=== PATIENT | female | born 1955 | race Caucasian/White ===

== ENCOUNTER → 2020-02-13 15:00 | Outpatient (REF) | payer MEDICAID, SELFPAY ==
--- NOTE | 2020-02-13 14:59 | CA_ITS ---
Transthoracic Echocardiogram Patient (Last, First, Middle): Amy Walker N Gender: Female Date of : 1955 Age: 64 Procedure Date: 02/13/2020 Procedure Type: Transthoracic Echocardiogram Location: OP Height: 154. cm Weight: 76.2 kg BSA: 1.75 m2 Heart Rate: bpm BP: 112 / 73 mmHg Iron Assorter: DSG Referring MD: Brendan Burks MD Symptoms: I42.9 Study Quality: Good ECG Rhythm: Sinus Conclusions: - The left ventricular systolic function is normal. The visually estimated ejection fraction is between 60-65%. Findings Procedure Information Contrast agent, definity, is being given per protocol without apparent complications. Left Ventricle Normal left ventricular cavity size. There is normal left ventricular wall thickness. The left ventricular systolic function is normal. The visually estimated ejection fraction is between 60-65%. There is no evidence of regional wall motion abnormalities. E/E prime ratio is <8, consistent with normal filling pressures. Evidence suggests grade I (mild) diastolic dysfunction. Right Ventricle Normal right ventricular cavity size and systolic function. Prior Study Comparison No significant change compared to prior study dated: 11/14/2019. Measurements 2D Systolic Function EF 4C: 58.60 >55% EF 2C: 71.80 >55% EF BiP: 63.20 >55% Mitral Valve MV Pk E: 0.46 MV PK A: 0.81 MV Decel Time: 74.00 E/A: 0.60 E'Lateral: 6.29 E'Medial: 4.64 E/E' Med: 9.80 E/E' Lat: 7.20 PHT: 22.00 MVA PHT: 10.00 Decel Green: 6.17 Diastolic Function MV Pk E: 0.46 MV Pk A: 0.81 E/A: 0.60 E'Medial: 4.64 E/E' Med: 9.80 E' Laterial: 6.29 E/E' Lat: 7.20 Updated in Other Vendor System with Status of Final Gus Dobbins MD electronically signed on 02/14/2020 11:59:12 AM with status of Final
== END ==
LOC: HO.CARD 15:00
PROVIDERS: PCP Family Medicine; Visit Provider Internal Medicine Cardiovascular Disease
DX: I42.9 Cardiomyopathy, unspecified (principal)
CPT/HCPCS: 70120; Q9957

== ENCOUNTER 2020-03-20 06:41 | Day surgery (SDC) | payer MEDICAID, SELFPAY ==
[2020-03-14 10:43] VITALS: BMI 33.6
--- NOTE | 2020-03-14 14:53 | HO.ANESPROP2 ---
Documented by User: Shannan Rosales 03/19/20 08:34 HPI - Anesthesia Eval Consult details Narrative: 64yo F for Colonoscopy s/p EGD and Colonoscopy with MAC during pt admit with DKA, GIB (seen by cardiology during admission and stated optimized and low risk) [facility] Past Medical History Medical History Anemia Ascending aorta dilatation Asthma CAD (coronary artery disease) CHF (congestive heart failure) Elevated cholesterol Fatty liver GERD (gastroesophageal reflux disease) History of alcohol dependence HTN (hypertension) Hx of acute pancreatitis Hx of acute renal failure Hx of diabetes with ketoacidosis Hx of non-ST elevation myocardial infarction (NSTEMI) IDDM (insulin dependent diabetes mellitus) Non-ischemic cardiomyopathy Sleep apnea Surgical History Surgical History History of cardiac cath History of esophagogastroduodenoscopy (EGD) History of partial hysterectomy Hx of cholecystectomy Hx of colonoscopy Hx of lithotripsy Social History Social History Alcohol intake: former Year quit: 2018 Smoking Status: Never smoker Advance Directives: No Advance Directives Information Provided: No Advance Directives on File: No Meds Allergies Allergy/AdvReac Type Severity Reaction Status Date / Time simvastatin [SIMVASTATIN] AdvReac Unknown Unknown Verified 03/20/20 07:05 Home Medications Medication Instructions Recorded Confirmed Type albuterol sulfate 2 puff INHALATION Q4-6H PRN 03/14/20 03/14/20 History aspirin [Aspir-81] 81 mg PO DAILY 03/14/20 03/14/20 History atorvastatin 40 mg PO BEDTIME 03/14/20 03/14/20 History calcium carbonate [Calcium 500] 500 mg PO DAILY 03/14/20 03/14/20 History carvedilol 3.125 mg PO BID 03/14/20 03/14/20 History ergocalciferol (vitamin D2) 1,250 mcg PO QWEEK 03/14/20 03/14/20 History [Vitamin D2] folic acid 1 mg PO DAILY 03/14/20 03/14/20 History insulin glargine [Lantus U-100 8 unit SUBCUT QPM 03/14/20 03/14/20 History Insulin] insulin lispro [Humalog U-100 1 sliding scale dose SUBCUT 12/16/20 12/16/20 History Insulin] USEASDIRECTD lisinopril 20 mg PO DAILY 03/14/20 03/14/20 History metformin 500 mg PO BID 03/14/20 03/14/20 History omeprazole 20 mg PO DAILY@1700 03/14/20 03/14/20 History Exam Exam Date and Time: March 14, 2020 1453 Height,Weight and Vital Signs: Height 5 ft 1 in Weight 80.739 kg Pertinent Lab Results Pertinent Lab Results: Laboratory Tests 11/21/19 11/21/19 10:33 10:33 WBC 5.9 Hgb 9.1 L Hct 28.5 L Plt Count 176 Sodium 141 Potassium 3.9 Chloride 108 BUN 8 L Creatinine 0.71 Narrative Narrative: Cath 2018: 40% stenosis LAD; No signif gradient on pullback across the aortic valve. ECHO 10/2019: - The left ventricular systolic function is normal. The visually estimated ejection fraction is between 60-65%. No RWMA EKG 10/2019: ST@114, otherwise nml Assessment and Plan Assessment Anesthesia Assessment: Chart Reviewed Documented by User: Jennifer Willoughby 03/20/20 07:16 [facility] Past Medical History Medical History Anemia Ascending aorta dilatation Asthma CAD (coronary artery disease) CHF (congestive heart failure) Elevated cholesterol Fatty liver GERD (gastroesophageal reflux disease) History of alcohol dependence HTN (hypertension) Hx of acute pancreatitis Hx of acute renal failure Hx of diabetes with ketoacidosis Hx of non-ST elevation myocardial infarction (NSTEMI) IDDM (insulin dependent diabetes mellitus) Non-ischemic cardiomyopathy Sleep apnea Surgical History Surgical History History of cardiac cath History of esophagogastroduodenoscopy (EGD) History of partial hysterectomy Hx of cholecystectomy Hx of colonoscopy Hx of lithotripsy Social History Social History (Reviewed 12/22/20 @ 07:15 by Jennifer Rao Alcohol intake: former Year quit: 2019 Smoking Status: Never smoker Advance Directives: No Advance Directives Information Provided: No Advance Directives on File: No Meds Allergies Allergy/AdvReac Type Severity Reaction Status Date / Time simvastatin [SIMVASTATIN] AdvReac Unknown Unknown Verified 03/20/20 07:05 Home Medications Medication Instructions Recorded Confirmed Type albuterol sulfate 2 puff INHALATION Q4-6H PRN 03/14/20 03/14/20 History aspirin [Aspir-81] 81 mg PO DAILY 03/14/20 03/14/20 History atorvastatin 40 mg PO BEDTIME 03/14/20 03/14/20 History calcium carbonate [Calcium 500] 500 mg PO DAILY 03/14/20 03/14/20 History carvedilol 3.125 mg PO BID 03/14/20 03/14/20 History ergocalciferol (vitamin D2) 1,250 mcg PO QWEEK 03/14/20 03/14/20 History [Vitamin D2] folic acid 1 mg PO DAILY 03/14/20 03/14/20 History insulin glargine [Lantus U-100 8 unit SUBCUT QPM 03/14/20 03/14/20 History Insulin] insulin lispro [Humalog U-100 1 sliding scale dose SUBCUT 03/14/20 03/14/20 History Insulin] USEASDIRECTD lisinopril 20 mg PO DAILY 03/14/20 03/14/20 History metformin 500 mg PO BID 03/14/20 03/14/20 History omeprazole 20 mg PO DAILY@1700 03/14/20 03/14/20 History Exam Airway TM Dist: >3cm Neck ROM: Full
[2020-03-20 06:46] VITALS: BP 113/58; PULSE 91; RESP 16; TEMP 36.1; O2SAT 98
[2020-03-20 07:01] LABS: Glucose, Whole Blood 102 mg/dL (60-115)
[2020-03-20] MEDS: Lactated Ringers 1,000 ML 50 ML IVCONT (07:19)
--- NOTE | 2020-03-20 07:28 | W.PM.OPN ---
Operative Note Operative Note Date of Service: 03/20/20 Narrative: Pre-op diagnosis: screening, hx of colon polyps Post-op diagnosis: other (colon polyps, diverticulosis) Procedure: COLONOSCOPY TILL CECUM WITH BIOPSY, SNARE POLYPECTOMY AND SUBMUCOSAL INJECTION Consent: Indications for the procedure and potential complications of bleeding, perforation, reaction to medications and missed diagnosis were discussed with the patient and informed consent was obtained. Instrument: Olympus PCF H 190 L variable stiffness pediatric colonoscope Monitoring: Vital signs and clinical assessment, intermittent blood pressure monitoring, continuous EKG monitoring, Pulse oximetry and Carbon Dioxide monitoring were done throughout the procedure. Colon withdrawl time was 15 minutes. Procedure: The patient was placed in the left lateral decubitis position and pre-procedure medications were administered. After a digital rectal examination of the ano-rectum, the video colonoscope was inserted into the rectum and advanced through the colon to the cecum. The colonoscope was slowly withdrawn in a retrograde panoramic fashion and the colon mucosa was carefully examined including a retroflexed view of the rectum. Findings and interventions are described below. Procedure Difficulty: Without difficulty Findings: Terminal Ileum: Not evaluated Cecum: Normal Ascending Colon: A 4-5 mm sessile polyp in the proximal AC removed with a cold bx and placed in specimen jar labelled AC #1. A 1 cms polyp at 75 cms in distal AC at site of previous polypectomy raised with 5 cc of normal saline (submucosal injection) and removed with a hot snare Transverse Colon: A 4-5 mm sessile polyp removed with a cold bx. Descending Colon: Moderate diverticulosis Sigmoid Colon: Polypectomy site noted without recurrent polyp. Moderate diverticulosis Rectum: A 10-12 mm sessile polyp removed with a hot snare. Ano-rectum: Moderate internal hemorrhoids Colon preparation: Excellent after some irrigation Impression and Post Procedure Diagnosis: Colonoscopy Findings: Four polyps removed Moderate diverticulosis seen in the left colon Moderate hemorrhoids on retroflexed exam. Plan: Await pathology results Patient has an appointment on 04/12/20 in the GI Clinic with Migue Breen M.D.. Repeat Colonoscopy interval based on path results - in 1-2 years if polyps are adenomatous. Above findings were reviewed with the patient and colon polyps and diverticulosis handouts were given in the discharge area Surgeon: Migue Breen MD Anesthesia: MAC (Rama Kirkland CRNA) Estimated blood loss (mL): 0 Pathology: other (A: ASCENDING COLON POLYP #1 B: ASCENDING COLON POLYP AT 75CM C: TRANSVERSE COLON POLYP D: RECTAL POLYP) Condition: stable Disposition: PACU
--- NOTE | 2020-03-20 07:28 | MHC.SHP ---
Pre-Procedural Eval Section B Chief Complaint: Colon Polyps Details of Present Illness: colon cancer screening Relevant Family History (Specify if Yes): No Relevant Social History: None Present Medications: see Short Stay Collaborative assessment Medical History: Significant History (Hypertension. Lagophthalmos. Obesity. obstructive sleep apnea (JUAN DANIEL). Stress urinary incontinence. Fatty liver. Hyperlipidemia. Hx of alcohol dependence. type II diabetes. Ascending aorta dilatation. Asthma. Non ST segment M) History of Previous Operations: Relevant previous surgery/procedure and date(s) (partial hysterectomy lithotripsy cholecystectomy ) Allergies: Allergies Allergy/AdvReac Type Severity Reaction Status Date / Time simvastatin [SIMVASTATIN] AdvReac Unknown Unknown Verified 03/20/20 07:05 Review of Systems Sugical H&P ROS: Negative: Constitution, Cardiovascular, Respiratory and Gastrointestinal Exam Surgical H&P Exam: Normal: Heart, Normal: Lungs, Normal: Extremities and Normal: Abdomen Plan Diagnosis/Plan: Unchanged I have reviewed the history and physical and performed a pertinent physical examination on my patient. No changes have occurred unless specified.
[2020-03-20 08:27] VITALS: BP 96/55; PULSE 88; RESP 18; TEMP 36.6; O2SAT 100
[2020-03-20 08:32] VITALS: BP 98/57; PULSE 79; RESP 16; O2SAT 99
[2020-03-20 08:37] VITALS: BP 107/59; PULSE 75; RESP 16; O2SAT 97
[2020-03-20 08:42] VITALS: BP 116/58; PULSE 71; RESP 16; TEMP 36.6; O2SAT 98
--- NOTE | 2020-03-20 09:27 | HO.POSTANES ---
Post Anesthesia Evaluation Post Anesthesia Evaluation Vital Signs: Vital Signs Temp Pulse Resp BP Pulse Ox 03/20/20 08:42 97.8 F 71 16 116/58 L 98 03/20/20 08:37 75 16 107/59 L 97 03/20/20 08:32 79 16 98/57 L 99 03/20/20 08:27 97.8 F 88 18 96/55 L 100 03/20/20 06:46 97.0 F 91 16 113/58 L 98 Anesthesia: Monitored Mental Status: Awake Pain Control: Satisfactory Nausea/Vomiting: None Hydration: Adequate Anesthesia-Related Issues: No Anes. Related Issues
== END 2020-03-20 09:45 | disposition home or self-care (01) ==
PROVIDERS: PCP Family Medicine; Visit Provider Internal Medicine Gastroenterology
PROC: 0DJD8ZZ Inspection of Lower Intestinal Tract, Via Natural or Artificial Opening Endoscopic (ICD-10-PCS; CPT 45378; principal; 2020-03-20 07:30)
DX: Z12.11 Encounter for screening for malignant neoplasm of colon (principal); Z86.010 Personal history of colon polyps; D12.2 Benign neoplasm of ascending colon; K63.5 Polyp of colon; K62.1 Rectal polyp; K57.30 Diverticulosis of large intestine without perforation or abscess without bleeding; D64.9 Anemia, unspecified; I42.9 Cardiomyopathy, unspecified; J45.909 Unspecified asthma, uncomplicated; E11.9 Type 2 diabetes mellitus without complications; Z79.82 Long term (current) use of aspirin; Z79.51 Long term (current) use of inhaled steroids; Z79.4 Long term (current) use of insulin; G47.33 Obstructive sleep apnea (adult) (pediatric)
CPT/HCPCS: 45385; 45380; 45381; 82947; 88305

== ENCOUNTER → 2020-04-12 12:49 | Outpatient (BNVA) | payer MEDICAID, SELFPAY | PROVIDERS: PCP Family Medicine; Referring Provider Family Medicine; Visit Provider Internal Medicine Gastroenterology | DX: Z76.89 Persons encountering health services in other specified circumstances (principal) ==

== ENCOUNTER → 2020-07-02 14:04 | Outpatient (BNVA) | payer MEDICAID, SELFPAY | PROVIDERS: PCP Family Medicine; Visit Provider Internal Medicine Gastroenterology | DX: R10.10 Upper abdominal pain, unspecified (principal); D64.9 Anemia, unspecified; K86.1 Other chronic pancreatitis; K57.90 Diverticulosis of intestine, part unspecified, without perforation or abscess without bleeding; R74.8 Abnormal levels of other serum enzymes; Z86.010 Personal history of colon polyps | CPT/HCPCS: 99212 ==

== ENCOUNTER 2020-07-27 12:20 | Outpatient (REF) | payer MEDICAID, SELFPAY ==
[2020-07-27 13:15] LABS: MANUAL DIFF FLAG NO
[2020-07-27 13:19] LABS: Basophils Percent Auto 0.3 % (0-2); Eosinophils Absolute Auto 0.2 X10*3/uL (0.0-0.4); Eosinophils Percent Auto 1.5 % (0-4); Hematocrit 32.1 % (37-47); Hemoglobin 10.2 g/dl (12.0-16.0); Imm Gran Abs Auto 0.02 X10*3/uL (0.00-0.03); Imm Gran Pct Auto 0.2 % (0.0-0.4); Lymphocytes Absolute Auto 4.7 X10*3/uL (1.2-4.9); Lymphocytes Percent Auto 43.1 % (20-40); Mean Corpuscular HGB Conc 31.8 g/dl (31.0-35.0); Mean Corpuscular Hemoglobin 28.7 pg (27.0-33.0); Mean Corpuscular Volume 90.4 fL (80-98); Monocytes Absolute Auto 0.8 X10*3/uL (0.1-1.2); Monocytes Percent Auto 7.1 % (2-11); Neutrophils Absolute Auto 5.2 X10*3/uL (2.0-8.3); Neutrophils Percent Auto 47.8 % (45-73); Platelet Count 258 X10*3/uL (160-400); Red Blood Count 3.55 X10*6/uL (4.20-5.50); Red Cell Distribution Width 12.2 % (11.0-16.0); White Blood Count 10.9 X10*3/uL (4.8-10.8)
[2020-07-27 13:45] LABS: Alanine Aminotransferase 30 U/L (0-31); Alkaline Phosphatase 110 U/L (39-117); Anion Gap 23 (12-20); Aspartate Amino Transferase 32 U/L (5-31); Bilirubin Total 0.7 mg/dL (0.0-1.0); Blood Urea Nitrogen 24 mg/dL (9-16); Calcium 10.3 mg/dL (8.4-10.2); Carbon Dioxide 20 mmol/L (22-29); Chloride 96 mmol/L (96-108); Estimated Glomerular Filt Rate 25; Glucose Random 674 mg/dL (60-115); Potassium 5.3 mmol/L (3.3-5.1); Sodium 134 mmol/L (135-145); Total Protein 6.7 g/dL (6.5-8.0)
[2020-07-27 14:03] LABS: Ferritin 751 ng/mL (10-250); Lipase 249 U/L (8-78)
[2020-07-27 16:53] LABS: Folate > 20.0 ng/mL (> or = 4.0); Vitamin B12 431 pg/mL (200-900)
[2020-07-28 10:47] LABS: Carbohydrate Antigen 19-9 6 U/mL (<34)
== END 2020-07-27 12:21 | disposition home or self-care (01) ==
LOC: HO.CT 12:20
PROVIDERS: PCP Family Medicine; Visit Provider Internal Medicine Gastroenterology
DX: R10.10 Upper abdominal pain, unspecified (principal); K86.1 Other chronic pancreatitis; D64.9 Anemia, unspecified; R74.8 Abnormal levels of other serum enzymes
CPT/HCPCS: 36415; 80053; 82378; 82607; 82728; 82746; 83690; 85025; 85610; 86301

== ENCOUNTER 2020-07-27 14:46 | Inpatient (IN) | payer MEDICAID, SELFPAY ==
--- NOTE | ~2020-07-27 | CT_ITS ---
EXAMINATION: CT ABDOMEN AND PELVIS WITHOUT CONTRAST CLINICAL INFORMATION: Pancreatitis COMPARISON: CT scan abdomen pelvis 11/08/2019. MR abdomen 11/11/2019. Limited ultrasound abdomen 11/09/2019 TECHNIQUE: Multidetector volumetric imaging was performed from the superior aspect of the liver through the pubic symphysis. Sagittal and coronal reformatted images were obtained on the technologist's workstation. No IV contrast. Oral contrast present within the colon. This CT examination was performed using dose optimization techniques as appropriate, variously including the following: *Automated exposure control *Adjustment of mA and/or kV according to patient size (this includes techniques or standardized protocols for targeted exams where dose is matched to indication/reason for exam; i.e. extremities or head) *Use of iterative reconstruction technique DLP: 481 mGy-cm FINDINGS: LUNG BASES: The visualized lung bases are unremarkable. LIVER, GALLBLADDER, AND BILIARY TREE: Status post cholecystectomy. Chronic dilatation of the extrahepatic CBD measuring 1 cm. No calcified stones in the bile duct. No focal liver lesion. Right lobe of liver measures 14 cm superior inferior. PANCREAS: Changes of chronic pancreatitis. There is dilatation of the pancreatic duct. There are coarse calcifications at the head and body of the pancreas. No acute abnormality. No inflammation around the pancreas. No pseudocyst formation. SPLEEN: Unremarkable. ADRENAL GLANDS: Unremarkable. KIDNEYS AND URETERS: Prominent extrarenal pelvis of the right kidney. No hydronephrosis. No renal or ureteral calculi. No renal mass or cyst. BLADDER: Unremarkable. GASTROINTESTINAL TRACT: Contrast within the colon. There are numerous diverticula in the left colon. There is no diverticulitis. There is no bowel wall thickening /edema. There is no bowel obstruction. There is a moderate volume of stool in the colon. The appendix is normal . The small bowel loops are unremarkable. The stomach is normal. There is no hiatal hernia. ABDOMINAL WALL: No significant hernia is appreciated. LYMPH NODES: Normal. VASCULAR: Atherosclerotic vascular calcifications of aorta and iliac arteries. There is no aneurysm. PELVIC VISCERA: Uterus is anteverted. There are calcified fibroids in the uterus. There is no adnexal abnormality. OSSEOUS STRUCTURES: Unremarkable. CT/CT abdomen pelvis wo con IMPRESSION: 1. No acute abnormality. 2. Changes of chronic pancreatitis but no acute inflammatory changes of the pancreas. 3. Status post cholecystectomy. Chronic dilatation of the bile duct. No calcified stone in the bile ducts. 4. Diverticulosis of the colon. No acute abnormality of the bowel.
[2020-07-27 15:33] VITALS: BP 98/52; PULSE 98; RESP 18; TEMP 36.7; O2SAT 98; BMI 25.4
--- NOTE | 2020-07-27 15:42 | ECG_ITS ---
Test Reason : ABNORMAL LABS Blood Pressure : / mmHG Vent. Rate : 093 BPM Atrial Rate : 093 BPM P-R Int : 162 ms QRS Dur : 080 ms QT Int : 370 ms P-R-T Axes : 040 -14 026 degrees QTc Int : 460 ms Normal sinus rhythm Nonspecific ST and T wave abnormality Abnormal ECG When compared with ECG of 13-NOV-2019 18:32, No significant change was found Referred By: Generic ED Physician Electronically Signed By:JOSIANE MCCLURE MD
[2020-07-27 15:55] LABS: Glucose, Whole Blood 592 mg/dL (60-115)
[2020-07-27 15:55] LABS: Glucose, Whole Blood > 600 mg/dL (60-115)
[2020-07-27 15:57] LABS: MANUAL DIFF FLAG NO
[2020-07-27 16:00] LABS: Basophils Percent Auto 0.3 % (0-2); Eosinophils Absolute Auto 0.2 X10*3/uL (0.0-0.4); Eosinophils Percent Auto 1.5 % (0-4); Hematocrit 32.4 % (37-47); Hemoglobin 10.4 g/dl (12.0-16.0); Imm Gran Abs Auto 0.03 X10*3/uL (0.00-0.03); Imm Gran Pct Auto 0.3 % (0.0-0.4); Lymphocytes Absolute Auto 4.5 X10*3/uL (1.2-4.9); Lymphocytes Percent Auto 38.1 % (20-40); Mean Corpuscular HGB Conc 32.1 g/dl (31.0-35.0); Mean Corpuscular Volume 90.3 fL (80-98); Mean Platelet Volume 11.5 fL (9.4-12.3); Monocytes Percent Auto 8.2 % (2-11); Neutrophils Absolute Auto 6.1 X10*3/uL (2.0-8.3); Neutrophils Percent Auto 51.6 % (45-73); Platelet Count 238 X10*3/uL (160-400); Red Blood Count 3.59 X10*6/uL (4.20-5.50); Red Cell Distribution Width 12.3 % (11.0-16.0); White Blood Count 11.8 X10*3/uL (4.8-10.8)
[2020-07-27 16:40] LABS: Troponin-I High Sensitivity 9.5 ng/L (<3.5-17.0)
[2020-07-27 16:57] LABS: Anion Gap 25 (12-20); Blood Urea Nitrogen 24 mg/dL (9-16); Calcium 9.9 mg/dL (8.4-10.2); Carbon Dioxide 18 mmol/L (22-29); Chloride 94 mmol/L (96-108); Creatinine Clr Calc Pharmacy 21.8; Estimated Glomerular Filt Rate 22; Glucose Random 651 mg/dL (60-115); Potassium 5.3 mmol/L (3.3-5.1); Sodium 132 mmol/L (135-145)
[2020-07-27 17:16] LABS: Lipase 216 U/L (8-78)
[2020-07-27 17:17] LABS: Alanine Aminotransferase 32 U/L (0-31); Albumin Level 3.9 g/dL (3.5-5.0); Alkaline Phosphatase 109 U/L (39-117); Aspartate Amino Transferase 41 U/L (5-31); Bilirubin Direct 0.3 mg/dL (0.0-0.5); Bilirubin Total 0.6 mg/dL (0.0-1.0); Total Protein 6.7 g/dL (6.5-8.0)
[2020-07-27 17:54] LABS: Acetone, serum QL Moderate (Negative)
[2020-07-27] MEDS: 0.9 % Sodium Chloride 1,000 ML 999 ML IVCONT (18:38)
[2020-07-27] MEDS: Insulin Lispro 100 UNIT/ML 3 ML VIAL 14 UNIT SUBCUT (18:38)
--- NOTE | 2020-07-27 18:38 | ED.GENADULT ---
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 Patient started on insulin in 10/2019 along with metformin and then insulin was stopped and patient continued on pills. Since then patient has been having her blood sugar is in the range of 300-400 range patient broke her glucometer 2 months ago and could not check her blood sugar for last few days been feeling weak and sleeping all the time thirsty, urinating a lot. Patient denies vomiting feel nauseated with poor appetite Related Data Home Medications Medication Instructions Recorded Confirmed albuterol sulfate 2 puff INHALATION Q4-6H PRN 03/14/20 07/27/20 aspirin 81 mg PO DAILY 03/14/20 07/27/20 calcium carbonate [Calcium 500] 500 mg PO DAILY 03/14/20 07/27/20 carvedilol 3.125 mg PO BID 03/14/20 07/27/20 ergocalciferol (vitamin D2) 1,250 mcg PO QWEEK 03/14/20 07/27/20 [Vitamin D2] folic acid 1 mg PO DAILY 03/14/20 07/27/20 lisinopril 20 mg PO DAILY 03/14/20 07/27/20 metformin 500 mg PO BID 03/14/20 07/27/20 omeprazole 20 mg PO DAILY@1700 03/14/20 07/27/20 atorvastatin 40 mg tablet 80 mg PO BEDTIME tab 04/12/20 07/27/20 insulin glargine [Lantus U-100 8 unit SUBCUT DAILY 07/27/20 07/27/20 Insulin] Previous Rx's Medication Instructions Recorded [id number] 1 cap PO TID 30 Days #90 cap 07/02/20 12,000-38,000-60,000 unit capsule,delayed rel Allergies Allergy/AdvReac Type Severity Reaction Status Date / Time simvastatin [SIMVASTATIN] AdvReac Unknown Unknown Verified 07/27/20 15:30 Review of Systems Review of Systems: Constitutional : No Weight loss, No Fever, No Chills ENT/Mouth : No sore throat, No Rhinorrhea Eyes: No Eye Pain, No Swelling Cardiovascular : No Chest Pain, no palpitations Respiratory : No Cough, No Sputum, no shortness of breath Gastrointestinal : + Nausea, No Vomiting, No Diarrhea, + abdominal Pain, no black stools Genitourinary : No Dysuria, No Urinary Frequency Musculoskeletal : No joint pain, No Myalgias, No Joint Swelling Skin : No Skin Lesions, No rash Neuro : ++Weakness, No Numbness, No Dizziness, No Headache Psych : No Anxiety/Panic, No Depression Heme/Lymph: No Bruising, No Lymphadenopathy Endocrine : No Polyuria, No Polydipsia All other systems reviewed and are negative [facility] Past Medical History Medical History Anemia Ascending aorta dilatation Asthma CAD (coronary artery disease) CHF (congestive heart failure) Elevated cholesterol Fatty liver GERD (gastroesophageal reflux disease) History of alcohol dependence HTN (hypertension) Hx of acute pancreatitis Hx of acute renal failure Hx of diabetes with ketoacidosis Hx of non-ST elevation myocardial infarction (NSTEMI) IDDM (insulin dependent diabetes mellitus) Non-ischemic cardiomyopathy Sleep apnea Surgical History History of cardiac cath History of esophagogastroduodenoscopy (EGD) History of partial hysterectomy Hx of cholecystectomy Hx of colonoscopy Hx of lithotripsy Family History Family History Father History of heart attack Mother No problems noted. Social History Social History Household Members: Family Alcohol intake: never Smoking Status: Never smoker Smoked in Last 30 Days: No Use of substances other than those prescribed or required for medical reasons: No Any prior treatment program specific to substance use: No Advance Directives: No Advance Directives Information Provided: Yes Physical Exam Vital Signs: Vital Signs: Last Vital Signs Temp 98.1 F 07/27/20 21:58 Pulse 74 07/27/20 23:01 Resp 20 07/27/20 23:01 BP 106/62 07/27/20 23:01 Pulse Ox 97 07/27/20 23:01 Body Mass Index 25.4 Appearance: Alert. Oriented X3. No acute distress. Eyes: PERRLA, No Nystagmus ENT: Pharynx normal. Oral Mucosa dry Neck: Normal inspection. Neck supple. CVS: Normal heart rate and rhythm. Pulses normal. Respiratory: No respiratory distress. Equal air entry bilateral, no wheezing/rales/rhonchi Abdomen: Soft and nontender. Bowel sounds are present, no mass palpable, no CVA tenderness Skin: Skin warm and dry. Normal skin color. Normal skin turgor. Extremities: No lower extremity edema. No calf tenderness Neuro: Oriented X 3. No motor deficit. No sensory deficit.No cerebellar signs , cranial nerves II-XII intact Medical Decision Making MDM Narrative Medical decision making narrative: Patient's acute renal failure with blood sugar of 651 metabolic acidosis creatinine 2.2 bicarb of 18 with anion gap of 25 serum ketones positive. Patient received IV fluids and insulin labs improved creatinine decreased to 1.76 and anion gap close to 19 for bicarb is still 17 suggest a metabolic acidosis secondary to renal failure blood sugar is 396 now will admit patient for acute renal failure and hypercalcemia with ketoacidosis. Also patient lipase is elevated to [address] scan abdomen to rule out any fluid collection secondary to pancreatitis Patient's CT scan negative for any acute inflammation or fluid collection Lab Data Lab results reviewed: Yes I reviewed the patient's lab results. Result diagrams: 07/27/20 15:51 07/27/20 21:00 Labs: Lab Results 07/27/20 07/27/20 07/27/20 Range/Units 15:32 15:44 15:51 WBC 11.8 H (4.8-10.8) X10*3/uL RBC 3.59 L (4.20-5.50) X10*6/uL Hgb 10.4 L (12.0-16.0) g/dl Hct 32.4 L (37-47) % MCV 90.3 (80-98) fL MCH 29.0 (27.0-33.0) pg MCHC 32.1 (31.0-35.0) g/dl RDW 12.3 (11.0-16.0) % Plt Count 238 (160-400) X10*3/uL MPV 11.5 (9.4-12.3) fL Immature Gran % (Auto) 0.3 (0.0-0.4) % Neut % (Auto) 51.6 (45-73) % Lymph % (Auto) 38.1 (20-40) % [facility] % (Auto) 8.2 (2-11) % Eos % (Auto) 1.5 (0-4) % Baso % (Auto) 0.3 (0-2) % Lymph # (Auto) 4.5 (1.2-4.9) X10*3/uL [facility] # (Auto) 1.0 (0.1-1.2) X10*3/uL Eos # (Auto) 0.2 (0.0-0.4) X10*3/uL Baso # (Auto) 0.0 (0.0-0.2) X10*3/uL Abs Immat Gran (auto) 0.03 (0.00-0.03) X10*3/uL Absolute Neuts (auto) 6.1 (2.0-8.3) X10*3/uL Absolute Nucleated RBC 0.000 (0.0-0.012) X10*3/uL Nucleated RBC % (auto) 0.0 (0.0-0.2) /100WBC VBG pH (7.32-7.43) VBG pCO2 mmHg VBG pO2 mmHg VBG HCO3 (22-26) mmol/L VBG O2 Saturation % VBG Base Excess mmol/L Sodium (135-145) mmol/L Potassium (3.3-5.1) mmol/L Chloride (96-108) mmol/L Carbon Dioxide (22-29) mmol/L Anion Gap (12-20) BUN (9-16) mg/dL Creatinine (0.5-1.4) mg/dL Estim Creat Clear Calc Estimated GFR POC Glucose > 600 H* 592 H* (60-115) mg/dL Random Glucose (60-115) mg/dL Calcium (8.4-10.2) mg/dL Total Bilirubin (0.0-1.0) mg/dL Direct Bilirubin (0.0-0.5) mg/dL AST (5-31) U/L ALT (0-31) U/L Alkaline Phosphatase (39-117) U/L Troponin I High Sens (<3.5-17.0) ng/L Total Protein (6.5-8.0) g/dL Albumin (3.5-5.0) g/dL Lipase (8-78) U/L Acetone, Qual (Negative) 07/27/20 07/27/20 07/27/20 Range/Units 15:51 15:51 19:39 WBC (4.8-10.8) X10*3/uL RBC (4.20-5.50) X10*6/uL Hgb (12.0-16.0) g/dl Hct (37-47) % MCV (80-98) fL MCH (27.0-33.0) pg MCHC (31.0-35.0) g/dl RDW (11.0-16.0) % Plt Count (160-400) X10*3/uL MPV (9.4-12.3) fL Immature Gran % (Auto) (0.0-0.4) % Neut % (Auto) (45-73) % Lymph % (Auto) (20-40) % [facility] % (Auto) (2-11) % Eos % (Auto) (0-4) % Baso % (Auto) (0-2) % Lymph # (Auto) (1.2-4.9) X10*3/uL [facility] # (Auto) (0.1-1.2) X10*3/uL Eos # (Auto) (0.0-0.4) X10*3/uL Baso # (Auto) (0.0-0.2) X10*3/uL Abs Immat Gran (auto) (0.00-0.03) X10*3/uL Absolute Neuts (auto) (2.0-8.3) X10*3/uL Absolute Nucleated RBC (0.0-0.012) X10*3/uL Nucleated RBC % (auto) (0.0-0.2) /100WBC VBG pH (7.32-7.43) VBG pCO2 mmHg VBG pO2 mmHg VBG HCO3 (22-26) mmol/L VBG O2 Saturation % VBG Base Excess mmol/L Sodium 132 L (135-145) mmol/L Potassium 5.3 H (3.3-5.1) mmol/L Chloride 94 L (96-108) mmol/L Carbon Dioxide 18 L (22-29) mmol/L Anion Gap 25 H (12-20) BUN 24 H (9-16) mg/dL Creatinine 2.22 H (0.5-1.4) mg/dL Estim Creat Clear Calc 21.8 Estimated GFR 22 POC Glucose 511 H* (60-115) mg/dL Random Glucose 651 H* (60-115) mg/dL Calcium 9.9 (8.4-10.2) mg/dL Total Bilirubin 0.6 (0.0-1.0) mg/dL Direct Bilirubin 0.3 (0.0-0.5) mg/dL AST 41 H (5-31) U/L ALT 32 H (0-31) U/L Alkaline Phosphatase 109 (39-117) U/L Troponin I High Sens 9.5 (<3.5-17.0) ng/L Total Protein 6.7 (6.5-8.0) g/dL Albumin 3.9 (3.5-5.0) g/dL Lipase 216 H (8-78) U/L Acetone, Qual Moderate H (Negative) 07/27/20 Range/Units 20:18 WBC (4.8-10.8) X10*3/uL RBC (4.20-5.50) X10*6/uL Hgb (12.0-16.0) g/dl Hct (37-47) % MCV (80-98) fL MCH (27.0-33.0) pg MCHC (31.0-35.0) g/dl RDW (11.0-16.0) % Plt Count (160-400) X10*3/uL MPV (9.4-12.3) fL Immature Gran % (Auto) (0.0-0.4) % Neut % (Auto) (45-73) % Lymph % (Auto) (20-40) % [facility] % (Auto) (2-11) % Eos % (Auto) (0-4) % Baso % (Auto) (0-2) % Lymph # (Auto) (1.2-4.9) X10*3/uL [facility] # (Auto) (0.1-1.2) X10*3/uL Eos # (Auto) (0.0-0.4) X10*3/uL Baso # (Auto) (0.0-0.2) X10*3/uL Abs Immat Gran (auto) (0.00-0.03) X10*3/uL Absolute Neuts (auto) (2.0-8.3) X10*3/uL Absolute Nucleated RBC (0.0-0.012) X10*3/uL Nucleated RBC % (auto) (0.0-0.2) /100WBC VBG pH 7.37 (7.32-7.43) VBG pCO2 34 mmHg VBG pO2 50 mmHg VBG HCO3 20 L (22-26) mmol/L VBG O2 Saturation 80.0 % VBG Base Excess -4.1 mmol/L Sodium (135-145) mmol/L Potassium (3.3-5.1) mmol/L Chloride (96-108) mmol/L Carbon Dioxide (22-29) mmol/L Anion Gap (12-20) BUN (9-16) mg/dL Creatinine (0.5-1.4) mg/dL Estim Creat Clear Calc Estimated GFR POC Glucose (60-115) mg/dL Random Glucose (60-115) mg/dL Calcium (8.4-10.2) mg/dL Total Bilirubin (0.0-1.0) mg/dL Direct Bilirubin (0.0-0.5) mg/dL AST (5-31) U/L ALT (0-31) U/L Alkaline Phosphatase (39-117) U/L Troponin I High Sens (<3.5-17.0) ng/L Total Protein (6.5-8.0) g/dL Albumin (3.5-5.0) g/dL Lipase (8-78) U/L Acetone, Qual (Negative) Critical Care Time Critical Care Time Critical Care Time: Yes Total Critical Care Time: 45 Attestation: I spent 45 minutes of critical care, with interventions, assessments, speaking to patient and family. Discharge Plan Discharge Clinical Impression: Diabetic ketoacidosis associated with type 2 diabetes mellitus Qualifiers: Diabetes mellitus complication detail: without coma Qualified Code(s): E11.10 - Type 2 diabetes mellitus with ketoacidosis without coma Acute renal failure (ARF) Qualifiers: Acute renal failure type: with acute renal cortical necrosis Qualified Code(s): N17.1 - Acute kidney failure with acute cortical necrosis Acute pancreatitis Qualifiers: Pancreatitis type: other Acute pancreatitis complication: unspecified Qualified Code(s): K85.80 - Other acute pancreatitis without necrosis or infection Patient Disposition: Admitted As Inpatient
[2020-07-27 19:17] VITALS: BP 96/57; PULSE 88; RESP 18; TEMP 37.1; O2SAT 98
[2020-07-27 19:44] LABS: Glucose, Whole Blood 511 mg/dL (60-115)
[2020-07-27] MEDS: Insulin Lispro 100 UNIT/ML 3 ML VIAL 10 UNIT SUBCUT ×2 (19:51→22:26)
[2020-07-27] MEDS: Insulin Glargine,Hum.rec.anlog 100 UNIT/ML 10 ML VIAL 20 UNIT SUBCUT (19:51)
--- NOTE | 2020-07-27 19:52 | PC.NURSE ---
ilan [phone] daughter
[2020-07-27 20:24] LABS: Venous Blood Gas Refer to POC result
[2020-07-27 20:25] LABS: VBG Base Excess -4.1 mmol/L; VBG HCO3 20 mmol/L (22-26); VBG pCO2 34 mmHg; VBG pH 7.37 (7.32-7.43); VBG pO2 50 mmHg
[2020-07-27 21:04] LABS: Glucose, Whole Blood 449 mg/dL (60-115)
[2020-07-27 21:39] LABS: COVID-19 Test Negative (Negative)
[2020-07-27 21:58] VITALS: BP 103/66; PULSE 86; RESP 20; TEMP 36.7; O2SAT 98
[2020-07-27] MEDS: 0.9 % Sodium Chloride 1,000 ML 999 ML IV (22:09)
[2020-07-27 22:12] LABS: Anion Gap 19 (12-20); Blood Urea Nitrogen 22 mg/dL (9-16); Calcium 8.7 mg/dL (8.4-10.2); Carbon Dioxide 17 mmol/L (22-29); Chloride 104 mmol/L (96-108); Creatinine Clr Calc Pharmacy 27.5; Estimated Glomerular Filt Rate 29; Glucose Random 396 mg/dL (60-115); Potassium 4.2 mmol/L (3.3-5.1); Sodium 136 mmol/L (135-145)
[2020-07-27] MEDS: Sodium Bicarbonate 8.4% 50 MEQ/50 ML VIAL IVPUSH (22:26)
--- NOTE | 2020-07-27 22:38 | P.HPHOSP_ITS ---
History of Present Illness Date of Service: 07/27/20 Chief Complaint: Abdominal pain 64-year-old female with a past medical history of hypertension, hyperlipidemia, diabetes, coronary artery disease, CHF, GERD, anemia, ascending aortic dilation presented to the hospital with a chief complaint of abdominal pain. Patient reported that she has been having abdominal discomfort for about 2 months, intermittent in nature, worsens after eating, associated with nausea. Denies any blood in the vomitus or blood in the stool. Denies any chest pain or palpitations. Today she went to the gastroenterology clinic for a evaluation/CT scan which she was noted to have fingerstick glucose of 600 subsequently sent to the ER for further evaluation. Patient denies any numbness tingling fevers chills cough. Patient also mentioned that she used to be on insulin but insulin was stopped by her PCP. Patient reports that she has been feeling weak in general and has been sleeping a lot. Denies any urinary symptoms. Patient also reports that because of the abdominal pain she has decreased oral intake. Review of all other systems is negative except mentioned above ER course: Per ER team patient on presentation noted to have elevated blood glucose in 600s, renal insufficiency, elevated anion gap, normal pH. Patient w as given IV fluids and glargine insulin, Humalog insulin. Fingerstick glucose levels gradually improved to the 300s. Admitted for further management. [facility] Medical History Anemia Ascending aorta dilatation Asthma CAD (coronary artery disease) CHF (congestive heart failure) Elevated cholesterol Fatty liver GERD (gastroesophageal reflux disease) History of alcohol dependence HTN (hypertension) Hx of acute pancreatitis Hx of acute renal failure Hx of diabetes with ketoacidosis Hx of non-ST elevation myocardial infarction (NSTEMI) IDDM (insulin dependent diabetes mellitus) Non-ischemic cardiomyopathy Sleep apnea Family History Father History of heart attack Mother No problems noted. Surgical History History of cardiac cath History of esophagogastroduodenoscopy (EGD) History of partial hysterectomy Hx of cholecystectomy Hx of colonoscopy Hx of lithotripsy Social History Household Members: Family Alcohol intake: never Smoking Status: Never smoker service: No Current occupational status: retired Meds Allergies Allergy/AdvReac Type Severity Reaction Status Date / Time simvastatin [SIMVASTATIN] AdvReac Unknown Unknown Verified 07/27/20 15:30 Active Medications: Current Medications Generic Name Dose Route Start Last Admin Trade Name Freq PRN Reason Stop Dose Admin Acetaminophen 650 mg 07/27/20 20:48 Acetaminophen 325 Mg Tablet PO Q6H PRN Pain, Mild (Pain Scale 1-3) Docusate Sodium 100 mg 07/27/20 20:48 Docusate Sodium 100 Mg Capsule PO DAILY PRN Constipation Insulin Glargine 20 unit 07/28/20 21:00 Insulin Glargine,Hum.Rec.Anlog 100 Unit/Ml 10 Ml Vial SUBCUT BEDTIME [facility] Insulin Human Lispro 0 unit 07/28/20 07:30 Insulin Lispro 100 Unit/Ml 3 Ml Vial SUBCUT QIDACHS [facility] Protocol Sodium Chloride 3 ml 07/28/20 00:00 0.9 % Sodium Chloride Flush 3 [facility] Medications Medication Instructions Recorded Confirmed Last Taken Type albuterol sulfate 2 puff INHALATION Q4-6H PRN 03/14/20 07/27/20 Unknown History aspirin 81 mg PO DAILY 03/14/20 07/27/20 Unknown History carvedilol 3.125 mg PO BID 03/14/20 07/27/20 Unknown History ergocalciferol (vitamin D2) 1,250 mcg PO MO@09 03/14/20 07/28/20 Unknown History [Vitamin D2] folic acid 1 mg PO DAILY 03/14/20 07/27/20 Unknown History lisinopril 20 mg PO DAILY 03/14/20 07/27/20 Unknown History metformin 500 mg PO BID 03/14/20 07/27/20 Unknown History omeprazole 20 mg PO DAILY@1700 03/14/20 07/27/20 Unknown History Lantus U-100 Insulin 8 unit SUBCUT DAILY 07/27/20 07/27/20 Unknown History atorvastatin 80 mg PO BEDTIME 07/28/20 07/28/20 Unknown History calcium carbonate [Calcium Antacid] 1 tab PO BID 07/28/20 07/28/20 Unknown History Physical Exam Vital Signs and Narrative: Vital Signs: Last Vital Signs Temp 98.1 F 07/27/20 21:58 Pulse 86 07/27/20 21:58 Resp 20 07/27/20 21:58 BP 103/66 07/27/20 21:58 Pulse Ox 98 07/27/20 21:58 Body Mass Index 25.4 Gen: Appears be in no acute distress HEENT: NCAT, dry mucosa. Pulmonary: Vesicular breath sounds, fair air entry CVS: Normal S1-S2 Abdomen: BS+, Soft, mildly tender diffusely, no guarding no rigidity. Extremities: Warm well perfused Neuro: Alert and awake. Results Labs CBC and Chem 7: 07/28/20 06:53 07/28/20 06:53 Labs: Laboratory Results - last 24 hr 07/27/20 07/27/20 07/27/20 15:32 15:44 15:51 MCV 90.3 MCH 29.0 MCHC 32.1 RDW 12.3 Plt Count 238 MPV 11.5 Immature Gran % (Auto) 0.3 Neut % (Auto) 51.6 Lymph % (Auto) 38.1 [place] % (Auto) 8.2 Eos % (Auto) 1.5 Baso % (Auto) 0.3 Lymph # (Auto) 4.5 [place] # (Auto) 1.0 Eos # (Auto) 0.2 Baso # (Auto) 0.0 Abs Immat Gran (auto) 0.03 Absolute Neuts (auto) 6.1 Absolute Nucleated RBC 0.000 Nucleated RBC % (auto) 0.0 VBG pH VBG pCO2 VBG pO2 VBG HCO3 VBG O2 Saturation VBG Base Excess Anion Gap Estim Creat Clear Calc Estimated GFR POC Glucose > 600 H* 592 H* Random Glucose Calcium Total Bilirubin Direct Bilirubin AST ALT Alkaline Phosphatase Troponin I High Sens Total Protein Albumin Lipase Acetone, Qual COVID-19 ([facility]LE) COVID-19 Clin Com 07/27/20 07/27/20 07/27/20 15:51 15:51 19:39 MCV MCH MCHC RDW Plt Count MPV Immature Gran % (Auto) Neut % (Auto) Lymph % (Auto) [place] % (Auto) Eos % (Auto) Baso % (Auto) Lymph # (Auto) [place] # (Auto) Eos # (Auto) Baso # (Auto) Abs Immat Gran (auto) Absolute Neuts (auto) Absolute Nucleated RBC Nucleated RBC % (auto) VBG pH VBG pCO2 VBG pO2 VBG HCO3 VBG O2 Saturation VBG Base Excess Anion Gap 25 H Estim Creat Clear Calc 21.8 Estimated GFR 22 POC Glucose 511 H* Random Glucose 651 H* Calcium 9.9 Total Bilirubin 0.6 Direct Bilirubin 0.3 AST 41 H ALT 32 H Alkaline Phosphatase 109 Troponin I High Sens 9.5 Total Protein 6.7 Albumin 3.9 Lipase 216 H Acetone, Qual Moderate H COVID-19 (IS[facility]ELLE) COVID-19 Clin Com 07/27/20 07/27/20 07/27/20 20:18 20:58 21:00 MCV MCH MCHC RDW Plt Count MPV Immature Gran % (Auto) Neut % (Auto) Lymph % (Auto) [place] % (Auto) Eos % (Auto) Baso % (Auto) Lymph # (Auto) [place] # (Auto) Eos # (Auto) Baso # (Auto) Abs Immat Gran (auto) Absolute Neuts (auto) Absolute Nucleated RBC Nucleated RBC % (auto) VBG pH 7.37 VBG pCO2 34 VBG pO2 50 VBG HCO3 20 L VBG O2 Saturation 80.0 VBG Base Excess -4.1 Anion Gap Estim Creat Clear Calc Estimated GFR POC Glucose 449 H* Random Glucose Calcium Total Bilirubin Direct Bilirubin AST ALT Alkaline Phosphatase Troponin I High Sens Total Protein Albumin Lipase Acetone, Qual COVID-19 (ISABELLE) Negative COVID-19 [employer] Com See Note 07/27/20 21:00 MCV MCH MCHC RDW Plt Count MPV Immature Gran % (Auto) Neut % (Auto) Lymph % (Auto) [place] % (Auto) Eos % (Auto) Baso % (Auto) Lymph # (Auto) [place] # (Auto) Eos # (Auto) Baso # (Auto) Abs Immat Gran (auto) Absolute Neuts (auto) Absolute Nucleated RBC Nucleated RBC % (auto) VBG pH VBG pCO2 VBG pO2 VBG HCO3 VBG O2 Saturation VBG Base Excess Anion Gap 19 Estim Creat Clear Calc 27.5 Estimated GFR 29 POC Glucose Random Glucose 396 H* Calcium 8.7 D Total Bilirubin Direct Bilirubin AST ALT Alkaline Phosphatase Troponin I High Sens Total Protein Albumin Lipase Acetone, Qual COVID-19 (IS[facility]LE) COVID-19 Clin Com Assessment and Plan (1) Acute renal failure (ARF): Qualifiers: Acute renal failure type: with acute renal cortical necrosis Qualified Code(s): N17.1 - Acute kidney failure with acute cortical necrosis Status: Acute 64-year-old female with a past medical history of hypertension, hyperlipidemia, diabetes, coronary artery disease, CHF, ascending aortic dilation, anemia, sleep apnea, GERD presented to the hospital with a chief complaint abdominal pain/elevated fingerstick glucose. Diabetes with hyperglycemia: Patient has been started on insulins as outpatient. On presentation noted to have blood sugar in 600s. Improving with glargine and Humalog. Received IV fluids. Will continue Lantus 20 units and insulin sliding scale. Abdominal pain: Unclear etiology. Will obtain non con CT scan. Gastr oenterology consult for question EGD. ANGELY: Likely prerenal. Renal function improving with IV fluids. Avoid nephrotoxins. Anion gap acidosis: Likely in the setting of ANGELY/starvation ketosis. Gap improved with IV fluids. For all other chronic conditions, home medications will be continued Diet: Carbohydrate controlled diet DVT prophylaxis: SCD boots Code status: Full code
--- NOTE | 2020-07-27 22:46 | PC.NURSE ---
REPORT FROM ROBERT TREADWELL, CHRIS AT BEDSIDE GIVING PATIENT BICARB. PATIENT IS ALERT NO DISTRESS NOTED. SKIN IS P,D,W. MEDICATION REC COMPLETED WITH RECENTLY FILLED PRESCRIPTIONS ACCORDING TO THE PHARMACY. PATIENT UNSURE ABOUT ALL HOME MEDICATIONS.
[2020-07-27 23:01] VITALS: BP 106/62; PULSE 74; RESP 20; O2SAT 97
[2020-07-27] MEDS: 0.9 % Sodium Chloride Flush 3 ML SYRINGE IVFLUSH (23:45)
[2020-07-28 05:27] LABS: Glucose, Whole Blood 124 mg/dL (60-115)
[2020-07-28 07:08] LABS: MANUAL DIFF FLAG NO
[2020-07-28 07:12] LABS: Basophils Percent Auto 0.3 % (0-2); Eosinophils Absolute Auto 0.2 X10*3/uL (0.0-0.4); Hematocrit 28.1 % (37-47); Hemoglobin 9.2 g/dl (12.0-16.0); Imm Gran Abs Auto 0.02 X10*3/uL (0.00-0.03); Imm Gran Pct Auto 0.2 % (0.0-0.4); Lymphocytes Absolute Auto 3.7 X10*3/uL (1.2-4.9); Lymphocytes Percent Auto 43.4 % (20-40); Mean Corpuscular HGB Conc 32.7 g/dl (31.0-35.0); Mean Corpuscular Volume 88.6 fL (80-98); Mean Platelet Volume 11.3 fL (9.4-12.3); Monocytes Absolute Auto 0.7 X10*3/uL (0.1-1.2); Monocytes Percent Auto 7.8 % (2-11); Neutrophils Percent Auto 46.3 % (45-73); Platelet Count 203 X10*3/uL (160-400); Red Blood Count 3.17 X10*6/uL (4.20-5.50); Red Cell Distribution Width 12.2 % (11.0-16.0); White Blood Count 8.6 X10*3/uL (4.8-10.8)
[2020-07-28 07:26] LABS: Glucose, Whole Blood 148 mg/dL (60-115)
[2020-07-28 07:46] LABS: Anion Gap 16 (12-20); Blood Urea Nitrogen 17 mg/dL (9-16); Calcium 8.9 mg/dL (8.4-10.2); Carbon Dioxide 22 mmol/L (22-29); Chloride 107 mmol/L (96-108); Creatinine Clr Calc Pharmacy 41.7; Estimated Glomerular Filt Rate 47; Glucose Random 162 mg/dL (60-115); Potassium 4.1 mmol/L (3.3-5.1); Sodium 141 mmol/L (135-145)
[2020-07-28] MEDS: 0.9 % Sodium Chloride Flush 3 ML SYRINGE IVFLUSH (08:38)
[2020-07-28] MEDS: Folic Acid 1 MG TABLET PO (08:38)
[2020-07-28] MEDS: Aspirin Enteric Coated 81 MG TABLET.DR PO (08:38)
[2020-07-28 08:39] VITALS: BP 106/59; PULSE 89
[2020-07-28] MEDS: carvediloL 3.125 MG TABLET PO (08:39)
[2020-07-28] MEDS: lisinopriL 20 MG TABLET PO (08:39)
[2020-07-28 10:00] VITALS: BP 106/59; PULSE 89; RESP 16; O2SAT 98
--- NOTE | 2020-07-28 11:05 | P.DS_ITS ---
DS: Providers Provider Date of Service: 07/28/20 Date of admission: 07/27/20 20:48 Primary care physician: Myra Persaud DO Consults: 07/27/20 22:36 Consult to Gastroenterology Routine Consulting Provider: Aysha Clark Reason for consultation: Abd pain DS: Diagnosis Discharge Diagnosis (1) Acute renal failure (ARF): Status: Acute DS: Medications Discharge Medications Home Medications: Home Medications Medication Instructions Recorded Confirmed albuterol sulfate 2 puff INHALATION Q4-6H PRN 03/14/20 07/27/20 aspirin 81 mg PO DAILY 03/14/20 07/27/20 carvedilol 3.125 mg PO BID 03/14/20 07/27/20 ergocalciferol (vitamin D2) 1,250 mcg PO MO@09 03/14/20 07/28/20 [Vitamin D2] folic acid 1 mg PO DAILY 03/14/20 07/27/20 lisinopril 20 mg PO DAILY 03/14/20 07/27/20 metformin 500 mg PO BID 03/14/20 07/27/20 omeprazole 20 mg PO DAILY@1700 03/14/20 07/27/20 insulin glargine [Lantus U-100 8 unit SUBCUT DAILY 07/27/20 07/27/20 Insulin] atorvastatin 80 mg PO BEDTIME 07/28/20 07/28/20 calcium carbonate [Calcium Antacid] 1 tab PO BID 07/28/20 07/28/20 Previous Rx's Medication Instructions Recorded [id number] 1 cap PO TID 30 Days #90 cap 07/02/20 12,000-38,000-60,000 unit capsule,delayed rel DS: Summary Hospital Course Hospital Course: HPI: See H&P for details. 64-year-old female with diabetes hypertension who presented to the emergency room with abdominal pain as detailed in history of present illness a she was noted to have elevated blood sugar greater than 600, she has acute renal failure with creatinine of 2.04, elevated bicarb level of 17 and anion gap of 25 an elevated lipase level of 249 although record reviewed that she has chronically elevated a lipase level patient was a treated for acute DKA complicated by acute renal failure and mild pancreatitis. Hospital course: 1. DKA a treated with IV fluid insulin and DKA has resolved up presently bicarb level is 22 anion gap of 16 are within normal. She does not have any clinical symptoms of DKA. She will resume her usual home medication including insulin. And check with sugar level as recommended and follow diabetic diet. 2. Acute renal failure due to prerenal azotemia from or glucosuria, renal function has returned to normal at 1.16 at the present time. To drink plenty of fluid. 3. Mild elevation in the lipase record review that she has chronically elevated lipase presently she is not having any abdominal pain she has tolerated regular diet pancreatitis if mi has resolved and is encouraged to avoid fatty diet. A CT scan done on July 27 showed no acute finding in the abdomen including around the pancreas. Dispo: home Time Spent with Patient Time attestation: Total time spent providing and/or coordinating discharge serv ices: Discharge coordination time: Greater than 30 minutes Physical Exam Vital Signs: Vital Signs: Last Vital Signs Temp 98.1 F 07/27/20 21:58 Pulse 89 07/28/20 10:00 Resp 16 07/28/20 10:00 BP 106/59 L 07/28/20 10:00 Pulse Ox 98 07/28/20 10:00 Body Mass Index 25.4 Constitutional Awake and Alert, No apparent distress Neck Supple, No lymphadenopathy Cardiovascular RRR, No M/R/G, S1 S2, No S3 S4, No pedal edema Respiratory Lungs clear, No respiratory distress Gastrointestinal Non tender, Non-distended Skin No rash Neurological Alert & oriented x3 Psychological Appropriate affect DS: Data Data Completed and Pending Labs on day of discharge: Laboratory Results - last 24 hr 07/27/20 07/27/20 07/27/20 15:32 15:44 15:51 WBC 11.8 H RBC 3.59 L Hgb 10.4 L Hct 32.4 L MCV 90.3 MCH 29.0 MCHC 32.1 RDW 12.3 Plt Count 238 MPV 11.5 Immature Gran % (Auto) 0.3 Neut % (Auto) 51.6 Lymph % (Auto) 38.1 [place] % (Auto) 8.2 Eos % (Auto) 1.5 Baso % (Auto) 0.3 Lymph # (Auto) 4.5 [place] # (Auto) 1.0 Eos # (Auto) 0.2 Baso # (Auto) 0.0 Abs Immat Gran (auto) 0.03 Absolute Neuts (auto) 6.1 Absolute Nucleated RBC 0.000 Nucleated RBC % (auto) 0.0 VBG pH VBG pCO2 VBG pO2 VBG HCO3 VBG O2 Saturation VBG Base Excess Sodium Potassium Chloride Carbon Dioxide Anion Gap BUN Creatinine Estim Creat Clear Calc Estimated GFR POC Glucose > 600 H* 592 H* Random Glucose Calcium Total Bilirubin Direct Bilirubin AST ALT Alkaline Phosphatase Troponin I High Sens Total Protein Albumin Lipase Acetone, Qual COVID-19 (ISABELLE) COVID-19 [employer] 07/27/20 07/27/20 07/27/20 15:51 15:51 19:39 WBC RBC Hgb Hct MCV MCH MCHC RDW Plt Count MPV Immature Gran % (Auto) Neut % (Auto) Lymph % (Auto) [place] % (Auto) Eos % (Auto) Baso % (Auto) Lymph # (Auto) [place] # (Auto) Eos # (Auto) Baso # (Auto) Abs Immat Gran (auto) Absolute Neuts (auto) Absolute Nucleated RBC Nucleated RBC % (auto) VBG pH VBG pCO2 VBG pO2 VBG HCO3 VBG O2 Saturation VBG Base Excess Sodium 132 L Potassium 5.3 H Chloride 94 L Carbon Dioxide 18 L Anion Gap 25 H BUN 24 H Creatinine 2.22 H Estim Creat Clear Calc 21.8 Estimated GFR 22 POC Glucose 511 H* Random Glucose 651 H* Calcium 9.9 Total Bilirubin 0.6 Direct Bilirubin 0.3 AST 41 H ALT 32 H Alkaline Phosphatase 109 Troponin I High Sens 9.5 Total Protein 6.7 Albumin 3.9 Lipase 216 H Acetone, Qual Moderate H COVID-19 (ISABELLE) COVID-19 [employer] 07/27/20 07/27/20 07/27/20 20:18 20:58 21:00 WBC RBC Hgb Hct MCV MCH MCHC RDW Plt Count MPV Immature Gran % (Auto) Neut % (Auto) Lymph % (Auto) [place] % (Auto) Eos % (Auto) Baso % (Auto) Lymph # (Auto) [place] # (Auto) Eos # (Auto) Baso # (Auto) Abs Immat Gran (auto) Absolute Neuts (auto) Absolute Nucleated RBC Nucleated RBC % (auto) VBG pH 7.37 VBG pCO2 34 VBG pO2 50 VBG HCO3 20 L VBG O2 Saturation 80.0 VBG Base Excess -4.1 Sodium Potassium Chloride Carbon Dioxide Anion Gap BUN Creatinine Estim Creat Clear Calc Estimated GFR POC Glucose 449 H* Random Glucose Calcium Total Bilirubin Direct Bilirubin AST ALT Alkaline Phosphatase Troponin I High Sens Total Protein Albumin Lipase Acetone, Qual COVID-19 (ISABELLE) Negative COVID-19 [employer] Com See Note 07/27/20 07/28/20 07/28/20 21:00 05:06 06:53 WBC 8.6 RBC 3.17 L Hgb 9.2 L Hct 28.1 L MCV 88.6 MCH 29.0 MCHC 32.7 RDW 12.2 Plt Count 203 MPV 11.3 Immature Gran % (Auto) 0.2 Neut % (Auto) 46.3 Lymph % (Auto) 43.4 H [place] % (Auto) 7.8 Eos % (Auto) 2.0 Baso % (Auto) 0.3 Lymph # (Auto) 3.7 [place] # (Auto) 0.7 Eos # (Auto) 0.2 Baso # (Auto) 0.0 Abs Immat Gran (auto) 0.02 Absolute Neuts (auto) 4.0 Absolute Nucleated RBC 0.000 Nucleated RBC % (auto) 0.0 VBG pH VBG pCO2 VBG pO2 VBG HCO3 VBG O2 Saturation VBG Base Excess Sodium 136 Potassium 4.2 D Chloride 104 Carbon Dioxide 17 L Anion Gap 19 BUN 22 H Creatinine 1.76 H Estim Creat Clear Calc 27.5 Estimated GFR 29 POC Glucose 124 H Random Glucose 396 H* Calcium 8.7 D Total Bilirubin Direct Bilirubin AST ALT Alkaline Phosphatase Troponin I High Sens Total Protein Albumin Lipase Acetone, Qual COVID-19 (ISABELLE) COVID-[employer] Com 07/28/20 07/28/20 06:53 07:15 WBC RBC Hgb Hct MCV MCH MCHC RDW Plt Count MPV Immature Gran % (Auto) Neut % (Auto) Lymph % (Auto) [place] % (Auto) Eos % (Auto) Baso % (Auto) Lymph # (Auto) [place] # (Auto) Eos # (Auto) Baso # (Auto) Abs Immat Gran (auto) Absolute Neuts (auto) Absolute Nucleated RBC Nucleated RBC % (auto) VBG pH VBG pCO2 VBG pO2 VBG HCO3 VBG O2 Saturation VBG Base Excess Sodium 141 Potassium 4.1 Chloride 107 Carbon Dioxide 22 Anion Gap 16 BUN 17 H Creatinine 1.16 Estim Creat Clear Calc 41.7 Estimated GFR 47 POC Glucose 148 H Random Glucose 162 H D Calcium 8.9 Total Bilirubin Direct Bilirubin AST ALT Alkaline Phosphatase Troponin I High Sens Total Protein Albumin Lipase Acetone, Qual COVID-19 (IS[facility]LE) COVID-19 Clin Com Discharge Plan Discharge Anticipated Discharge Date/Time: 07/28/20 10:58 Patient Disposition: Home, Self-Care Discharge Diagnosis: DKA resolved, renal failure Referrals: Myra Persaud DO [Primary Care Provider] - 1 Week Discharge Medications: Continued aspirin 81 mg Tablet,Delayed Release (Dr/Ec) 81 mg PO DAILY RF: 0 omeprazole 20 mg Capsule,Delayed Release(Dr/Ec) 20 mg PO DAILY@1700 RF: 0 albuterol sulfate 90 mcg/actuation Hfa Aerosol Inhaler 2 puff INHALATION Q4-6H PRN (Reason: Shortness Of Breath Or Wheezing) RF: 0 metformin 500 mg Tablet 500 mg PO BID RF: 0 lisinopril 20 mg Tablet 20 mg PO DAILY RF: 0 carvedilol 3.125 mg Tablet 3.125 mg PO BID RF: 0 folic acid 1 mg Tablet 1 mg PO DAILY RF: 0 ergocalciferol (vitamin D2) [Vitamin D2] 1,250 mcg (50,000 unit) Capsule 1,250 mcg PO MO@09 RF: 0 Lantus U-100 Insulin 100 unit/mL solution 8 unit subcut DAILY RF: 0 atorvastatin 80 mg tablet 80 mg PO BEDTIME RF: 0 calcium carbonate [Calcium Antacid] 200 mg calcium (500 mg) tablet,chewable 1 tab PO BID RF: 0 Creon 12,000-38,000 -60,000 unit capsule,delayed release(DR/EC) 1 cap PO TID 30 Days Qty: 90 RF: 3 Discharge Orders: Discharge Order (Routine); Ordered 07/28/20 Ordered By: Cecil Gamez Diet: advance to usual diet Activity on Discharge: As tolerated Stand Alone Forms: Patient Portal Discharge page Care Plan Goals: Full recovery from DKA, pancreatitis. Health Concerns: Diabetes with DKA, recurring pancreatitis basin to have resolved. Plan of Treatment: Take medication as directed, avoid fatty food. Assessment: DKA that has resolved pancreatitis also clinically resolved.
--- NOTE | 2020-07-28 11:23 | PC.NURSE ---
pt daughter called. 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
--- NOTE | 2020-07-28 11:36 | MHC.CM.PN ---
pt speaks sing[place] hence this interview was conducted through patients daughter who lives c her. pt ambulates s an AD. she has requested to have [facility] provide nsg visits and a ref. for this has been made. 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 pt's daughter, gilda, will provide transportation at dc. dc plan is home c [facility] for nsg. cm to cont. to follow.
== END 2020-07-28 11:26 | disposition home health service (06) | DRG 420 ==
LOC: HO.ED 17:38 → HO.EDOVER 21:00 → HO.S3 07-28 10:25
PROVIDERS: Admitting Provider Hospitalist; Emergency Provider Internal Medicine; PCP Family Medicine; Visit Provider Internal Medicine
DX: E11.10 Type 2 diabetes mellitus with ketoacidosis without coma (principal); K85.80 Other acute pancreatitis without necrosis or infection; N17.9 Acute kidney failure, unspecified; E87.2 Acidosis; I10 Essential (primary) hypertension; E78.5 Hyperlipidemia, unspecified; Z20.822 Contact with and (suspected) exposure to COVID-19; Z79.4 Long term (current) use of insulin; Z79.82 Long term (current) use of aspirin; Z79.899 Other long term (current) drug therapy
CPT/HCPCS: 36415; 74176; 80048; 80076; 82009; 82947; 83690; 84484; 85025; 87635; 93005; 96372; 99285; 99291

== ENCOUNTER 2020-09-01 08:55 | Outpatient (REF) | payer MEDICAID, SELFPAY ==
--- NOTE | ~2020-09-01 | MM_ITS ---
EXAMINATION: MM SCREENING DIGITAL BREAST TOMOSYNTHESIS, BILATERAL CLINICAL INFORMATION: Screening. Asymptomatic. The lifetime risk of breast cancer based on the Tyrer-Cuzick Model is 4%. COMPARISON: Mammography: 04/02/2018, 02/25/2017, 02/18/2016 TECHNIQUE: Digital breast tomosynthesis is performed in both the craniocaudal and mediolateral oblique views along with computer-aided detection (CAD). Synthesized 2D images are generated from the tomosynthesis. FINDINGS: There are scattered areas of fibroglandular density (ACR BI-RADS breast composition Category b). There are no significant masses, abnormal calcifications, or other abnormalities. Parenchymal pattern is similar to prior studies. There is small oval nodule again noted anterior 9:00 left breast similar to 2017. No significant changes. MM/MM tomosynthesis screening BI IMPRESSION: No mammographic evidence of malignancy. ASSESSMENT: BI-RADS 2: Benign RECOMMENDATION: Routine annual mammography screening. This patient's information was entered into a reminder system with a target due date for their next mammogram.
== END 2020-09-01 08:56 | disposition home or self-care (01) ==
LOC: HO.MAMMO 08:55
PROVIDERS: Visit Provider Family Medicine
DX: Z12.31 Encounter for screening mammogram for malignant neoplasm of breast (principal)
CPT/HCPCS: 77063; 77067

== ENCOUNTER → 2020-11-08 10:18 | Outpatient (BNVA) | payer MEDICAID, SELFPAY | PROVIDERS: PCP Family Medicine; Visit Provider Internal Medicine Gastroenterology ==

== ENCOUNTER 2021-04-22 08:04 | Outpatient (REF) | payer MEDICAID, SELFPAY ==
--- NOTE | ~2021-04-22 | US_ITS ---
EXAMINATION: US ABDOMEN COMPLETE CLINICAL INFORMATION: Fatty liver. COMPARISON: CT abdomen and pelvis 07/27/2020. MRI abdomen 11/11/2019. Limited abdominal ultrasound 11/09/2019. Ultrasound abdomen 03/24/2017. TECHNIQUE: Real-time imaging of the abdominal viscera. FINDINGS: PANCREAS: The main pancreatic duct is dilated. There are multiple pancreatic calcifications including probable calcifications or stones within the main pancreatic duct. ABDOMINAL AORTA: The proximal, mid, and distal segments are normal in caliber. INFERIOR VENA CAVA: Visualized portions are normal. LIVER: The liver is normal in size. The liver contour is normal. Liver echotexture is slightly increased. No focal hepatic lesion. There may be mild intrahepatic biliary duct dilatation. GALLBLADDER: Surgically absent. COMMON BILE DUCT: Normal in caliber measuring 0.8 cm in diameter. This is decreased in size from 1.3 cm on October 1999 ultrasound exam. RIGHT KIDNEY: Normal. No hydronephrosis. No renal calculi or focal parenchymal lesions. The kidney measures 12.0 cm in maximum dimension. LEFT KIDNEY: Normal. No hydronephrosis. No renal calculi or focal parenchymal lesions. The kidney measures 11.7 cm in maximum dimension. SPLEEN: Normal. The spleen measures 7.8 cm in maximum dimension. FREE FLUID: None. US/US abdomen complete IMPRESSION: Slightly echogenic liver. Differential would include fatty infiltration and hepatocellular disease. There may be mild intrahepatic biliary duct dilatation. The common bile duct does not appear dilated and is decreased in size from prior exams. The main pancreatic duct is dilated and there are multiple calcifications in the pancreas, some of which may be within the main pancreatic duct. This is probably similar to most recent CT of the abdomen and pelvis June 2020.
== END 2021-04-22 08:05 | disposition home or self-care (01) ==
LOC: HO.US 08:04
PROVIDERS: PCP Family Medicine; Visit Provider Family Medicine
DX: K75.0 Abscess of liver (principal)
CPT/HCPCS: 76700

== ENCOUNTER 2021-06-18 09:36 | Outpatient (REF) | payer MEDICAID, SELFPAY ==
--- NOTE | ~2021-06-18 | XR_ITS ---
EXAMINATION: XR CHEST XR LUMBAR SPINE CLINICAL INFORMATION: SOB and right-sided lower back pain. COMPARISON: Chest 11/08/2019. TECHNIQUE: Chest 2 views. Lumbar spine 3 views. FINDINGS: CHEST: Both lungs are fairly well expanded and clear of acute process. The heart size and pulmonary vascularity is normal. No gross bony abnormality seen. LUMBAR SPINE: There is normal lumbar lordosis. The vertebral heights and alignment are normal. There is mild loss of L2-L3, L3-L4 disc heights. Rest of the disc heights are normal. No lytic or sclerotic process seen. The paravertebral soft tissues are normal. XR/XR lumbar spine 2-3V IMPRESSION: Unremarkable chest exam. Mild degenerative disc changes L2-L3 and L3-L4 disc levels.
--- NOTE | ~2021-06-18 | XR_ITS ---
EXAMINATION: XR CHEST XR LUMBAR SPINE CLINICAL INFORMATION: SOB and right-sided lower back pain. COMPARISON: Chest 11/08/2019. TECHNIQUE: Chest 2 views. Lumbar spine 3 views. FINDINGS: CHEST: Both lungs are fairly well expanded and clear of acute process. The heart size and pulmonary vascularity is normal. No gross bony abnormality seen. LUMBAR SPINE: There is normal lumbar lordosis. The vertebral heights and alignment are normal. There is mild loss of L2-L3, L3-L4 disc heights. Rest of the disc heights are normal. No lytic or sclerotic process seen. The paravertebral soft tissues are normal. XR/XR chest 2V IMPRESSION: Unremarkable chest exam. Mild degenerative disc changes L2-L3 and L3-L4 disc levels.
== END 2021-06-18 09:37 | disposition home or self-care (01) ==
LOC: HO.XRAY 09:36
PROVIDERS: PCP Family Medicine; Visit Provider Family Medicine
DX: M54.50 Low back pain, unspecified (principal); R63.4 Abnormal weight loss
CPT/HCPCS: 71046; 72100

== ENCOUNTER 2021-07-01 13:51 | Inpatient (IN) | payer MEDICAID, SELFPAY ==
--- NOTE | ~2021-07-01 | US_ITS ---
EXAMINATION: US ABDOMEN LIMITED CLINICAL INFORMATION: Elevated liver function tests. COMPARISON: None TECHNIQUE: Real-time imaging of the right upper quadrant abdominal viscera. FINDINGS: PANCREAS: Not well visualized due to bowel gas. The main pancreatic duct is dilated. There are multiple calcifications in the pancreas. This is similar to previous exams. LIVER: The liver is normal in size. The liver contour is normal. Parenchymal echogenicity is normal. No focal hepatic lesion. There is question of mild intrahepatic biliary duct dilatation seen. GALLBLADDER: Surgically removed COMMON BILE DUCT: 1 cm in diameter. This is similar to previous exams and may be normal postcholecystectomy. RIGHT KIDNEY: There is a 3 mm echogenic density with twinkle artifact in the upper pole questionable for a small stone.. No hydronephrosis. No parenchymal lesions. The kidney measures 11.5 cm in maximum dimension. FREE FLUID: None. US/US abdomen limited IMPRESSION: Question mild intrahepatic biliary duct dilatation. The common bile duct measures 1 cm which may be normal postcholecystectomy and is similar to previous exams. Limited visualization of the pancreas. Dilated main pancreatic duct in pancreatic calcifications similar to previous exams. Question small right renal stone.
[2021-07-01 14:10] VITALS: BP 117/56; PULSE 86; RESP 16; TEMP 36.8; O2SAT 100; BMI 27.1
--- NOTE | 2021-07-01 14:14 | ECG_ITS ---
Test Reason : ab normal labs Blood Pressure : / mmHG Vent. Rate : 082 BPM Atrial Rate : 082 BPM P-R Int : 144 ms QRS Dur : 074 ms QT Int : 350 ms P-R-T Axes : 036 -13 036 degrees QTc Int : 408 ms Normal sinus rhythm Normal ECG When compared with ECG of 27-JUL-2020 16:01, No significant change was found Referred By: Generic ED Physician Electronically Signed By:JOSIANE MCCLURE MD
--- NOTE | 2021-07-01 15:54 | ED.RECABL ---
HPI - Recheck/Abnormal Lab/Rx General Chief Complaint: Recheck/Abnormal Lab/Rx <VICTORIA Blank - Last Filed: 07/01/21 17:54> Stated Complaint: Abnormal labs <VICTORIA Blank Last Filed: 07/01/21 17:54> Time Seen by Provider: 07/01/21 15:52 <VICTORIA Blank - Last Filed: 07/01/21 17:54> Source: patient <VICTORIA Blank Last Filed: 07/01/21 17:54> Mode of arrival: ambulatory <VICTORIA Blank Last Filed: 07/01/21 17:54> Limitations: no limitations <VICTORIA Blank Last Filed: 07/01/21 17:54> History of Present Illness HPI narrative: 65 yo female presents to the ER for abnormal lab work up. She has a history of DM, HLD, CAD, pancreatitis, anemia, CHF, fatty liver, JUAN DANIEL. She states on Thursday she had lab workup by her PCP and was called today with abnormal results, told to come to the ER because it was an emergency. She thinks they told her she had a high potassium, her kidneys were not working correctly, blood counts were low and she had a urine infection. She has no physical complaints including no chest pain, N/V/D, abdominal pain, SOB, dysuria, frequency or urgency, fever, chills, myalgias or cramping. She denies melena or BRBPR. She has been compliant with all of her medications. She denies being on anticoagulation. <VICTORIA Blank - Last Filed: 07/01/21 17:54> MD complaint: abnormal lab <VICTORIA Blank Last Filed: 07/01/21 17:54> Initial visit (ago): day(s) (3) <VICTORIA Blank Last Filed: 07/01/21 17:54> Symptoms since prior visit: no new symptoms <VICTORIA Blank Last Filed: 07/01/21 17:54> Associated symptoms: none <VICTORIA Blank Last Filed: 07/01/21 17:54> Related Data Home Medications: Home Medications Medication Instructions Recorded Confirmed albuterol sulfate 90 mcg/actuation 2 puff INHALATION Q4-6H PRN 03/14/20 07/01/21 aerosol inhaler aspirin 81 mg tablet,delayed 81 mg PO DAILY 03/14/20 07/01/21 release carvedilol 3.125 mg tablet 3.125 mg PO BID 03/14/20 07/01/21 ergocalciferol (vitamin D2) 1,250 1,250 mcg PO MO 03/14/20 07/01/21 mcg (50,000 unit) capsule (Vitamin D2) folic acid 1 mg tablet 1 mg PO DAILY 03/14/20 07/01/21 lisinopril 20 mg tablet 20 mg PO DAILY 03/14/20 07/01/21 metformin 500 mg tablet 1,000 mg PO BID 03/14/20 07/01/21 insulin glargine 100 unit/mL 20 unit SUBCUT BEDTIME 07/27/20 07/01/21 subcutaneous solution (Lantus U-100 Insulin) atorvastatin 80 mg tablet 80 mg PO BEDTIME 07/28/20 07/01/21 calcium carbonate 200 mg calcium 1 tab PO BID 07/28/20 07/01/21 (500 mg) chewable tablet (Calcium Antacid) acetaminophen 650 mg 1 tab PO Q8H PRN 07/01/21 07/01/21 tablet,extended release baclofen 10 mg tablet 1 tab PO TID PRN 07/01/21 07/01/21 fluticasone propionate 110 2 puff INHALATION BID 07/01/21 07/01/21 mcg/actuation HFA aerosol inhaler (Flovent HFA) fluticasone propionate 50 2 spray INTRANASAL DAILY 07/01/21 07/01/21 mcg/actuation nasal spray,suspension gabapentin 100 mg capsule 1 cap PO BEDTIME 07/01/21 07/01/21 insulin lispro 100 unit/mL 6 unit SUBCUT DAILY@0730 07/01/21 07/01/21 subcutaneous pen (Humalog KwikPen (U-100) Insulin) insulin lispro 100 unit/mL 12 unit SUBCUT DAILY@1630 07/01/21 07/01/21 subcutaneous pen (Humalog KwikPen (U-100) Insulin) ketotifen fumarate 0.025 % (0.035 1 drp OPHTHALMIC (EYE) BID 07/01/21 07/01/21 %) eye drops loratadine 10 mg tablet 10 mg PO DAILY 07/01/21 07/01/21 pantoprazole 40 mg tablet,delayed 1 tab PO BID 07/01/21 07/01/21 release repaglinide 1 mg tablet 1 tab PO TID 07/01/21 07/01/21 Previous Rx's Medication Instructions Recorded [id number]-[id number]-[id number] 1 cap PO TID 30 Days #90 cap 05/03/21 24,000-76,000-120,000 unit capsule,delayed rel (Creon) <VICTORIA Blank - Last Filed: 07/01/21 17:54> Allergies/Adverse Reactions: Allergies Allergy/AdvReac Type Severity Reaction Status Date / Time simvastatin [SIMVASTATIN] AdvReac Unknown Unknown Verified 11/08/20 10:18 <VICTORIA Blank - Last Filed: 07/01/21 17:54> Review of Systems Review of Systems: Constitutional: No Fever, No Chills ENT/Mouth: No sore throat, No Rhinorrhea, No Swallowing Difficulty Eyes: No Eye Pain, No Swelling, No Redness Cardiovascular: No Chest Pain, No SOB, No Orthopnea, No Edema Respiratory: No Cough, No Sputum, No Wheezing, No dyspnea Gastrointestinal: No Nausea, No Vomiting, No Diarrhea, No abdominal Pain, No Hematochezia, No Melena Genitourinary: No Dysuria, No Urinary Frequency, No Hematuria Musculoskeletal: No joint pain, No Myalgias Skin: No Skin Lesions, No rash Neuro: No Weakness, No Numbness, No Dizziness, No Headache Psych: No Anxiety/Panic, No Depression Heme/Lymph: No Bruising, No Lymphadenopathy Endocrine: No Polyuria, No Polydipsia <VICTORIA Blank - Last Filed: 07/01/21 17:54> [facility] Past Medical History Medical History: Medical History Anemia Ascending aorta dilatation Asthma CAD (coronary artery disease) CHF (congestive heart failure) Elevated cholesterol Fatty liver GERD (gastroesophageal reflux disease) History of alcohol dependence HTN (hypertension) Hx of acute pancreatitis Hx of acute renal failure Hx of diabetes with ketoacidosis Hx of non-ST elevation myocardial infarction (NSTEMI) IDDM (insulin dependent diabetes mellitus) Non-ischemic cardiomyopathy Sleep apnea <VICTORIA Blank - Last Filed: 07/01/21 17:54> Surgical History: Surgical History History of cardiac cath History of esophagogastroduodenoscopy (EGD) History of partial hysterectomy Hx of cholecystectomy Hx of colonoscopy Hx of lithotripsy <VICTORIA Blank - Last Filed: 07/01/21 17:54> Family History Family History: Family History Father History of heart attack Mother No problems noted. <VICTORIA Blank - Last Filed: 07/01/21 17:54> Social History Social History: Social History Household Members: Family Alcohol intake: never Advance Directives: No Advance Directives Information Provided: No service: No Current occupational status: retired <VICTORIA Blank - Last Filed: 07/01/21 17:54> Physical Exam Vital Signs: Vital Signs: Last Vital Signs Temp 98.3 F 07/01/21 17:02 Pulse 76 07/01/21 20:24 Resp 25 H 07/01/21 20:24 BP 117/64 07/01/21 17:02 Pulse Ox 100 07/01/21 19:50 BMI result Body Mass Index 27.1 <VICTORIA Blank - Last Filed: 07/01/21 17:54> Vital Signs: Last Vital Signs Temp 98.3 F 07/01/21 17:02 Pulse 76 07/01/21 20:24 Resp 25 H 07/01/21 20:24 BP 117/64 07/01/21 17:02 Pulse Ox 100 07/01/21 19:50 BMI result Body Mass Index 27.1 <VICTORIA Kwan - Last Filed: 07/01/21 20:38> Appearance: Alert. Oriented X3. No acute distress. Eyes: Pupils equal, round and reactive to light. ENT: Pharynx normal. Neck: Normal inspection. Neck supple. CVS: Normal heart rate and rhythm. Pulses normal. Respiratory: No respiratory distress. Breath sounds with trace end expiratory wheeze in right base. Speaks in complete sentences. Abdomen: Soft and nontender. +BS x4 Skin: Skin warm and dry. Normal skin color. Normal skin turgor. No rashes. Extremities: No lower extremity edema. Neuro: Oriented X 3. No motor deficit. No sensory deficit. <VICTORIA Blank - Last Filed: 07/01/21 17:54> Course Course Course Narrative: 65-year-old [place]ic-speaking female with a history of diabetes, HTN, HLD, pancreatitis, CHF, fatty liver, JUAN DANIEL with history of DKA and history of acute renal failure who presents to the ER with abnormal lab workup-possible hyperkalemia, ANGELY and UTI. She has no physical complaints and appears well on examination. Denies signs or symptoms of bleeding. Will get repeat labs and urinalysis now. Signed out to night provider who will follow up results and determine dispo. <VICTORIA Blank - Last Filed: 07/01/21 17:54> Reevaluation(s) Reevaluation #1: - labs reviewed patient's H&H at 7.4/24.3 she has a history of baseline anemia per Andreina bucio although I am unsure if this is a new drop. Although patient denies any rectal bleeding/black stools or any vomiting any blood. - potassium 5.8. Therefore will give 30 g of Kayexalate 1 hour long breathing treatment. - BUN creatinine and 41/1.97 the last labs we have on 07/28/2020 her BUN and creatinine were 17/1.16 therefore I am unsure what her baseline is although going off of the patient's last labs she has ANGELY. - it appears that the patient also has UTI. Therefore will obtain blood cultures and lactic - provide a L of IV fluids and IV antibiotics for UTI and admit. Discussing this case with <VICTORIA Kwan - Last Filed: 07/01/21 20:38> Time: 19:37 <VICTORIA Kwan - Last Filed: 07/01/21 20:38> MDM - Recheck/Abnormal Lab/Rx Medical Records Attestation: I reviewed the patient's medical records. <VICTORIA Blank - Last Filed: 07/01/21 17:54> Lab Data Attestation: I reviewed the patient's lab results. <VICTORIA Blank - Last Filed: 07/01/21 17:54> I reviewed the patient's lab results. <VICTORIA Kwan - Last Filed: 07/01/21 20:38> Result diagrams: : 07/01/21 18:17 07/01/21 18:17 <VICTORIA Blank - Last Filed: 07/01/21 17:54> Labs: Lab Results 07/01/21 07/01/21 07/01/21 Range/Units 17:01 18:17 18:17 WBC 8.6 (4.8-10.8) X10*3/uL RBC 2.49 L (4.20-5.50) X10*6/uL Hgb 7.4 L (12.0-16.0) g/dl Hct 24.3 L (37.0-47.0) % MCV 97.6 (80.0-98.0) fL MCH 29.7 (27.0-33.0) pg MCHC 30.5 L (31.0-35.0) g/dl RDW 13.2 (11.0-16.0) % Plt Count 171 (160-400) X10*3/uL MPV 10.7 (9.4-12.3) fL Immature Gran % (Auto) 0.7 H (0.0-0.4) % Neut % (Auto) 47.5 (45-73) % Lymph % (Auto) 41.7 H (20-40) % [place] % (Auto) 7.0 (2-11) % Eos % (Auto) 2.9 (0-4) % Baso % (Auto) 0.2 (0-2) % Lymph # (Auto) 3.6 (1.2-4.9) X10*3/uL [place] # (Auto) 0.6 (0.1-1.2) X10*3/uL Eos # (Auto) 0.3 (0.0-0.4) X10*3/uL Baso # (Auto) 0.0 (0.0-0.2) X10*3/uL Abs Immat Gran (auto) 0.06 H (0.00-0.03) X10*3/uL Absolute Neuts (auto) 4.1 (2.0-8.3) x10*3/uL Absolute Nucleated RBC 0.000 (0.0-0.012) X10*3/uL Nucleated RBC % (auto) 0.0 (0.0-0.2) /100WBC Sodium 140 (135-145) mmol/L Potassium 5.8 H D (3.3-5.1) mmol/L Chloride 118 H (96-108) mmol/L Carbon Dioxide 15 L (22-29) mmol/L Anion Gap 13 (12-20) BUN 41 H (9-16) mg/dL Creatinine 1.97 H (0.5-1.4) mg/dL Estim Creat Clear Calc 24.9 Estimated GFR 26 Random Glucose 130 H (60-115) mg/dL Calcium 9.3 (8.4-10.2) mg/dL Total Bilirubin 0.3 (0.0-1.0) mg/dL AST 98 H (5-31) U/L ALT 114 H (0-31) U/L Alkaline Phosphatase 119 H (39-117) U/L Total Protein 6.3 L (6.5-8.0) g/dL Albumin 3.7 (3.5-5.0) g/dL Urine Color YELLOW Urine Appearance HAZY Urine pH 5.5 (5.0-8.0) Ur Specific [place] 1.020 (1.005-1.025) Urine Protein NEG (NEG-TRACE) MG/DL Urine Glucose (UA) NEG (NEG) MG/DL Urine Ketones NEG (NEG) MG/DL Urine Blood 1+ H (NEG) Urine Nitrite NEG (NEG) Ur Leukocyte Esterase 1+ H (NEG) Urine RBC 1-4 (0) /HPF Urine WBC 15-29 H (0-4) /HPF Ur Squamous Epith Cells 2+ /LPF Urine Bacteria 3+ /LPF <VICTORIA Blank - Last Filed: 07/01/21 17:54> Lab Results 07/01/21 07/01/21 07/01/21 Range/Units 17:01 18:17 18:17 WBC 8.6 (4.8-10.8) X10*3/uL RBC 2.49 L (4.20-5.50) X10*6/uL Hgb 7.4 L (12.0-16.0) g/dl Hct 24.3 L (37.0-47.0) % MCV 97.6 (80.0-98.0) fL MCH 29.7 (27.0-33.0) pg MCHC 30.5 L (31.0-35.0) g/dl RDW 13.2 (11.0-16.0) % Plt Count 171 (160-400) X10*3/uL MPV 10.7 (9.4-12.3) fL Immature Gran % (Auto) 0.7 H (0.0-0.4) % Neut % (Auto) 47.5 (45-73) % Lymph % (Auto) 41.7 H (20-40) % [place] % (Auto) 7.0 (2-11) % Eos % (Auto) 2.9 (0-4) % Baso % (Auto) 0.2 (0-2) % Lymph # (Auto) 3.6 (1.2-4.9) X10*3/uL [place] # (Auto) 0.6 (0.1-1.2) X10*3/uL Eos # (Auto) 0.3 (0.0-0.4) X10*3/uL Baso # (Auto) 0.0 (0.0-0.2) X10*3/uL Abs Immat Gran (auto) 0.06 H (0.00-0.03) X10*3/uL Absolute Neuts (auto) 4.1 (2.0-8.3) x10*3/uL Absolute Nucleated RBC 0.000 (0.0-0.012) X10*3/uL Nucleated RBC % (auto) 0.0 (0.0-0.2) /100WBC Sodium 140 (135-145) mmol/L Potassium 5.8 H D (3.3-5.1) mmol/L Chloride 118 H (96-108) mmol/L Carbon Dioxide 15 L (22-29) mmol/L Anion Gap 13 (12-20) BUN 41 H (9-16) mg/dL Creatinine 1.97 H (0.5-1.4) mg/dL Estim Creat Clear Calc 24.9 Estimated GFR 26 Random Glucose 130 H (60-115) mg/dL Calcium 9.3 (8.4-10.2) mg/dL Total Bilirubin 0.3 (0.0-1.0) mg/dL AST 98 H (5-31) U/L ALT 114 H (0-31) U/L Alkaline Phosphatase 119 H (39-117) U/L Total Protein 6.3 L (6.5-8.0) g/dL Albumin 3.7 (3.5-5.0) g/dL Urine Color YELLOW Urine Appearance HAZY Urine pH 5.5 (5.0-8.0) Ur Specific [place] 1.020 (1.005-1.025) Urine Protein NEG (NEG-TRACE) MG/DL Urine Glucose (UA) NEG (NEG) MG/DL Urine Ketones NEG (NEG) MG/DL Urine Blood 1+ H (NEG) Urine Nitrite NEG (NEG) Ur Leukocyte Esterase 1+ H (NEG) Urine RBC 1-4 (0) /HPF Urine WBC 15-29 H (0-4) /HPF Ur Squamous Epith Cells 2+ /LPF Urine Bacteria 3+ /LPF <VICTORIA Kwan - Last Filed: 07/01/21 20:38> ECG Data Attestation: I personally reviewed and interpreted this ECG as follows: <VICTORIA Blank - Last Filed: 07/01/21 17:54> ECG interpretation date: 07/01/21 <VICTORIA Blank - Last Filed: 07/01/21 17:54> ECG interpretation time: 17:42 <VICTORIA Blank - Last Filed: 07/01/21 17:54> Prior ECG tracings: available for review <VICTORIA Blank - Last Filed: 07/01/21 17:54> Interpretation: normal sinus rhythm, HR 82 bpm, no ST segment elevations or depressions, No peaked T waves, no changes from prior <VICTORIA Blank - Last Filed: 07/01/21 17:54> Critical Care Time Critical Care Time Critical Care Time: Yes <VICTORIA Kwan Last Filed: 07/01/21 20:38> Total Critical Care Time: 60 <VICTORIA Kwan Last Filed: 07/01/21 20:38> Attestation: I personally attest to this time spent taking care of the patient <VICTORIA Kwan - Last Filed: 07/01/21 20:38> Discharge Plan Discharge Clinical Impression: Abnormal laboratory test, Anemia, ANGELY (acute kidney injury), Acute hyperkalemia, UTI (urinary tract infection) <VICTORIA Blank - Last Filed: 07/01/21 17:54> Patient Disposition: Admitted As Inpatient <VICTORIA Blank - Last Filed: 07/01/21 17:54>
[2021-07-01 17:02] VITALS: BP 117/64; PULSE 73; RESP 16; TEMP 36.8; O2SAT 100
[2021-07-01 17:21] LABS: Appearance Urine HAZY; Color Urine YELLOW; Glucose Urine UA NEG (NEG); Leukocyte Esterase Urine 1+ (NEG); Nitrite Urine NEG (NEG); PH 5.5 (5.0-8.0); UACC Culture Trigger YES; Urine Blood 1+ (NEG); Urine Ketones NEG (NEG); Urine Protein NEG (NEG-TRACE)
[2021-07-01 18:01] LABS: Bacteria Urine 3+ /LPF; Squamous Epithelial Cell Urine 2+ /LPF
--- NOTE | 2021-07-01 18:10 | PHA.MEDREC ---
Pharmacy Consult ? Medication Reconciliation Pharmacy has completed the medication reconciliation.
[2021-07-01] MEDS: 0.9 % Sodium Chloride 1,000 ML 999 ML IVCONT ×2 (18:18→20:39)
[2021-07-01 18:22] LABS: MANUAL DIFF FLAG NO
[2021-07-01 18:42] LABS: Basophils Percent Auto 0.2 % (0-2); Eosinophils Absolute Auto 0.3 X10*3/uL (0.0-0.4); Eosinophils Percent Auto 2.9 % (0-4); Hematocrit 24.3 % (37.0-47.0); Hemoglobin 7.4 g/dl (12.0-16.0); Imm Gran Abs Auto 0.06 X10*3/uL (0.00-0.03); Imm Gran Pct Auto 0.7 % (0.0-0.4); Lymphocytes Absolute Auto 3.6 X10*3/uL (1.2-4.9); Lymphocytes Percent Auto 41.7 % (20-40); Mean Corpuscular HGB Conc 30.5 g/dl (31.0-35.0); Mean Corpuscular Hemoglobin 29.7 pg (27.0-33.0); Mean Corpuscular Volume 97.6 fL (80.0-98.0); Mean Platelet Volume 10.7 fL (9.4-12.3); Monocytes Absolute Auto 0.6 X10*3/uL (0.1-1.2); Neutrophils Absolute Auto 4.1 x10*3/uL (2.0-8.3); Neutrophils Percent Auto 47.5 % (45-73); Platelet Count 171 X10*3/uL (160-400); Red Blood Count 2.49 X10*6/uL (4.20-5.50); Red Cell Distribution Width 13.2 % (11.0-16.0); White Blood Count 8.6 X10*3/uL (4.8-10.8)
[2021-07-01 18:50] LABS: Alanine Aminotransferase 114 U/L (0-31); Albumin Level 3.7 g/dL (3.5-5.0); Alkaline Phosphatase 119 U/L (39-117); Anion Gap 13 (12-20); Aspartate Amino Transferase 98 U/L (5-31); Bilirubin Total 0.3 mg/dL (0.0-1.0); Blood Urea Nitrogen 41 mg/dL (9-16); Calcium 9.3 mg/dL (8.4-10.2); Carbon Dioxide 15 mmol/L (22-29); Chloride 118 mmol/L (96-108); Creatinine Clr Calc Pharmacy 24.9; Estimated Glomerular Filt Rate 26; Glucose Random 130 mg/dL (60-115); Potassium 5.8 mmol/L (3.3-5.1); Sodium 140 mmol/L (135-145); Total Protein 6.3 g/dL (6.5-8.0)
[2021-07-01 19:50] VITALS: PULSE 78; O2SAT 100
[2021-07-01] MEDS: cefTRIAXone sodium 2 GM in 0.9 % Sodium Chloride 50 ML IV (19:51)
[2021-07-01] MEDS: Sodium Polystyrene Sulfon/Sorb 15 GM/60 ML ORAL.SUSP 30 GM PO (19:51)
[2021-07-01 20:24] VITALS: PULSE 76; RESP 25; O2SAT 100
[2021-07-01] MEDS: Albuterol Sulfate (0.083%) 2.5 MG/3 ML VIAL.NEB 10 MG INHALE (20:24)
[2021-07-01 20:39] VITALS: PULSE 64; RESP 20; O2SAT 100
[2021-07-01 22:30] VITALS: BP 129/63; PULSE 79; RESP 21; O2SAT 100
--- NOTE | 2021-07-01 22:44 | PM.IMHP ---
History of Present Illness Date of Service: 07/01/21 Chief Complaint: abnormal labs Slovak-speaking only, history is obtained with the help of staff interpreter this is a 65-year-old female with past medical history of chronic anemia, history of asthma, CAD, CHF, hyperlipidemia, GERD, hypertension, CKD, diabetes, who presents to the hospital with findings of abnormal labs. Patient reports that she did routine labs for her PCP due to weight loss for the past 1 year and was found to be anemic and have high potassium as well as abnormal kidney function. Patient reports that she has been very depressed due to the of her and living situation. She lives with her daughter and has been treated poorly by her son-in-law and therefore has not been eating or drinking well due to this depression and treatment. She reports chronic right leg pain that is been going on for 5 months otherwise denies any chest pain, no shortness of breath, no abdominal pain nausea or vomiting, no diarrhea constipation, She reports urinary frequency, no dysuria or urgency, and no lower extremity edema. No headache or change in vision. No dizziness. Patient does denies any melena, and no hematemesis hematochezia or hemoptysis. on arrival to the ED vitals was found to be significant for a slight tachypnea with the respiratory rate of 25 otherwise no significant abnormal findings Labs are significant for hemoglobin of 7.4, hematocrit 24.3, baseline around 9-10, sodium of 140, potassium of 5.8, creatinine of 1.97 with a baseline in July of 1.16, AST of 98, ALT of 114, alk-phos of 119, UA positive for leukocyte Estrace and WBC. EKG shows normal sinus rhythm with no peaked T-waves, given FORREST on CKD, hyperkalemia, as well as anemia I anticipate a medically necessary 2 night stay for this patient for further management and monitoring. Review of Systems Review of Systems: Yes all other systems are reviewed and are negative [facility] Medical History Anemia Ascending aorta dilatation Asthma CAD (coronary artery disease) CHF (congestive heart failure) Elevated cholesterol Fatty liver GERD (gastroesophageal reflux disease) History of alcohol dependence HTN (hypertension) Hx of acute pancreatitis Hx of acute renal failure Hx of diabetes with ketoacidosis Hx of non-ST elevation myocardial infarction (NSTEMI) IDDM (insulin dependent diabetes mellitus) Non-ischemic cardiomyopathy Sleep apnea Family History Father History of heart attack Mother No problems noted. Surgical History History of cardiac cath History of esophagogastroduodenoscopy (EGD) History of partial hysterectomy Hx of cholecystectomy Hx of colonoscopy Hx of lithotripsy Social History Household Members: Family Alcohol intake: never Advance Directives: No Advance Directives Information Provided: No service: No Current occupational status: retired Meds Allergies Allergy/AdvReac Type Severity Reaction Status Date / Time simvastatin [SIMVASTATIN] AdvReac Unknown Unknown Verified 11/08/20 10:18 Active Medications: Current Medications Acetaminophen (Acetaminophen 325 Mg Tablet) 650 mg PO Q6H PRN PRN Reason: Pain, Mild (Pain Scale 1-3) Docusate Sodium (Docusate Sodium 100 Mg Capsule) 100 mg PO DAILY PRN PRN Reason: Constipation Heparin Sodium (Porcine) (Heparin Sodium,Porcine 5,000 Unit/Ml Vial) 5,000 unit SUBCUT Q12H DERIC Lactated Ringer's (Lr) 1,000 mls @ 100 mls/hr IVCONT .Q10H DERIC Ondansetron HCl (Ondansetron Hcl 4 Mg/2 Ml Vial) 4 mg IVPUSH Q8H PRN PRN Reason: Nausea and Vomiting Sodium Chloride (0.9 % Sodium Chloride Flush 3 Ml Syringe) 3 ml IVFLUSH QSHIFT [facility] Home Medications Medication Instructions Recorded Confirmed Last Taken Type albuterol sulfate 90 mcg/actuation 2 puff INHALATION Q4-6H PRN 03/14/20 07/01/21 Unknown History aerosol inhaler aspirin 81 mg tablet,delayed 81 mg PO DAILY 03/14/20 07/01/21 07/01/21 History release carvedilol 3.125 mg tablet 3.125 mg PO BID 03/14/20 07/01/21 07/01/21 History ergocalciferol (vitamin D2) 1,250 1,250 mcg PO MO 03/14/20 07/01/21 Unknown History mcg (50,000 unit) capsule (Vitamin D2) folic acid 1 mg tablet 1 mg PO DAILY 03/14/20 07/01/21 07/01/21 History lisinopril 20 mg tablet 20 mg PO DAILY 03/14/20 07/01/21 07/01/21 History metformin 500 mg tablet 1,000 mg PO BID 03/14/20 07/01/21 07/01/21 History insulin glargine 100 unit/mL 20 unit SUBCUT BEDTIME 07/27/20 07/01/21 06/30/21 History subcutaneous solution (Lantus U-100 Insulin) atorvastatin 80 mg tablet 80 mg PO BEDTIME 07/28/20 07/01/21 06/30/21 History calcium carbonate 200 mg calcium 1 tab PO BID 07/28/20 07/01/21 07/01/21 History (500 mg) chewable tablet (Calcium Antacid) acetaminophen 650 mg 1 tab PO Q8H PRN 07/01/21 07/01/21 Unknown History tablet,extended release baclofen 10 mg tablet 1 tab PO TID PRN 07/01/21 07/01/21 Unknown History fluticasone propionate 110 2 puff INHALATION BID 07/01/21 07/01/21 Unknown History mcg/actuation HFA aerosol inhaler (Flovent HFA) fluticasone propionate 50 2 spray INTRANASAL DAILY 07/01/21 07/01/21 Unknown History mcg/actuation nasal spray,suspension gabapentin 100 mg capsule 1 cap PO BEDTIME 07/01/21 07/01/21 06/30/21 History insulin lispro 100 unit/mL 6 unit SUBCUT DAILY@0730 07/01/21 07/01/21 06/30/21 History subcutaneous pen (Humalog KwikPen (U-100) Insulin) insulin lispro 100 unit/mL 12 unit SUBCUT DAILY@1630 07/01/21 07/01/21 06/30/21 History subcutaneous pen (Humalog KwikPen (U-100) Insulin) ketotifen fumarate 0.025 % (0.035 1 drp OPHTHALMIC (EYE) BID 07/01/21 07/01/21 06/30/21 History %) eye drops loratadine 10 mg tablet 10 mg PO DAILY 07/01/21 07/01/21 07/01/21 History pantoprazole 40 mg tablet,delayed 1 tab PO BID 07/01/21 07/01/2122 History release repaglinide 1 mg tablet 1 tab PO TID 07/01/21 07/01/21 07/01/21 History Physical Exam Vital Signs and Narrative: Vital Signs: Last Vital Signs Temp 98.3 F 07/01/21 17:02 Pulse 79 07/01/21 22:30 Resp 21 H 07/01/21 22:30 BP 129/63 07/01/21 22:30 Pulse Ox 100 07/01/21 22:30 BMI result Body Mass Index 27.1 Const: General: cooperative and no acute distress Orientation/consciousness: patient oriented x3 Eyes: General: appearance normal, both eyes and all related structures Pupils: Equal, round and reactive pupils present Resp: Effort & Inspection: normal respiratory effort Auscultation: clear to auscultation bilaterally Cardio: Rate: regular rate Rhythm: regular rhythm GI: Palpation (GI): Soft to palpation Auscultation: normal bowel sounds Skin: General skin exam: no rashes or lesions noted Neuro: General: patient oriented x3 Cranial nerves: Yes Equal, round and reactive pupils present Cognition (Neuro): normal cognition Extrem: General: Yes normal to inspection and Yes no pedal edema Results Labs CBC and Chem 7: 07/01/21 18:17 07/01/21 23:17 Labs: Laboratory Results - last 24 hr 07/01/21 07/01/21 07/01/21 17:01 18:17 18:17 MCV 97.6 MCH 29.7 MCHC 30.5 L RDW 13.2 Plt Count 171 MPV 10.7 Immature Gran % (Auto) 0.7 H Neut % (Auto) 47.5 Lymph % (Auto) 41.7 H [place] % (Auto) 7.0 Eos % (Auto) 2.9 Baso % (Auto) 0.2 Lymph # (Auto) 3.6 [place] # (Auto) 0.6 Eos # (Auto) 0.3 Baso # (Auto) 0.0 Abs Immat Gran (auto) 0.06 H Absolute Neuts (auto) 4.1 Absolute Nucleated RBC 0.000 Nucleated RBC % (auto) 0.0 Anion Gap 13 Estim Creat Clear Calc 24.9 Estimated GFR 26 Random Glucose 130 H Calcium 9.3 Total Bilirubin 0.3 AST 98 H ALT 114 H Alkaline Phosphatase 119 H Total Protein 6.3 L Albumin 3.7 Urine Color YELLOW Urine Appearance HAZY Urine pH 5.5 Ur Specific [place] 1.020 Urine Protein NEG Urine Glucose (UA) NEG Urine Ketones NEG Urine Blood 1+ H Urine Nitrite NEG Ur Leukocyte Esterase 1+ H Urine RBC 1-4 Urine WBC 15-29 H Ur Squamous Epith Cells 2+ Urine Bacteria 3+ Assessment and Plan (1) Abnormal laboratory test: Status: Acute (2) Normocytic anemia: Status: Acute (3) Acute kidney injury superimposed on CKD: Status: Acute (4) Acute hyperkalemia: Status: Acute (5) UTI (urinary tract infection): Status: Acute (6) Depression: Status: Acute Plan 65-year-old female with past medical history of CKD, diabetes, hypertension, chronic anemia, among others who presents to the hospital with complaints of abnormal labs found to have FORREST, hyperkalemia, as well as acute on chronic anemia # normocytic anemia - acute on chronic - evidence of GI bleed - history of anemia the past - denies any melena, no hematochezia - will obtain ferritin, B12, folic acid - stool occult - follow CBC # Forrest and CKD - likely secondary to dehydration as well as in the setting of UTI - will treat with IV fluids - follow BMP # hyperkalemia - likely in the setting of FORREST - no EKG changes - received Kayexalate - follow BMP - admit to telemetry # UTI - has frequency - UA positive - no treat with IV antibiotics - follow cultures # depression - patient admits to depression - no homicidal or suicidal ideation - will need follow-up outpatient with Psychiatry # diabetes - continue home insulin - hold oral antihyperglycemics - will add diabetic diet as well as low-dose sliding scale insulin # hypertension - stable - continue antihypertensives # hyperlipidemia - continue statin DVT prophylaxis: Heparin subQ as mentioned above given the FORREST, hyperkalemia, as well as acute on chronic anemia patient will need a medically necessary admission for further treatment, evaluation, and monitoring Quality Stroke Does the patient have a stroke diagnosis?: No VTE Prior VTE?: No VTE Risk Level:: Medical - moderate - high VTE Device Contraindication: Treatment Not Indicated VTE Drug Contraindication: N/A - Med Ordered
[2021-07-01 22:50] LABS: Lactic Acid 1.8 mmol/L (0.5-2.0)
[2021-07-01 23:59] LABS: Anion Gap 11 (12-20); Blood Urea Nitrogen 37 mg/dL (9-16); Calcium 9.2 mg/dL (8.4-10.2); Carbon Dioxide 16 mmol/L (22-29); Chloride 123 mmol/L (96-108); Creatinine Clr Calc Pharmacy 26.1; Estimated Glomerular Filt Rate 27; Glucose Random 126 mg/dL (60-115); Potassium 5.3 mmol/L (3.3-5.1); Sodium 145 mmol/L (135-145)
[2021-07-02 00:11] LABS: Ferritin 802 ng/mL (10-250)
[2021-07-02 00:14] LABS: OBS Int Ctl Valid YES; OBS1 NEGATIVE (NEGATIVE)
[2021-07-02] MEDS: Lactated Ringers 1,000 ML 100 ML IVCONT ×4 (00:20→21:35)
[2021-07-02] MEDS: Heparin Sodium,Porcine 5,000 UNIT/ML VIAL 5000 UNIT SUBCUT ×3 (00:23→20:20)
[2021-07-02 00:28] VITALS: BP 105/55; PULSE 76; RESP 14; O2SAT 100
[2021-07-02 05:47] VITALS: BP 113/46; PULSE 78; RESP 20; TEMP 36.7; O2SAT 100
[2021-07-02 06:06] LABS: MANUAL DIFF FLAG NO
[2021-07-02 06:13] LABS: Basophils Percent Auto 0.2 % (0-2); Eosinophils Absolute Auto 0.3 X10*3/uL (0.0-0.4); Eosinophils Percent Auto 3.2 % (0-4); Hematocrit 24.2 % (37.0-47.0); Hemoglobin 7.1 g/dl (12.0-16.0); Imm Gran Abs Auto 0.02 X10*3/uL (0.00-0.03); Imm Gran Pct Auto 0.2 % (0.0-0.4); Lymphocytes Absolute Auto 3.4 X10*3/uL (1.2-4.9); Lymphocytes Percent Auto 41.6 % (20-40); Mean Corpuscular HGB Conc 29.3 g/dl (31.0-35.0); Mean Corpuscular Hemoglobin 29.2 pg (27.0-33.0); Mean Corpuscular Volume 99.6 fL (80.0-98.0); Mean Platelet Volume 10.6 fL (9.4-12.3); Monocytes Absolute Auto 0.7 X10*3/uL (0.1-1.2); Monocytes Percent Auto 8.3 % (2-11); Neutrophils Absolute Auto 3.8 x10*3/uL (2.0-8.3); Neutrophils Percent Auto 46.5 % (45-73); Platelet Count 151 X10*3/uL (160-400); Red Blood Count 2.43 X10*6/uL (4.20-5.50); Red Cell Distribution Width 13.2 % (11.0-16.0); White Blood Count 8.2 X10*3/uL (4.8-10.8)
[2021-07-02 07:15] LABS: COVID-19 Test Negative (Negative)
[2021-07-02 07:23] LABS: Glucose, Whole Blood 125 mg/dL (60-115)
[2021-07-02] MEDS: Omeprazole 20 MG CAPSULE.DR PO (07:36)
[2021-07-02] MEDS: 0.9 % Sodium Chloride Flush 3 ML SYRINGE IVFLUSH ×2 (07:36→11:43)
[2021-07-02] MEDS: Folic Acid 1 MG TABLET PO (07:36)
[2021-07-02] MEDS: Aspirin Enteric Coated 81 MG TABLET.DR PO (07:36)
[2021-07-02] MEDS: lisinopriL 20 MG TABLET PO (07:37)
[2021-07-02] MEDS: Loratadine 10 MG TABLET PO (07:37)
[2021-07-02] MEDS: carvediloL 3.125 MG TABLET PO ×2 (07:37→20:20)
[2021-07-02 07:38] VITALS: BP 124/63; PULSE 77; RESP 19; O2SAT 98
[2021-07-02 08:34] LABS: Immature Retic Fraction 11.5 % (3.0-15.9); Retic HGB Equivalent 32.6 pg (30.0-35.0); Reticulocyte Percent 1.4 % (0.5-1.8); Reticulocytes Absolute 0.034 X10*6/uL (0.026-0.095)
[2021-07-02 08:42] LABS: Folate > 20.0 ng/mL (> or = 4.0); Vitamin B12 250 pg/mL (200-900)
[2021-07-02] MEDS: Ketotifen Fumarate 0.025% Oph 5 ML DRPBTL 1 DROP EYE-BOTH (08:58)
[2021-07-02] MEDS: Fluticasone Propionate Nasal 16 GM SPRAY 2 SPRAY NOSTRIL-B (08:58)
[2021-07-02] MEDS: Lipase/Prot/Amylase 24/76/120K 1 CAP CAPSULE.DR PO ×3 (08:59→20:20)
[2021-07-02] MEDS: Sodium Zirconium Cyclosilicate 10 GM POWD.PACK PO (09:03)
[2021-07-02 09:13] LABS: Estimated Average Glucose 151 mg/dL; Hemoglobin A1c % 6.9 %
[2021-07-02 09:29] LABS: Iron 56 mcg/dL (30-160); Lactate Dehydrogenase 181 U/L (122-220); Percent Iron Saturation 28 % (15-50); Total Iron Binding Capacity 199 mcg/dL (228-428); Unsaturated Iron Binding 143 ug/dL
--- NOTE | 2021-07-02 09:58 | HO.PM.IMPN ---
Subjective Subjective Date of Service: 07/02/21 Interval History: This history was taken in Greenlandic from the patient. Denies lighthededness or dyspnea Endorses fatigue FOBT negative Review of Systems Review of Systems: Yes all other systems are reviewed and are negative Physical Exam Vital Signs: Vital Signs: Last Vital Signs Temp 98.1 F 07/02/21 05:47 Pulse 77 07/02/21 07:38 Resp 19 07/02/21 07:38 BP 124/63 07/02/21 07:38 Pulse Ox 98 07/02/21 07:38 BMI result Body Mass Index 27.1 Gen: in no acute distress HEENT: sclera anicteric, pale mucus membranes Neck: supple Lungs: clear to auscultation bilaterally Heart: regular rate and rhythm, no murmurs Abd: soft, non-tender, non-distended Ext: no edema Skin: warm/well-perfused Neuro: alert and oriented x3, no focal findings Psych: appropriate affect Objective Data Active Medications Acetaminophen (Acetaminophen 325 Mg Tablet) 650 mg PO Q6H PRN PRN Reason: Pain, Mild (Pain Scale 1-3) Albuterol Sulfate (Albuterol Sulfate 90 Mcg 8 Gm Inhaler) 2 puff INHALE Q4H PRN PRN Reason: Shortness Of Breath Or Wheezing Lipase/Protease/Amylase (Lipase/Prot/Amylase 24/76/120k 1 Cap Capsule.) 1 cap PO TID [facility] Last Admin: 07/02/21 08:59 Dose: 1 cap Documented by: PATEL Aspirin (Aspirin Enteric Coated 81 Mg Tablet.) 81 mg PO DAILY [facility] Last Admin: 07/02/21 07:36 Dose: 81 mg Documented by: PATEL Atorvastatin Calcium (Atorvastatin Calcium 80 Mg Tablet) 80 mg PO BEDTIME [facility] Baclofen (Baclofen 10 Mg Tablet) 10 mg PO TID PRN PRN Reason: muscle spasm Calcium Carbonate (Calcium Carbonate 500 Mg Tablet) 500 mg PO BID [facility] Last Admin: 07/02/21 08:59 Dose: 500 mg Documented by: PATEL Carvedilol (Carvedilol 3.125 Mg Tablet) 3.125 mg PO BID [facility]; Protocol Last Admin: 07/02/21 07:37 Dose: 3.125 mg Documented by: PATEL Dextrose (Dextrose 50 % 25 Gm/50 Ml Syringe) 25 gm IVPUSH Q15M PRN; Protocol PRN Reason: per Hypoglycemia Standing Ord. Docusate Sodium (Docusate Sodium 100 Mg Capsule) 100 mg PO DAILY PRN PRN Reason: Constipation Ergocalciferol (Ergocalciferol (Vitamin D2) 1,250 Mcg Capsule) 1,250 mcg PO MO DERIC Fluticasone Propionate (Fluticasone Propionate 100 Mcg Blst.W.Dev) 2 puff INHALE RBID [facility] Last Admin: 07/02/21 08:07 Dose: Not Given Documented by: SHANNON Non-Admin Reason: Med Not Available Fluticasone Propionate (Fluticasone Propionate Nasal 16 Gm [place]) 2 spray NOSTRIL-B DAILY [facility] Last Admin: 07/02/21 08:58 Dose: 2 spray Documented by: PATEL Folic Acid (Folic Acid 1 Mg Tablet) 1 mg PO DAILY [facility] Last Admin: 07/02/21 07:36 Dose: 1 mg Documented by: PATEL Gabapentin (Gabapentin 100 Mg Capsule) 100 mg PO BEDTIME [facility] Glucose (Glucose Gel 15 Gm Gel..Gram.) 15 gm PO Q15M PRN; Protocol PRN Reason: per Hypoglycemia Standing Ord. Heparin Sodium (Porcine) (Heparin Sodium,Porcine 5,000 Unit/Ml Vial) 5,000 unit SUBCUT Q12H [facility] Last Admin: 07/02/21 00:23 Dose: 5,000 unit Documented by: MONIKA Lactated Ringer's (Lr) 1,000 mls @ 100 mls/hr IVCONT .Q10H [facility] Last Admin: 07/02/21 07:36 Dose: 100 mls/hr Documented by: PATEL Ceftriaxone Sodium 1 gm/ (Sodium Chloride) 50 mls @ 100 mls/hr IV Q24H [facility] Insulin Glargine (Insulin Glargine,Hum.Rec.Anlog 100 Unit/Ml 10 Ml Vial) 20 unit SUBCUT BEDTIME [facility] Insulin Human Lispro (Insulin Lispro 100 Unit/Ml 3 Ml Vial) 0 unit SUBCUT QIDACHS [facility]; Protocol Last Admin: 07/02/21 07:39 Dose: Not Given Documented by: PATEL Non-Admin Reason: See Note Insulin Human Lispro (Insulin Lispro 100 Unit/Ml 3 Ml Vial) 6 unit SUBCUT DAILY@0730 [facility] Last Admin: 07/02/21 07:40 Dose: Not Given Documented by: PATEL Non-Admin Reason: See Note Insulin Human Lispro (Insulin Lispro 100 Unit/Ml 3 Ml Vial) 12 unit SUBCUT DAILY@1630 [facility] Ketotifen Fumarate (Ketotifen Fumarate 0.025% Oph 5 Ml Drpbtl) 1 drop EYE-BOTH BID [facility] Last Admin: 07/02/21 08:58 Dose: 1 drop Documented by: PATEL Loratadine (Loratadine 10 Mg Tablet) 10 mg PO DAILY [facility] Last Admin: 07/02/21 07:37 Dose: 10 mg Documented by: PATEL Omeprazole (Omeprazole 20 Mg Capsule.Dr) 20 mg PO DAILY@0630 [facility] Last Admin: 07/02/21 07:36 Dose: 20 mg Documented by: PATEL Ondansetron HCl (Ondansetron Hcl 4 Mg/2 Ml Vial) 4 mg IVPUSH Q8H PRN PRN Reason: Nausea and Vomiting Sodium Chloride (0.9 % Sodium Chloride Flush 3 Ml Syringe) 3 ml IVFLUSH QSHIFT [facility] Last Admin: 07/02/21 07:36 Dose: 3 ml Documented by: PATEL Labs CBC & Chem 7: 07/02/21 05:56 07/01/21 23:17 Labs: Laboratory Results - last 24 hr 07/01/21 07/01/21 07/01/21 17:01 18:17 18:17 MCV 97.6 MCH 29.7 MCHC 30.5 L RDW 13.2 Plt Count 171 MPV 10.7 Immature Gran % (Auto) 0.7 H Neut % (Auto) 47.5 Lymph % (Auto) 41.7 H [place] % (Auto) 7.0 Eos % (Auto) 2.9 Baso % (Auto) 0.2 Lymph # (Auto) 3.6 [place] # (Auto) 0.6 Eos # (Auto) 0.3 Baso # (Auto) 0.0 Abs Immat Gran (auto) 0.06 H Absolute Neuts (auto) 4.1 Absolute Nucleated RBC 0.000 Nucleated RBC % (auto) 0.0 Absolute Retic Percent Retic Immature Retic Fraction Retic Hgb Equivalent Anion Gap 13 Estim Creat Clear Calc 24.9 Estimated GFR 26 POC Glucose Random Glucose 130 H Estimat Average Glucose Hemoglobin A1c % Lactic Acid Calcium 9.3 Iron TIBC % Saturation Unsat Iron Binding Ferritin Total Bilirubin 0.3 AST 98 H ALT 114 H Alkaline Phosphatase 119 H Lactate Dehydrogenase Total Protein 6.3 L Albumin 3.7 Vitamin B12 Folate Urine Color YELLOW Urine Appearance HAZY Urine pH 5.5 Ur Specific [place] 1.020 Urine Protein NEG Urine Glucose (UA) NEG Urine Ketones NEG Urine Blood 1+ H Urine Nitrite NEG Ur Leukocyte Esterase 1+ H Urine RBC 1-4 Urine WBC 15-29 H Ur Squamous Epith Cells 2+ Urine Bacteria 3+ Stool Occult Blood COVID-19 ([facility]) COVID-19 Clin Com 07/01/21 07/01/21 07/01/21 22:28 23:17 23:17 MCV MCH MCHC RDW Plt Count MPV Immature Gran % (Auto) Neut % (Auto) Lymph % (Auto) [place] % (Auto) Eos % (Auto) Baso % (Auto) Lymph # (Auto) [place] # (Auto) Eos # (Auto) Baso # (Auto) Abs Immat Gran (auto) Absolute Neuts (auto) Absolute Nucleated RBC Nucleated RBC % (auto) Absolute Retic Percent Retic Immature Retic Fraction Retic Hgb Equivalent Anion Gap 11 L Estim Creat Clear Calc 26.1 Estimated GFR 27 POC Glucose Random Glucose 126 H Estimat Average Glucose Hemoglobin A1c % Lactic Acid 1.8 Calcium 9.2 Iron TIBC % Saturation Unsat Iron Binding Ferritin Total Bilirubin AST ALT Alkaline Phosphatase Lactate Dehydrogenase Total Protein Albumin Vitamin B12 250 Folate > 20.0 Urine Color Urine Appearance Urine pH Ur Specific [place] Urine Protein Urine Glucose (UA) Urine Ketones Urine Blood Urine Nitrite Ur Leukocyte Esterase Urine RBC Urine WBC Ur Squamous Epith Cells Urine Bacteria Stool Occult Blood COVID-19 ([facility]) COVID-19 Clin Com 07/01/21 07/02/21 07/02/21 23:17 00:09 05:56 MCV 99.6 H MCH 29.2 MCHC 29.3 L RDW 13.2 Plt Count 151 L MPV 10.6 Immature Gran % (Auto) 0.2 Neut % (Auto) 46.5 Lymph % (Auto) 41.6 H [place] % (Auto) 8.3 Eos % (Auto) 3.2 Baso % (Auto) 0.2 Lymph # (Auto) 3.4 [place] # (Auto) 0.7 Eos # (Auto) 0.3 Baso # (Auto) 0.0 Abs Immat Gran (auto) 0.02 Absolute Neuts (auto) 3.8 Absolute Nucleated RBC 0.000 Nucleated RBC % (auto) 0.0 Absolute Retic 0.034 Percent Retic 1.4 Immature Retic Fraction 11.5 Retic Hgb Equivalent 32.6 Anion Gap Estim Creat Clear Calc Estimated GFR POC Glucose Random Glucose Estimat Average Glucose Hemoglobin A1c % Lactic Acid Calcium Iron TIBC % Saturation Unsat Iron Binding Ferritin 802 H Total Bilirubin AST ALT Alkaline Phosphatase Lactate Dehydrogenase Total Protein Albumin Vitamin B12 Folate Urine Color Urine Appearance Urine pH Ur Specific [place] Urine Protein Urine Glucose (UA) Urine Ketones Urine Blood Urine Nitrite Ur Leukocyte Esterase Urine RBC Urine WBC Ur Squamous Epith Cells Urine Bacteria Stool Occult Blood NEGATIVE COVID-19 ([facility]) COVID-19 Clin Com 07/02/21 07/02/21 07/02/21 05:56 06:44 07:08 MCV MCH MCHC RDW Plt Count MPV Immature Gran % (Auto) Neut % (Auto) Lymph % (Auto) [place] % (Auto) Eos % (Auto) Baso % (Auto) Lymph # (Auto) [place] # (Auto) Eos # (Auto) Baso # (Auto) Abs Immat Gran (auto) Absolute Neuts (auto) Absolute Nucleated RBC Nucleated RBC % (auto) Absolute Retic Percent Retic Immature Retic Fraction Retic Hgb Equivalent Anion Gap Estim Creat Clear Calc Estimated GFR POC Glucose 125 H Random Glucose Estimat Average Glucose Cancelled Hemoglobin A1c % Cancelled Lactic Acid Calcium Iron TIBC % Saturation Unsat Iron Binding Ferritin Total Bilirubin AST ALT Alkaline Phosphatase Lactate Dehydrogenase Total Protein Albumin Vitamin B12 Folate Urine Color Urine Appearance Urine pH Ur Specific [place] Urine Protein Urine Glucose (UA) Urine Ketones Urine Blood Urine Nitrite Ur Leukocyte Esterase Urine RBC Urine WBC Ur Squamous Epith Cells Urine Bacteria Stool Occult Blood COVID-19 ([facility]LE) Negative COVID-19 Clin Com See Note 07/02/21 07/02/21 08:45 08:45 MCV MCH MCHC RDW Plt Count MPV Immature Gran % (Auto) Neut % (Auto) Lymph % (Auto) [place] % (Auto) Eos % (Auto) Baso % (Auto) Lymph # (Auto) [place] # (Auto) Eos # (Auto) Baso # (Auto) Abs Immat Gran (auto) Absolute Neuts (auto) Absolute Nucleated RBC Nucleated RBC % (auto) Absolute Retic Percent Retic Immature Retic Fraction Retic Hgb Equivalent Anion Gap Estim Creat Clear Calc Estimated GFR POC Glucose Random Glucose Estimat Average Glucose 151 Hemoglobin A1c % 6.9 Lactic Acid Calcium Iron 56 TIBC 199 L % Saturation 28 Unsat Iron Binding 143 Ferritin Total Bilirubin AST ALT Alkaline Phosphatase Lactate Dehydrogenase 181 Total Protein Albumin Vitamin B12 Folate Urine Color Urine Appearance Urine pH Ur Specific [place] Urine Protein Urine Glucose (UA) Urine Ketones Urine Blood Urine Nitrite Ur Leukocyte Esterase Urine RBC Urine WBC Ur Squamous Epith Cells Urine Bacteria Stool Occult Blood COVID-19 ([facility]LE) COVID-19 Clin Com Assessment and Plan (1) Acute kidney injury superimposed on CKD: Status: Acute (2) Normocytic anemia: Status: Acute Plan hospital d#2 65yo F with CKD3, DM2, HTN, chronic anemia, chronic pancreatitis sent in the hospital due to ANGELY + hyperK + worsening anemia on outpt labs # hypoproliferative macrocytic anemia - B12/FA normal, FOBT negative - likely anemia of chronic inflammation - will order peripheral blood smear, SPEP + LIVAN, sFLCR; Hematology consult - T+S and transfuse if Hb <7 in am; pt still considering whether she would consent to transfusion # ANGELY/CKD3 - IV fluid hydration, monitor BMP, avoid nephrotoxins, d/c lisinopril # hyperK - d/c lisinopril, give Loklema, recheck BMP BMP in am # UTI - ceftriaxone d#2, follow UCx # transaminasemia - check HBV/HCV serology + abd us; likely fatty liver dz # chronic pancreatitis - continue enzyme replacement # depression - CARE Team consult # HTN - continue carvedilol # HLD - continue stain # DM2, A1c 6.9 - continue basal/bolus insulin, hold MTF + repaglinide # asthma - continue ICS, prn ANUJ inhalers # neuropathy - continue gabapentin # VTE ppx - UFH Quality Stroke Does the patient have a stroke diagnosis?: No VTE Prior VTE?: No VTE Risk Level:: Medical - moderate - high VTE Device Contraindication: Treatment Not Indicated VTE Drug Contraindication: N/A - Med Ordered
[2021-07-02 11:51] LABS: Glucose, Whole Blood 117 mg/dL (60-115)
[2021-07-02 12:00] VITALS: BP 127/65; PULSE 68; RESP 20; TEMP 36.8; O2SAT 100
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
[2021-07-02 14:12] LABS: Folate > 20.0 ng/mL (> or = 4.0); Vitamin B12 218 pg/mL (200-900)
[2021-07-02 16:12] VITALS: BP 122/54; PULSE 75; RESP 12; TEMP 36.8; O2SAT 100
[2021-07-02 17:22] LABS: Glucose, Whole Blood 329 mg/dL (60-115)
[2021-07-02] MEDS: Insulin Lispro 100 UNIT/ML 3 ML VIAL SUBCUT ×2 (17:59→21:33)
[2021-07-02 18:16] LABS: Glucose, Whole Blood 312 mg/dL (60-115)
--- NOTE | 2021-07-02 18:18 | PC.NURSE ---
DINNER POC 329. CLARIFIED INSULIN ORDER FOR COVERAGE WITH MD. SLIDING SCALE ADMINISTERED PER MD. HELD SCHEDULED DOSE. WILL CONTINUE TO MONITOR.
[2021-07-02] MEDS: cefTRIAXone sodium 1 GM in 0.9 % Sodium Chloride 50 ML IV (20:17)
[2021-07-02] MEDS: Gabapentin 100 MG CAPSULE PO (20:20)
[2021-07-02] MEDS: Atorvastatin Calcium 80 MG TABLET PO (20:20)
[2021-07-02 20:24] VITALS: BP 121/59; PULSE 78; RESP 24; O2SAT 100
[2021-07-02 21:08] LABS: Glucose, Whole Blood 198 mg/dL (60-115)
[2021-07-02] MEDS: Insulin Glargine,Hum.rec.anlog 100 UNIT/ML 10 ML VIAL 20 UNIT SUBCUT (21:34)
[2021-07-03] VITALS (11 sets, daily range): BP systolic 110–140; BP diastolic 57–75; PULSE 71–89; RESP 13–19; TEMP 36.6–37.4; O2SAT 96–100
--- NOTE | 2021-07-03 01:24 | PC.NURSE ---
Pt seen on bed at shift change alert and oriented, pale, denies any pain, no SOB, LSC, IVF tolerated, meds given, no edema noted, assited to the BR when tolieting, POC, 198, meds given, snacks requested and tolerated.
[2021-07-03] MEDS: Omeprazole 20 MG CAPSULE.DR PO (05:35)
[2021-07-03] MEDS: Lactated Ringers 1,000 ML 100 ML IVCONT ×2 (06:09→20:00)
[2021-07-03 06:43] LABS: Hematocrit 23.9 % (37.0-47.0); Hemoglobin 7.3 g/dl (12.0-16.0); Mean Corpuscular HGB Conc 30.5 g/dl (31.0-35.0); Mean Corpuscular Hemoglobin 29.1 pg (27.0-33.0); Mean Corpuscular Volume 95.2 fL (80.0-98.0); Mean Platelet Volume 10.6 fL (9.4-12.3); Platelet Count 173 X10*3/uL (160-400); Red Blood Count 2.51 X10*6/uL (4.20-5.50); Red Cell Distribution Width 13.2 % (11.0-16.0); White Blood Count 6.7 X10*3/uL (4.8-10.8)
[2021-07-03 07:35] LABS: Anion Gap 12 (12-20); Blood Urea Nitrogen 25 mg/dL (9-16); Calcium 9.1 mg/dL (8.4-10.2); Carbon Dioxide 19 mmol/L (22-29); Chloride 118 mmol/L (96-108); Creatinine Clr Calc Pharmacy 28.9; Estimated Glomerular Filt Rate 30; Glucose Random 111 mg/dL (60-115); Potassium 4.5 mmol/L (3.3-5.1); Sodium 144 mmol/L (135-145)
[2021-07-03 08:21] LABS: Glucose, Whole Blood 97 mg/dL (60-115)
[2021-07-03 08:24] LABS: HBS Num1 1.27 mIU/mL (0-7.99); ~HepC Num1 0.13 S/CO (0.00-0.79); ~Hepatitis B Surface Antibody NONREACTIVE (Nonreactive); ~Hepatitis C Antibody Nonreactive (Nonreactive)
[2021-07-03 08:47] LABS: HBc Num1 1.41 S/CO (0.00-0.79); HBsAGNum1 0.35 S/CO (0.00-0.99); Hepatitis B Surface Antigen Negative (Negative)
[2021-07-03] MEDS: Fluticasone Propionate 100 MCG BLST.W.DEV 2 PUFF INHALE ×2 (09:07→19:56)
[2021-07-03] MEDS: Lipase/Prot/Amylase 24/76/120K 1 CAP CAPSULE.DR PO ×3 (09:24→22:28)
[2021-07-03] MEDS: Loratadine 10 MG TABLET PO (09:24)
[2021-07-03] MEDS: carvediloL 3.125 MG TABLET PO ×2 (09:25→22:28)
[2021-07-03] MEDS: Fluticasone Propionate Nasal 16 GM SPRAY 2 SPRAY NOSTRIL-B (09:25)
[2021-07-03] MEDS: Folic Acid 1 MG TABLET PO (09:25)
[2021-07-03] MEDS: Aspirin Enteric Coated 81 MG TABLET.DR PO (09:25)
[2021-07-03] MEDS: 0.9 % Sodium Chloride Flush 3 ML SYRINGE IVFLUSH (09:26)
[2021-07-03] MEDS: Heparin Sodium,Porcine 5,000 UNIT/ML VIAL 5000 UNIT SUBCUT ×2 (10:27→22:30)
[2021-07-03 13:28] LABS: Glucose, Whole Blood 191 mg/dL (60-115)
[2021-07-03] MEDS: Insulin Lispro 100 UNIT/ML 3 ML VIAL SUBCUT ×3 (13:42→22:29)
[2021-07-03 14:25] LABS: HBc Num2 1.29 S/CO; Hepatitis B Core Antibody Reactive (Nonreactive)
[2021-07-03 16:52] LABS: Glucose, Whole Blood 213 mg/dL (60-115)
--- NOTE | 2021-07-03 16:59 | PC.NURSE ---
Pt was prescribed blood in ED overflow. This nurse along with another nurse were unable to get a 20G IV in pt.Dr. Banuelos gave this nurse go ahead to to give blood through 22G IV.
--- NOTE | 2021-07-03 17:02 | P.PNIM_ITS ---
Subjective Subjective Date of Service: 07/03/21 Interval History: No acute issues overnight. Feels well this a.m. Review of Systems (all information gleaned through associate director qa) Denies chest pain Denies shortness of breath Denies nausea vomiting diarrhea Physical Exam Vital Signs: Vital Signs: Last Vital Signs Temp 98.1 F 07/03/21 16:47 Pulse 83 07/03/21 16:47 Resp 16 07/03/21 16:47 BP 132/62 07/03/21 16:47 Pulse Ox 100 07/03/21 15:25 BMI result Body Mass Index 27.1 Const: Other: No acute distress Resp: Other: Clear to auscultation bilaterally no rales rhonchi wheezes Cardio: Other: No S4; positive S1-S2; no S3 murmurs rubs or gallops GI: Other: Soft nontender nondistended with normoactive bowel sounds Extrem: Other: No edema bilaterally Objective Data Active Medications Acetaminophen (Acetaminophen 325 Mg Tablet) 650 mg PO Q6H PRN PRN Reason: Pain, Mild (Pain Scale 1-3) Albuterol Sulfate (Albuterol Sulfate 90 Mcg 8 Gm Inhaler) 2 puff INHALE Q4H PRN PRN Reason: Shortness Of Breath Or Wheezing Lipase/Protease/Amylase (Lipase/Prot/Amylase 24/76/120k 1 Cap Capsule.) 1 cap PO TID [facility] Last Admin: 07/03/21 14:01 Dose: 1 cap Documented by: KATIE Aspirin (Aspirin Enteric Coated 81 Mg Tablet.) 81 mg PO DAILY [facility] Last Admin: 07/03/21 09:25 Dose: 81 mg Documented by: KATIE Atorvastatin Calcium (Atorvastatin Calcium 80 Mg Tablet) 80 mg PO BEDTIME [facility] Last Admin: 07/02/21 20:20 Dose: 80 mg Documented by: CASTILM Baclofen (Baclofen 10 Mg Tablet) 10 mg PO TID PRN PRN Reason: muscle spasm Calcium Carbonate (Calcium Carbonate 500 Mg Tablet) 500 mg PO BID [facility] Last Admin: 07/03/21 09:25 Dose: 500 mg Documented by: KATIE Carvedilol (Carvedilol 3.125 Mg Tablet) 3.125 mg PO BID [facility]; Protocol Last Admin: 07/03/21 09:25 Dose: 3.125 mg Documented by: KATIE Cyanocobalamin (Cyanocobalamin (Vitamin B-12) 1,000 Mcg/Ml Vial) 1,000 mcg IM DAILY [facility] Stop: 07/09/21 09:01 Dextrose (Dextrose 50 % 25 Gm/50 Ml Syringe) 25 gm IVPUSH Q15M PRN; Protocol PRN Reason: per Hypoglycemia Standing Ord. Docusate Sodium (Docusate Sodium 100 Mg Capsule) 100 mg PO DAILY PRN PRN Reason: Constipation Ergocalciferol (Ergocalciferol (Vitamin D2) 1,250 Mcg Capsule) 1,250 mcg PO MO DERIC Fluticasone Propionate (Fluticasone Propionate 100 Mcg Blst.W.Dev) 2 puff INHALE RBID [facility] Last Admin: 07/03/21 09:07 Dose: 2 puff Documented by: SOPHIE Fluticasone Propionate (Fluticasone Propionate Nasal 16 Gm Stone) 2 spray NOSTRIL-B DAILY [facility] Last Admin: 07/03/21 09:25 Dose: 2 spray Documented by: KATIE Folic Acid (Folic Acid 1 Mg Tablet) 1 mg PO DAILY [facility] Last Admin: 07/03/21 09:25 Dose: 1 mg Documented by: KATIE Gabapentin (Gabapentin 100 Mg Capsule) 100 mg PO BEDTIME [facility] Last Admin: 07/02/21 20:20 Dose: 100 mg Documented by: SANDRO Glucose (Glucose Gel 15 Gm Gel..Gram.) 15 gm PO Q15M PRN; Protocol PRN Reason: per Hypoglycemia Standing Ord. Heparin Sodium (Porcine) (Heparin Sodium,Porcine 5,000 Unit/Ml Vial) 5,000 unit SUBCUT Q12H [facility] Last Admin: 07/03/21 10:27 Dose: 5,000 unit Documented by: KATIE Lactated Ringer's (Lr) 1,000 mls @ 100 mls/hr IVCONT .Q10H [facility] Last Admin: 07/03/21 06:09 Dose: 100 mls/hr Documented by: SANDRO Ceftriaxone Sodium 1 gm/ (Sodium Chloride) 50 mls @ 100 mls/hr IV Q24H [facility] Last Infusion: 07/02/21 21:08 Dose: 0 mls/hr Documented by: SANDRO Insulin Glargine (Insulin Glargine,Hum.Rec.Anlog 100 Unit/Ml 10 Ml Vial) 20 unit SUBCUT BEDTIME [facility] Last Admin: 07/02/21 21:34 Dose: 20 unit Documented by: SANDRO Insulin Human Lispro (Insulin Lispro 100 Unit/Ml 3 Ml Vial) 0 unit SUBCUT Q IDACHS [facility]; Protocol Last Admin: 07/03/21 13:42 Dose: 2 unit Documented by: KATIE Insulin Human Lispro (Insulin Lispro 100 Unit/Ml 3 Ml Vial) 6 unit SUBCUT DAILY@0730 [facility] Last Admin: 07/03/21 09:26 Dose: Not Given Documented by: KATIE Non-Admin Reason: bs 97 Insulin Human Lispro (Insulin Lispro 100 Unit/Ml 3 Ml Vial) 12 unit SUBCUT DAILY@1630 [facility] Last Admin: 07/02/21 17:53 Dose: Not Given Documented by: ALEXEY Non-Admin Reason: Physician Held Med Ketotifen Fumarate (Ketotifen Fumarate 0.025% Oph 5 Ml Drpbtl) 1 drop EYE-BOTH BID [facility] Last Admin: 07/03/21 09:27 Dose: Not Given Documented by: KATIE Non-Admin Reason: n/a Loratadine (Loratadine 10 Mg Tablet) 10 mg PO DAILY [facility] Last Admin: 07/03/21 09:24 Dose: 10 mg Documented by: KATIE Omeprazole (Omeprazole 20 Mg Capsule.Dr) 20 mg PO DAILY@0630 [facility] Last Admin: 07/03/21 05:35 Dose: 20 mg Documented by: SANDRO Ondansetron HCl (Ondansetron Hcl 4 Mg/2 Ml Vial) 4 mg IVPUSH Q8H PRN PRN Reason: Nausea and Vomiting Sodium Chloride (0.9 % Sodium Chloride Flush 3 Ml Syringe) 3 ml IVFLUSH QSHIFT [facility] Last Admin: 07/03/21 09:26 Dose: 3 ml Documented by: KATIE Labs CBC & Chem 7: 07/03/21 06:28 07/03/21 06:28 Labs: Laboratory Results - last 24 hr 07/02/21 07/02/21 07/02/21 11:09 17:17 18:12 MCV MCH MCHC RDW Plt Count MPV Absolute Nucleated RBC Nucleated RBC % (auto) Anion Gap Estim Creat Clear Calc Estimated GFR POC Glucose 329 H 312 H Random Glucose Calcium Carcinoembryonic Ag Hep Bs Antigen Hep Bs Antibody Hep B Core Total Ab Hepatitis C Ab (EIA) Blood Type O Negative Antibody Screen NEGATIVE Crossmatch See Detail 07/02/21 07/03/21 07/03/21 21:03 06:28 06:28 MCV 95.2 MCH 29.1 MCHC 30.5 L RDW 13.2 Plt Count 173 MPV 10.6 Absolute Nucleated RBC 0.000 Nucleated RBC % (auto) 0.0 Anion Gap Estim Creat Clear Calc Estimated GFR POC Glucose 198 H Random Glucose Calcium Carcinoembryonic Ag Hep Bs Antigen Negative Hep Bs Antibody NONREACTIVE Hep B Core Total Ab Reactive Hepatitis C Ab (EIA) Nonreactive Blood Type Antibody Screen Crossmatch 07/03/21 07/03/21 07/03/21 06:28 07:37 13:24 MCV MCH MCHC RDW Plt Count MPV Absolute Nucleated RBC Nucleated RBC % (auto) Anion Gap 12 Estim Creat Clear Calc 28.9 Estimated GFR 30 POC Glucose 97 191 H Random Glucose 111 Calcium 9.1 Carcinoembryonic Ag 7.80 Hep Bs Antigen Hep Bs Antibody Hep B Core Total Ab Hepatitis C Ab (EIA) Blood Type Antibody Screen Crossmatch 07/03/21 16:48 MCV MCH MCHC RDW Plt Count MPV Absolute Nucleated RBC Nucleated RBC % (auto) Anion Gap Estim Creat Clear Calc Estimated GFR POC Glucose 213 H Random Glucose Calcium Carcinoembryonic Ag Hep Bs Antigen Hep Bs Antibody Hep B Core Total Ab Hepatitis C Ab (EIA) Blood Type Antibody Screen Crossmatch Microbiology Microbiology Results: Microbiology 07/01/21 Unknown Urine Culture - Final Urine clean catch - Urine hansen top Klebsiella pneumoniae 07/01/21 22:28 Blood Culture - Preliminary Blood - Venous No growth after 24 hours. 07/01/21 22:28 Blood Culture - Preliminary Blood - Venous No growth after 24 hours. Assessment and Plan (1) Normocytic anemia: Status: Acute (2) Acute kidney injury superimposed on CKD: Status: Acute (3) DMII (diabetes mellitus, type 2): Status: Acute Plan 65yo F with CKD3, DM2, HTN, chronic anemia, chronic pancreatitis sent in the hospital due to ANGELY + hyperK + worsening anemia on outpt labs 1.Anemia(Query R/T CKD) - B12/FA normal, FOBT negative - will transfuse 1 unit of packed red cells as per Hematology -initial workup labs still pending 2. ANGELY/CKD3 - change IV fluid to half normal saline given hyperchloremic metabolic acidosis -renals responded to volume -follow renals/divalents in am -renal consult if no improvement l 3. Hyperkalemia -good response to Lokelma -follow renals/divalents -continue to hold ACEI....BP acceptable 4, UTI (Klebsiella) -sensitive to CTX(3) -continue same...Ceftin upon D/C 5.Transaminasemia - Hepatitis panel pending -trend LFT's -abd US essentially unremarkable 6. DMII -acceptable control -continue basal/bolus insulin -continue to hold MTF + repaglinide -add back when appropriate VTE ppx - UFH Full COde Will likely require 1-2 additional midnights going forward to complete transfusion and followed labs Quality Stroke Does the patient have a stroke diagnosis?: No VTE Prior VTE?: No VTE Risk Level:: Medical - moderate - high VTE Device Contraindication: Treatment Not Indicated VTE Drug Contraindication: N/A - Med Ordered
[2021-07-03] MEDS: Cyanocobalamin (Vitamin B-12) 1,000 MCG/ML VIAL 1000 MCG IM (18:17)
[2021-07-03] MEDS: Insulin Lispro 100 UNIT/ML 3 ML VIAL 12 UNIT SUBCUT (18:28)
[2021-07-03 19:57] LABS: Glucose, Whole Blood 248 mg/dL (60-115)
[2021-07-03] MEDS: cefTRIAXone sodium 1 GM in 0.9 % Sodium Chloride 50 ML IV (21:27)
[2021-07-03] MEDS: Atorvastatin Calcium 80 MG TABLET PO (22:28)
[2021-07-03] MEDS: Gabapentin 100 MG CAPSULE PO (22:29)
[2021-07-03] MEDS: Insulin Glargine,Hum.rec.anlog 100 UNIT/ML 10 ML VIAL 20 UNIT SUBCUT (22:29)
[2021-07-04 03:17] VITALS: BP 122/60; PULSE 86; RESP 18; TEMP 36.9; O2SAT 97
[2021-07-04] MEDS: Omeprazole 20 MG CAPSULE.DR PO (05:42)
[2021-07-04] MEDS: Lactated Ringers 1,000 ML 100 ML IVCONT (05:44)
[2021-07-04 06:20] LABS: MANUAL DIFF FLAG NO
[2021-07-04 06:32] LABS: Basophils Percent Auto 0.1 % (0-2); Eosinophils Absolute Auto 0.4 X10*3/uL (0.0-0.4); Eosinophils Percent Auto 4.7 % (0-4); Hematocrit 24.8 % (37.0-47.0); Hemoglobin 7.7 g/dl (12.0-16.0); Imm Gran Abs Auto 0.02 X10*3/uL (0.00-0.03); Imm Gran Pct Auto 0.3 % (0.0-0.4); Lymphocytes Percent Auto 40.2 % (20-40); Mean Corpuscular Hemoglobin 29.2 pg (27.0-33.0); Mean Corpuscular Volume 93.9 fL (80.0-98.0); Mean Platelet Volume 10.8 fL (9.4-12.3); Monocytes Absolute Auto 0.7 X10*3/uL (0.1-1.2); Monocytes Percent Auto 9.2 % (2-11); Neutrophils Absolute Auto 3.4 x10*3/uL (2.0-8.3); Neutrophils Percent Auto 45.5 % (45-73); Platelet Count 155 X10*3/uL (160-400); Red Blood Count 2.64 X10*6/uL (4.20-5.50); Red Cell Distribution Width 13.8 % (11.0-16.0); White Blood Count 7.5 X10*3/uL (4.8-10.8)
[2021-07-04 07:12] LABS: Alanine Aminotransferase 70 U/L (0-31); Albumin Level 3.1 g/dL (3.5-5.0); Alkaline Phosphatase 106 U/L (39-117); Anion Gap 13 (12-20); Aspartate Amino Transferase 47 U/L (5-31); Bilirubin Total 0.8 mg/dL (0.0-1.0); Blood Urea Nitrogen 29 mg/dL (9-16); Calcium 8.7 mg/dL (8.4-10.2); Carbon Dioxide 19 mmol/L (22-29); Chloride 118 mmol/L (96-108); Creatinine Clr Calc Pharmacy 26.9; Estimated Glomerular Filt Rate 28; Glucose Fasting 114 mg/dL (60-99); Potassium 4.5 mmol/L (3.3-5.1); Sodium 145 mmol/L (135-145); Total Protein 5.4 g/dL (6.5-8.0)
[2021-07-04 07:43] LABS: Glucose, Whole Blood 80 mg/dL (60-115)
[2021-07-04 07:45] VITALS: BP 144/68; PULSE 86; RESP 17; TEMP 37.1; O2SAT 99
[2021-07-04] MEDS: Fluticasone Propionate 100 MCG BLST.W.DEV 2 PUFF INHALE (07:48)
[2021-07-04 07:49] VITALS: PULSE 86; RESP 18; O2SAT 99
[2021-07-04] MEDS: Insulin Lispro 100 UNIT/ML 3 ML VIAL 6 UNIT SUBCUT (08:10)
[2021-07-04] MEDS: 0.9 % Sodium Chloride Flush 3 ML SYRINGE IVFLUSH (08:10)
[2021-07-04] MEDS: Lipase/Prot/Amylase 24/76/120K 1 CAP CAPSULE.DR PO (08:11)
[2021-07-04] MEDS: Cyanocobalamin (Vitamin B-12) 1,000 MCG/ML VIAL 1000 MCG IM (08:11)
[2021-07-04] MEDS: carvediloL 3.125 MG TABLET PO (08:11)
[2021-07-04] MEDS: Loratadine 10 MG TABLET PO (08:11)
[2021-07-04] MEDS: Folic Acid 1 MG TABLET PO (08:11)
[2021-07-04] MEDS: Aspirin Enteric Coated 81 MG TABLET.DR PO (08:11)
[2021-07-04] MEDS: Ketotifen Fumarate 0.025% Oph 5 ML DRPBTL 1 DROP EYE-BOTH (08:12)
[2021-07-04] MEDS: Fluticasone Propionate Nasal 16 GM SPRAY 2 SPRAY NOSTRIL-B (08:12)
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
[2021-07-04 11:39] LABS: Glucose, Whole Blood 125 mg/dL (60-115)
[2021-07-04] MEDS: Heparin Sodium,Porcine 5,000 UNIT/ML VIAL 5000 UNIT SUBCUT (11:51)
[2021-07-04 12:00] VITALS: BP 123/58; PULSE 74; RESP 18; TEMP 36.7; O2SAT 100
[2021-07-04 12:02] VITALS: BMI 27.1
--- NOTE | 2021-07-04 12:08 | MHC.CLN ---
PT IS MODERATELY MALNOURISHED PT WITH 19% NON-SIGNIFICANT WT LOSS X 16 MONTHS PT REPORTS DEPRESSION R/T RECENT LOSS OF AND NEW LIVING SITUATION WITH CHRONIC POOR PO INTAKE. PREVIOUS WT HX REVEALS 80.7KG (02/2020) DIET RX: 1800DM-RECOMMEND ADDING 2GM NA R/T HX CAD/CHF/CKD WILL START GLUCERNA BID TO INCREASE KCALS R/T RECENT POOR PO INTAKE AND WT LOSS SUPP TO PROVIDE 474KCALS, 20G PROTEIN MONITOR PO INTAKE CLOSELY SEE FULL CLINICAL NUTRITION ASSESSMENT
--- NOTE | 2021-07-04 12:51 | MHC.CM.PN ---
nurse correctional casework specialist note met with patient with [facility] charlie interperter. patient ia alert and orientated , she lives along , she has a health care proxy at home , gilda delroy requested copy be brought to the hospital to have on file . she reported to me she is active and independent in all adls and mobility with out any sevrices or medical devices , she reported she did receive the moderna vacine x3 , had previous hx of high etoh intake but quite over 4 years ago denies any drug history , her daughter drives her to her medical appointments . and transportation home, she was admitted for weighhjt loss for which her pcp says abut 20-25 lbs. she denies any change in eating and denies any financial burdens regarding any groceries. per discharge planning rounds , patient may possibly be d/c home later today no services discharge plan home with no services pcp thomas bolaños transportation family
--- NOTE | 2021-07-04 13:46 | P.DS_ITS ---
DS: Providers Provider Date of Service: 07/04/21 Date of admission: 07/01/21 22:34 Date of discharge: 07/04/21 Primary care physician: Myra Persaud DO Consults: 07/02/21 10:01 Consult to Hematology / Oncology Routine Consulting Provider: [facility] Oncology/Hematology Reason for consultation: Hypoproliferative normocytic anemia 07/02/21 10:08 Consult to Care Team Routine Comment: Reason for consultation: depression, no SI DS: Diagnosis Discharge Diagnosis (1) Normocytic anemia: Status: Acute (2) Acute kidney injury superimposed on CKD: Status: Acute (3) DMII (diabetes mellitus, type 2): Status: Acute DS: Summary Hospital Course Hospital Course: 65-year-old female with past medical history of chronic anemia, history of asthma, CAD, CHF, hyperlipidemia, GERD, hypertension, CKD, diabetes, who presents to the hospital with findings of abnormal labs.? Patient reports that she did routine labs for her PCP due to weight loss for the past 1 year and was found to be anemic and have high potassium as well as abnormal kidney function.? Patient reports that she has been very depressed due to the of her and living situation.? She lives with her daughter and has been treated poorly by her son-in-law and therefore has not been eating or drinking well due to this depression and treatment.? She reports chronic right leg pain that is been going on for 5 months otherwise denies any chest pain, no shortness of breath, no abdominal pain nausea or vomiting, no diarrhea constipation, ? She reports urinary frequency, no dysuria or urgency, and no lower extremity edema.? No headache or change in vision.? No dizziness.? Patient does denies any melena, and no hematemesis hematochezia or hemoptysis. Hospital course Patient admitted to the hospital on IV fluids and a consult was placed to Hematology. Please see Dr. Buck notes for details. Anemia workup was ini tiated by Dr. Buck and at her recommendation the patient received 1 unit packed red cells. Her baseline creatinine was up however did respond to fluids. At this point in time the patient is anxious for discharge and can be followed up by Renal as an outpatient. He was also noted that she had a UTI which grow out Klebsiella pneumonia; she was treated with ceftriaxone in-house and now be transitioned over to Ceftin to complete her therapy. At this point time she is medically acceptable for discharge Time Spent with Patient Time attestation: Total time spent providing and/or coordinating discharge services: Discharge coordination time: Greater than 30 minutes Quality: Safe Use of Opioids Does Pt have an Active Cancer Diagnosis on the Problem List?: No Quality: Stroke Does the patient have a stroke diagnosis?: No Physical Exam Vital Signs: Vital Signs: Last Vital Signs Temp 98.1 F 07/04/21 12:00 Pulse 74 07/04/21 12:00 Resp 18 07/04/21 12:00 BP 123/58 L 07/04/21 12:00 Pulse Ox 100 07/04/21 12:00 BMI result Body Mass Index 27.1 Const: Other: No acute distress Resp: Other: Clear to auscultation bilaterally no rales rhonchi wheezes Cardio: Other: No S4; positive S1-S2; no S3 murmurs rubs or gallops GI: Other: Soft nontender nondistended with normoactive bowel sounds Extrem: Other: No edema bilaterally DS: Data Data Completed and Pending Labs on day of discharge: Laboratory Results - last 24 hr 07/02/21 07/03/21 07/03/21 11:09 06:28 06:28 WBC RBC Hgb Hct MCV MCH MCHC RDW Plt Count MPV Immature Gran % (Auto) Neut % (Auto) Lymph % (Auto) [place] % (Auto) Eos % (Auto) Baso % (Auto) Lymph # (Auto) [place] # (Auto) Eos # (Auto) Baso # (Auto) Abs Immat Gran (auto) Absolute Neuts (auto) Absolute Nucleated RBC Nucleated RBC % (auto) Sodium Potassium Chloride Carbon Dioxide Anion Gap BUN Creatinine Estim Creat Clear Calc Estimated GFR POC Glucose Fasting Glucose Calcium Total Bilirubin AST ALT Alkaline Phosphatase Total Protein Albumin Carcinoembryonic Ag 7.80 Hep B Core Total Ab Reactive Blood Type O Negative Antibody Screen NEGATIVE Crossmatch See Detail 07/03/21 07/03/21 07/04/21 16:48 19:44 05:54 WBC 7.5 RBC 2.64 L Hgb 7.7 L Hct 24.8 L MCV 93.9 MCH 29.2 MCHC 31.0 RDW 13.8 Plt Count 155 L MPV 10.8 Immature Gran % (Auto) 0.3 Neut % (Auto) 45.5 Lymph % (Auto) 40.2 H [place] % (Auto) 9.2 Eos % (Auto) 4.7 H Baso % (Auto) 0.1 Lymph # (Auto) 3.0 [place] # (Auto) 0.7 Eos # (Auto) 0.4 Baso # (Auto) 0.0 Abs Immat Gran (auto) 0.02 Absolute Neuts (auto) 3.4 Absolute Nucleated RBC 0.000 Nucleated RBC % (auto) 0.0 Sodium Potassium Chloride Carbon Dioxide Anion Gap BUN Creatinine Estim Creat Clear Calc Estimated GFR POC Glucose 213 H 248 H Fasting Glucose Calcium Total Bilirubin AST ALT Alkaline Phosphatase Total Protein Albumin Carcinoembryonic Ag Hep B Core Total Ab Blood Type Antibody Screen Crossmatch 07/04/21 07/04/21 07/04/21 05:55 07:14 11:28 WBC RBC Hgb Hct MCV MCH MCHC RDW Plt Count MPV Immature Gran % (Auto) Neut % (Auto) Lymph % (Auto) [place] % (Auto) Eos % (Auto) Baso % (Auto) Lymph # (Auto) [place] # (Auto) Eos # (Auto) Baso # (Auto) Abs Immat Gran (auto) Absolute Neuts (auto) Absolute Nucleated RBC Nucleated RBC % (auto) Sodium 145 Potassium 4.5 Chloride 118 H Carbon Dioxide 19 L Anion Gap 13 BUN 29 H Creatinine 1.83 H Estim Creat Clear Calc 26.9 Estimated GFR 28 POC Glucose 80 125 H Fasting Glucose 114 H Calcium 8.7 Total Bilirubin 0.8 AST 47 H D ALT 70 H Alkaline Phosphatase 106 Total Protein 5.4 L Albumin 3.1 L Carcinoembryonic Ag Hep B Core Total Ab Blood Type Antibody Screen Crossmatch Preliminary micro results at discharge 07/01/21 22:28 Blood Culture - Preliminary Blood - Venous No growth after 48 hours. 07/01/21 22:28 Blood Culture - Preliminary Blood - Venous No growth after 48 hours. Discharge Plan Discharge Patient Disposition: Home Health Service Discharge Diagnosis: Anemia of chronic disease Referrals: Myra Persaud DO [Primary Care Provider] - 1 Week Discharge Medications: New cefuroxime axetil 500 mg tablet 500 mg PO BID 7 Days Qty: 14 0RF Continued Creon 24,000-76,000 -120,000 unit capsule,delayed release(DR/EC) 1 cap PO TID 30 Days Qty: 90 4RF Rx Instructions: administer with meals and/or snacks aspirin 81 mg Tablet,Delayed Release (Dr/Ec) 81 mg PO DAILY 0RF albuterol sulfate 90 mcg/actuation Hfa Aerosol Inhaler 2 puff INHALATION Q4-6H PRN (Reason: Shortness Of Breath Or Wheezing) 0RF metformin 500 mg Tablet 1,000 mg PO BID 0RF lisinopril 20 mg Tablet 20 mg PO DAILY 0RF carvedilol 3.125 mg Tablet 3.125 mg PO BID 0RF folic acid 1 mg Tablet 1 mg PO DAILY 0RF ergocalciferol (vitamin D2) [Vitamin D2] 1,250 mcg (50,000 unit) Capsule 1,250 mcg PO MO 0RF Lantus U-100 Insulin 100 unit/mL solution 20 unit subcut BEDTIME 0RF atorvastatin 80 mg tablet 80 mg PO BEDTIME 0RF calcium carbonate [Calcium Antacid] 200 mg calcium (500 mg) tablet,chewable 1 tab PO BID 0RF ketotifen fumarate 0.025 % (0.035 %) drops 1 drp ophthalmic (eye) BID 0RF acetaminophen 650 mg tablet extended release 1 tab PO Q8H PRN (Reason: fever) 0RF baclofen 10 mg tablet 1 tab PO TID PRN (Reason: muscle spasm) 0RF pantoprazole 40 mg tablet,delayed release (DR/EC) 1 tab PO BID 0RF gabapentin 100 mg capsule 1 cap PO BEDTIME 0RF fluticasone propionate 50 mcg/actuation [place],Suspension 2 spray INTRANASAL DAILY 0RF Rx Instructions: administer into each nostril loratadine 10 mg Tablet 10 mg PO DAILY 0RF Flovent HFA 110 mcg/actuation HFA aerosol inhaler 2 puff inhalation BID 0RF insulin lispro [Humalog KwikPen Insulin] 100 unit/mL insulin pen 6 unit subcut DAILY@0730 0RF insulin lispro [Humalog KwikPen Insulin] 100 unit/mL insulin pen 12 unit subcut DAILY@1630 0RF repaglinide 1 mg tablet 1 tab PO TID 0RF Discharge Orders: Discharge Order (Routine); Ordered 07/04/21 Ordered By: Carlos Banuelos Diet: advance to usual diet Activity on Discharge: As tolerated Stand Alone Forms: Patient Portal Discharge page Care Plan Goals: Complete course of Ceftin to treat urinary tract infection Health Concerns: Follow-up with Dr. Buck for further workup and treatment of your anemia Plan of Treatment: Resume all medicines as before you into the hospital Assessment: Follow-up with PCP in 2 weeks.
[2021-07-05 14:21] LABS: IgA 138 mg/dL (70-320); IgG 865 mg/dL (600-1540); IgM 98 mg/dL (50-300)
[2021-07-05 22:06] LABS: Prot Elec - Albumin 3.3 g/dL (3.8-4.8); Prot Elec - Alpha1 0.3 g/dL (0.2-0.3); Prot Elec - Alpha2 0.7 g/dL (0.5-0.9); Prot Elec - Beta 1 0.3 g/dL (0.4-0.6); Prot Elec - Beta 2 0.3 g/dL (0.2-0.5); Prot Elec - Gamma 0.9 g/dL (0.8-1.7); Prot Elec - Total Protein 5.7 g/dL (6.1-8.1)
[2021-07-07 05:37] LABS: Hepatitis B Core Antibody IgM NON-REACTIVE (NON-REACTIVE)
[2021-07-08 14:05] LABS: IgA 150 mg/dL (70-320); IgG 883 mg/dL (600-1540); IgM 102 mg/dL (50-300)
[2021-07-08 14:51] LABS: Kappa, Serum 206 mg/dL (176-443); Kappa/Lambda Ratio, Serum 1.62 (1.29-2.55); Lambda, Serum 127 mg/dL (91-240)
== END 2021-07-04 15:24 | disposition home or self-care (01) | DRG 469 ==
LOC: HO.ED 19:41 → HO.EDOVER 22:56 → HO.S3 07-03 14:25
PROVIDERS: Hospitalist; Internal Medicine Medical Oncology; Physician Assistant Medical; Admitting Provider Internal Medicine; Emergency Provider Emergency Medicine; PCP Family Medicine; Visit Provider Family Medicine
DX: N17.9 Acute kidney failure, unspecified (principal); D61.89 Other specified aplastic anemias and other bone marrow failure syndromes; E11.22 Type 2 diabetes mellitus with diabetic chronic kidney disease; I13.0 Hypertensive heart and chronic kidney disease with heart failure and stage 1 through stage 4 chronic kidney disease, or unspecified chronic kidney disease; I50.9 Heart failure, unspecified; D63.1 Anemia in chronic kidney disease; E87.5 Hyperkalemia; E11.40 Type 2 diabetes mellitus with diabetic neuropathy, unspecified; B96.1 Klebsiella pneumoniae [K. pneumoniae] as the cause of diseases classified elsewhere; F32.A Depression, unspecified; N18.30 Chronic kidney disease, stage 3 unspecified; G47.33 Obstructive sleep apnea (adult) (pediatric); I25.10 Atherosclerotic heart disease of native coronary artery without angina pectoris; N39.0 Urinary tract infection, site not specified; G89.29 Other chronic pain; R74.01 Elevation of levels of liver transaminase levels; Z20.822 Contact with and (suspected) exposure to COVID-19; Z79.4 Long term (current) use of insulin; Z79.82 Long term (current) use of aspirin; Z79.84 Long term (current) use of oral hypoglycemic drugs; Z79.899 Other long term (current) drug therapy
CPT/HCPCS: 36415; 76705; 80048; 80053; 81001; 82272; 82378; 82607; 82728; 82746; 82784; 82947; 83036; 83540; 83605; 83615; 83883; 84165; 85025; 85027; 85045; 86334; 86704; 86705; 86706; 86803; 86850; 86900; 86901; 86923; 87040; 87086; 87088; 87186; 87340; 87635; 93005; 94640; 94644; 96361; 96374; 99218; 99285; 99291; J0696; P9016

== ENCOUNTER 2021-07-28 06:35 | Inpatient (IN) | payer MEDICAID, SELFPAY ==
[2021-07-28] VITALS (14 sets, daily range): BP systolic 103–130; BP diastolic 44–65; PULSE 91–99; RESP 13–24; TEMP 36.7–36.9; O2SAT 98–100; BMI 25.0
--- NOTE | ~2021-07-28 | XR_ITS ---
EXAMINATION: XR CHEST CLINICAL INFORMATION: Chest pain COMPARISON: None TECHNIQUE: Frontal view of the chest was obtained. FINDINGS: The lungs are well-expanded and clear acute pneumonic process. There are new surgical aristeo are artifact overlying the left medial lung apex. Heart size is enlarged. The pulmonary vascularity is normal. No gross bony abnormality seen.. XR/XR chest 1V IMPRESSION: Mild cardiomegaly. No acute pulmonary process
--- NOTE | ~2021-07-28 | CT_ITS ---
EXAMINATION: CT ABDOMEN AND PELVIS WITHOUT CONTRAST CLINICAL INFORMATION: Abdominal pain COMPARISON: CT abdomen pelvis 07/27/2020 TECHNIQUE: Multidetector volumetric imaging was performed from the superior aspect of the liver through the pubic symphysis. Sagittal and coronal reformatted images were obtained on the technologist's workstation. This CT examination was performed using dose optimization techniques as appropriate, variously including the following: *Automated exposure control *Adjustment of mA and/or kV according to patient size (this includes techniques or standardized protocols for targeted exams where dose is matched to indication/reason for exam; i.e. extremities or head) *Use of iterative reconstruction technique DLP: 496 mGy-cm FINDINGS: LUNG BASES: Unremarkable. ABDOMINAL AND PELVIC WALL: Unremarkable. LIVER AND BILIARY TREE: Unremarkable. GALLBLADDER: Status post cholecystectomy. PANCREAS: Innumerable coarse calcifications involving the atrophic pancreas compatible with sequelae of chronic pancreatitis. Pancreatic duct is difficult to definitively discern in the absence of contrast, however is favored to be dilated similar to prior. SPLEEN: Unremarkable. ADRENAL GLANDS: Unremarkable. KIDNEYS AND URETERS: Unremarkable. GASTROINTESTINAL TRACT: Colonic diverticulosis without evidence of diverticulitis. Multiple loops of small bowel are mildly thick-walled. Normal appendix. VASCULAR: Unremarkable. LYMPH NODES/PERITONEUM: No lymphadenopathy. FREE FLUID: None. BLADDER: Steel catheter decompresses the bladder. Foci of gas within the bladder likely related to Steel catheter placement. PELVIC VISCERA: Myomatous uterus. OSSEOUS STRUCTURES: Serpiginous sclerosis involving the bilateral femoral heads which may reflect sequelae of avascular necrosis. CT/CT abdomen pelvis wo con IMPRESSION: Multiple loops of small bowel appear mildly thick-walled which can be seen in the setting of enteritis. Innumerable coarse calcifications involving the atrophic pancreas compatible with sequelae of chronic pancreatitis. Pancreatic duct is difficult to definitively discern in the absence of contrast, however is favored to be dilated similar to prior. Serpiginous sclerosis involving the bilateral femoral heads which may reflect sequelae of avascular necrosis.
--- NOTE | ~2021-07-28 | US_ITS ---
EXAMINATION: US RETROPERITONEAL LIMITED (RENAL ONLY) CLINICAL INFORMATION: acute renal failure. COMPARISON: 07/02/2021 TECHNIQUE: Real-time imaging of the kidneys. FINDINGS: RIGHT KIDNEY: 10.8 x 5.6 x 5.8 cm (SAG x AP x TRV). The kidney is normal in size, contour, and echogenicity. Renal cortical thickness is normal. No calculi or focal parenchymal lesions. Fullness of the right renal pelvis is due to an extrarenal pelvis and is consistent with prior imaging. No hydronephrosis. LEFT KIDNEY: 12.8 x 5.2 x 4.7 cm (SAG x AP x TRV). The kidney is normal in size, contour, and echogenicity. Renal cortical thickness is normal. No calculi or focal parenchymal lesions. No hydronephrosis. US/US renal BI IMPRESSION: No acute sonographic findings at the kidneys. No evidence of obstructive uropathy..
--- NOTE | 2021-07-28 06:50 | ED.CHESTPAIN ---
HPI - Chest Pain General Chief Complaint: Chest Pain Stated Complaint: Chest pain Time Seen by Provider: 07/28/21 06:50 Source: patient and historic interpreter Mode of arrival: EMS Limitations: no limitations History of Present Illness MD complaint: chest pain (nausea, malaise, doesn't feel well, no energy, headaches) Onset (ago): day(s) (2) Timing of current episode: constant Prior episodes: Yes Onset: during rest Pain location: substernal Pain radiation: none Severity: mild Quality: aching Relieving factors: nothing Exacerbating factors: movement Context: recent illness (overall doesn't feel well) Associated symptoms: nausea and other (headaches, body aches, malaise, poor PO intake for 2 days) Treatment prior to arrival: none Related Data Home Medications Medication Instructions Recorded Confirmed albuterol sulfate 90 mcg/actuation 2 puff INHALATION Q4-6H PRN 03/14/20 07/28/21 aerosol inhaler aspirin 81 mg tablet,delayed 81 mg PO DAILY 03/14/20 07/28/21 release carvedilol 3.125 mg tablet 3.125 mg PO BID 03/14/20 07/28/21 ergocalciferol (vitamin D2) 1,250 1,250 mcg PO MO 03/14/20 07/28/21 mcg (50,000 unit) capsule (Vitamin D2) folic acid 1 mg tablet 1 mg PO DAILY 03/14/20 07/28/21 lisinopril 20 mg tablet 20 mg PO BEDTIME 03/14/20 07/28/21 metformin 500 mg tablet 1,000 mg PO BID 03/14/20 07/28/21 insulin glargine 100 unit/mL 15 unit SUBCUT DAILY 07/27/20 07/28/21 subcutaneous solution (Lantus U-100 Insulin) atorvastatin 80 mg tablet 80 mg PO BEDTIME 07/28/20 07/28/21 calcium carbonate 200 mg calcium 1 tab PO BID PRN 07/28/20 07/28/21 (500 mg) chewable tablet (Calcium Antacid) acetaminophen 650 mg 1 tab PO Q8H PRN 07/01/21 07/28/21 tablet,extended release baclofen 10 mg tablet 1 tab PO TID PRN 07/01/21 07/28/21 fluticasone propionate 110 2 puff INHALATION BID 07/01/21 07/28/21 mcg/actuation HFA aerosol inhaler (Flovent HFA) gabapentin 100 mg capsule 1 cap PO BEDTIME 07/01/21 07/28/21 insulin lispro 100 unit/mL 0 unit SUBCUT BID@0730,1130 07/01/21 07/28/21 subcutaneous pen (Humalog KwikPen (U-100) Insulin) ketotifen fumarate 0.025 % (0.035 1 drp OPHTHALMIC (EYE) BID 07/01/21 07/28/21 %) eye drops loratadine 10 mg tablet 10 mg PO DAILY 07/01/21 07/28/21 pantoprazole 40 mg tablet,delayed 1 tab PO BID 07/01/21 07/28/21 release lidocaine 5 % topical patch 1 patch TOPICAL DAILY 07/28/21 07/28/21 sduivo-[id number]-qrwaqwu 1 cap PO TIDWM 07/28/21 07/28/21 24,000-76,000-120,000 unit capsule,delayed rel (Creon) Allergies Allergy/AdvReac Type Severity Reaction Status Date / Time simvastatin [SIMVASTATIN] AdvReac Unknown Unknown Verified 11/08/20 10:18 Review of Systems Review of Systems: Constitutional : No Weight loss, No Fever, No Chills, pos fatigue, pos malaise ENT/Mouth : No sore throat, No Rhinorrhea Eyes: No Eye Pain, No Swelling Cardiovascular : pos Chest Pain, no SOB, no Dyspnea on Exertion, No Orthopnea, No Edema, No Palpitations Respiratory : No Cough, No Sputum Gastrointestinal : pos Nausea, No Vomiting, No Diarrhea, No abdominal Pain, No Hematochezia, No Melena Genitourinary : No Dysuria, No Urinary Frequency Musculoskeletal : No joint pain, pos Myalgias, No Joint Swelling Skin : No Skin Lesions, No rash Neuro : pos Weakness, No Numbness, No Dizziness, pos Headache Psych : No Anxiety/Panic, No Depression Heme/Lymph: No Bruising, No Lymphadenopathy Endocrine : No Polyuria, No Polydipsia All other systems reviewed and are negative [facility] Past Medical History Attestation statement: The following information was validated with the patient. Medical History Anemia Ascending aorta dilatation Asthma CAD (coronary artery disease) CHF (congestive heart failure) Elevated cholesterol Fatty liver GERD (gastroesophageal reflux disease) History of alcohol dependence HTN (hypertension) Hx of acute pancreatitis Hx of acute renal failure Hx of diabetes with ketoacidosis Hx of non-ST elevation myocardial infarction (NSTEMI) IDDM (insulin dependent diabetes mellitus) Non-ischemic cardiomyopathy Sleep apnea Surgical History History of cardiac cath History of esophagogastroduodenoscopy (EGD) History of partial hysterectomy Hx of cholecystectomy Hx of colonoscopy Hx of lithotripsy Family History Family History Father History of heart attack Mother No problems noted. Social History Social History Household Members: None Housing: Apartment Do you presently have visiting nurse or other home services: No Alcohol intake: never Patient Tobacco Use Status: Never used Tobacco Advance Directives: Yes Advance Directives on File: Yes Advance Directives Date on File: 07/02/21 service: No Current occupational status: retired Physical Exam Vital Signs: Vital Signs: Last Vital Signs Temp 98.5 F 07/28/21 07:50 Pulse 99 07/28/21 10:38 Resp 24 H 07/28/21 10:38 BP 118/52 L 07/28/21 10:38 Pulse Ox 99 07/28/21 07:50 BMI result Body Mass Index 25.0 Appearance: Alert. Oriented X3. No acute distress. Eyes: Pupils equal, round and reactive to light. ENT: Pharynx normal. Neck: Normal inspection. Neck supple. CVS: Normal heart rate and rhythm. Pulses normal. Respiratory: No respiratory distress. Breath sounds normal. Abdomen: Soft and non-tender. Skin: Skin warm and dry. pale skin color. Normal skin turgor. Extremities: No lower extremity edema. No calf ttp Neuro: Oriented X 3. No motor deficit. No sensory deficit. Course Course Course Narrative: lokelma, HCO3, calcium, insulin, dextrose, IVF, VBG, myrick ordered STAT Dr. Santiago aware will recheck K - hydrate patient repeat K IVF x 2L, dextrose with 150meq HCO3 ordered per renal making good UOP repeat K 1030am repeat lokelma per Dr. Santiago 10 - K down to 6.4 patient still acidotic mentation and VS stable clinically looks well updated repeat labs with renal, IVF infusing, patient has made 400 UOP will admit to ICU at this time MDM - Chest Pain MDM Narrative Medical decision making narrative: 65 yo female with hx of DM, HTN, ANGELY, anemia, UTIs, depression, here with c/o 2 days of overall not feeling well has no energy c/o headaches, nausea, body aches, chest pain denies fevers, cough - at this time will need labs, EKG, troponin, gentle fluids, very atypical for ACS, denies v/d but has had nausea - lytes ordered, has no abdominal pain - dispo per results and findings. Lab Data Result diagrams: 07/28/21 07:34 07/28/21 11:54 Labs: Lab Results 07/28/21 07/28/21 07/28/21 Range/Units 07:34 07:34 07:34 WBC 10.8 (4.8-10.8) X10*3/uL RBC 3.10 L (4.20-5.50) X10*6/uL Hgb 9.0 L (12.0-16.0) g/dl Hct 29.9 L D (37.0-47.0) % MCV 96.5 (80.0-98.0) fL MCH 29.0 (27.0-33.0) pg MCHC 30.1 L (31.0-35.0) g/dl RDW 13.8 (11.0-16.0) % Plt Count 188 (160-400) X10*3/uL MPV 10.1 (9.4-12.3) fL Immature Gran % (Auto) 0.3 (0.0-0.4) % Neut % (Auto) 56.1 (45-73) % Lymph % (Auto) 34.2 (20-40) % Letcher % (Auto) 5.9 (2-11) % Eos % (Auto) 3.2 (0-4) % Baso % (Auto) 0.3 (0-2) % Lymph # (Auto) 3.7 (1.2-4.9) X10*3/uL Letcher # (Auto) 0.6 (0.1-1.2) X10*3/uL Eos # (Auto) 0.4 (0.0-0.4) X10*3/uL Baso # (Auto) 0.0 (0.0-0.2) X10*3/uL Abs Immat Gran (auto) 0.03 (0.00-0.03) X10*3/uL Absolute Neuts (auto) 6.1 (2.0-8.3) x10*3/uL Absolute Nucleated RBC 0.000 (0.0-0.012) X10*3/uL Nucleated RBC % (auto) 0.0 (0.0-0.2) /100WBC PT 11.9 (9.9-13.0) SEC INR 1.0 (0.9-1.1) VBG pH (7.32-7.43) VBG pCO2 mmHg VBG pO2 mmHg VBG HCO3 (22-26) mmol/L VBG O2 Saturation % VBG Base Excess mmol/L Sodium 142 (135-145) mmol/L Potassium 7.1 H* D (3.3-5.1) mmol/L Chloride 126 H (96-108) mmol/L Carbon Dioxide 6 L* D (22-29) mmol/L Anion Gap 17 (12-20) BUN 82 H D (9-16) mg/dL Creatinine 3.57 H (0.5-1.4) mg/dL Estim Creat Clear Calc 14.3 Estimated GFR 13 POC Glucose (60-115) mg/dL Random Glucose 90 (60-115) mg/dL Lactic Acid (0.5-2.0) mmol/L Calcium 8.9 (8.4-10.2) mg/dL Magnesium 2.2 (1.6-2.6) mg/dL Total Bilirubin 0.3 (0.0-1.0) mg/dL Direct Bilirubin < 0.2 (0.0-0.5) mg/dL AST 70 H (5-31) U/L ALT 99 H (0-31) U/L Alkaline Phosphatase 159 H D (39-117) U/L Total Creatine Kinase 2015 H (26-140) U/L Troponin I High Sens (<3.5-17.0) ng/L B-Natriuretic Peptide (<100) pg/mL Total Protein 6.5 D (6.5-8.0) g/dL Albumin 3.7 (3.5-5.0) g/dL Lipase 67 (8-78) U/L Urine Color Urine Appearance Urine pH (5.0-8.0) Ur Specific Robinson (1.005-1.025) Urine Protein (NEG-TRACE) MG/DL Urine Glucose (UA) (NEG) MG/DL Urine Ketones (NEG) MG/DL Urine Blood (NEG) Urine Nitrite (NEG) Ur Leukocyte Esterase (NEG) Urine RBC (0) /HPF Urine WBC (0-4) /HPF Ur Squamous Epith Cells /LPF Amorphous Sediment /LPF Urine Bacteria /LPF COVID-19 (ISABELLE) (Negative) COVID-19 Clin Com Influenza Type A (SHAE) (Negative) Influenza Type B (SHAE) (Negative) Influenza A & B Note 07/28/21 07/28/21 07/28/21 Range/Units 07:34 07:34 07:34 WBC (4.8-10.8) X10*3/uL RBC (4.20-5.50) X10*6/uL Hgb (12.0-16.0) g/dl Hct (37.0-47.0) % MCV (80.0-98.0) fL MCH (27.0-33.0) pg MCHC (31.0-35.0) g/dl RDW (11.0-16.0) % Plt Count (160-400) X10*3/uL MPV (9.4-12.3) fL Immature Gran % (Auto) (0.0-0.4) % Neut % (Auto) (45-73) % Lymph % (Auto) (20-40) % Letcher % (Auto) (2-11) % Eos % (Auto) (0-4) % Baso % (Auto) (0-2) % Lymph # (Auto) (1.2-4.9) X10*3/uL Letcher # (Auto) (0.1-1.2) X10*3/uL Eos # (Auto) (0.0-0.4) X10*3/uL Baso # (Auto) (0.0-0.2) X10*3/uL Abs Immat Gran (auto) (0.00-0.03) X10*3/uL Absolute Neuts (auto) (2.0-8.3) x10*3/uL Absolute Nucleated RBC (0.0-0.012) X10*3/uL Nucleated RBC % (auto) (0.0-0.2) /100WBC PT (9.9-13.0) SEC INR (0.9-1.1) VBG pH (7.32-7.43) VBG pCO2 mmHg VBG pO2 mmHg VBG HCO3 (22-26) mmol/L VBG O2 Saturation % VBG Base Excess mmol/L Sodium (135-145) mmol/L Potassium (3.3-5.1) mmol/L Chloride (96-108) mmol/L Carbon Dioxide (22-29) mmol/L Anion Gap (12-20) BUN (9-16) mg/dL Creatinine (0.5-1.4) mg/dL Estim Creat Clear Calc Estimated GFR POC Glucose (60-115) mg/dL Random Glucose (60-115) mg/dL Lactic Acid (0.5-2.0) mmol/L Calcium (8.4-10.2) mg/dL Magnesium (1.6-2.6) mg/dL Total Bilirubin (0.0-1.0) mg/dL Direct Bilirubin (0.0-0.5) mg/dL AST (5-31) U/L ALT (0-31) U/L Alkaline Phosphatase (39-117) U/L Total Creatine Kinase (26-140) U/L Troponin I High Sens 5.3 (<3.5-17.0) ng/L B-Natriuretic Peptide 56 (<100) pg/mL Total Protein (6.5-8.0) g/dL Albumin (3.5-5.0) g/dL Lipase (8-78) U/L Urine Color Urine Appearance Urine pH (5.0-8.0) Ur Specific Robinson (1.005-1.025) Urine Protein (NEG-TRACE) MG/DL Urine Glucose (UA) (NEG) MG/DL Urine Ketones (NEG) MG/DL Urine Blood (NEG) Urine Nitrite (NEG) Ur Leukocyte Esterase (NEG) Urine RBC (0) /HPF Urine WBC (0-4) /HPF Ur Squamous Epith Cells /LPF Amorphous Sediment /LPF Urine Bacteria /LPF COVID-19 (ISABELLE) Negative (Negative) COVID-19 Clin Com See Note Influenza Type A (SHAE) (Negative) Influenza Type B (SHAE) (Negative) Influenza A & B Note 07/28/21 07/28/21 07/28/21 Range/Units 07:35 09:47 09:47 WBC (4.8-10.8) X10*3/uL RBC (4.20-5.50) X10*6/uL Hgb (12.0-16.0) g/dl Hct (37.0-47.0) % MCV (80.0-98.0) fL MCH (27.0-33.0) pg MCHC (31.0-35.0) g/dl RDW (11.0-16.0) % Plt Count (160-400) X10*3/uL MPV (9.4-12.3) fL Immature Gran % (Auto) (0.0-0.4) % Neut % (Auto) (45-73) % Lymph % (Auto) (20-40) % Letcher % (Auto) (2-11) % Eos % (Auto) (0-4) % Baso % (Auto) (0-2) % Lymph # (Auto) (1.2-4.9) X10*3/uL [place]cher # (Auto) (0.1-1.2) X10*3/uL Eos # (Auto) (0.0-0.4) X10*3/uL Baso # (Auto) (0.0-0.2) X10*3/uL Abs Immat Gran (auto) (0.00-0.03) X10*3/uL Absolute Neuts (auto) (2.0-8.3) x10*3/uL Absolute Nucleated RBC (0.0-0.012) X10*3/uL Nucleated RBC % (auto) (0.0-0.2) /100WBC PT (9.9-13.0) SEC INR (0.9-1.1) VBG pH (7.32-7.43) VBG pCO2 mmHg VBG pO2 mmHg VBG HCO3 (22-26) mmol/L VBG O2 Saturation % VBG Base Excess mmol/L Sodium (135-145) mmol/L Potassium (3.3-5.1) mmol/L Chloride (96-108) mmol/L Carbon Dioxide (22-29) mmol/L Anion Gap (12-20) BUN (9-16) mg/dL Creatinine (0.5-1.4) mg/dL Estim Creat Clear Calc Estimated GFR POC Glucose (60-115) mg/dL Random Glucose (60-115) mg/dL Lactic Acid 2.7 H* (0.5-2.0) mmol/L Calcium (8.4-10.2) mg/dL Magnesium (1.6-2.6) mg/dL Total Bilirubin (0.0-1.0) mg/dL Direct Bilirubin (0.0-0.5) mg/dL AST (5-31) U/L ALT (0-31) U/L Alkaline Phosphatase (39-117) U/L Total Creatine Kinase (26-140) U/L Troponin I High Sens (<3.5-17.0) ng/L B-Natriuretic Peptide (<100) pg/mL Total Protein (6.5-8.0) g/dL Albumin (3.5-5.0) g/dL Lipase (8-78) U/L Urine Color YELLOW Urine Appearance HAZY Urine pH 5.5 (5.0-8.0) Ur Specific Robinson 1.025 (1.005-1.025) Urine Protein 1+ H (NEG-TRACE) MG/DL Urine Glucose (UA) NEG (NEG) MG/DL Urine Ketones NEG (NEG) MG/DL Urine Blood 3+ H (NEG) Urine Nitrite NEG (NEG) Ur Leukocyte Esterase NEG (NEG) Urine RBC 1-4 (0) /HPF Urine WBC 1-4 (0-4) /HPF Ur Squamous Epith Cells 1+ /LPF Amorphous Sediment 2+ /LPF Urine Bacteria 1+ /LPF COVID-19 (ISABELLE) (Negative) COVID-19 Clin Com Influenza Type A (SHAE) Negative (Negative) Influenza Type B (SHAE) Negative (Negative) Influenza A & B Note See Note 07/28/21 07/28/21 07/28/21 Range/Units 09:47 09:53 11:54 WBC (4.8-10.8) X10*3/uL RBC (4.20-5.50) X10*6/uL Hgb (12.0-16.0) g/dl Hct (37.0-47.0) % MCV (80.0-98.0) fL MCH (27.0-33.0) pg MCHC (31.0-35.0) g/dl RDW (11.0-16.0) % Plt Count (160-400) X10*3/uL MPV (9.4-12.3) fL Immature Gran % (Auto) (0.0-0.4) % Neut % (Auto) (45-73) % Lymph % (Auto) (20-40) % Letcher % (Auto) (2-11) % Eos % (Auto) (0-4) % Baso % (Auto) (0-2) % Lymph # (Auto) (1.2-4.9) X10*3/uL Letcher # (Auto) (0.1-1.2) X10*3/uL Eos # (Auto) (0.0-0.4) X10*3/uL Baso # (Auto) (0.0-0.2) X10*3/uL Abs Immat Gran (auto) (0.00-0.03) X10*3/uL Absolute Neuts (auto) (2.0-8.3) x10*3/uL Absolute Nucleated RBC (0.0-0.012) X10*3/uL Nucleated RBC % (auto) (0.0-0.2) /100WBC PT (9.9-13.0) SEC INR (0.9-1.1) VBG pH 7.03 L* (7.32-7.43) VBG pCO2 31 mmHg VBG pO2 82 mmHg VBG HCO3 8 L (22-26) mmol/L VBG O2 Saturation 94.0 % VBG Base Excess -20.5 mmol/L Sodium 142 (135-145) mmol/L Potassium 6.4 H* 6.0 H* (3.3-5.1) mmol/L Chloride 127 H (96-108) mmol/L Carbon Dioxide 6 L* (22-29) mmol/L Anion Gap 15 (12-20) BUN 76 H (9-16) mg/dL Creatinine 3.19 H (0.5-1.4) mg/dL Estim Creat Clear Calc 16.0 Estimated GFR 15 POC Glucose (60-115) mg/dL Random Glucose 115 (60-115) mg/dL Lactic Acid (0.5-2.0) mmol/L Calcium 8.5 (8.4-10.2) mg/dL Magnesium (1.6-2.6) mg/dL Total Bilirubin (0.0-1.0) mg/dL Direct Bilirubin (0.0-0.5) mg/dL AST (5-31) U/L ALT (0-31) U/L Alkaline Phosphatase (39-117) U/L Total Creatine Kinase (26-140) U/L Troponin I High Sens (<3.5-17.0) ng/L B-Natriuretic Peptide (<100) pg/mL Total Protein (6.5-8.0) g/dL Albumin (3.5-5.0) g/dL Lipase (8-78) U/L Urine Color Urine Appearance Urine pH (5.0-8.0) Ur Specific Robinson (1.005-1.025) Urine Protein (NEG-TRACE) MG/DL Urine Glucose (UA) (NEG) MG/DL Urine Ketones (NEG) MG/DL Urine Blood (NEG) Urine Nitrite (NEG) Ur Leukocyte Esterase (NEG) Urine RBC (0) /HPF Urine WBC (0-4) /HPF Ur Squamous Epith Cells /LPF Amorphous Sediment /LPF Urine Bacteria /LPF COVID-19 (ISABELLE) (Negative) COVID-19 Clin Com Influenza Type A (SHAE) (Negative) Influenza Type B (SHAE) (Negative) Influenza A & B Note 07/28/21 Range/Units 11:57 WBC (4.8-10.8) X10*3/uL RBC (4.20-5.50) X10*6/uL Hgb (12.0-16.0) g/dl Hct (37.0-47.0) % MCV (80.0-98.0) fL MCH (27.0-33.0) pg MCHC (31.0-35.0) g/dl RDW (11.0-16.0) % Plt Count (160-400) X10*3/uL MPV (9.4-12.3) fL Immature Gran % (Auto) (0.0-0.4) % Neut % (Auto) (45-73) % Lymph % (Auto) (20-40) % Letcher % (Auto) (2-11) % Eos % (Auto) (0-4) % Baso % (Auto) (0-2) % Lymph # (Auto) (1.2-4.9) X10*3/uL Letcher # (Auto) (0.1-1.2) X10*3/uL Eos # (Auto) (0.0-0.4) X10*3/uL Baso # (Auto) (0.0-0.2) X10*3/uL Abs Immat Gran (auto) (0.00-0.03) X10*3/uL Absolute Neuts (auto) (2.0-8.3) x10*3/uL Absolute Nucleated RBC (0.0-0.012) X10*3/uL Nucleated RBC % (auto) (0.0-0.2) /100WBC PT (9.9-13.0) SEC INR (0.9-1.1) VBG pH (7.32-7.43) VBG pCO2 mmHg VBG pO2 mmHg VBG HCO3 (22-26) mmol/L VBG O2 Saturation % VBG Base Excess mmol/L Sodium (135-145) mmol/L Potassium (3.3-5.1) mmol/L Chloride (96-108) mmol/L Carbon Dioxide (22-29) mmol/L Anion Gap (12-20) BUN (9-16) mg/dL Creatinine (0.5-1.4) mg/dL Estim Creat Clear Calc Estimated GFR POC Glucose 104 (60-115) mg/dL Random Glucose (60-115) mg/dL Lactic Acid (0.5-2.0) mmol/L Calcium (8.4-10.2) mg/dL Magnesium (1.6-2.6) mg/dL Total Bilirubin (0.0-1.0) mg/dL Direct Bilirubin (0.0-0.5) mg/dL AST (5-31) U/L ALT (0-31) U/L Alkaline Phosphatase (39-117) U/L Total Creatine Kinase (26-140) U/L Troponin I High Sens (<3.5-17.0) ng/L B-Natriuretic Peptide (<100) pg/mL Total Protein (6.5-8.0) g/dL Albumin (3.5-5.0) g/dL Lipase (8-78) U/L Urine Color Urine Appearance Urine pH (5.0-8.0) Ur Specific Robinson (1.005-1.025) Urine Protein (NEG-TRACE) MG/DL Urine Glucose (UA) (NEG) MG/DL Urine Ketones (NEG) MG/DL Urine Blood (NEG) Urine Nitrite (NEG) Ur Leukocyte Esterase (NEG) Urine RBC (0) /HPF Urine WBC (0-4) /HPF Ur Squamous Epith Cells /LPF Amorphous Sediment /LPF Urine Bacteria /LPF COVID-19 (ISABELLE) (Negative) COVID-19 Clin Com Influenza Type A (SHAE) (Negative) Influenza Type B (SHAE) (Negative) Influenza A & B Note ECG Data ECG #1: Attestation: I personally reviewed and interpreted this ECG as follows: ECG interpretation date: 07/28/21 ECG interpretation time: 07:50 Interpretation: Rate: 89 Rhythm: NSR [place]: left Normal P waves. Normal NHUNG. Normal QRS complex. ST T wave : normal no JUS qtC: normal prior studies: no acute ischemia The study has been interpreted contemporaneously by me. Critical Care Time Critical Care Time Critical Care Time: Yes Total Critical Care Time: 60 Attestation: review of records, medical consult, correction of K, IVF x 2L I attest to this time spent taking care of the patient Discharge Plan Discharge Clinical Impression: Malaise, ANGELY (acute kidney injury), Acute hyperkalemia, Metabolic acidosis Rhabdomyolysis Qualifiers: Rhabdomyolysis type: non-traumatic Qualified Code(s): M62.82 - Rhabdomyolysis Patient Disposition: Admitted As Inpatient
--- NOTE | 2021-07-28 06:54 | ECG_ITS ---
Test Reason : CHEST PAIN Blood Pressure : / mmHG Vent. Rate : 089 BPM Atrial Rate : 089 BPM P-R Int : 186 ms QRS Dur : 084 ms QT Int : 366 ms P-R-T Axes : 046 -12 049 degrees QTc Int : 445 ms Normal sinus rhythm Normal ECG When compared with ECG of 01-JUL-2021 14:13, No significant change was found Referred By: Eliana Rivera Electronically Signed By:SHANNAN CRUZ
[2021-07-28 07:41] LABS: MANUAL DIFF FLAG NO
[2021-07-28 07:43] LABS: Basophils Percent Auto 0.3 % (0-2); Eosinophils Absolute Auto 0.4 X10*3/uL (0.0-0.4); Eosinophils Percent Auto 3.2 % (0-4); Hematocrit 29.9 % (37.0-47.0); Imm Gran Abs Auto 0.03 X10*3/uL (0.00-0.03); Imm Gran Pct Auto 0.3 % (0.0-0.4); Lymphocytes Absolute Auto 3.7 X10*3/uL (1.2-4.9); Lymphocytes Percent Auto 34.2 % (20-40); Mean Corpuscular HGB Conc 30.1 g/dl (31.0-35.0); Mean Corpuscular Volume 96.5 fL (80.0-98.0); Mean Platelet Volume 10.1 fL (9.4-12.3); Monocytes Absolute Auto 0.6 X10*3/uL (0.1-1.2); Monocytes Percent Auto 5.9 % (2-11); Neutrophils Absolute Auto 6.1 x10*3/uL (2.0-8.3); Neutrophils Percent Auto 56.1 % (45-73); Platelet Count 188 X10*3/uL (160-400); Red Cell Distribution Width 13.8 % (11.0-16.0); White Blood Count 10.8 X10*3/uL (4.8-10.8)
[2021-07-28] MEDS: Acetaminophen 325 MG TABLET 650 MG PO (07:48)
[2021-07-28 07:49] LABS: Prothrombin Time 11.9 SEC (9.9-13.0)
[2021-07-28] MEDS: 0.9 % Sodium Chloride 500 ML IV ×2 (07:51→10:47)
[2021-07-28 07:57] LABS: COVID-19 Test Negative (Negative)
[2021-07-28 07:57] LABS: IDNOW Serial# 16C4AD1C; Influenza A Negative (Negative); Influenza B2 Negative (Negative)
[2021-07-28 08:30] LABS: B Type Natriuretic Peptide 56 pg/mL (<100); Troponin-I High Sensitivity 5.3 ng/L (<3.5-17.0)
[2021-07-28 08:31] LABS: Alanine Aminotransferase 99 U/L (0-31); Albumin Level 3.7 g/dL (3.5-5.0); Alkaline Phosphatase 159 U/L (39-117); Aspartate Amino Transferase 70 U/L (5-31); Bilirubin Direct < 0.2 mg/dL (0.0-0.5); Bilirubin Total 0.3 mg/dL (0.0-1.0); Blood Urea Nitrogen 82 mg/dL (9-16); Calcium 8.9 mg/dL (8.4-10.2); Creatinine Clr Calc Pharmacy 14.3; Estimated Glomerular Filt Rate 13; Glucose Random 90 mg/dL (60-115); Lipase 67 U/L (8-78); Magnesium 2.2 mg/dL (1.6-2.6); Total Protein 6.5 g/dL (6.5-8.0)
[2021-07-28 08:43] LABS: Anion Gap 17 (12-20); Carbon Dioxide 6 mmol/L (22-29); Chloride 126 mmol/L (96-108); Potassium 7.1 mmol/L (3.3-5.1); Sodium 142 mmol/L (135-145)
[2021-07-28] MEDS: Sodium Bicarbonate 8.4% 50 MEQ/50 ML SYRINGE IVPUSH (08:57)
[2021-07-28] MEDS: Dextrose 50 % 25 GM/50 ML SYRINGE IVPUSH (08:57)
[2021-07-28] MEDS: Albuterol Sulfate (0.083%) 2.5 MG/3 ML VIAL.NEB 5 MG INHALE (08:58)
[2021-07-28] MEDS: Insulin Regular, Human 100 UNIT/ML 3 ML VIAL IVPUSH (08:58)
[2021-07-28] MEDS: Calcium Gluconate/NaCl,Iso-Osm 2 GM/100 ML PLAST..BAG IV (09:04)
[2021-07-28] MEDS: 0.9 % Sodium Chloride 1,000 ML 999 ML IV (09:07)
[2021-07-28] MEDS: Sodium Zirconium Cyclosilicate 5 GM POWD.PACK PO (09:08)
[2021-07-28 10:05] LABS: Venous Blood Gas Refer to POC result
[2021-07-28 10:06] LABS: Appearance Urine HAZY; Color Urine YELLOW; Glucose Urine UA NEG (NEG); Leukocyte Esterase Urine NEG (NEG); Nitrite Urine NEG (NEG); PH 5.5 (5.0-8.0); Specific Gravity - Urine 1.025 (1.005-1.025); UACC Culture Trigger NO; Urine Blood 3+ (NEG); Urine Ketones NEG (NEG); Urine Protein 1+ MG/DL (NEG-TRACE)
[2021-07-28 10:07] LABS: VBG Base Excess -20.5 mmol/L; VBG HCO3 8 mmol/L (22-26); VBG pCO2 31 mmHg; VBG pH 7.03 (7.32-7.43); VBG pO2 82 mmHg
[2021-07-28 10:09] LABS: Potassium 6.4 mmol/L (3.3-5.1)
[2021-07-28 10:27] LABS: Lactic Acid 2.7 mmol/L (0.5-2.0)
[2021-07-28 10:38] LABS: Amorphous Sediment Urine 2+ /LPF; Bacteria Urine 1+ /LPF; Squamous Epithelial Cell Urine 1+ /LPF
[2021-07-28] MEDS: Sodium Bicarbonate 8.4% 150 MEQ in Dextrose 5 % 850 ML 100 MEQ IV (10:40)
[2021-07-28] MEDS: Sodium Zirconium Cyclosilicate 10 GM POWD.PACK PO (11:16)
[2021-07-28 11:53] LABS: Reflex Lactate? Lactic Acid Added
[2021-07-28 12:01] LABS: Glucose, Whole Blood 104 mg/dL (60-115)
--- NOTE | 2021-07-28 12:22 | PHA.MEDREC ---
MED REC COMPLETE, NO ISSUES Pharmacy Consult ? Medication Reconciliation Pharmacy has completed the medication reconciliation.
[2021-07-28 12:23] LABS: Anion Gap 15 (12-20); Blood Urea Nitrogen 76 mg/dL (9-16); Calcium 8.5 mg/dL (8.4-10.2); Carbon Dioxide 6 mmol/L (22-29); Chloride 127 mmol/L (96-108); Estimated Glomerular Filt Rate 15; Glucose Random 115 mg/dL (60-115); Sodium 142 mmol/L (135-145)
--- NOTE | 2021-07-28 12:23 | PM.CNNEP ---
History of Present Illness Reason for Consult Consult date: 07/28/21 Chief Complaint Chief complaint: Chest pain PMFSH Past Medical History Medical History Anemia Ascending aorta dilatation Asthma CAD (coronary artery disease) CHF (congestive heart failure) Elevated cholesterol Fatty liver GERD (gastroesophageal reflux disease) History of alcohol dependence HTN (hypertension) Hx of acute pancreatitis Hx of acute renal failure Hx of diabetes with ketoacidosis Hx of non-ST elevation myocardial infarction (NSTEMI) IDDM (insulin dependent diabetes mellitus) Non-ischemic cardiomyopathy Sleep apnea Family History Family History Father History of heart attack Mother No problems noted. Surgical History Surgical History History of cardiac cath History of esophagogastroduodenoscopy (EGD) History of partial hysterectomy Hx of cholecystectomy Hx of colonoscopy Hx of lithotripsy Social History Social History Household Members: None Housing: Apartment Do you presently have visiting nurse or other home services: No Alcohol intake: never Patient Tobacco Use Status: Never used Tobacco Advance Directives: Yes Advance Directives on File: Yes Advance Directives Date on File: 07/02/21 service: No Current occupational status: retired Meds Allergies Allergy/AdvReac Type Severity Reaction Status Date / Time simvastatin [SIMVASTATIN] AdvReac Unknown Unknown Verified 11/08/20 10:18 Active Medications: Current Medications Sodium Bicarbonate 150 meq/ (Dextrose) 1,000 mls @ 100 mls/hr IV .Q10H DERIC Last Admin: 07/28/21 10:40 Dose: 100 mls/hr Documented by: Pharmacy Consult (Consult Rx Perform Med Rec) 1 each MISCELLANE ONCE PRN PRN Reason: Consult order Home Medications Medication Instructions Recorded Confirmed Last Taken Type albuterol sulfate 90 mcg/actuation 2 puff INHALATION Q4-6H PRN 03/14/20 07/28/21 Unknown History aerosol inhaler aspirin 81 mg tablet,delayed 81 mg PO DAILY 03/14/20 07/28/21 07/27/21 History release carvedilol 3.125 mg tablet 3.125 mg PO BID 03/14/20 07/28/2122 History ergocalciferol (vitamin D2) 1,250 1,250 mcg PO MO 03/14/20 07/28/21 07/22/21 History mcg (50,000 unit) capsule (Vitamin D2) folic acid 1 mg tablet 1 mg PO DAILY 03/14/20 07/28/21 07/27/21 History lisinopril 20 mg tablet 20 mg PO BEDTIME 03/14/20 07/28/21 07/27/21 History metformin 500 mg tablet 1,000 mg PO BID 03/14/20 07/28/21 07/27/21 History insulin glargine 100 unit/mL 15 unit SUBCUT DAILY 07/27/20 07/28/21 07/27/21 History subcutaneous solution (Lantus U-100 Insulin) atorvastatin 80 mg tablet 80 mg PO BEDTIME 07/28/20 07/28/21 07/27/21 History calcium carbonate 200 mg calcium 1 tab PO BID PRN 07/28/20 07/28/21 07/01/21 History (500 mg) chewable tablet (Calcium Antacid) acetaminophen 650 mg 1 tab PO Q8H PRN 07/01/21 07/28/21 Unknown History tablet,extended release baclofen 10 mg tablet 1 tab PO TID PRN 07/01/21 07/28/21 Unknown History fluticasone propionate 110 2 puff INHALATION BID 07/01/21 07/28/21 07/27/21 History mcg/actuation HFA aerosol inhaler (Flovent HFA) gabapentin 100 mg capsule 1 cap PO BEDTIME 07/01/21 07/28/21 07/27/21 History insulin lispro 100 unit/mL 0 unit SUBCUT BID@0730,1130 07/01/21 07/28/21 06/30/21 History subcutaneous pen (Humalog KwikPen (U-100) Insulin) ketotifen fumarate 0.025 % (0.035 1 drp OPHTHALMIC (EYE) BID 07/01/21 07/28/21 07/27/21 History %) eye drops loratadine 10 mg tablet 10 mg PO DAILY 07/01/21 07/28/21 07/27/21 History pantoprazole 40 mg tablet,delayed 1 tab PO BID 07/01/21 07/28/21 07/27/21 History release lidocaine 5 % topical patch 1 patch TOPICAL DAILY 07/28/21 07/28/21 07/27/21 History ragboe-xubmhnaf-pyuigdm 1 cap PO TIDWM 07/28/21 07/28/21 07/27/21 History 24,000-76,000-120,000 unit capsule,delayed rel (Creon) Physical Exam Vital Signs: Last Vital Signs Temp 98.5 F 07/28/21 07:50 Pulse 99 07/28/21 10:38 Resp 24 H 07/28/21 10:38 BP 118/52 L 07/28/21 10:38 Pulse Ox 99 07/28/21 07:50 BMI result Body Mass Index 25.0 Results Lab Results Result Diagrams: 07/28/21 07:34 07/28/21 09:47 Lab results: Chemistry 07/28/21 07/28/21 07:34 09:47 Sodium 142 Potassium 7.1 H* D 6.4 H* Carbon Dioxide 6 L* D BUN 82 H D Creatinine 3.57 H Calcium 8.9 Hematology 07/28/21 07:34 WBC 10.8 Hgb 9.0 L Plt Count 188 Urinalysis 07/28/21 09:47 Urine Color YELLOW Urine Appearance HAZY Urine pH 5.5 Ur Specific [place] 1.025 Urine Protein 1+ H Urine Glucose (UA) NEG Urine Ketones NEG Urine Blood 3+ H Urine Nitrite NEG Ur Leukocyte Esterase NEG Urine RBC 1-4 Urine WBC 1-4 Ur Squamous Epith Cells 1+ Assessment and Plan (1) ANGELY (acute kidney injury): Status: Acute Plan ANGELY Sever hyperkalemia Acidosis Consult dictated [id number] Procedures Date of Service Date of Service: 07/28/21
[2021-07-28 12:50] LABS: ~Lactic Acid-LAB USE ONLY 1.2 mmol/L (0.5-2.0)
--- NOTE | 2021-07-28 12:53 | PM.CCHP ---
History of Present Illness Date of Service: 07/29/21 Chief Complaint: Midsternal pain 65-year-old lady with underlying history of diabetes mellitus, CAD, CHF, obesity, sleep apnea, asthma, alcohol dependence, chronic pancreatitis, recent admission for electrolyte abnormalities admitted on 07/29/2021 with complaints of midsternal pain. On ER evaluation patient has had cardiac etiologies and pancreatitis ruled out. She was noted to have significant metabolic acidosis with acute renal failure and hyperkalemia. Nephrology was consulted. Patient was started on bicarbonate drip and admitted to intensive care unit. Her to CT abdomen demonstrated some thickening of bowel wall, but no other acute findings. Review of Systems Constitutional: Constitutional: Denies daytime sleepiness, Denies excessive sweating, Denies fatigue, Denies fever(s), Reports lethargy, Denies malaise, Denies night sweats, Denies snoring and Denies weight loss Eyes: Eyes: Denies blurry vision and Denies itchy eyes ENT: Denies nasal congestion, Denies post nasal drip, Denies sinus pain, Denies sinus pressure and Denies other ( Thrush) Cardiovascular: Cardiovascular: Reports chest pain (Midsternal), Denies pedal edema, Denies dyspnea, Denies orthopnea and Denies paroxysmal nocturnal dyspnea Respiratory: Respiratory: Denies cough, Denies hemoptysis, Denies excessive phlegm production, Denies dyspnea, Denies snoring and Denies wheezing Gastrointestinal: Gastrointestinal: Denies abdominal pain and Reports heartburn Musculoskeletal: Musculoskeletal: Denies myalgias, Denies arthralgias and Denies joint swelling Integumentary/Breasts: Skin/Breast: Denies rash Neurologic: Denies memory loss and Denies seizure-like activity Psychiatric: Psychiatric: Denies abnormal sleep pattern, Denies anxiety and Denies memory loss Endocrine: Endocrine: Denies excessive sweating, Denies fatigue and Denies heat intolerance Hematologic/Lymphatic: Hematologic/Lymphatic: Denies easy bruising Allergic/Immunologic: Allergic/Immunologic: Denies itchy eyes, Denies seasonal rhinorrhea and Denies wheezing PMFSH Past Medical History Medical History (Updated 07/29/21 @ 08:56 by Stevan Landaverde MD) Anemia Ascending aorta dilatation Asthma CAD (coronary artery disease) CHF (congestive heart failure) Elevated cholesterol Fatty liver GERD (gastroesophageal reflux disease) History of alcohol dependence HTN (hypertension) Hx of acute pancreatitis Hx of acute renal failure Hx of diabetes with ketoacidosis Hx of non-ST elevation myocardial infarction (NSTEMI) IDDM (insulin dependent diabetes mellitus) Non-ischemic cardiomyopathy Sleep apnea Family History Family History Father History of heart attack Mother No problems noted. Surgical History Surgical History History of cardiac cath History of esophagogastroduodenoscopy (EGD) History of partial hysterectomy Hx of cholecystectomy Hx of colonoscopy Hx of lithotripsy Social History Social History Household Members: None Housing: Apartment Do you presently have visiting nurse or other home services: No Alcohol intake: never Patient Tobacco Use Status: Never used Tobacco Use of substances other than those prescribed or required for medical reasons: No Have you been hit, kicked, punched, or otherwise hurt by someone within the past year? If so, by whom?: No Do you feel safe in your current relationship?: No Is there a partner from a previous relationship who is making you feel unsafe now?: No Are you made to feel afraid or neglected: No Spiritual Healthcare Practices: none per patient Synagogue Healthcare Practices: Anabaptist Cultural Healthcare Practices: none per patient Advance Directives: Yes Advance Directives on File: Yes Advance Directives Date on File: 07/02/21 Do you have thoughts of harming others: None Do you have a plan to hurt others: No Plan Recently lost weight without trying: Yes How much weight loss: 34pounds or more Eating poorly because of decreased appetite: Yes Nutrition screen score: 7 Nutrition Risks: No Nutritional Risk Patient : No : No Poor oral hygiene: No service: No Current occupational status: retired Meds Allergies Allergy/AdvReac Type Severity Reaction Status Date / Time simvastatin [SIMVASTATIN] AdvReac Unknown Unknown Verified 11/08/20 10:18 Active Medications: Current Medications Heparin Sodium (Porcine) (Heparin Sodium,Porcine 5,000 Unit/Ml Vial) 5,000 unit SUBCUT Q8H DERIC Sodium Bicarbonate 150 meq/ (Dextrose) 1,000 mls @ 100 mls/hr IV .Q10H DERIC Last Admin: 07/28/21 10:40 Dose: 100 mls/hr Documented by: Insulin Human Lispro (Insulin Lispro 100 Unit/Ml 3 Ml Vial) 0 unit SUBCUT [facility]; Protocol Pharmacy Consult (Consult Rx Perform Med Rec) 1 each MISCELLANE ONCE PRN PRN Reason: Consult order Home Medications Medication Instructions Recorded Confirmed Last Taken Type albuterol sulfate 90 mcg/actuation 2 puff INHALATION Q4-6H PRN 03/14/20 07/28/21 Unknown History aerosol inhaler aspirin 81 mg tablet,delayed 81 mg PO DAILY 03/14/20 07/28/21 07/27/21 History release carvedilol 3.125 mg tablet 3.125 mg PO BID 03/14/20 07/28/21 07/27/21 History ergocalciferol (vitamin D2) 1,250 1,250 mcg PO MO 03/14/20 07/28/21 07/22/21 History mcg (50,000 unit) capsule (Vitamin D2) folic acid 1 mg tablet 1 mg PO DAILY 03/14/20 07/28/21 07/27/21 History lisinopril 20 mg tablet 20 mg PO BEDTIME 03/14/20 07/28/21 07/27/21 History metformin 500 mg tablet 1,000 mg PO BID 03/14/20 07/28/21 07/27/21 History insulin glargine 100 unit/mL 15 unit SUBCUT DAILY 07/27/20 07/28/21 07/27/21 History subcutaneous solution (Lantus U-100 Insulin) atorvastatin 80 mg tablet 80 mg PO BEDTIME 07/28/20 07/28/21 07/27/21 History calcium carbonate 200 mg calcium 1 tab PO BID PRN 07/28/20 07/28/21 07/01/21 History (500 mg) chewable tablet (Calcium Antacid) acetaminophen 650 mg 1 tab PO Q8H PRN 07/01/21 07/28/21 Unknown History tablet,extended release baclofen 10 mg tablet 1 tab PO TID PRN 07/01/21 07/28/21 Unknown History fluticasone propionate 110 2 puff INHALATION BID 07/01/21 07/28/21 07/27/21 History mcg/actuation HFA aerosol inhaler (Flovent HFA) gabapentin 100 mg capsule 1 cap PO BEDTIME 0407/28/21 07/27/21 History insulin lispro 100 unit/mL 0 unit SUBCUT BID@0730,1130 07/01/21 07/28/21 06/30/21 History subcutaneous pen (Humalog KwikPen (U-100) Insulin) ketotifen fumarate 0.025 % (0.035 1 drp OPHTHALMIC (EYE) BID 07/01/21 07/28/21 07/27/21 History %) eye drops loratadine 10 mg tablet 10 mg PO DAILY 07/01/21 07/28/21 07/27/21 History pantoprazole 40 mg tablet,delayed 1 tab PO BID 07/01/21 07/28/21 07/27/21 History release lidocaine 5 % topical patch 1 patch TOPICAL DAILY 07/28/21 07/28/21 07/27/21 History vyalmv-cedstxuh-pwthwfr 1 cap PO TIDWM 07/28/21 07/28/21 07/27/21 History 24,000-76,000-120,000 unit capsule,delayed rel (Creon) Physical Exam Vital Signs: Vital Signs: Last Vital Signs Temp 98.5 F 07/28/21 07:50 Pulse 99 07/28/21 10:38 Resp 24 H 07/28/21 10:38 BP 118/52 L 07/28/21 10:38 Pulse Ox 99 07/28/21 07:50 BMI result Body Mass Index 25.0 Const: General: no acute distress and alert Nutritional Appearance: not obese Orientation/consciousness: Other orientation findings ( oriented) HEENT: Head: Yes atraumatic Mouth: no other ( thrush) Throat: No postnasal drainage Eyes: General: appearance normal, both eyes and all related structures Sclerae: sclerae normal EOM: EOMs intact bilaterally Neck: Neck: Yes supple Lymphatic: no lymphadenopathy noted Resp: Effort & Inspection: normal respiratory effort and no use of accessory muscles Auscultation: clear to auscultation bilaterally Cardio: Rate: regular rate Rhythm: regular rhythm Heart sounds: no gallops, no murmurs and no rubs GI: Palpation (GI): Soft to palpation and Other GI palpation findings present ( nontender) Skin: General skin exam: other ( warm) Rashes: no rashes Extrem: General: No clubbing, No cyanosis and No edema Results Labs CBC and Chem 7: 07/29/21 05:39 07/29/21 05:39 Labs: Laboratory Results - last 24 hr 07/28/21 07/28/21 07/28/21 07:34 07:34 07:34 MCV 96.5 MCH 29.0 MCHC 30.1 L RDW 13.8 Plt Count 188 MPV 10.1 Immature Gran % (Auto) 0.3 Neut % (Auto) 56.1 Lymph % (Auto) 34.2 [place] % (Auto) 5.9 Eos % (Auto) 3.2 Baso % (Auto) 0.3 Lymph # (Auto) 3.7 [place] # (Auto) 0.6 Eos # (Auto) 0.4 Baso # (Auto) 0.0 Abs Immat Gran (auto) 0.03 Absolute Neuts (auto) 6.1 Absolute Nucleated RBC 0.000 Nucleated RBC % (auto) 0.0 PT 11.9 INR 1.0 VBG pH VBG pCO2 VBG pO2 VBG HCO3 VBG O2 Saturation VBG Base Excess Anion Gap 17 Estim Creat Clear Calc 14.3 Estimated GFR 13 POC Glucose Random Glucose 90 Lactic Acid Lactic Acid F/U @ 2Hr Calcium 8.9 Magnesium 2.2 Total Bilirubin 0.3 Direct Bilirubin < 0.2 AST 70 H ALT 99 H Alkaline Phosphatase 159 H D Total Creatine Kinase 2015 H Troponin I High Sens B-Natriuretic Peptide Total Protein 6.5 D Albumin 3.7 Lipase 67 Urine Color Urine Appearance Urine pH Ur Specific [place] Urine Protein Urine Glucose (UA) Urine Ketones Urine Blood Urine Nitrite Ur Leukocyte Esterase Urine RBC Urine WBC Ur Squamous Epith Cells Amorphous Sediment Urine Bacteria COVID-19 (ISABELLE) COVID-19 Clin Com Influenza Type A (SHAE) Influenza Type B (SHAE) Influenza A & B Note 07/28/21 07/28/21 07/28/21 07:34 07:34 07:34 MCV MCH MCHC RDW Plt Count MPV Immature Gran % (Auto) Neut % (Auto) Lymph % (Auto) [place] % (Auto) Eos % (Auto) Baso % (Auto) Lymph # (Auto) [place] # (Auto) Eos # (Auto) Baso # (Auto) Abs Immat Gran (auto) Absolute Neuts (auto) Absolute Nucleated RBC Nucleated RBC % (auto) PT INR VBG pH VBG pCO2 VBG pO2 VBG HCO3 VBG O2 Saturation VBG Base Excess Anion Gap Estim Creat Clear Calc Estimated GFR POC Glucose Random Glucose Lactic Acid Lactic Acid F/U @ 2Hr Calcium Magnesium Total Bilirubin Direct Bilirubin AST ALT Alkaline Phosphatase Total Creatine Kinase Troponin I High Sens 5.3 B-Natriuretic Peptide 56 Total Protein Albumin Lipase Urine Color Urine Appearance Urine pH Ur Specific [place] Urine Protein Urine Glucose (UA) Urine Ketones Urine Blood Urine Nitrite Ur Leukocyte Esterase Urine RBC Urine WBC Ur Squamous Epith Cells Amorphous Sediment Urine Bacteria COVID-19 (ISABELLE) Negative COVID-19 Clin Com See Note Influenza Type A (SHAE) Influenza Type B (SHAE) Influenza A & B Note 07/28/21 07/28/21 07/28/21 07:35 09:47 09:47 MCV MCH MCHC RDW Plt Count MPV Immature Gran % (Auto) Neut % (Auto) Lymph % (Auto) [place] % (Auto) Eos % (Auto) Baso % (Auto) Lymph # (Auto) [place] # (Auto) Eos # (Auto) Baso # (Auto) Abs Immat Gran (auto) Absolute Neuts (auto) Absolute Nucleated RBC Nucleated RBC % (auto) PT INR VBG pH VBG pCO2 VBG pO2 VBG HCO3 VBG O2 Saturation VBG Base Excess Anion Gap Estim Creat Clear Calc Estimated GFR POC Glucose Random Glucose Lactic Acid 2.7 H* Lactic Acid F/U @ 2Hr Calcium Magnesium Total Bilirubin Direct Bilirubin AST ALT Alkaline Phosphatase Total Creatine Kinase Troponin I High Sens B-Natriuretic Peptide Total Protein Albumin Lipase Urine Color YELLOW Urine Appearance HAZY Urine pH 5.5 Ur Specific [place] 1.025 Urine Protein 1+ H Urine Glucose (UA) NEG Urine Ketones NEG Urine Blood 3+ H Urine Nitrite NEG Ur Leukocyte Esterase NEG Urine RBC 1-4 Urine WBC 1-4 Ur Squamous Epith Cells 1+ Amorphous Sediment 2+ Urine Bacteria 1+ COVID-19 ([facility]ABELLE) COVID-19 Clin Com Influenza Type A (SHAE) Negative Influenza Type B (SHAE) Negative Influenza A & B Note See Note 07/28/21 07/28/21 07/28/21 09:53 11:54 11:57 MCV MCH MCHC RDW Plt Count MPV Immature Gran % (Auto) Neut % (Auto) Lymph % (Auto) [place] % (Auto) Eos % (Auto) Baso % (Auto) Lymph # (Auto) [place] # (Auto) Eos # (Auto) Baso # (Auto) Abs Immat Gran (auto) Absolute Neuts (auto) Absolute Nucleated RBC Nucleated RBC % (auto) PT INR VBG pH 7.03 L* VBG pCO2 31 VBG pO2 82 VBG HCO3 8 L VBG O2 Saturation 94.0 VBG Base Excess -20.5 Anion Gap 15 Estim Creat Clear Calc 16.0 Estimated GFR 15 POC Glucose 104 Random Glucose 115 Lactic Acid Lactic Acid F/U @ 2Hr Calcium 8.5 Magnesium Total Bilirubin Direct Bilirubin AST ALT Alkaline Phosphatase Total Creatine Kinase Troponin I High Sens B-Natriuretic Peptide Total Protein Albumin Lipase Urine Color Urine Appearance Urine pH Ur Specific [place] Urine Protein Urine Glucose (UA) Urine Ketones Urine Blood Urine Nitrite Ur Leukocyte Esterase Urine RBC Urine WBC Ur Squamous Epith Cells Amorphous Sediment Urine Bacteria COVID-19 ([facility]ELLE) COVID-19 Clin Com Influenza Type A (SHAE) Influenza Type B (SHAE) Influenza A & B Note 07/28/21 12:29 MCV MCH MCHC RDW Plt Count MPV Immature Gran % (Auto) Neut % (Auto) Lymph % (Auto) [place] % (Auto) Eos % (Auto) Baso % (Auto) Lymph # (Auto) [place] # (Auto) Eos # (Auto) Baso # (Auto) Abs Immat Gran (auto) Absolute Neuts (auto) Absolute Nucleated RBC Nucleated RBC % (auto) PT INR VBG pH VBG pCO2 VBG pO2 VBG HCO3 VBG O2 Saturation VBG Base Excess Anion Gap Estim Creat Clear Calc Estimated GFR POC Glucose Random Glucose Lactic Acid Lactic Acid F/U @ 2Hr 1.2 Calcium Magnesium Total Bilirubin Direct Bilirubin AST ALT Alkaline Phosphatase Total Creatine Kinase Troponin I High Sens B-Natriuretic Peptide Total Protein Albumin Lipase Urine Color Urine Appearance Urine pH Ur Specific [place] Urine Protein Urine Glucose (UA) Urine Ketones Urine Blood Urine Nitrite Ur Leukocyte Esterase Urine RBC Urine WBC Ur Squamous Epith Cells Amorphous Sediment Urine Bacteria COVID-19 (ISABELLE) COVID-19 Clin Com Influenza Type A (SHAE) Influenza Type B (SHAE) Influenza A & B Note Imaging Radiologist's Impressions: Impressions Chest X-Ray 07/28/21 07:55 IMPRESSION: Mild cardiomegaly. No acute pulmonary process Renal Ultrasound 07/28/21 11:10 IMPRESSION: No acute sonographic findings at the kidneys. No evidence of obstructive uropathy.. Assessment and Plan (1) Enteritis: Status: Acute (2) Malaise: Status: Acute (3) ANGELY (acute kidney injury): Status: Acute (4) Acute hyperkalemia: Status: Acute (5) Metabolic acidosis: Status: Acute (6) Rhabdomyolysis: Qualifiers: Rhabdomyolysis type: non-traumatic Qualified Code(s): M62.82 - Rhabdomyolysis Status: Acute (7) DMII (diabetes mellitus, type 2): Status: Acute (8) CHF (congestive heart failure): Status: Acute Plan Assessment: 65-year-old lady with multiple medical problems admitted with acute metabolic acidosis likely secondary to acute renal failure of unclear etiology, likely with component of intravascular volume depletion. Plan: Neuro: No acute issues. Cardiac: No acute issues. Underlying chronic diastolic congestive heart failure. Pulmonary: No acute issues. Underlying asthma. Renal: Acute renal failure, non oliguric. Acute metabolic acidosis. Acute hyperkalemia, likely secondary to metabolic acidosis, improving. Nephrology evaluation is pending. Continue with bicarbonate drip. Endo: No acute issues. GI: CT abdomen and pelvis with mild thickening of bowel wall, but no other acute findings. Possible ischemic versus infectious enteritis. Empirically started on Levaquin and Flagyl. ID: No acute issues Heme/Onc: No acute issues. Psych: No acute issues. Miscellaneous: No acute issues. Prophylaxis: Heparin Diet: Regular Critical care time spent: 60
--- NOTE | 2021-07-28 13:17 | CONS_ITS ---
DATE OF SERVICE: 07/28/2021 REASON FOR CONSULTATION: I was called to see this patient to assist in management of acute kidney injury and hyperkalemia. HISTORY OF PRESENT ILLNESS: To summarize, Amy is a 65-year-old woman with multiple medical problems. She was recently hospitalized and was discharged. She has had episodes of acute kidney injury in the past. Baseline creatinine is around 1.2 mg/dL. She comes to the hospital because of chest pain and upon workup, she was found to have acute kidney injury with a creatinine of more than 3 and potassium was 1.1. There was no EKG changes. I spoke to Dr. Rivera and she was treated medically with Lokelma, insulin, dextrose, and calcium gluconate. Repeat potassium was 6.4. Steel has been inserted and she is currently nonoliguric. PAST MEDICAL HISTORY: Her ongoing medical problems include history of chronic kidney disease, history of episodes of acute kidney injury, coronary artery disease, CHF, hyperlipidemia, obesity, GERD, history of acute pancreatitis, nonischemic cardiomyopathy, sleep apnea. PAST SURGICAL HISTORY: Includes a history of EGD, cardiac catheterization, partial hysterectomy, cholecystectomy, history of lithotripsy. FAMILY HISTORY: Noncontributory to this admission, although there is a history of coronary artery disease. SOCIAL HISTORY: She lives in an apartment. She has never used tobacco. She is not working at present. ALLERGIES: SIMVASTATIN. HOME MEDICATIONS: Include albuterol, aspirin, carvedilol, ergocalciferol, lisinopril 20 mg, metformin, insulin, atorvastatin, calcium carbonate, Tylenol, baclofen, fluticasone, gabapentin, insulin, ketotifen, repaglinide, pantoprazole. REVIEW OF SYSTEMS: Chest pain. No nausea, vomiting. No abdominal pain, diarrhea, constipation. No polyuria, polydipsia. No edema. No rash. No fever. All other systems were reviewed. PHYSICAL EXAMINATION: GENERAL: Amy is a pleasant 65-year-old woman. She is comfortable, lying in bed, not in any distress. NECK: Supple. No JVD. HEENT: Mucosa is dry. LUNGS: Air entry equal. Few scattered rhonchi. HEART: S1, S2 heard. No gallop or rub. ABDOMEN: Obese, soft, nontender. Bowel sounds heard. NEUROLOGIC: Alert and awake. No asterixis. No focal motor deficits. EXTREMITIES: No dependent edema. No rash. No clubbing. VITAL SIGNS: Blood pressure today was 118/52, pulse 99, she is afebrile. DIAGNOSTIC STUDIES: EKG was reviewed. Labs; hemoglobin 9.0, platelets 188, WBC 10.8. Recent potassium 6.4, lactic acid 2.7. On admission, sodium 142, potassium 7.1, bicarb of 6, BUN 82, creatinine 3.57. AST, ALT were elevated. Alkaline phosphatase 159, total CPK 2015, albumin 3.7. Urinalysis showed 1+ protein by dipstick with 3+ RBCs. Renal ultrasound done today showed right kidney measuring 10.8 cm, left kidney measuring 12.8 cm. No hydronephrosis. No evidence of obstructive uropathy. PROBLEMS: 1. Acute kidney injury superimposed on chronic kidney disease. 2. Hyperkalemia. 3. Severe metabolic acidosis. 4. Anemia. 5. The differential diagnosis was acute kidney injury, which certainly include hypoperfusion and possible acute tubular necrosis from ischemia. However, the urine does show some protein and blood, therefore glomerulonephritis cannot be ruled out yet. There is no evidence of obstruction based on ultrasonogram. 6. Severe hyperkalemia in the setting of acute kidney injury with metabolic acidosis. RECOMMENDATION: Obtain a spot urine for protein, creatinine, and sodium. Check urine and protein electrophoresis. Check serum complement C3, C4, SINA, c-ANCA, p-ANCA. For now, keep the Steel catheter in. Start IV hydration with D5W with 3 amps of sodium bicarbonate to correct acidosis. Correct hyperkalemia medically with admission on a dose of Kayexalate 10 g and reactive to potassium. If the potassium does not decrease or if she has any EKG changes, then she may require urgent dialysis. We will follow the potassium levels closely. Further workup will be based on the outcome of the baseline investigations. We will follow closely along with the team. Ronald Santiago MD BPA/MODL / [id number]
[2021-07-28] MEDS: Heparin Sodium,Porcine 5,000 UNIT/ML VIAL 5000 UNIT SUBCUT ×2 (14:20→20:04)
[2021-07-28] MEDS: Sodium Bicarbonate 8.4% 150 MEQ in Dextrose 5 % 850 ML 250 MEQ IV ×4 (14:21→22:30)
[2021-07-28 15:11] LABS: Glucose, Whole Blood 99 mg/dL (60-115)
[2021-07-28 16:17] LABS: Glucose, Whole Blood 120 mg/dL (60-115)
[2021-07-28 17:24] LABS: VBG Base Excess -16.9 mmol/L; VBG HCO3 9 mmol/L (22-26); VBG pCO2 25 mmHg; VBG pH 7.18 (7.32-7.43); VBG pO2 44 mmHg
[2021-07-28 17:26] LABS: Venous Blood Gas Refer to POC result
[2021-07-28 17:46] LABS: Anion Gap 18 (12-20); Blood Urea Nitrogen 72 mg/dL (9-16); Calcium 8.4 mg/dL (8.4-10.2); Carbon Dioxide 6 mmol/L (22-29); Chloride 123 mmol/L (96-108); Estimated Glomerular Filt Rate 15; Glucose Random 172 mg/dL (60-115); Potassium 4.9 mmol/L (3.3-5.1); Sodium 142 mmol/L (135-145)
[2021-07-28] MEDS: levoFLOXacin/D5W 750 MG/150 ML PIGGYBACK 100 MG IV (18:18)
[2021-07-28] MEDS: metroNIDAZOLE/NS 500 MG/100 ML PIGGYBACK 100 MG IV (18:18)
[2021-07-28 18:44] LABS: Acetone, serum QL Negative (Negative)
[2021-07-28 18:46] LABS: Phosphorus 5.4 mg/dL (2.7-4.5)
[2021-07-28 21:10] LABS: Glucose, Whole Blood 310 mg/dL (60-115)
[2021-07-28] MEDS: Insulin Lispro 100 UNIT/ML 3 ML VIAL SUBCUT (21:23)
[2021-07-28 23:20] LABS: VBG Base Excess -6.8 mmol/L; VBG HCO3 17 mmol/L (22-26); VBG pCO2 28 mmHg; VBG pH 7.38 (7.32-7.43); VBG pO2 41 mmHg
[2021-07-28 23:36] LABS: Venous Blood Gas Refer to POC result
[2021-07-28 23:45] LABS: Anion Gap 14 (12-20); Blood Urea Nitrogen 67 mg/dL (9-16); Calcium 7.8 mg/dL (8.4-10.2); Carbon Dioxide 15 mmol/L (22-29); Chloride 116 mmol/L (96-108); Creatinine Clr Calc Pharmacy 15.6; Estimated Glomerular Filt Rate 14; Glucose Random 357 mg/dL (60-115); Potassium 4.1 mmol/L (3.3-5.1); Sodium 141 mmol/L (135-145)
[2021-07-29] VITALS (20 sets, daily range): BP systolic 95–136; BP diastolic 44–80; PULSE 82–104; RESP 16–24; TEMP 36.7–38.3; O2SAT 93–100; BMI 26.2; BMI 29.7
--- NOTE | 2021-07-29 | ECG_ITS ---
Test Reason : FEELING PRESSURE Blood Pressure : / mmHG Vent. Rate : 098 BPM Atrial Rate : 098 BPM P-R Int : 182 ms QRS Dur : 080 ms QT Int : 334 ms P-R-T Axes : 050 -14 076 degrees QTc Int : 426 ms Normal sinus rhythm Nonspecific ST and T wave abnormality Abnormal ECG When compared to the previous EKG of ST more depressed Lateral leads Referred By: Karina Huynh Electronically Signed By:JOSIANE MCCLURE MD
[2021-07-29] MEDS: Calcium Gluconate/NaCl,Iso-Osm 1 GM/50 ML PLAST..BAG IV (00:34)
[2021-07-29] MEDS: Insulin Lispro 100 UNIT/ML 3 ML VIAL SUBCUT ×2 (00:34→22:02)
[2021-07-29] MEDS: Sodium Bicarbonate 8.4% 150 MEQ in Dextrose 5 % 850 ML 250 MEQ IV ×2 (02:21→05:25)
[2021-07-29] MEDS: metroNIDAZOLE/NS 500 MG/100 ML PIGGYBACK 100 MG IV ×3 (02:22→16:20)
[2021-07-29 02:27] LABS: Glucose, Whole Blood 250 mg/dL (60-115)
--- NOTE | 2021-07-29 04:50 | PC.NURSE ---
Addendum entered by Arnulfo Saravia RN 07/29/21 06:35: C/O MILD EPIGASTRIC/CHEST PRESSURE....12-LEAD EKG DONE/REVIEWED BY FUNCTIONAL MENTAL DISABILITY TEACHER...TROPONIN DRAWN...O2 3 L/M CANNULA APPLIED...PROTONIX 40MG IV GIVEN....AM LABS REVIEWED BY FUNCTIONAL MENTAL DISABILITY TEACHER..BICARB DRIP D/C'D....FOR KCL/MGSO4..TP T&S AND PRBC X1...NPO AND FOR STOOL GUIAC PER FUNCTIONAL MENTAL DISABILITY TEACHER...CURRENTLY DOZING Original Note: CARE ASSUMED 23:15...NAPPING..EASILY AWAKENED..ALERT..ORIENTED X3..RESPIRATIONS EASY ON ROOM AIR....D5W/NaHCO3 DRIP 250 CC/HR...CHOI CLEAR YELLOW URINE..NSR..NO ECTOPY..HS POC PREVIOUSLY 310/INSULIN 8 UNITS COVERAGE APPROX 9:30PM...HS LAB-WORK DRAWN AND REVIEWED WITH ICU FUNCTIONAL MENTAL DISABILITY TEACHER...CALCIUM GLUCONATE 1 GRAM IV X1...[id number]...INSULIN 5 UNITS SC X1 PER FUNCTIONAL MENTAL DISABILITY TEACHER...REPEAT POC GLUCOSE 250 @ 02:30...FOR SCHEDULED LABS 5AM PER FUNCTIONAL MENTAL DISABILITY TEACHER..
[2021-07-29] MEDS: Heparin Sodium,Porcine 5,000 UNIT/ML VIAL 5000 UNIT SUBCUT (05:25)
[2021-07-29 05:43] LABS: VBG Base Excess 5.3 mmol/L; VBG HCO3 28 mmol/L (22-26); VBG pCO2 35 mmHg; VBG pH 7.51 (7.32-7.43); VBG pO2 54 mmHg
[2021-07-29 05:45] LABS: MANUAL DIFF FLAG NO
[2021-07-29 05:49] LABS: Basophils Percent Auto 0.1 % (0-2); Eosinophils Absolute Auto 0.2 X10*3/uL (0.0-0.4); Eosinophils Percent Auto 2.4 % (0-4); Imm Gran Abs Auto 0.03 X10*3/uL (0.00-0.03); Imm Gran Pct Auto 0.4 % (0.0-0.4); Lymphocytes Absolute Auto 2.1 X10*3/uL (1.2-4.9); Lymphocytes Percent Auto 31.2 % (20-40); Mean Corpuscular HGB Conc 34.2 g/dl (31.0-35.0); Mean Corpuscular Volume 87.7 fL (80.0-98.0); Monocytes Absolute Auto 0.6 X10*3/uL (0.1-1.2); Monocytes Percent Auto 8.4 % (2-11); Neutrophils Absolute Auto 3.9 x10*3/uL (2.0-8.3); Neutrophils Percent Auto 57.5 % (45-73); Platelet Count 145 X10*3/uL (160-400); Red Blood Count 2.27 X10*6/uL (4.20-5.50); Red Cell Distribution Width 13.3 % (11.0-16.0); White Blood Count 6.8 X10*3/uL (4.8-10.8)
[2021-07-29 05:59] LABS: Lactic Acid 1.3 mmol/L (0.5-2.0)
[2021-07-29 06:02] LABS: Hemoglobin 6.8 g/dl (12.0-16.0)
[2021-07-29 06:03] LABS: Hematocrit 19.9 % (37.0-47.0)
[2021-07-29 06:09] LABS: Alanine Aminotransferase 63 U/L (0-31); Albumin Level 2.6 g/dL (3.5-5.0); Alkaline Phosphatase 110 U/L (39-117); Anion Gap 12 (12-20); Aspartate Amino Transferase 45 U/L (5-31); Bilirubin Total 0.5 mg/dL (0.0-1.0); Blood Urea Nitrogen 61 mg/dL (9-16); Calcium 7.8 mg/dL (8.4-10.2); Carbon Dioxide 25 mmol/L (22-29); Chloride 110 mmol/L (96-108); Creatinine Clr Calc Pharmacy 18.3; Estimated Glomerular Filt Rate 15; Glucose Random 248 mg/dL (60-115); Magnesium 1.6 mg/dL (1.6-2.6); Phosphorus 3.8 mg/dL (2.7-4.5); Potassium 3.1 mmol/L (3.3-5.1); Sodium 144 mmol/L (135-145); Total Protein 4.5 g/dL (6.5-8.0)
[2021-07-29 06:10] LABS: Troponin-I High Sensitivity 8.4 ng/L (<3.5-17.0)
[2021-07-29] MEDS: Pantoprazole Sodium 40 MG/10 ML VIAL IVPUSH (06:29)
[2021-07-29 08:09] LABS: Glucose, Whole Blood 147 mg/dL (60-115)
[2021-07-29 08:09] LABS: Venous Blood Gas Refer to POC result
[2021-07-29] MEDS: Calcium Carbonate 750 MG TAB.CHEW PO (08:53)
[2021-07-29] MEDS: Potassium Chloride/H20 10 MEQ/100 ML PIGGYBACK 100 MEQ IV ×4 (08:53→13:17)
[2021-07-29] MEDS: Magnesium Sulfate/H2O 2 GM/50 ML PIGGYBACK IV (08:53)
[2021-07-29] MEDS: Albumin Human 25 % 100 ML IV (08:54)
--- NOTE | 2021-07-29 09:00 | PM.CCPN ---
Subjective Subjective Date of Service: 07/29/21 Interval History: 65-year-old lady with underlying history of diabetes mellitus, CAD, CHF, obesity, sleep apnea, asthma, alcohol dependence, chronic pancreatitis, recent admission for electrolyte abnormalities admitted on 07/29/2021 with complaints of midsternal pain. On ER evaluation patient has had cardiac etiologies and pancreatitis ruled out. She was noted to have significant metabolic acidosis with acute renal failure and hyperkalemia. Nephrology was consulted. Patient was started on bicarbonate drip and admitted to intensive care unit. CT abdomen demonstrated some thickening of bowel wall, but no other acute findings. No events overnight. Metabolic acidosis and hyperkalemia resolved. Critical Care Time (minutes): 0 Physical Exam Vital Signs: Vital Signs: Last Vital Signs Temp 99.3 F 07/29/21 08:00 Pulse 95 07/29/21 08:00 Resp 17 07/29/21 08:00 BP 120/51 L 07/29/21 08:00 Pulse Ox 99 07/29/21 08:00 BMI result Body Mass Index 26.2 Const: General: no acute distress, alert and awake Eyes: Sclerae: sclerae normal EOM: EOMs intact bilaterally Neck: Neck: Yes no lymphadenopathy, Yes trachea midline and Yes supple Resp: Effort & Inspection: normal respiratory effort and no respiratory distress Auscultation: clear to auscultation bilaterally Cardio: Rate: regular rate Rhythm: regular rhythm Heart sounds: no gallops, no murmurs and no rubs GI: Palpation (GI): Soft to palpation and Other GI palpation findings present ( Nontender) Auscultation: normal bowel sounds Extrem: General: Yes no pedal edema, No clubbing and No cyanosis Objective Data Labs CBC & Chem 7: 07/29/21 05:39 07/29/21 05:39 Labs: Laboratory Results - last 24 hr 07/28/21 07/28/21 07/28/21 07:34 09:47 09:47 WBC RBC Hgb Hct MCV MCH MCHC RDW Plt Count MPV Immature Gran % (Auto) Neut % (Auto) Lymph % (Auto) Mcpherson % (Auto) Eos % (Auto) Baso % (Auto) Lymph # (Auto) Mcpherson # (Auto) Eos # (Auto) Baso # (Auto) Abs Immat Gran (auto) Absolute Neuts (auto) Absolute Nucleated RBC Nucleated RBC % (auto) Smear Path Review VBG pH VBG pCO2 VBG pO2 VBG HCO3 VBG O2 Saturation VBG Base Excess Sodium Potassium Chloride Carbon Dioxide Anion Gap BUN Creatinine Estim Creat Clear Calc Estimated GFR POC Glucose Random Glucose Lactic Acid 2.7 H* Lactic Acid F/U @ 2Hr Calcium Phosphorus Magnesium Total Bilirubin AST ALT Alkaline Phosphatase Total Creatine Kinase 2015 H Troponin I High Sens Total Protein Albumin Urine Color YELLOW Urine Appearance HAZY Urine pH 5.5 Ur Specific Shepherd 1.025 Urine Protein 1+ H Urine Glucose (UA) NEG Urine Ketones NEG Urine Blood 3+ H Urine Nitrite NEG Ur Leukocyte Esterase NEG Urine RBC 1-4 Urine WBC 1-4 Ur Squamous Epith Cells 1+ Amorphous Sediment 2+ Urine Bacteria 1+ Acetone, Qual Blood Type Antibody Screen Crossmatch 07/28/21 07/28/21 07/28/21 09:47 09:53 11:54 WBC RBC Hgb Hct MCV MCH MCHC RDW Plt Count MPV Immature Gran % (Auto) Neut % (Auto) Lymph % (Auto) Mcpherson % (Auto) Eos % (Auto) Baso % (Auto) Lymph # (Auto) Mcpherson # (Auto) Eos # (Auto) Baso # (Auto) Abs Immat Gran (auto) Absolute Neuts (auto) Absolute Nucleated RBC Nucleated RBC % (auto) Smear Path Review VBG pH 7.03 L* VBG pCO2 31 VBG pO2 82 VBG HCO3 8 L VBG O2 Saturation 94.0 VBG Base Excess -20.5 Sodium 142 Potassium 6.4 H* 6.0 H* Chloride 127 H Carbon Dioxide 6 L* Anion Gap 15 BUN 76 H Creatinine 3.19 H Estim Creat Clear Calc 16.0 Estimated GFR 15 POC Glucose Random Glucose 115 Lactic Acid Lactic Acid F/U @ 2Hr Calcium 8.5 Phosphorus Magnesium Total Bilirubin AST ALT Alkaline Phosphatase Total Creatine Kinase Troponin I High Sens Total Protein Albumin Urine Color Urine Appearance Urine pH Ur Specific Shepherd Urine Protein Urine Glucose (UA) Urine Ketones Urine Blood Urine Nitrite Ur Leukocyte Esterase Urine RBC Urine WBC Ur Squamous Epith Cells Amorphous Sediment Urine Bacteria Acetone, Qual Blood Type Antibody Screen Crossmatch 07/28/21 07/28/21 07/28/21 11:57 12:29 13:07 WBC RBC Hgb Hct MCV MCH MCHC RDW Plt Count MPV Immature Gran % (Auto) Neut % (Auto) Lymph % (Auto) Mcpherson % (Auto) Eos % (Auto) Baso % (Auto) Lymph # (Auto) Mcpherson # (Auto) Eos # (Auto) Baso # (Auto) Abs Immat Gran (auto) Absolute Neuts (auto) Absolute Nucleated RBC Nucleated RBC % (auto) Smear Path Review VBG pH VBG pCO2 VBG pO2 VBG HCO3 VBG O2 Saturation VBG Base Excess Sodium Potassium Chloride Carbon Dioxide Anion Gap BUN Creatinine Estim Creat Clear Calc Estimated GFR POC Glucose 104 99 Random Glucose Lactic Acid Lactic Acid F/U @ 2Hr 1.2 Calcium Phosphorus Magnesium Total Bilirubin AST ALT Alkaline Phosphatase Total Creatine Kinase Troponin I High Sens Total Protein Albumin Urine Color Urine Appearance Urine pH Ur Specific Shepherd Urine Protein Urine Glucose (UA) Urine Ketones Urine Blood Urine Nitrite Ur Leukocyte Esterase Urine RBC Urine WBC Ur Squamous Epith Cells Amorphous Sediment Urine Bacteria Acetone, Qual Blood Type Antibody Screen Crossmatch 07/28/21 07/28/21 07/28/21 16:12 17:13 17:16 WBC RBC Hgb Hct MCV MCH MCHC RDW Plt Count MPV Immature Gran % (Auto) Neut % (Auto) Lymph % (Auto) Mcpherson % (Auto) Eos % (Auto) Baso % (Auto) Lymph # (Auto) Mcpherson # (Auto) Eos # (Auto) Baso # (Auto) Abs Immat Gran (auto) Absolute Neuts (auto) Absolute Nucleated RBC Nucleated RBC % (auto) Smear Path Review VBG pH 7.18 L* VBG pCO2 25 VBG pO2 44 VBG HCO3 9 L VBG O2 Saturation 72.0 VBG Base Excess -16.9 Sodium 142 Potassium 4.9 Chloride 123 H Carbon Dioxide 6 L* Anion Gap 18 BUN 72 H Creatinine 3.19 H Estim Creat Clear Calc 16.0 Estimated GFR 15 POC Glucose 120 H Random Glucose 172 H Lactic Acid Lactic Acid F/U @ 2Hr Calcium 8.4 Phosphorus Magnesium Total Bilirubin AST ALT Alkaline Phosphatase Total Creatine Kinase 1948 H Troponin I High Sens Total Protein Albumin Urine Color Urine Appearance Urine pH Ur Specific Shepherd Urine Protein Urine Glucose (UA) Urine Ketones Urine Blood Urine Nitrite Ur Leukocyte Esterase Urine RBC Urine WBC Ur Squamous Epith Cells Amorphous Sediment Urine Bacteria Acetone, Qual Blood Type Antibody Screen Crossmatch 07/28/21 07/28/21 07/28/21 18:27 21:06 23:12 WBC RBC Hgb Hct MCV MCH MCHC RDW Plt Count MPV Immature Gran % (Auto) Neut % (Auto) Lymph % (Auto) Mcpherson % (Auto) Eos % (Auto) Baso % (Auto) Lymph # (Auto) Mcpherson # (Auto) Eos # (Auto) Baso # (Auto) Abs Immat Gran (auto) Absolute Neuts (auto) Absolute Nucleated RBC Nucleated RBC % (auto) Smear Path Review VBG pH 7.38 VBG pCO2 28 VBG pO2 41 VBG HCO3 17 L VBG O2 Saturation 71.0 VBG Base Excess -6.8 Sodium Potassium Chloride Carbon Dioxide Anion Gap BUN Creatinine Estim Creat Clear Calc Estimated GFR POC Glucose 310 H Random Glucose Lactic Acid Lactic Acid F/U @ 2Hr Calcium Phosphorus 5.4 H Magnesium Total Bilirubin AST ALT Alkaline Phosphatase Total Creatine Kinase Troponin I High Sens Total Protein Albumin Urine Color Urine Appearance Urine pH Ur Specific Shepherd Urine Protein Urine Glucose (UA) Urine Ketones Urine Blood Urine Nitrite Ur Leukocyte Esterase Urine RBC Urine WBC Ur Squamous Epith Cells Amorphous Sediment Urine Bacteria Acetone, Qual Negative Blood Type Antibody Screen Crossmatch 07/28/21 07/29/21 07/29/21 23:14 02:20 05:35 WBC RBC Hgb Hct MCV MCH MCHC RDW Plt Count MPV Immature Gran % (Auto) Neut % (Auto) Lymph % (Auto) Mcpherson % (Auto) Eos % (Auto) Baso % (Auto) Lymph # (Auto) Mcpherson # (Auto) Eos # (Auto) Baso # (Auto) Abs Immat Gran (auto) Absolute Neuts (auto) Absolute Nucleated RBC Nucleated RBC % (auto) Smear Path Review VBG pH 7.51 H VBG pCO2 35 VBG pO2 54 VBG HCO3 28 H VBG O2 Saturation 88.0 VBG Base Excess 5.3 Sodium 141 Potassium 4.1 Chloride 116 H Carbon Dioxide 15 L Anion Gap 14 BUN 67 H Creatinine 3.26 H Estim Creat Clear Calc 15.6 Estimated GFR 14 POC Glucose 250 H Random Glucose 357 H* Lactic Acid Lactic Acid F/U @ 2Hr Calcium 7.8 L D Phosphorus Magnesium Total Bilirubin AST ALT Alkaline Phosphatase Total Creatine Kinase Troponin I High Sens Total Protein Albumin Urine Color Urine Appearance Urine pH Ur Specific Shepherd Urine Protein Urine Glucose (UA) Urine Ketones Urine Blood Urine Nitrite Ur Leukocyte Esterase Urine RBC Urine WBC Ur Squamous Epith Cells Amorphous Sediment Urine Bacteria Acetone, Qual Blood Type Antibody Screen Crossmatch 07/29/21 07/29/21 07/29/21 05:39 05:39 05:39 WBC 6.8 RBC 2.27 L D Hgb 6.8 L* D Hct 19.9 L* D MCV 87.7 D MCH 30.0 MCHC 34.2 RDW 13.3 Plt Count 145 L MPV 10.0 Immature Gran % (Auto) 0.4 Neut % (Auto) 57.5 Lymph % (Auto) 31.2 Mcpherson % (Auto) 8.4 Eos % (Auto) 2.4 Baso % (Auto) 0.1 Lymph # (Auto) 2.1 Mcpherson # (Auto) 0.6 Eos # (Auto) 0.2 Baso # (Auto) 0.0 Abs Immat Gran (auto) 0.03 Absolute Neuts (auto) 3.9 Absolute Nucleated RBC 0.000 Nucleated RBC % (auto) 0.0 Smear Path Review Cancelled VBG pH VBG pCO2 VBG pO2 VBG HCO3 VBG O2 Saturation VBG Base Excess Sodium 144 Potassium 3.1 L D Chloride 110 H Carbon Dioxide 25 Anion Gap 12 BUN 61 H Creatinine 3.08 H Estim Creat Clear Calc 18.3 Estimated GFR 15 POC Glucose Random Glucose 248 H Lactic Acid Lactic Acid F/U @ 2Hr Calcium 7.8 L Phosphorus 3.8 Magnesium 1.6 Total Bilirubin 0.5 AST 45 H ALT 63 H Alkaline Phosphatase 110 D Total Creatine Kinase 1509 H Troponin I High Sens 8.4 D Total Protein 4.5 L D Albumin 2.6 L D Urine Color Urine Appearance Urine pH Ur Specific Shepherd Urine Protein Urine Glucose (UA) Urine Ketones Urine Blood Urine Nitrite Ur Leukocyte Esterase Urine RBC Urine WBC Ur Squamous Epith Cells Amorphous Sediment Urine Bacteria Acetone, Qual Blood Type Antibody Screen Crossmatch 07/29/21 07/29/21 07/29/21 05:39 07:16 08:06 WBC RBC Hgb Hct MCV MCH MCHC RDW Plt Count MPV Immature Gran % (Auto) Neut % (Auto) Lymph % (Auto) Mcpherson % (Auto) Eos % (Auto) Baso % (Auto) Lymph # (Auto) Mcpherson # (Auto) Eos # (Auto) Baso # (Auto) Abs Immat Gran (auto) Absolute Neuts (auto) Absolute Nucleated RBC Nucleated RBC % (auto) Smear Path Review VBG pH VBG pCO2 VBG pO2 VBG HCO3 VBG O2 Saturation VBG Base Excess Sodium Potassium Chloride Carbon Dioxide Anion Gap BUN Creatinine Estim Creat Clear Calc Estimated GFR POC Glucose 147 H Random Glucose Lactic Acid 1.3 Lactic Acid F/U @ 2Hr Calcium Phosphorus Magnesium Total Bilirubin AST ALT Alkaline Phosphatase Total Creatine Kinase Troponin I High Sens Total Protein Albumin Urine Color Urine Appearance Urine pH Ur Specific Shepherd Urine Protein Urine Glucose (UA) Urine Ketones Urine Blood Urine Nitrite Ur Leukocyte Esterase Urine RBC Urine WBC Ur Squamous Epith Cells Amorphous Sediment Urine Bacteria Acetone, Qual Blood Type O Negative Antibody Screen NEGATIVE Crossmatch See Detail Progress Note: A&P Assessment and plan (1) Enteritis: Status: Acute (2) ANGELY (acute kidney injury): Status: Acute (3) Rhabdomyolysis: Status: Acute (4) HTN (hypertension): Status: Acute (5) DMII (diabetes mellitus, type 2): Status: Acute Plan Assessment: 65-year-old lady with multiple medical problems admitted with acute metabolic acidosis likely secondary to acute renal failure of unclear etiology, likely with component of intravascular volume depletion. Plan: Neuro: No acute issues. Cardiac: No acute issues. Underlying chronic diastolic congestive heart failure. Pulmonary: No acute issues. Underlying asthma. Renal: Acute renal failure, non oliguric. Acute metabolic acidosis and hyperkalemia, resolved. Nephrology evaluation is pending. Now off bicarbonate drip. Rhabdomyolysis improved. Endo: No acute issues. GI: CT abdomen and pelvis with mild thickening of bowel wall, but no other acute findings. Possible ischemic versus infectious enteritis. Continues on Levaquin and Flagyl. Gastroenterology consulted. ID: No acute issues Heme/Onc: Subacute anemia, likely dilutional, though unable to exclude slow GI bleed component. Heparin held. Psych: No acute issues. Miscellaneous: No acute issues. Prophylaxis: Compression devices Diet: Regular Quality Stroke Does the patient have a stroke diagnosis?: No VTE Prior VTE?: No VTE Risk Level:: Medical - moderate - high VTE Device Contraindication: N/A - Device Ordered VTE Drug Contraindication: N/A - Med Ordered
--- NOTE | 2021-07-29 10:04 | PM.GICN ---
History of Present Illness Data of Consult Service Date: 07/29/21 Requesting physician: Stevan Landaverde Primary Care Provider: Myra Persaud, DO HPI Reason for consult: ? Enteritis, ?PUD 65 year old Lao speaking female with diabetes mellitus, CAD, CHF, obesity, sleep apnea, asthma, alcohol dependence, chronic pancreatitis,(known to me from past clinic visits) [place] [facility] [place] 07[place]28[place]21 with 2 day hx of chest pain/upper abdominal pain: MD complaint: chest pain (nausea, malaise, doesn't feel well, no energy, headaches) Severity: mild Quality: aching Relieving factors: nothing Exacerbating factors: movement Context: recent illness (overall doesn't feel well) Associated symptoms: nausea and other (headaches, body aches, malaise, poor PO intake for 2 days) Labs showed metabolic acidosis with elevated BUN and Cr and CPK of 2015 suggestive of Rhabdomyolysis. Stool occult blood was negative. Lactic acid was 2.7 and repeat level was normal Pt was admitted to ICU on 07/28/21 with severe metabolic acidosis, ANGELY, and hyperkalemia and started on IV PPI, antibiotics and bicarbonate infusion. Lab today showed improvement in acidosis and H & H of 6.8 & 19.9 (decreased from9 & 29.9 on admission) Pt was transfused 1 unit of packed RBC and repeat labs showed H & H of 8.1 & 24.2 Pt complains of 10/10 upper abdominal pain yesterday which has improved to 5/10 today. She denies recent change in bowel habits, black stools or rectal bleeding Pt started on a diabetic diet. IMAGING STUDIES: 07/28/[address] SCAN SHOWED (reviewed with Radiology): Multiple loops of small bowel appear mildly thick-walled which can be seen in the setting of enteritis. ? Innumerable coarse calcifications involving the atrophic pancreas compatible with sequelae of chronic pancreatitis.? Pancreatic duct is difficult to definitively discern in the absence of contrast, however is favored to be dilated similar to prior.? ? Serpiginous sclerosis involving the bilateral femoral heads which may reflect sequelae of avascular necrosis. ENDOSCOPIC STUDIES: 10/2019 EGD AND COLONOSCOPY SHOWED: Endoscopy Findings: STOMACH: Gastritis DUODENUM: Normal - biopsied to check for celiac sprue Colonoscopy Findings: Four polyps removed (two were 2.5 to 3 cms) Moderate diverticulosis seen in the left colon Moderate hemorrhoids on retroflexed exam. Rectal bleeding is likely from large SC polyp Plan: Repeat Colonoscopy interval based on path results - in 6 to 12 months to check polypectomy sites in the AC and SC if polyps are adenomatous. Above findings were reviewed with the patient and Gastritis and colon polyps handouts were provided. BIOPSIES SHOWED: A. Small bowel, biopsy: Duodenal mucosa within normal limits. B. Stomach, antrum, biopsy: Antral-type and oxyntic mucosa with moderate chronic inactive inflammation; no Helicobacter organisms seen. C. Cecum, polypectomies: - Tubular adenoma; no high grade dysplasia or carcinoma seen. - Colonic mucosa with prominent lymphoid aggregate; no dysplasia seen. - Fragments of colonic mucosa within normal limits. D. Colon, ascending at 110 cm, polypectomies: - Tubulovillous adenoma (large polyp); no high grade dysplasia or carcinoma seen. - Fragments of tubulovillous adenoma(s); no high grade dysplasia or carcinoma seen. E. Colon, sigmoid at 45 cm, polypectomy: Inflammatory polyp with prolapse and hyperplastic changes. Review of Systems Constitutional: Constitutional: Denies daytime sleepiness, Denies excessive sweating, Denies fatigue, Denies fever(s), Reports lethargy, Denies malaise, Denies night sweats, Denies snoring and Denies weight loss Eyes: Eyes: Denies blurry vision and Denies itchy eyes ENT: Denies nasal congestion, Denies post nasal drip, Denies sinus pain, Denies sinus pressure and Denies other ( Thrush) Cardiovascular: Cardiovascular: Reports chest pain (Midsternal), Denies pedal edema, Denies dyspnea, Denies orthopnea and Denies paroxysmal nocturnal dyspnea Respiratory: Respiratory: Denies cough, Denies hemoptysis, Denies excessive phlegm production, Denies dyspnea, Denies snoring and Denies wheezing Gastrointestinal: Gastrointestinal: Reports abdominal pain and Reports heartburn Musculoskeletal: Musculoskeletal: Denies myalgias, Denies arthralgias and Denies joint swelling Integumentary/Breasts: Skin/Breast: Denies rash Neurologic: Denies memory loss and Denies seizure-like activity Psychiatric: Psychiatric: Denies abnormal sleep pattern, Denies anxiety and Denies memory loss Endocrine: Endocrine: Denies excessive sweating, Denies fatigue and Denies heat intolerance Hematologic/Lymphatic: Hematologic/Lymphatic: Denies easy bruising Allergic/Immunologic: Allergic/Immunologic: Denies itchy eyes, Denies seasonal rhinorrhea and Denies wheezing [facility] Past Medical History Medical History (Updated 08/01/21 @ 15:35 by Libertad Buck MD) Anemia Ascending aorta dilatation Asthma CAD (coronary artery disease) CHF (congestive heart failure) Elevated cholesterol Fatty liver GERD (gastroesophageal reflux disease) History of alcohol dependence HTN (hypertension) Hx of acute pancreatitis Hx of acute renal failure Hx of diabetes with ketoacidosis Hx of non-ST elevation myocardial infarction (NSTEMI) IDDM (insulin dependent diabetes mellitus) Non-ischemic cardiomyopathy Sleep apnea Family History Family History Father History of heart attack Mother No problems noted. Surgical History Surgical History History of cardiac cath History of esophagogastroduodenoscopy (EGD) History of partial hysterectomy Hx of cholecystectomy Hx of colonoscopy Hx of lithotripsy Social History Social History (Updated 08/01/21 @ 14:49 by Anyi Amaya CMA) Household Members: None Housing: Apartment Are you a primary childcare center administrator to a significant other at home: No Do you presently have visiting nurse or other home services: No Alcohol intake: never Patient Tobacco Use Status: Never used Tobacco Advance Directives Date on File: 07/02/21 service: No Current occupational status: disabled Meds Allergies Allergy/AdvReac Type Severity Reaction Status Date / Time simvastatin [SIMVASTATIN] AdvReac Unknown Unknown Verified 08/01/21 14:50 Active Medications: Current Medications Calcium Carbonate (Calcium Carbonate 750 Mg Tab.Chew) 750 mg PO Q4H PRN PRN Reason: Heartburn Last Admin: 07/29/21 08:53 Dose: 750 mg Documented by: Fentanyl (Fentanyl Citrate/Pf 100 Mcg/2 Ml Vial) 25 mcg IVPUSH Q2H PRN; Protocol PRN Reason: Pain, Moderate (Pain Scale 4-6 Metronidazole (Flagyl) 500 mg in 100 mls @ 100 mls/hr IV Q8H DERIC Last Infusion: 07/29/21 03:32 Dose: Infused Documented by: Levofloxacin (Levaquin) 500 mg in 100 mls @ 100 mls/hr IV Q48H DERIC Potassium Chloride () 10 meq in 100 mls @ 100 mls/hr IV Q1H [facility] Stop: 07/29/21 10:59 Last Admin: 07/29/21 08:53 Dose: 100 mls/hr Documented by: Insulin Human Lispro (Insulin Lispro 100 Unit/Ml 3 Ml Vial) 0 unit SUBCUT QIDACHS [facility]; Protocol Last Admin: 07/29/21 08:53 Dose: Not Given Documented by: Pantoprazole Sodium (Pantoprazole Sodium 40 Mg/10 Ml Vial) 40 mg IVPUSH DAILY@0630 [facility] Last Admin: 07/29/21 06:29 Dose: 40 mg Documented by: Pharmacy Consult (Consult Rx Perform Med Rec) 1 each MISCELLANE ONCE PRN PRN Reason: Consult order Home Medications Medication Instructions Recorded Confirmed Last Taken Type albuterol sulfate 90 mcg/actuation 2 puff INHALATION Q4-6H PRN 03/14/20 08/01/21 Unknown History aerosol inhaler carvedilol 3.125 mg tablet 3.125 mg PO BID 03/14/20 08/01/21 07/27/21 History ergocalciferol (vitamin D2) 1,250 1,250 mcg PO MO 03/14/20 08/01/21 07/22/21 History mcg (50,000 unit) capsule (Vitamin D2) folic acid 1 mg tablet 1 mg PO DAILY 03/14/20 08/01/21 07/27/21 History calcium carbonate 200 mg calcium 1 tab PO BID PRN 07/28/20 08/01/21 07/01/21 History (500 mg) chewable tablet (Calcium Antacid) acetaminophen 650 mg 1 tab PO Q8H PRN 07/01/21 08/01/21 Unknown History tablet,extended release baclofen 10 mg tablet 1 tab PO TID PRN 07/01/21 08/01/21 Unknown History fluticasone propionate 110 2 puff INHALATION BID 07/01/21 08/01/21 07/27/21 History mcg/actuation HFA aerosol inhaler (Flovent HFA) gabapentin 100 mg capsule 1 cap PO BEDTIME 07/01/21 08/01/21 07/27/21 History insulin lispro 100 unit/mL 0 unit SUBCUT BID@0730,1130 07/01/21 08/01/21 06/30/21 History subcutaneous pen (Humalog KwikPen (U-100) Insulin) ketotifen fumarate 0.025 % (0.035 1 drp OPHTHALMIC (EYE) BID 07/01/21 08/01/21 07/27/21 History %) eye drops loratadine 10 mg tablet 10 mg PO DAILY 07/01/21 08/01/21 07/27/21 History pantoprazole 40 mg tablet,delayed 1 tab PO BID 07/01/21 08/01/21 07/27/21 History release lidocaine 5 % topical patch 1 patch TOPICAL DAILY 07/28/21 08/01/21 07/27/21 History fwbdos-ayqntdjg-hfnhggy 1 cap PO TIDWM 07/28/21 08/01/21 07/27/21 History 24,000-76,000-120,000 unit capsule,delayed rel (Creon) atorvastatin 80 mg tablet (Lipitor) 80 mg PO DAILY 08/01/21 08/01/21 Unknown History dextrose 1 gram chewable tablet 4 g PO Q15M PRN 08/01/21 08/01/21 Unknown History diclofenac sodium 1 % topical gel 2 g TOPICAL BID PRN 08/01/21 08/01/21 Unknown History metformin 500 mg tablet 2 tab PO DAILY 08/01/21 08/01/21 Unknown History pantoprazole 40 mg tablet,delayed 40 mg PO BID 08/01/21 08/01/21 Unknown History release (Protonix) Physical Exam Vital Signs: Vital Signs: Last Vital Signs Temp 99.3 F 07/29/21 08:00 Pulse 104 H 07/29/21 10:00 Resp 24 H 07/29/21 10:00 BP 114/57 L 07/29/21 10:00 Pulse Ox 98 07/29/21 10:00 BMI result Body Mass Index 26.2 Const: General: no acute distress and ill appearing Nutritional Appearance: overweight Orientation/consciousness: patient oriented x3 Limitations: no limitations HEENT: Head: Yes normal to inspection Ears: hearing grossly normal bilaterally Mouth: Normal oral and palatal mucosa present Eyes: Sclerae: sclerae normal Pupils: Equal, round and reactive pupils present Neck: Neck: Yes normal visual inspection Chest: Chest palpation & inspection: normal inspection of the chest Resp: Effort & Inspection: normal respiratory effort Auscultation: clear to auscultation bilaterally Cardio: Palpation: normal PMI Rate: regular rate Rhythm: regular rhythm Heart sounds: S1 normal heart sound present, S2 normal heart sound present and no murmurs GI: Palpation (GI): Soft to palpation, Tenderness to palpation present (GI) (mild upper abdominal tenderness without rebound) and No hepatosplenomegaly present Auscultation: normal bowel sounds Rectal Exam - Female: deferred Skin: General skin exam: no rashes or lesions noted Neuro: General: patient oriented x3, gait normal and moves all extremities Cranial nerves: Yes Equal, round and reactive pupils present Psych: Appearance: grossly normal Mental Status: mental status grossly normal Results Labs CBC & Chem 7: 07/31/21 06:48 07/31/21 06:48 Labs: Short CBC 07/29/21 Range/Units 05:39 WBC 6.8 (4.8-10.8) X10*3/uL Hgb 6.8 L* D (12.0-16.0) g/dl Hct 19.9 L* D (37.0-47.0) % Plt Count 145 L (160-400) X10*3/uL BMP 07/28/21 07/28/21 07/28/21 09:47 11:54 17:13 Sodium 142 142 Potassium 6.4 H* 6.0 H* 4.9 Chloride 127 H 123 H Carbon Dioxide 6 L* 6 L* BUN 76 H 72 H Creatinine 3.19 H 3.19 H Calcium 8.5 8.4 07/28/21 07/29/21 23:14 05:39 Sodium 141 144 Potassium 4.1 3.1 L D Chloride 116 H 110 H Carbon Dioxide 15 L 25 BUN 67 H 61 H Creatinine 3.26 H 3.08 H Calcium 7.8 L D 7.8 L Cardiac Enzymes 07/28/21 07/29/21 Range/Units 17:13 05:39 Total Creatine Kinase 1948 H 1509 H (26-140) U/L Liver Function 07/29/21 Range/Units 05:39 Total Bilirubin 0.5 (0.0-1.0) mg/dL AST 45 H (5-31) U/L ALT 63 H (0-31) U/L Alkaline Phosphatase 110 D (39-117) U/L Albumin 2.6 L D (3.5-5.0) g/dL Urine 07/28/21 Range/Units 09:47 Urine Color YELLOW Urine Appearance HAZY Urine pH 5.5 (5.0-8.0) Ur Specific [place] 1.025 (1.005-1.025) Urine Protein 1+ H (NEG-TRACE) MG/DL Urine Glucose (UA) NEG (NEG) MG/DL Assessment and Plan (1) History of colon polyps: Status: Acute (2) Chronic pancreatitis: Status: Acute pancreatic calcifications likely due to chronic pancreatitis from long standing ETOH abuse. Pt complains of abdominal pain - worse with eating, nausea and wt loss. (3) Upper abdominal pain: Status: Acute (4) Anemia: Status: Acute (5) Abnormal CT scan, gastrointestinal tract: Status: Acute (6) Elevated LFTs: Status: Acute Plan 65 year old Lao speaking female (understands and is able to speak some Burundian) with diabetes mellitus, CAD, CHF, obesity, sleep apnea, asthma, alcohol dependence, chronic pancreatitis,(known to me from past clinic visits) seen [place] [facility] [place] 07[place]28[place] with 2 day hx of chest pain/upper abdominal pain and poor PO intake. Pt has chronic abdominal pain related to chronic pancreatitis Labs showed metabolic acidosis with elevated BUN and Cr and CPK of 2015 suggestive of Rhabdomyolysis. Stool occult blood was negative. Lactic acid was 2.7 and repeat level was normal Pt was admitted to ICU on 07/28/21 with severe metabolic acidosis, ANGELY, and hyperkalemia and treated with bicarbonate infusion. Lab today showed improvement in acidosis and H & H of 6.8 & 19.9 (decreased from9 & 29.9 on admission) Pt was transfused 1 unit of packed RBC and repeat labs showed H & H of 8.1 & 24.[address] scan showed multiple loops of small bowel appear mildly thick-walled which can be seen in the setting of enteritis. Innumerable coarse calcifications involving the atrophic pancreas compatible with sequelae of chronic pancreatitis.? Small bowel changes are subtle and may be an artifact - pt denies recent change in bowel habits or diarrhea. RECOMMENDATIONS: 1. Agree with IV antibiotics and PPI. 2. Monitor H & H - if remains stable, she can continue PO PPI. If recurrent decrease in H & H, please contact GI to evaluate for EGD. 3. Pt was started on Creon a year ago for chronic pancreatitis - order placed to take with meals. Dr Ortega covering [place] [facility] [place] 07/31/21 Procedures Date of Service Date of Service: 07/29/21
[2021-07-29] MEDS: fentaNYL citrate/PF 100 MCG/2 ML VIAL 25 MCG IVPUSH ×2 (10:51→14:14)
--- NOTE | 2021-07-29 11:32 | PM.PNNEP ---
Subjective Subjective Date of Service: 07/29/21 Interval history: seen and examined discussed with ICU complains of abdominal pain Physical Exam Vital Signs: Vital Signs: Last Vital Signs Temp 99.9 F 07/29/21 11:16 Pulse 94 07/29/21 11:16 Resp 21 H 07/29/21 11:16 BP 109/55 L 07/29/21 11:16 Pulse Ox 97 07/29/21 11:00 BMI result Body Mass Index 29.7 Const: General: alert and awake HEENT: Head: Yes normocephalic and Yes atraumatic Neck: Neck: Yes supple Resp: Auscultation: diminished lung sounds Cardio: Heart sounds: S1 normal heart sound present and S2 normal heart sound present GI: Palpation (GI): Soft to palpation and Tenderness to palpation present (GI) Extrem: General: Yes normal to inspection Objective Data Labs CBC & Chem 7: 07/29/21 05:39 07/29/21 05:39 Labs: Laboratory Results - last 24 hr 07/28/21 07/28/21 07/28/21 11:54 11:57 12:29 WBC RBC Hgb Hct MCV MCH MCHC RDW Plt Count MPV Immature Gran % (Auto) Neut % (Auto) Lymph % (Auto) Josephine % (Auto) Eos % (Auto) Baso % (Auto) Lymph # (Auto) Josephine # (Auto) Eos # (Auto) Baso # (Auto) Abs Immat Gran (auto) Absolute Neuts (auto) Absolute Nucleated RBC Nucleated RBC % (auto) Smear Path Review VBG pH VBG pCO2 VBG pO2 VBG HCO3 VBG O2 Saturation VBG Base Excess Sodium 142 Potassium 6.0 H* Chloride 127 H Carbon Dioxide 6 L* Anion Gap 15 BUN 76 H Creatinine 3.19 H Estim Creat Clear Calc 16.0 Estimated GFR 15 POC Glucose 104 Random Glucose 115 Lactic Acid Lactic Acid F/U @ 2Hr 1.2 Calcium 8.5 Phosphorus Magnesium Total Bilirubin AST ALT Alkaline Phosphatase Total Creatine Kinase Troponin I High Sens Total Protein Albumin Acetone, Qual Blood Type Antibody Screen Crossmatch 07/28/21 07/28/21 07/28/21 13:07 16:12 17:13 WBC RBC Hgb Hct MCV MCH MCHC RDW Plt Count MPV Immature Gran % (Auto) Neut % (Auto) Lymph % (Auto) Josephine % (Auto) Eos % (Auto) Baso % (Auto) Lymph # (Auto) Josephine # (Auto) Eos # (Auto) Baso # (Auto) Abs Immat Gran (auto) Absolute Neuts (auto) Absolute Nucleated RBC Nucleated RBC % (auto) Smear Path Review VBG pH VBG pCO2 VBG pO2 VBG HCO3 VBG O2 Saturation VBG Base Excess Sodium 142 Potassium 4.9 Chloride 123 H Carbon Dioxide 6 L* Anion Gap 18 BUN 72 H Creatinine 3.19 H Estim Creat Clear Calc 16.0 Estimated GFR 15 POC Glucose 99 120 H Random Glucose 172 H Lactic Acid Lactic Acid F/U @ 2Hr Calcium 8.4 Phosphorus Magnesium Total Bilirubin AST ALT Alkaline Phosphatase Total Creatine Kinase 1948 H Troponin I High Sens Total Protein Albumin Acetone, Qual Blood Type Antibody Screen Crossmatch 07/28/21 07/28/21 07/28/21 17:16 18:27 21:06 WBC RBC Hgb Hct MCV MCH MCHC RDW Plt Count MPV Immature Gran % (Auto) Neut % (Auto) Lymph % (Auto) Josephine % (Auto) Eos % (Auto) Baso % (Auto) Lymph # (Auto) Josephine # (Auto) Eos # (Auto) Baso # (Auto) Abs Immat Gran (auto) Absolute Neuts (auto) Absolute Nucleated RBC Nucleated RBC % (auto) Smear Path Review VBG pH 7.18 L* VBG pCO2 25 VBG pO2 44 VBG HCO3 9 L VBG O2 Saturation 72.0 VBG Base Excess -16.9 Sodium Potassium Chloride Carbon Dioxide Anion Gap BUN Creatinine Estim Creat Clear Calc Estimated GFR POC Glucose 310 H Random Glucose Lactic Acid Lactic Acid F/U @ 2Hr Calcium Phosphorus 5.4 H Magnesium Total Bilirubin AST ALT Alkaline Phosphatase Total Creatine Kinase Troponin I High Sens Total Protein Albumin Acetone, Qual Negative Blood Type Antibody Screen Crossmatch 07/28/21 07/28/21 07/29/21 23:12 23:14 02:20 WBC RBC Hgb Hct MCV MCH MCHC RDW Plt Count MPV Immature Gran % (Auto) Neut % (Auto) Lymph % (Auto) Josephine % (Auto) Eos % (Auto) Baso % (Auto) Lymph # (Auto) Josephine # (Auto) Eos # (Auto) Baso # (Auto) Abs Immat Gran (auto) Absolute Neuts (auto) Absolute Nucleated RBC Nucleated RBC % (auto) Smear Path Review VBG pH 7.38 VBG pCO2 28 VBG pO2 41 VBG HCO3 17 L VBG O2 Saturation 71.0 VBG Base Excess -6.8 Sodium 141 Potassium 4.1 Chloride 116 H Carbon Dioxide 15 L Anion Gap 14 BUN 67 H Creatinine 3.26 H Estim Creat Clear Calc 15.6 Estimated GFR 14 POC Glucose 250 H Random Glucose 357 H* Lactic Acid Lactic Acid F/U @ 2Hr Calcium 7.8 L D Phosphorus Magnesium Total Bilirubin AST ALT Alkaline Phosphatase Total Creatine Kinase Troponin I High Sens Total Protein Albumin Acetone, Qual Blood Type Antibody Screen Crossmatch 07/29/21 07/29/21 07/29/21 05:35 05:39 05:39 WBC 6.8 RBC 2.27 L D Hgb 6.8 L* D Hct 19.9 L* D MCV 87.7 D MCH 30.0 MCHC 34.2 RDW 13.3 Plt Count 145 L MPV 10.0 Immature Gran % (Auto) 0.4 Neut % (Auto) 57.5 Lymph % (Auto) 31.2 Josephine % (Auto) 8.4 Eos % (Auto) 2.4 Baso % (Auto) 0.1 Lymph # (Auto) 2.1 Josephine # (Auto) 0.6 Eos # (Auto) 0.2 Baso # (Auto) 0.0 Abs Immat Gran (auto) 0.03 Absolute Neuts (auto) 3.9 Absolute Nucleated RBC 0.000 Nucleated RBC % (auto) 0.0 Smear Path Review Cancelled VBG pH 7.51 H VBG pCO2 35 VBG pO2 54 VBG HCO3 28 H VBG O2 Saturation 88.0 VBG Base Excess 5.3 Sodium 144 Potassium 3.1 L D Chloride 110 H Carbon Dioxide 25 Anion Gap 12 BUN 61 H Creatinine 3.08 H Estim Creat Clear Calc 18.3 Estimated GFR 15 POC Glucose Random Glucose 248 H Lactic Acid Lactic Acid F/U @ 2Hr Calcium 7.8 L Phosphorus 3.8 Magnesium 1.6 Total Bilirubin 0.5 AST 45 H ALT 63 H Alkaline Phosphatase 110 D Total Creatine Kinase 1509 H Troponin I High Sens Total Protein 4.5 L D Albumin 2.6 L D Acetone, Qual Blood Type Antibody Screen Crossmatch 07/29/21 07/29/21 07/29/21 05:39 05:39 07:16 WBC RBC Hgb Hct MCV MCH MCHC RDW Plt Count MPV Immature Gran % (Auto) Neut % (Auto) Lymph % (Auto) Josephine % (Auto) Eos % (Auto) Baso % (Auto) Lymph # (Auto) Josephine # (Auto) Eos # (Auto) Baso # (Auto) Abs Immat Gran (auto) Absolute Neuts (auto) Absolute Nucleated RBC Nucleated RBC % (auto) Smear Path Review VBG pH VBG pCO2 VBG pO2 VBG HCO3 VBG O2 Saturation VBG Base Excess Sodium Potassium Chloride Carbon Dioxide Anion Gap BUN Creatinine Estim Creat Clear Calc Estimated GFR POC Glucose Random Glucose Lactic Acid 1.3 Lactic Acid F/U @ 2Hr Calcium Phosphorus Magnesium Total Bilirubin AST ALT Alkaline Phosphatase Total Creatine Kinase Troponin I High Sens 8.4 D Total Protein Albumin Acetone, Qual Blood Type O Negative Antibody Screen NEGATIVE Crossmatch See Detail 07/29/21 08:06 WBC RBC Hgb Hct MCV MCH MCHC RDW Plt Count MPV Immature Gran % (Auto) Neut % (Auto) Lymph % (Auto) Josephine % (Auto) Eos % (Auto) Baso % (Auto) Lymph # (Auto) Josephine # (Auto) Eos # (Auto) Baso # (Auto) Abs Immat Gran (auto) Absolute Neuts (auto) Absolute Nucleated RBC Nucleated RBC % (auto) Smear Path Review VBG pH VBG pCO2 VBG pO2 VBG HCO3 VBG O2 Saturation VBG Base Excess Sodium Potassium Chloride Carbon Dioxide Anion Gap BUN Creatinine Estim Creat Clear Calc Estimated GFR POC Glucose 147 H Random Glucose Lactic Acid Lactic Acid F/U @ 2Hr Calcium Phosphorus Magnesium Total Bilirubin AST ALT Alkaline Phosphatase Total Creatine Kinase Troponin I High Sens Total Protein Albumin Acetone, Qual Blood Type Antibody Screen Crossmatch Procedures Date of Service Date of Service: 07/29/21 Assessment & Plan Assessment and plan (1) ANGELY (acute kidney injury): Status: Acute (2) Hypokalemia: Status: Acute Plan ANGELY due to compromised kidney perfusion nd tubular stress ? acute tubular injury CT scan negative for obstruction Scr 1.1 mg/dl last year REC replace potassium blood transfusion for Hb < 7 no indication for ENDOSCOPY NURSE follow kidney function and electrolytes Time Spent With Patient Time: Total time spent is greater than 50% in coordination of care (as documented) at patient's floor/unit and/or counseling patient: Progress Note: Quality Stroke Does the patient have a stroke diagnosis?: No
[2021-07-29 11:56] LABS: Glucose, Whole Blood 114 mg/dL (60-115)
--- NOTE | 2021-07-29 13:34 | HO.PM.IMPN ---
Subjective Subjective Date of Service: 07/29/21 Interval History: This history was taken in Kyrgyz from the patient. C/o epigastric pain, no N/V No chest pain No dyspnea Review of Systems Review of Systems: Yes all other systems are reviewed and are negative Physical Exam Vital Signs: Vital Signs: Last Vital Signs Temp 100.9 F H 07/29/21 13:30 Pulse 86 07/29/21 13:30 Resp 20 07/29/21 13:30 BP 128/80 07/29/21 13:30 Pulse Ox 98 07/29/21 12:00 BMI result Body Mass Index 29.7 Gen: in no acute distress HEENT: sclera anicteric, moist mucus membranes Neck: supple Lungs: clear to auscultation bilaterally Heart: regular rate and rhythm, no murmurs Abd: soft, epigastric tendreness without rebound/guarding Ext: no edema Skin: warm/well-perfused Neuro: alert and oriented x3, no focal findings Psych: appropriate affect Objective Data Active Medications Calcium Carbonate (Calcium Carbonate 750 Mg Tab.Chew) 750 mg PO Q4H PRN PRN Reason: Heartburn Last Admin: 07/29/21 08:53 Dose: 750 mg Documented by: CORETTA Fentanyl (Fentanyl Citrate/Pf 100 Mcg/2 Ml Vial) 25 mcg IVPUSH Q2H PRN; Protocol PRN Reason: Pain, Moderate (Pain Scale 4-6 Last Admin: 07/29/21 10:51 Dose: 25 mcg Documented by: CORETTA Metronidazole (Flagyl) 500 mg in 100 mls @ 100 mls/hr IV Q8H [facility] Last Infusion: 07/29/21 11:59 Dose: 0 mls/hr Documented by: CORETTA Levofloxacin (Levaquin) 500 mg in 100 mls @ 100 mls/hr IV Q48H [facility] Insulin Human Lispro (Insulin Lispro 100 Unit/Ml 3 Ml Vial) 0 unit SUBCUT QIDACHS [facility]; Protocol Last Admin: 07/29/21 11:58 Dose: Not Given Documented by: CORETTA Non-Admin Reason: No Insulin Coverage Pantoprazole Sodium (Pantoprazole Sodium 40 Mg/10 Ml Vial) 40 mg IVPUSH DAILY@0630 [facility] Last Admin: 07/29/21 06:29 Dose: 40 mg Documented by: LOI Pharmacy Consult (Consult Rx Perform Med Rec) 1 each MISCELLANE ONCE PRN PRN Reason: Consult order Labs CBC & Chem 7: 07/29/21 05:39 07/29/21 05:39 Labs: Laboratory Results - last 24 hr 07/28/21 07/28/21 07/28/21 13:07 16:12 17:13 MCV MCH MCHC RDW Plt Count MPV Immature Gran % (Auto) Neut % (Auto) Lymph % (Auto) Summers % (Auto) Eos % (Auto) Baso % (Auto) Lymph # (Auto) Summers # (Auto) Eos # (Auto) Baso # (Auto) Abs Immat Gran (auto) Absolute Neuts (auto) Absolute Nucleated RBC Nucleated RBC % (auto) Smear Path Review VBG pH VBG pCO2 VBG pO2 VBG HCO3 VBG O2 Saturation VBG Base Excess Anion Gap 18 Estim Creat Clear Calc 16.0 Estimated GFR 15 POC Glucose 99 120 H Random Glucose 172 H Lactic Acid Calcium 8.4 Phosphorus Magnesium Total Bilirubin AST ALT Alkaline Phosphatase Total Creatine Kinase 1948 H Troponin I High Sens Total Protein Albumin Acetone, Qual Blood Type Antibody Screen Crossmatch 07/28/21 07/28/21 07/28/21 17:16 18:27 21:06 MCV MCH MCHC RDW Plt Count MPV Immature Gran % (Auto) Neut % (Auto) Lymph % (Auto) Summers % (Auto) Eos % (Auto) Baso % (Auto) Lymph # (Auto) Summers # (Auto) Eos # (Auto) Baso # (Auto) Abs Immat Gran (auto) Absolute Neuts (auto) Absolute Nucleated RBC Nucleated RBC % (auto) Smear Path Review VBG pH 7.18 L* VBG pCO2 25 VBG pO2 44 VBG HCO3 9 L VBG O2 Saturation 72.0 VBG Base Excess -16.9 Anion Gap Estim Creat Clear Calc Estimated GFR POC Glucose 310 H Random Glucose Lactic Acid Calcium Phosphorus 5.4 H Magnesium Total Bilirubin AST ALT Alkaline Phosphatase Total Creatine Kinase Troponin I High Sens Total Protein Albumin Acetone, Qual Negative Blood Type Antibody Screen Crossmatch 07/28/21 07/28/21 07/29/21 23:12 23:14 02:20 MCV MCH MCHC RDW Plt Count MPV Immature Gran % (Auto) Neut % (Auto) Lymph % (Auto) Summers % (Auto) Eos % (Auto) Baso % (Auto) Lymph # (Auto) Summers # (Auto) Eos # (Auto) Baso # (Auto) Abs Immat Gran (auto) Absolute Neuts (auto) Absolute Nucleated RBC Nucleated RBC % (auto) Smear Path Review VBG pH 7.38 VBG pCO2 28 VBG pO2 41 VBG HCO3 17 L VBG O2 Saturation 71.0 VBG Base Excess -6.8 Anion Gap 14 Estim Creat Clear Calc 15.6 Estimated GFR 14 POC Glucose 250 H Random Glucose 357 H* Lactic Acid Calcium 7.8 L D Phosphorus Magnesium Total Bilirubin AST ALT Alkaline Phosphatase Total Creatine Kinase Troponin I High Sens Total Protein Albumin Acetone, Qual Blood Type Antibody Screen Crossmatch 07/29/21 07/29/21 07/29/21 05:35 05:39 05:39 MCV 87.7 D MCH 30.0 MCHC 34.2 RDW 13.3 Plt Count 145 L MPV 10.0 Immature Gran % (Auto) 0.4 Neut % (Auto) 57.5 Lymph % (Auto) 31.2 Summers % (Auto) 8.4 Eos % (Auto) 2.4 Baso % (Auto) 0.1 Lymph # (Auto) 2.1 Summers # (Auto) 0.6 Eos # (Auto) 0.2 Baso # (Auto) 0.0 Abs Immat Gran (auto) 0.03 Absolute Neuts (auto) 3.9 Absolute Nucleated RBC 0.000 Nucleated RBC % (auto) 0.0 Smear Path Review Cancelled VBG pH 7.51 H VBG pCO2 35 VBG pO2 54 VBG HCO3 28 H VBG O2 Saturation 88.0 VBG Base Excess 5.3 Anion Gap 12 Estim Creat Clear Calc 18.3 Estimated GFR 15 POC Glucose Random Glucose 248 H Lactic Acid Calcium 7.8 L Phosphorus 3.8 Magnesium 1.6 Total Bilirubin 0.5 AST 45 H ALT 63 H Alkaline Phosphatase 110 D Total Creatine Kinase 1509 H Troponin I High Sens Total Protein 4.5 L D Albumin 2.6 L D Acetone, Qual Blood Type Antibody Screen Crossmatch 07/29/21 07/29/21 07/29/21 05:39 05:39 07:16 MCV MCH MCHC RDW Plt Count MPV Immature Gran % (Auto) Neut % (Auto) Lymph % (Auto) Summers % (Auto) Eos % (Auto) Baso % (Auto) Lymph # (Auto) Summers # (Auto) Eos # (Auto) Baso # (Auto) Abs Immat Gran (auto) Absolute Neuts (auto) Absolute Nucleated RBC Nucleated RBC % (auto) Smear Path Review VBG pH VBG pCO2 VBG pO2 VBG HCO3 VBG O2 Saturation VBG Base Excess Anion Gap Estim Creat Clear Calc Estimated GFR POC Glucose Random Glucose Lactic Acid 1.3 Calcium Phosphorus Magnesium Total Bilirubin AST ALT Alkaline Phosphatase Total Creatine Kinase Troponin I High Sens 8.4 D Total Protein Albumin Acetone, Qual Blood Type O Negative Antibody Screen NEGATIVE Crossmatch See Detail 07/29/21 07/29/21 08:06 11:52 MCV MCH MCHC RDW Plt Count MPV Immature Gran % (Auto) Neut % (Auto) Lymph % (Auto) Summers % (Auto) Eos % (Auto) Baso % (Auto) Lymph # (Auto) Summers # (Auto) Eos # (Auto) Baso # (Auto) Abs Immat Gran (auto) Absolute Neuts (auto) Absolute Nucleated RBC Nucleated RBC % (auto) Smear Path Review VBG pH VBG pCO2 VBG pO2 VBG HCO3 VBG O2 Saturation VBG Base Excess Anion Gap Estim Creat Clear Calc Estimated GFR POC Glucose 147 H 114 Random Glucose Lactic Acid Calcium Phosphorus Magnesium Total Bilirubin AST ALT Alkaline Phosphatase Total Creatine Kinase Troponin I High Sens Total Protein Albumin Acetone, Qual Blood Type Antibody Screen Crossmatch Microbiology Microbiology Results: Microbiology 07/28/21 09:47 Blood Culture - Preliminary Blood - Venous No growth after 24 hours. 07/28/21 09:47 Blood Culture - Preliminary Blood - Venous No growth after 24 hours. Assessment and Plan (1) Acute hyperkalemia: Status: Acute (2) Metabolic acidosis: Status: Acute (3) Rhabdomyolysis: Status: Acute Plan 65yo F with CKD3, DM2, HTN, anemia of chronic disease, chronic pancreatitis presented with midsternal chest pain admitted to ICU 07/28/21 with severe metabolic acidosis, ANGELY, and hyperkalemia # ANGELY/CKD3 # hyperK - resolving s/p bicarbonate gtt, continue IV fluid hydration - hold MTF + lisinopril - Nephrology following # anemia - transfusing pRBCs now, recheck CBC in am, guaiac all stools # enteritis - on levofloxacin d#3, metronidazole d#1, GI consult pending # rhabdomyolysis - continue IV fluid hydration, monitor CPK # chronic HFpEF - hypovolemic, receiving fluids + blood # DM2 - correction-dose lispro # VTE ppx - SCDs Quality Stroke Does the patient have a stroke diagnosis?: No VTE Prior VTE?: No VTE Risk Level:: Medical - moderate - high VTE Device Contraindication: N/A - Device Ordered VTE Drug Contraindication: N/A - Med Ordered
--- NOTE | 2021-07-29 14:00 | CA_ITS ---
Transthoracic Echocardiogram Patient (Last, First, Middle): Amy Walker N Gender: Female Date of : 1955 Age: 65 Procedure Date: 07/29/2021 Procedure Type: Transthoracic Echocardiogram Location: ICU Height: 165.1 cm Weight: 71.22 kg BSA: 1.78 m2 Heart Rate: bpm BP: 114 / 51 mmHg Casting Inspector: TO/YR Referring MD: Stevan Landaverde MD Symptoms: chest pain Study Quality: Fair Conclusions: - Normal left ventricular size, thickness, systolic function, and wall motion. The visually estimated ejection fraction is between 55-60%. - E/E prime ratio is between 8 and 15 consistent with indeterminate filling pressures. - Normal right ventricular cavity size and systolic function. - There is mild dilatation of the ascending aorta and mild dilatation of the aortic arch. Findings Left Ventricle Normal left ventricular size, thickness, systolic function, and wall motion. The visually estimated ejection fraction is between 55-60%. Abnormal diastolic function is noted. Spectral Doppler is indicative of a pseudonormal filling pattern. E/E prime ratio is between 8 and 15 consistent with indeterminate filling pressures. Right Ventricle Normal right ventricular cavity size and systolic function. Atria The left atrium is mildly dilated. Aortic Valve There is a normal trileaflet aortic valve. There is no aortic valve stenosis. There is no aortic valve regurgitation. Mitral Valve The mitral valve appears normal. There is trace mitral valve regurgitation. There is no mitral valve stenosis. Pulmonic Valve The pulmonic valve is likely normal. Tricuspid Valve Normal tricuspid valve structure and function. There is trace tricuspid valve regurgitation. Moderately elevated right atrial pressure. There is no evidence of pulmonary hypertension. Great Vessels There is mild dilatation of the ascending aorta and mild dilatation of the aortic arch. The visualized portions of the pulmonary artery and branches are normal. Venous The inferior vena cava is dilated and collapses greater than 50% with inspiration. Pericardium/Pleural There is no evidence of pericardial effusion. Measurements 2D Linear Measurements IVSd: 0.96 0.6-0.9/0.6-1.0 cm LVIDd: 4.80 3.9-5.3/4.2-5.9 cm LVIDd Index: 2.70 2.4-3.2/2.2-3.1 cm/m2 LVIDs: 2.81 2.0-3.6 cm LVPWd: 0.83 0.7-1.1 cm LA Diam: 3.80 2.7-3.8/3.0-4.0 cm LAIDs Index: 2.13 1.5-2.3 cm/m2 LV Mass: 181.54 67-162/88-224 g LV Mass Index: 101.99 43-95/49-115 g/m2 LVOT Diam: 1.90 3.0+(-)1.3 cm 2D Systolic Function EF 4C: 60.20 >55% EF 2C: 52.50 >55% EF BiP: 56.30 >55% Mitral Valve MV Pk E: 0.88 MV PK A: 0.87 MV Decel Time: 146.00 E/A: 1.00 E'Lateral: 7.94 E'Medial: 8.05 E/E' Med: 10.90 E/E' Lat: 11.10 PHT: 43.00 MVA PHT: 5.12 Decel Latimer: 6.00 Aortic Valve AoV Pk Vaibhav: 1.69 AoV Mn Vaibhav: 1.10 AoV VTI: 0.33 AoV Pk Grad: 11.00 Aov Mn Grad: 5.00 WILDA Cont.VTI: 2.00 LVOT LVOT Pk Vaibhav: 1.06 LVOT Mn Vaibhav: 0.72 LVOT VTI: 0.23 LVOT Pk Grad: 4.00 LVOT Mn Grad: 2.00 LVOT Diam: 1.90 LVOT Area: 2.84 Diastolic Function MV Pk E: 0.88 MV Pk A: 0.87 E/A: 1.00 E'Medial: 8.05 E/E' Med: 10.90 E' Laterial: 7.94 E/E' Lat: 11.10 Right Ventricle TAPSE (mm): 21.60 TVS' Vaibhav: 13.80 Tricuspid Valve TR Pk Vaibhav: 2.08 TR Pk Grad: 17.00 RA Press: 8.00 RVSP: 25.00 Great Vessels Aorta Sinus of Valsalva: 3.41 2.0-3.5 cm Ao Asc: 3.90 2.1-3.4 cm Ao Arch: 3.30 Updated in Other Vendor System with Status of Final Chris Myers MD electronically signed on 07/29/2021 9:57:15 PM with status of Final
[2021-07-29] MEDS: 0.9 % Sodium Chloride 1,000 ML 100 ML IVCONT ×2 (14:14→22:58)
[2021-07-29 15:06] LABS: MANUAL DIFF FLAG NO
[2021-07-29 15:10] LABS: Basophils Percent Auto 0.1 % (0-2); Eosinophils Absolute Auto 0.1 X10*3/uL (0.0-0.4); Eosinophils Percent Auto 1.7 % (0-4); Hematocrit 24.2 % (37.0-47.0); Hemoglobin 8.1 g/dl (12.0-16.0); Imm Gran Abs Auto 0.03 X10*3/uL (0.00-0.03); Imm Gran Pct Auto 0.4 % (0.0-0.4); Lymphocytes Absolute Auto 2.7 X10*3/uL (1.2-4.9); Lymphocytes Percent Auto 36.5 % (20-40); Mean Corpuscular HGB Conc 33.5 g/dl (31.0-35.0); Mean Corpuscular Hemoglobin 30.3 pg (27.0-33.0); Mean Corpuscular Volume 90.6 fL (80.0-98.0); Monocytes Absolute Auto 0.8 X10*3/uL (0.1-1.2); Neutrophils Absolute Auto 3.8 x10*3/uL (2.0-8.3); Neutrophils Percent Auto 51.3 % (45-73); Platelet Count 135 X10*3/uL (160-400); Red Blood Count 2.67 X10*6/uL (4.20-5.50); Red Cell Distribution Width 14.1 % (11.0-16.0); White Blood Count 7.5 X10*3/uL (4.8-10.8)
[2021-07-29 15:19] LABS: Glucose, Whole Blood 80 mg/dL (60-115)
[2021-07-29 15:29] LABS: Anion Gap 13 (12-20); Blood Urea Nitrogen 53 mg/dL (9-16); Calcium 8.1 mg/dL (8.4-10.2); Carbon Dioxide 23 mmol/L (22-29); Chloride 112 mmol/L (96-108); Creatinine Clr Calc Pharmacy 17.4; Estimated Glomerular Filt Rate 16; Glucose Random 106 mg/dL (60-115); Magnesium 1.7 mg/dL (1.6-2.6); Potassium 4.2 mmol/L (3.3-5.1); Sodium 144 mmol/L (135-145)
[2021-07-29] MEDS: Lipase/Prot/Amylase 24/76/120K 1 CAP CAPSULE.DR PO (16:17)
--- NOTE | 2021-07-29 16:19 | MHC.CM.PN ---
Met with pt and dtr / HCP Sara to discuss d/c planning; Pt resides alone and has daily family support. No services or adaptive equipment used: pt has working dm supplies/testing device: Pt states she is receptive to [facility] referral for skilled RN visits r/t ANGELY teaching: broad referrals made - no acceptance at this time. Sara to transport home: Vax x 3 Pfizer, HCP on file and verified. CM to follow.
[2021-07-29 17:21] LABS: Glucose, Whole Blood 167 mg/dL (60-115)
[2021-07-29 17:51] LABS: OBS Int Ctl Valid YES; OBS1 POSITIVE (NEGATIVE)
[2021-07-29 19:52] LABS: Glucose, Whole Blood 169 mg/dL (60-115)
[2021-07-29] MEDS: oxyCODONE HCl Immed Release 5 MG TABLET PO (22:58)
[2021-07-30] MEDS: metroNIDAZOLE/NS 500 MG/100 ML PIGGYBACK 100 MG IV ×3 (02:16→18:12)
[2021-07-30 03:52] VITALS: BP 115/65; PULSE 78; RESP 17; TEMP 37.7; O2SAT 96
[2021-07-30] MEDS: Pantoprazole Sodium 40 MG/10 ML VIAL IVPUSH (06:20)
[2021-07-30 07:17] LABS: Glucose, Whole Blood 108 mg/dL (60-115)
[2021-07-30 07:30] VITALS: BP 139/74; PULSE 76; RESP 20; TEMP 36.3; O2SAT 96
--- NOTE | 2021-07-30 09:03 | MHC.CM.PN ---
CM met with Patient at bedside and then phoned her @ [phone] with the assist of a [place] Telephonic Hand Buffer. 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 Home/no services is the goal for dc and CM has initiated and will follow for dc planning. PCP is Dr. Myra Persaud and Patient has received Moderna vax X3.
[2021-07-30] MEDS: Lipase/Prot/Amylase 24/76/120K 1 CAP CAPSULE.DR PO ×3 (09:16→16:57)
[2021-07-30] MEDS: 0.9 % Sodium Chloride 1,000 ML 100 ML IVCONT ×2 (10:23→18:12)
[2021-07-30 11:02] LABS: Glucose, Whole Blood 176 mg/dL (60-115)
[2021-07-30 11:03] VITALS: BP 137/62; PULSE 74; RESP 20; TEMP 37.1; O2SAT 99
[2021-07-30] MEDS: Insulin Lispro 100 UNIT/ML 3 ML VIAL SUBCUT ×3 (12:04→22:15)
--- NOTE | 2021-07-30 15:22 | HO.PM.IMPN ---
Subjective Subjective Date of Service: 07/30/21 Interval History: history obtained via spool sorter, being followed for acute kidney injury, denies nausea, vomiting , no abdominal pain, dizziness improved, no other acute issues overnight, denies fever chills. Review of Systems Review of Systems: Yes all other systems are reviewed and are negative Physical Exam Vital Signs: Vital Signs: Last Vital Signs Temp 98.8 F 07/30/21 11:03 Pulse 74 07/30/21 11:03 Resp 20 07/30/21 11:03 BP 137/62 07/30/21 11:03 Pulse Ox 99 07/30/21 11:03 BMI result Body Mass Index 29.7 Const: Other: Gen: awake alert, in no acute distress Neck: supple, no JVD Lungs: clear to auscultation bilaterally, no wheeze, no rhonchi Heart: regular rate and rhythm, no murmurs Abd: soft, nontender, bowel sounds audible Ext: no edema Skin: warm/well-perfused Neuro: alert and oriented x3, no focal findings Psych: appropriate affect Objective Data Active Medications Lipase/Protease/Amylase (Lipase/Prot/Amylase 24/76/120k 1 Cap Capsule.Dr) 1 cap PO TIDWM [facility] Last Admin: 07/30/21 12:04 Dose: 1 cap Documented by: JACQUELINE Calcium Carbonate (Calcium Carbonate 750 Mg Tab.Chew) 750 mg PO Q4H PRN PRN Reason: Heartburn Last Admin: 07/29/21 08:53 Dose: 750 mg Documented by: CORETTA Fentanyl (Fentanyl Citrate/Pf 100 Mcg/2 Ml Vial) 25 mcg IVPUSH Q2H PRN; Protocol PRN Reason: Pain, Moderate (Pain Scale 4-6 Last Admin: 07/29/21 14:14 Dose: 25 mcg Documented by: CORETTA Metronidazole (Flagyl) 500 mg in 100 mls @ 100 mls/hr IV Q8H [facility] Last Infusion: 07/30/21 12:05 Dose: 0 mls/hr Documented by: JACQUELINE Levofloxacin (Levaquin) 500 mg in 100 mls @ 100 mls/hr IV Q48H [facility] Sodium Chloride (Ns) 1,000 mls @ 100 mls/hr IVCONT .Q10H [facility] Last Admin: 07/30/21 10:23 Dose: 100 mls/hr Documented by: JACQUELINE Insulin Human Lispro (Insulin Lispro 100 Unit/Ml 3 Ml Vial) 0 unit SUBCUT QIDACHS [facility]; Protocol Last Admin: 07/30/21 12:04 Dose: 2 unit Documented by: JACQUELINE Pantoprazole Sodium (Pantoprazole Sodium 40 Mg/10 Ml Vial) 40 mg IVPUSH DAILY@0630 [facility] Last Admin: 07/30/21 06:20 Dose: 40 mg Documented by: TAMIKO Pharmacy Consult (Consult Rx Perform Med Rec) 1 each MISCELLANE ONCE PRN PRN Reason: Consult order Labs CBC & Chem 7: 07/29/21 15:00 07/29/21 15:01 Labs: Laboratory Results - last 24 hr 07/29/21 07/29/21 07/29/21 15:00 15:01 17:17 Anion Gap 13 Estim Creat Clear Calc 17.4 Estimated GFR 16 POC Glucose 167 H Random Glucose 106 Lactic Acid 1.0 Calcium 8.1 L Magnesium 1.7 Stool Occult Blood 07/29/21 07/29/21 07/30/21 19:16 Unknown 07:07 Anion Gap Estim Creat Clear Calc Estimated GFR POC Glucose 169 H 108 Random Glucose Lactic Acid Calcium Magnesium Stool Occult Blood POSITIVE 07/30/21 10:51 Anion Gap Estim Creat Clear Calc Estimated GFR POC Glucose 176 H Random Glucose Lactic Acid Calcium Magnesium Stool Occult Blood Microbiology Microbiology Results: Microbiology 07/28/21 09:47 Blood Culture - Preliminary Blood - Venous No growth after 48 hours. 07/28/21 09:47 Blood Culture - Preliminary Blood - Venous No growth after 48 hours. Assessment and Plan (1) Acute hyperkalemia: Status: Acute (2) Metabolic acidosis: Status: Acute (3) Rhabdomyolysis: Status: Acute Plan 65yo F with CKD3, DM2, HTN, anemia of chronic disease, chronic pancreatitis presented with midsternal chest pain, admitted to ICU 07/28/21 with severe metabolic acidosis, ANGELY, and hyperkalemia # ANGELY/CKD3 with hyperkalemia and acidosis - hyperkalemia and acidosis resolved, s/p bicarbonate gtt, continue IV fluid hydration, creatinine 2.94 not close to baseline of 2, - hold MTF + lisinopril - follow BMP # acute on chronic anemia no acute GI blood loss - status post blood transfusion repeat hematocrit 24.2 close to baseline, stool guaiac positive, recent workup for a study B12 and folate unremarkable, being followed by Dr. Buck as outpatient # enteritis - on levofloxacin d#4, metronidazole d#2, seen by Dr. Breen she agree with current IV antibiotics and PPI recommend to follow H&H if hematocrit drop will re-consult GI for upper endoscopy # chronic pancreatitis continue Creon # rhabdomyolysis - CPK trended down, now 1509, continue IV fluid # chronic HFpEF - hypovolemic, receiving fluids safe, will follow closely for fluid overload # DM2 - stable blood sugar, continue correction-dose lispro # VTE ppx - SCDs Quality Stroke Does the patient have a stroke diagnosis?: No VTE Prior VTE?: No VTE Risk Level:: Medical - moderate - high VTE Device Contraindication: N/A - Device Ordered VTE Drug Contraindication: N/A - Med Ordered
[2021-07-30 15:32] VITALS: BP 158/73; PULSE 67; RESP 16; TEMP 36.9; O2SAT 99
--- NOTE | 2021-07-30 16:03 | PM.PNNEP ---
Subjective Subjective Date of Service: 07/30/21 Interval history: seen and examined no complaints Physical Exam Vital Signs: Vital Signs: Last Vital Signs Temp 98.5 F 07/30/21 15:32 Pulse 67 07/30/21 15:32 Resp 16 07/30/21 15:32 BP 158/73 H 07/30/21 15:32 Pulse Ox 99 07/30/21 15:32 BMI result Body Mass Index 29.7 Const: General: alert and awake HEENT: Head: Yes normocephalic and Yes atraumatic Neck: Neck: Yes supple Resp: Auscultation: diminished lung sounds Cardio: Heart sounds: S1 normal heart sound present and S2 normal heart sound present GI: Palpation (GI): Soft to palpation and Tenderness to palpation present (GI) Extrem: General: Yes normal to inspection Objective Data Labs CBC & Chem 7: 07/29/21 15:00 07/29/21 15:01 Labs: Laboratory Results - last 24 hr 07/29/21 07/29/21 07/29/21 17:17 19:16 Unknown POC Glucose 167 H 169 H Stool Occult Blood POSITIVE 07/30/21 07/30/21 07:07 10:51 POC Glucose 108 176 H Stool Occult Blood Microbiology Microbiology Results: Microbiology 07/28/21 09:47 Blood - Venous Blood Culture - Preliminary No growth after 48 hours. 07/28/21 09:47 Blood - Venous Blood Culture - Preliminary No growth after 48 hours. Procedures Date of Service Date of Service: 07/30/21 Assessment & Plan Assessment and plan (1) ANGELY (acute kidney injury): Status: Acute (2) Hypokalemia: Status: Acute Plan ANGELY due to compromised kidney perfusion and tubular stress ? acute tubular injury CT scan negative for obstruction Scr 1.1 mg/dl last year REC blood transfusion for Hb < 7 no indication for EDGE BANDER HAND follow kidney function and electrolytes Time Spent With Patient Time: Total time spent is greater than 50% in coordination of care (as documented) at patient's floor/unit and/or counseling patient: Progress Note: Quality Stroke Does the patient have a stroke diagnosis?: No
[2021-07-30 16:12] LABS: Glucose, Whole Blood 161 mg/dL (60-115)
[2021-07-30 19:13] VITALS: BP 156/74; PULSE 77; RESP 14; TEMP 37.2; O2SAT 100
[2021-07-30] MEDS: levoFLOXacin/D5W 500 MG/100 ML PIGGYBACK 100 MG IV (20:31)
[2021-07-30 20:44] LABS: Glucose, Whole Blood 153 mg/dL (60-115)
[2021-07-30] MEDS: oxyCODONE HCl Immed Release 5 MG TABLET PO (23:44)
[2021-07-31] VITALS: BP 144/68; PULSE 79; RESP 17; TEMP 36.6; O2SAT 96
[2021-07-31] MEDS: metroNIDAZOLE/NS 500 MG/100 ML PIGGYBACK 100 MG IV ×2 (01:57→10:01)
[2021-07-31 03:44] VITALS: BP 142/66; PULSE 68; RESP 18; TEMP 36.8; O2SAT 95
[2021-07-31] MEDS: Pantoprazole Sodium 40 MG/10 ML VIAL IVPUSH (06:18)
[2021-07-31] MEDS: 0.9 % Sodium Chloride 1,000 ML 100 ML IVCONT (06:18)
[2021-07-31 07:50] LABS: Glucose, Whole Blood 127 mg/dL (60-115)
[2021-07-31 07:51] LABS: Hematocrit 27.1 % (37.0-47.0); Hemoglobin 8.6 g/dl (12.0-16.0); Mean Corpuscular HGB Conc 31.7 g/dl (31.0-35.0); Mean Corpuscular Hemoglobin 29.9 pg (27.0-33.0); Mean Corpuscular Volume 94.1 fL (80.0-98.0); Mean Platelet Volume 10.5 fL (9.4-12.3); Platelet Count 149 X10*3/uL (160-400); Red Blood Count 2.88 X10*6/uL (4.20-5.50); Red Cell Distribution Width 13.6 % (11.0-16.0); White Blood Count 8.5 X10*3/uL (4.8-10.8)
[2021-07-31 08:00] VITALS: BP 135/65; PULSE 68; RESP 16; TEMP 36.6; O2SAT 97
[2021-07-31] MEDS: Lipase/Prot/Amylase 24/76/120K 1 CAP CAPSULE.DR PO ×2 (08:06→12:19)
[2021-07-31 08:08] LABS: Anion Gap 13 (12-20); Blood Urea Nitrogen 40 mg/dL (9-16); Calcium 8.7 mg/dL (8.4-10.2); Carbon Dioxide 22 mmol/L (22-29); Chloride 114 mmol/L (96-108); Creatinine Clr Calc Pharmacy 16.2; Estimated Glomerular Filt Rate 15; Glucose Random 147 mg/dL (60-115); Potassium 4.3 mmol/L (3.3-5.1); Sodium 145 mmol/L (135-145)
--- NOTE | 2021-07-31 11:01 | PM.PNNEP ---
Subjective Subjective Date of Service: 07/31/21 Interval history: seen and examined no complaints Physical Exam Vital Signs: Vital Signs: Last Vital Signs Temp 97.8 F 07/31/21 08:00 Pulse 68 07/31/21 08:00 Resp 16 07/31/21 08:00 BP 135/65 07/31/21 08:00 Pulse Ox 97 07/31/21 08:00 BMI result Body Mass Index 29.7 Const: General: alert and awake HEENT: Head: Yes normocephalic and Yes atraumatic Neck: Neck: Yes supple Resp: Auscultation: diminished lung sounds Cardio: Heart sounds: S1 normal heart sound present and S2 normal heart sound present GI: Palpation (GI): Soft to palpation and Tenderness to palpation present (GI) Extrem: General: Yes normal to inspection Objective Data Labs CBC & Chem 7: 07/31/21 06:48 07/31/21 06:48 Labs: Laboratory Results - last 24 hr 07/30/21 07/30/21 07/30/21 10:51 16:01 20:38 WBC RBC Hgb Hct MCV MCH MCHC RDW Plt Count MPV Absolute Nucleated RBC Nucleated RBC % (auto) Sodium Potassium Chloride Carbon Dioxide Anion Gap BUN Creatinine Estim Creat Clear Calc Estimated GFR POC Glucose 176 H 161 H 153 H Random Glucose Calcium 07/31/21 07/31/21 07/31/21 06:48 06:48 07:20 WBC 8.5 RBC 2.88 L Hgb 8.6 L Hct 27.1 L MCV 94.1 MCH 29.9 MCHC 31.7 RDW 13.6 Plt Count 149 L MPV 10.5 Absolute Nucleated RBC 0.000 Nucleated RBC % (auto) 0.0 Sodium 145 Potassium 4.3 Chloride 114 H Carbon Dioxide 22 Anion Gap 13 BUN 40 H Creatinine 3.16 H Estim Creat Clear Calc 16.2 Estimated GFR 15 POC Glucose 127 H Random Glucose 147 H Calcium 8.7 D Microbiology Microbiology Results: Microbiology 07/28/21 09:47 Blood - Venous Blood Culture - Preliminary No growth after 48 hours. 07/28/21 09:47 Blood - Venous Blood Culture - Preliminary No growth after 48 hours. Procedures Date of Service Date of Service: 07/31/21 Assessment & Plan Assessment and plan (1) ANGELY (acute kidney injury): Status: Acute Plan stable kidney function ANGELY due to acute tubular injury CT scan negative for obstruction Scr 1.1 mg/dl last year REC blood transfusion for Hb < 7 follow kidney function and electrolytes will arrange for outpatient renal follow up after dc Time Spent With Patient Time: Total time spent is greater than 50% in coordination of care (as documented) at patient's floor/unit and/or counseling patient: Progress Note: Quality Stroke Does the patient have a stroke diagnosis?: No
[2021-07-31 11:08] VITALS: BP 143/65; PULSE 71; RESP 16; TEMP 37.2; O2SAT 96
[2021-07-31 11:39] LABS: Glucose, Whole Blood 185 mg/dL (60-115)
[2021-07-31] MEDS: Insulin Lispro 100 UNIT/ML 3 ML VIAL SUBCUT (12:19)
--- NOTE | 2021-07-31 13:18 | MHC.CM.PN ---
Patient has been medically cleared for dc to home today, self care.
--- NOTE | 2021-07-31 16:10 | P.DS_ITS ---
DS: Providers Provider Date of Service: 07/31/21 Date of admission: 07/28/21 12:47 Primary care physician: Myra Persaud DO Consults: 07/28/21 09:33 Consult to Nephrology Routine Consulting Provider: Ronald Santiago Reason for consultation: hyperkalemia Has provider been notified: Yes 07/29/21 09:03 Consult to Gastroenterology [place]ine [place]ing [place] [facility] [place] [facility] Reason for consultation: ? Enteritis, ?PUD Has provider been notified: No DS: Diagnosis Discharge Diagnosis (1) ANGELY (acute kidney injury): Status: Acute DS: Summary Hospital Course Hospital Course: History of presenting illness Chief Complaint: Midsternal pain 65-year-old lady with underlying history of diabetes mellitus, CAD, CHF, obesity, sleep apnea, asthma, alcohol dependence, chronic pancreatitis, recent admission for electrolyte abnormalities admitted on 07/29/2021 with complaints of midsternal pain.? On ER evaluation patient has had cardiac etiologies and pancreatitis ruled out.? She was noted to have significant metabolic acidosis with acute renal failure and hyperkalemia.? Nephrology was consulted.? Patient was started on bicarbonate drip and admitted to intensive care unit.? Her to CT abdomen demonstrated some thickening of bowel wall, but no other acute findings. hospital course: 65yo F with CKD3, DM2, HTN, anemia of chronic disease, chronic pancreatitis presented with midsternal chest pain, admitted to ICU 07/28/21 with severe metabolic acidosis, ANGELY, and hyperkalemia likely due to acute enteritis, decreased by mouth intake, patient treated in the ICU with bicarbonate drip, IV fluids, hyperkalemia and acidosis resolved patient was subsequently transferred down to intermediate care unit with persistent ANGELY patient treated with IV fluids, creatinine remains elevated but stable metformin and lisinopril was discontinued patient was followed closely by Nephrology , likely ANGELY due to acute tubular injury, since no further improvement with IV fluids nephrology recommend to discharge patient home with close outpatient monitoring, will check labs early next week, will recommend to avoid NSAIDs , metformin and lisinopril. in regard to enteritis patient treated with Levaquin and Flagyl, denies nausea vomiting abdominal pain or diarrhea will finish total 5 day course of antibiotics. In regard to acute on chronic anemia no acute GI blood loss noted, patient received blood transfusion hematocrit improved and remained stable at baseline, stool guaiac is positive, recent anemia workup showed normal B12 folate and iron studies recommend continued outpatient follow-up with Dr. Buck, patient seen by Dr. Breen ,recommend outpatient GI follow-up Enteritis all symptoms resolved patient treated with Levaquin and metronidazole will be discharge home on oral antibiotics to finish a total 5 day course of antibiotics Chronic pancreatitis continue Creon Traumatic rhabdomyolysis CPK improved with IV fluids Chronic HFpEF no acute exacerbation noted DM2? stable blood sugar, continue insulin sliding scale low-dose Lantus, metformin discontinued due to ANGELY Time Spent with Patient Time attestation: Total time spent providing and/or coordinating discharge services: Discharge coordination time: Greater than 30 minutes Quality: Safe Use of Opioids Does Pt have an Active Cancer Diagnosis on the Problem List?: No Quality: Stroke Does the patient have a stroke diagnosis?: No Physical Exam Vital Signs: Vital Signs: Last Vital Signs Temp 98.9 F 07/31/21 11:08 Pulse 71 07/31/21 11:08 Resp 16 07/31/21 11:08 BP 143/65 H 07/31/21 11:08 Pulse Ox 96 07/31/21 11:08 BMI result Body Mass Index 29.7 Const: Other: Gen: awake alert, in no acute distre ss Neck: supple, n o JVD Lungs: clear to auscultation b ilaterally, no whe radha, no rhonchi He art: regular rate and rhythm, no mur murs Abd: soft,? n ontender, bowel so unds audible Ext: no edema Skin: war m/well-perfused Ne uro: alert and yaima ented x3, no focal findings Psych: a ppropriate affect DS: Data Data Completed and Pending Completed studies during hospitalization [Text1]: Procedures Transfusion of Nonautologous Red Blood Cells into Peripheral Vein, Percutaneous Approach (07/01/21) Labs on day of discharge: Laboratory Results - last 24 hr 07/30/21 07/30/21 07/31/21 16:01 20:38 06:48 WBC 8.5 RBC 2.88 L Hgb 8.6 L Hct 27.1 L MCV 94.1 MCH 29.9 MCHC 31.7 RDW 13.6 Plt Count 149 L MPV 10.5 Absolute Nucleated RBC 0.000 Nucleated RBC % (auto) 0.0 Sodium Potassium Chloride Carbon Dioxide Anion Gap BUN Creatinine Estim Creat Clear Calc Estimated GFR POC Glucose 161 H 153 H Random Glucose Calcium 07/31/21 07/31/21 07/31/21 06:48 07:20 11:10 WBC RBC Hgb Hct MCV MCH MCHC RDW Plt Count MPV Absolute Nucleated RBC Nucleated RBC % (auto) Sodium 145 Potassium 4.3 Chloride 114 H Carbon Dioxide 22 Anion Gap 13 BUN 40 H Creatinine 3.16 H Estim Creat Clear Calc 16.2 Estimated GFR 15 POC Glucose 127 H 185 H Random Glucose 147 H Calcium 8.7 D Preliminary micro results at discharge 07/28/21 09:47 Blood Culture - Preliminary Blood - Venous No growth after 48 hours. 07/28/21 09:47 Blood Culture - Preliminary Blood - Venous No growth after 48 hours. Discharge Plan Discharge Patient Disposition: Home, Self-Care Discharge Diagnosis: acute on chronic kidney disease stage 3 hyperkalemia acidosis acute on chronic anemia enteritis rhabdomyolysis Referrals: Myra Persaud DO [Primary Care Provider] - 1 Week Discharge Medications: New levofloxacin 500 mg tablet 500 mg PO DAILY Qty: 1 0RF Rx Instructions: take levaquin 500 mg on 08/01/21 Continued albuterol sulfate 90 mcg/actuation Hfa Aerosol Inhaler 2 puff INHALATION Q4-6H PRN (Reason: Shortness Of Breath Or Wheezing) 0RF carvedilol 3.125 mg Tablet 3.125 mg PO BID 0RF folic acid 1 mg Tablet 1 mg PO DAILY 0RF ergocalciferol (vitamin D2) [Vitamin D2] 1,250 mcg (50,000 unit) Capsule 1,250 mcg PO MO 0RF calcium carbonate [Calcium Antacid] 200 mg calcium (500 mg) tablet,chewable 1 tab PO BID PRN (Reason: Heartburn) 0RF lidocaine 5 % Adhesive Patch,Medicated 1 patch TOPICAL DAILY 0RF Rx Instructions: leave on most painful area for up to 12 hrs Creon 24,000-76,000 -120,000 unit capsule,delayed release(DR/EC) 1 cap PO TIDWM 0RF Rx Instructions: administer with meals and/or snacks ketotifen fumarate 0.025 % (0.035 %) drops 1 drp ophthalmic (eye) BID 0RF acetaminophen 650 mg tablet extended release 1 tab PO Q8H PRN (Reason: fever) 0RF baclofen 10 mg tablet 1 tab PO TID PRN (Reason: muscle spasm) 0RF pantoprazole 40 mg tablet,delayed release (DR/EC) 1 tab PO BID 0RF gabapentin 100 mg capsule 1 cap PO BEDTIME 0RF loratadine 10 mg Tablet 10 mg PO DAILY 0RF Flovent HFA 110 mcg/actuation HFA aerosol inhaler 2 puff inhalation BID 0RF insulin lispro [Humalog KwikPen Insulin] 100 unit/mL insulin pen 0 unit subcut BID@0730,1130 0RF Rx Instructions: SLIDING SCALE Changed Lantus U-100 Insulin 100 unit/mL solution 10 unit subcut DAILY Qty: 0 0RF Discontinued metformin 500 mg Tablet 1,000 mg PO BID 0RF lisinopril 20 mg Tablet 20 mg PO BEDTIME 0RF No Action metformin 500 mg tablet 2 tab PO DAILY 0RF atorvastatin [Lipitor] 80 mg Tablet 80 mg PO DAILY 0RF pantoprazole [Protonix] 40 mg Tablet,Delayed Release (Dr/Ec) 40 mg PO BID 0RF diclofenac sodium 1 % gel 2 g topical BID PRN (Reason: Pain) 0RF dextrose 1 gram Tablet,Chewable 4 g PO Q15M PRN (Reason: Hypoglycemia) 0RF Rx Instructions: until symptoms of low blood sugar are controlled Discharge Orders: Discharge Order (Routine); Ordered 07/31/21 Ordered By: Omid Haines Diet: diabetic diet Activity on Discharge: As tolerated Stand Alone Forms: Patient Portal Discharge page Other Ambulatory Orders: Basic Metabolic Panel (Routine) Timeframe: [id number] Facility: [facility] - Location: Laboratory Ordered By: Omid Haines Complete Blood Count no Diff (Routine) Timeframe: [id number] Facility: [facility] - Location: Laboratory Ordered By: Omid Haines Care Plan Goals: acute on chronic anemia, hematocrit improved with blood transfusion follow with Dr. Breen, return to check with blood in stools, blood in vomitus, black colored stools lightheadedness or dizziness. stop metformin due to acute Health Concerns: diabetes mellitus/anemia/hypertension/ hyperlipidemia follow-up with primary care physician, check lipid profile to assess need for continued Lipitor, monitor blood pressure and adjust medication follow up with Gastroenterology for close monitoring of anemia. Plan of Treatment: outpatient follow-up with Nephrology, they will call for an appointment, if do not receive a phone call please call them early next week, outpatient follow-up with PCP in 7-10 days Assessment: as per discharge summary Discharge Date/Time: 07/31/21 17:21
== END 2021-07-31 17:21 | disposition home or self-care (01) | DRG 351 ==
LOC: HO.ED 10:06 → HO.EDOVER 13:01 → HO.ICU 13:17 → HO.IMC 07-29 16:34
PROVIDERS: Family Medicine; Internal Medicine Gastroenterology; Registered Nurse Community Health; Admitting Provider Internal Medicine Pulmonary Disease; Emergency Provider Emergency Medicine; PCP Family Medicine; Visit Provider Hospitalist
DX: M62.82 Rhabdomyolysis (principal); N17.0 Acute kidney failure with tubular necrosis; I13.0 Hypertensive heart and chronic kidney disease with heart failure and stage 1 through stage 4 chronic kidney disease, or unspecified chronic kidney disease; E87.2 Acidosis; D63.1 Anemia in chronic kidney disease; I42.8 Other cardiomyopathies; I50.32 Chronic diastolic (congestive) heart failure; K52.9 Noninfective gastroenteritis and colitis, unspecified; K86.0 Alcohol-induced chronic pancreatitis; E11.22 Type 2 diabetes mellitus with diabetic chronic kidney disease; I25.10 Atherosclerotic heart disease of native coronary artery without angina pectoris; K21.9 Gastro-esophageal reflux disease without esophagitis; N18.30 Chronic kidney disease, stage 3 unspecified; E66.9 Obesity, unspecified; F10.20 Alcohol dependence, uncomplicated; R19.5 Other fecal abnormalities; Z68.29 Body mass index [BMI] 29.0-29.9, adult; E87.5 Hyperkalemia; Z20.822 Contact with and (suspected) exposure to COVID-19; Z87.442 Personal history of urinary calculi; Z88.8 Allergy status to other drugs, medicaments and biological substances; Z79.4 Long term (current) use of insulin; Z79.84 Long term (current) use of oral hypoglycemic drugs; Z79.899 Other long term (current) drug therapy
CPT/HCPCS: 36415; 71045; 74176; 76775; 80048; 80053; 80076; 81001; 81003; 82009; 82272; 82550; 82803; 82947; 83605; 83690; 83735; 83880; 84100; 84132; 84484; 85025; 85027; 85610; 86850; 86900; 86901; 86923; 87040; 87502; 87635; 93005; 93306; 94640; 96361; 96374; 96375; 99285; 99291; J0610; J1956; J3010; J3475; P9016; P9047

== ENCOUNTER → 2021-08-01 14:32 | Outpatient (BNV) | payer MEDICARE, MEDICAID, SELFPAY | PROVIDERS: PCP Family Medicine; Visit Provider Internal Medicine Medical Oncology | DX: N18.4 Chronic kidney disease, stage 4 (severe) (principal); D63.1 Anemia in chronic kidney disease | CPT/HCPCS: 99203; 99213; 99214 ==

== ENCOUNTER 2021-08-06 14:00 | Outpatient (REF) | payer MEDICAID, SELFPAY | END 2021-08-06 14:01 | disposition home or self-care (01) | LOC: HO.MDS 14:00 | PROVIDERS: PCP Family Medicine; Visit Provider Internal Medicine Medical Oncology | DX: D50.9 Iron deficiency anemia, unspecified (principal) | CPT/HCPCS: 96365; J2916 ==

== ENCOUNTER 2021-08-07 07:34 | Outpatient (REF) | payer MEDICAID, SELFPAY | END 2021-08-07 07:35 | disposition home or self-care (01) | LOC: HO.MDS 07:34 | PROVIDERS: Visit Provider Internal Medicine Medical Oncology | DX: D50.9 Iron deficiency anemia, unspecified (principal) | CPT/HCPCS: 96365; 96366; J1200; J1750; Q0163 ==

== ENCOUNTER → 2021-08-15 08:31 | Outpatient (BNVA) | payer MEDICAID, SELFPAY | PROVIDERS: PCP Family Medicine; Referring Provider Family Medicine; Visit Provider Internal Medicine Gastroenterology | DX: K52.9 Noninfective gastroenteritis and colitis, unspecified (principal); K57.90 Diverticulosis of intestine, part unspecified, without perforation or abscess without bleeding; R93.3 Abnormal findings on diagnostic imaging of other parts of digestive tract; R74.8 Abnormal levels of other serum enzymes; R97.0 Elevated carcinoembryonic antigen [CEA]; D64.9 Anemia, unspecified | CPT/HCPCS: 99212 ==

== ENCOUNTER 2021-09-07 09:36 | Outpatient (REF) | payer MEDICAID, SELFPAY ==
--- NOTE | ~2021-09-07 | MM_ITS ---
EXAMINATION: MM SCREENING DIGITAL BREAST TOMOSYNTHESIS, BILATERAL CLINICAL INFORMATION: Screening. Asymptomatic. The lifetime risk of breast cancer based on the Tyrer-Cuzick Model is 5%. COMPARISON: Mammography: 09/01/2020, 04/02/2018, 02/21/2017 TECHNIQUE: Digital breast tomosynthesis is performed in both the craniocaudal and mediolateral oblique views along with computer-aided detection (CAD). Synthesized 2D images are generated from the tomosynthesis. FINDINGS: There are scattered areas of fibroglandular density (ACR BI-RADS breast composition Category b). There are no significant masses, abnormal calcifications, or other abnormalities. Parenchymal pattern is similar to prior studies. No developing density or architectural abnormality. There are incidental bilateral vascular calcifications. Low axillary tail nodes are stable. MM/MM tomosynthesis screening BI IMPRESSION: No mammographic evidence of malignancy. ASSESSMENT: BI-RADS 2: Benign RECOMMENDATION: Routine annual mammography screening. This patient's information was entered into a reminder system with a target due date for their next mammogram.
== END 2021-09-07 09:37 | disposition home or self-care (01) ==
LOC: HO.MAMMO 09:36
PROVIDERS: PCP Family Medicine; Visit Provider Family Medicine
DX: Z12.31 Encounter for screening mammogram for malignant neoplasm of breast (principal)
CPT/HCPCS: 77063; 77067

== ENCOUNTER 2021-09-09 15:52 | Outpatient (REF) | payer MEDICAID, SELFPAY ==
[2021-09-09 16:27] LABS: MANUAL DIFF FLAG NO
[2021-09-09 17:45] LABS: Appearance Urine CLEAR; Color Urine STRAW; Glucose Urine UA 250 MG/DL (NEG); Leukocyte Esterase Urine NEG (NEG); Nitrite Urine NEG (NEG); PH 5.5 (5.0-8.0); Specific Gravity - Urine 1.015 (1.005-1.025); Urine Blood 3+ (NEG); Urine Ketones NEG (NEG); Urine Protein NEG (NEG-TRACE)
[2021-09-09 17:46] LABS: Basophils Percent Auto 0.5 % (0-2); Eosinophils Absolute Auto 0.3 X10*3/uL (0.0-0.4); Eosinophils Percent Auto 3.3 % (0-4); Hematocrit 29.1 % (37.0-47.0); Imm Gran Abs Auto 0.03 X10*3/uL (0.00-0.03); Imm Gran Pct Auto 0.4 % (0.0-0.4); Lymphocytes Absolute Auto 3.2 X10*3/uL (1.2-4.9); Lymphocytes Percent Auto 37.3 % (20-40); Mean Corpuscular HGB Conc 30.9 g/dl (31.0-35.0); Mean Corpuscular Hemoglobin 30.2 pg (27.0-33.0); Mean Corpuscular Volume 97.7 fL (80.0-98.0); Mean Platelet Volume 10.6 fL (9.4-12.3); Monocytes Absolute Auto 0.7 X10*3/uL (0.1-1.2); Monocytes Percent Auto 8.5 % (2-11); Neutrophils Absolute Auto 4.2 x10*3/uL (2.0-8.3); Platelet Count 171 X10*3/uL (160-400); Red Blood Count 2.98 X10*6/uL (4.20-5.50); Red Cell Distribution Width 13.6 % (11.0-16.0); White Blood Count 8.4 X10*3/uL (4.8-10.8)
[2021-09-09 17:52] LABS: Granular Casts Urine 0-2 /LPF; Squamous Epithelial Cell Urine 1+ /LPF
[2021-09-09 17:54] LABS: RBC Urine 0-2 /HPF (0); WBC Urine 0-2 /HPF (0-4)
[2021-09-09 18:12] LABS: Albumin Level 4.1 g/dL (3.5-5.0); Anion Gap 13 (12-20); Blood Urea Nitrogen 55 mg/dL (9-16); Calcium 9.4 mg/dL (8.4-10.2); Carbon Dioxide 17 mmol/L (22-29); Chloride 113 mmol/L (96-108); Estimated Glomerular Filt Rate 24; Iron 81 mcg/dL (30-160); Magnesium 2.3 mg/dL (1.6-2.6); Percent Iron Saturation 39 % (15-50); Phosphorus 5.1 mg/dL (2.7-4.5); Potassium 4.7 mmol/L (3.3-5.1); Sodium 138 mmol/L (135-145); Total Iron Binding Capacity 208 mcg/dL (228-428); Unsaturated Iron Binding 127 ug/dL
[2021-09-09 18:13] LABS: Creatinine Urine 29.66 mg/dL; Microalbum/Creatinine Ratio Ur 33.7 ug/mg cr; Protein/Creatinine Ratio, Ur 0.27 (<0.2); Total Protein Urine Random 8 mg/dL (<12)
[2021-09-09 18:14] LABS: Alanine Aminotransferase 77 U/L (0-31); Alkaline Phosphatase 139 U/L (39-117); Anion Gap 14 (12-20); Aspartate Amino Transferase 96 U/L (5-31); Bilirubin Total 0.5 mg/dL (0.0-1.0); Blood Urea Nitrogen 56 mg/dL (9-16); Calcium 9.1 mg/dL (8.4-10.2); Carbon Dioxide 15 mmol/L (22-29); Chloride 113 mmol/L (96-108); Estimated Glomerular Filt Rate 24; Glucose Random 229 mg/dL (60-115); Potassium 4.7 mmol/L (3.3-5.1); Sodium 137 mmol/L (135-145); Total Protein 6.9 g/dL (6.5-8.0)
[2021-09-09 19:39] LABS: Ferritin 2362 ng/mL (10-250)
[2021-09-10 08:44] LABS: HBS Num1 3.65 mIU/mL (0-7.99); HBc Num1 1.68 S/CO (0.00-0.79); HBsAGNum1 0.21 S/CO (0.00-0.99); Hepatitis B Surface Antigen Negative (Negative); ~HepC Num1 0.13 S/CO (0.00-0.79); ~Hepatitis B Surface Antibody NONREACTIVE (Nonreactive); ~Hepatitis C Antibody Nonreactive (Nonreactive)
[2021-09-10 09:52] LABS: HBc Num2 1.67 S/CO; HBc Num3 1.77 S/CO; Hepatitis B Core Antibody Reactive (Nonreactive)
[2021-09-10 14:16] LABS: Calcium (PTHI) 9.5 mg/dL (8.6-10.4); PTHI 88 pg/mL (16-77)
[2021-09-11 06:02] LABS: Complement C3 125 mg/dL (83-193)
[2021-09-11 22:03] LABS: Anti Nuclear Antibody Screen POSITIVE (NEGATIVE)
[2021-09-12 02:56] LABS: Hepatitis B Core Antibody IgM REACTIVE (NON-REACTIVE)
[2021-09-13 15:33] LABS: Prot Elec - Albumin 3.9 g/dL (3.8-4.8); Prot Elec - Alpha1 0.4 g/dL (0.2-0.3); Prot Elec - Alpha2 0.8 g/dL (0.5-0.9); Prot Elec - Beta 1 0.4 g/dL (0.4-0.6); Prot Elec - Beta 2 0.4 g/dL (0.2-0.5); Prot Elec - Gamma 1.1 g/dL (0.8-1.7)
[2021-09-13 16:06] LABS: Kappa, Serum 274 mg/dL (176-443); Kappa/Lambda Ratio, Serum 1.71 (1.29-2.55); Lambda, Serum 160 mg/dL (91-240)
== END 2021-09-09 15:53 | disposition home or self-care (01) ==
LOC: HO.LAB 15:52
PROVIDERS: Absent Provider Internal Medicine Medical Oncology; PCP Family Medicine; Visit Provider Internal Medicine Nephrology
DX: D64.9 Anemia, unspecified (principal); N18.4 Chronic kidney disease, stage 4 (severe); D63.1 Anemia in chronic kidney disease; E11.22 Type 2 diabetes mellitus with diabetic chronic kidney disease; N25.0 Renal osteodystrophy
CPT/HCPCS: 36415; 80051; 80053; 81001; 82040; 82043; 82310; 82565; 82728; 83540; 83735; 83883; 83970; 84100; 84156; 84165; 84520; 85025; 86038; 86039; 86160; 86704; 86705; 86706; 86803; 87086; 87340

== ENCOUNTER 2021-09-30 11:25 | Emergency (ER) | payer MEDICARE, MEDICAID, SELFPAY ==
[2021-09-30 13:01] VITALS: BP 160/77; PULSE 73; RESP 16; TEMP 36.7; O2SAT 99; BMI 28.8
--- NOTE | 2021-09-30 13:09 | ECG_ITS ---
Test Reason : CHEST PAIN Blood Pressure : / mmHG Vent. Rate : 071 BPM Atrial Rate : 071 BPM P-R Int : 170 ms QRS Dur : 080 ms QT Int : 392 ms P-R-T Axes : 047 -19 034 degrees QTc Int : 425 ms Normal sinus rhythm Normal ECG When compared with ECG of 29-JUL-2021 05:12, Nonspecific T wave abnormality no longer evident in Anterolateral leads Referred By: Generic ED Physician Electronically Signed By:Chris Myers
[2021-09-30 13:28] LABS: Hematocrit 30.8 % (37.0-47.0); Hemoglobin 9.1 g/dl (12.0-16.0); Mean Corpuscular HGB Conc 29.5 g/dl (31.0-35.0); Mean Corpuscular Hemoglobin 29.5 pg (27.0-33.0); Mean Platelet Volume 9.8 fL (9.4-12.3); NRBC Pct Auto 0.4 /100WBC (0.0-0.2); Platelet Count 219 X10*3/uL (160-400); Red Blood Count 3.08 X10*6/uL (4.20-5.50); Red Cell Distribution Width 14.4 % (11.0-16.0); White Blood Count 9.3 X10*3/uL (4.8-10.8)
[2021-09-30 14:04] LABS: B Type Natriuretic Peptide 105 pg/mL (<100); Troponin-I High Sensitivity < 3.5 ng/L (<3.5-17.0)
[2021-09-30 14:10] LABS: Blood Urea Nitrogen 35 mg/dL (9-16); Calcium 9.1 mg/dL (8.4-10.2); Creatinine Clr Calc Pharmacy 22.4; Estimated Glomerular Filt Rate 22; Glucose Random 133 mg/dL (60-115)
[2021-09-30 14:22] LABS: Anion Gap 15 (12-20); Carbon Dioxide 21 mmol/L (22-29); Chloride 115 mmol/L (96-108); Potassium 5.8 mmol/L (3.3-5.1); Sodium 145 mmol/L (135-145)
--- NOTE | 2021-09-30 15:15 | ED_ITS ---
HPI - Chest Pain General Chief Complaint: Chest Pain Stated Complaint: possible high potassium levels Time Seen by Provider: 09/30/21 15:15 Source: patient Mode of arrival: ambulatory Limitations: no limitations History of Present Illness HPI narrative: 65-year-old female who presents emergency department for evaluation of headache, chest pain, weakness and fatigue. Patient states that her symptoms started yesterday. She states that she developed a headache that came on gradually. She points to the frontal area of her head and describes the pain as a pressure sensation that makes her eyes water. She states that initially the pain was moderate to severe but today the pain is only 3/10 and is significantly better. She states that she was having palpitations yesterday. She describes these as a throbbing sensation in her left chest which is intermittent, these sensations come on at rest and with exertion. She states that she was feeling very tired and fatigued. She denied fever or chills. She states she did developed rhinorrhea and a nonproductive cough. She denied shortness of breath or dyspnea on exertion. She states she has had similar symptoms in the past whenever her potassium is high. She states that when her potassium was high her doctor prescribes a medication that she takes for several days to help lower her potassium but she does not know the name this medication. MD complaint: chest pain Onset (ago): day(s) (2) Timing of current episode: episodic Prior episodes: Yes Onset: during rest and during exertion Pain location: left chest Pain radiation: none Severity: mild Pain scale (0-10): 2 Quality: other (Throbbing) Relieving factors: nothing Exacerbating factors: nothing Context: recent illness (Rhinorrhea nonproductive cough) Treatment prior to arrival: none Related Data Home Medications Medication Instructions Recorded Confirmed albuterol sulfate 90 mcg/actuation 2 puff inhalation Q4-6H PRN 03/14/20 09/13/21 aerosol inhaler Shortness Of Breath Or Wheezing carvedilol 3.125 mg tablet 3.125 mg PO BID 03/14/20 09/13/21 ergocalciferol (vitamin D2) 1,250 1,250 mcg PO MO 03/14/20 09/13/21 mcg (50,000 unit) capsule (Vitamin D2) folic acid 1 mg tablet 1 mg PO DAILY 03/14/20 09/13/21 calcium carbonate 200 mg calcium 1 tab PO BID PRN Heartburn 07/28/20 09/13/21 (500 mg) chewable tablet (Calcium Antacid) acetaminophen 650 mg 1 tab PO Q8H PRN fever 07/01/21 09/13/21 tablet,extended release baclofen 10 mg tablet 1 tab PO TID PRN muscle spasm 07/01/21 09/13/21 fluticasone propionate 110 2 puff inhalation BID 07/01/21 09/13/21 mcg/actuation HFA aerosol inhaler (Flovent HFA) gabapentin 100 mg capsule 1 cap PO BEDTIME 07/01/21 09/13/21 insulin lispro 100 unit/mL 0 unit subcut BID@0730,1130 07/01/21 09/13/21 subcutaneous pen (Humalog KwikPen (U-100) Insulin) ketotifen fumarate 0.025 % (0.035 1 drp ophthalmic (eye) BID 07/01/21 09/13/21 %) eye drops loratadine 10 mg tablet 10 mg PO DAILY 07/01/21 09/13/21 lidocaine 5 % topical patch 1 patch topical DAILY 07/28/21 09/13/21 [id number] 1 cap PO TIDWM 07/28/21 09/13/21 24,000-76,000-120,000 unit capsule,delayed rel (Creon) atorvastatin 80 mg tablet (Lipitor) 80 mg PO DAILY 08/01/21 09/13/21 dextrose 1 gram chewable tablet 4 g PO Q15M PRN Hypoglycemia 08/01/21 09/13/21 diclofenac sodium 1 % topical gel 2 g topical BID PRN Pain 08/01/21 09/13/21 pantoprazole 40 mg tablet,delayed 40 mg PO BID 08/01/21 09/13/21 release (Protonix) aspirin 81 mg chewable tablet 81 mg PO DAILY 08/15/21 09/13/21 potassium chloride 8 mEq 8.3 meq PO 3XW 09/13/21 09/13/21 tablet,extended release Previous Rx's Medication Instructions Recorded insulin glargine 100 unit/mL 10 unit (0.1 mL) subcut DAILY #0 mL 07/31/21 subcutaneous solution (Lantus U-100 Insulin) sodium polystyrene sulfonate 30 g PO DAILY 3 days #120 grams 09/30/21 Allergies Allergy/AdvReac Type Severity Reaction Status Date / Time simvastatin [SIMVASTATIN] AdvReac Unknown Unknown Verified 09/13/21 14:51 Review of Systems Review of Systems: Yes all other systems are reviewed and are negative [facility] Past Medical History [facility] Narrative: Social history: She denies tobacco, alcohol and drug use. Medical History Anemia Anemia Ascending aorta dilatation Asthma CAD (coronary artery disease) CHF (congestive heart failure) Chronic pancreatitis DMII (diabetes mellitus, type 2) Elevated cholesterol Elevated LFTs Fatty liver GERD (gastroesophageal reflux disease) History of alcohol dependence History of colon polyps HTN (hypertension) Hx of acute pancreatitis Hx of acute renal failure Hx of diabetes with ketoacidosis Hx of non-ST elevation myocardial infarction (NSTEMI) IDDM (insulin dependent diabetes mellitus) Non-ischemic cardiomyopathy Sleep apnea Surgical History History of cardiac cath History of esophagogastroduodenoscopy (EGD) History of partial hysterectomy Hx of cholecystectomy Hx of colonoscopy Hx of lithotripsy Family History Family History Father History of heart attack Mother No problems noted. Social History Social History Household Members: None Housing: Apartment Are you a primary career technical education teacher to a significant other at home: No Do you presently have visiting nurse or other home services: No Alcohol intake: never Patient Tobacco Use Status: Never used Tobacco Advance Directives: Yes Advance Directives on File: Yes Advance Directives Date on File: 07/02/21 service: No Current occupational status: disabled Physical Exam Vital Signs: Vital Signs: Last Vital Signs Temp 98.2 F 09/30/21 15:19 Pulse 69 09/30/21 15:19 Resp 17 09/30/21 15:19 BP 136/61 09/30/21 15:19 Pulse Ox 95 09/30/21 15:19 O2 Del Method 09/30/21 15:19 BMI result Body Mass Index 28.8 Const: General: cooperative and no acute distress Orientation/consciousne ss: oriented to person and oriented to place Limitations: no limitations HEENT: Head: Yes normal to inspection, Yes normocephalic and Yes atraumatic Ears: external ears normal General nose exam: Normal external nose present Face and sinus: Yes normal facial exam Mouth: Normal oral and palatal mucos a present Throat: Yes posterior oropharynx normal Eyes: General: appearance normal, both eyes and all related structures Pupils: Equal, round and reactive pupils present Neck: Neck: Yes normal visual inspection, Yes no lymphadenopathy, Yes trachea midline and Yes supple Chest: Chest palpation & inspection: normal inspection of the chest and normal palpation of entire chest wall Resp: Effort & Inspection: normal respiratory effort and able to speak in complete sentences Auscultation: clear to auscultation bilaterally Cardio: Rate: regular rate Rhythm: regular rhythm Heart sounds: S1 normal heart sound present, S2 normal heart sound present and no murmurs GI: Inspection: Yes normal to inspection Palpation (GI): Soft to palpation, nontender and no guarding Auscultation: normal bowel sounds : General: Yes no CVA tenderness Back/Spine/Pelvis: Back: no CVA tenderness Skin: General skin exam: no rashes or lesions noted Neuro: General: oriented to person and oriented to place Cranial nerves: Yes CN's II-XII intact bilaterally and Yes Equal, round and reactive pupils present Cognition (Neuro): normal cognition Motor exam (neuro): 5/5 motor strength present throughout Extrem: General: Yes normal to inspection Psych: Appearance: grossly normal Speech and movement: Normal speech and movement present Affect: normal affect Attitude: cooperative Thought process: Normal thought process present Thought content: Normal thought content present Course Course Course Narrative: 65-year-old female with history of chronic renal disease who presents emergency department for evaluation of headache, palpitations, weakness and fatigue x2 days. Patient states she has had similar symptoms in the past whenever she has a high potassium. Vital signs revealed an elevated blood pressure of 160/77 otherwise were unremarkable. Patient's physical examination was unremarkable. Patient's 12 EKG revealed a sinus rhythm with no significant T-wave abnormaliti es. Laboratory evaluation revealed anemia with an H&H of 9.1 and 30.8. Patient's potassium was elevated at 5.8. BUN creatinine were elevated at 35 and 2.26 but this is consistent with her baseline chronic kidney disease. Patient's high sensitivity troponin I was below detectable limits. The patient was ordered to get Tylenol 975 mg orally for her headache. Patient's high potassium was treated with Kayexalate 30 g orally. The patient will be discharged home with a prescription for Kayexalate 30 g once a day for the next 3 days. She was instructed follow-up with PCP for repeat basic metabolic panel as an outpatient. MDM - Chest Pain Medical Records Data Attestation: I reviewed the patient's medical records. Lab Data Attestation: I reviewed the patient's lab results. Result diagrams: 09/30/21 13:21 09/30/21 13:21 Labs: Lab Results 09/30/21 09/30/21 09/30/21 Range/Units 13:21 13:21 13:21 WBC 9.3 (4.8-10.8) X10*3/uL RBC 3.08 L (4.20-5.50) X10*6/uL Hgb 9.1 L (12.0-16.0) g/dl Hct 30.8 L (37.0-47.0) % MCV 100.0 H (80.0-98.0) fL MCH 29.5 (27.0-33.0) pg MCHC 29.5 L (31.0-35.0) g/dl RDW 14.4 (11.0-16.0) % Plt Count 219 (160-400) X10*3/uL MPV 9.8 (9.4-12.3) fL Absolute Nucleated RBC 0.040 H (0.0-0.012) X10*3/uL Nucleated RBC % (auto) 0.4 H (0.0-0.2) /100WBC Sodium 145 (135-145) mmol/L Potassium 5.8 H (3.3-5.1) mmol/L Chloride 115 H (96-108) mmol/L Carbon Dioxide 21 L (22-29) mmol/L Anion Gap 15 (12-20) BUN 35 H (9-16) mg/dL Creatinine 2.26 H (0.5-1.4) mg/dL Estim Creat Clear Calc 22.4 Estimated GFR 22 Random Glucose 133 H (60-115) mg/dL Calcium 9.1 (8.4-10.2) mg/dL Troponin I High Sens < 3.5 D (<3.5-17.0) ng/L B-Natriuretic Peptide 105 H (<100) pg/mL ECG Data ECG #1: Attestation: I personally reviewed and interpreted this ECG as follows: Interpretation: 1303: Normal sinus rhythm rate of 71, normal MT interval, QRS duration QTC interval, no ST segment elevation, no ST segment depression, no peaked T-waves. This is a normal EKG. Discharge Plan Discharge Clinical Impression: Headache, Chest pain, Acute hyperkalemia Patient Disposition: Home, Self-Care Instructions: Hyperkalemia (ED) Additional Instructions: Your blood work did reveal an elevated potassium of 5.8. The normal range for potassium is 3.3-5.1. When your potassium is high you feel weak and have no energy. Your treated in the emergency department with a medication called Kayexalate, slower sure potassium. I want you to take Kayexalate 30 g once a day for the next 3 days. Take your next dose tomorrow afternoon. Patient lower your potassium. Take Tylenol (acetaminophen) 500 mg pills, 2 pills every 4 to 6 hours as needed for your chest pain or headache pain. Follow-up with your doctor in 2 days. Please return to the emergency department if your symptoms get worse or if you develop any symptoms that are concerning to you. Prescriptions: New sodium polystyrene sulfonate Powder 30 g PO DAILY 3 Days Qty: 120 0RF No Action albuterol sulfate 90 mcg/actuation Hfa Aerosol Inhaler 2 puff INHALATION Q4-6H PRN (Reason: Shortness Of Breath Or Wheezing) carvedilol 3.125 mg Tablet 3.125 mg PO BID folic acid 1 mg Tablet 1 mg PO DAILY ergocalciferol (vitamin D2) [Vitamin D2] 1,250 mcg (50,000 unit) Capsule 1,250 mcg PO MO calcium carbonate [Calcium Antacid] 200 mg calcium (500 mg) tablet,chewable 1 tab PO BID PRN (Reason: Heartburn) lidocaine 5 % Adhesive Patch,Medicated 1 patch TOPICAL DAILY Rx Instructions: leave on most painful area for up to 12 hrs Creon 24,000-76,000 -120,000 unit capsule,delayed release(DR/EC) 1 cap PO TIDWM Rx Instructions: administer with meals and/or snacks insulin glargine [Lantus U-100 Insulin] 100 unit/mL solution 10 unit subcut DAILY Qty: 0 0RF ketotifen fumarate 0.025 % (0.035 %) drops 1 drp ophthalmic (eye) BID acetaminophen 650 mg tablet extended release 1 tab PO Q8H PRN (Reason: fever) baclofen 10 mg tablet 1 tab PO TID PRN (Reason: muscle spasm) gabapentin 100 mg capsule 1 cap PO BEDTIME loratadine 10 mg Tablet 10 mg PO DAILY fluticasone propionate [Flovent HFA] 110 mcg/actuation HFA aerosol inhaler 2 puff inhalation BID insulin lispro [Humalog KwikPen Insulin] 100 unit/mL insulin pen 0 unit subcut BID@0730,1130 Rx Instructions: SLIDING SCALE atorvastatin [Lipitor] 80 mg Tablet 80 mg PO DAILY pantoprazole [Protonix] 40 mg Tablet,Delayed Release (Dr/Ec) 40 mg PO BID diclofenac sodium 1 % gel 2 g topical BID PRN (Reason: Pain) dextrose 1 gram Tablet,Chewable 4 g PO Q15M PRN (Reason: Hypoglycemia) Rx Instructions: until symptoms of low blood sugar are controlled potassium chloride 8 mEq Tablet Extended Release 8.3 meq PO 3XW aspirin 81 mg tablet,chewable 81 mg PO DAILY
[2021-09-30 15:19] VITALS: BP 136/61; PULSE 69; RESP 17; TEMP 36.8; O2SAT 95
[2021-09-30] MEDS: Sodium Polystyrene Sulfon/Sorb 15 GM/60 ML ORAL.SUSP 30 GM PO (16:18)
[2021-09-30] MEDS: Acetaminophen 325 MG TABLET 975 MG PO (16:18)
== END 2021-09-30 16:56 | disposition home or self-care (01) ==
PROVIDERS: Emergency Provider Emergency Medicine Emergency Medical Services; PCP Family Medicine
DX: R51.9 Headache, unspecified (principal); R07.9 Chest pain, unspecified; E87.5 Hyperkalemia; I11.0 Hypertensive heart disease with heart failure; I50.9 Heart failure, unspecified; E11.9 Type 2 diabetes mellitus without complications; E78.5 Hyperlipidemia, unspecified; Z79.4 Long term (current) use of insulin; Z79.02 Long term (current) use of antithrombotics/antiplatelets
CPT/HCPCS: 36415; 80048; 83880; 84484; 85027; 93005; 99283

== ENCOUNTER 2021-10-24 15:00 | Outpatient (REF) | payer MEDICARE, MEDICAID, SELFPAY ==
[2021-10-24 16:15] LABS: Appearance Urine CLEAR; Color Urine YELLOW; Glucose Urine UA NEG (NEG); Leukocyte Esterase Urine NEG (NEG); Nitrite Urine NEG (NEG); PH 6.5 (5.0-8.0); Urine Blood NEG (NEG); Urine Ketones NEG (NEG); Urine Protein NEG (NEG-TRACE)
[2021-10-24 16:17] LABS: Hematocrit 35.3 % (37.0-47.0); Hemoglobin 10.4 g/dl (12.0-16.0); Mean Corpuscular HGB Conc 29.5 g/dl (31.0-35.0); Mean Corpuscular Volume 98.3 fL (80.0-98.0); Mean Platelet Volume 10.2 fL (9.4-12.3); Platelet Count 188 X10*3/uL (160-400); Red Blood Count 3.59 X10*6/uL (4.20-5.50); Red Cell Distribution Width 14.8 % (11.0-16.0); White Blood Count 7.3 X10*3/uL (4.8-10.8)
[2021-10-24 16:33] LABS: Creatinine Urine 55.81 mg/dL; Microalbum/Creatinine Ratio Ur 17.9 ug/mg cr; Total Protein Urine Random < 7 mg/dL (<12)
[2021-10-24 16:38] LABS: Anion Gap 13 (12-20); Blood Urea Nitrogen 36 mg/dL (9-16); Calcium 8.9 mg/dL (8.4-10.2); Carbon Dioxide 22 mmol/L (22-29); Chloride 111 mmol/L (96-108); Estimated Glomerular Filt Rate 20; Phosphorus 4.4 mg/dL (2.7-4.5); Potassium 5.4 mmol/L (3.3-5.1); Sodium 141 mmol/L (135-145)
[2021-10-24 16:58] LABS: Vitamin D 25-OH Total 19.5 ng/mL (>30)
[2021-10-27 12:12] LABS: Calcium (PTHI) 9.2 mg/dL (8.6-10.4); PTHI 183 pg/mL (16-77)
[2021-10-30 15:27] LABS: Kappa, Serum 298 mg/dL (176-443); Kappa/Lambda Ratio, Serum 1.81 (1.29-2.55); Lambda, Serum 165 mg/dL (91-240)
== END 2021-10-24 15:01 | disposition home or self-care (01) ==
LOC: HO.LAB 15:00
PROVIDERS: PCP Family Medicine; Visit Provider Internal Medicine Nephrology
DX: N18.32 Chronic kidney disease, stage 3b (principal); N25.0 Renal osteodystrophy; E11.29 Type 2 diabetes mellitus with other diabetic kidney complication; E11.22 Type 2 diabetes mellitus with diabetic chronic kidney disease; D63.1 Anemia in chronic kidney disease
CPT/HCPCS: 36415; 80051; 81003; 82040; 82043; 82306; 82310; 82565; 83735; 83883; 83970; 84100; 84156; 84520; 85027; 87086

== ENCOUNTER → 2021-11-25 13:44 | Outpatient (REF) | payer MEDICARE, MEDICAID, SELFPAY ==
--- NOTE | 2021-11-25 13:47 | CA_ITS ---
Transthoracic Echocardiogram Patient (Last, First, Middle): Amy Walker N Gender: Female Date of : 1955 Age: 66 Procedure Date: 11/25/2021 Procedure Type: Transthoracic Echocardiogram Location: OP Height: 154.94 cm Weight: 71.22 kg BSA: 1.70 m2 Heart Rate: 79 bpm BP: 168 / 73 mmHg Costumed Character: SB Referring MD: Myra Persaud DO [employer] Operator: Davion Hammond MD Symptoms: R60.0 LOCALIZED EDEMA Study Quality: Adequate ECG Rhythm: Sinus Conclusions: - 1. Normal LV systolic function with mild LVH with impaired relaxation filling pattern 2. Normal cardiac valvular Doppler 3. Normal right atrial pressures 4. No pericardial effusion Findings Left Ventricle Normal left ventricular size and systolic function. There is mildly increased left ventricular wall thickness. The visually estimated ejection fraction is between 55-60%. Spectral Doppler is indicative of an impaired relaxation filling pattern. E/E prime ratio is between 8 and 15 consistent with indeterminate filling pressures. Right Ventricle Normal right ventricular cavity size and systolic function. Atria The left atrium is mildly dilated. 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 Interatrial shunt cannot be excluded. The right atrium is normal in size. Aortic Valve Normal aortic valve structure and function. There is no aortic valve stenosis. There is no aortic valve regurgitation. Mitral Valve Normal mitral valve structure and function. There is trace mitral valve regurgitation. There is no mitral valve stenosis. Pulmonic Valve The pulmonic valve is likely normal. Tricuspid Valve Likely normal tricuspid valve structure and function. Tricuspid regurgitation envelope is inadequate for calculation of right ventricular systolic pressure. Normal right atrial pressure. Great Vessels All visible segments of the aorta are normal in size. The pulmonary artery was not well visualized. Venous The inferior vena cava is normal in size and collapses greater than 50% with inspiration. Pericardium/Pleural There is no evidence of pericardial effusion. Measurements 2D Linear Measurements IVSd: 1.25 0.6-0.9/0.6-1.0 cm LVIDd: 4.56 3.9-5.3/4.2-5.9 cm LVIDd Index: 2.68 2.4-3.2/2.2-3.1 cm/m2 LVIDs: 3.02 2.0-3.6 cm LVPWd: 1.19 0.7-1.1 cm LV Mass: 258.87 67-162/88-224 g LV Mass Index: 152.28 43-95/49-115 g/m2 2D Systolic Function EF 4C: 55.20 >55% EF 2C: 62.50 >55% EF BiP: 56.80 >55% Mitral Valve MV Pk E: 0.55 MV PK A: 0.78 MV Decel Time: 185.00 E/A: 0.70 E'Lateral: 5.22 E'Medial: 3.70 E/E' Med: 14.70 E/E' Lat: 10.40 PHT: 54.00 MVA PHT: 4.07 [address] [place]: 2.95 Diastolic Function MV Pk E: 0.55 MV Pk A: 0.78 E/A: 0.70 E'Medial: 3.70 E/E' Med: 14.70 E' Laterial: 5.22 E/E' Lat: 10.40 Right Ventricle TAPSE (mm): 17.00 TVS' Vaibhav: 7.00 Tricuspid Valve RA Press: 3.00 Updated in Other Vendor System with Status of Final Davion Hammond MD electronically signed on 11/25/2021 3:47:24 PM with status of Final
== END ==
LOC: HO.CARD 13:44
PROVIDERS: PCP Family Medicine; Visit Provider Family Medicine
DX: R60.0 Localized edema (principal)
CPT/HCPCS: 93308

== ENCOUNTER → 2022-01-07 12:50 | Outpatient (BNVA) | payer MEDICARE, MEDICAID, SELFPAY | PROVIDERS: PCP Family Medicine; Visit Provider Internal Medicine Gastroenterology | DX: K57.90 Diverticulosis of intestine, part unspecified, without perforation or abscess without bleeding (principal); K52.9 Noninfective gastroenteritis and colitis, unspecified; R93.3 Abnormal findings on diagnostic imaging of other parts of digestive tract; R74.8 Abnormal levels of other serum enzymes; K59.09 Other constipation; D64.9 Anemia, unspecified; K86.1 Other chronic pancreatitis | CPT/HCPCS: 99212 ==

== ENCOUNTER 2022-01-23 11:54 | Outpatient (REF) | payer MEDICARE, MEDICAID, SELFPAY ==
--- NOTE | 2022-01-23 10:00 | EMG_ITS ---
Bilateral median and ulnar motor and sensory studies were performed. Bilateral radial and sensory studies were performed, and paraspinal muscles were tested with a needle. IMPRESSION: 1. [id number] bilateral median neuropathy across carpal tunnel. 2. Mild bilateral ulnar neuropathy across cubital tunnel. MD MANI Salazar/MAVIS / [id number]
== END 2022-01-23 11:55 | disposition home or self-care (01) ==
LOC: HO.NEURO 11:54
PROVIDERS: PCP Family Medicine; Visit Provider Family Medicine
DX: R20.2 Paresthesia of skin (principal)
CPT/HCPCS: 95886; 95911

== ENCOUNTER 2022-01-27 15:50 | Outpatient (REF) | payer MEDICARE, MEDICAID, SELFPAY ==
[2022-01-27 16:13] LABS: MANUAL DIFF FLAG NO
[2022-01-27 16:40] LABS: Basophils Percent Auto 0.4 % (0-2); Eosinophils Absolute Auto 0.3 X10*3/uL (0.0-0.4); Eosinophils Percent Auto 3.6 % (0-4); Hematocrit 32.7 % (37.0-47.0); Hemoglobin 10.1 g/dl (12.0-16.0); Imm Gran Abs Auto 0.02 X10*3/uL (0.00-0.03); Imm Gran Pct Auto 0.2 % (0.0-0.4); Lymphocytes Absolute Auto 3.6 X10*3/uL (1.2-4.9); Lymphocytes Percent Auto 42.1 % (20-40); Mean Corpuscular HGB Conc 30.9 g/dl (31.0-35.0); Mean Corpuscular Hemoglobin 27.9 pg (27.0-33.0); Mean Corpuscular Volume 90.3 fL (80.0-98.0); Mean Platelet Volume 10.1 fL (9.4-12.3); Monocytes Absolute Auto 0.7 X10*3/uL (0.1-1.2); Monocytes Percent Auto 8.4 % (2-11); Neutrophils Absolute Auto 3.8 x10*3/uL (2.0-8.3); Neutrophils Percent Auto 45.3 % (45-73); Platelet Count 180 X10*3/uL (160-400); Red Blood Count 3.62 X10*6/uL (4.20-5.50); Red Cell Distribution Width 14.4 % (11.0-16.0); White Blood Count 8.5 X10*3/uL (4.8-10.8)
[2022-01-27 16:45] LABS: Appearance Urine Turbid; Color Urine Yellow; Glucose Urine UA Negative (Negative); Leukocyte Esterase Urine Negative (Negative); Nitrite Urine Negative (Negative); Urine Blood Negative (Negative); Urine Ketones Negative (Negative); Urine Protein Negative (Neg-Trace)
[2022-01-27 17:08] LABS: Albumin Level 4.3 g/dL (3.5-5.0); Anion Gap 14 (12-20); Blood Urea Nitrogen 46 mg/dL (9-16); Calcium 9.7 mg/dL (8.4-10.2); Carbon Dioxide 25 mmol/L (22-29); Chloride 108 mmol/L (96-108); Estimated Glomerular Filt Rate 22; Magnesium 2.1 mg/dL (1.6-2.6); Phosphorus 4.1 mg/dL (2.7-4.5); Potassium 5.7 mmol/L (3.3-5.1); Sodium 141 mmol/L (135-145)
[2022-01-27 17:10] LABS: Creatinine Urine 41.29 mg/dL; Microalbum/Creatinine Ratio Ur 19.3 ug/mg cr; Total Protein Urine Random < 7 mg/dL (<12)
[2022-01-27 17:28] LABS: Vitamin D 25-OH Total 20.9 ng/mL (>30)
[2022-01-28 11:42] LABS: Calcium (PTHI) 9.7 mg/dL (8.6-10.4); PTHI 199 pg/mL (16-77)
== END 2022-01-27 15:51 | disposition home or self-care (01) ==
LOC: HO.LAB 15:50
PROVIDERS: PCP Family Medicine; Visit Provider Internal Medicine Nephrology
DX: E11.29 Type 2 diabetes mellitus with other diabetic kidney complication (principal); E11.22 Type 2 diabetes mellitus with diabetic chronic kidney disease; R80.9 Proteinuria, unspecified; N18.4 Chronic kidney disease, stage 4 (severe); D63.1 Anemia in chronic kidney disease; N25.0 Renal osteodystrophy
CPT/HCPCS: 36415; 80051; 81003; 82040; 82043; 82306; 82310; 82565; 83735; 83970; 84100; 84156; 84520; 85025; 87086

== ENCOUNTER 2022-04-25 14:12 | Observation (INO) | payer MEDICARE, MEDICAID, SELFPAY ==
--- NOTE | ~2022-04-25 | XR_ITS ---
EXAMINATION: XR CHEST CLINICAL INFORMATION: Dizziness COMPARISON: 07/28/2021 TECHNIQUE: 2 views of the chest were obtained. FINDINGS: The lungs are well expanded. Streaky opacities at the left base. No pleural effusion or pneumothorax. No edema. The cardiomediastinal silhouette is unchanged, with a calcified aorta. XR/XR chest 2V IMPRESSION: Streaky left basilar opacities favor atelectasis. No consolidation.
--- NOTE | ~2022-04-25 | CT_ITS ---
EXAMINATION: NONCONTRAST HEAD CT NONCONTRAST CERVICAL SPINE CT INDICATION INFORMATION: Fall. Dizziness. COMPARISON: None TECHNIQUE: Separate noncontrast CT examinations of the head and cervical spine were performed. Coronal and sagittal images were created for each examination at the technologist workstation. This CT examination was performed using dose optimization techniques as appropriate, variously including the following: *Automated exposure control *Adjustment of mA and/or kV according to patient size (this includes techniques or standardized protocols for targeted exams where dose is matched to indication/reason for exam; i.e. extremities or head) *Use of iterative reconstruction technique DLP: 950 mGy-cm FINDINGS: Head: There is no evidence of acute intracranial hemorrhage or territorial infarction. No abnormal mass effect or midline shift is seen. Manriquez to white matter differentiation is well preserved. No extra-axial fluid collections are identified. No hydrocephalus. No significant volume loss. Patchy periventricular and deep white matter hypoattenuation is consistent with mild small vessel ischemic changes. No acute osseous or soft tissue abnormality. Chronic appearing depression of the right lamina papyracea. Mild mucoperiosteal thickening of the maxillary sinuses. The mastoid air cells and visualized portions of the paranasal sinuses are otherwise well aerated. Cervical spine: There is anatomic alignment of the vertebral bodies and posterior elements. The atlantoaxial and atlantooccipital articulations are intact. Vertebral body heights and intervertebral disc spaces are maintained. Small endplate osteophytes with facet arthropathy throughout. No evidence of acute fracture. No prevertebral soft tissue swelling. Visualized portions of the lung apices are unremarkable. The thyroid gland is unremarkable. CT/CT cervical spine wo IV con IMPRESSION: 1. No acute intracranial finding. 2. No acute fracture or malalignment of the cervical spine. Mild degenerative changes.
[2022-04-25 14:33] VITALS: BP 173/80; PULSE 80; RESP 18; TEMP 36.8; O2SAT 97; BMI 34.2
--- NOTE | 2022-04-25 14:35 | ED.GENADULT ---
HPI - General Adult General Chief complaint: Dizziness <VICTORIA Parmar - Last Filed: 04/25/22 14:37> Stated complaint: Dizziness, Fall from bed, Fatigue <VICTORIA Parmar - Last Filed: 04/25/22 14:37> Time Seen by Provider: 04/25/22 17:08 <VICTORIA Parmar - Last Filed: 04/25/22 14:37> Source: patient <Hermelindo Pérez MD - Last Filed: 04/25/22 21:41> Mode of arrival: ambulatory <Hermelindo Pérez MD - Last Filed: 04/25/22 21:41> Limitations: no limitations <Hermelindo Pérez MD - Last Filed: 04/25/22 21:41> History of Present Illness HPI narrative: This is 66 years old female with history of type 2 diabetes presented to the emergency department with chief complaint of dizziness dizziness is been going on since last night this morning states that she fell. She also complaining of chest pain she described the chest pain as a burning feeling in the chest. She was able to ambulate to the emergency room. Denies any other complaints such as vomiting nausea fever <Hermelindo Pérez MD - Last Filed: 04/25/22 21:41> Onset (ago): day(s) (1) <Hermelindo Pérez MD - Last Filed: 04/25/22 21:41> Location: head and chest <Hermelindo Pérez MD - Last Filed: 04/25/22 21:41> Radiation: non-radiation <Hermelindo Pérez MD - Last Filed: 04/25/22 21:41> Severity: moderate <Hermelindo Pérez MD - Last Filed: 04/25/22 21:41> Quality: burning <Hermelindo Pérez MD - Last Filed: 04/25/22 21:41> Relieving factors: none <Hermelindo Pérez MD - Last Filed: 04/25/22 21:41> Treatments prior to arrival: none <Hermelindo Pérez MD - Last Filed: 04/25/22 21:41> Related Data Home medications: Home Medications Medication Instructions Recorded Confirmed albuterol sulfate 90 mcg/actuation 2 puff inhalation Q4-6H PRN 03/14/20 04/18/22 aerosol inhaler Shortness Of Breath Or Wheezing carvedilol 3.125 mg tablet 3.125 mg PO BID 03/14/20 04/18/22 ergocalciferol (vitamin D2) 1,250 1,250 mcg PO MO 03/14/20 04/18/22 mcg (50,000 unit) capsule (Vitamin D2) folic acid 1 mg tablet 1 mg PO DAILY 03/14/20 04/18/22 calcium carbonate 200 mg calcium 1 tab PO BID PRN Heartburn 07/28/20 04/18/22 (500 mg) chewable tablet (Calcium Antacid) acetaminophen 650 mg 1 tab PO Q8H PRN fever 07/01/21 04/18/22 tablet,extended release baclofen 10 mg tablet 1 tab PO TID PRN muscle spasm 07/01/21 04/18/22 fluticasone propionate 110 2 puff inhalation BID 07/01/21 04/18/22 mcg/actuation HFA aerosol inhaler (Flovent HFA) gabapentin 100 mg capsule 1 cap PO BEDTIME 07/01/21 04/18/22 insulin lispro 100 unit/mL 100 unit subcut BID@0730,1130 07/01/21 04/18/22 subcutaneous pen (Humalog KwikPen (U-100) Insulin) ketotifen fumarate 0.025 % (0.035 1 drp ophthalmic (eye) BID 07/01/21 04/18/22 %) eye drops loratadine 10 mg tablet 10 mg PO DAILY 07/01/21 04/18/22 lidocaine 5 % topical patch 1 patch topical DAILY 07/28/21 04/18/22 atorvastatin 80 mg tablet (Lipitor) 80 mg PO DAILY 08/01/21 04/18/22 dextrose 1 gram chewable tablet 4 g PO Q15M PRN Hypoglycemia 08/01/21 04/18/22 diclofenac sodium 1 % topical gel 2 g topical BID PRN Pain 08/01/21 04/18/22 pantoprazole 40 mg tablet,delayed 40 mg PO BID 08/01/21 04/18/22 release (Protonix) aspirin 81 mg chewable tablet 81 mg PO DAILY 08/15/21 04/18/22 potassium chloride 8 mEq 8.3 meq PO 3XW 09/13/21 04/18/22 tablet,extended release Previous Rx's Medication Instructions Recorded insulin glargine 100 unit/mL 10 unit (0.1 mL) subcut DAILY #0 mL 07/31/21 subcutaneous solution (Lantus U-100 Insulin) sodium polystyrene sulfonate 30 g PO DAILY 3 days #120 grams 09/30/21 bisacodyl 5 mg tablet,delayed 10 mg PO ONCE colon prep 3 days #6 01/07/22 release (Dulcolax (bisacodyl)) tabs polyethylene glycol 3350 17 17 g PO DAILY 60 days #1,020 grams 01/07/22 gram/dose oral powder (Miralax) polyethylene glycol 3350 17 17 g PO DAILY colon prep 1 day 01/07/22 gram/dose oral powder (Miralax) #238 grams wjiuyk-bijpnatr-sthnaou 1 cap PO TIDWM 30 days #90 caps 02/27/22 24,000-76,000-120,000 unit capsule,delayed rel (Creon) <VICTORIA Parmar - Last Filed: 04/25/22 14:37> Allergies/adverse reactions: Allergies Allergy/AdvReac Type Severity Reaction Status Date / Time simvastatin [SIMVASTATIN] AdvReac Unknown Unknown Verified 04/18/22 15:41 <VICTORIA Parmar - Last Filed: 04/25/22 14:37> Review of Systems Constitutional: Constitutional: Reports no additional constitutional complaints <Hermelindo Pérez MD - Last Filed: 04/25/22 21:41> ENT: Reports system reviewed and no additional complaints, except as documented <Hermelindo Pérez MD - Last Filed: 04/25/22 21:41> Cardiovascular: Cardiovascular: Reports chest pain <Hermelindo Pérez MD - Last Filed: 04/25/22 21:41> Respiratory: Respiratory: Reports no additional respiratory complaints <Hermelindo Pérez MD - Last Filed: 04/25/22 21:41> Gastrointestinal: Gastrointestinal: Reports no additional gastrointestinal complaints <Hermelindo Pérez MD - Last Filed: 04/25/22 21:41> Neurologic: Reports other (dizzness) <Hermelindo Pérez MD - Last Filed: 04/25/22 21:41> PMFSH Past Medical History Medical History: Medical History Anemia Anemia Ascending aorta dilatation Asthma CAD (coronary artery disease) CHF (congestive heart failure) Chronic pancreatitis DMII (diabetes mellitus, type 2) Elevated cholesterol Elevated LFTs Fatty liver GERD (gastroesophageal reflux disease) History of alcohol dependence History of colon polyps HTN (hypertension) Hx of acute pancreatitis Hx of acute renal failure Hx of diabetes with ketoacidosis Hx of non-ST elevation myocardial infarction (NSTEMI) IDDM (insulin dependent diabetes mellitus) Non-ischemic cardiomyopathy Sleep apnea <VICTORIA Parmar - Last Filed: 04/25/22 14:37> Surgical History: Surgical History History of cardiac cath History of esophagogastroduodenoscopy (EGD) History of partial hysterectomy Hx of cholecystectomy Hx of colonoscopy Hx of lithotripsy <VICTORIA Parmar - Last Filed: 04/25/22 14:37> Family History Family History: Family History Father History of heart attack Mother No problems noted. Other No family history of cancer <VICTORIA Parmar - Last Filed: 04/25/22 14:37> Social History Social History: Social History Household Members: None Housing: Apartment Are you a primary career manager to a significant other at home: No Do you presently have visiting nurse or other home services: No Alcohol intake: never Patient Tobacco Use Status: Never used Tobacco Advance Directives: Yes Advance Directives on File: Yes Advance Directives Date on File: 07/02/21 service: No Current occupational status: disabled <VICTORIA Parmar - Last Filed: 04/25/22 14:37> Physical Exam ED Vital Signs: Vital Signs - 24 hr 04/25/22 14:33 04/25/22 17:30 04/25/22 18:53 Temperature 98.3 F 98.2 F Pulse Rate 80 62 74 Respiratory Rate 18 16 14 Blood Pressure 173/80 H 147/52 H Pulse Oximetry 97 100 100 Oxygen Delivery Method Room Air Room Air Room Air 04/25/22 20:00 Temperature 97.9 F Pulse Rate 87 Respiratory Rate 16 Blood Pressure 149/81 H Pulse Oximetry 96 Oxygen Delivery Method Room Air BMI result Body Mass Index 34.2 <VICTORIA Parmar - Last Filed: 04/25/22 14:37> Vital Signs - 24 hr 04/25/22 14:33 04/25/22 17:30 04/25/22 18:53 Temperature 98.3 F 98.2 F Pulse Rate 80 62 74 Respiratory Rate 18 16 14 Blood Pressure 173/80 H 147/52 H Pulse Oximetry 97 100 100 Oxygen Delivery Method Room Air Room Air Room Air 04/25/22 20:00 Temperature 97.9 F Pulse Rate 87 Respiratory Rate 16 Blood Pressure 149/81 H Pulse Oximetry 96 Oxygen Delivery Method Room Air BMI result Body Mass Index 34.2 <Hermelindo Pérez MD - Last Filed: 04/25/22 21:41> Const General: cooperative <Hermelindo Pérez MD - Last Filed: 04/25/22 21:41> Nutritional Appearance: well nourished <Hermelindo Pérez MD - Last Filed: 04/25/22 21:41> Limitations: no limitations <Hermelindo Pérez MD - Last Filed: 04/25/22 21:41> HENMT Head: Yes normal to inspection <Hermelindo Pérez MD - Last Filed: 04/25/22 21:41> General nose exam: Normal external nose present <Hermelindo Pérez MD - Last Filed: 04/25/22 21:41> Face and sinus: Yes normal facial exam <Hermelindo Pérez MD - Last Filed: 04/25/22 21:41> Mouth: Normal oral and palatal mucosa present <Hermelindo Pérez MD - Last Filed: 04/25/22 21:41> Teeth and gingiva: dentition normal <Hermelindo Pérez MD - Last Filed: 04/25/22 21:41> Throat: Yes posterior oropharynx normal <Hermelindo Pérez MD - Last Filed: 04/25/22 21:41> Neck Neck: Yes full ROM and Yes no lymphadenopathy <Hermelindo Pérez MD - Last Filed: 04/25/22 21:41> Thyroid: Thyroid normal <Hermelindo Pérez MD - Last Filed: 04/25/22 21:41> Resp Effort & Inspection: normal respiratory effort and able to speak in complete sentences <Hermelindo Pérez MD - Last Filed: 04/25/22 21:41> Cardio Jugular venous distension: no JVD <Hermelindo Pérez MD - Last Filed: 04/25/22 21:41> Rate: regular rate <Hermelindo Pérez MD - Last Filed: 04/25/22 21:41> Rhythm: regular rhythm <Hermelindo Pérez MD - Last Filed: 04/25/22 21:41> GI Inspection: Yes normal to inspection <Hermelindo Pérez MD - Last Filed: 04/25/22 21:41> Auscultation: normal bowel sounds <Hermelindo Pérez MD - Last Filed: 04/25/22 21:41> Skin General skin exam: no rashes or lesions noted, elasticity normal and turgor normal <Hermelindo Pérez MD - Last Filed: 04/25/22 21:41> Lesions: no lesions <Hermelindo Pérez MD - Last Filed: 04/25/22 21:41> Rashes: no rashes <Hermelindo Pérez MD - Last Filed: 04/25/22 21:41> Trauma: no lacerations or abrasions <Hermelindo Pérez MD - Last Filed: 04/25/22 21:41> Nails: normal <Hermelindo Pérez MD - Last Filed: 04/25/22 21:41> Course Course Course Narrative: RME performed by Nely Boston PA-C. Patient is a 66 year old female presenting to the emergency department with dizziness and the sensation of chest burning. Patient states that she also fell out of bed last night but did not strike her head when she fell. Lab work and head + C-Spine CTs ordered. Patient placed back in waiting room pending room availability. <VICTORIA Parmar Last Filed: 04/25/22 14:37> Reevaluation(s) Reevaluation #1: Patient was given IV fluids come pain medication she states complaining nausea vomiting I think at this time is very reasonable to admit the patient for observation she is diabetic also, she has a little bit of metabolic acidosis with low bicarb 18 <MD Vanda Byrd Last Filed: 04/25/22 21:41> Time: 21:41 <Hermelindo Pérez MD - Last Filed: 04/25/22 21:41> Medications Administered Discontinued Medications Generic Name Dose Route Start Last Admin Trade Name Freq PRN Reason Stop Dose Admin Acetaminophen 975 mg 04/25/22 17:15 04/25/22 19:04 Acetaminophen 325 Mg Tablet PO 04/25/22 17:16 Not Given ONCE ONE Sodium Chloride 1,000 mls @ 999 mls/hr 04/25/22 17:15 04/25/22 20:06 Ns IVCONT 04/25/22 18:15 Infused .Q1H1M DERIC Infusion Lorazepam 0.5 mg 04/25/22 18:35 04/25/22 18:59 Lorazepam 2 Mg/Ml Vial IVPUSH 04/25/22 18:36 0.5 mg ONCE ONE Administration Metoclopramide HCl 10 mg 04/25/22 18:40 04/25/22 18:59 Metoclopramide Hcl 10 Mg/2 Ml Vial IVPUSH 04/25/22 18:41 10 mg ONCE ONE Administration Morphine Sulfate 5 mg 04/25/22 18:35 04/25/22 18:56 Morphine Sulfate 10 Mg/Ml Cartridge IVPUSH 04/25/22 18:36 5 mg ONCE ONE Administration Protocol <VICTORIA Parmar - Last Filed: 04/25/22 14:37> Medications Administered Discontinued Medications Generic Name Dose Route Start Last Admin Trade Name Lakhwinder PRN Reason Stop Dose Admin Acetaminophen 975 mg 04/25/22 17:15 04/25/22 19:04 Acetaminophen 325 Mg Tablet PO 04/25/22 17:16 Not Given ONCE ONE Sodium Chloride 1,000 mls @ 999 mls/hr 04/25/22 17:15 04/25/22 20:06 Ns IVCONT 04/25/22 18:15 Infused .Q1H1M DERIC Infusion Lorazepam 0.5 mg 04/25/22 18:35 04/25/22 18:59 Lorazepam 2 Mg/Ml Vial IVPUSH 04/25/22 18:36 0.5 mg ONCE ONE Administration Metoclopramide HCl 10 mg 04/25/22 18:40 04/25/22 18:59 Metoclopramide Hcl 10 Mg/2 Ml Vial IVPUSH 04/25/22 18:41 10 mg ONCE ONE Administration Morphine Sulfate 5 mg 04/25/22 18:35 04/25/22 18:56 Morphine Sulfate 10 Mg/Ml Cartridge IVPUSH 04/25/22 18:36 5 mg ONCE ONE Administration Protocol <Hermelindo Pérez MD - Last Filed: 04/25/22 21:41> Medical Decision Making Medical Decision Making [facility] Narrative: Patient presented with dizziness and chest pain and neuro examination is normal she has no nystagmus on physical examination she is able to ambulate skew test is negative, I do not think the patient need further imaging head ct negative , she does have hyperglycemia little bit of metabolic acidosis it is in reasonable to give 1 L of fluid reassess <Hermelindo Pérez MD - Last Filed: 04/25/22 21:41> Differential Diagnosis Differential Diagnoses: The differential diagnosis associated with the presentation includes <Hermelindo Pérez MD - Last Filed: 04/25/22 21:41> head bleed/vertigo <Hermelindo Pérez MD - Last Filed: 04/25/22 21:41> Admission/Observation Consideration of admission/observation: Escalation of care including admission/observation considered <Hermelindo Pérez MD - Last Filed: 04/25/22 21:41> Consult Healthcare Provider Management of the patient was discussed with: Hospitalist <Hermelindo Pérez MD - Last Filed: 04/25/22 21:41> Lab Data Result Diagrams: 04/25/22 14:55 04/25/22 14:55 <VICTORIA Parmar - Last Filed: 04/25/22 14:37> Labs: Lab Results 04/25/22 04/25/22 04/25/22 Range/Units 14:55 14:55 14:55 WBC 8.0 (4.8-10.8) X10*3/uL RBC 3.85 L (4.20-5.50) X10*6/uL Hgb 10.9 L (12.0-16.0) g/dl Hct 34.2 L (37.0-47.0) % MCV 88.8 (80.0-98.0) fL MCH 28.3 (27.0-33.0) pg MCHC 31.9 (31.0-35.0) g/dl RDW 13.5 (11.0-16.0) % Plt Count 157 L (160-400) X10*3/uL MPV 10.3 (9.4-12.3) fL Immature Gran % (Auto) 0.3 (0.0-0.4) % Neut % (Auto) 55.5 (45-73) % Lymph % (Auto) 34.6 (20-40) % [place] % (Auto) 6.0 (2-11) % Eos % (Auto) 3.3 (0-4) % Baso % (Auto) 0.3 (0-2) % Lymph # (Auto) 2.8 (1.2-4.9) X10*3/uL [place] # (Auto) 0.5 (0.1-1.2) X10*3/uL Eos # (Auto) 0.3 (0.0-0.4) X10*3/uL Baso # (Auto) 0.0 (0.0-0.2) X10*3/uL Abs Immat Gran (auto) 0.02 (0.00-0.03) X10*3/uL Absolute Neuts (auto) 4.5 (2.0-8.3) x10*3/uL Absolute Nucleated RBC 0.000 (0.0-0.012) X10*3/uL Nucleated RBC % (auto) 0.0 (0.0-0.2) /100WBC Sodium 137 (135-145) mmol/L Potassium 4.9 (3.3-5.1) mmol/L Chloride 110 H (96-108) mmol/L Carbon Dioxide 18 L (22-29) mmol/L Anion Gap 14 (12-20) BUN 36 H (9-16) mg/dL Creatinine 2.10 H (0.5-1.4) mg/dL Estim Creat Clear Calc 25.9 Estimated GFR 24 POC Glucose (60-115) mg/dL Random Glucose 434 H* (60-115) mg/dL Calcium 8.9 (8.4-10.2) mg/dL Magnesium 2.0 (1.6-2.6) mg/dL Total Bilirubin 0.4 (0.0-1.0) mg/dL AST 38 H (5-31) U/L ALT 39 H (0-31) U/L Alkaline Phosphatase 204 H (39-117) U/L Troponin I High Sens < 3.5 (<3.5-17.0) ng/L Total Protein 6.6 (6.5-8.0) g/dL Albumin 3.9 (3.5-5.0) g/dL Urine Color Urine Appearance Urine pH (5.0-9.0) Ur Specific [place] (1.005-1.025) Urine Protein (Neg-Trace) mg/dL Urine Glucose (UA) (Negative) mg/dL Urine Ketones (Negative) mg/dL Urine Blood (Negative) Urine Nitrite (Negative) Ur Leukocyte Esterase (Negative) Urine RBC (0-2) /HPF Urine WBC (0-5) /HPF Ur Squamous Epith Cells (0-2) /HPF Urine Bacteria (None Seen) Hyaline Casts (0-2) /LPF Influenza Type A (PCR) (Negative) Influenza Type B (PCR) (Negative) RSV RNA Qual (PCR) (Negative) SARS-CoV-2 RNA (RT-PCR) (Negative) 04/25/22 04/25/22 04/25/22 Range/Units 14:55 17:29 17:57 WBC (4.8-10.8) X10*3/uL RBC (4.20-5.50) X10*6/uL Hgb (12.0-16.0) g/dl Hct (37.0-47.0) % MCV (80.0-98.0) fL MCH (27.0-33.0) pg MCHC (31.0-35.0) g/dl RDW (11.0-16.0) % Plt Count (160-400) X10*3/uL MPV (9.4-12.3) fL Immature Gran % (Auto) (0.0-0.4) % Neut % (Auto) (45-73) % Lymph % (Auto) (20-40) % [place] % (Auto) (2-11) % Eos % (Auto) (0-4) % Baso % (Auto) (0-2) % Lymph # (Auto) (1.2-4.9) X10*3/uL [place] # (Auto) (0.1-1.2) X10*3/uL Eos # (Auto) (0.0-0.4) X10*3/uL Baso # (Auto) (0.0-0.2) X10*3/uL Abs Immat Gran (auto) (0.00-0.03) X10*3/uL Absolute Neuts (auto) (2.0-8.3) x10*3/uL Absolute Nucleated RBC (0.0-0.012) X10*3/uL Nucleated RBC % (auto) (0.0-0.2) /100WBC Sodium (135-145) mmol/L Potassium (3.3-5.1) mmol/L Chloride (96-108) mmol/L Carbon Dioxide (22-29) mmol/L Anion Gap (12-20) BUN (9-16) mg/dL Creatinine (0.5-1.4) mg/dL Estim Creat Clear Calc Estimated GFR POC Glucose 349 H (60-115) mg/dL Random Glucose (60-115) mg/dL Calcium (8.4-10.2) mg/dL Magnesium (1.6-2.6) mg/dL Total Bilirubin (0.0-1.0) mg/dL AST (5-31) U/L ALT (0-31) U/L Alkaline Phosphatase (39-117) U/L Troponin I High Sens 3.7 (<3.5-17.0) ng/L Total Protein (6.5-8.0) g/dL Albumin (3.5-5.0) g/dL Urine Color Urine Appearance Urine pH (5.0-9.0) Ur Specific [place] (1.005-1.025) Urine Protein (Neg-Trace) mg/dL Urine Glucose (UA) (Negative) mg/dL Urine Ketones (Negative) mg/dL Urine Blood (Negative) Urine Nitrite (Negative) Ur Leukocyte Esterase (Negative) Urine RBC (0-2) /HPF Urine WBC (0-5) /HPF Ur Squamous Epith Cells (0-2) /HPF Urine Bacteria (None Seen) Hyaline Casts (0-2) /LPF Influenza Type A (PCR) NEGATIVE (Negative) Influenza Type B (PCR) NEGATIVE (Negative) RSV RNA Qual (PCR) NEGATIVE (Negative) SARS-CoV-2 RNA (RT-PCR) NEGATIVE (Negative) 04/25/22 Range/Units 18:05 WBC (4.8-10.8) X10*3/uL RBC (4.20-5.50) X10*6/uL Hgb (12.0-16.0) g/dl Hct (37.0-47.0) % MCV (80.0-98.0) fL MCH (27.0-33.0) pg MCHC (31.0-35.0) g/dl RDW (11.0-16.0) % Plt Count (160-400) X10*3/uL MPV (9.4-12.3) fL Immature Gran % (Auto) (0.0-0.4) % Neut % (Auto) (45-73) % Lymph % (Auto) (20-40) % [place] % (Auto) (2-11) % Eos % (Auto) (0-4) % Baso % (Auto) (0-2) % Lymph # (Auto) (1.2-4.9) X10*3/uL [place] # (Auto) (0.1-1.2) X10*3/uL Eos # (Auto) (0.0-0.4) X10*3/uL Baso # (Auto) (0.0-0.2) X10*3/uL Abs Immat Gran (auto) (0.00-0.03) X10*3/uL Absolute Neuts (auto) (2.0-8.3) x10*3/uL Absolute Nucleated RBC (0.0-0.012) X10*3/uL Nucleated RBC % (auto) (0.0-0.2) /100WBC Sodium (135-145) mmol/L Potassium (3.3-5.1) mmol/L Chloride (96-108) mmol/L Carbon Dioxide (22-29) mmol/L Anion Gap (12-20) BUN (9-16) mg/dL Creatinine (0.5-1.4) mg/dL Estim Creat Clear Calc Estimated GFR POC Glucose (60-115) mg/dL Random Glucose (60-115) mg/dL Calcium (8.4-10.2) mg/dL Magnesium (1.6-2.6) mg/dL Total Bilirubin (0.0-1.0) mg/dL AST (5-31) U/L ALT (0-31) U/L Alkaline Phosphatase (39-117) U/L Troponin I High Sens (<3.5-17.0) ng/L Total Protein (6.5-8.0) g/dL Albumin (3.5-5.0) g/dL Urine Color Yellow Urine Appearance Clear Urine pH 5.5 (5.0-9.0) Ur Specific [place] 1.015 (1.005-1.025) Urine Protein Negative (Neg-Trace) mg/dL Urine Glucose (UA) >=1000 H (Negative) mg/dL Urine Ketones Negative (Negative) mg/dL Urine Blood Negative (Negative) Urine Nitrite Negative (Negative) Ur Leukocyte Esterase Negative (Negative) Urine RBC 0-2 (0-2) /HPF Urine WBC 0-5 (0-5) /HPF Ur Squamous Epith Cells 0-2 (0-2) /HPF Urine Bacteria None Seen (None Seen) Hyaline Casts 3-5 (0-2) /LPF Influenza Type A (PCR) (Negative) Influenza Type B (PCR) (Negative) RSV RNA Qual (PCR) (Negative) SARS-CoV-2 RNA (RT-PCR) (Negative) <VICTORIA Parmar - Last Filed: 04/25/22 14:37> Lab Results 04/25/22 04/25/22 04/25/22 Range/Units 14:55 14:55 14:55 WBC 8.0 (4.8-10.8) X10*3/uL RBC 3.85 L (4.20-5.50) X10*6/uL Hgb 10.9 L (12.0-16.0) g/dl Hct 34.2 L (37.0-47.0) % MCV 88.8 (80.0-98.0) fL MCH 28.3 (27.0-33.0) pg MCHC 31.9 (31.0-35.0) g/dl RDW 13.5 (11.0-16.0) % Plt Count 157 L (160-400) X10*3/uL MPV 10.3 (9.4-12.3) fL Immature Gran % (Auto) 0.3 (0.0-0.4) % Neut % (Auto) 55.5 (45-73) % Lymph % (Auto) 34.6 (20-40) % [place] % (Auto) 6.0 (2-11) % Eos % (Auto) 3.3 (0-4) % Baso % (Auto) 0.3 (0-2) % Lymph # (Auto) 2.8 (1.2-4.9) X10*3/uL [place] # (Auto) 0.5 (0.1-1.2) X10*3/uL Eos # (Auto) 0.3 (0.0-0.4) X10*3/uL Baso # (Auto) 0.0 (0.0-0.2) X10*3/uL Abs Immat Gran (auto) 0.02 (0.00-0.03) X10*3/uL Absolute Neuts (auto) 4.5 (2.0-8.3) x10*3/uL Absolute Nucleated RBC 0.000 (0.0-0.012) X10*3/uL Nucleated RBC % (auto) 0.0 (0.0-0.2) /100WBC Sodium 137 (135-145) mmol/L Potassium 4.9 (3.3-5.1) mmol/L Chloride 110 H (96-108) mmol/L Carbon Dioxide 18 L (22-29) mmol/L Anion Gap 14 (12-20) BUN 36 H (9-16) mg/dL Creatinine 2.10 H (0.5-1.4) mg/dL Estim Creat Clear Calc 25.9 Estimated GFR 24 POC Glucose (60-115) mg/dL Random Glucose 434 H* (60-115) mg/dL Calcium 8.9 (8.4-10.2) mg/dL Magnesium 2.0 (1.6-2.6) mg/dL Total Bilirubin 0.4 (0.0-1.0) mg/dL AST 38 H (5-31) U/L ALT 39 H (0-31) U/L Alkaline Phosphatase 204 H (39-117) U/L Troponin I High Sens < 3.5 (<3.5-17.0) ng/L Total Protein 6.6 (6.5-8.0) g/dL Albumin 3.9 (3.5-5.0) g/dL Urine Color Urine Appearance Urine pH (5.0-9.0) Ur Specific [place] (1.005-1.025) Urine Protein (Neg-Trace) mg/dL Urine Glucose (UA) (Negative) mg/dL Urine Ketones (Negative) mg/dL Urine Blood (Negative) Urine Nitrite (Negative) Ur Leukocyte Esterase (Negative) Urine RBC (0-2) /HPF Urine WBC (0-5) /HPF Ur Squamous Epith Cells (0-2) /HPF Urine Bacteria (None Seen) Hyaline Casts (0-2) /LPF Influenza Type A (PCR) (Negative) Influenza Type B (PCR) (Negative) RSV RNA Qual (PCR) (Negative) SARS-CoV-2 RNA (RT-PCR) (Negative) 04/25/22 04/25/22 04/25/22 Range/Units 14:55 17:29 17:57 WBC (4.8-10.8) X10*3/uL RBC (4.20-5.50) X10*6/uL Hgb (12.0-16.0) g/dl Hct (37.0-47.0) % MCV (80.0-98.0) fL MCH (27.0-33.0) pg MCHC (31.0-35.0) g/dl RDW (11.0-16.0) % Plt Count (160-400) X10*3/uL MPV (9.4-12.3) fL Immature Gran % (Auto) (0.0-0.4) % Neut % (Auto) (45-73) % Lymph % (Auto) (20-40) % [place] % (Auto) (2-11) % Eos % (Auto) (0-4) % Baso % (Auto) (0-2) % Lymph # (Auto) (1.2-4.9) X10*3/uL [place] # (Auto) (0.1-1.2) X10*3/uL Eos # (Auto) (0.0-0.4) X10*3/uL Baso # (Auto) (0.0-0.2) X10*3/uL Abs Immat Gran (auto) (0.00-0.03) X10*3/uL Absolute Neuts (auto) (2.0-8.3) x10*3/uL Absolute Nucleated RBC (0.0-0.012) X10*3/uL Nucleated RBC % (auto) (0.0-0.2) /100WBC Sodium (135-145) mmol/L Potassium (3.3-5.1) mmol/L Chloride (96-108) mmol/L Carbon Dioxide (22-29) mmol/L Anion Gap (12-20) BUN (9-16) mg/dL Creatinine (0.5-1.4) mg/dL Estim Creat Clear Calc Estimated GFR POC Glucose 349 H (60-115) mg/dL Random Glucose (60-115) mg/dL Calcium (8.4-10.2) mg/dL Magnesium (1.6-2.6) mg/dL Total Bilirubin (0.0-1.0) mg/dL AST (5-31) U/L ALT (0-31) U/L Alkaline Phosphatase (39-117) U/L Troponin I High Sens 3.7 (<3.5-17.0) ng/L Total Protein (6.5-8.0) g/dL Albumin (3.5-5.0) g/dL Urine Color Urine Appearance Urine pH (5.0-9.0) Ur Specific [place] (1.005-1.025) Urine Protein (Neg-Trace) mg/dL Urine Glucose (UA) (Negative) mg/dL Urine Ketones (Negative) mg/dL Urine Blood (Negative) Urine Nitrite (Negative) Ur Leukocyte Esterase (Negative) Urine RBC (0-2) /HPF Urine WBC (0-5) /HPF Ur Squamous Epith Cells (0-2) /HPF Urine Bacteria (None Seen) Hyaline Casts (0-2) /LPF Influenza Type A (PCR) NEGATIVE (Negative) Influenza Type B (PCR) NEGATIVE (Negative) RSV RNA Qual (PCR) NEGATIVE (Negative) SARS-CoV-2 RNA (RT-PCR) NEGATIVE (Negative) 04/25/22 Range/Units 18:05 WBC (4.8-10.8) X10*3/uL RBC (4.20-5.50) X10*6/uL Hgb (12.0-16.0) g/dl Hct (37.0-47.0) % MCV (80.0-98.0) fL MCH (27.0-33.0) pg MCHC (31.0-35.0) g/dl RDW (11.0-16.0) % Plt Count (160-400) X10*3/uL MPV (9.4-12.3) fL Immature Gran % (Auto) (0.0-0.4) % Neut % (Auto) (45-73) % Lymph % (Auto) (20-40) % [place] % (Auto) (2-11) % Eos % (Auto) (0-4) % Baso % (Auto) (0-2) % Lymph # (Auto) (1.2-4.9) X10*3/uL [place] # (Auto) (0.1-1.2) X10*3/uL Eos # (Auto) (0.0-0.4) X10*3/uL Baso # (Auto) (0.0-0.2) X10*3/uL Abs Immat Gran (auto) (0.00-0.03) X10*3/uL Absolute Neuts (auto) (2.0-8.3) x10*3/uL Absolute Nucleated RBC (0.0-0.012) X10*3/uL Nucleated RBC % (auto) (0.0-0.2) /100WBC Sodium (135-145) mmol/L Potassium (3.3-5.1) mmol/L Chloride (96-108) mmol/L Carbon Dioxide (22-29) mmol/L Anion Gap (12-20) BUN (9-16) mg/dL Creatinine (0.5-1.4) mg/dL Estim Creat Clear Calc Estimated GFR POC Glucose (60-115) mg/dL Random Glucose (60-115) mg/dL Calcium (8.4-10.2) mg/dL Magnesium (1.6-2.6) mg/dL Total Bilirubin (0.0-1.0) mg/dL AST (5-31) U/L ALT (0-31) U/L Alkaline Phosphatase (39-117) U/L Troponin I High Sens (<3.5-17.0) ng/L Total Protein (6.5-8.0) g/dL Albumin (3.5-5.0) g/dL Urine Color Yellow Urine Appearance Clear Urine pH 5.5 (5.0-9.0) Ur Specific [place] 1.015 (1.005-1.025) Urine Protein Negative (Neg-Trace) mg/dL Urine Glucose (UA) >=1000 H (Negative) mg/dL Urine Ketones Negative (Negative) mg/dL Urine Blood Negative (Negative) Urine Nitrite Negative (Negative) Ur Leukocyte Esterase Negative (Negative) Urine RBC 0-2 (0-2) /HPF Urine WBC 0-5 (0-5) /HPF Ur Squamous Epith Cells 0-2 (0-2) /HPF Urine Bacteria None Seen (None Seen) Hyaline Casts 3-5 (0-2) /LPF Influenza Type A (PCR) (Negative) Influenza Type B (PCR) (Negative) RSV RNA Qual (PCR) (Negative) SARS-CoV-2 RNA (RT-PCR) (Negative) <Hermelindo Pérez MD - Last Filed: 04/25/22 21:41> Discharge Plan Discharge Clinical Impression: Headache, Dizziness, Vomiting <VICTORIA Parmar - Last Filed: 04/25/22 14:37> Patient Disposition: Admitted As Inpatient <VICTORIA Parmar - Last Filed: 04/25/22 14:37>
--- NOTE | 2022-04-25 14:36 | ECG_ITS ---
Test Reason : DIZZINESS Blood Pressure : / mmHG Vent. Rate : 072 BPM Atrial Rate : 072 BPM P-R Int : 186 ms QRS Dur : 076 ms QT Int : 392 ms P-R-T Axes : 038 -14 025 degrees QTc Int : 429 ms Normal sinus rhythm Minimal voltage criteria for LVH, may be normal variant ( R in aVL ) Borderline ECG When compared with ECG of 30-SEP-2021 13:03, No significant change was found Referred By: Nely Boston Electronically Signed By:SHANNAN CRUZ
[2022-04-25 15:06] LABS: MANUAL DIFF FLAG NO
[2022-04-25 15:10] LABS: Basophils Percent Auto 0.3 % (0-2); Eosinophils Absolute Auto 0.3 X10*3/uL (0.0-0.4); Eosinophils Percent Auto 3.3 % (0-4); Hematocrit 34.2 % (37.0-47.0); Hemoglobin 10.9 g/dl (12.0-16.0); Imm Gran Abs Auto 0.02 X10*3/uL (0.00-0.03); Imm Gran Pct Auto 0.3 % (0.0-0.4); Lymphocytes Absolute Auto 2.8 X10*3/uL (1.2-4.9); Lymphocytes Percent Auto 34.6 % (20-40); Mean Corpuscular HGB Conc 31.9 g/dl (31.0-35.0); Mean Corpuscular Hemoglobin 28.3 pg (27.0-33.0); Mean Corpuscular Volume 88.8 fL (80.0-98.0); Mean Platelet Volume 10.3 fL (9.4-12.3); Monocytes Absolute Auto 0.5 X10*3/uL (0.1-1.2); Neutrophils Absolute Auto 4.5 x10*3/uL (2.0-8.3); Neutrophils Percent Auto 55.5 % (45-73); Platelet Count 157 X10*3/uL (160-400); Red Blood Count 3.85 X10*6/uL (4.20-5.50); Red Cell Distribution Width 13.5 % (11.0-16.0)
[2022-04-25 15:34] LABS: Alanine Aminotransferase 39 U/L (0-31); Albumin Level 3.9 g/dL (3.5-5.0); Alkaline Phosphatase 204 U/L (39-117); Anion Gap 14 (12-20); Aspartate Amino Transferase 38 U/L (5-31); Bilirubin Total 0.4 mg/dL (0.0-1.0); Blood Urea Nitrogen 36 mg/dL (9-16); Calcium 8.9 mg/dL (8.4-10.2); Carbon Dioxide 18 mmol/L (22-29); Chloride 110 mmol/L (96-108); Creatinine Clr Calc Pharmacy 25.9; Estimated Glomerular Filt Rate 24; Glucose Random 434 mg/dL (60-115); Potassium 4.9 mmol/L (3.3-5.1); Sodium 137 mmol/L (135-145); Total Protein 6.6 g/dL (6.5-8.0)
[2022-04-25 15:35] LABS: Troponin-I High Sensitivity < 3.5 ng/L (<3.5-17.0)
[2022-04-25 15:53] LABS: Influenza A PCR NEGATIVE (Negative); Influenza B PCR NEGATIVE (Negative); Resp Syncy Virus RNA Qual PCR NEGATIVE (Negative); SARS COV2 PCR INHOUSE NEGATIVE (Negative)
[2022-04-25 17:30] VITALS: BP 147/52; PULSE 62; RESP 16; TEMP 36.8; O2SAT 100
[2022-04-25 17:35] LABS: Glucose, Whole Blood 349 mg/dL (60-115)
[2022-04-25 18:28] LABS: Appearance Urine Clear; Color Urine Yellow; Glucose Urine UA >=1000 mg/dL (Negative); Leukocyte Esterase Urine Negative (Negative); Nitrite Urine Negative (Negative); PH 5.5 (5.0-9.0); Specific Gravity - Urine 1.015 (1.005-1.025); UMIC TRIGGER UACC YES; Urine Blood Negative (Negative); Urine Ketones Negative (Negative); Urine Protein Negative (Neg-Trace)
[2022-04-25 18:36] LABS: Troponin-I High Sensitivity 3.7 ng/L (<3.5-17.0)
[2022-04-25 18:47] LABS: Bacteria Urine None Seen (None Seen); RBC Urine 0-2 /HPF (0-2); Squamous Epithelial Cell Urine 0-2 /HPF (0-2); WBC Urine 0-5 /HPF (0-5)
[2022-04-25 18:53] VITALS: PULSE 74; RESP 14; O2SAT 100
[2022-04-25] MEDS: 0.9 % Sodium Chloride 1,000 ML 999 ML IVCONT (18:54)
[2022-04-25] MEDS: Morphine Sulfate 10 MG/ML CARTRIDGE 5 MG IVPUSH (18:56)
[2022-04-25] MEDS: Metoclopramide HCl 10 MG/2 ML VIAL IVPUSH (18:59)
[2022-04-25] MEDS: LORazepam 2 MG/ML VIAL 0.5 MG IVPUSH (18:59)
--- NOTE | 2022-04-25 19:02 | PC.NURSE ---
ilan [phone]
[2022-04-25 20:00] VITALS: BP 149/81; PULSE 87; RESP 16; TEMP 36.6; O2SAT 96
--- NOTE | 2022-04-25 20:05 | MHC.EDTECH ---
THIS PCT ASSUMED CARE OF PATIENT AT 1900 ,PATIENT VITALS SIGN TAKEN ,PATIENT SLEEPING ,CALL LUIS WITHIN REACH .
--- NOTE | 2022-04-25 20:11 | PC.NURSE ---
this rn assumed care of pt @ 1900. previous shift RN medicated pt according to may. morphine given iv for pain, pt able to sleep after receiving morphine. pt resting comfortably at this time
--- NOTE | 2022-04-25 21:32 | PC.NURSE ---
this rn assisted pt to bedside commode. pt changed over to hospital gown at this time. pt repositioned to bed, belongings placed within reach
[2022-04-25 21:44] VITALS: BP 144/73; PULSE 87; RESP 16; TEMP 36.6; O2SAT 97
[2022-04-25 21:50] LABS: Glucose, Whole Blood 266 mg/dL (60-115)
--- NOTE | 2022-04-25 21:58 | PC.NURSE ---
this rn performed bedside swallow eval. medical billing and coding instructor Vince at bedside to provide pt with instructions. pt PASSED.
[2022-04-25 23:30] LABS: Thyroid Stimulating Hormone 0.55 uIU/mL (0.32-4.0)
--- NOTE | 2022-04-26 | ECG_ITS ---
Test Reason : REPEAT Blood Pressure : / mmHG Vent. Rate : 092 BPM Atrial Rate : 092 BPM P-R Int : 216 ms QRS Dur : 074 ms QT Int : 330 ms P-R-T Axes : 053 -13 030 degrees QTc Int : 408 ms Artifact in tracing Sinus rhythm with 1st degree A-V block Otherwise normal ECG When compared with ECG of 25-APR-2022 14:49, MT interval has increased Referred By: Donald Hutchinson Electronically Signed By:SHANNAN CRUZ
--- NOTE | 2022-04-26 01:23 | PC.NURSE ---
this rn spoke to pt to inform of plan to bring up to [place] [id number]. pt states to nurse she is having chest burning sensation same as when she came in. dr aparicio informed of this. awaiting orders at this time
[2022-04-26 01:25] VITALS: BP 168/80; PULSE 92; RESP 19; O2SAT 96
[2022-04-26 02:23] LABS: Troponin-I High Sensitivity 9.1 ng/L (<3.5-17.0)
--- NOTE | 2022-04-26 02:30 | PC.NURSE ---
late entry- troponin and ekg obtained. copy of ekg sent to dr aparicio. per pt okay to send up to room while awaiting result from troponin
[2022-04-26 02:51] VITALS: BP 149/68; PULSE 92; RESP 20; TEMP 37.1; O2SAT 97
[2022-04-26] MEDS: Acetaminophen 325 MG TABLET 650 MG PO (03:06)
[2022-04-26] MEDS: ondansetron HCL 4 MG/2 ML VIAL IVPUSH (03:07)
[2022-04-26] MEDS: 0.9 % Sodium Chloride Flush 3 ML SYRINGE IVFLUSH ×2 (05:33→08:46)
[2022-04-26 06:15] LABS: MANUAL DIFF FLAG NO
[2022-04-26 06:24] LABS: Basophils Percent Auto 0.3 % (0-2); Eosinophils Absolute Auto 0.1 X10*3/uL (0.0-0.4); Eosinophils Percent Auto 1.9 % (0-4); Hematocrit 32.2 % (37.0-47.0); Hemoglobin 10.2 g/dl (12.0-16.0); Imm Gran Abs Auto 0.03 X10*3/uL (0.00-0.03); Imm Gran Pct Auto 0.4 % (0.0-0.4); Lymphocytes Absolute Auto 2.2 X10*3/uL (1.2-4.9); Lymphocytes Percent Auto 29.7 % (20-40); Mean Corpuscular HGB Conc 31.7 g/dl (31.0-35.0); Mean Corpuscular Hemoglobin 28.1 pg (27.0-33.0); Mean Corpuscular Volume 88.7 fL (80.0-98.0); Mean Platelet Volume 11.1 fL (9.4-12.3); Monocytes Absolute Auto 0.5 X10*3/uL (0.1-1.2); Monocytes Percent Auto 6.3 % (2-11); Neutrophils Absolute Auto 4.6 x10*3/uL (2.0-8.3); Neutrophils Percent Auto 61.4 % (45-73); Platelet Count 148 X10*3/uL (160-400); Red Blood Count 3.63 X10*6/uL (4.20-5.50); Red Cell Distribution Width 13.3 % (11.0-16.0); White Blood Count 7.5 X10*3/uL (4.8-10.8)
--- NOTE | 2022-04-26 06:44 | PM.IMHP ---
History of Present Illness Date of Service: 04/25/22 Chief Complaint: Headache 66-year-old female Occitan-speaking only, with past medical history of chronic anemia, asthma, CAD, CHF, chronic pancreatitis, diabetes, GERD, HTN, presents to the hospital with complaints of severe headache, as well as nausea vomiting. Patient reports that her symptoms started on day of presentation, reports the headache to be 10/10, frontal, nonradiating, not associated with any change in vision. She also has multiple episodes of nausea, and vomiting, with no blood. Denies any abdominal pain, no diarrhea constipation. Reports no chest pain, no change in vision, no shortness of breath, no weakness numbness or tingling, no urinary symptoms and no lower extremity edema. On arrival to the ED patient hemodynamically stable with no significant abnormal vitals labs are significant for WBC count of 8.0, hemoglobin of 10.9 which is around her baseline, creatinine of 2.1 which is also around her baseline, glucose left 400s, AST of 38, ALT of 39, alk-phos of 204, urine negative for any acute infection, viral serology negative Head CT shows no acute intracranial findings, no acute fracture or malalignment of the cervical spine Patient received multiple anti emetics as well as pain medications but continues to have symptoms therefore showed be admitted for intractable nausea vomiting, as well as headache Review of Systems Review of Systems: Yes all other systems are reviewed and are negative [facility] Medical History Anemia Anemia Ascending aorta dilatation Asthma CAD (coronary artery disease) CHF (congestive heart failure) Chronic pancreatitis DMII (diabetes mellitus, type 2) Elevated cholesterol Elevated LFTs Fatty liver GERD (gastroesophageal reflux disease) History of alcohol dependence History of colon polyps HTN (hypertension) Hx of acute pancreatitis Hx of acute renal failure Hx of diabetes with ketoacidosis Hx of non-ST elevation myocardial infarction (NSTEMI) IDDM (insulin dependent diabetes mellitus) Non-ischemic cardiomyopathy Sleep apnea Family History Father History of heart attack Mother No problems noted. Other No family history of cancer Surgical History History of cardiac cath History of esophagogastroduodenoscopy (EGD) History of partial hysterectomy Hx of cholecystectomy Hx of colonoscopy Hx of lithotripsy Social History Household Members: Children Housing: Apartment Are you a primary care administrative tech to a significant other at home: No Do you presently have visiting nurse or other home services: No Alcohol intake: never Patient Tobacco Use Status: Never used Tobacco Smoked in Last 30 Days: No Use of substances other than those prescribed or required for medical reasons: No Any prior treatment program specific to substance use: No Have you been hit, kicked, punched, or otherwise hurt by someone within the past year? If so, by whom?: No Do you feel safe in your current relationship?: No Current Relationship Is there a partner from a previous relationship who is making you feel unsafe now?: No Are you made to feel afraid or neglected: No Advance Directives: Yes Advance Directives on File: Yes Advance Directives Date on File: 07/02/21 Do you have thoughts of harming others: None Do you have a plan to hurt others: No Plan Recently lost weight without trying: Unsure Patient : No service: No Current occupational status: disabled Meds Allergies Allergy/AdvReac Type Severity Reaction Status Date / Time simvastatin [SIMVASTATIN] AdvReac Unknown Unknown Verified 04/18/22 15:41 Active Medications: Current Medications Acetaminophen (Acetaminophen 325 Mg Tablet) 650 mg PO Q6H PRN PRN Reason: Pain, Mild (Pain Scale 1-3) Last Admin: 04/26/22 03:06 Dose: 650 mg Dextrose (Dextrose 50 % 25 Gm/50 Ml Syringe) 25 gm IVPUSH Q15M PRN; Protocol PRN Reason: per Hypoglycemia Standing Ord. Docusate Sodium (Docusate Sodium 100 Mg Capsule) 100 mg PO DAILY PRN PRN Reason: Constipation Glucose (Glucose Gel 15 Gm Gel..Gram.) 15 gm PO Q15M PRN; Protocol PRN Reason: per Hypoglycemia Standing Ord. Insulin Human Lispro (Insulin Lispro 100 Unit/Ml 3 Ml Vial) 0 unit SUBCUT QIDACHS [facility]; Protocol Ondansetron HCl (Ondansetron Hcl 4 Mg/2 Ml Vial) 4 mg IVPUSH Q8H PRN PRN Reason: Nausea and Vomiting Last Admin: 04/26/22 03:07 Dose: 4 mg Pharmacy Consult (Consult Rx Perform Med Rec) 1 each MISCELLANE ONCE PRN PRN Reason: Consult order Sodium Chloride (0.9 % Sodium Chloride Flush 3 Ml Syringe) 3 ml IVFLUSH [facility] Last Admin: 04/26/22 05:33 Dose: 3 ml Home Medications Medication Instructions Recorded Confirmed Last Taken Type albuterol sulfate 90 mcg/actuation 2 puff inhalation Q4-6H PRN 03/14/20 04/18/22 Unknown History aerosol inhaler Shortness Of Breath Or Wheezing carvedilol 3.125 mg tablet 3.125 mg PO BID 03/14/20 04/18/22 07/27/21 History ergocalciferol (vitamin D2) 1,250 1,250 mcg PO MO 03/14/20 04/18/22 07/22/21 History mcg (50,000 unit) capsule (Vitamin D2) folic acid 1 mg tablet 1 mg PO DAILY 03/14/20 04/18/22 07/27/21 History calcium carbonate 200 mg calcium 1 tab PO BID PRN Heartburn 07/28/20 04/18/22 07/01/21 History (500 mg) chewable tablet (Calcium Antacid) acetaminophen 650 mg 1 tab PO Q8H PRN fever 07/01/21 04/18/22 Unknown History tablet,extended release baclofen 10 mg tablet 1 tab PO TID PRN muscle spasm 07/01/21 04/18/22 Unknown History fluticasone propionate 110 2 puff inhalation BID 07/01/21 04/18/22 07/27/21 History mcg/actuation HFA aerosol inhaler (Flovent HFA) gabapentin 100 mg capsule 1 cap PO BEDTIME 07/01/21 04/18/22 07/27/21 History insulin lispro 100 unit/mL 100 unit subcut BID@0730,1130 07/01/21 04/18/22 06/30/21 History subcutaneous pen (Humalog KwikPen (U-100) Insulin) ketotifen fumarate 0.025 % (0.035 1 drp ophthalmic (eye) BID 07/01/21 04/18/22 07/27/21 History %) eye drops loratadine 10 mg tablet 10 mg PO DAILY 07/01/21 04/18/22 07/27/21 History lidocaine 5 % topical patch 1 patch topical DAILY 07/28/21 04/18/22 07/27/21 History atorvastatin 80 mg tablet (Lipitor) 80 mg PO DAILY 08/01/21 04/18/22 Unknown History dextrose 1 gram chewable tablet 4 g PO Q15M PRN Hypoglycemia 08/01/21 04/18/22 Unknown History diclofenac sodium 1 % topical gel 2 g topical BID PRN Pain 08/01/21 04/18/22 Unknown History pantoprazole 40 mg tablet,delayed 40 mg PO BID 08/01/21 04/18/22 Unknown History release (Protonix) aspirin 81 mg chewable tablet 81 mg PO DAILY 08/15/21 04/18/22 Unknown History potassium chloride 8 mEq 8.3 meq PO 3XW 09/13/21 04/18/22 Unknown History tablet,extended release Physical Exam Vital Signs and Narrative: Vital Signs: Last Vital Signs Temp 98.7 F 04/26/22 02:51 Pulse 92 04/26/22 02:51 Resp 20 04/26/22 02:51 BP 149/68 H 04/26/22 02:51 Pulse Ox 97 04/26/22 02:51 O2 Del Method 04/26/22 02:51 BMI result Body Mass Index 34.2 Const: Other: Patient appears ill, General: cooperative Orientation/consciousness: patient oriented x3 Eyes: General: appearance normal, both eyes and all related structures Resp: Effort & Inspection: normal respiratory effort Auscultation: clear to auscultation bilaterally Cardio: Rate: regular rate Rhythm: regular rhythm GI: Other: Abdomen is soft, nontender, no rebound or guarding Palpation (GI): Soft to palpation Auscultation: normal bowel sounds Skin: General skin exam: no rashes or lesions noted Neuro: General: patient oriented x3 Cognition (Neuro): normal cognition Extrem: General: Yes normal to inspection and Yes no pedal edema Results Labs 04/26/22 05:34 04/25/22 14:55 Labs: Laboratory Results - last 24 hr 04/25/22 04/25/22 04/25/22 14:55 14:55 14:55 MCV 88.8 MCH 28.3 MCHC 31.9 RDW 13.5 Plt Count 157 L MPV 10.3 Immature Gran % (Auto) 0.3 Neut % (Auto) 55.5 Lymph % (Auto) 34.6 Mccone % (Auto) 6.0 Eos % (Auto) 3.3 Baso % (Auto) 0.3 Lymph # (Auto) 2.8 Mccone # (Auto) 0.5 Eos # (Auto) 0.3 Baso # (Auto) 0.0 Abs Immat Gran (auto) 0.02 Absolute Neuts (auto) 4.5 Absolute Nucleated RBC 0.000 Nucleated RBC % (auto) 0.0 Anion Gap 14 Estim Creat Clear Calc 25.9 Estimated GFR 24 POC Glucose Random Glucose 434 H* Calcium 8.9 Magnesium 2.0 Total Bilirubin 0.4 AST 38 H ALT 39 H Alkaline Phosphatase 204 H Troponin I High Sens < 3.5 Total Protein 6.6 Albumin 3.9 TSH Urine Color Urine Appearance Urine pH Ur Specific [place] Urine Protein Urine Glucose (UA) Urine Ketones Urine Blood Urine Nitrite Ur Leukocyte Esterase Urine RBC Urine WBC Ur Squamous Epith Cells Urine Bacteria Hyaline Casts Influenza Type A (PCR) Influenza Type B (PCR) RSV RNA Qual (PCR) SARS-CoV-2 RNA (RT-PCR) 04/25/22 04/25/22 04/25/22 14:55 14:55 17:29 MCV MCH MCHC RDW Plt Count MPV Immature Gran % (Auto) Neut % (Auto) Lymph % (Auto) Mccone % (Auto) Eos % (Auto) Baso % (Auto) Lymph # (Auto) Mccone # (Auto) Eos # (Auto) Baso # (Auto) Abs Immat Gran (auto) Absolute Neuts (auto) Absolute Nucleated RBC Nucleated RBC % (auto) Anion Gap Estim Creat Clear Calc Estimated GFR POC Glucose 349 H Random Glucose Calcium Magnesium Total Bilirubin AST ALT Alkaline Phosphatase Troponin I High Sens Total Protein Albumin TSH 0.55 Urine Color Urine Appearance Urine pH Ur Specific [place] Urine Protein Urine Glucose (UA) Urine Ketones Urine Blood Urine Nitrite Ur Leukocyte Esterase Urine RBC Urine WBC Ur Squamous Epith Cells Urine Bacteria Hyaline Casts Influenza Type A (PCR) NEGATIVE Influenza Type B (PCR) NEGATIVE RSV RNA Qual (PCR) NEGATIVE SARS-CoV-2 RNA (RT-PCR) NEGATIVE 04/25/22 04/25/22 04/25/22 17:57 18:05 21:42 MCV MCH MCHC RDW Plt Count MPV Immature Gran % (Auto) Neut % (Auto) Lymph % (Auto) Mccone % (Auto) Eos % (Auto) Baso % (Auto) Lymph # (Auto) Mccone # (Auto) Eos # (Auto) Baso # (Auto) Abs Immat Gran (auto) Absolute Neuts (auto) Absolute Nucleated RBC Nucleated RBC % (auto) Anion Gap Estim Creat Clear Calc Estimated GFR POC Glucose 266 H Random Glucose Calcium Magnesium Total Bilirubin AST ALT Alkaline Phosphatase Troponin I High Sens 3.7 Total Protein Albumin TSH Urine Color Yellow Urine Appearance Clear Urine pH 5.5 Ur Specific [place] 1.015 Urine Protein Negative Urine Glucose (UA) >=1000 H Urine Ketones Negative Urine Blood Negative Urine Nitrite Negative Ur Leukocyte Esterase Negative Urine RBC 0-2 Urine WBC 0-5 Ur Squamous Epith Cells 0-2 Urine Bacteria None Seen Hyaline Casts 3-5 Influenza Type A (PCR) Influenza Type B (PCR) RSV RNA Qual (PCR) SARS-CoV-2 RNA (RT-PCR) 04/26/22 04/26/22 01:50 05:34 MCV 88.7 MCH 28.1 MCHC 31.7 RDW 13.3 Plt Count 148 L MPV 11.1 Immature Gran % (Auto) 0.4 Neut % (Auto) 61.4 Lymph % (Auto) 29.7 Mccone % (Auto) 6.3 Eos % (Auto) 1.9 Baso % (Auto) 0.3 Lymph # (Auto) 2.2 Mccone # (Auto) 0.5 Eos # (Auto) 0.1 Baso # (Auto) 0.0 Abs Immat Gran (auto) 0.03 Absolute Neuts (auto) 4.6 Absolute Nucleated RBC 0.000 Nucleated RBC % (auto) 0.0 Anion Gap Estim Creat Clear Calc Estimated GFR POC Glucose Random Glucose Calcium Magnesium Total Bilirubin AST ALT Alkaline Phosphatase Troponin I High Sens 9.1 D Total Protein Albumin TSH Urine Color Urine Appearance Urine pH Ur Specific [place] Urine Protein Urine Glucose (UA) Urine Ketones Urine Blood Urine Nitrite Ur Leukocyte Esterase Urine RBC Urine WBC Ur Squamous Epith Cells Urine Bacteria Hyaline Casts Influenza Type A (PCR) Influenza Type B (PCR) RSV RNA Qual (PCR) SARS-CoV-2 RNA (RT-PCR) Imaging Radiologist's Impressions: Impressions Chest X-Ray 04/25/22 15:22 IMPRESSION: Streaky left basilar opacities favor atelectasis. No consolidation. Cervical Spine CT 04/25/22 15:32 IMPRESSION: 1. No acute intracranial finding. 2. No acute fracture or malalignment of the cervical spine. Mild degenerative changes. Head CT 04/25/22 15:32 IMPRESSION: 1. No acute intracranial finding. 2. No acute fracture or malalignment of the cervical spine. Mild degenerative changes. Assessment and Plan (1) Intractable headache: Status: Acute (2) Nausea & vomiting: Status: Acute Plan 66-year-old female with past medical history as mentioned above presents to the hospital with headache nausea vomiting. # intractable headache - possibly secondary to migraine - CT head negative - no neurological deficit - monitor - p.r.n. pain control # nausea vomiting - likely secondary to above - versus viral gastroenteritis - no diarrhea, abdomen is soft nontender - antiemetic - monitor # diabetes - was hyperglycemic on arrival, now better controlled glucose - will start her on low-dose sliding scale insulin, diabetic diet, and continue home meds # GERD - continue pantoprazole # CKD - stage 4 - baseline creatinine BUN - follow BMP # CAD - no chest pain = continue carvedilol as well as asked DVT prophylaxis: Early ambulation Time Spent With Patient Time: Total time managing care of this patient today ____ minutes. Quality Stroke Does the patient have a stroke diagnosis?: No VTE Prior VTE?: No VTE Risk Level:: Medical - moderate - high VTE Device Contraindication: Treatment Not Indicated VTE Drug Contraindication: Treatment Not Indicated
[2022-04-26 06:55] LABS: Anion Gap 15 (12-20); Blood Urea Nitrogen 27 mg/dL (9-16); Calcium 8.8 mg/dL (8.4-10.2); Carbon Dioxide 17 mmol/L (22-29); Chloride 117 mmol/L (96-108); Creatinine Clr Calc Pharmacy 35.1; Estimated Glomerular Filt Rate 34; Glucose Random 272 mg/dL (60-115); Potassium 4.7 mmol/L (3.3-5.1); Sodium 144 mmol/L (135-145)
[2022-04-26 07:42] LABS: Glucose, Whole Blood 236 mg/dL (60-115)
[2022-04-26 08:00] VITALS: BP 140/63; PULSE 73; RESP 20; TEMP 36.8; O2SAT 97
[2022-04-26] MEDS: Insulin Lispro 100 UNIT/ML 3 ML VIAL SUBCUT ×2 (08:45→11:53)
--- NOTE | 2022-04-26 09:07 | PHA.MEDREC ---
Pharmacy Consult ? Medication Reconciliation Pharmacy has completed the medication reconciliation. 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 Patient poor historian of medications. Spoke to daughter Trinity ([phone]) to confirm meds.
[2022-04-26 11:37] LABS: Glucose, Whole Blood 379 mg/dL (60-115)
[2022-04-26] MEDS: carvediloL 3.125 MG TABLET PO (11:53)
[2022-04-26] MEDS: Insulin Glargine,Hum.rec.anlog 100 UNIT/ML 10 ML VIAL 15 UNIT SUBCUT (11:54)
--- NOTE | 2022-04-26 12:09 | P.DS_ITS ---
DS: Providers Provider Date of Service: 04/26/22 Date of admission: 04/25/22 22:20 Primary care physician: Myra Persaud DO DS: Diagnosis Discharge Diagnosis (1) Intractable headache: Status: Acute (2) Nausea & vomiting: Status: Acute DS: Summary Hospital Course Hospital Course: Admission note HPI 66-year-old female Occitan-speaking only, with past medical history of chronic anemia, asthma, CAD, CHF, chronic pancreatitis, diabetes, GERD, HTN, presents to the hospital with complaints of severe headache, as well as nausea vomiting.? Patient reports that her symptoms started on day of presentation, reports the headache to be 10/10, frontal, nonradiating, not associated with any change in vision.? She also has multiple episodes of nausea, and vomiting, with no blood.? Denies any abdominal pain, no diarrhea constipation.? Reports no chest pain, no change in vision, no shortness of breath, no weakness numbness or tingling, no urinary symptoms and no lower extremity edema.? On arrival to the ED patient hemodynamically stable with no significant abnormal vitals.?labs are significant for WBC count of 8.0, hemoglobin of 10.9 which is around her baseline, creatinine of 2.1 which is also around her baseline, gluc ose left 400s, AST of 38, ALT of 39, alk-phos of 204, urine negative for any acute infection, viral serology negative Head CT shows no acute intracranial findings, no acute fracture or malalignment of the cervical spine Patient received multiple anti emetics as well as pain medications but continues to have symptoms therefore showed be admitted for intractable nausea vomiting, as well as headache Hospital course The patient was admitted to the hospital for observation of intractable nausea and vomiting with associated headache. CT head was negative for any acute findings. CXR showed left lower lobe small atelectasis with no signs of infection as WBCs, temperature within normal with no reported respiratory complaints. Respiratory viral panel came back negative. Mildly elevated liver enzymes likely from dehydration on presentation. Treated with symptomatic measures of pain medication, Zofran and fluids with good response over the course overnight as the headache and nausea resolved and she was able to tolerate diet. Use Tylenol as needed for headache Zofran as needed for nausea Please come back to the hospital for any worsening abdominal pain, fever or intractable pain Time Spent with Patient Time attestation: Total time managing care of this patient today ____ minutes. Discharge coordination time: Less than 30 minutes Quality: Safe Use of Opioids Does Pt have an Active Cancer Diagnosis on the Problem List?: No Quality: Stroke Does the patient have a stroke diagnosis?: No Physical Exam Vital Signs: Vital Signs: Last Vital Signs Temp 98.3 F 04/26/22 08:00 Pulse 73 04/26/22 08:00 Resp 20 04/26/22 08:00 BP 140/63 H 04/26/22 08:00 Pulse Ox 97 04/26/22 08:00 O2 Del Method 04/26/22 08:00 BMI result Body Mass Index 34.2 Const: Other: Constitutional : Awake, interactive, not in distress Neck : Normal inspection, Supple Cardiovascular : RRR, no JVP, no lower extremity edema Respiratory : good bilateral air entry, no crackles, wheezes or rhonchi Gastrointestinal: soft, lax, Normal bowel sounds, Non tender Skin : Warm, Dry Neurological : Alert & oriented x3, No focal deficit DS: Data Data Completed and Pending Completed studies during hospitalization [Text1]: Procedures Transfusion of Nonautologous Red Blood Cells into Peripheral Vein, Percutaneous Approach (07/28/21) Labs on day of discharge: Laboratory Results - last 24 hr 04/25/22 04/25/22 04/25/22 14:55 14:55 14:55 WBC 8.0 RBC 3.85 L Hgb 10.9 L Hct 34.2 L MCV 88.8 MCH 28.3 MCHC 31.9 RDW 13.5 Plt Count 157 L MPV 10.3 Immature Gran % (Auto) 0.3 Neut % (Auto) 55.5 Lymph % (Auto) 34.6 [place] % (Auto) 6.0 Eos % (Auto) 3.3 Baso % (Auto) 0.3 Lymph # (Auto) 2.8 [place] # (Auto) 0.5 Eos # (Auto) 0.3 Baso # (Auto) 0.0 Abs Immat Gran (auto) 0.02 Absolute Neuts (auto) 4.5 Absolute Nucleated RBC 0.000 Nucleated RBC % (auto) 0.0 Sodium 137 Potassium 4.9 Chloride 110 H Carbon Dioxide 18 L Anion Gap 14 BUN 36 H Creatinine 2.10 H Estim Creat Clear Calc 25.9 Estimated GFR 24 POC Glucose Random Glucose 434 H* Calcium 8.9 Magnesium 2.0 Total Bilirubin 0.4 AST 38 H ALT 39 H Alkaline Phosphatase 204 H Troponin I High Sens < 3.5 Total Protein 6.6 Albumin 3.9 TSH Urine Color Urine Appearance Urine pH Ur Specific [place] Urine Protein Urine Glucose (UA) Urine Ketones Urine Blood Urine Nitrite Ur Leukocyte Esterase Urine RBC Urine WBC Ur Squamous Epith Cells Urine Bacteria Hyaline Casts Influenza Type A (PCR) Influenza Type B (PCR) RSV RNA Qual (PCR) SARS-CoV-2 RNA (RT-PCR) 04/25/22 04/25/22 04/25/22 14:55 14:55 17:29 WBC RBC Hgb Hct MCV MCH MCHC RDW Plt Count MPV Immature Gran % (Auto) Neut % (Auto) Lymph % (Auto) [place] % (Auto) Eos % (Auto) Baso % (Auto) Lymph # (Auto) [place] # (Auto) Eos # (Auto) Baso # (Auto) Abs Immat Gran (auto) Absolute Neuts (auto) Absolute Nucleated RBC Nucleated RBC % (auto) Sodium Potassium Chloride Carbon Dioxide Anion Gap BUN Creatinine Estim Creat Clear Calc Estimated GFR POC Glucose 349 H Random Glucose Calcium Magnesium Total Bilirubin AST ALT Alkaline Phosphatase Troponin I High Sens Total Protein Albumin TSH 0.55 Urine Color Urine Appearance Urine pH Ur Specific [place] Urine Protein Urine Glucose (UA) Urine Ketones Urine Blood Urine Nitrite Ur Leukocyte Esterase Urine RBC Urine WBC Ur Squamous Epith Cells Urine Bacteria Hyaline Casts Influenza Type A (PCR) NEGATIVE Influenza Type B (PCR) NEGATIVE RSV RNA Qual (PCR) NEGATIVE SARS-CoV-2 RNA (RT-PCR) NEGATIVE 04/25/22 04/25/22 04/25/22 17:57 18:05 21:42 WBC RBC Hgb Hct MCV MCH MCHC RDW Plt Count MPV Immature Gran % (Auto) Neut % (Auto) Lymph % (Auto) [place] % (Auto) Eos % (Auto) Baso % (Auto) Lymph # (Auto) [place] # (Auto) Eos # (Auto) Baso # (Auto) Abs Immat Gran (auto) Absolute Neuts (auto) Absolute Nucleated RBC Nucleated RBC % (auto) Sodium Potassium Chloride Carbon Dioxide Anion Gap BUN Creatinine Estim Creat Clear Calc Estimated GFR POC Glucose 266 H Random Glucose Calcium Magnesium Total Bilirubin AST ALT Alkaline Phosphatase Troponin I High Sens 3.7 Total Protein Albumin TSH Urine Color Yellow Urine Appearance Clear Urine pH 5.5 Ur Specific [place] 1.015 Urine Protein Negative Urine Glucose (UA) >=1000 H Urine Ketones Negative Urine Blood Negative Urine Nitrite Negative Ur Leukocyte Esterase Negative Urine RBC 0-2 Urine WBC 0-5 Ur Squamous Epith Cells 0-2 Urine Bacteria None Seen Hyaline Casts 3-5 Influenza Type A (PCR) Influenza Type B (PCR) RSV RNA Qual (PCR) SARS-CoV-2 RNA (RT-PCR) 04/26/22 04/26/22 04/26/22 01:50 05:34 05:34 WBC 7.5 RBC 3.63 L Hgb 10.2 L Hct 32.2 L MCV 88.7 MCH 28.1 MCHC 31.7 RDW 13.3 Plt Count 148 L MPV 11.1 Immature Gran % (Auto) 0.4 Neut % (Auto) 61.4 Lymph % (Auto) 29.7 [place] % (Auto) 6.3 Eos % (Auto) 1.9 Baso % (Auto) 0.3 Lymph # (Auto) 2.2 [place] # (Auto) 0.5 Eos # (Auto) 0.1 Baso # (Auto) 0.0 Abs Immat Gran (auto) 0.03 Absolute Neuts (auto) 4.6 Absolute Nucleated RBC 0.000 Nucleated RBC % (auto) 0.0 Sodium 144 Potassium 4.7 Chloride 117 H Carbon Dioxide 17 L Anion Gap 15 BUN 27 H Creatinine 1.55 H Estim Creat Clear Calc 35.1 Estimated GFR 34 POC Glucose Random Glucose 272 H Calcium 8.8 Magnesium Total Bilirubin AST ALT Alkaline Phosphatase Troponin I High Sens 9.1 D Total Protein Albumin TSH Urine Color Urine Appearance Urine pH Ur Specific [place] Urine Protein Urine Glucose (UA) Urine Ketones Urine Blood Urine Nitrite Ur Leukocyte Esterase Urine RBC Urine WBC Ur Squamous Epith Cells Urine Bacteria Hyaline Casts Influenza Type A (PCR) Influenza Type B (PCR) RSV RNA Qual (PCR) SARS-CoV-2 RNA (RT-PCR) 04/26/22 04/26/22 07:38 11:23 WBC RBC Hgb Hct MCV MCH MCHC RDW Plt Count MPV Immature Gran % (Auto) Neut % (Auto) Lymph % (Auto) [place] % (Auto) Eos % (Auto) Baso % (Auto) Lymph # (Auto) [place] # (Auto) Eos # (Auto) Baso # (Auto) Abs Immat Gran (auto) Absolute Neuts (auto) Absolute Nucleated RBC Nucleated RBC % (auto) Sodium Potassium Chloride Carbon Dioxide Anion Gap BUN Creatinine Estim Creat Clear Calc Estimated GFR POC Glucose 236 H 379 H* Random Glucose Calcium Magnesium Total Bilirubin AST ALT Alkaline Phosphatase Troponin I High Sens Total Protein Albumin TSH Urine Color Urine Appearance Urine pH Ur Specific [place] Urine Protein Urine Glucose (UA) Urine Ketones Urine Blood Urine Nitrite Ur Leukocyte Esterase Urine RBC Urine WBC Ur Squamous Epith Cells Urine Bacteria Hyaline Casts Influenza Type A (PCR) Influenza Type B (PCR) RSV RNA Qual (PCR) SARS-CoV-2 RNA (RT-PCR) Imaging CT scan - head: Radiologist's impression: ITS Impressions Chest X-Ray 04/25/22 15:22 IMPRESSION: Streaky left basilar opacities favor atelectasis. No consolidation. Cervical Spine CT 04/25/22 15:32 IMPRESSION: 1. No acute intracranial finding. 2. No acute fracture or malalignment of the cervical spine. Mild degenerative changes. Head CT 04/25/22 15:32 IMPRESSION: 1. No acute intracranial finding. 2. No acute fracture or malalignment of the cervical spine. Mild degenerative changes. Discharge Plan Discharge Anticipated Discharge Date/Time: 04/26/22 11:52 Patient Disposition: Home, Self-Care Discharge Diagnosis: Nausea and vomiting Headache Referrals: Myra Persaud DO [Primary Care Provider] - 1 Week Discharge Medications: New ondansetron 4 mg tablet,disintegrating 4 mg PO Q8H PRN (Reason: nausea and vomiting) Qty: 14 0RF Continued Creon 24,000-76,000 -120,000 unit capsule,delayed release(DR/EC) 1 cap PO TIDWM 30 Days Qty: 90 3RF Rx Instructions: administer with meals and/or snacks albuterol sulfate 90 mcg/actuation Hfa Aerosol Inhaler 2 puff INHALATION Q4-6H PRN (Reason: Shortness Of Breath Or Wheezing) carvedilol 3.125 mg Tablet 3.125 mg PO BID folic acid 1 mg Tablet 1 mg PO DAILY calcium carbonate [Calcium Antacid] 200 mg calcium (500 mg) tablet,chewable 1 tab PO BID PRN (Reason: Heartburn) lidocaine 5 % Adhesive Patch,Medicated 1 patch TOPICAL DAILY Rx Instructions: leave on most painful area for up to 12 hrs docusate sodium 100 mg capsule 1 cap PO BID insulin lispro [Humalog KwikPen Insulin] 100 unit/mL insulin pen 12 unit subcut DAILY@1430 Rx Instructions: administer before supper insulin glargine [Lantus U-100 Insulin] 100 unit/mL solution 15 unit subcut DAILY ketotifen fumarate 0.025 % (0.035 %) drops 1 drp ophthalmic (eye) BID acetaminophen 650 mg tablet extended release 1 tab PO Q8H PRN (Reason: fever) baclofen 10 mg tablet 1 tab PO TID PRN (Reason: muscle spasm) gabapentin 100 mg capsule 1 cap PO BEDTIME loratadine 10 mg Tablet 10 mg PO DAILY fluticasone propionate [Flovent HFA] 110 mcg/actuation HFA aerosol inhaler 2 puff inhalation BID Rx Instructions: rinse mouth after use insulin lispro [Humalog KwikPen Insulin] 100 unit/mL insulin pen 10 unit subcut DAILY@0730 Rx Instructions: SLIDING SCALE; admin before breakfast atorvastatin [Lipitor] 80 mg Tablet 80 mg PO BEDTIME pantoprazole [Protonix] 40 mg Tablet,Delayed Release (Dr/Ec) 40 mg PO BID Rx Instructions: admin before meals dextrose 1 gram Tablet,Chewable 4 g PO Q15M PRN (Reason: Hypoglycemia) Rx Instructions: until symptoms of low blood sugar are controlled aspirin 81 mg tablet,chewable 81 mg PO DAILY polyethylene glycol 3350 [Miralax] 17 gram/dose powder 17 g PO DAILY 60 Days Qty: 1020 3RF Discharge Orders: Discharge Order (Routine); Ordered 04/26/22 Ordered By: Wilberto Silva Diet: Advance to usual diet Activity on Discharge: As tolerated Stand Alone Forms: Patient Portal Discharge page Care Plan Goals: Read below Health Concerns: Read below Plan of Treatment: Read below Assessment: You were admitted to the hospital for evaluation of headache along with nausea and vomiting. Images of your brain and chest were negative for any acute findings. You were treated with symptomatic measures of pain and nausea medication with good response. You were able to tolerate diet well. Use Tylenol as needed for headache Zofran as needed for nausea Please come back to the hospital for any worsening abdominal pain, fever or intractable pain
--- NOTE | 2022-04-26 12:16 | MHC.CM.PN ---
MD order for home, self care, CM acknowledge. MD order prior to CM interview opportunity.
== END 2022-04-26 13:54 | disposition home or self-care (01) ==
LOC: HO.ED 21:38 → HO.EDOVER 22:31 → HO.S3 04-26 00:12
PROVIDERS: Physician Assistant Medical; Admitting Provider Internal Medicine; Emergency Provider Emergency Medicine; PCP Family Medicine; Visit Provider Student in an Organized Health Care Education/Training Program
DX: R51.9 Headache, unspecified (principal); R11.2 Nausea with vomiting, unspecified; I25.10 Atherosclerotic heart disease of native coronary artery without angina pectoris; I50.9 Heart failure, unspecified; E11.9 Type 2 diabetes mellitus without complications; Z79.4 Long term (current) use of insulin; Z20.822 Contact with and (suspected) exposure to COVID-19
CPT/HCPCS: 0241U; 36415; 70450; 71046; 72125; 80048; 80053; 81001; 82947; 83735; 84443; 84484; 85025; 93005; 96372; 96374; 99221; 99285; J2060; J2270; J2405; J2765

== ENCOUNTER → 2022-06-19 09:37 | Outpatient (BNVA) | payer MEDICARE, MEDICAID, SELFPAY | PROVIDERS: PCP Family Medicine; Visit Provider Internal Medicine Gastroenterology | DX: R93.3 Abnormal findings on diagnostic imaging of other parts of digestive tract (principal); K86.1 Other chronic pancreatitis | CPT/HCPCS: 99212 ==

== ENCOUNTER 2022-07-25 06:37 | Day surgery (SDC) | payer MEDICARE, MEDICAID, SELFPAY ==
[2022-07-22 11:44] VITALS: BMI 34.2
--- NOTE | 2022-07-24 09:29 | P.CONAN_ITS ---
Documented by User: Shannan Rosales NP 07/24/22 13:04 HPI - Anesthesia Eval Consult details Narrative: 66yo F for Colonoscopy Cardiac cleared Renal eval 05/2022 - CKD St 4 with baseline creat ~ 1.9 PMFSH Active Problems Active Problems: All Active Problems (Updated 07/22/22 @ 11:34 by Drea Plata, RN) Diverticulosis (Acute) Anemia (Acute) Elevated lipase (Acute) ANGELY (acute kidney injury) (Acute) UTI (urinary tract infection) (Acute) Normocytic anemia (Acute) Depression (Acute) Elevated CEA (Acute) ANGELY (acute kidney injury) (Acute) Rhabdomyolysis (Acute) Enteritis (Acute) Abnormal CT scan, gastrointestinal tract (Acute) Chronic calcific pancreatitis (Acute) Past Medical History Medical History (Updated 07/22/22 @ 11:34 by Drea Plata, RN) Abnormal nuclear stress test Alcohol abuse Anemia Anemia Ascending aorta dilatation Asthma CAD (coronary artery disease) CHF (congestive heart failure) Chronic pancreatitis Chronic respiratory failure DMII (diabetes mellitus, type 2) Elevated cholesterol Elevated LFTs Fatty liver GERD (gastroesophageal reflux disease) History of alcohol dependence History of colon polyps History of palpitations HTN (hypertension) Hx of acute pancreatitis Hx of acute renal failure Hx of diabetes with ketoacidosis Hx of non-ST elevation myocardial infarction (NSTEMI) Hyperglycemia IDDM (insulin dependent diabetes mellitus) Metabolic acidosis Non-ischemic cardiomyopathy Obesity hypoventilation syndrome Sleep apnea Family History Family History Father History of heart attack Mother No problems noted. Other No family history of cancer Surgical History Surgical History History of cardiac cath History of esophagogastroduodenoscopy (EGD) History of partial hysterectomy Hx of cholecystectomy Hx of colonoscopy Hx of lithotripsy Social History Social History Household Members: Children Housing: Apartment Are you a primary day care director to a significant other at home: No Do you presently have visiting nurse or other home services: No Alcohol intake: never Patient Tobacco Use Status: Never used Tobacco Use of substances other than those prescribed or required for medical reasons: No Advance Directives: Yes Advance Directives Information Provided: No Advance Directives on File: Yes Advance Directives Date on File: 07/02/21 service: No Current occupational status: disabled Meds Allergies Allergy/AdvReac Type Severity Reaction Status Date / Time simvastatin [SIMVASTATIN] AdvReac Unknown Unknown Verified 07/11/22 15:24 Home Medications Medication Instructions Recorded Confirmed Last Taken Type albuterol sulfate 90 mcg/actuation 2 puff inhalation Q4-6H PRN 03/14/20 07/22/22 Unknown History aerosol inhaler Shortness Of Breath Or Wheezing carvedilol 3.125 mg tablet 3.125 mg PO BID 03/14/20 07/25/22 07/25/22 History folic acid 1 mg tablet 1 mg PO DAILY 03/14/20 07/22/22 04/25/22 09:00 History calcium carbonate 200 mg calcium 1 tab PO BID PRN Heartburn 07/28/20 07/22/22 07/01/21 History (500 mg) chewable tablet (Calcium Antacid) acetaminophen 650 mg 1 tab PO Q8H PRN fever 07/01/21 07/11/22 Unknown History tablet,extended release baclofen 10 mg tablet 1 tab PO TID PRN muscle spasm 07/01/21 07/22/22 Unknown History fluticasone propionate 110 2 puff inhalation BID 07/01/21 07/22/22 04/25/22 09:00 History mcg/actuation HFA aerosol inhaler (Flovent HFA) gabapentin 100 mg capsule 1 cap PO BEDTIME 07/01/21 07/22/22 04/24/22 History insulin lispro 100 unit/mL 10 unit subcut DAILY@0730 07/01/21 07/22/22 04/25/22 09:00 History subcutaneous pen (Humalog KwikPen (U-100) Insulin) ketotifen fumarate 0.025 % (0.035 1 drp ophthalmic (eye) BID 07/01/21 07/22/22 04/25/22 09:00 History %) eye drops loratadine 10 mg tablet 10 mg PO DAILY 07/01/21 07/22/22 04/25/22 09:00 History lidocaine 5 % topical patch 1 patch topical DAILY 07/28/21 07/22/22 04/25/22 09:00 History atorvastatin 80 mg tablet (Lipitor) 80 mg PO BEDTIME 08/01/21 07/22/22 04/24/22 History dextrose 1 gram chewable tablet 4 g PO Q15M PRN Hypoglycemia 08/01/21 07/11/22 Unknown History pantoprazole 40 mg tablet,delayed 40 mg PO BID 08/01/21 07/22/22 04/25/22 09:00 History release (Protonix) aspirin 81 mg chewable tablet 81 mg PO DAILY 08/15/21 07/22/22 04/25/22 09:00 History docusate sodium 100 mg capsule 1 cap PO BID 04/26/22 07/22/22 04/25/22 09:00 History insulin glargine 100 unit/mL 24 unit subcut BEDTIME 04/26/22 07/22/22 04/25/22 09:00 History subcutaneous solution (Lantus U-100 Insulin) insulin lispro 100 unit/mL 12 unit subcut DAILY@1430 04/26/22 07/22/22 04/24/22 History subcutaneous pen (Humalog KwikPen (U-100) Insulin) acetaminophen 650 mg 650 mg PO Q12H 06/19/22 07/22/22 Unknown History tablet,extended release (Arthritis Pain Reliever) amlodipine 2.5 mg-celecoxib 200 mg 1 tab PO DAILY 06/19/22 07/22/22 Unknown History tablet Exam Exam Date and Time: July 24, 2022 0929 Height,Weight and Vital Signs: Height 5 ft 1 in Weight 82.1 kg Pertinent Lab Results Pertinent Lab Results: Laboratory Tests 07/11/22 07/11/22 15:19 15:19 WBC 9.5 Hgb 10.2 L Hct 32.7 L Plt Count 183 Sodium 140 Potassium 4.9 Chloride 112 H Carbon Dioxide 22 BUN 31 H Creatinine 2.01 H Narrative Narrative: EKG 03/2022 Vent. Rate : 092 BPM ? ? Atrial Rate : 092 BPM ?? P-R Int : 216 ms? QRS Dur : 074 ms ? ? QT Int : 330 ms ? ? ? P-R-T Axes : 053 -13 030 degrees ?? QTc Int : 408 ms ? Artifact in tracing Sinus rhythm with 1st degree A-V block Otherwise normal ECG When compared with ECG of 25-APR-2022 14:49, ID interval has increased ECHO 2021 Conclusions: - Normal left ventricular size, thickness, systolic function, and wall motion. The visually estimated ejection fraction is between 55-60%.? - E/E prime ratio is between 8 and 15 consistent with? indeterminate filling pressures. ? - Normal right ventricular cavity size and systolic function.? ? - There is mild dilatation of the ascending aorta and mild ? ? ? dilatation of the aortic arch. ? ? ? Assessment and Plan Assessment Anesthesia Assessment: Chart Reviewed Documented by User: Fidelina Marrufo MD 07/25/22 08:28 [facility] Past Medical History Medical History (Updated 07/22/22 @ 11:34 by Drea Plata RN) Abnormal nuclear stress test Alcohol abuse Anemia Anemia Ascending aorta dilatation Asthma CAD (coronary artery disease) CHF (congestive heart failure) Chronic pancreatitis Chronic respiratory failure DMII (diabetes mellitus, type 2) Elevated cholesterol Elevated LFTs Fatty liver GERD (gastroesophageal reflux disease) History of alcohol dependence History of colon polyps History of palpitations HTN (hypertension) Hx of acute pancreatitis Hx of acute renal failure Hx of diabetes with ketoacidosis Hx of non-ST elevation myocardial infarction (NSTEMI) Hyperglycemia IDDM (insulin dependent diabetes mellitus) Metabolic acidosis Non-ischemic cardiomyopathy Obesity hypoventilation syndrome Sleep apnea Family History Family History Father History of heart attack Mother No problems noted. Other No family history of cancer Family history of problems with anesthesia: No Surgical History Surgical History History of cardiac cath History of esophagogastroduodenoscopy (EGD) History of partial hysterectomy Hx of cholecystectomy Hx of colonoscopy Hx of lithotripsy History of Problems with Anesthesia: No Social History Social History Household Members: Children Housing: Apartment Are you a primary day care director to a significant other at home: No Do you presently have visiting nurse or other home services: No Alcohol intake: never Patient Tobacco Use Status: Never used Tobacco Use of substances other than those prescribed or required for medical reasons: No Advance Directives: Yes Advance Directives Information Provided: No Advance Directives on File: Yes Advance Directives Date on File: 07/02/21 service: No Current occupational status: disabled Meds Allergies Allergy/AdvReac Type Severity Reaction Status Date / Time simvastatin [SIMVASTATIN] AdvReac Unknown Unknown Verified 07/11/22 15:24 Home Medications Medication Instructions Recorded Confirmed Last Taken Type albuterol sulfate 90 mcg/actuation 2 puff inhalation Q4-6H PRN 03/14/20 07/22/22 Unknown History aerosol inhaler Shortness Of Breath Or Wheezing carvedilol 3.125 mg tablet 3.125 mg PO BID 03/14/20 07/25/22 07/25/22 History folic acid 1 mg tablet 1 mg PO DAILY 03/14/20 07/22/22 04/25/22 09:00 History calcium carbonate 200 mg calcium 1 tab PO BID PRN Heartburn 07/28/20 07/22/22 07/01/21 History (500 mg) chewable tablet (Calcium Antacid) acetaminophen 650 mg 1 tab PO Q8H PRN fever 07/01/21 07/11/22 Unknown History tablet,extended release baclofen 10 mg tablet 1 tab PO TID PRN muscle spasm 07/01/21 07/22/22 Unknown History fluticasone propionate 110 2 puff inhalation BID 07/01/21 07/22/22 04/25/22 09: 00 History mcg/actuation HFA aerosol inhaler (Flovent HFA) gabapentin 100 mg capsule 1 cap PO BEDTIME 07/01/21 07/22/22 04/24/22 History insulin lispro 100 unit/mL 10 unit subcut DAILY@0730 07/01/21 07/22/22 04/25/22 09:00 History subcutaneous pen (Humalog KwikPen (U-100) Insulin) ketotifen fumarate 0.025 % (0.035 1 drp ophthalmic (eye) BID 07/01/21 07/22/22 04/25/22 09:00 History %) eye drops loratadine 10 mg tablet 10 mg PO DAILY 07/01/21 07/22/22 04/25/22 09:00 History lidocaine 5 % topical patch 1 patch topical DAILY 07/28/21 07/22/22 04/25/22 09:00 History atorvastatin 80 mg tablet (Lipitor) 80 mg PO BEDTIME 08/01/21 07/22/22 04/24/22 History dextrose 1 gram chewable tablet 4 g PO Q15M PRN Hypoglycemia 08/01/21 07/11/22 Unknown History pantoprazole 40 mg tablet,delayed 40 mg PO BID 08/01/21 07/22/22 04/25/22 09:00 History release (Protonix) aspirin 81 mg chewable tablet 81 mg PO DAILY 08/15/21 07/22/22 04/25/22 09:00 History docusate sodium 100 mg capsule 1 cap PO BID 04/26/22 07/22/22 04/25/22 09:00 History insulin glargine 100 unit/mL 24 unit subcut BEDTIME 04/26/22 07/22/22 04/25/22 09:00 History subcutaneous solution (Lantus U-100 Insulin) insulin lispro 100 unit/mL 12 unit subcut DAILY@1430 04/26/22 07/22/22 04/24/22 History subcutaneous pen (Humalog KwikPen (U-100) Insulin) acetaminophen 650 mg 650 mg PO Q12H 06/19/22 07/22/22 Unknown History tablet,extended release (Arthritis Pain Reliever) amlodipine 2.5 mg-celecoxib 200 mg 1 tab PO DAILY 06/19/22 07/22/22 Unknown History tablet Exam Airway Mallampati Class: II (missing back molar) TM Dist: >3cm Neck ROM: Full Heart: rrr Lungs: cta Assessment and Plan Assessment Anesthesia Assessment: Anesthesia Plan Discussed Final Anesthetic Review Family History of Problems with Anesthesia: No History of Problems with Anesthesia: No NPO: Yes ASA Class: III Final Preanesthetic Review: No Changes in Pt Med Stat, Meds/Allgs Chart Reviewed and Consent Obtained/Reviewed Patient Risk: Intermediate Procedure Risk: Intermediate Anesthetic Plan Anesthetic Plan: MAC: Disposition: Standard PACU
[2022-07-25 07:05] VITALS: BMI 34.2
[2022-07-25 07:14] VITALS: BP 128/74; PULSE 88; RESP 18; TEMP 36.6; O2SAT 96
[2022-07-25 07:19] LABS: Glucose, Whole Blood 204 mg/dL (60-115)
[2022-07-25] MEDS: Lactated Ringers 1,000 ML 50 ML IVCONT (07:28)
--- NOTE | 2022-07-25 07:52 | P.HPSUR_ITS ---
Pre-Procedural Eval Section A Date of Service: 07/25/22 The patient is an INPATIENT: No The History & Physical has been completed within 30 days and I have reviewed it.: No Section B Chief Complaint: Screening, FU of polyps, abdominal pain, GERD Relevant Family History (Specify if Yes): No Relevant Social History: None Present Medications: see Short Stay Collaborative assessment Medical History: Significant History (Ascending aorta dilatation Asthma CAD (coronary artery disease) CHF (congestive heart failure) Chronic pancreatitis DMII (diabetes mellitus, type 2) Elevated cholesterol Elevated LFTs Fatty liver GERD (gastroesophageal reflux disease) History of alcohol dependence History of colon polyps HTN (hypert) History of Previous Operations: Relevant previous surgery/procedure and date(s) (History of cardiac cath History of esophagogastroduodenoscopy (EGD) History of partial hysterectomy Hx of cholecystectomy Hx of colonoscopy Hx of lithotripsy) Allergies: Allergies Allergy/AdvReac Type Severity Reaction Status Date / Time simvastatin [SIMVASTATIN] AdvReac Unknown Unknown Verified 07/11/22 15:24 Review of Systems Sugical H&P ROS: Negative: Constitution, Cardiovascular, Respiratory and Gastroi ntestinal Exam Surgical H&P Exam: Normal: Heart, Normal: Lungs, Normal: Extremities and Normal: Abdomen Plan Diagnosis/Plan: Unchanged I have reviewed the history and physical and performed a pertinent physical examination on my patient. No changes have occurred unless specified. Time Spent With Patient Time: Total time managing care of this patient today ____ minutes.
[2022-07-25 08:15] LABS: Anion Gap 17 (12-20); Blood Urea Nitrogen 24 mg/dL (9-16); Calcium 9.4 mg/dL (8.4-10.2); Carbon Dioxide 19 mmol/L (22-29); Chloride 109 mmol/L (96-108); Creatinine Clr Calc Pharmacy 35.5; Estimated Glomerular Filt Rate 34; Glucose Fasting 243 mg/dL (60-99); Potassium 4.3 mmol/L (3.3-5.1); Sodium 141 mmol/L (135-145)
--- NOTE | 2022-07-25 08:33 | W.PM.OPN ---
Operative Note Operative Note Date of Service: 07/25/22 Narrative: COLONOSCOPY TILL CECUM Pre-op diagnosis: Colon cancer screening, follow-up of colon polyps Post-op diagnosis:? Diverticulosis, hemorrhoids Endoscopist:? Migue Breen MD Anesthesia:?MAC Consent: Indications for the procedure and potential complications of bleeding, perforation, reaction to medications and missed diagnosis were discussed with the patient and informed consent was obtained. Instrument: Olympus PCF H 190 L variable stiffness pediatric colonoscope Monitoring: Vital signs and clinical assessment, intermittent blood pressure monitoring, continuous EKG monitoring, Pulse oximetry and Carbon Dioxide monitoring were done throughout the procedure. Please see anesthesia flowsheet. Colon withdrawl time was 14 minutes. Procedure: The patient was placed in the left lateral decubitis position and pre-procedure medications were administered. After a digital rectal examination of the ano-rectum, the video colonoscope was inserted into the rectum and advanced through the colon to the cecum. The colonoscope was slowly withdrawn in a retrograde panoramic fashion and the colon mucosa was carefully examined including a retroflexed view of the rectum. Findings and interventions are described below. Procedure Difficulty: Without difficulty Findings: Terminal Ileum: Not evaluated Cecum: Normal Ascending Colon: Normal Transverse Colon: Normal Descending Colon: Moderate diverticulosis Sigmoid Colon: Moderate diverticulosis Rectum: Normal Ano-rectum: Moderate internal hemorrhoids Colon preparation: Excellent Impression and Post Procedure Diagnosis: Colonoscopy Findings: No polyps were detected Moderate diverticulosis seen in the left colon Moderate hemorrhoids on retroflexed exam. Plan: Patient has an appointment on 08/14/22 in the GI Clinic with Migue Breen M.D. Repeat Colonoscopy in 5 years due to a history of adenomatous colon polyps. Above findings were reviewed with the patient and diverticulosis handouts was given in the discharge area
[2022-07-25 09:03] VITALS: BP 99/36; PULSE 90; RESP 16; TEMP 36.1; O2SAT 98
[2022-07-25 09:18] VITALS: BP 110/52; PULSE 87; RESP 16; TEMP 36.8; O2SAT 100
== END 2022-07-25 09:45 | disposition home or self-care (01) ==
PROVIDERS: Nurse Practitioner; PCP Family Medicine; Visit Provider Internal Medicine Gastroenterology
PROC: 0DJD8ZZ Inspection of Lower Intestinal Tract, Via Natural or Artificial Opening Endoscopic (ICD-10-PCS; CPT 45378; principal; 2022-07-25 08:30)
DX: Z12.11 Encounter for screening for malignant neoplasm of colon (principal); Z86.010 Personal history of colon polyps; K57.30 Diverticulosis of large intestine without perforation or abscess without bleeding; K64.8 Other hemorrhoids; R10.9 Unspecified abdominal pain; K86.1 Other chronic pancreatitis; K76.0 Fatty (change of) liver, not elsewhere classified; K21.9 Gastro-esophageal reflux disease without esophagitis; I11.0 Hypertensive heart disease with heart failure; I50.9 Heart failure, unspecified; I25.10 Atherosclerotic heart disease of native coronary artery without angina pectoris; E78.00 Pure hypercholesterolemia, unspecified; J45.909 Unspecified asthma, uncomplicated; E11.9 Type 2 diabetes mellitus without complications; Z79.4 Long term (current) use of insulin; Z79.82 Long term (current) use of aspirin; Z79.51 Long term (current) use of inhaled steroids; Z79.899 Other long term (current) drug therapy; Z88.8 Allergy status to other drugs, medicaments and biological substances; F10.11 Alcohol abuse, in remission
CPT/HCPCS: G0105; 36415; 80048; 82947

== ENCOUNTER 2022-09-29 16:03 | Outpatient (REF) | payer MEDICARE, MEDICAID, SELFPAY ==
[2022-09-29 16:31] LABS: MANUAL DIFF FLAG NO
[2022-09-29 17:45] LABS: Basophils Percent Auto 0.5 % (0-2); Eosinophils Absolute Auto 0.2 X10*3/uL (0.0-0.4); Eosinophils Percent Auto 2.6 % (0-4); Hematocrit 33.1 % (37.0-47.0); Imm Gran Abs Auto 0.02 X10*3/uL (0.00-0.03); Imm Gran Pct Auto 0.2 % (0.0-0.4); Lymphocytes Absolute Auto 3.3 X10*3/uL (1.2-4.9); Lymphocytes Percent Auto 37.6 % (20-40); Mean Corpuscular HGB Conc 30.2 g/dl (31.0-35.0); Mean Corpuscular Hemoglobin 27.9 pg (27.0-33.0); Mean Corpuscular Volume 92.5 fL (80.0-98.0); Monocytes Absolute Auto 0.6 X10*3/uL (0.1-1.2); Monocytes Percent Auto 6.7 % (2-11); Neutrophils Absolute Auto 4.6 x10*3/uL (2.0-8.3); Neutrophils Percent Auto 52.4 % (45-73); Platelet Count 238 X10*3/uL (160-400); Red Blood Count 3.58 X10*6/uL (4.20-5.50); Red Cell Distribution Width 14.4 % (11.0-16.0); White Blood Count 8.7 X10*3/uL (4.8-10.8)
[2022-09-29 18:09] LABS: Albumin Level 3.6 g/dL (3.5-5.0); Anion Gap 15 (12-20); Blood Urea Nitrogen 21 mg/dL (9-16); Calcium 9.3 mg/dL (8.4-10.2); Carbon Dioxide 21 mmol/L (22-29); Chloride 111 mmol/L (96-108); Estimated Glomerular Filt Rate 28; Magnesium 1.9 mg/dL (1.6-2.6); Phosphorus 3.8 mg/dL (2.7-4.5); Potassium 4.6 mmol/L (3.3-5.1); Sodium 142 mmol/L (135-145)
[2022-09-29 18:13] LABS: Appearance Urine Clear; Color Urine Yellow; Glucose Urine UA Negative (Negative); Leukocyte Esterase Urine Moderate (2+) (Negative); Nitrite Urine Negative (Negative); PH 5.5 (5.0-9.0); UMIC TRIGGER UA YES; Urine Blood Negative (Negative); Urine Ketones Negative (Negative); Urine Protein Negative (Neg-Trace)
[2022-09-29 18:27] LABS: Bacteria Urine None Seen (None Seen); Hyaline Casts Urine 0-2 /LPF (0-2); RBC Urine 0-2 /HPF (0-2)
[2022-09-29 18:32] LABS: Creatinine Urine 52.36 mg/dL; Microalbum/Creatinine Ratio Ur 9.5 ug/mg cr; Total Protein Urine Random < 7 mg/dL (<12)
[2022-10-02 17:24] LABS: Calcium (PTHI) 8.8 mg/dL (8.6-10.4); PTHI 215 pg/mL (16-77)
== END 2022-09-29 16:04 | disposition home or self-care (01) ==
LOC: HO.LAB 16:03
PROVIDERS: Absent Provider Internal Medicine Medical Oncology; PCP Physician Assistant; Visit Provider Internal Medicine Nephrology
DX: E11.22 Type 2 diabetes mellitus with diabetic chronic kidney disease (principal); N18.4 Chronic kidney disease, stage 4 (severe); N25.0 Renal osteodystrophy; R82.90 Unspecified abnormal findings in urine
CPT/HCPCS: 36415; 80051; 81001; 82040; 82043; 82310; 82565; 83735; 83970; 84100; 84156; 84520; 85025; 87086

== ENCOUNTER 2022-10-03 14:12 | Outpatient (REF) | payer MEDICARE, MEDICAID, SELFPAY ==
--- NOTE | ~2022-10-03 | MM_ITS ---
EXAMINATION: MM SCREENING DIGITAL BREAST TOMOSYNTHESIS, BILATERAL CLINICAL INFORMATION: Screening. Asymptomatic. The lifetime risk of breast cancer based on the Tyrer-Cuzick Model is 3%. COMPARISON: Mammography: This study is compared with prior exams dating back to 2017. TECHNIQUE: Digital breast tomosynthesis is performed in both the craniocaudal and mediolateral oblique views along with computer-aided detection (CAD). Synthesized 2D images are generated from the tomosynthesis. FINDINGS: There are scattered areas of fibroglandular density (ACR BI-RADS breast composition Category b). There are no significant masses, abnormal calcifications, or other abnormalities. MM/MM tomosynthesis screening BI IMPRESSION: No mammographic evidence of malignancy. ASSESSMENT: BI-RADS BI-RADS 1 - Negative RECOMMENDATION: Routine annual mammography screening. 1 year F/U This patient's information was entered into a reminder system with a target due date for their next mammogram.
== END 2022-10-03 14:13 | disposition home or self-care (01) ==
LOC: HO.MAMMO 14:12
PROVIDERS: PCP Family Medicine; Visit Provider Family Medicine
DX: Z12.31 Encounter for screening mammogram for malignant neoplasm of breast (principal)
CPT/HCPCS: 77063; 77067

== ENCOUNTER → 2022-10-03 15:00 | Outpatient (BNV) | payer MEDICARE, MEDICAID, SELFPAY | PROVIDERS: PCP Family Medicine; Visit Provider Radiology Diagnostic Radiology | DX: Z12.31 Encounter for screening mammogram for malignant neoplasm of breast (principal) | CPT/HCPCS: 77063; 77067 ==

== ENCOUNTER 2023-07-02 07:09 | Outpatient (AMB) | payer MEDICARE, MEDICAID, SELFPAY ==
--- NOTE | 2023-07-02 07:26 | A.OFFVIS_ITS ---
Intake Vital Signs 07/02/23 07:31 Height 5 ft 1 in Weight 180 lb BMI 34.0 BP 128/64 Blood Pressure Location Lt brachial Position Sitting Pulse 75 Intake Visit Reasons: Abdominal pain Intake Note: Patient follow up for abdominal burning. Patient cc: abdominal discomfort with burning sensation and some nauseas, denies any other GI issues. Senior Relationship Manager Required: Yes Senior Relationship Manager Name: Moses [id number] Accompanied by: Self / Same As Patient Allergies simvastatin [SIMVASTATIN] Adverse Reaction (Unknown, Verified 07/02/23 07:23) Unknown Medication List - Last Reconciled 07/02/23 by Migue Breen MD acetaminophen ER (Arthritis Pain Reliever) 650 mg PO Q12H albuterol sulfate 90 mcg/actuation 2 puffs inhalation Q4-6H PRN amlodipine-celecoxib 2.5-200 mg 1 tab PO DAILY aspirin 81 mg PO DAILY atorvastatin (Lipitor) 80 mg PO BEDTIME baclofen 1 tab PO TID PRN calcium carbonate (Calcium Antacid) 1 tab PO BID PRN carvedilol 3.125 mg PO BID empagliflozin (Jardiance) 10 mg PO DAILY fluticasone propionate 110 mcg/actuation (Flovent HFA) 2 puffs inhalation BID folic acid 1 mg PO DAILY gabapentin 1 cap PO BEDTIME glucagon 3 mg/actuation (Baqsimi) 3 mg intranasal DAILY PRN [insulin zari 30 units miscellaneous DAILY] ketotifen fumarate 0.025%(0.035%) 1 drp ophthalmic (eye) BID loratadine 10 mg PO DAILY ondansetron 4 mg PO Q8H PRN pantoprazole (Protonix) 40 mg PO BID HPI Abdominal pain HPI Details GI CLINIC VISIT FOR THIS 67-YEAR-OLD MACEDONIAN-SPEAKING FEMALE TO DISCUSS ABD CT RESULTS. Pt was hospitalized at [facility] 07/28 to 07/31/21 with rhabdomyolysis and abdominal CT scan showed enteritis. IMAGING STUDIES:? 07/27/[address] SCAN SHOWED: PANCREAS: Changes of chronic pancreatitis. There is dilatation of the pancreatic duct. There are coarse calcifications at the head and body of the pancreas. No acute abnormality. No inflammation around the pancreas. No pseudocyst formation.? 1. No acute abnormality. 2. Changes of chronic pancreatitis but n o acute inflammatory changes of the pancreas. 3. Status post cholecystectomy. Chronic dilatation of the bile duct. No calcified stone in the bile ducts. 4. Diverticulosis of the colon. No acute abnormality of the bowel.? 10/2019 MRI showed: Diffuse dilation of the extrahepatic biliary tree.? No evidence of choledocholithiasis or interval increase. This could be from previous obstruction or after cholecystectomy. Diffuse irregular dilation of the pancreatic duct.? No definate pancreatic mass. This is also unchanged in could reflect chronic pancreatitis. ENDOSCOPIC STUDIES: 07/25/22 COLON SHOWED: Colon preparation: Excellent Colonoscopy Findings: No polyps were detected Moderate diverticulosis seen in the left colon Moderate hemorrhoids on retroflexed exam. Plan: Repeat Colonoscopy in 5 years due to a history of adenomatous colon polyps. 03/18 Colonoscopy showed: Four polyps removed Moderate diverticulosis seen in the left colon Moderate hemorrhoids on retroflexed exam. Plan: Repeat Colonoscopy interval based on path results - in 1-2 years if polyps are adenomatous. Above findings were reviewed with the patient and colon polyps and diverticulosis handouts were given in the discharge area BIOPSIES SHOWED: A.? Colon, ascending #1, polypectomy:? Tubular adenoma; no high grade dysplasia or carcinoma seen. B.? Colon, ascending at 75 cm, polypectomy:? Colonic mucosa with hyperplastic changes.? See comment. C.? Colon, transverse, polypectomy:? Colonic mucosa with prominent lymphoid aggregate; no dysplasia seen. D.? Rectum, polypectomy:? Hyperplastic mucosal polyp with prolapse changes. COMMENT:? The polyp in part B may be an incipient sessile serrated polyp. 10/2019 EGD AND COLONOSCOPY SHOWED: Findings: Cecum ? Two 3-5 mm sessile polyps removed with a cold biopsy Ascending Colon ? A 2.5 x 2 cms polyp in the distal AC at 110 cms raised with 6 cc of normal saline (submucosal injection) and removed piece meal with a hot snare and polyepctomy site marked by timothy ink. Descending Colon ? Moderate diverticulosis Sigmoid Colon ? A 3 - 2.5 x 3 cms hemorrhagic and ulcerated appearing pedunculated polyp at 45 cms removed with a hot snare. Some bleeding noted from the pedicle treated with placement of a hemoclip. Polypectomy site marked with timothy ink. Moderate diverticulosis. Anorectum - Moderate internal hemorrhoids Colon preparation: Good after some irrigation Impression and Post Procedure Diagnosis: Endoscopy Findings: STOMACH: Gastritis DUODENUM: Normal - biopsied to check for celiac sprue Colonoscopy Findings: Four polyps removed (two were 2.5 to 3 cms) Moderate diverticulosis seen in the left colon Moderate hemorrhoids on retroflexed exam. Rectal bleeding is likely from large SC polyp Plan: Repeat Colonoscopy interval based on path results - in 6 to 12 months to check polypectomy sites in the AC and SC if polyps are adenomatous. BIOPSIES SHOWED: A. Small bowel, biopsy: Duodenal mucosa within normal limits. B. Stomach, antrum, biopsy: Antral-type and oxyntic mucosa with moderate chronic inactive inflammation; no Helicobacter organisms seen. C. Cecum, polypectomies: - Tubular adenoma; no high grade dysplas ia or carcinoma seen. - Colonic mucosa with prominent lymphoid aggregate; no dysplasia seen. - Fragments of colonic mucosa within nor mal limits. D. Colon, ascending at 110 cm, polypectomies: - Tubulovillous adenoma (large polyp); n o high grade dysplasia or carcinoma seen. - Fragments of tubulovillous adenoma(s); no high grade dysplasia or carcinoma seen. E. Colon, sigmoid at 45 cm, polypectomy: Inflammatory polyp with prolapse and hyperplastic changes. TODAY'S VISIT: Telephone Division CommanderMoses # [id number] Patient cc: abdominal discomfort with burning sensation and some nauseas, denies any other GI issues. Complains of a sensation of heat and nausea in the stomach - almost every morning. Denies taking Ondansetron - refill sent Appetite is fine and denies constipation. Elevated Cr is sees a Oil Rigger - has FU appt in Jul, 2023. PAST VISIT: Pt is accompanied by her daughter and grand daughter. Appetite is good and denies any abdominal pain or diarrhea She has the sensation that she has diarrhea and does not have diarrhea. Has a BM twice a day with passage of hard stools. Denies having to strain or push. Has been gaining. Feels like she has to have a BM and does unable to have one. Stays in the toilet when she feels she needs to have a BM. Unable to sleep last night due to leg and back pain. Scheduled to see Nephrology on 09/09/21 Appetite is good and has gained some weight over the past month abd pain is getting better with the medication Everything I eat gives me diarrhea Diarrhea when she wakes up in the morning. Denies ETOH abuse. Has'nt weighed herself recently Pt is accompanied by her daughter who interpreted abdominal pain with every solid food, Nauseas, GERD, and diarrhea. Denies any constipation or vomit . Pt complains of 10/10 upper abdominal pain for the past month. Abd pain can radiate into the chest and denies radiation to the back. Pain is intermittent and feels like a tightness Patient denies symptoms of abdominal pain, heartburn. Denies recent change in bowel habits, constipation, black stools or rectal bleeding. Intermittent food related diarrhea Pt complains of diarrhea and denies nausea, vomiting or fever. Every time she tries to eat, she has to stop due to abdominal pain. Has 4 loose BMs a day. Taking yogurt, soft foods and water. Unable to eat bread. Weight loss from 151 to 146 lbs. (wt decreased from 178 lbs 2 yrs ago) ETOH abuse since age 6 yrs and quitted a year. She was drinking 3-6 bottles of Vodka in a?day [facility] Medical History Obesity hypoventilation syndrome Alcohol abuse Chronic respiratory failure Abnormal nuclear stress test History of palpitations Hyperglycemia Metabolic acidosis Elevated LFTs DMII (diabetes mellitus, type 2) Anemia Chronic pancreatitis History of colon polyps GERD (gastroesophageal reflux disease) Non-ischemic cardiomyopathy Ascending aorta dilatation Hx of non-ST elevation myocardial infarction (NSTEMI) History of alcohol dependence Fatty liver Sleep apnea Hx of diabetes with ketoacidosis Elevated cholesterol HTN (hypertension) Asthma CHF (congestive heart failure) CAD (coronary artery disease) Hx of acute renal failure Hx of acute pancreatitis Anemia IDDM (insulin dependent diabetes mellitus) Surgical History History of cardiac cath Hx of cholecystectomy Hx of lithotripsy History of partial hysterectomy Hx of colonoscopy History of esophagogastroduodenoscopy (EGD) Family History Father History of heart attack Mother No problems noted. Other No family history of cancer Social History Household Members: Children Housing: Apartment Are you a primary health care coordinator to a significant other at home: No Do you presently have visiting nurse or other home services: No Alcohol intake: never Patient Tobacco Use Status: Never used Tobacco Advance Directives Date on File: 07/02/21 service: No Current occupational status: disabled Review of Systems Const All systems reviewed & are unremarkable except as noted in HPI and below Physical Exam Const General: no acute distress Nutritional Appearance: obese Orientation/consciousness: patient oriented x3 Limitations: language barrier HEENT Head: Yes normal to inspection Ears: hearing grossly normal bilaterally Eyes Sclerae: sclerae normal Pupils: Equal, round and reactive pupils present Neck Neck: Yes normal visual inspection Chest Chest palpation & inspection: normal inspection of the chest Resp Effort & Inspection: normal respiratory effort Auscultation: clear to auscultation bilaterally Cardio Palpation: normal PMI Rate: regular rate Rhythm: regular rhythm Heart sounds: S1 normal heart sound present, S2 normal heart sound present and no murmurs GI Palpation (GI): Soft to palpation, nontender and No hepatosplenomegaly present Auscultation: normal bowel sounds Rectal Exam - Female: deferred Skin General skin exam: no rashes or lesions noted Neuro General: patient oriented x3, gait normal and moves all extremities Cranial nerves: Yes Equal, round and reactive pupils present Psych Appearance: grossly normal Mental Status: mental status grossly normal Assessment & Plan Assessment & Plan (1) Diverticulosis: Code(s): K57.90 - Diverticulosis of intestine, part unspecified, without perforation or abscess without bleeding (2) Elevated lipase: Code(s): R74.8 - Abnormal levels of other serum enzymes (3) Enteritis: Code(s): K52.9 - Noninfective gastroenteritis and colitis, unspecified (4) Abnormal CT scan, gastrointestinal tract: Code(s): R93.3 - Abnormal findings on diagnostic imaging of other parts of digestive tract (5) Chronic calcific pancreatitis: Code(s): K86.1 - Other chronic pancreatitis Plan 67-year-old [place]bourger-speaking female with hypertension, Lagophthalmos, Obesity, Type 2 DM, obstructive sleep apnea (JUAN DANIEL), stress urinary incontinence, fatty liver followed in GI for anemia (iron studies suggestive of anemia of chronic disease) and history of colon polyps. Pt has a chronically elevated lipase and abd CT scan showed pancreatic calcifications likely due to chronic pancreatitis from long standing ETOH abuse. Pt complains of abdominal pain - worse with eating, nausea, post prandial diarrhea and wt loss - now resolved and pt has been gaining weight. Pts with chronic pancreatitis are at increase risk for pancreatic ca. 06/[address] scan showed chronic calcific pancreatitis (stable). Patient was advised to increase dose of Creon to 2 capsules with each meal (new prescription sent with a higher dose of pancreatic enzymes). 07/25/22 COLON SHOWED: Colon preparation: Excellent Colonoscopy Findings: No polyps were detected Moderate diverticulosis seen in the left colon Moderate hemorrhoids on retroflexed exam. Plan: Repeat Colonoscopy in 5 years due to a history of adenomatous colon polyps. 07/02/23 Complains of a sensation of heat and nausea in the stomach - almost every morning. Denies taking Ondansetron - refill sent. Appetite is fine and denies constipation. Advised to resume pancreatic enzymes for chronic pancreatitis FU in 3 months Orders: Orders Vitamin B12 and Folate Today K86.1 - Other chronic pancreatitis Vitamin D 25-OH Total Today K86.1 - Other chronic pancreatitis Prothrombin Time INR Today K86.1 - Other chronic pancreatitis Prealbumin Today K86.1 - Other chronic pancreatitis Medications: New rhthli-tmzkuroh-wzbabdn 3,000-10,000 -14,000-unit (Zenpep) Take 2 capsules with each meal 2 caps PO TID 30 days 180 caps 3RF K86.1 - Other chronic pancreatitis Changed From ondansetron 4 mg PO Q8H PRN 14 tabs 0RF nausea and vomiting To ondansetron 4 mg PO Q8H 60 days PRN 30 tabs 2RF nausea and vomiting Coding Level of Care Code Est Pt Level 4 (80511) Diagnoses Diverticulosis K57.90 Elevated lipase R74.[address] scan, gastrointestinal tract R93.3 Chronic calcific pancreatitis K86.1 Time Spent (min) 20
[2023-07-02 07:31] VITALS: BP 128/64; PULSE 75; BMI 34.0
== END 2023-07-02 07:58 | disposition home or self-care (01) ==
PROVIDERS: PCP Family Medicine; Visit Provider Internal Medicine Gastroenterology
DX: K57.90 Diverticulosis of intestine, part unspecified, without perforation or abscess without bleeding (principal); R74.8 Abnormal levels of other serum enzymes; K52.9 Noninfective gastroenteritis and colitis, unspecified; R93.3 Abnormal findings on diagnostic imaging of other parts of digestive tract; K86.1 Other chronic pancreatitis
CPT/HCPCS: 99214

== ENCOUNTER → 2023-07-02 07:09 | Outpatient (BNVA) | payer MEDICARE, MEDICAID, SELFPAY | PROVIDERS: PCP Family Medicine; Visit Provider Internal Medicine Gastroenterology | DX: K86.1 Other chronic pancreatitis (principal); K57.90 Diverticulosis of intestine, part unspecified, without perforation or abscess without bleeding; K52.9 Noninfective gastroenteritis and colitis, unspecified; R74.8 Abnormal levels of other serum enzymes; R93.3 Abnormal findings on diagnostic imaging of other parts of digestive tract | CPT/HCPCS: 99212 ==

== ENCOUNTER 2023-07-10 09:55 | Outpatient (REF) | payer MEDICARE, MEDICAID, SELFPAY ==
[2023-07-10 11:55] LABS: Basophils Percent Auto 0.4 % (0-2); Eosinophils Absolute Auto 0.4 X10*3/uL (0.0-0.4); Eosinophils Percent Auto 4.9 % (0-4); Hematocrit 38.6 % (37.0-47.0); Hemoglobin 11.7 g/dl (12.0-16.0); Imm Gran Abs Auto 0.02 X10*3/uL (0.00-0.03); Imm Gran Pct Auto 0.2 % (0.0-0.4); Lymphocytes Absolute Auto 2.8 X10*3/uL (1.2-4.9); Lymphocytes Percent Auto 31.3 % (20-40); MANUAL DIFF FLAG SCAN; Mean Corpuscular HGB Conc 30.3 g/dl (31.0-35.0); Mean Corpuscular Hemoglobin 27.9 pg (27.0-33.0); Mean Corpuscular Volume 92.1 fL (80.0-98.0); Monocytes Absolute Auto 0.5 X10*3/uL (0.1-1.2); Monocytes Percent Auto 5.9 % (2-11); Neutrophils Absolute Auto 5.1 x10*3/uL (2.0-8.3); Neutrophils Percent Auto 57.3 % (45-73); PLT CLUMP 1; Red Blood Count 4.19 X10*6/uL (4.20-5.50); Red Cell Distribution Width 14.6 % (11.0-16.0); SCAN SMEAR FLAG 1
[2023-07-10 12:45] LABS: Ferritin 955 ng/mL (10-250); Free T4 (Free Thyroxine) 0.97 ng/dL (0.71-1.85); Thyroid Stimulating Hormone 0.21 uIU/mL (0.32-4.0); Vitamin D 25-OH Total < 3.5 ng/mL (>30)
[2023-07-10 12:49] LABS: Folate 14.5 ng/mL (> or = 4.0); Vitamin B12 624 pg/mL (200-900)
[2023-07-10 12:56] LABS: Creatinine Urine 113.19 mg/dL; Microalbum/Creatinine Ratio Ur 15.9 ug/mg cr (<30)
[2023-07-10 13:08] LABS: Platelet Count 177 X10*3/uL (160-400)
[2023-07-10 13:09] LABS: Mean Platelet Volume 10.7 fL (9.4-12.3)
[2023-07-10 13:10] LABS: SLIDE REVIEW VERIFIED
[2023-07-10 13:26] LABS: Alanine Aminotransferase 25 U/L (0-31); Alkaline Phosphatase 165 U/L (39-117); Anion Gap 15 (12-20); Aspartate Amino Transferase 26 U/L (5-31); Bilirubin Direct 0.3 mg/dL (0.0-0.5); Bilirubin Total 0.4 mg/dL (0.0-1.0); Blood Urea Nitrogen 28 mg/dL (9-16); Calcium 9.8 mg/dL (8.4-10.2); Carbon Dioxide 19 mmol/L (22-29); Chloride 114 mmol/L (96-108); Cholesterol 117 mg/dL (<200); Estimated Glomerular Filt Rate 31; Glucose Random 88 mg/dL (60-115); HDL Cholesterol 55 mg/dL (>40); Iron 57 mcg/dL (30-160); LDL Cholesterol Calculated 45 mg/dL (<100); Percent Iron Saturation 33 % (15-50); Potassium 5.7 mmol/L (3.3-5.1); Sodium 142 mmol/L (135-145); Total Iron Binding Capacity 172 mcg/dL (228-428); Total Protein 7.7 g/dL (6.5-8.0); Triglycerides 86 mg/dL (<150); Unsaturated Iron Binding 115 ug/dL
== END 2023-07-10 09:56 | disposition home or self-care (01) ==
LOC: HO.HHCL 09:55
PROVIDERS: Visit Provider Family Medicine
DX: E11.22 Type 2 diabetes mellitus with diabetic chronic kidney disease (principal); N18.4 Chronic kidney disease, stage 4 (severe); Z79.4 Long term (current) use of insulin
CPT/HCPCS: 36415; 80048; 80061; 80076; 82043; 82306; 82570; 82607; 82728; 82746; 83540; 84439; 84443; 85025

== ENCOUNTER 2023-07-14 08:39 | Outpatient (REF) | payer MEDICARE, MEDICAID, SELFPAY ==
[2023-07-14 11:34] LABS: MANUAL DIFF FLAG NO
[2023-07-14 11:56] LABS: Basophils Percent Auto 0.3 % (0-2); Eosinophils Absolute Auto 0.4 X10*3/uL (0.0-0.4); Eosinophils Percent Auto 4.6 % (0-4); Hematocrit 36.7 % (37.0-47.0); Hemoglobin 11.2 g/dl (12.0-16.0); Imm Gran Abs Auto 0.04 X10*3/uL (0.00-0.03); Imm Gran Pct Auto 0.4 % (0.0-0.4); Lymphocytes Percent Auto 32.1 % (20-40); Mean Corpuscular HGB Conc 30.5 g/dl (31.0-35.0); Mean Corpuscular Hemoglobin 28.1 pg (27.0-33.0); Mean Platelet Volume 10.5 fL (9.4-12.3); Monocytes Absolute Auto 0.7 X10*3/uL (0.1-1.2); Neutrophils Absolute Auto 5.2 x10*3/uL (2.0-8.3); Neutrophils Percent Auto 55.6 % (45-73); Platelet Count 198 X10*3/uL (160-400); Red Blood Count 3.99 X10*6/uL (4.20-5.50); Red Cell Distribution Width 14.4 % (11.0-16.0); White Blood Count 9.4 X10*3/uL (4.8-10.8)
[2023-07-14 16:45] LABS: Ferritin 1307 ng/mL (10-250)
[2023-07-14 16:47] LABS: Alanine Aminotransferase 29 U/L (0-31); Albumin Level 3.8 g/dL (3.5-5.0); Alkaline Phosphatase 155 U/L (39-117); Anion Gap 13 (12-20); Aspartate Amino Transferase 28 U/L (5-31); Bilirubin Total 0.4 mg/dL (0.0-1.0); Blood Urea Nitrogen 23 mg/dL (9-16); Calcium 9.3 mg/dL (8.4-10.2); Carbon Dioxide 19 mmol/L (22-29); Chloride 115 mmol/L (96-108); Estimated Glomerular Filt Rate 35; Glucose Random 83 mg/dL (60-115); Iron 50 mcg/dL (30-160); Percent Iron Saturation 33 % (15-50); Potassium 4.1 mmol/L (3.3-5.1); Sodium 143 mmol/L (135-145); Total Iron Binding Capacity 153 mcg/dL (228-428); Total Protein 7.2 g/dL (6.5-8.0); Unsaturated Iron Binding 103 ug/dL
== END 2023-07-14 08:40 | disposition home or self-care (01) ==
LOC: HO.HHCL 08:39
PROVIDERS: Visit Provider Internal Medicine Medical Oncology
DX: D64.9 Anemia, unspecified (principal)
CPT/HCPCS: 36415; 80053; 82728; 83540; 85025

== ENCOUNTER 2023-07-31 09:04 | Outpatient (REF) | payer MEDICARE, MEDICAID, SELFPAY ==
[2023-07-31 09:51] LABS: MANUAL DIFF FLAG NO
[2023-07-31 10:45] LABS: Appearance Urine Clear; Color Urine Yellow; Glucose Urine UA 500 mg/dL (Negative); Leukocyte Esterase Urine Small (1+) (Negative); Nitrite Urine Negative (Negative); PH 5.5 (5.0-9.0); UMIC TRIGGER UA YES; Urine Blood Negative (Negative); Urine Ketones Negative (Negative); Urine Protein Negative (Neg-Trace)
[2023-07-31 10:45] LABS: Basophils Absolute Auto 0.1 X10*3/uL (0.0-0.2); Basophils Percent Auto 0.5 % (0-2); Eosinophils Absolute Auto 0.5 X10*3/uL (0.0-0.4); Hematocrit 36.3 % (37.0-47.0); Hemoglobin 11.3 g/dl (12.0-16.0); Imm Gran Abs Auto 0.05 X10*3/uL (0.00-0.03); Imm Gran Pct Auto 0.5 % (0.0-0.4); Lymphocytes Percent Auto 30.8 % (20-40); Mean Corpuscular HGB Conc 31.1 g/dl (31.0-35.0); Mean Corpuscular Hemoglobin 28.4 pg (27.0-33.0); Mean Corpuscular Volume 91.2 fL (80.0-98.0); Mean Platelet Volume 10.6 fL (9.4-12.3); Monocytes Absolute Auto 0.5 X10*3/uL (0.1-1.2); Monocytes Percent Auto 5.4 % (2-11); Neutrophils Absolute Auto 5.6 x10*3/uL (2.0-8.3); Neutrophils Percent Auto 57.8 % (45-73); Platelet Count 207 X10*3/uL (160-400); Red Blood Count 3.98 X10*6/uL (4.20-5.50); Red Cell Distribution Width 14.6 % (11.0-16.0); White Blood Count 9.8 X10*3/uL (4.8-10.8)
[2023-07-31 11:12] LABS: Bacteria Urine None Seen (None Seen); RBC Urine 0-2 /HPF (0-2); Squamous Epithelial Cell Urine 0-2 /HPF (0-2); WBC Urine 0-5 /HPF (0-5)
[2023-07-31 11:26] LABS: Parathyroid Hormone Intact 238.5 pg/mL (8.7-77.1)
[2023-07-31 11:28] LABS: Total Protein Urine Random < 7 mg/dL (<12)
[2023-07-31 11:33] LABS: Anion Gap 13 (12-20); Blood Urea Nitrogen 24 mg/dL (9-16); Calcium 9.5 mg/dL (8.4-10.2); Carbon Dioxide 19 mmol/L (22-29); Chloride 113 mmol/L (96-108); Estimated Glomerular Filt Rate 34; Magnesium 2.3 mg/dL (1.6-2.6); Phosphorus 3.4 mg/dL (2.7-4.5); Potassium 4.1 mmol/L (3.3-5.1); Sodium 141 mmol/L (135-145)
[2023-08-05 14:19] LABS: VITAMIN D (1,25 OH) D3 18 pg/mL; Vit D (1,25-Dihydroxy) Total 45 pg/mL (18-72); Vitamin D (1,25 OH) D2 27 pg/mL
== END 2023-07-31 09:05 | disposition home or self-care (01) ==
LOC: HO.LAB 09:04
PROVIDERS: PCP Family Medicine; Visit Provider Internal Medicine Nephrology
DX: N18.32 Chronic kidney disease, stage 3b (principal); E11.22 Type 2 diabetes mellitus with diabetic chronic kidney disease; N25.0 Renal osteodystrophy
CPT/HCPCS: 36415; 80051; 81001; 82040; 82310; 82565; 82652; 83735; 83970; 84100; 84156; 84520; 85025; 87086

== ENCOUNTER 2023-08-06 09:20 | Outpatient (REF) | payer MEDICARE, MEDICAID, SELFPAY ==
--- NOTE | ~2023-08-06 | XR_ITS ---
EXAMINATION: XR WRIST, RIGHT XR HAND, RIGHT XR LUMBAR SPINE CLINICAL INFORMATION: Chronic pain of right hand and wrist. No improvement with PT. Patient denies injury. Lumbar spine acute bilateral low back pain with sciatica, worsening low back pain. COMPARISON: Lumbar spine 06/19/2019. TECHNIQUE: 3 views right wrist, 4 views right hand, 5 views lumbar spine. FINDINGS: Right Wrist: Ulnar-negative variance. Tdljzzqy-fz-omrffz degenerative changes in the first carpometacarpal joint with joint space narrowing and hypertrophic change. Cystic lucency at the base of the first metacarpal. Vascular calcifications. Right Hand: Digits overlap on the lateral view, limiting evaluation. Mild degenerative changes in first metacarpophalangeal joint. Alignment preserved. Lumbar Spine: Levoscoliosis of the lumbar spine. Atherosclerotic aortoiliac calcifications. Bones are diffusely demineralized. Facet arthritis in the lower lumbar spine. Moderate multilevel lumbar spondylosis with moderate loss of disc space height at L3-L4 and L4-L5. Degenerative changes on very limited images of the hips. XR/XR lumbar spine 2-3V IMPRESSION: 1. Cimyxjtd-cc-vwuphu degenerative changes first carpometacarpal joint. 2. Mild degenerative changes first metacarpophalangeal joint. 3. Moderate multilevel lumbar spondylosis with moderate loss of disc space height at L3-L4 and L4-L5. 4. Facet arthritis in the lower lumbar spine. 5. The bones are diffusely demineralized.
--- NOTE | ~2023-08-06 | XR_ITS ---
EXAMINATION: XR WRIST, RIGHT XR HAND, RIGHT XR LUMBAR SPINE CLINICAL INFORMATION: Chronic pain of right hand and wrist. No improvement with PT. Patient denies injury. Lumbar spine acute bilateral low back pain with sciatica, worsening low back pain. COMPARISON: Lumbar spine 06/19/2019. TECHNIQUE: 3 views right wrist, 4 views right hand, 5 views lumbar spine. FINDINGS: Right Wrist: Ulnar-negative variance. Feinnypr-zb-dtgtye degenerative changes in the first carpometacarpal joint with joint space narrowing and hypertrophic change. Cystic lucency at the base of the first metacarpal. Vascular calcifications. Right Hand: Digits overlap on the lateral view, limiting evaluation. Mild degenerative changes in first metacarpophalangeal joint. Alignment preserved. Lumbar Spine: Levoscoliosis of the lumbar spine. Atherosclerotic aortoiliac calcifications. Bones are diffusely demineralized. Facet arthritis in the lower lumbar spine. Moderate multilevel lumbar spondylosis with moderate loss of disc space height at L3-L4 and L4-L5. Degenerative changes on very limited images of the hips. XR/XR wrist RT 2V IMPRESSION: 1. Ncnaumjv-wf-keijqc degenerative changes first carpometacarpal joint. 2. Mild degenerative changes first metacarpophalangeal joint. 3. Moderate multilevel lumbar spondylosis with moderate loss of disc space height at L3-L4 and L4-L5. 4. Facet arthritis in the lower lumbar spine. 5. The bones are diffusely demineralized.
--- NOTE | ~2023-08-06 | XR_ITS ---
EXAMINATION: XR WRIST, RIGHT XR HAND, RIGHT XR LUMBAR SPINE CLINICAL INFORMATION: Chronic pain of right hand and wrist. No improvement with PT. Patient denies injury. Lumbar spine acute bilateral low back pain with sciatica, worsening low back pain. COMPARISON: Lumbar spine 06/19/2019. TECHNIQUE: 3 views right wrist, 4 views right hand, 5 views lumbar spine. FINDINGS: Right Wrist: Ulnar-negative variance. Apjrdzmh-mq-qmmzna degenerative changes in the first carpometacarpal joint with joint space narrowing and hypertrophic change. Cystic lucency at the base of the first metacarpal. Vascular calcifications. Right Hand: Digits overlap on the lateral view, limiting evaluation. Mild degenerative changes in first metacarpophalangeal joint. Alignment preserved. Lumbar Spine: Levoscoliosis of the lumbar spine. Atherosclerotic aortoiliac calcifications. Bones are diffusely demineralized. Facet arthritis in the lower lumbar spine. Moderate multilevel lumbar spondylosis with moderate loss of disc space height at L3-L4 and L4-L5. Degenerative changes on very limited images of the hips. XR/XR hand RT min 3V IMPRESSION: 1. Ozupewem-gh-gidajv degenerative changes first carpometacarpal joint. 2. Mild degenerative changes first metacarpophalangeal joint. 3. Moderate multilevel lumbar spondylosis with moderate loss of disc space height at L3-L4 and L4-L5. 4. Facet arthritis in the lower lumbar spine. 5. The bones are diffusely demineralized.
== END 2023-08-06 09:21 | disposition home or self-care (01) ==
LOC: HO.HHCX 09:20
PROVIDERS: Visit Provider Family Medicine
DX: M25.531 Pain in right wrist (principal); M54.50 Low back pain, unspecified; G89.29 Other chronic pain
CPT/HCPCS: 72100; 73100; 73130

== ENCOUNTER → 2023-08-25 14:21 | Outpatient (RCR) | payer MEDICARE, MEDICAID, SELFPAY | LOC: HO.OT 03-11 15:03 | PROVIDERS: PCP Family Medicine; Visit Provider Family Medicine | DX: G56.03 Carpal tunnel syndrome, bilateral upper limbs (principal) | CPT/HCPCS: 29130; 97110; 97166; 97760 ==

== ENCOUNTER 2023-10-16 12:57 | Outpatient (REF) | payer MEDICARE, MEDICAID, SELFPAY | END 2023-10-16 12:58 | disposition home or self-care (01) | LOC: HO.MAMMO 12:57 | PROVIDERS: PCP Family Medicine; Visit Provider Physician Assistant | DX: Z12.31 Encounter for screening mammogram for malignant neoplasm of breast (principal) | CPT/HCPCS: 77063; 77067 ==

== ENCOUNTER → 2023-10-16 14:00 | Outpatient (BNV) | payer MEDICARE, MEDICAID, SELFPAY | PROVIDERS: PCP Family Medicine; Visit Provider Radiology Diagnostic Radiology | DX: Z12.31 Encounter for screening mammogram for malignant neoplasm of breast (principal) | CPT/HCPCS: 77063; 77067 ==

== ENCOUNTER 2023-10-22 09:13 | Outpatient (AMB) | payer MEDICARE, MEDICAID, SELFPAY ==
--- NOTE | 2023-10-22 09:21 | MHC.OFFVIS ---
Vital Signs 10/22/23 09:23 Height 5 ft 1 in Weight 185 lb BMI 35.0 BP 103/57 L Blood Pressure Location Lt brachial Position Sitting Pulse 86 Intake Visit Reasons: 3 month follow up Intake Note: Patient follow up Patient cc: acid reflex on and off and some constipation. Denies any other GI issues. Reservoir Engineer Required: Yes Reservoir Engineer Name: [facility] interpeter Accompanied by: Self / Same As Patient Allergies simvastatin [SIMVASTATIN] Adverse Reaction (Unknown, Verified 06/07/24 13:02) Unknown Medication List - Last Reconciled 10/22/23 by Migue Breen MD acetaminophen ER (Arthritis Pain Reliever) 650 mg PO Q12H albuterol sulfate 90 mcg/actuation 2 puffs inhalation Q4-6H PRN amlodipine-celecoxib 2.5-200 mg 1 tab PO DAILY aspirin 81 mg PO DAILY atorvastatin (Lipitor) 80 mg PO BEDTIME baclofen 1 tab PO TID PRN calcium carbonate (Calcium Antacid) 1 tab PO BID PRN carvedilol 3.125 mg PO BID empagliflozin (Jardiance) 10 mg PO DAILY fluticasone propionate 110 mcg/actuation (Flovent HFA) 2 puffs inhalation BID folic acid 1 mg PO DAILY gabapentin 1 cap PO BEDTIME glipizide 10 mg PO QPM [insulin zari 30 units miscellaneous DAILY] ketotifen fumarate 0.025%(0.035%) 1 drp ophthalmic (eye) BID lrpdgw-kapxkiwf-ixktxdb 3,000-10,000 -14,000-unit (Zenpep) 2 caps PO TID 30 days loratadine 10 mg PO DAILY ondansetron 4 mg PO Q8H PRN 60 days pantoprazole (Protonix) 40 mg PO BID HPI HPI 3 month follow up: Details: GI CLINIC VISIT FOR THIS 68-YEAR-OLD COMORAN-SPEAKING FEMALE TO DISCUSS ABD CT RESULTS. Pt was hospitalized at [facility] 07/28 to 07/31/21 with rhabdomyolysis and abdominal CT scan showed enteritis. TODAY'S VISIT: [facility] Brush Head MakerGt Patient cc: acid reflex on and off and some constipation. Denies any other GI issues. Denies abdominal pain. Nausea improved with medications Complains of constipation and has a BM once a day with hard stools PAST VISIT: Patient cc: abdominal discomfort with burning sensation and some nauseas, denies any other GI issues. Pt is accompanied by her daughter and infant grand daughter. Complains of a sensation of heat and nausea in the stomach - almost every morning. Denies taking Ondansetron - refill sent Appetite is fine and denies constipation. Elevated Cr is sees a Program Evaluator - has FU appt in Jul, 2023. Appetite is good and denies any abdominal pain or diarrhea She has the sensation that she has diarrhea and does not have diarrhea. Has a BM twice a day with passage of hard stools. Denies having to strain or push. Has been gaining. Feels like she has to have a BM and does unable to have one. Stays in the toilet when she feels she needs to have a BM. Unable to sleep last night due to leg and back pain. Scheduled to see Nephrology on 09/09/21 Appetite is good and has gained some weight over the past month abd pain is getting better with the medication Everything I eat gives me diarrhea Diarrhea when she wakes up in the morning. Denies ETOH abuse. Has'nt weighed herself recently Pt is accompanied by her daughter who interpreted abdominal pain with every solid food, Nauseas, GERD, and diarrhea. Denies any constipation or vomit . Pt complains of 10/10 upper abdominal pain for the past month. Abd pain can radiate into the chest and denies radiation to the back. Pain is intermittent and feels like a tightness Patient denies symptoms of abdominal pain, heartburn. Denies recent change in bowel habits, constipation, black stools or rectal bleeding. Intermittent food related diarrhea Pt complains of diarrhea and denies nausea, vomiting or fever. Every time she tries to eat, she has to stop due to abdominal pain. Has 4 loose BMs a day. Taking yogurt, soft foods and water. Unable to eat bread. Weight loss from 151 to 146 lbs. (wt decreased from 178 lbs 2 yrs ago) ETOH abuse since age 6 yrs and quitted a year. She was drinking 3-6 bottles of Vodka in a day IMAGING STUDIES:? 07/27/[address] SCAN SHOWED: PANCREAS: Changes of chronic pancreatitis. There is dilatation of the pancreatic duct. There are coarse calcifications at the head and body of the pancreas. No acute abnormality. No inflammation around the pancreas. No pseudocyst formation.? 1. No acute abnormality. 2. Changes of chronic pancreatitis but no acute inflammatory changes of the pancreas. 3. Status post cholecystectomy. Chronic dilatation of the bile duct. No calcified stone in the bile ducts. 4. Diverticulosis of the colon. No acute abnormality of the bowel.? 10/2019 MRI showed:Diffuse dilation of the extrahepatic biliary tree.? No evidence of choledocholithiasis or interval increase. This could be from previous obstruction or after cholecystectomy. Diffuse irregular dilation of the pancreatic duct.? No definate pancreatic mass. This is also unchanged in could reflect chronic pancreatitis. ENDOSCOPIC STUDIES: 07/25/22 COLON SHOWED: Colon preparation: Excellent Colonoscopy Findings: No polyps were detected Moderate diverticulosis seen in the left colon Moderate hemorrhoids on retroflexed exam. Plan: Repeat Colonoscopy in 5 years due to a history of adenomatous colon polyps. 03/18 Colonoscopy showed:Four polyps removed Moderate diverticulosis seen in the left colon Moderate hemorrhoids on retroflexed exam. Plan: Repeat Colonoscopy interval based on path results - in 1-2 years if polyps are adenomatous. Above findings were reviewed with the patient and colon polyps and diverticulosis handouts were given in the discharge area BIOPSIES SHOWED: A.? Colon, ascending #1, polypectomy:? Tubular adenoma; no high grade dysplasia or carcinoma seen. B.? Colon, ascending at 75 cm, polypectomy:? Colonic mucosa with hyperplastic changes.? See comment. C.? Colon, transverse, polypectomy:? Colonic mucosa with prominent lymphoid aggregate; no dysplasia seen. D.? Rectum, polypectomy:? Hyperplastic mucosal polyp with prolapse changes. COMMENT:? The polyp in part B may be an incipient sessile serrated polyp. 10/2019 EGD AND COLONOSCOPY SHOWED:Findings: Cecum ? Two 3-5 mm sessile polyps removed with a cold biopsy Ascending Colon ? A 2.5 x 2 cms polyp in the distal AC at 110 cms raised with 6 cc of normal saline (submucosal injection) and removed piece meal with a hot snare and polyepctomy site marked by timothy ink. Descending Colon ? Moderate diverticulosis Sigmoid Colon ? A 3 - 2.5 x 3 cms hemorrhagic and ulcerated appearing pedunculated polyp at 45 cms removed with a hot snare. Some bleeding noted from the pedicle treated with placement of a hemoclip. Polypectomy site marked with timothy ink. Moderate diverticulosis. Anorectum - Moderate internal hemorrhoids Colon preparation: Good after some irrigation Impression and Post Procedure Diagnosis: Endoscopy Findings: STOMACH: Gastritis DUODENUM: Normal - biopsied to check for celiac sprue Colonoscopy Findings: Four polyps removed (two were 2.5 to 3 cms) Moderate diverticulosis seen in the left colon Moderate hemorrhoids on retroflexed exam. Rectal bleeding is likely from large SC polyp Plan: Repeat Colonoscopy interval based on path results - in 6 to 12 months to check polypectomy sites in the AC and SC if polyps are adenomatous. BIOPSIES SHOWED: A. Small bowel, biopsy: Duodenal mucosa within normal limits. B. Stomach, antrum, biopsy: Antral-type and oxyntic mucosa with moderate chronic inactive inflammation; no Helicobacter organisms seen. C. Cecum, polypectomies: - Tubular adenoma; no high grade dysplasia or carcinoma seen. - Colonic mucosa with prominent lymphoid aggregate; no dysplasia seen. - Fragments of colonic mucosa within normal limits.D. Colon, ascending at 110 cm, polypectomies: - Tubulovillous adenoma (large polyp); no high grade dysplasia or carcinoma seen. - Fragments of tubulovillous adenoma(s); no high grade dysplasia or carcinoma seen.E. Colon, sigmoid at 45 cm, polypectomy: Inflammatory polyp with prolapse and hyperplastic changes. [facility] Medical History Obesity hypoventilation syndrome Alcohol abuse Chronic respiratory failure Abnormal nuclear stress test History of palpitations Hyperglycemia Metabolic acidosis Elevated LFTs DMII (diabetes mellitus, type 2) Anemia Chronic pancreatitis History of colon polyps GERD (gastroesophageal reflux disease) Non-ischemic cardiomyopathy Ascending aorta dilatation Hx of non-ST elevation myocardial infarction (NSTEMI) History of alcohol dependence Fatty liver Sleep apnea Hx of diabetes with ketoacidosis Elevated cholesterol HTN (hypertension) Asthma CHF (congestive heart failure) CAD (coronary artery disease) Hx of acute renal failure Hx of acute pancreatitis Anemia IDDM (insulin dependent diabetes mellitus) Surgical History History of cardiac cath Hx of cholecystectomy Hx of lithotripsy History of partial hysterectomy Hx of colonoscopy History of esophagogastroduodenoscopy (EGD) Family History Father History of heart attack Mother No problems noted. Other No family history of cancer Social History Household Members: Children Housing: Apartment Are you a primary home care manager to a significant other at home: No Do you presently have visiting nurse or other home services: No Alcohol intake: never Patient Tobacco Use Status: Never used Tobacco Use of substances other than those prescribed or required for medical reasons: No Have you been hit, kicked, punched, or otherwise hurt by someone within the past year? If so, by whom?: No Advance Directives Date on File: 07/02/21 Do you have thoughts of harming others: None Do you have a plan to hurt others: No Plan Do you have the means to hurt others: No Recently lost weight without trying: No Eating poorly because of decreased appetite: No Patient : No service: No Current occupational status: disabled Review of Systems Const All systems reviewed & are unremarkable except as noted in HPI and below Physical Exam Vital Signs: Last Vital Signs Pulse 86 10/22/23 09:23 BP 103/57 L 10/22/23 09:23 BMI result Body Mass Index 35.0 Const General: no acute distress Nutritional Appearance: obese Orientation/consciousness: patient oriented x3 Limitations: language barrier HEENT Head: Yes normal to inspection Ears: hearing grossly normal bilaterally Eyes Sclerae: sclerae normal Pupils: Equal, round and reactive pupils present Neck Neck: Yes normal visual inspection Chest Chest palpation & inspection: normal inspection of the chest Resp Effort & Inspection: normal respiratory effort Auscultation: clear to auscultation bilaterally Cardio Palpation: normal PMI Rate: regular rate Rhythm: regular rhythm Heart sounds: S1 normal heart sound present, S2 normal heart sound present and no murmurs GI Palpation (GI): Soft to palpation, nontender and No hepatosplenomegaly present Auscultation: normal bowel sounds Rectal Exam - Female: deferred Skin General skin exam: no rashes or lesions noted Neuro General: patient oriented x3, gait normal and moves all extremities Cranial nerves: Yes Equal, round and reactive pupils present Psych Appearance: grossly normal Mental Status: mental status grossly normal Assessment & Plan Assessment & Plan (1) Diverticulosis: Code(s): K57.90 - Diverticulosis of intestine, part unspecified, without perforation or abscess without bleeding Category: Medical (2) Elevated lipase: Code(s): R74.8 - Abnormal levels of other serum enzymes Category: Medical (3) Normocytic anemia: Code(s): D64.9 - Anemia, unspecified Category: Medical (4) Enteritis: Code(s): K52.9 - Noninfective gastroenteritis and colitis, unspecified Category: Medical (5) Chronic calcific pancreatitis: Code(s): K86.1 - Other chronic pancreatitis Category: Medical (6) Chronic constipation: Code(s): K59.09 - Other constipation Category: Medical Plan 68 year-old Vietnamese-speaking female with hypertension, Lagophthalmos, Obesity, Type 2 DM, obstructive sleep apnea (JUAN DANIEL), stress urinary incontinence, fatty liver followed in GI for anemia (iron studies suggestive of anemia of chronic disease) and history of colon polyps. Pt has a chronically elevated lipase and abd CT scan showed pancreatic calcifications likely due to chronic pancreatitis from long standing ETOH abuse. Pt complains of abdominal pain - worse with eating, nausea, post prandial diarrhea and wt loss - now resolved and pt has been gaining weight. Pts with chronic pancreatitis are at increase risk for pancreatic ca. 06/[address] scan showed chronic calcific pancreatitis (stable). Patient was advised to increase dose of Creon to 2 capsules with each meal (new prescription sent with a higher dose of pancreatic enzymes). 07/25/22 COLON SHOWED: Colon preparation: Excellent Colonoscopy Findings: No polyps were detected Moderate diverticulosis seen in the left colon Moderate hemorrhoids on retroflexed exam. Plan: Repeat Colonoscopy in 5 years due to a history of adenomatous colon polyps. 07/02/23 Complains of a sensation of heat and nausea in the stomach - almost every morning. Denies taking Ondansetron - refill sent. Appetite is fine and denies constipation. Advised to resume pancreatic enzymes for chronic pancreatitis 10/22/23 Nausea improved with medications Complains of constipation and has a BM once a day with hard stools Pt advised to take senna Plus 2 caps at bedtime for constipation. FU in 4 months - scheduled 03/18/24 Medications: New sennosides-docusate sodium 8.6-50 mg (Senna Plus) 2 tab-caps (2 x 8.6-50 mg) PO BEDTIME 120 caps 1RF 60 days K59.09 - Other constipation Coding Level of Care Code Est Pt Level 4 (72582) Diagnoses Diverticulosis K57.90 Elevated lipase R74.8 Normocytic anemia D64.9 Enteritis K52.9 Chronic calcific pancreatitis K86.1 Chronic constipation K59.09 Time Spent (min) 22
[2023-10-22 09:23] VITALS: BP 103/57; PULSE 86; BMI 35.0
== END 2023-10-22 09:48 | disposition home or self-care (01) ==
PROVIDERS: PCP Family Medicine; Visit Provider Internal Medicine Gastroenterology
DX: K57.90 Diverticulosis of intestine, part unspecified, without perforation or abscess without bleeding (principal); R74.8 Abnormal levels of other serum enzymes; D64.9 Anemia, unspecified; K52.9 Noninfective gastroenteritis and colitis, unspecified; K86.1 Other chronic pancreatitis; K59.09 Other constipation
CPT/HCPCS: 99214

== ENCOUNTER → 2023-10-22 09:13 | Outpatient (BNVA) | payer MEDICARE, MEDICAID, SELFPAY | PROVIDERS: PCP Family Medicine; Visit Provider Internal Medicine Gastroenterology | DX: K59.09 Other constipation (principal); K57.90 Diverticulosis of intestine, part unspecified, without perforation or abscess without bleeding; K52.9 Noninfective gastroenteritis and colitis, unspecified; K86.1 Other chronic pancreatitis; R74.8 Abnormal levels of other serum enzymes; D64.9 Anemia, unspecified | CPT/HCPCS: 99212 ==

== ENCOUNTER 2023-11-10 12:35 | Outpatient (REF) | payer MEDICARE, MEDICAID, SELFPAY ==
--- NOTE | ~2023-11-10 | XR_ITS ---
EXAMINATION: XR RIBS, BILATERAL CLINICAL INFORMATION: Bilateral posterior lower rib pain for one week COMPARISON: 04/25/2022 TECHNIQUE: PA chest, 3 views of the bilateral ribs were obtained. FINDINGS: Heart and mediastinum within normal limits. Aortic calcifications. Base atelectasis. No vascular congestion, consolidations or effusions. No displaced rib fractures. XR/XR ribs BI min 4V w CXR1V IMPRESSION: Left base atelectasis. No acute bony pathology.
== END 2023-11-10 12:36 | disposition home or self-care (01) ==
LOC: HO.HHCX 12:35
PROVIDERS: Visit Provider Family Medicine
DX: R07.81 Pleurodynia (principal)
CPT/HCPCS: 71111

== ENCOUNTER 2023-11-10 13:25 | Outpatient (REF) | payer MEDICARE, MEDICAID, SELFPAY ==
--- NOTE | ~2023-11-10 | US_ITS ---
EXAMINATION: US VENOUS WITH DOPPLER UPPER EXTREMITY, LEFT CLINICAL INFORMATION: Left arm swelling and pain COMPARISON: None available. TECHNIQUE: Ultrasound of the upper extremity is performed using compression sonography and color and pulse Doppler flow with assessment of augmentation of flow. There is also imaging and Doppler assessment of the jugular and subclavian veins. Spectral analysis with color-flow imaging is performed. FINDINGS: Respiratory variation, normal compression, and augmented flow are noted throughout the upper extremity including the cephalic, basilic, brachial, cubital and radial and ulnar veins. There is normal flow in the internal jugular, subclavian and axillary veins. There is no visible deep or superficial thrombophlebitis. US/US venous duplex UE LT IMPRESSION: No DVT demonstrated in the left arm.
== END 2023-11-10 13:26 | disposition home or self-care (01) ==
LOC: HO.US 13:25
PROVIDERS: PCP Family Medicine; Visit Provider Family Medicine
DX: R60.0 Localized edema (principal); M79.605 Pain in left leg
CPT/HCPCS: 71111; 93971

== ENCOUNTER 2023-11-19 18:20 | Emergency (ER) | payer MEDICARE, MEDICAID, SELFPAY ==
--- NOTE | ~2023-11-19 | CT_ITS ---
EXAMINATION: CT ABDOMEN AND PELVIS WITHOUT CONTRAST CLINICAL INFORMATION: Abdominal pain COMPARISON: 07/28/2021 TECHNIQUE: Multidetector volumetric imaging was performed from the superior aspect of the liver through the pubic symphysis. Sagittal and coronal reformatted images were obtained on the technologist's workstation. This CT examination was performed using dose optimization techniques as appropriate, variously including the following: *Automated exposure control *Adjustment of mA and/or kV according to patient size (this includes techniques or standardized protocols for targeted exams where dose is matched to indication/reason for exam; i.e. extremities or head) *Use of iterative reconstruction technique DLP: 690 mGy-cm FINDINGS: LUNG BASES: The visualized lung bases are unremarkable. LIVER, GALLBLADDER, AND BILIARY TREE: The liver is normal in size, shape, and attenuation. No focal hepatic lesion or biliary ductal dilatation is present. Clips consistent with cholecystectomy. PANCREAS: Unchanged consistent with sequelae of chronic pancreatitis. SPLEEN: Unremarkable. ADRENAL GLANDS: Unremarkable. KIDNEYS AND URETERS: The kidneys are normal in size, shape, and attenuation. No hydronephrosis, hydroureter, or calculi seen. No perinephric stranding. BLADDER: Unremarkable. GASTROINTESTINAL TRACT: Scattered moderately severe diverticula throughout the colon without acute inflammatory changes. Appendix appears normal. No small bowel pathology. No obstruction. ABDOMINAL WALL: No significant hernia is appreciated. LYMPH NODES: Normal. VASCULAR: Unremarkable. PELVIC VISCERA: Fibroid uterus OSSEOUS STRUCTURES: Avascular necrosis both weightbearing segments of the femoral heads without subchondral collapse CT/CT abdomen pelvis wo IV con IMPRESSION: No acute findings. Chronic findings as above. Fleischner guidelines were followed. Electronically signed by: Moses Shelton MD 11/19/2023 09:29 PM EDT
[2023-11-19 18:26] VITALS: BP 152/65; PULSE 73; RESP 18; TEMP 36.4; O2SAT 98; BMI 35.3
--- NOTE | 2023-11-19 18:26 | ED.ABDPAIN ---
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 Desouza HPI narrative: 68-year-old female Hong [place]er-speaking came in with bilateral flank pain that radiates to the epigastric area for 1 week. In is associated with nausea but no vomiting, had a normal brown stool, yesterday after she wiped had small low blood on the wipe, asking flatus, no history of intra-abdominal surgery, no dysuria, no frequency urination Patient had a normal movement today with no blood. No anticoagulation therapy. Follow-up with Dr. Breen for GI. Related Data Home Medications ?Medication ?Instructions ?Recorded ?Confirmed albuterol sulfate 90 mcg/actuation 2 puff inhalation Q4-6H PRN 03/14/20 10/22/23 aerosol inhaler Shortness Of Breath Or Wheezing carvedilol 3.125 mg tablet 3.125 mg PO BID 03/14/20 10/22/23 folic acid 1 mg tablet 1 mg PO DAILY 03/14/20 10/22/23 calcium carbonate (Calcium Antacid) 1 tab PO BID PRN Heartburn 07/28/20 10/22/23 baclofen 10 mg tablet 1 tab PO TID PRN muscle spasm 07/01/21 10/22/23 fluticasone propionate 110 2 puff inhalation BID 07/01/21 10/22/23 mcg/actuation HFA aerosol inhaler (Flovent HFA) gabapentin 100 mg capsule 1 cap PO BEDTIME 07/01/21 10/22/23 ketotifen fumarate 0.025 % (0.035 1 drp ophthalmic (eye) BID 07/01/21 10/22/23 %) eye drops loratadine 10 mg tablet 10 mg PO DAILY 07/01/21 10/22/23 atorvastatin 80 mg tablet (Lipitor) 80 mg PO BEDTIME 08/01/21 10/22/23 pantoprazole 40 mg tablet,delayed 40 mg PO BID 08/01/21 10/22/23 release (Protonix) aspirin 81 mg chewable tablet 81 mg PO DAILY 08/15/21 10/22/23 acetaminophen 650 mg 650 mg PO Q12H 06/19/22 10/22/23 tablet,extended release (Arthritis Pain Reliever) amlodipine 2.5 mg-celecoxib 200 mg 1 tab PO DAILY 06/19/22 10/22/23 tablet empagliflozin 10 mg tablet 10 mg PO DAILY 01/15/23 10/22/23 (Jardiance) insulin zari 30 unit miscellaneous DAILY 07/02/23 10/22/23 glipizide 5 mg tablet 10 mg PO QPM 07/20/23 10/22/23 Previous Rx's ?Medication ?Instructions ?Recorded ondansetron 4 mg disintegrating 4 mg PO Q8H PRN nausea and 07/02/23 tablet vomiting 60 days #30 tabs sennosides 8.6 mg-docusate sodium 2 tab-cap (2 x 8.6-50 mg) PO 10/22/23 50 mg capsule (Senna Plus) BEDTIME 60 days #120 caps [id number] 2 cap PO TID 30 days #180 caps 10/29/23 3,000-10,000-14,000 unit capsule,delayed rel (Zenpep) omeprazole 20 mg capsule,delayed 20 mg PO DAILY #14 caps 11/20/23 release Allergies Allergy/AdvReac Type Severity Reaction Status Date / Time simvastatin [SIMVASTATIN] AdvReac Unknown Unknown Verified 11/19/23 18:27 Review of Systems Review of Systems All other systems are reviewed and are negative Constitutional: Reports as per HPI and Reports no additional constitutional complaints Eyes: Reports as per HPI and Reports no additional eye complaints Reports system reviewed and no additional complaints, except as documented Cardiovascular: Reports as per HPI and Reports no additional cardiovascular complaints Respiratory: Reports as per HPI and Reports no additional respiratory complaints Gastrointestinal: Reports as per HPI and Reports no additional gastrointestinal complaints Genitourinary: Reports no additional female genitourinary complaints Musculoskeletal: Reports no additional musculoskeletal complaints Skin/Breast: Reports system reviewed and no additional complaints, except as docu Psychiatric: Reports no additional psychiatric complaints Endocrine: Reports no additional endocrine complaints Hematologic/Lymphatic: Reports no additional hematologic/lymphatic complaints Allergic/Immunologic: Reports no additional allergic/immunologic complaints Reports system reviewed and no additional complaints, except as documented and Reports Abnormal speech present PMFSH Past Medical History Medical History Obesity hypoventilation syndrome Alcohol abuse Chronic respiratory failure Abnormal nuclear stress test History of palpitations Hyperglycemia Metabolic acidosis Elevated LFTs DMII (diabetes mellitus, type 2) Anemia Chronic pancreatitis History of colon polyps GERD (gastroesophageal reflux disease) Non-ischemic cardiomyopathy Ascending aorta dilatation Hx of non-ST elevation myocardial infarction (NSTEMI) History of alcohol dependence Fatty liver Sleep apnea Hx of diabetes with ketoacidosis Elevated cholesterol HTN (hypertension) Asthma CHF (congestive heart failure) CAD (coronary artery disease) Hx of acute renal failure Hx of acute pancreatitis Anemia IDDM (insulin dependent diabetes mellitus) Surgical History History of cardiac cath Hx of cholecystectomy Hx of lithotripsy History of partial hysterectomy Hx of colonoscopy History of esophagogastroduodenoscopy (EGD) Family History Family History Father History of heart attack Mother No problems noted. Other No family history of cancer Social History Social History Household Members: Children Housing: Apartment Are you a primary child care group leader to a significant other at home: No Do you presently have visiting nurse or other home services: No Alcohol intake: never Patient Tobacco Use Status: Never used Tobacco Advance Directives: Yes Advance Directives on File: Yes Advance Directives Date on File: 07/02/21 Do you have a plan to hurt others: No Plan service: No Current occupational status: disabled Physical Exam ED Vital Signs: Vital Signs - 24 hr 11/19/23 18:26 11/19/23 21:59 11/19/23 23:35 Temperature 97.5 F 98.2 F 98.6 F Pulse Rate 73 75 71 Respiratory Rate 18 16 18 Blood Pressure 152/65 H 132/88 145/74 H Pulse Oximetry 98 97 99 Oxygen Delivery Method Room Air Room Air Room Air 11/20/23 01:55 Temperature 98.0 F Pulse Rate 82 Respiratory Rate 18 Blood Pressure 149/68 H Pulse Oximetry 98 Oxygen Delivery Method Room Air BMI result Body Mass Index 35.3 Vital signs have been reviewed and appear to be correct. Blood pressure elevated. Heart rate normal. Respiratory rate normal. Temperature normal. Oxygen saturation normal. Appearance: Alert. Oriented X3. No acute distress. Head: Normal external exam. Normocephalic. Atraumatic. No Do signs noted. No raccoon eyes noted Eyes: PERRLA. EOMI. Conjunctiva and sclera normal. Eyelids normal. ENT: TM's Normal. Pharynx normal. Uvula midline. Moist mucous membranes. No trismus noted. No drooling noted. No muffled voice noted. Neck: Normal inspection. Neck supple. FROM. No adenopathy. Thyroid Normal. No meningeal signs. No neck mass noted. CVS: Normal heart rate and rhythm. Heart sound normal. No murmurs noted. Pulses normal throughout. Respiratory: No respiratory distress. Painless inspiration. Breath sounds normal. No wheezes/rales/rhonchi noted. Chest nontender. No accessory muscle usage noted or decreased air movement noted. Abdomen: Soft and nontender. Bowel sounds normal in all 4 quadrants. No distention noted. No organomegaly noted. No visible injury noted. Rectal exam: No visible external hemorrhoids, no palpable internal hemorrhoids, brown stool guaiac negative. Back: No CVA tenderness. Full range of motion noted. Skin: Skin warm and dry. Normal skin color. Normal skin turgor. No rashes/lesions/lacerations noted. Extremities: No lower extremity edema. Extremities exhibit normal range of motion. Extremities nontender. Neuro: Oriented X 3. Cranial nerve exam: II-XII are grossly intact No motor deficit. No sensory deficit. Reflexes normal. Course Course Course Narrative: This is a Rapid Medical Examination (RME) performed by Mickey Joaquin PA-C in triage. Full HPI, ROS, assessment and treatment plan per primary provider in the Main ED. 68 yo female hx of T2DM, chronic pancreatitis, diverticulosis, anemia here for eval of epigastric abdominal pain x1 week. states her abd feels swollen. admits to assoc nausea w/o vomiting. . endorses normal bm however noticed blood on the toilet paper when wiping after BM yesterday and today. no blood in her stool. + obese abd, nd, ttp of epigastric region w/o rebound or guarding. normoactive bs. Plan: labs, CT abd Reevaluation(s) Reevaluation #1: 1. Epigastric pain exam is consistent with gastritis will start the patient on Prilosec and follow-up with GI as instructed. 2. Chronic kidney injury was instructed to follow-up with her renal doctor Dr. Le. 3. CT abdomen and pelvis show no acute intra-abdominal pathology. Time: 01:42 Medical Decision Making Differential Diagnosis Differential Diagnoses: The differential diagnosis associated with the presentation includes (Pancreatitis, gastritis, colitis, diverticulitis, appendicitis, kidney stone, UTI, see ANGELY, electrolyte derangement, severe anemia.) Admission/Observation Consideration of admission/observation: Escalation of care including admission/observation considered Lab Data MDM Lab Attestation statement: I reviewed the patient's lab results. 11/19/23 18:50 11/19/23 18:50 Labs: Lab Results 11/19/23 Range/Units 18:50 WBC 7.9 (4.8-10.8) X10*3/uL RBC 4.16 L (4.20-5.50) X10*6/uL Hgb 11.6 L (12.0-16.0) g/dl Hct 39.2 (37.0-47.0) % MCV 94.2 (80.0-98.0) fL MCH 27.9 (27.0-33.0) pg MCHC 29.6 L (31.0-35.0) g/dl RDW 15.0 (11.0-16.0) % Plt Count 158 L D (160-400) X10*3/uL MPV 10.3 (9.4-12.3) fL Immature Gran % (Auto) 0.3 (0.0-0.4) % Neut % (Auto) 50.1 (45-73) % Lymph % (Auto) 38.2 (20-40) % Kaufman % (Auto) 6.8 (2-11) % Eos % (Auto) 4.2 H (0-4) % Baso % (Auto) 0.4 (0-2) % Lymph # (Auto) 3.0 (1.2-4.9) X10*3/uL Kaufman # (Auto) 0.5 (0.1-1.2) X10*3/uL Eos # (Auto) 0.3 (0.0-0.4) X10*3/uL Baso # (Auto) 0.0 (0.0-0.2) X10*3/uL Abs Immat Gran (auto) 0.02 (0.00-0.03) X10*3/uL Absolute Neuts (auto) 4.0 (2.0-8.3) x10*3/uL Absolute Nucleated RBC 0.000 (0.0-0.012) X10*3/uL Nucleated RBC % (auto) 0.0 (0.0-0.2) /100WBC Sodium 144 (135-145) mmol/L Potassium 4.5 (3.3-5.1) mmol/L Chloride 120 H (96-108) mmol/L Carbon Dioxide 15 L (22-29) mmol/L Anion Gap 14 (12-20) BUN 19 H (9-16) mg/dL Creatinine 2.43 H (0.5-1.4) mg/dL Estim Creat Clear Calc 22.2 Estimated GFR 20 Random Glucose 208 H (60-115) mg/dL Calcium 9.2 (8.4-10.2) mg/dL Magnesium 2.6 (1.6-2.6) mg/dL Total Bilirubin 0.3 (0.0-1.0) mg/dL AST 28 (5-31) U/L ALT 26 (0-31) U/L Alkaline Phosphatase 141 H (39-117) U/L Total Protein 6.9 (6.5-8.0) g/dL Albumin 3.8 (3.5-5.0) g/dL Lipase 4 L (8-78) U/L Independent Interpretation I performed an independent interpretation of an: CT Scan (Abdomen and pelvis:[place] [id number] CT Scan Report Signed Patient: Amy Walker MR#: [id number] : 1955 Acct:[id number] Age/Sex: 68 / F ADM Date: 11/19/23 Loc: HO.ED Attending Dr: Ordering Physician: Criselda Joaquin Date of Service: 11/19/23 ) Radiology Impression Discussion of test interpretation with radiology: I have reviewed the radiologist's reading. Chronic Conditions Patient?s care impacted by: Diabetes and Other (CKD, chronic pancreatitis.) Discharge Plan Discharge Clinical Impression: Gastritis, CKD (chronic kidney disease) Patient Disposition: Home, Self-Care Instructions: Gastritis (ED) Prescriptions: New omeprazole 20 mg capsule,delayed release(DR/EC) 20 mg PO DAILY Qty: 14 0RF No Action Zenpep 3,000-10,000 -14,000-unit capsule,delayed release(DR/EC) 2 cap PO TID 30 Days Qty: 180 3RF Rx Instructions: Take 2 capsules with each meal albuterol sulfate 90 mcg/actuation Hfa Aerosol Inhaler 2 puff INHALATION Q4-6H PRN (Reason: Shortness Of Breath Or Wheezing) carvedilol 3.125 mg Tablet 3.125 mg PO BID folic acid 1 mg Tablet 1 mg PO DAILY calcium carbonate [Calcium Antacid] 200 mg calcium (500 mg) tablet,chewable 1 tab PO BID PRN (Reason: Heartburn) ketotifen fumarate 0.025 % (0.035 %) drops 1 drp ophthalmic (eye) BID baclofen 10 mg tablet 1 tab PO TID PRN (Reason: muscle spasm) gabapentin 100 mg capsule 1 cap PO BEDTIME loratadine 10 mg Tablet 10 mg PO DAILY fluticasone propionate [Flovent HFA] 110 mcg/actuation HFA aerosol inhaler 2 puff inhalation BID Rx Instructions: rinse mouth after use atorvastatin [Lipitor] 80 mg Tablet 80 mg PO BEDTIME pantoprazole [Protonix] 40 mg Tablet,Delayed Release (Dr/Ec) 40 mg PO BID Rx Instructions: admin before meals Jardiance 10 mg Tablet 10 mg PO DAILY glipizide 5 mg tablet 10 mg PO QPM amlodipine-celecoxib 2.5-200 mg tablet 1 tab PO DAILY acetaminophen [Arthritis Pain Reliever] 650 mg tablet extended release 650 mg PO Q12H aspirin 81 mg tablet,chewable 81 mg PO DAILY insulin zari 30 unit miscellaneous DAILY ondansetron 4 mg tablet,disintegrating 4 mg PO Q8H PRN (Reason: nausea and vomiting) 60 Days Qty: 30 2RF Senna Plus 8.6-50 mg capsule 2 tab-cap PO BEDTIME 60 Days Qty: 120 1RF Referrals: Shaun Segura MD [Physician] - Myra Persaud DO [Primary Care Provider] - Yosef Breen MD [Physician] - Interventions: ED Discharge Assessment Last Done: 11/20/23 01:55 Discharge Date/Time: 11/20/23 01:56 Print Language: [place]er
[2023-11-19 18:55] LABS: MANUAL DIFF FLAG NO
[2023-11-19 19:10] LABS: Alanine Aminotransferase 26 U/L (0-31); Albumin Level 3.8 g/dL (3.5-5.0); Alkaline Phosphatase 141 U/L (39-117); Anion Gap 14 (12-20); Aspartate Amino Transferase 28 U/L (5-31); Basophils Percent Auto 0.4 % (0-2); Bilirubin Total 0.3 mg/dL (0.0-1.0); Blood Urea Nitrogen 19 mg/dL (9-16); Calcium 9.2 mg/dL (8.4-10.2); Carbon Dioxide 15 mmol/L (22-29); Chloride 120 mmol/L (96-108); Creatinine Clr Calc Pharmacy 22.2; Eosinophils Absolute Auto 0.3 X10*3/uL (0.0-0.4); Eosinophils Percent Auto 4.2 % (0-4); Estimated Glomerular Filt Rate 20; Glucose Random 208 mg/dL (60-115); Hematocrit 39.2 % (37.0-47.0); Hemoglobin 11.6 g/dl (12.0-16.0); Imm Gran Abs Auto 0.02 X10*3/uL (0.00-0.03); Imm Gran Pct Auto 0.3 % (0.0-0.4); Lipase 4 U/L (8-78); Lymphocytes Percent Auto 38.2 % (20-40); Magnesium 2.6 mg/dL (1.6-2.6); Mean Corpuscular HGB Conc 29.6 g/dl (31.0-35.0); Mean Corpuscular Hemoglobin 27.9 pg (27.0-33.0); Mean Corpuscular Volume 94.2 fL (80.0-98.0); Mean Platelet Volume 10.3 fL (9.4-12.3); Monocytes Absolute Auto 0.5 X10*3/uL (0.1-1.2); Monocytes Percent Auto 6.8 % (2-11); Neutrophils Percent Auto 50.1 % (45-73); Platelet Count 158 X10*3/uL (160-400); Potassium 4.5 mmol/L (3.3-5.1); Red Blood Count 4.16 X10*6/uL (4.20-5.50); Sodium 144 mmol/L (135-145); Total Protein 6.9 g/dL (6.5-8.0); White Blood Count 7.9 X10*3/uL (4.8-10.8)
[2023-11-19 21:59] VITALS: BP 132/88; PULSE 75; RESP 16; TEMP 36.8; O2SAT 97
[2023-11-19 23:35] VITALS: BP 145/74; PULSE 71; RESP 18; TEMP 37; O2SAT 99
[2023-11-20 01:55] VITALS: BP 149/68; PULSE 82; RESP 18; TEMP 36.7; O2SAT 98
== END 2023-11-20 01:56 | disposition home or self-care (01) ==
PROVIDERS: Physician Assistant Medical; Emergency Provider Emergency Medicine; PCP Family Medicine
DX: K29.70 Gastritis, unspecified, without bleeding (principal); E11.22 Type 2 diabetes mellitus with diabetic chronic kidney disease; I12.9 Hypertensive chronic kidney disease with stage 1 through stage 4 chronic kidney disease, or unspecified chronic kidney disease; N18.9 Chronic kidney disease, unspecified; E78.00 Pure hypercholesterolemia, unspecified; J45.909 Unspecified asthma, uncomplicated; Z79.4 Long term (current) use of insulin; Z79.899 Other long term (current) drug therapy; Z79.02 Long term (current) use of antithrombotics/antiplatelets; Z79.82 Long term (current) use of aspirin
CPT/HCPCS: 36415; 74176; 80053; 83690; 83735; 85025; 99283; 99284

== ENCOUNTER 2023-11-23 13:00 | Outpatient (RCR) | payer MEDICARE, MEDICAID, SELFPAY | END 2023-12-29 11:13 | disposition home or self-care (01) | LOC: HO.PT 13:00 | PROVIDERS: PCP Family Medicine; Visit Provider Family Medicine | DX: M54.50 Low back pain, unspecified (principal) | CPT/HCPCS: 97110; 97140; 97161; 97162; 97530 ==

== ENCOUNTER 2023-11-26 16:18 | Outpatient (REF) | payer MEDICARE, MEDICAID, SELFPAY ==
[2023-11-26 18:37] LABS: Anion Gap 13 (12-20); Blood Urea Nitrogen 21 mg/dL (9-16); Calcium 9.1 mg/dL (8.4-10.2); Carbon Dioxide 19 mmol/L (22-29); Chloride 114 mmol/L (96-108); Estimated Glomerular Filt Rate 27; Glucose Random 233 mg/dL (60-115); Potassium 3.6 mmol/L (3.3-5.1); Sodium 142 mmol/L (135-145)
== END 2023-11-26 16:19 | disposition home or self-care (01) ==
LOC: HO.HHCL 16:18
PROVIDERS: Visit Provider Family Medicine
DX: E11.22 Type 2 diabetes mellitus with diabetic chronic kidney disease (principal); N18.4 Chronic kidney disease, stage 4 (severe); Z79.4 Long term (current) use of insulin
CPT/HCPCS: 36415; 80048

== ENCOUNTER 2023-12-07 08:35 | Outpatient (AMB) | payer MEDICARE, MEDICAID, SELFPAY ==
--- NOTE | 2023-12-07 09:09 | MHC.OFFVIS ---
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 Patient reports she feels strong sharp pain at the base of her right thumb. She expresses difficulty with gripping, grasping such as grabbing and opening a bottle of water, opening the doors, doing her hair, or wringing water out of mop after cleaning. She expresses her right hand occasionally feels as if it cramps and locks. She has tried OT for her hands where they provided her with a brace and neither provided relief. She takes Tylenol which does not offer her any relief. 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 The patient reports that she does have a constant, aching pain at the base of the right thumb, but also states that she has occasional episodes of sharp pain in this area as well, that radiates circumferentially about the right wrist. The patient reports that she has tried bracing, occupational therapy, topical pain medication, as well as Tylenol and ibuprofen, to minimal effect. Patient reports no numbness and tingling in the right hand, no other acute complaints or concerns at this time.. [facility] Medical History Obesity hypoventilation syndrome Alcohol abuse Chronic respiratory failure Abnormal nuclear stress test History of palpitations Hyperglycemia Metabolic acidosis Elevated LFTs DMII (diabetes mellitus, type 2) Anemia Chronic pancreatitis History of colon polyps GERD (gastroesophageal reflux disease) Non-ischemic cardiomyopathy Ascending aorta dilatation Hx of non-ST elevation myocardial infarction (NSTEMI) History of alcohol dependence Fatty liver Sleep apnea Hx of diabetes with ketoacidosis Elevated cholesterol HTN (hypertension) Asthma CHF (congestive heart failure) CAD (coronary artery disease) Hx of acute renal failure Hx of acute pancreatitis Anemia IDDM (insulin dependent diabetes mellitus) Surgical History History of cardiac cath Hx of cholecystectomy Hx of lithotripsy History of partial hysterectomy Hx of colonoscopy History of esophagogastroduodenoscopy (EGD) Family History Father History of heart attack Mother No problems noted. Other No family history of cancer Social History Household Members: Children Housing: Apartment Are you a primary post acute care registered nurse to a significant other at home: No Do you presently have visiting nurse or other home services: No Alcohol intake: never Patient Tobacco Use Status: Never used Tobacco Advance Directives Date on File: 07/02/21 service: No Current occupational status: disabled Review of Systems Const All systems reviewed & are unremarkable except as noted in HPI and below Physical Exam Extrem Other: Patient is alert, oriented, and in no acute distress. Neuro: Patient reports normal sensation of the tips of all digits of the right hand at this time Vascular: Cap refill brisk Pain: Patient reports significant tenderness to palpation about the basal joint of the right thumb No tenderness to palpation of the 1st dorsal compartment of the radial styloid No tenderness to palpation about the MCP joint of the right thumb Patient reports discomfort in the basal joint with range of motion of the right thumb ROM: Patient is able to make a closed fist and extend all digits fully Patient is able to flex and extend the right thumb fully, but does express that this is painful. Skin: No lacerations or abrasions. General: No ecchymosis, erythema, or evidence of infection. Positive CMC grind on the right Negative Hero test No ligamentous laxity about the MCP joint of the right thumb Psych: Appears grossly normal Affect normal Attitude cooperative Office Procedures Joint Injection/Aspiration Joint Injection/Aspiration Primary Site: right thumb Injected: 40 mg of, DepoMedrol, with 0.5 mL of and 1% plain lidocaine Procedure: The patient tolerated the procedure well, but had some pain with the injection and there was some relief with the local anesthesia Coding - Small Joint Procedure code (CPT) selection complete Results Reviewed Results Reviewed: X-rays obtained on 08/06/2023 and independently reviewed by , Arnulfo Gutierrez PA-C, demonstrate significant degenerative changes of the 1st CMC joint of the right hand. No acute fracture or bony abnormality noted. Assessment & Plan Assessment & Plan (1) Osteoarthritis of first carpometacarpal joint of right hand: Code(s): M18.11 - Unilateral primary osteoarthritis of first carpometacarpal joint, right hand Category: Medical Plan 1. Arthritis of 1st CMC joint of right hand Pain ongoing for approximately 1.5 years A educated the patient about this condition I educated the patient about potential treatment options, including conservative, nonoperative, and operative treatments. The patient would like to proceed with a steroid injection at this time. The risks and benefits of a steroid injection including but not limited to risk of damage to blood vessels, nerve, tendon, infection, skin bleaching, persistent or worsening pain, and failure to improve symptoms were discussed with the patient and they wish to proceed with the steroid injection. Once consent was obtained the skin over the dorsum of the right basal joint was aseptically prepped. The joint was then injected with a combination of 1 mL of 40 mg/ml Depo-Medrol and 1% plain Lidocaine. The patient appears to have tolerated the procedure well and with no complications. She had good early relief before leaving clinic today. She knows that they may not have another steroid injection into this joint for least 4 months. Patient will follow-up as needed with any acute concerns Coding Level of Care Code New Pt Level 3 (21201) Diagnoses Osteoarthritis of first carpometacarpal joint of right hand M18.11 CPT Codes Coding - 01274 - Small joint: 00162 - Small Joint ([id number])
== END 2023-12-07 10:18 | disposition home or self-care (01) ==
PROVIDERS: PCP Family Medicine
DX: M18.11 Unilateral primary osteoarthritis of first carpometacarpal joint, right hand (principal)
CPT/HCPCS: 20600; 99203

== ENCOUNTER → 2023-12-07 08:35 | Outpatient (BNVA) | payer MEDICARE, MEDICAID, SELFPAY | PROVIDERS: PCP Family Medicine | DX: M18.11 Unilateral primary osteoarthritis of first carpometacarpal joint, right hand (principal) | CPT/HCPCS: 20600; 99202; J1010 ==

== ENCOUNTER 2024-01-14 08:43 | Outpatient (REF) | payer MEDICARE, MEDICAID, SELFPAY ==
--- NOTE | ~2024-01-14 | US_ITS ---
EXAMINATION: US ABDOMEN COMPLETE CLINICAL INFORMATION: Follow-up fatty liver. COMPARISON: CT abdomen and pelvis 11/19/2023. Renal ultrasound 07/28/2021. Ultrasound abdomen limited 07/02/2021. MRI abdomen 11/11/2019. TECHNIQUE: Real-time imaging of the abdominal viscera. Technically limited study secondary to body habitus. FINDINGS: PANCREAS: Pancreas obscured by bowel gas not visualized. ABDOMINAL AORTA: The proximal, mid, and distal segments are normal in caliber. INFERIOR VENA CAVA: Visualized portions are normal. LIVER: Enlarged right lobe 17.1 cm The liver contour is normal. Increased echogenicity of the liver parenchyma, this can be seen in the setting of hepatic steatosis or liver parenchymal disease. No focal hepatic lesion. There is no intrahepatic biliary duct dilatation seen. GALLBLADDER: Surgically absent. COMMON BILE DUCT: Normal in caliber measuring 1.1 cm in diameter. RIGHT KIDNEY: Right renal cyst 2 cm. Echogenic renal cortex suggest chronic medical renal disease. No hydronephrosis or renal calculi. The kidney measures 10.8 cm in maximum dimension. LEFT KIDNEY: Echogenic renal cortex suggest chronic medical renal disease. No hydronephrosis. No renal calculi or focal parenchymal lesions. The kidney measures 11.6 cm in maximum dimension. SPLEEN: Normal. The spleen measures 8.5 cm in maximum dimension. FREE FLUID: None. US/US abdomen complete IMPRESSION: 1. Increased echogenicity of the liver parenchyma, this can be seen in the setting of hepatic steatosis or liver parenchymal disease. 2. Simple right renal cyst 2 cm. These are commonly benign, no follow-up imaging is indicated. 3. Echogenic renal cortices suggest chronic medical renal disease. Electronically signed by: Hill Manzo MD 02/14/2024 06:52 PM [facility]
== END 2024-01-14 08:44 | disposition home or self-care (01) ==
LOC: HO.US 08:43
PROVIDERS: PCP Family Medicine; Visit Provider Family Medicine
DX: K76.0 Fatty (change of) liver, not elsewhere classified (principal)
CPT/HCPCS: 76700

== ENCOUNTER 2024-03-15 11:58 | Outpatient (REF) | payer MEDICARE, MEDICAID, SELFPAY ==
[2024-03-15 12:32] LABS: MANUAL DIFF FLAG NO
[2024-03-15 12:39] LABS: Basophils Percent Auto 0.3 % (0-2); Eosinophils Absolute Auto 0.3 X10*3/uL (0.0-0.4); Eosinophils Percent Auto 2.9 % (0-4); Hematocrit 37.4 % (37.0-47.0); Hemoglobin 11.3 g/dl (12.0-16.0); Imm Gran Abs Auto 0.04 X10*3/uL (0.00-0.03); Imm Gran Pct Auto 0.4 % (0.0-0.4); Lymphocytes Absolute Auto 4.2 X10*3/uL (1.2-4.9); Lymphocytes Percent Auto 38.4 % (20-40); Mean Corpuscular HGB Conc 30.2 g/dl (31.0-35.0); Mean Corpuscular Hemoglobin 27.8 pg (27.0-33.0); Mean Corpuscular Volume 91.9 fL (80.0-98.0); Mean Platelet Volume 9.9 fL (9.4-12.3); Monocytes Absolute Auto 0.7 X10*3/uL (0.1-1.2); Monocytes Percent Auto 6.3 % (2-11); Neutrophils Absolute Auto 5.7 x10*3/uL (2.0-8.3); Neutrophils Percent Auto 51.7 % (45-73); Platelet Count 195 X10*3/uL (160-400); Red Blood Count 4.07 X10*6/uL (4.20-5.50); Red Cell Distribution Width 14.7 % (11.0-16.0)
[2024-03-15 12:56] LABS: Appearance Urine Clear; Color Urine Yellow; Glucose Urine UA 500 mg/dL (Negative); Leukocyte Esterase Urine Trace (Negative); Nitrite Urine Negative (Negative); PH 5.5 (5.0-9.0); UMIC TRIGGER UA YES; Urine Blood Negative (Negative); Urine Ketones Negative (Negative); Urine Protein Negative (Neg-Trace)
[2024-03-15 12:59] LABS: Bacteria Urine None Seen (None Seen); Hyaline Casts Urine 0-2 /LPF (0-2); RBC Urine 0-2 /HPF (0-2); Squamous Epithelial Cell Urine 0-2 /HPF (0-2); WBC Urine 0-5 /HPF (0-5)
[2024-03-15 13:09] LABS: Parathyroid Hormone Intact 369.7 pg/mL (8.7-77.1)
[2024-03-15 13:15] LABS: Albumin Level 3.8 g/dL (3.5-5.0); Anion Gap 12 (12-20); Blood Urea Nitrogen 23 mg/dL (9-16); Calcium 8.9 mg/dL (8.4-10.2); Carbon Dioxide 20 mmol/L (22-29); Chloride 112 mmol/L (96-108); Estimated Glomerular Filt Rate 27; Magnesium 2.1 mg/dL (1.6-2.6); Potassium 3.7 mmol/L (3.3-5.1); Sodium 140 mmol/L (135-145)
[2024-03-15 13:30] LABS: Vitamin D 25-OH Total 15.3 ng/mL (>30)
[2024-03-15 13:32] LABS: Ferritin 566 ng/mL (10-250)
[2024-03-15 13:37] LABS: Creatinine Urine 50.03 mg/dL; Microalbumin Urine < 5.0 mg/L; Total Protein Urine Random < 7 mg/dL (<12)
== END 2024-03-15 11:59 | disposition home or self-care (01) ==
LOC: HO.LAB 11:58
PROVIDERS: PCP Family Medicine; Referring Provider Internal Medicine Medical Oncology; Visit Provider Internal Medicine Nephrology
DX: N18.32 Chronic kidney disease, stage 3b (principal); D64.9 Anemia, unspecified
CPT/HCPCS: 36415; 80051; 81001; 82040; 82043; 82306; 82310; 82565; 82570; 82728; 83735; 83970; 84100; 84156; 84520; 85025; 87086

== ENCOUNTER 2024-03-18 07:44 | Outpatient (AMB) | payer MEDICARE, MEDICAID, SELFPAY ==
--- NOTE | 2024-03-18 07:58 | MHC.OFFVIS ---
Vital Signs 03/18/24 08:01 Height 5 ft 1 in Weight 187 lb BMI 35.3 BP 129/61 Blood Pressure Location Lt brachial Position Sitting Pulse 80 Intake Visit Reasons: Chronic calcific pancreatitis Intake Note: Patient 4 month follow up for Chronic calcific pancreatitis Patient cc: constipation, patient never received the last med prescribed for constipation, denies any other GI issues. Mechanical Artist Required: No Mechanical Artist Name: Juventino [id number] Accompanied by: Self / Same As Patient Allergies simvastatin [SIMVASTATIN] Adverse Reaction (Unknown, Verified 03/18/24 07:58) Unknown Medication List - Last Reconciled 03/18/24 by Migue Breen MD acetaminophen ER (Arthritis Pain Reliever) 650 mg PO Q12H albuterol sulfate 90 mcg/actuation 2 puffs inhalation Q4-6H PRN amlodipine-celecoxib 2.5-200 mg 1 tab PO DAILY aspirin 81 mg PO DAILY atorvastatin (Lipitor) 80 mg PO BEDTIME baclofen 1 tab PO TID PRN budesonide-formoterol 160-4.5 mcg/actuation 2 puffs inhalation DAILY calcitriol 0.25 mcg PO DAILY calcium carbonate (Calcium Antacid) 1 tab PO BID PRN carvedilol 3.125 mg PO BID empagliflozin (Jardiance) 10 mg PO DAILY fluticasone propionate 110 mcg/actuation (Flovent HFA) 2 puffs inhalation BID folic acid 1 mg PO DAILY gabapentin 1 cap PO BEDTIME glipizide 10 mg PO QPM [insulin zari 30 units miscellaneous DAILY] ketotifen fumarate 0.025%(0.035%) 1 drp ophthalmic (eye) BID anoyim-lldablwo-fyolkkl 3,000-10,000 -14,000-unit (Zenpep) 2 caps PO TID 60 days loratadine 10 mg PO DAILY omeprazole 20 mg PO DAILY ondansetron 4 mg PO Q8H PRN 60 days pantoprazole (Protonix) 40 mg PO BID sennosides-docusate sodium 8.6-50 mg (Senna Plus) 2 tab-caps (2 x 8.6-50 mg) PO BEDTIME 60 days HPI HPI Chronic calcific pancreatitis: Details: GI CLINIC VISIT FOR THIS 68-YEAR-OLD TANZANIAN-SPEAKING FEMALE TO DISCUSS ABD CT RESULTS. Pt was hospitalized at [facility] 07/28 to 07/31/21 with rhabdomyolysis and abdominal CT scan showed enteritis. TODAY'S VISIT: Telephone Lead Pourer, Juventino Patient cc: constipation, patient never received the last med prescribed for constipation. Lab results reviewed Continues to have constipation - has a BM daily with passage of hard stools Denies abdominal pain. Nausea improved with medications Sees Dr Bhakta for renal disease Reports she was diagnosed with DM 6 years ago PAST VISIT: Patient cc: acid reflex on and off and some constipation. Denies any other GI issues. Patient cc: abdominal discomfort with burning sensation and some nauseas, denies any other GI issues. Pt is accompanied by her daughter and infant grand daughter. Complains of a sensation of heat and nausea in the stomach - almost every morning. Denies taking Ondansetron - refill sent Appetite is fine and denies constipation. Elevated Cr is sees a Circuit Manager - has FU appt in Jul, 2023. Appetite is good and denies any abdominal pain or diarrhea She has the sensation that she has diarrhea and does not have diarrhea. Has a BM twice a day with passage of hard stools. Denies having to strain or push. Has been gaining. Feels like she has to have a BM and does unable to have one. Stays in the toilet when she feels she needs to have a BM. Unable to sleep last night due to leg and back pain. Scheduled to see Nephrology on 09/09/21 Appetite is good and has gained some weight over the past month abd pain is getting better with the medication Everything I eat gives me diarrhea Diarrhea when she wakes up in the morning. Denies ETOH abuse. Has'nt weighed herself recently Pt is accompanied by her daughter who interpreted abdominal pain with every solid food, Nauseas, GERD, and diarrhea. Denies any constipation or vomit . Pt complains of 10/10 upper abdominal pain for the past month. Abd pain can radiate into the chest and denies radiation to the back. Pain is intermittent and feels like a tightness Patient denies symptoms of abdominal pain, heartburn. Denies recent change in bowel habits, constipation, black stools or rectal bleeding. Intermittent food related diarrhea Pt complains of diarrhea and denies nausea, vomiting or fever. Every time she tries to eat, she has to stop due to abdominal pain. Has 4 loose BMs a day. Taking yogurt, soft foods and water. Unable to eat bread. Weight loss from 151 to 146 lbs. (wt decreased from 178 lbs 2 yrs ago) ETOH abuse since age 6 yrs and quitted a year. She was drinking 3-6 bottles of Vodka in a day IMAGING STUDIES:? 07/27/[address] SCAN SHOWED: PANCREAS: Changes of chronic pancreatitis. There is dilatation of the pancreatic duct. There are coarse calcifications at the head and body of the pancreas. No acute abnormality. No inflammation around the pancreas. No pseudocyst formation.? 1. No acute abnormality. 2. Changes of chronic pancreatitis but no acute inflammatory changes of the pancreas. 3. Status post cholecystectomy. Chronic dilatation of the bile duct. No calcified stone in the bile ducts. 4. Diverticulosis of the colon. No acute abnormality of the bowel.? 10/2019 MRI showed:Diffuse dilation of the extrahepatic biliary tree.? No evidence of choledocholithiasis or interval increase. This could be from previous obstruction or after cholecystectomy. Diffuse irregular dilation of the pancreatic duct.? No definate pancreatic mass. This is also unchanged in could reflect chronic pancreatitis. ENDOSCOPIC STUDIES: 07/25/22 COLON SHOWED: Colon preparation: Excellent Colonoscopy Findings: No polyps were detected Moderate diverticulosis seen in the left colon Moderate hemorrhoids on retroflexed exam. Plan: Repeat Colonoscopy in 5 years due to a history of adenomatous colon polyps. 03/18 Colonoscopy showed:Four polyps removed Moderate diverticulosis seen in the left colon Moderate hemorrhoids on retroflexed exam. Plan: Repeat Colonoscopy interval based on path results - in 1-2 years if polyps are adenomatous. Above findings were reviewed with the patient and colon polyps and diverticulosis handouts were given in the discharge area BIOPSIES SHOWED: A.? Colon, ascending #1, polypectomy:? Tubular adenoma; no high grade dysplasia or carcinoma seen. B.? Colon, ascending at 75 cm, polypectomy:? Colonic mucosa with hyperplastic changes.? See comment. C.? Colon, transverse, polypectomy:? Colonic mucosa with prominent lymphoid aggregate; no dysplasia seen. D.? Rectum, polypectomy:? Hyperplastic mucosal polyp with prolapse changes. COMMENT:? The polyp in part B may be an incipient sessile serrated polyp. 10/2019 EGD AND COLONOSCOPY SHOWED:Findings: Cecum ? Two 3-5 mm sessile polyps removed with a cold biopsy Ascending Colon ? A 2.5 x 2 cms polyp in the distal AC at 110 cms raised with 6 cc of normal saline (submucosal injection) and removed piece meal with a hot snare and polyepctomy site marked by timothy ink. Descending Colon ? Moderate diverticulosis Sigmoid Colon ? A 3 - 2.5 x 3 cms hemorrhagic and ulcerated appearing pedunculated polyp at 45 cms removed with a hot snare. Some bleeding noted from the pedicle treated with placement of a hemoclip. Polypectomy site marked with timothy ink. Moderate diverticulosis. Anorectum - Moderate internal hemorrhoids Colon preparation: Good after some irrigation Impression and Post Procedure Diagnosis: Endoscopy Findings: STOMACH: Gastritis DUODENUM: Normal - biopsied to check for celiac sprue Colonoscopy Findings: Four polyps removed (two were 2.5 to 3 cms) Moderate diverticulosis seen in the left colon Moderate hemorrhoids on retroflexed exam. Rectal bleeding is likely from large SC polyp Plan: Repeat Colonoscopy interval based on path results - in 6 to 12 months to check polypectomy sites in the AC and SC if polyps are adenomatous. BIOPSIES SHOWED: A. Small bowel, biopsy: Duodenal mucosa within normal limits. B. Stomach, antrum, biopsy: Antral-type and oxyntic mucosa with moderate chronic inactive inflammation; no Helicobacter organisms seen. C. Cecum, polypectomies: - Tubular adenoma; no high grade dysplasia or carcinoma seen. - Colonic mucosa with prominent lymphoid aggregate; no dysplasia seen. - Fragments of colonic mucosa within normal limits.D. Colon, ascending at 110 cm, polypectomies: - Tubulovillous adenoma (large polyp); no high grade dysplasia or carcinoma seen. - Fragments of tubulovillous adenoma(s); no high grade dysplasia or carcinoma seen.E. Colon, sigmoid at 45 cm, polypectomy: Inflammatory polyp with prolapse and hyperplastic changes. COUNTS INCLUDE 234 BEDS AT THE [facility] Medical History Obesity hypoventilation syndrome Alcohol abuse Chronic respiratory failure Abnormal nuclear stress test History of palpitations Hyperglycemia Metabolic acidosis Elevated LFTs DMII (diabetes mellitus, type 2) Anemia Chronic pancreatitis History of colon polyps GERD (gastroesophageal reflux disease) Non-ischemic cardiomyopathy Ascending aorta dilatation Hx of non-ST elevation myocardial infarction (NSTEMI) History of alcohol dependence Fatty liver Sleep apnea Hx of diabetes with ketoacidosis Elevated cholesterol HTN (hypertension) Asthma CHF (congestive heart failure) CAD (coronary artery disease) Hx of acute renal failure Hx of acute pancreatitis Anemia IDDM (insulin dependent diabetes mellitus) Surgical History History of cardiac cath Hx of cholecystectomy Hx of lithotripsy History of partial hysterectomy Hx of colonoscopy History of esophagogastroduodenoscopy (EGD) Family History Father History of heart attack Mother No problems noted. Other No family history of cancer Social History Household Members: Children Housing: Apartment Are you a primary director of career resources to a significant other at home: No Do you presently have visiting nurse or other home services: No Alcohol intake: never Patient Tobacco Use Status: Never used Tobacco Advance Directives Date on File: 07/02/21 service: No Current occupational status: disabled Review of Systems Const All systems reviewed & are unremarkable except as noted in HPI and below Physical Exam Vital Signs: Last Vital Signs Pulse 80 03/18/24 08:01 BP 129/61 03/18/24 08:01 BMI result Body Mass Index 35.3 Const General: healthy appearing and no acute distress Nutritional Appearance: obese Orientation/consciousness: patient oriented x3 Limitations: language barrier HEENT Head: Yes normal to inspection Ears: hearing grossly normal bilaterally Eyes Sclerae: sclerae normal Pupils: Equal, round and reactive pupils present Neck Neck: Yes normal visual inspection Chest Chest palpation & inspection: normal inspection of the chest Resp Effort & Inspection: normal respiratory effort Auscultation: clear to auscultation bilaterally Cardio Palpation: normal PMI Rate: regular rate Rhythm: regular rhythm Heart sounds: S1 normal heart sound present, S2 normal heart sound present and no murmurs GI Inspection: Yes obesity Palpation (GI): Soft to palpation, nontender and No hepatosplenomegaly present Auscultation: normal bowel sounds Rectal Exam - Female: deferred Skin General skin exam: no rashes or lesions noted Neuro General: patient oriented x3, gait normal and moves all extremities Cranial nerves: Yes Equal, round and reactive pupils present Psych Appearance: grossly normal Mental Status: mental status grossly normal Assessment & Plan Assessment & Plan (1) Diverticulosis: Code(s): K57.90 - Diverticulosis of intestine, part unspecified, without perforation or abscess without bleeding Category: Medical (2) Normocytic anemia: Code(s): D64.9 - Anemia, unspecified Category: Medical (3) Enteritis: Code(s): K52.9 - Noninfective gastroenteritis and colitis, unspecified Category: Medical (4) Abnormal CT scan, gastrointestinal tract: Code(s): R93.3 - Abnormal findings on diagnostic imaging of other parts of digestive tract Category: Medical (5) Chronic calcific pancreatitis: Code(s): K86.1 - Other chronic pancreatitis Category: Medical (6) Chronic constipation: Code(s): K59.09 - Other constipation Category: Medical Plan 68 year-old Malay-speaking female with hypertension, Lagophthalmos, Obesity, Type 2 DM, obstructive sleep apnea (JUAN DANIEL), stress urinary incontinence, fatty liver followed in GI for anemia (iron studies suggestive of anemia of chronic disease) and history of colon polyps. Pt has a chronically elevated lipase and abd CT scan showed pancreatic calcifications likely due to chronic pancreatitis from long standing ETOH abuse. Pt complains of abdominal pain - worse with eating, nausea, post prandial diarrhea and wt loss - now resolved and pt has been gaining weight. Pts with chronic pancreatitis are at increase risk for pancreatic ca. 06/[address] scan showed chronic calcific pancreatitis (stable). Patient was advised to increase dose of Creon to 2 capsules with each meal (new prescription sent with a higher dose of pancreatic enzymes). 07/25/22 COLON SHOWED: Colon preparation: Excellent Colonoscopy Findings: No polyps were detected Moderate diverticulosis seen in the left colon Moderate hemorrhoids on retroflexed exam. Plan: Repeat Colonoscopy in 5 years due to a history of adenomatous colon polyps. 07/02/23 Complains of a sensation of heat and nausea in the stomach - almost every morning. Denies taking Ondansetron - refill sent. Appetite is fine and denies constipation. Advised to resume pancreatic enzymes for chronic pancreatitis 03/18/24 Patient cc: constipation, patient never received the last med prescribed for constipation. Lab results reviewed Continues to have constipation - has a BM daily with passage of hard stools Advised to start Linzess 145 mcg daily for constipation Stop Omeprazole and continue taking Pantoprazole 40 mg twice daily for GERD FU in 4 months Medications: New linaclotide (Linzess) 145 mcg PO DAILY 30 days 30 caps 3RF K59.09 - Other constipation Discontinued omeprazole Discontinued Reason: Patient Completed Course 20 mg PO DAILY 14 caps 0RF Coding Level of Care Code Est Pt Level 3 (58575) Diagnoses Diverticulosis K57.90 Normocytic anemia D64.[address] scan, gastrointestinal tract R93.3 Chronic calcific pancreatitis K86.1 Chronic constipation K59.09 Time Spent (min) 20
[2024-03-18 08:01] VITALS: BP 129/61; PULSE 80; BMI 35.3
== END 2024-03-18 08:47 | disposition home or self-care (01) ==
PROVIDERS: PCP Family Medicine; Visit Provider Internal Medicine Gastroenterology
DX: K57.90 Diverticulosis of intestine, part unspecified, without perforation or abscess without bleeding (principal); D64.9 Anemia, unspecified; K52.9 Noninfective gastroenteritis and colitis, unspecified; R93.3 Abnormal findings on diagnostic imaging of other parts of digestive tract; K86.1 Other chronic pancreatitis; K59.09 Other constipation
CPT/HCPCS: 99213

== ENCOUNTER → 2024-03-18 07:44 | Outpatient (BNVA) | payer MEDICARE, MEDICAID, SELFPAY | PROVIDERS: PCP Family Medicine; Visit Provider Internal Medicine Gastroenterology | DX: K86.1 Other chronic pancreatitis (principal); K57.90 Diverticulosis of intestine, part unspecified, without perforation or abscess without bleeding; D64.9 Anemia, unspecified; K52.9 Noninfective gastroenteritis and colitis, unspecified; R93.3 Abnormal findings on diagnostic imaging of other parts of digestive tract; K59.09 Other constipation | CPT/HCPCS: 99212 ==

== ENCOUNTER 2024-06-06 08:33 | Outpatient (AMB) | payer MEDICARE, MEDICAID, SELFPAY ==
[2024-06-06 08:35] VITALS: BMI 35.5
--- NOTE | 2024-06-06 08:35 | MHC.OFFVIS ---
Vital Signs 06/06/24 08:35 Height 5 ft 1 in Weight 188 lb BMI 35.5 Intake Visit Reasons: OV - Right Thumb CMC OA - Last Inj 12/07/23 Intake Note: Amy is a 68 year old right hand dominant female who presents today for a follow up of her Right Thumb CMC joint OA. At her last visit on 12/07/23 the right thumb was injected. Patient reports that this injection was helpful and she would like to repeat injection today. Linux System Admin Required: Yes Linux System Admin Language: Labeler Services: Linux System Admin Present Linux System Admin Name: Reese GARLAND LM Allergies simvastatin [SIMVASTATIN] Adverse Reaction (Unknown, Verified 03/18/24 07:58) Unknown HPI HPI OV - Right Thumb CMC OA - Last Inj 12/07/23: Details: Amy is a 68 year old right hand dominant female who presents today for a follow up of her Right Thumb CMC joint OA. At her last visit on 12/07/23 the right thumb was injected. Patient reports that this injection was helpful and she would like to repeat injection today. [facility] Medical History Obesity hypoventilation syndrome Alcohol abuse Chronic respiratory failure Abnormal nuclear stress test History of palpitations Hyperglycemia Metabolic acidosis Elevated LFTs DMII (diabetes mellitus, type 2) Anemia Chronic pancreatitis History of colon polyps GERD (gastroesophageal reflux disease) Non-ischemic cardiomyopathy Ascending aorta dilatation Hx of non-ST elevation myocardial infarction (NSTEMI) History of alcohol dependence Fatty liver Sleep apnea Hx of diabetes with ketoacidosis Elevated cholesterol HTN (hypertension) Asthma CHF (congestive heart failure) CAD (coronary artery disease) Hx of acute renal failure Hx of acute pancreatitis Anemia IDDM (insulin dependent diabetes mellitus) Surgical History History of cardiac cath Hx of cholecystectomy Hx of lithotripsy History of partial hysterectomy Hx of colonoscopy History of esophagogastroduodenoscopy (EGD) Family History Father History of heart attack Mother No problems noted. Other No family history of cancer Social History Household Members: Children Housing: Apartment Are you a primary care assistant to a significant other at home: No Do you presently have visiting nurse or other home services: No Alcohol intake: never Patient Tobacco Use Status: Never used Tobacco Advance Directives Date on File: 07/02/21 service: No Current occupational status: disabled Review of Systems Const All systems reviewed & are unremarkable except as noted in HPI and below Physical Exam Vital Signs: BMI result Body Mass Index 35.5 Extrem Other: Patient is alert, oriented, and in no acute distress. Neuro: Patient reports normal sensation of the tips of all digits of the right hand at this time Vascular: Cap refill brisk Pain: Patient reports significant tenderness to palpation about the basal joint of the right thumb No tenderness to palpation of the 1st dorsal compartment of the radial styloid No tenderness to palpation about the MCP joint of the right thumb Patient reports discomfort in the basal joint with range of motion of the right thumb ROM: Patient is able to make a closed fist and extend all digits fully Patient is able to flex and extend the right thumb fully, but does express that this is painful. Skin: No lacerations or abrasions. General: No ecchymosis, erythema, or evidence of infection. Positive CMC grind on the right Negative Hero test No ligamentous laxity about the MCP joint of the right thumb Psych: Appears grossly normal Affect normal Attitude cooperative Assessment & Plan Assessment & Plan (1) Osteoarthritis of first carpometacarpal joint of right hand: Code(s): M18.11 - Unilateral primary osteoarthritis of first carpometacarpal joint, right hand Category: Medical Plan 1. Arthritis of 1st CMC joint of right hand Pain ongoing for approximately 1.5 years A educated the patient about this condition I educated the patient about potential treatment options, including conservative, nonoperative, and operative treatments. The patient would like to proceed with a steroid injection at this time. The risks and benefits of a steroid injection including but not limited to risk of damage to blood vessels, nerve, tendon, infection, skin bleaching, persistent or worsening pain, and failure to improve symptoms were discussed with the patient and they wish to proceed with the steroid injection. Once consent was obtained the skin over the dorsum of the right basal joint was aseptically prepped. The joint was then injected with a combination of 1 mL of 40 mg/ml Depo-Medrol and 1% plain Lidocaine. The patient appears to have tolerated the procedure well and with no complications. She had good early relief before leaving clinic today. She knows that they may not have another steroid injection into this joint for least 4 months. Patient will follow-up as needed with any acute concerns Coding Level of Care Code Est Pt Level 3 (77347) Diagnoses Osteoarthritis of first carpometacarpal joint of right hand M18.11
--- OUTSIDE RECORDS SUMMARY | 2024-06-06 08:50 | XMS_ITS | Encounter Summary ---
Author Organization [employer] Address [address] [place] [address] Care Team Providers Care Art History Professor Name Role Phone Myra Persaud DO Primary Care Provider [phone] Elsi Nolasco PharmD Unavailable [phone] Reason for Visit * Reason Onset Date Comments Recall Appt. 05/12/2024 Encounter Details Date Type Department Care Team ([facility] st Contact Info) Description 05/12/2024 Telephone [facility] [address] [place] [address] Myra Persaud DO [address] [place] [address] Recall Appt. Social History Tobacco Use Types Packs/Day Years Used Date Smoking Tobacco: Never Passive Smoke Exposure: Never Smokeless Tobacco: Never Alcohol Use Standard Drinks/Week Comments Not Currently 0 (1 standard drink = 0.6 oz pur e alcohol) Depression Answer Date Recorded Patient Health Questionnaire-9 Score 1 08/03/2023 Patient Health Questionnaire-9 Score 1 08/03/2023 Last PHQ-9: Questionnaire Data Not on file 0 08/03/2023 Housing Stability Answer Date Recorded What is your housing situation today? I have rosi guan 07/17/[address] you li ve. Do you have problems with any of the following? None of the above 07/17/2023 Food Insecurity Answer Date Recorded Within the past 12 months, y ou worried that your food would run out before you got money to buy more: Never True 07/17/2023 Within the past 12 months,th e food you bought just didn't last and you didn't have enough money to get more: Never True Transportation Answer Date Recorded In the past 12 months, has l ack of transportation kept you from medical appts, meetings, work or from getting things needed for daily living? No 07/17/2023 Utilities Answer Date Recorded In the past 12 months, has t he electric, gas, oil or water company threatened to shut off services in your home? No 07/17/2023 Depression Answer Date Recorded Patient Health Questionnaire-2 Score 1 08/03/2023 Comments Unknown Sex and Gender Information Value Date Recorded Sex Assigned at Female 01/27/2022 10:20 AM EDT Legal Sex Female 10:20 AM EDT Gender Identity Female 01/27/2022 10:20 AM EDT Sexual Orientation Straight 01/27/2022 10 :20 AM EDT documented as of this encounter Miscellaneous Notes * Telephone Encounter - Hedy Cohen MA - 05/12/2024 10:27 AM EST Spoke with patient schedule Office Visit DM 06/27/24 at 10:30am. Mailed appt. Letter. documented in this encounter Plan of Treatment Upcoming Encounters Date Type Department Care Team (Late st Contact Info) Description 06/22/2024 9:00 AM EDT Medication Management [facility] [address] [place] [id number] Elsi Nolasco, PharmD [address] [place] [address] 06/27/2024 10:30 AM EDT Office Visit [facility] [address] [place] [id number] Myra Persaud DO [address] [place] [address] documented as of this encounter Goals Goal Patient Goal Type Associated Problems Recent Progress Patient-Stated? Author Hemoglobin A1c < 7.5 Result Component 6.8(12/26/202 4 9:27 AM EST) No Shady Slade PharmD Record your blood sugar as directed Result Component No Elsi Nolasco PharmD documented as of this encounter Visit Diagnoses Not on filedocumented in this encounter Additional Health Concerns Assessment Noted Time PHQ-9 Depression Total Score: 1 08/03/19 24 10:16 AM EDT documented as of this encounter Care Teams Art History Professor Relationship Specialty Start Date End Date Myra Persaud DO [address] [place] [address] PCP - General Family Medicine 10/18/13 Elsi Nolasco PharmD [address] [place] [address] Pharmacist Internal Medicine 11/24/22 documented as of this encounter
--- OUTSIDE RECORDS SUMMARY | 2024-06-06 08:50 | XMS_ITS | Encounter Summary ---
Author Organization [employer] [facility] Address [address] 7t [place] [address] Care Team Providers Care Modern Greek Studies Professor Name Role Phone Myra Persaud DO Primary Care Provider [phone] Elsi Nolasco PharmD Unavailable [phone] Reason for Visit * Reason Onset Date Comments PT1 08/10/2023 Encounter Details Date Type Department Care Team ([facility] st Contact Info) Description 08/10/2023 Telephone [facility] MEDICINE [address] [place] [address] Myra Persaud DO [address] [place] [address] PT1 Social History Tobacco Use Types Packs/Day Years [...] encounter Miscellaneous Notes * Telephone Encounter - Melida Velarde - 08/13/2023 11:56 AM EDT Patient will recieve approval / denial letter via mail. PT-1 Request [id number] Authorized [facility] PT-1 Request [id number] Pending - [facility] PT-1 Request [id number] Pending - [facility] [address] PT-1 Request [id number] Authorized [facility] * Telephone Encounter - Laureen Max - 08/10/2023 9:09 AM EDT 1.)Patient calling requesting PT1 Home Address verified: Y/N: Yes Provider name or facility name: [facility] Facility Address: [address] [place] [address] Escort needed: Y/N: No Do you have a wheelchair: Y/N: No If yes- Manual or electric: no Visits: 2-3 visit a month 2.)Patient calling requesting PT1 Home Address verified: Y/N: Yes Provider name or facility name: [facility] Facility Address: [address] [place] [address] Escort needed: Y/N: No Do you have a wheelchair: Y/N: No If yes- Manual or electric: no Visits: 2-3 visit a month 3.)Patient calling requesting PT1 Home Address verified: Y/N: Yes Provider name or facility name: [facility] Facility Address: [address] [place] [address] Dr [address] Floor, [place] [address] Escort needed: Y/N: No Do you have a wheelchair: Y/N: No If yes- Manual or electric: no Visits: 2-3 visit a month 4.)Patient calling requesting PT1 Home Address verified: Y/N: Yes Provider name or facility name: [facility] Facility Address: [address], [address] [place] [address] Escort needed: Y/N: No Do you have a wheelchair: Y/N: No If yes- Manual or electric: no Visits: 2-3 visit a month documented in this encounter Plan of Treatment Upcoming Encounters Date Type Department Care Team (Late st Contact Info) Description 06/22/2024 9:00 AM EDT Medication Management [facility] MEDICINE [address] [place] [address] Elsi Nolasco, PharmD [address] [place] [address] 06/27/2024 10:30 AM EDT Office Visit [facility] MED[facility]INE [address] [place] [address] Myra Persaud DO [address] [place] [address] documented as of this encounter Goals Goal Patient Goal Type Associated Problems Recent Progress Patient-Stated? Author Hemoglobin A1c < 7.5 Result Component 6.8( 9:27 AM EST) No Shady Slade PharmD Record your blood sugar as directed Result Component No Elsi Nolasco PharmD documented as of this encounter Visit Diagnoses Not on filedocumented in this encounter Additional Health Concerns Assessment Noted Time PHQ-9 Depression Total Score: 1 08/03/19 24 10:16 AM EDT documented as of this encounter Care Teams Modern Greek Studies Professor Relationship Specialty Start Date End Date Myra Persaud DO [address] [place], [place] [phone] PCP - General Family Medicine 10/18/13 Elsi Nolasco PharmD [address] [place] [address] Pharmacist Internal Medicine 11/24/22 documented as of this encounter
--- OUTSIDE RECORDS SUMMARY | 2024-06-06 08:50 | XMS_ITS | Encounter Summary ---
Author Organization [facility] Address [address] 7[address] [place] [address] Care Team Providers Care Voice Writing Reporter Name Role Phone Cori Myra Primary Care Provider + [phone] Elsi Nolasco PharmD Unavailable [phone] Encounter Details Date Type Department Care Team (Latest Contact Info) Description 05/12/2024 Travel Social History Tobacco Use Types Packs/Day Years [...] AM EDT documented as of this encounter Plan of Treatment Upcoming Encounters Date Type Department Care Team (Late st Contact Info) Description 06/22/2024 9:00 AM EDT Medication Management [facility] MEDICINE [address] [place] [phone] Elsi Nolasco PharmD [address] [place] [phone] 06/27/2024 10:30 AM EDT Office Visit [facility] [address] [place] [address] Myra Persaud DO [address] [place] [address] documented as of this encounter Goals Goal [...] documented as of this encounter Care Teams Voice Writing Reporter Relationship Specialty Start Date End Date Myra Persaud DO [address] [place] [address] [phone] PCP - General Family Medicine 10/18/13 Elsi Nolasco, PharmD [address] [place] [address] [phone] Pharmacist Internal Medicine 11/24/22 documented as of this encounter
--- OUTSIDE RECORDS SUMMARY | 2024-06-06 08:51 | XMS_ITS | Encounter Summary ---
Author Organization [facility] Address [address] [place] [address] 7t [place] [address] Care Team Providers Care Solution Designer Name Role Phone Myra Persaud DO Primary Care Provider [phone] Shady Slade PharmD Unavailable Unavail able Elsi Nolasco PharmD Unavailable Encounter Details Date Type Department Care Team (Late st Contact Info) Description 04/09/2022 Orders Only [facility] MEDICINE [address] [place] [address] Patricia Hogan LPN Social History Tobacco Use Types Packs/Day Years Used Date Smoking Tobacco: Never Assessed Comments Unknown Sex and Gender Information Value [...] Description 06/22/2024 9:00 AM EDT Medication Management [facility]INE [address] [place] [address] Puia, Elsi, PharmD [address] [place] [address] 06/27/2024 10:30 AM EDT Office Visit [facility] MED[facility]INE [address] [place] [address] Myra Persaud DO [address] [place] [address] documented as of this encounter Visit Diagnoses Not on filedocumented in this encounter Care Teams Solution Designer Relationship Specialty Start Date End Date Myra Persaud DO [address] [place] [address] PCP - General Family Medicine 10/18/13 Shady Slade, RakeshD [address] [place] [phone] Pharmacist Internal Medicine 06/09/22 11/23/22 Elsi Nolasco PharmD [address] [place] [address] Pharmacist Internal Medicine 11/24/22 documented as of this encounter
--- OUTSIDE RECORDS SUMMARY | 2024-06-06 08:51 | XMS_ITS | Encounter Summary ---
Author Organization [employer] Address [address] [place] [address] Care Team Providers Care Electronic Organ Technician Name Role Phone Cori Myra Primary Care Provider [phone] Elsi Nolasco PharmD Unavailable [phone] Encounter Details Date Type Department Care Team ([facility] Contact Info) Description 09/09/2023 Orders Only [facility] [address] [place] [address] JcBonyn, OD [address] [place] [address] Presbyopia (Primary Dx) Social History Tobacco Use Types Packs/Day Years [...] Description 06/22/2024 9:00 AM EDT Medication Management [facility] [address] [place] [phone] Elsi Nolasco, PharmD [address] [place] [phone] 06/27/2024 10:30 AM EDT Office Visit [facility] [address] [place] [address] Myra Persaud DO [address] [place] [address] documented as of this encounter Goals Goal Patient Goal Type Associated Problems Recent Progress Patient-Stated? Author Hemoglobin A1c < 7.5 Result Component 6.8( 9:27 AM EST) No OsiellogShady lópez, PharmD Record your blood sugar as directed Result Component No Elsi Nolasco PharmD documented as of this encounter Visit Diagnoses Diagnosis Presbyopia- Primary documented in this encounter Additional Health Concerns Assessment Noted Time PHQ-9 Depression Total Score: 1 08/03/19 24 10:16 AM EDT documented as of this encounter Care Teams Electronic Organ Technician Relationship Specialty Start Date End Date Myra Persaud DO [address] [place] [address] PCP - General Family Medicine 10/18/13 Elsi Nolasco, Amina [address] [place] [address] [phone] Pharmacist Internal Medicine 11/24/22 documented as of this encounter
--- OUTSIDE RECORDS SUMMARY | 2024-06-06 08:51 | XMS_ITS | Encounter Summary ---
Author Organization [facility] Address [address] [facility] 7t [place] [address] Care Team Providers Care Pediatric Lpn Name Role Phone Myra Persaud DO Primary Care Provider [phone] Elsi Nolasco PharmD Unavailable [phone] Reason for Visit * Reason Comments Med Refill Encounter Details Date Type Department Care Team ([facility] st Contact Info) Description 05/21/2024 Refill [facility] [address] [place] [address] Myra Persaud DO [address] [place] [address] Acute gastritis, presence of bleeding unspecified, unspecified gastritis type Social History Tobacco Use Types Packs/Day Years [...] Description 06/22/2024 9:00 AM EDT Medication Management [facility] [address] [place] [address] Elsi Nolasco, PharmD [address] [place] [phone] 06/27/2024 10:30 AM EDT Office Visit [facility] [address] [place] [phone] Myra Persaud DO [address] [place] [address] documented as of this encounter Goals Goal Patient Goal Type Associated Problems Recent Progress Patient-Stated? Author Hemoglobin A1c < 7.5 Result Component 6.8( 9:27 AM EST) No Shady Slade PharmDanielle Record your blood sugar as directed Result Component No Elsi Nolasco PharmDanielle documented as of this encounter Visit Diagnoses Diagnosis Acute gastritis, presence of bleeding unspecified, unspecified gastritis type documented in this encounter Additional Health Concerns Assessment Noted Time PHQ-9 Depression Total Score: 1 08/03/19 24 10:16 AM EDT documented as of this encounter Care Teams Pediatric Lpn Relationship Specialty Start Date End Date Myra Persaud DO [address] [place] [address] PCP - General Family Medicine 10/18/13 Elsi Nolasco PharmD [address] [place] [address] Pharmacist Internal Medicine 11/24/22 documented as of this encounter
--- OUTSIDE RECORDS SUMMARY | 2024-06-06 08:51 | XMS_ITS | Clinical Summary ---
Author Organization [employer] Address [address] [place] [address] Care Team Providers Care [place] Worker Name Role Phone Cori Myra Primary Care Provider [phone] Elsi Nolasco PharmD Unavailable [phone] Allergies Active Allergy Reactions Criticality Noted Date Comments Simvastatin 07/11/2010 Other reaction(s): elevated LFTs Medications amLODIPine (Norvasc) 2.5 MG tablet Take 2.5 mg by mouth Once daily. 023 Active albuterol 108 (90 Base) MCG/ACT inhaler INHALE 2 PUFFS EVERY 4 TO 6 HOURS NEEDED FOR COUGH, WHEEZING, OR SHORTNESS OF BREATH 18 g 11 023 Active glucagon (Baqsimi Two Pack) 3 MG/DOSE nasal powderIndications: Type 2 diabetes mellitus with stage 4 chronic kidney disease, with long-term current use of insulin ([facility]) Administer 3 mg via 1 device into the nostril for hypoglycemia with loss of consciousness. If no response after 15 minutes administer an additional dose via 2nd device into other nostril. 2 each 1 023 Active ketorolac (Acular) 0.5 % ophthalmic solution 024 Active carvedilol (Coreg) 3.125 MG tablet TAKE 1 TABLET BY MOUTH TWICE DAILY IN THE MORNING AND IN THE EVENING WITH FOOD 180 tablet 3 024 Active docusate sodium (Colace) 100 MG capsuleIndications :Chronic constipation TAKE 1 CAPSULE BY MOUTH TWICE DAILY IN THE MORNING AND IN THE EVENING 180 capsule 3 024 Active Diclofenac Sodium 1 % gelIndications:Bill n Apply 2 g topically if needed in the morning, at noon, in the evening, and at bedtime (pain). 150 g 3 Active insulin pen needle (UltiGuard SafePack Pen Needle) 32G x 4 mm miscIndications:Ty pe 2 diabetes mellitus with stage 4 chronic kidney disease, with long-term current use of insulin ([facility]) Use as instructed three times daily for insulin injections 100 each 11 Active Eye Itch Relief 0.035 % solution INSTILL 1 DROP IN EACH EYE TWICE DAILY Active Zenpep 3000-08250 units capsule delayed-release particles capsule TAKE 2 CAPSULES BY MOUTH THREE TIMES DAILY WITH MEALS Active calcitriol (Rocaltrol) 0.25 MCG capsule TAKE 1 CAPSULE BY MOUTH EVERY OTHER DAY IN THE MORNING Active ergocalciferol (Vitamin D2) 1.25 MG (09942 UT) capsule TAKE 1 CAPSULE BY MOUTH EVERY MONTH Active TRUEplus Lancets 33G miscIndications:Ty pe 2 diabetes mellitus without complications ([facility]) TEST BLOOD SUGAR THREE TIMES DAILY 100 each 11 Active glucose blood (FREESTYLE LITE) test stripIndications:T ype 2 diabetes mellitus without complications ([facility]) TEST BLOOD SUGAR THREE TIMES DAILY 100 strip 11 Active acetaminophen (Tylenol 8 Hour) 650 MG ER tablet TAKE 1 TABLET BY MOUTH EVERY 8 HOURS NEEDED FOR PAIN 40 tablet 2 Active baclofen (Lioresal) 10 MG tabletIndications: Muscle spasm TAKE 1 TABLET BY MOUTH THREE TIMES DAILY NEEDED FOR MUSCLE SPASMS OR FOR PAIN 60 tablet 3 Active ondansetron ODT (Zofran-ODT) 4 MG disintegrating tabletIndications: Acute gastritis, presence of bleeding unspecified, unspecified gastritis type Take 2 tablets (8 mg) by mouth every 12 (twelve) hours if needed for nausea or vomiting. 20 tablet Active simethicone (Mylicon,Gas-X) 180 MG capsuleIndications :Acute gastritis, presence of bleeding unspecified, unspecified gastritis type Take 1 capsule (180 mg) by mouth every 8 (eight) hours if needed for flatulence. 30 capsule Active clindamycin (Cleocin) 300 MG capsule Take 2 tabs (600mg) 1 hour prior to dental procedure 2 capsule 3 024 Active folic acid (Folvite) 1 MG tablet TAKE 1 TABLET BY MOUTH EVERY MORNING 30 tablet 11 024 Active atorvastatin (Lipitor) 80 MG tabletIndications: Other hyperlipidemia TAKE 1 TABLET BY MOUTH AT BEDTIME 30 tablet 7 024 Active pantoprazole (ProtoNix) 40 MG EC tabletIndications: Chronic gastroesophageal reflux disease TAKE 1 TABLET BY MOUTH TWICE DAILY IN THE MORNING AND IN THE EVENING BEFORE MEALS 60 tablet 7 Active nitroglycerin (Nitrostat) 0.[address] 1 tablet (0.4 mg) under the tongue every 5 (five) minutes if needed for chest pain. X 3 doses, advised call 911 if no relief 25 tablet 024 12/30 Active amitriptyline (Elavil) 10 MG tablet TAKE 1 TABLET BY MOUTH AT BEDTIME 30 tablet 5 024 Active Aspirin Low Dose 81 MG EC tabletIndications: Type 2 diabetes mellitus with other specified complication, unspecified whether halfway insulin use ([facility]) TAKE 1 TABLET BY MOUTH EVERY MORNING 90 tablet 3 024 Active calcium carbonate (Calcium Antacid) 500 MG chewable tabletIndications: Osteopenia, unspecified location CHEW 1 TABLET BY MOUTH TWICE DAILY IN THE MORNING AND IN THE EVENING FOR HEARTBURN 180 tablet 1 024 Active loratadine (Claritin) 10 MG tabletIndications: Allergic rhinitis, unspecified seasonality, unspecified trigger TAKE 1 TABLET BY MOUTH EVERY MORNING 90 tablet 1 024 Active glucose 4 g chewable tabletIndications: Type 2 diabetes mellitus with stage 4 chronic kidney disease, with long-term current use of insulin ([facility]) Chew 4 tablets as directed for low blood sugar (< 70 mg/dL). Repeat as needed. 40 tablet 5 024 Active insulin degludec (Tresiba FlexTouch) 100 UNIT/ML injectionIndicatio ns:Type 2 diabetes mellitus with stage 4 chronic kidney disease, with long-term current use of insulin ([facility]) Inject 36 Units under the skin in the evening. 15 mL 5 Active insulin aspart (NovoLOG FLEXPEN) 100 UNIT/ML penIndications:Typ e 2 diabetes mellitus with stage 4 chronic kidney disease, with long-term current use of insulin ([facility]) Inject 6 Units under the skin with breakfast AND 12 Units with evening meal. Use 1/2 dose, as directed, if eating low/no carb.. 15 mL 2 Active empagliflozin (Jardiance) 10 MGIndications:Type 2 diabetes mellitus with stage 4 chronic kidney disease, with long-term current use of insulin ([facility]) Take 1 tablet (10 mg) by mouth in the morning. 30 tablet 5 Active Linzess 145 MCG capsule Take 1 capsule by mouth Once per day. Active Alcohol Swabs (Alcohol Prep) 70 % padsIndications:Ty pe 2 diabetes mellitus with stage 4 chronic kidney disease, with long-term current use of insulin ([facility]) Use prior 6 times daily prior to BG testing & insulin administration 200 each Active Fluticasone Furoate-Vilanterol (Breo Ellipta) 200-25 MCG/ACT aerosol powder INHALE 1 PUFF BY MOUTH EVERY DAY. RINSE MOUTH AFTER USING. 1 each Active gabapentin (Neurontin) 100 MG capsule TAKE 1 CAPSULE BY MOUTH AT BEDTIME 30 capsule 5 Active sucralfate (Carafate) 1 g tabletIndications: Acute gastritis, presence of bleeding unspecified, unspecified gastritis type TAKE 1 TABLET BY MOUTH TWICE DAILY BEFORE MEALS AND BEFORE SUPPER 60 tablet 1 Active Breo Ellipta 200-25 MCG/ACT aerosol powder INHALE 1 PUFF BY MOUTH EVERY DAY RINSE MOUTH AFTER USING. 60 each 024 05/23 Discontinued gabapentin (Neurontin) 100 MG capsule TAKE 1 CAPSULE BY MOUTH AT BEDTIME 30 capsule 5 024 05/23 Discontinued sucralfate (Carafate) 1 g tabletIndications: Acute gastritis, presence of bleeding unspecified, unspecified gastritis type TAKE 1 TABLET BY MOUTH TWICE DAILY BEFORE BREAKFAST AND BEFORE SUPPER 60 tablet 1 024 05/23 Discontinued Active Problems Problem Noted Date Diagnosed Date Chronic pain of right wrist 01/01/2024 Chronic constipation 12/31/2023 Extruded tooth 12/02/2023 Missing teeth, acquired 12/02/2023 Gingival bleeding 12/02/2023 Dental calculus 12/02/2023 Generalized severe acute periodontitis Gastritis 11/20/2023 Assessment & Plan (11/20/2023 3:50 PM EDT): I advise patient to avoid NSAIDs, spicy and acid food, I advise to eat at the same time every day, I advise to elevate the head of the bed and take medications as prescribe Healthcare maintenance 08/03/2023 Chronic gastroesophageal reflux disease 12/25/19 Renal osteodystrophy 06/02/2022 Chronic pancreatitis 05/14/2022 History of non-ST elevation myocardial infarctio n (NSTEMI) 05/14/2022 Anemia 05/14/2022 Chronic kidney disease, stage 4 (severe) 023 Nonischemic cardiomyopathy 09/10/2017 Type 2 diabetes mellitus 05/15/2016 Ascending aorta dilatation 05/30/2015 Female stress incontinence 02/26/2015 History of alcohol dependence 02/26/2015 Hyperlipidemia 02/26/2015 Essential hypertension 02/26/2015 Lagophthalmos 02/26/2015 Mild intermittent asthma 02/26/2015 Assessment & Plan (05/17/2023 9:01 PM EST): -stop flovent and star advair at equivalent dose -f w PCP 4 weeks to monitors asthma BMI 35.0-35.9,adult 02/26/2015 Obstructive sleep apnea 02/26/2015 Fatty liver 02/26/2015 Resolved Problems Problem Noted Date Diagnosed Date Resolved Date Acute gingival inflammation 12/02/2023 01/01/2024 Dental abscess 12/02/2023 01/01/2024 Preop examination 05/17/2023 05/20/2023 Assessment & Plan (05/17/2023 9:02 PM EST): RCRI is 3 going for minimal risk procedure -TTE 10/2021 :Normal LV systolic function with mild LVH with impaired relaxation filling pattern. Normal cardiac valvular Doppler,Normal right atrial pressures.No pericardial effusion Pt denies concerning symptoms at this time From last labs 06/2022 Cr 1.53<---2 ,04/2022 Hb 11, hb1AC 02/2023 7.2, Today capillary CBG 147 There are no major contraindications for eye surgery -nurse staff will fax this preop note to eye surgeon -advised pt to hold on pm dose of her glipizide before surgery and to use half of her baseline insulin the night before of procedure ( so to use 15 u of tresiba night before ), ok to take her BP meds in am of surgery ,and ASA until day before of procedure unless told differently by her eye surgeon. Advised pt to take BP meds w zip of water -advised to avoid any NSAIDS Acute pancreatitis 04/21/2022 Gastrointestinal hemorrhage with melena 04/21/2022 05/14/2022 Acute non-ST segment elevati on myocardial infarction 09/10/2017 05/14/2022 Encounters Date Type Department Care Team Description 05/21/2024 Refill [facility] MED[facility] [address], [place] [phone] Myra Persaud DO Acute gastritis, presence of bleeding unspecified, unspecified gastritis type 05/12/2024 Telephone [facility] MED[facility]INE [address], [place] [phone] Myra Persaud DO Recall Appt. 05/12/2024 Travel 04/21/2024 Telephone [facility] MEDICINE [address], [place] [phone] Mery Benavides, RN Med B form 03/15/2024 Orders Only GENERIC EXTERNAL DATA DEPARTMENT Provider, Generic External Data from Last 3 Months Immunizations Name Administration Dates Next Due Hep B, adult 03/24/2024,10/07/2023,08/27/2023 Influenza High-dose Quadriva lent Preservative Free 12/24/2022 Influenza Injectable Quadriv alant Preservative Free IIV4 MDCK 02/17/2020 Influenza injectable quadriv alent preservative free 05/14/2022,06/07/2021 Influenza, High Dose Seasona l, Preservative Free 12/21/2023 Influenza, IIV3, injectable 06/02/2011 Influenza, Split (incl. bobby fied surface antigen) 12/12/2011 Influenza, Unspecified 06/02/2011 Moderna Covid-19 Vaccine 12+ 06/07/2021,07/05/19 21,06/06/2020 Moderna Covid-19 Vaccine 6+ Bivalent 05/14/2022 Pfizer Covid-19 Vaccine 12+ 01/15/2024 Pneumococcal Conjugate PCV 20 06/17/2022 Pneumococcal Polysaccharide PPSV23 09/03/2017, RSV Bivalent 03/25/2023 TD (adult), 2 Lf tetanus tox oid, preservative free, adsorbed 03/30/2007 Tdap 06/07/2021 Zoster, Recombinant 04/19/2020,02/17/2020 Family History Medical History Relation Name Comments Diabetes Brother Coronary artery disease Father Hypertension Mother Alcohol abuse Sister Relation Name Status Comments Brother Father Mother Sister Social History Tobacco Use Types Packs/Day Years Used Date Smoking Tobacco: Never Passive Smoke Exposure: Never Smokeless Tobacco: Never Tobacco Cessation:Counseling Given: Not Answered Alcohol Use Standard Drinks/Week Comments Not Currently [...] Orientation Straight 01/27/2022 10 :20 AM EDT Last Filed Vital Signs Vital Sign Reading Time Taken Comments Blood Pressure 119/68 12/31/2023 10:05 AM EDT Pulse 77 12/31/2023 10:05 AM EDT Temperature 36.4 ??C (97.6 ??F) 12/31/2023 10:05 AM E DT Respiratory Rate 15 12/31/2023 10:05 AM EDT Oxygen Saturation 96% 12/01/2023 12:13 PM EDT Inhaled Oxygen Concentration - - Weight 85.7 kg (189 lb) 12/31/2023 10:05 AM EDT Height 154.9 cm (5' 1 ) 12/31/2023 10:05 AM EDT Body Mass Index 35.71 12/31/2023 10:05 AM EDT Plan of Treatment Upcoming Encounters Date Type Department Care Team (Late st Contact Info) Description 06/22/2024 9:00 AM EDT Medication Management [facility] [address] [place] [phone] Elsi Nolasco, PharmD [address] [place] [address] 06/27/2024 10:30 AM EDT Office Visit [facility] [address] [place] [phone] Myra Persaud DO [address] [place] [phone] Health Maintenance Due Date Last Done Comments CT Colonography 1956 Dental Oral Exam 1956 Dental Prophylaxis 1956 FIT DNA/Cologuard 1956 FIT 1956 Sigmoidoscopy 1956 Diabetes: Foot Exam 1966 Alcohol/Substance Use Screening 1968 Hepatitis A Vaccines (1 of 2 - Risk 2-dose series) 10/21/1975 FOBT 11/07/2020 11/08/2019 Lipid Panel 07/09/2024 07/10/2023, 04/30, 06/28/2021, Additional history exists SDOH Screening 07/16/2024 07/17/2023 Depression Screening 08/02/2024 08/03/2023, 08/03/19 Diabetes: Hemoglobin A1C 09/22/2024 024, 12/21/2023, 10/07/2023, Additional history exists Mammogram 10/15/2024 10/16/2023, 09/2022, 10/03/2022, Additional history exists Dental X-Ray: Bitewings 12/02/2024 12/02/2023, 11/11 Tobacco Screening 02/07/2025 02/08/2024 Eye Exam 02/02/2026 02/03/2024, 08/2023, 02/03/2024, Additional history exists Dental X-Ray: Full Mouth 12/02/2026 12/02/2023, 10/28 Colonoscopy 07/26/2027 Colorectal Cancer Screening 07/26/2027 DTaP/Tdap/Td Vaccines (2 - Td or Tdap) 06/08/2031 06/07/2021, 03/30/2007 Zoster Vaccines Completed 04/19/2020, 02/17/2020 Cervical Cancer Screening Discontinued HPV/Cotest Discontinued 06/25/2021 Pap Smear Discontinued 06/25/2021 Hepatitis C Screening Completed 09/09/2021 , 09/09/2021, 06/28/2021 Pneumococcal Vaccine: 50+ Years Completed 06/17/2022, 09/03/2017, 03/18/2012 RSV Patients and Patients Aged 60 years or older Completed 03/25/2023 Influenza Vaccine Completed 12/21/2023, , 05/14/2022, Additional history exists COVID-19 Vaccine Completed 01/15/2024, , 06/07/2021, Additional history exists Hepatitis B Vaccines Completed 03/24/2024, 10/07/2023, 08/27/2023 HIB Vaccines Aged Out No longer eligi ble based on patient's age to complete this topic HPV Vaccines Aged Out No longer eligi ble based on patient's age to complete this topic IPV Vaccines Aged Out No longer eligi ble based on patient's age to complete this topic Meningococcal Vaccine Aged Out No leila marimar eligible based on patient's age to complete this topic RSV under 20 months Aged Out No longe r eligible based on patient's age to complete this topic Rotavirus Vaccines Aged Out No longer eligible based on patient's age to complete this topic Goals Goal Patient Goal Type Associated Problems Recent Progress Patient-Stated? Author Hemoglobin A1c < 7.5 Result Component 6.8( 9:27 AM EST) No Shady Slade PharmD Record your blood sugar as directed Result Component No Elsi Nolasco PharmD Procedures Procedure Name Priority Date/Time Associated Diagnosis Comments POCT GLYCATED HEMOGLOBIN, TOTAL Routine 03/24/2024 9:27 AM EST Type 2 diabetes mellitus with stage 4 chronic kidney disease, with long-term current use of insulin ([facility]) FERRITIN Routine 03/15/2024 12:25 PM EST VITAMIN D,25-OH,TOTAL,IA Routine 03/15/2024 12:25 PM EST ALBUMIN Routine 03/15/2024 12:25 PM EST MAGNESIUM Routine 03/15/2024 12:25 PM EST PHOSPHATE ( PHOSPHORUS) Routine 03/15/2024 12:25 PM EST CALCIUM Routine 03/15/2024 12:25 PM EST CREATININE, SERUM Routine 03/15/2024 12: 25 PM EST UREA NITROGEN (BUN) Routine 03/15/2024 1 2:25 PM EST ELECTROLYTE PANEL Routine 03/15/2024 12: 25 PM EST PTH, INTACT WITHOUT CALCIUM Routine 03/15/2024 12:25 PM EST CBC WITH AUTO DIFFERENTIAL Routine 03/15/2024 12:25 PM EST PROTEIN CREATININE RATIO, URINE Routine 03/15/2024 12:16 PM EST ALBUMIN, RANDOM URINE W/CREATININE Routine 03/15/2024 12:16 PM EST URINALYSIS, COMPLETE Routine 03/15/2024 12:16 PM EST CULTURE, URINE, ROUTINE Routine 03/15/2024 12:16 PM EST INTRAORAL - COMPLETE SERIES OF RADIOGRAPHIC IMAGES Routine 12/02/2023 8:00 AM EDT Extruded tooth Acute gingival inflammation Gingival bleeding Missing teeth, acquired Dental abscess Dental calculus Generalized severe acute periodontitis BI MAMMOGRAM SCREENING TOMOSYNTHESIS BILATERAL Routine 10/16/2023 1:25 PM EDT LIPID PANEL, STANDARD Routine 07/10/2023 10:01 AM EDT ZZZ HISTORICAL HEPATITIS B SURFACE ANTIBODY Routine 09/09/2021 4:20 PM EDT HPV MRNA E6/E7 REFLEX TO HPV 16, 18/45 Routine 06/25/2021 9:16 AM EDT THINPREP IMAGING SYSTEM PAP Routine 06/25/2021 9:16 AM EDT OCCULT BLOOD, FECAL, IMMUNOASSAY Routine 11/08/2019 9:39 AM EDT from Last 3 Months or Most Recently Relevant to Health Maintenance Results * (ABNORMAL) POCT HGB A1C (03/24/2024 9:27 AM EST) Hemoglobin A1C 6.8(A) 4.0 - 6.0 % Blood 03/24/2024 9:27 AM EST Myra Persaud DO POINT OF CARE TEST ENTER/HUMBERTO T ORDERABLES Final Result * (ABNORMAL) Vitamin D, 25-Hydroxy, Total, Immunoassay (03/15/2024 12:25 PM EST) Vitamin D 25-OH Total 15.3(L) >30 ng/mL [facility] Comment:Health Based Referen ce Values*< 20 ng/mL Hqshetsde35-16 ng/mL Insufficient> 30 ng/mL Sufficient*Herb ALONSO. N Engl J Med. 2007;357:266-280Care must be taken in interpreting Vitamin D results fromdifferent laboratories and methodologies. Published datademonstrated that results from patients undergoinghemodialysis may show a negative bias when tested withvarious automated 25-OH vitamin D assays when compared toLC-MS/MS.When testing samples from patients whose predominant form ofVitamin D is Vitamin D2, such as patients receiving VitaminD2 supplementation, results that are subtherapeutic shouldbe confirmed with another method such as LC-MS/MS. 03/15/2024 12:2 5 PM EST 03/15/2024 12:30 PM EST us Generic External Data Provider LAB BLOOD ORDERAB LES Final Result Performing Organization Address City/[facility]/ZIP Co de Phone Number [facility] [address] [place] [phone] * (ABNORMAL) Creatinine, Serum (03/15/2024 12:25 PM EST) Creatinine, Serum 1.84(H) 0.5 - 1.4 mg/dL [facility] Estimated Glomerular Filt Rate 27 [facility] Comment:Chronic Kidney Disea se: Estimated GFR < 60 mL/min/1.32a6Vrrcck Kidney Disease: Estimated GFR < 15 mL/min/1.73m2 03/15/2024 12:2 5 PM EST 03/15/2024 12:30 PM EST us Generic External Data Provider LAB BLOOD ORDERAB LES Final Result [facility] [address] [place] [phone] * (ABNORMAL) CBC auto differential (03/15/2024 12:25 PM EST) White Blood Count 11.0(H) 4.8 - 10.8 X10*3/uL [facility] Red Blood Count 4.07(L) 4.20 - 5.50 X10*6/uL [facility] Hemoglobin 11.3(L) 12.0 - 16.0 g/dl [facility] Hematocrit 37.4 37.0 - 47.0 % [facility] Mean Corpuscular Volume 91.9 80.0 - 98.0 fL [facility] Mean Corpuscular Hemoglobin 27.8 27.0 - 33.0 pg [facility] Mean Corpuscular HGB Conc 30.2(L) 31.0 - 35.0 g/dl [facility] Red Cell Distribution Width 14.7 11.0 - 16.0 % [facility] Platelet Count 195 160 - 400 X10*3/uL [facility] Mean Platelet Volume 9.9 9.4 - 12.3 fL [facility] Neutrophils Percent Auto 51.7 45 - 73 % [facility] Imm Gran Pct Auto 0.4 0.0 - 0.4 % [facility] Lymphocytes Percent Auto 38.4 20 - 40 % [facility] Monocytes Percent Auto 6.3 2 - 11 % [facility] Eosinophils Percent Auto 2.9 0 - 4 % [facility] Basophils Percent Auto 0.3 0 - 2 % [facility] NRBC Pct Auto 0.0 0.0 - 0.2 /100WBC [facility] Neutrophils Absolute Auto 5.7 2.0 - 8.3 x10*3/uL [facility] Imm Gran Abs Auto 0.04(H) 0.00 - 0.03 X10*3/uL [facility] Lymphocytes Absolute Auto 4.2 1.2 - 4.9 X10*3/uL [facility] Monocytes Absolute Auto 0.7 0.1 - 1.2 X10*3/uL [facility] Eosinophils Absolute Auto 0.3 0.0 - 0.4 X10*3/uL [facility] Basophils Absolute Auto 0.0 0.0 - 0.2 X10*3/uL [facility] NRBC Abs Auto 0.000 0.0 - 0.012 X10*3/uL [facility] 03/15/2024 12:2 5 PM EST 03/15/2024 12:30 PM EST Generic External Data Provider LAB BLOOD ORDERAB LES Final Result Performing Organization Address [facility] Phone Number [facility] [address] [place] [phone] * (ABNORMAL) BUN (Blood Urea Nitrogen) (03/15/2024 12:25 PM EST) Urea Nitrogen (BUN) 23(H) 9 - 16 mg/dL [facility] 03/15/2024 12:2 5 PM EST 03/15/2024 12:30 PM EST Generic External Data Provider LAB BLOOD ORDERAB LES Final Result Performing Organization Address [facility] Phone Number [facility] [address] [place] [address] [phone] * Phosphate (As Phosphorus) (03/15/2024 12:25 PM EST) Phosphorus 3.0 2.7 - 4.5 mg/dL [facility] 03/15/2024 12:2 5 PM EST 03/15/2024 12:30 PM EST Generic External Data Provider LAB BLOOD ORDERAB LES Final Result Performing Organization Address [facility] Co de Phone Number [facility] [address] [place] [phone] * (ABNORMAL) PTH, Intact Without Calcium (03/15/2024 12:25 PM EST) Parathyroid Hormone, Intact 369.7(H) 8.7 - 77.1 pg/mL [facility] 03/15/2024 12:2 5 PM EST 03/15/2024 12:30 PM EST Generic External Data Provider LAB BLOOD ORDERAB LES Final Result Performing Organization Address City/[facility] Co de Phone Number [facility] [address] [place] [phone] * Magnesium (03/15/2024 12:25 PM EST) Magnesium 2.1 1.6 - 2.6 mg/dL [facility] 03/15/2024 12:2 5 PM EST 03/15/2024 12:30 PM EST Generic External Data Provider LAB BLOOD ORDERAB LES Final Result Performing Organization Address [facility] Co de Phone Number [facility] [address] [place] [address] [phone] * (ABNORMAL) Ferritin (03/15/2024 12:25 PM EST) Ferritin 566(H) 10 - 250 ng/mL [facility] 03/15/2024 12:2 5 PM EST 03/15/2024 12:30 PM EST Generic External Data Provider LAB BLOOD ORDERAB LES Final Result Performing Organization Address [facility] de Phone Number [facility] [address] [place] [phone] * Calcium (03/15/2024 12:25 PM EST) Calcium 8.9 8.4 - 10.2 mg/dL [facility] 03/15/2024 12:2 5 PM EST 03/15/2024 12:30 PM EST Generic External Data Provider LAB BLOOD ORDERAB LES Final Result Performing Organization Address [facility] Phone Number [facility] [address] [place] [address] [phone] * Albumin (03/15/2024 12:25 PM EST) Pathologist [facility] Albumin Level 3.8 3.5 - 5.0 g/dL [facility] 03/15/2024 12:2 5 PM EST 03/15/2024 12:30 PM EST Generic External Data Provider LAB BLOOD ORDERAB LES Final Result Performing Organization Address [facility] [address] [place] [phone] * (ABNORMAL) Electrolyte Panel (03/15/2024 12:25 PM EST) Pathologist [facility] Sodium 140 135 - 145 mmol/L [facility] Potassium 3.7 3.3 - 5.1 mmol/L [facility] Chloride 112(H) 96 - 108 mmol/L [facility] Carbon Dioxide 20(L) 22 - 29 mmol/L [facility] Anion Gap 12 12 - 20 [facility] 03/15/2024 12:2 5 PM EST 03/15/2024 12:30 PM EST Generic External Data Provider LAB BLOOD ORDERAB LES Final Result Performing Organization Address [facility] Phone Number [facility] [address] [place] [phone] * Protein Creatinine Ratio, Urine (03/15/2024 12:16 PM EST) Protein, Total, Random Urine <7 <12 mg/dL [facility] Protein/Creatin ine Ratio, Ur TNP <0.2 [facility] Comment:Unable to calculate urine protein creatinine ratio due tolow creatinine or protein result. 03/15/2024 12:1 6 PM EST 03/15/2024 12:42 PM EST Generic External Data Provider LAB URINE ORDERAB LES Final Result Performing Organization Address [facility] de Phone Number [facility] [address] [place] [address] [phone] * Albumin, Random Urine W/Creatinine (03/15/2024 12:16 PM EST) Creatinine, Urine 50.03 mg/dL [facility] Microalbumin Urine <5.0 mg/L [facility] Microalbum Creatinine Ratio Ur TNP <30 ug/mg cr [facility] Comment:Unable to calculate albumin/creatinine ratio due to lowmicroalbumin or creatinine result. 03/15/2024 12:1 6 PM EST 03/15/2024 12:42 PM EST Generic External Data Provider LAB URINE ORDERAB LES Final Result Performing Organization Address [facility] Phone Number [facility] [address] [place] [phone] * (ABNORMAL) Urinalysis Complete (03/15/2024 12:16 PM EST) Color Urine Yellow [facility] Appearance Urine Clear [facility] PH 5.5 5.0 - 9.0 [facility] Glucose Urine UA 500(A) Negative mg/dL [facility] Urine Blood Negative Negative [facility] Specific [place] - Urine 1.010 1.005 - 1.025 [facility] Urine Protein Negative Neg-Trace mg/dL [facility] Urine Ketones Negative Negative mg/dL [facility] Nitrite Urine Negative Negative [facility] Leukocyte Esterase Urine Trace(A) Negative [facility] RBC Urine 0-2 0 - 2 /HPF [facility] Urine WBC 0-5 0 - 5 /HPF [facility] Urine Squamous Epithelial Cell 0-2 0 - 2 /HPF [facility] Urine Bacteria None Seen None Seen [facility] Hyaline Casts, Urine 0-2 0 - 2 /LPF [facility] 03/15/2024 12:1 6 PM EST 03/15/2024 12:42 PM EST Generic External Data Provider LAB URINE ORDERAB LES Final Result Performing Organization Address City/[facility]/ZIP Co de Phone Number [facility] [address] [place] [phone] * Culture, Urine, Routine (03/15/2024 12:16 PM EST) Urine Urine specimen obtained by clean catch procedure / Unknown 03/15/2024 12:16 PM EST 03/15/2024 12:42 PM EST Comment:UACC Narrative [facility] - 03/16/2024 7:59 AM EST Urine Culture Report Result Urine Culture 10,000 to 50,000 cfu/ml Urine Culture Mixed bacterial rhonda characteristic of Urine Culture urogenital contamination. Specimen Source: Urine clean catch Generic External Data Provider LAB MICROBIOLOGY - GENERAL ORDERABLES Final Result Performing Organization Address City/[facility]/ZIP Co de Phone Number [facility] [address] [place] [phone] * BI Mammogram Screening Tomosynthesis Bilateral (10/16/2023 1:25 PM EDT) Anatomical Region Laterality Modality Breast Bilateral Mammography 10/16/2023 1:25 PM EDT Narrative 11/10/2023 2:45 PM EDT ? [facility] ? [address] ?[place] [address] ? Mammography Report ? Signed ? Patient: Denise,Iris N ?MR#: [id number] ?? 36 ? : 1955 ?Acct:[id number] ? Age/Sex: 67 / F ?ADM Date: 07/19/24 ? Loc: HO.MAMMO ? Attending Dr: Turner Arana PA ? Ordering Physician: TURNER ARANA ? Results: 1Negat ?? leroy ? Date of Service: 10/16/23 ?Follow Up: 1 Year From Orig ?? inal Mammogram ? Procedure(s): MM tomosynthesis screening BI ?? Accession Number(s): [id number] ? cc: TURNER ARANA ; Myra Persaud DO ? EXAMINATION: ?? MM SCREENING DIGITAL BREAST TOMOSYNTHESIS, BILATERAL ? CLINICAL INFORMATION: ? Screening. Asymptomatic. ? COMPARISON: ?? Mammography: This study is compared with prior exams dating back to ?? 2019. ? TECHNIQUE: ?? Digital breast tomosynthesis is performed in both the craniocaudal and ?? mediolateral oblique views along with computer-aided detection (CAD). ?? Synthesized 2D images are generated from the tomosynthesis. ? FINDINGS: ?? There are scattered areas of fibroglandular density (ACR BI-RADS breast ?? composition Category b). ? There are no significant masses, abnormal calcifications, or other ?? abnormalities. ? MM/MM tomosynthesis screening BI ?? IMPRESSION: ?? No mammographic evidence of malignancy. ? ASSESSMENT: ? BI-RADS BI-RADS 1 - Negative ? RECOMMENDATION: ?? Routine annual mammography screening. ? 1 year F/U ? This examination should not preclude the clinical evaluation of a ?? suspicious palpable abnormality. ? This patient's information was entered into a reminder system with a ?? target due date for their next mammogram. ? Dictated By: ?Flora Person MD ? Signed By: ?<Electronically signed by Flora Person MD in OV> ? 11/10/23 1440 ? DD/ 1325 ? TD/TT: ? Dairy Technician: ? Procedure Note Donedouardter, Image - 11/10/2023 [facility] [address] [place] [address] Mammography Report Signed Patient: Amy Walker NMR#: [id number] 35 : 7Acct:[id number] Age/Sex: 67 / FADM Date: 10/16/23 Loc: HOHERMILO Attending Dr: Turner KESSLER Ordering Physician: TURNER ARANAResults: 1Negat leroy Date of Service: 10/16/23Follow Up: 1 Year From Orig inal Mammogram Procedure(s): MM tomosynthesis screening BI Accession Number(s): [id number] cc: TURNER ARANA Jennifer A DO EXAMINATION: MM SCREENING DIGITAL BREAST TOMOSYNTHESIS, BILATERAL CLINICAL INFORMATION: Screening. Asymptomatic. COMPARISON: Mammography: This study is compared with prior exams dating back to 2019. TECHNIQUE: Digital breast tomosynthesis is performed in both the craniocaudal and mediolateral oblique views along with computer-aided detection (CAD). Synthesized 2D images are generated from the tomosynthesis. FINDINGS: There are scattered areas of fibroglandular density (ACR BI-RADS breast composition Category b). There are no significant masses, abnormal calcifications, or other abnormalities. MM/MM tomosynthesis screening BI IMPRESSION: No mammographic evidence of malignancy. ASSESSMENT: BI-RADS BI-RADS 1 - Negative RECOMMENDATION: Routine annual mammography screening. 1 year F/U This examination should not preclude the clinical evaluation of a suspicious palpable abnormality. This patient's information was entered into a reminder system with a target due date for their next mammogram. Dictated By: Flora Person MD Signed By: <Electronically signed by Flora Person MD in OV> 11/10/23 1440 DD/ 1325 TD/TT: Dairy Technician: [facility] External Provider IMG BI PROCEDURES Final Result * Lipid Panel, Standard (07/10/2023 10:01 AM EDT) Triglycerides 86 <150 mg/dL [facility] Comment:Desirable Triglyceri de: less than 150 mg/dLBorderline High Triglyceride 150-199 mg/dLHigh Triglyceride: 200-499 mg/dLVery High Triglyceride: greater than or equal to 5OO mg/dL Cholesterol 117 <200 mg/dL [facility] Comment:Desirable Cholestero l: less than 200 mg/dLBorderline High Cholesterol: 200-239 mg/dLHigh Cholesterol: greater than 239 mg/dL LDL Cholesterol Calculated 45 <100 mg/dL [facility] Comment:Desirable LDL: less than 100 mg/dLNear Optimal/Above Optimal LDL: 110- 129 mg/dLBorderline High LDL: 130-159 mg/dLHigh LDL: 160-189 mg/dLVery High LDL: greater than or equal to 190 mg/dL HDL Cholesterol 55 >40 mg/dL [facility] Comment:Desirable HDL: great er than 40 mg/dL Note: This HDL assay may give artificially low results in patients with liver disease. 07/10/2023 10:0 1 AM EDT 07/10/2023 11:59 AM EDT Myra Persaud DO LAB BLOOD ORDERABLES Final R esult [facility] [address] [place] [phone] * HEPATITIS B SURFACE ANTIBODY (09/09/2021 4:20 PM EDT) Hepatitis B Surface Antibody NONREACTIVE Nonreactive [facility] Comment:Nonreactive: < 8.00 mIU/mL Hepatitis B Core Antibody Reactive Nonreactive [facility] Comment:Presumptive evidence of anti-HBc. Hepatitis C Antibody Nonreactive Nonreactive [facility] Comment: Antibodies to HCV not detected; does not exclude early acute HCV infection. Hepatitis B Surface Antigen Negative Negative [facility] 09/09/2021 4:20 PM EDT us Jeison Bhakta MD HISTORICAL/NON ORDERABLE LABS Final Result Performing Organization Address [facility] de Phone Number [facility] [address] [place] [address], * THINPREP TIS PAP (06/25/2021 9:16 AM EDT) Clinical Information: None given [facility] COMMENT SEE COMMENT [facility] Comment: EXPLANATORY NOTE: ? The Pap is a screening test for cervical cancer. It is ?? not a diagnostic test and is subject to false negative ?? and false positive results. It is most reliable when a ?? satisfactory sample, regularly obtained, is submitted ?? with relevant clinical findings and history, and when ?? the Pap result is evaluated along with historic and ?? current clinical information. ?? COMMENT: This Pap test has been evaluated with computer assisted technology. [facility] Technical Sales Associate : SEE COMMENT [facility] Comment: DCR, CT(ASCP) CT screening location: [address] ??[address] Interpretation/R esult: Negative for intraepithelial lesion or malignancy. [facility] LMP: NONE GIVEN [facility] Prev. BX: NONE GIVEN [facility] Prev. PAP: NONE GIVEN [facility] SOURCE: None given [facility] Statement Of Adequacy: SATISFACTORY FOR EVALUATION [facility] 06/25/2021 9:16 AM EDT us Myra Persaud DO LAB PATHOLOGY ORDERABLES Fin al Result Performing Organization Address [facility] Co de Phone Number [facility] [address] * HPV mRNA E6/E7 REFLEX TO HPV 16, 18/45 (06/25/2021 9:16 AM EDT) HPV nRNA E6/E7 Not Detected Not Detected [facility] Comment: Methodology: [employer] Developer-Mediated Amplification This assay detects E6/E7 viral messenger RNA (mRNA) from 14 high-risk HPV types (16,18,31,33,35,39,45,51,52,56,58,59,66,68). ? The analytical performance characteristics of this assay have been determined by [employer]. The modifications have not been cleared or approved by the FDA. This assay has been validated pursuant to the CLIA regulations and is used for clinical purposes. ?? For additional information, please refer to http://education.[employer]/faq/RRR047k3 (This link if provided for information/ educational purposes only.) 06/25/2021 9:16 AM EDT Myra Persaud DO LAB CYTOLOGY ORDERABLES Jeane l Result Performing Organization Address [facility]/ZIP Co de Phone Number [facility] [address] * (ABNORMAL) OCCULT BLOOD STOOL (11/08/2019 9:39 AM EDT) OCCULT BLOOD STOOL POS(AA) NEG [facility] 11/08/2019 9:39 AM EDT Historical Provider LAB BODY FLUIDS AND STOOL S ORDERABLES Final Result Performing Organization Address [facility]/ZIP Co de Phone Number [facility] [address] from Last 3 Months or Most Recently Relevant to Health Maintenance Insurance [address] [place] [id number] MEDICARE [facility] STANDARD D[facility] MEDICA[facility] STAND ADULT [address] [place] [address] Care Teams Tangled Yarn Worker Relationship Specialty Start Date End Date Myra Persaud DO [address] [place], [place] [phone] PCP - General Family Medicine 10/18/13 Elsi Nolasco, Amina [address] [place], [place] [phone] Pharmacist Internal Medicine 11/24/22
--- OUTSIDE RECORDS SUMMARY | 2024-06-06 08:51 | XMS_ITS | Encounter Summary ---
Author Organization [facility] Address [address] [place] [address] Care Team Providers Care Discharge Planner Name Role Phone Myra Persaud DO Primary Care Provider [phone] Elsi Nolasco PharmD Unavailable [phone] Reason for Visit * Reason Onset Date Comments PT1 10/08/2023 Encounter Details Date Type Department Care Team ([facility] st Contact Info) Description 10/08/2023 Telephone [facility] [address] [place] [address] Myra Persaud DO [address] [place] [address] PT1 Social History Tobacco Use Types Packs/Day [...] encounter Miscellaneous Notes * Telephone Encounter - Laureen Max - 10/08/2023 11:27 AM EDT Patient calling requesting PT1 1.)Home Address verified: Y/N: Yes Provider name or facility name: [facility] Facility Address: [address] [place] [phone] Escort needed: Y/N: No Do you have a wheelchair: Y/N: No If yes- Manual or electric: no Visits: 4-5 times a month 2.)Home Address verified: Y/N: Yes Provider name or facility name: [facility] Facility Address: [address] [place] [phone] Escort needed: Y/N: No Do you have a wheelchair: Y/N: No If yes- Manual or electric: Visits: 7-8 times a month documented in this encounter Plan of Treatment Upcoming Encounters Date Type Department Care Team (Late st Contact Info) Description 06/22/2024 9:00 AM EDT Medication Management [facility] [address] [place] [phone] Elsi Nolasco, RakeshD [address] [place] [address] 06/27/2024 10:30 AM EDT Office Visit [facility] [address] [place] [address] Myra Persaud DO [address] [place] [address] documented as of this encounter Goals Goal Patient Goal Type Associated Problems Recent Progress Patient-Stated? Author Hemoglobin A1c < 7.5 Result Component 6.8( 9:27 AM EST) No Shady Slade, PharmDanielle Record your blood sugar as directed Result Component No Elsi Nolasco PharmD documented as of this encounter Visit Diagnoses Not on filedocumented in this encounter Additional Health Concerns Assessment Noted Time PHQ-9 Depression Total Score: 1 08/03/19 24 10:16 AM EDT documented as of this encounter Care Teams Discharge Planner Relationship Specialty Start Date End Date [place] [address] PCP - General Family Medicine 10/18/13 Elsi Nolasco, [place] [address] Pharmacist Internal Medicine 11/24/22 documented as of this encounter
--- OUTSIDE RECORDS SUMMARY | 2024-06-06 08:51 | XMS_ITS | Clinical Summary ---
Author Organization [facility] Address [address] [place] [phone] Phone Care Team Providers Care Body Hanger Name Role Phone Myra Persaud DO Primary Care Provider Unava ilable Allergies Active Allergy Reactions Criticality Noted Date Comments Simvastatin 09/09/2021 Medications folic acid (FOLVITE) 1 MG tablet Take 1 mg by mouth 1 (one) time each day Active ketotifen (ZADITOR) 0.025 % ophthalmic solution 1 drop 2 (two) times a day Active Lancets (freestyle) lancets 1 each by Other route if needed Use as instructed Active aspirin (ST VICTORIA) 81 MG EC tablet Take 81 mg by mouth 1 (one) time each day Active carvedilol (COREG) 3.125 MG tablet Take 3.125 mg by mouth 2 (two) times a day with meals Active fluticasone HFA (FLOVENT HFA) 110 MCG/ACT inhaler Inhale 1 puff 2 (two) times a day Rinse mouth with water after use to reduce aftertaste and incidence of candidiasis. Do not swallow. Active albuterol HFA (PROVENTIL HFA;VENTOLIN HFA) 108 (90 Base) MCG/ACT inhaler Inhale 2 puffs every 6 (six) hours if needed for wheezing Active loratadine (CLARITIN) 10 MG tablet Take 10 mg by mouth 1 (one) time each day Active calcium carbonate (TUMS) 500 MG chewable tablet Chew 1 tablet 1 (one) time each day Active pancrelipase, Orq-Cztw-Lxir, (Creon) 18533-10212 units capsule Take 1 capsule by mouth 3 (three) times a day with meals Active diclofenac (VOLTAREN) 0.1 % ophthalmic solution 1 drop 4 (four) times a day Active bisacodyl (DULCOLAX) 5 MG EC tablet Take 5 mg by mouth 1 (one) time each day if needed for constipation Do not crush, chew, or split. Active baclofen (LIORESAL) 10 MG tablet Take 10 mg by mouth in the morning and 10 mg in the evening and 10 mg before bedtime. Active gabapentin (NEURONTIN) 100 MG capsule Take 100 mg by mouth in the morning and 100 mg in the evening and 100 mg before bedtime. Active atorvastatin (LIPITOR) 80 MG tablet Take 80 mg by mouth 1 (one) time each day Active Arthritis Pain Relief 650 MG 8 hr tablet Take 650 mg by mouth every 8 (eight) hours if needed 3 Active ondansetron (ZOFRAN) 4 MG tablet Take 4 mg by mouth every 8 (eight) hours if needed for nausea or vomiting Active amLODIPine-ator vastatin (CADUET) 2.5-20 MG per tablet Take 1 tablet by mouth 1 (one) time each day Active glipiZIDE (GLUCOTROL) 10 MG tablet Take 10 mg by mouth 4 Active Insulin Degludec (Tresiba) 100 UNIT/ML solution Inject 30 Units under the skin Active Empagliflozin (Jardiance) 10 MG tablet Take 10 mg by mouth 1 (one) time each day in the morning Active ergocalciferol 1.25 MG (13882 UT) capsuleIndicati ons:Stage 3b chronic kidney disease (HCC) TAKE 1 CAPSULE BY MOUTH EVERY MONTH 1 capsule 3 4 Active amLODIPine (NORVASC) 2.5 MG tablet TAKE 1 TABLET BY MOUTH EVERY MORNING 90 tablet 3 4 Active Linzess 145 MCG capsule Take 1 capsule by mouth in the morning. 4 Active calcitriol (ROCALTROL) 0.25 MCG capsule Take 1 capsule (0.25 mcg total) by mouth every other day TAKE 1 CAPSULE BY MOUTH EVERY OTHER DAY IN THE MORNING 45 capsule 1 5 03/31/19 26 Active Active Problems Problem Noted Date Diagnosed Date Chronic kidney disease, stage 4 (severe) 023 Renal osteodystrophy 06/02/2022 History of non-ST segment elevation myocardial i nfarction 05/14/2022 Chronic pancreatitis 05/14/2022 Anemia 05/14/2022 Chronic kidney disease, stage 4 (severe) 022 Stage 3b chronic kidney disease 10/24/2021 Chronic kidney disease, stage 4 (severe) 022 Renal osteodystrophy 09/09/2021 Type 2 diabetes mellitus wit h diabetic chronic kidney disease 09/09/2021 Anemia in chronic kidney disease 09/09/2021 Stage 3 chronic kidney disease 03/04/2020 Overview (04/02/2020): Update for Diagnosis Load Diabetes mellitus 03/04/2020 Microalbuminuria due to type 2 diabetes mellitus 03/04/2020 Hypertension 03/04/2020 Cardiomyopathy 09/10/2017 Ascending aorta dilatation 05/30/2015 Obesity 02/26/2015 Mild intermittent asthma 02/26/2015 Lagophthalmos 02/26/2015 Hyperlipidemia 02/26/2015 H/O: alcoholism 02/26/2015 Female stress incontinence 02/26/2015 Fatty liver 02/26/2015 Obstructive sleep apnea 02/26/2015 Encounters Date Type Department Care Team Description 03/31/2024 2:45 PM EST Office Visit [facility] [address] [place] [address] Jeison Bhakta MD Chronic kidney disease, stage 4 (severe) (HCC) (Primary Dx); Renal osteodystrophy; Type 2 diabetes mellitus with diabetic chronic kidney disease (HCC) 03/27/2024 Refill [facility] [address] [place] [address] Segundo Aguilar MD 03/15/2024 Orders Only [facility] [address] [facility] [address] [place] [address] Jeison Bhakta MD from Last 3 Months Immunizations Name Administration Dates Next Due Influenza Split 12/12/2011 Influenza, MDCK, PF, Quadrivalent 02/17/2020 Influenza, Quadrivalent, Preservative Free 05/14,06/07/2021 Influenza, Unspecified 06/02/2011 Moderna SARS-COV-2 05/14/2022 Pneumococcal Polysaccharide 09/03/2017, 2 Shingrix 04/19/2020,02/17/2020 Td 03/30/2007 Tdap 06/07/2021 Zoster 02/17/2020 Family History Relation Status Comments Father Mother Social History Tobacco Use Types Packs/Day Years Used Date Smoking Tobacco: Never Smokeless Tobacco: Never Tobacco Cessation:Counseling Given: Not Answered Alcohol Use Standard Drinks/Week Comments Never 0 (1 standard drink = 0.6 oz pur e alcohol) Comments Unknown Sex and Gender Information Value Date Recorded Sex Assigned at Not on file Legal Sex Female 1:08 PM EDT Gender Identity Not on file Sexual Orientation Not on file Last Filed Vital Signs Vital Sign Reading Time Taken Comments Blood Pressure 124/60 03/31/2024 1:49 PM EST Pulse 88 03/31/2024 1:49 PM EST Temperature - - Respiratory Rate - - Oxygen Saturation 98% 03/31/2024 1:49 PM EST Inhaled Oxygen Concentration - - Weight 86.2 kg (190 lb) 03/31/2024 1:49 PM EST Height - - Body Mass Index - - Plan of Treatment Upcoming Encounters Date Type Department Care Team (Late st Contact Info) Description 10/03/2024 1:00 PM EDT Office Visit [facility] [address] [facility] [address] [place], [place] [address] [address] Jeison Bhakta MD [address] [facility] [address] [place] [address] Health Maintenance Due Date Last Done Comments Breast Cancer Screening 1955 Colorectal Cancer Screening: Annual FOBT 2005 Colorectal Cancer Screening: Colonoscopy 2005 Colorectal Cancer Screening: Sigmoidoscopy 2005 Hepatitis B Vaccine (1 of 3 - Risk 3-dose series) 2016 03/24/2024, 10/07/2023, 08/27/2023 Diabetes: Ophthalmology Exam 08/19/2021 Diabetes: Pedal Pulse Checked 08/19/2021 Diabetes: Sensory Foot Exam 08/19/2021 Diabetes: Visual Foot Exam 08/19/2021 Diabetes: Hemoglobin A1C 06/22/202403/24/ 024, 07/10/2023, 05/14/2022, Additional history exists Pneumococcal Vaccine: 65+ Years Completed 06/17/2022, 09/03/2017, 03/18/2012 Influenza Vaccine Completed 12/21/2023, , 06/07/2021, Additional history exists Procedures Procedure Name Priority Date/Time Associated Diagnosis Comments PROTEIN / CREATININE RATIO, URINE Routine 03/15/2024 12:42 PM EST ALBUMIN, URINE, RANDOM Routine 03/15/2024 12:42 PM EST URINALYSIS WITH MICROSCOPIC Routine 03/15/2024 12:42 PM EST VITAMIN D 25 HYDROXY Routine 03/15/2024 12:30 PM EST ALBUMIN Routine 03/15/2024 12:30 PM EST MAGNESIUM Routine 03/15/2024 12:30 PM EST PHOSPHATE ( PHOSPHORUS) Routine 03/15/2024 12:30 PM EST CALCIUM Routine 03/15/2024 12:30 PM EST CREATININE, BLOOD Routine 03/15/2024 12: 30 PM EST BUN Routine 03/15/2024 12:30 PM EST ELECTROLYTE PANEL Routine 03/15/2024 12: 30 PM EST PTH, INTACT (HC) Routine 03/15/2024 12:3 0 PM EST CBC AND DIFFERENTIAL Routine 03/15/2024 12:30 PM EST from Last 3 Months Results * Protein, Total, Random Urine w/Creatinine (Protein/Creat Ratio) (03/15/2024 12:42 PM EST) Protein Urine Random <7 <12 mg/dL See order comments Protein/Creatin ine Ratio, Urine TNP <0.2 See order comments Comment: Unable to calculate urine protein creatinine ratio due to low creatinine or protein result. 03/15/2024 12:4 2 PM EST 03/15/2024 12:42 PM EST Jeison Bhakta MD LAB URINE ORDERABLES Final Re sult [place] See order comments [place] [address] * Albumin, urine, random (03/15/2024 12:42 PM EST) Creatinine, Urine 50.03 mg/dL Se e order comments Urine Microalbumin <5.0 mg/L See order comments Microalbumin/Crea tinine Ratio TNP <30 ug/mg cr See order comments Comment: Unable to calculate albumin/creatinine ratio due to low microalbumin or creatinine result. 03/15/2024 12:4 2 PM EST 03/15/2024 12:42 PM EST Jeison Bhakta MD LAB URINE ORDERABLES Final Re sult [place] See order comments [place] [address] * (ABNORMAL) Urinalysis with microscopic (03/15/2024 12:42 PM EST) Color Urine Yellow See orde r comments Appearance Urine Clear See order comments pH Urine 5.5 5.0 - 9.0 See order comments Glucose Urine 500(A) Negative mg/dL See order comments Blood, Urine Negative Negative See ord er comments Specific [place] Urine 1.010 1.005 - 1.025 See order comments Protein Urine Negative Neg-Trace mg/dL See order comments Ketones, Urine Negative Negative mg/dL See order comments Nitrite, Urine Negative Negative See o rder comments Leukocyte Esterase Urine Trace(A) Negative See order comments RBC, Urine 0-2 0 - 2 /HPF See orde r comments WBC 0-5 0 - 5 /HPF See order comments Squamous Epithelial, Urine 0-2 0 - 2 /HPF See order comments Bacteria, Urine None Seen None Seen See order comments Hyaline Casts, Urine 0-2 0 - 2 /LPF See order comments 03/15/2024 12:4 2 PM EST 03/15/2024 12:42 PM EST us Jeison Bhakta MD LAB URINE ORDERABLES Final Re sult Performing Organization Address [facility] Co de Phone Number [place] See order comments [place] [address] * (ABNORMAL) Creatinine (03/15/2024 12:30 PM EST) Creatinine Serum 1.84(H) 0.5 - 1.4 mg/dL See order comments eGFR 27 See order comments Comment: Chronic Kidney Disease: ??Estimated GFR < 60 mL/min/1.73m2 Severe Kidney Disease: ??Estimated GFR < 15 mL/min/1.73m2 03/15/2024 12:3 0 PM EST 03/15/2024 12:30 PM EST us Jeison Bhakta MD LAB BLOOD ORDERABLES Final Re sult Performing Organization Address [facility] Co de Phone Number [place] See order comments [place] [address] * (ABNORMAL) PTH, Intact (03/15/2024 12:30 PM EST) Parathyroid Hormone, Intact 369.7(H) 8.7 - 77.1 pg/mL See order comments 03/15/2024 12:3 0 PM EST 03/15/2024 12:30 PM EST us Jeison Bhakta MD LAB [id number] SOLICITED RESULTS Final Result Performing Organization Address [facility] Co de Phone Number [facility] See order comments [place] [address] * (ABNORMAL) Vitamin D 25 Hydroxy (03/15/2024 12:30 PM EST) Vitamin D, 25-Hydroxy 15.3(L) >30 ng/mL See order comments Comment: Health Based Reference Values* < 20 ??ng/mL ??Deficient 20-30 ng/mL ??Insufficient > 30 ??ng/mL ??Sufficient *Herb ALONSO. N Engl J Med. 2007;357:266-280 Care must be taken in interpreting Vitamin D results from different laboratories and methodologies. ??Published data demonstrated that results from patients undergoing hemodialysis may show a negative bias when tested with various automated 25-OH vitamin D assays when compared to LC-MS/MS. When testing samples from patients whose predominant form of Vitamin D is Vitamin D2, such as patients receiving Vitamin D2 supplementation, results that are subtherapeutic should be confirmed with another method such as LC-MS/MS. 03/15/2024 12:3 0 PM EST 03/15/2024 12:30 PM EST us Jeison Bhakta MD LAB BLOOD ORDERABLES Final Re sult [place] See order comments [place] [address] * (ABNORMAL) CBC and Differential (03/15/2024 12:30 PM EST) WBC 11.0(H) 4.8 - 10.8 X10*3/uL See order comments RBC 4.07(L) 4.20 - 5.50 X10*6/uL See order comments Hgb 11.3(L) 12.0 - 16.0 g/dl See order comments Hematocrit 37.4 37.0 - 47.0 % See order comments MCV 91.9 80.0 - 98.0 fL See order comments MCH 27.8 27.0 - 33.0 pg See order comments MCHC 30.2(L) 31.0 - 35.0 g/dl See order comments RDW 14.7 11.0 - 16.0 % See order comments Platelets 195 160 - 400 X10*3/uL See order comments MPV 9.9 9.4 - 12.3 fL See order comments Neutrophils % Auto 51.7 45 - 73 % See order comments Immature Granulocytes 0.4 0.0 - 0.4 % See order comments Lymphocytes Relative 38.4 20 - 40 % See order comments Monocytes 6.3 2 - 11 % See order comments Eosinophils Relative 2.9 0 - 4 % See order comments Basophils Relative 0.3 0 - 2 % See order comments nRBC Count 0.0 0.0 - 0.2 /100WBC See order comments Neutrophils Absolute 5.7 2.0 - 8.3 x10*3/uL See order comments Immature Grans (Absolute) 0.04(H) 0.00 - 0.03 X10*3/uL See order comments Lymphocytes Absolute 4.2 1.2 - 4.9 X10*3/uL See order comments Monocytes Absolute 0.7 0.1 - 1.2 X10*3/uL See order comments Eosinophils Absolute 0.3 0.0 - 0.4 X10*3/uL See order comments Basophils Absolute 0.0 0.0 - 0.2 X10*3/uL See order comments NRBC Absolute 0.000 0.0 - 0.012 X10*3/uL See order comments 03/15/2024 12:3 0 PM EST 03/15/2024 12:30 PM EST Jeison Bhakta MD LAB BLOOD ORDERABLES Final Re sult Performing Organization Address [facility] de Phone Number [place] See order comments [place] [address] * (ABNORMAL) BUN (03/15/2024 12:30 PM EST) BUN 23(H) 9 - 16 mg/dL See order comments 03/15/2024 12:3 0 PM EST 03/15/2024 12:30 PM EST Jeison Bhakta MD LAB BLOOD ORDERABLES Final Re sult Performing Organization Address [facility] Co de Phone Number [place] See order comments [place] [address] * Phosphorus (03/15/2024 12:30 PM EST) Phosphorus, Serum 3.0 2.7 - 4.5 mg/dL See order comments 03/15/2024 12:3 0 PM EST 03/15/2024 12:30 PM EST us Jeison Bhakta MD LAB BLOOD ORDERABLES Final Re sult Performing Organization Address [facility] de Phone Number [place] See order comments [place] [address] * Magnesium (03/15/2024 12:30 PM EST) Magnesium 2.1 1.6 - 2.6 mg/dL See order comments 03/15/2024 12:3 0 PM EST 03/15/2024 12:30 PM EST us Jeison Bhakta MD LAB BLOOD ORDERABLES Final Re sult Performing Organization Address [facility] Phone Number [place] See order comments [place] [address] * Calcium (03/15/2024 12:30 PM EST) Calcium 8.9 8.4 - 10.2 mg/dL See order comments 03/15/2024 12:3 0 PM EST 03/15/2024 12:30 PM EST us Jeison Bhakta MD LAB BLOOD ORDERABLES Final Re sult Performing Organization Address [facility] Phone Number [place] See order comments [place] [address] * Albumin (03/15/2024 12:30 PM EST) Albumin 3.8 3.5 - 5.0 g/dL See order comments 03/15/2024 12:3 0 PM EST 03/15/2024 12:30 PM EST us Jeison Bhakta MD LAB BLOOD ORDERABLES Final Re sult Performing Organization Address [facility] Phone Number [place] See order comments [place] [address] * (ABNORMAL) Electrolyte panel (03/15/2024 12:30 PM EST) Sodium 140 135 - 145 mmol/L See order comments Potassium 3.7 3.3 - 5.1 mmol/L See order comments Chloride 112(H) 96 - 108 mmol/L See order comments Bicarbonate (CO2) 20(L) 22 - 29 mmol/L See order comments Anion Gap 12 12 - 20 See order comments 03/15/2024 12:3 0 PM EST 03/15/2024 12:30 PM EST us Jeison Bhakta MD LAB BLOOD ORDERABLES Final Re sult [place] See order comments [place] [address] from Last 3 Months Insurance [place] Care Teams Body Hanger Relationship Specialty Start Date End Date Myra Persaud DO [address] [place] [address] PCP - General Family Medicine 07/31/21
--- OUTSIDE RECORDS SUMMARY | 2024-06-06 08:51 | XMS_ITS | Encounter Summary ---
Author Organization [employer] [facility] Address [address] [place] [address] [address]t [place] [address] Care Team Providers Care Emergency Registrar Name Role Phone Myra Persaud DO Primary Care Provider Shady Slade PharmD Unavailable Unavail able Elsi Nolasco PharmD Unavailable [phone] Encounter Details Date Type Department Care Team (Late st Contact Info) Description 04/17/2022 Telephone [facility] MEDICINE [address] [place] [phone] Myra Persaud DO [address] [place] [address] Social History Tobacco Use Types Packs/Day Years [...] Description 06/22/2024 9:00 AM EDT Medication Management [facility] MEDICINE [address] [place] [phone] Elsi Nolasco, PharmD [address] [place] [address] 06/27/2024 10:30 AM EDT Office Visit [facility] MEDICINE [address] [place] [phone] Myra Persaud DO [address] [place] [address] documented as of this encounter Visit Diagnoses Not on filedocumented in this encounter Care Teams Emergency Registrar Relationship Specialty Start Date End Date Myra Persaud DO [address] [place] [phone] PCP - General Family Medicine 10/18/13 Shady Slade PharmD [address] [place] [phone] Pharmacist Internal Medicine 06/09/22 11/23/22 Elsi Nolasco PharmD [address] [place] [phone] Pharmacist Internal Medicine 11/24/22 documented as of this encounter
--- OUTSIDE RECORDS SUMMARY | 2024-06-06 08:51 | XMS_ITS | Encounter Summary ---
Author Organization [employer] [facility] Address [address] [place] [address] [address]t [place] [address] Care Team Providers Care Exercise Physiologist Certified Name Role Phone Myra Persaud DO Primary Care Provider [phone] Shady Slade PharmD Unavailable Unavail able Elsi Nolasco PharmD Unavailable Encounter Details Date Type Department Care Team (Late st Contact Info) Description 04/10/2022 Orders Only [facility] MED [facility] PEDS [address] [place] [address] Myra Bland LPN Social History Tobacco Use Types Packs/Day [...] Description 06/22/2024 9:00 AM EDT Medication Management [facility] MEDICINE [address] [place] [phone] PuiaNikunjElsi, PharmD [address] [place] [address] 06/27/2024 10:30 AM EDT Office Visit [facility] MEDICINE [address] [place] [phone] Myra Persaud DO [address] [place], [place] [phone] documented as of this encounter Visit Diagnoses Not on filedocumented in this encounter Care Teams Exercise Physiologist Certified Relationship Specialty Start Date End Date Myra Persaud DO [address] [place] [phone] PCP - General Family Medicine 10/18/13 Shady Slade, PharmD [address] [place] [phone] Pharmacist Internal Medicine 06/09/22 11/23/22 Elsi Nolasco PharmD [address] [place] [phone] Pharmacist Internal Medicine 11/24/22 documented as of this encounter
== END 2024-06-06 09:03 | disposition home or self-care (01) ==
LOC: HO.HOS 08:33
PROVIDERS: PCP Family Medicine
DX: M18.11 Unilateral primary osteoarthritis of first carpometacarpal joint, right hand (principal)
CPT/HCPCS: 20600; 99213

== ENCOUNTER → 2024-06-06 08:33 | Outpatient (BNVA) | payer MEDICARE, MEDICAID, SELFPAY | PROVIDERS: PCP Family Medicine | DX: M18.11 Unilateral primary osteoarthritis of first carpometacarpal joint, right hand (principal) | CPT/HCPCS: 20600; 99212; J1010; J2003 ==

== ENCOUNTER 2024-07-14 07:56 | Outpatient (AMB) | payer MEDICARE, MEDICAID, SELFPAY ==
--- OUTSIDE RECORDS SUMMARY | 2024-07-14 08:00 | XMS_ITS | Encounter Summary ---
Author Organization [employer] [facility] Address [address] [facility] [address] [place] [address] Care Team Providers Care Ceramic Tile Installer Name Role Phone Myra Persaud DO Primary Care Provider [phone] Elsi Nolasco PharmD Unavailable [phone] Reason for Visit * Reason Onset Date Comments PT1 08/10/2023 Encounter Details Date Type Department Care Team ([facility] st Contact Info) Description 08/10/2023 Telephone [facility] MEDICINE [address] [place] [address] Myra Persaud DO [address] [place] [address] PT1 Social History Tobacco Use Types Packs/Day [...] / denial letter via mail. PT-1 Request [id number] Authorized [facility] PT-1 Request [id number] Pending - [facility] Pulmonology PT-1 Request [id number] Pending - [facility] Gastro [address] PT-1 Request [id number] Authorized [facility] Vascular * Telephone Encounter - Laureen Max - 08/10/2023 9:09 AM EDT 1.)Patient calling requesting PT1 Home Address verified: Y/N: Yes Provider name or facility name: [facility] Facility Address: [address] [place] [address] Escort needed: Y/N: No Do you have a wheelchair: Y/N: No If yes- Manual or electric: no Visits: 2-3 visit a month 2.)Patient calling requesting PT1 Home Address verified: Y/N: Yes Provider name or facility name: [facility] Pulmonology Center Facility Address: [address] [place] [address] Escort needed: Y/N: No Do you have a wheelchair: Y/N: No If yes- Manual or electric: no Visits: 2-3 visit a month 3.)Patient calling requesting PT1 Home Address verified: Y/N: Yes Provider name or facility name: [facility] Gastroenterology Facility Address: [address], [place] [address] Escort needed: Y/N: No Do you have a wheelchair: Y/N: No If yes- Manual or electric: no Visits: 2-3 visit a month 4.)Patient calling requesting PT1 Home Address verified: Y/N: Yes Provider name or facility name: [facility] Vascular Facility Address: [address], [address] [place] [address] Escort needed: Y/N: No Do you have a wheelchair: Y/N: No If yes- Manual or electric: no Visits: 2-3 visit a month documented in this encounter Plan of Treatment Upcoming Encounters Date Type Department Care Team (Late st Contact Info) Description 09/23/2024 9:00 AM EDT Medication Management [facility] MEDICINE [address] [place] [address] Puia, Elsi, PharmD [address] [place] [address] documented as of this encounter Goals Goal Patient Goal Type Associated Problems Recent Progress Patient-Stated? Author Hemoglobin A1c < 7.5 Result Component 7(06/22/2024 11:19 AM EDT) No DellogShady lópez, PharmD Record your blood sugar as directed Result Component No Puia, Elsi, PharmD documented as of this encounter Visit Diagnoses Not on filedocumented in this encounter Additional Health Concerns Assessment Noted Time PHQ-9 Depression Total Score: 1 08/03/19 24 10:16 AM EDT documented as of this encounter Care Teams Ceramic Tile Installer Relationship Specialty Start Date End Date Myra Persaud DO [address] [place] [address] PCP - General Family Medicine 10/18/13 Puia, Elsi, PharmD [address] [place] [phone] Pharmacist Internal Medicine 11/24/22 documented as of this encounter
--- OUTSIDE RECORDS SUMMARY | 2024-07-14 08:01 | XMS_ITS | Encounter Summary ---
Author Organization [facility] Address [address] [facility] 7t [place] [address] Care Team Providers Care Grill Chef Name Role Phone Myra Persaud DO Primary Care Provider [phone] Elsi Nolasco PharmD Unavailable [phone] Reason for Visit * Reason Onset Date Comments PT1 10/08/2023 Encounter Details Date Type Department Care Team ([facility] st Contact Info) Description 10/08/[address] [facility] MEDICINE [address] [place] [address] Myra Persaud DO [address] [place] [address] PT1 Social History Tobacco Use Types Packs/Day [...] Y/N: Yes Provider name or facility name: [facility] Facility Address: [address] [place] [address] Escort needed: Y/N: No Do you have a wheelchair: Y/N: No If yes- Manual or electric: no Visits: 4-5 times a month 2.)Home Address verified: Y/N: Yes Provider name or facility name: [facility] Facility Address: [address] [place] [id number] Escort needed: Y/N: No Do you have a wheelchair: Y/N: No If yes- Manual or electric: Visits: 7-8 times a month documented in this encounter Plan of Treatment Upcoming Encounters Date Type Department Care Team (Late st Contact Info) Description 09/23/2024 9:00 AM EDT Medication Management [facility] MEDICINE [address] [place] [address] Elsi Nolasco, RakeshD [address] [place] [address] documented as of this encounter Goals Goal Patient Goal Type Associated Problems Recent Progress Patient-Stated? Author Hemoglobin A1c < 7.5 Result Component 7(06/22/2024 11:19 AM EDT) No Shady Slade PharmD Record your blood sugar as directed Result Component No Elsi Nolasco PharmD documented as of this encounter Visit Diagnoses Not on filedocumented in this encounter Additional Health Concerns Assessment Noted Time PHQ-9 Depression Total Score: 1 08/03/19 24 10:16 AM EDT documented as of this encounter Care Teams Grill Chef Relationship Specialty Start Date End Date Myra Persaud DO [address] [place] [address] PCP - General Family Medicine 10/18/13 Elsi Nolasco PharmD [address] [place] [address] Pharmacist Internal Medicine 11/24/22 documented as of this encounter
--- OUTSIDE RECORDS SUMMARY | 2024-07-14 08:01 | XMS_ITS | Encounter Summary ---
Author Organization [facility] Address [address] [facility] 7t [place] [address] Care Team Providers Care Plate Developer Name Role Phone Myra Persaud DO Primary Care Provider [phone] Elsi Nolasco PharmD Unavailable [phone] Reason for Visit * Reason Comments Care Coordination CHW outreach for SDO H PT-1 and food needs-referral completed Encounter Details Date Type Department Care Team (Latest Contact Info) Description 07/13/2024 Patient Outreach [facility] MEDICINE [address] [place] [address] Myra Persaud DO [address] [place], [place] [phone] Care Coordination (CHW outreach for SDOH PT-1 and food needs-referral completed /) Social History Tobacco Use Types Packs/Day Years [...] before you got money to buy more: Often true 06/20/2024 Within the past 12 months,th e food you bought just didn't last and you didn't have enough money to get more: Often true Transportation Answer Date Recorded In the past [...] Recorded Patient Health Questionnaire-2 Score 1 08/03/2023 Internet Access Answer Date Recorded Internet Access Q1 Yes 06/20/2024 Internet Access Q2 Not on file 06/20/2024 Comments Unknown Sex and Gender Information Value Date Recorded Sex Assigned at Female 01/27/2022 10:20 AM EDT Legal Sex Female 10:20 AM EDT Gender Identity Female 01/27/2022 10:20 AM EDT Sexual Orientation Straight 01/27/2022 10 :20 AM EDT documented as of this encounter Progress Notes * Yefri Walker - 07/13/2024 11:17 AM EDT CHW Yefri Walker, placed outbound call to patient for assistance with SDOH as a referral was received by the provider. Patient's name and were confirmed. Patient screened positive for the following SDOH food insecurities. Patient states family in on SNAP program at this time. CHW referral patient to the local list of pantries in the area for help. PT-1 requested was send out in behalf of patient for futures appt. Patient verbalizes understanding, and able to agree with plan to follow up.Patient educated on extended clinic hours on Mondays through Wednesdays, and Walk-In Urgent Care Located in [facility]. Patient provided with after-hours line for [facility], , which offer night time triage service and option to transfer to python django developer provider if needed. documented in this encounter Plan of Treatment Upcoming Encounters Date Type Department Care Team (Late st Contact Info) Description 09/23/2024 9:00 AM EDT Medication Management [facility] MEDICINE [address] [place] [address] Elsi Nolasco PharmD [address] [place] [address] documented as of this encounter Goals Goal Patient Goal Type Associated Problems Recent Progress Patient-Stated? Author Hemoglobin A1c < 7.5 Result Component 7(06/22/2024 11:19 AM EDT) No Shady Slade PharmDanielle Record your blood sugar as directed Result Component No Elsi Nolasco PharmD documented as of this encounter Visit Diagnoses Not on filedocumented in this encounter Additional Health Concerns Assessment Noted Time PHQ-9 Depression Total Score: 1 08/03/19 24 10:16 AM EDT documented as of this encounter Care Teams Plate Developer Relationship Specialty Start Date End Date Myra Persaud DO [address] [place] [phone] PCP - General Family Medicine 10/18/13 Elsi Nolasco PharmD [address] [place] [address] Pharmacist Internal Medicine 11/24/22 documented as of this encounter
--- OUTSIDE RECORDS SUMMARY | 2024-07-14 08:01 | XMS_ITS | Encounter Summary ---
Author Organization [employer] Address [address] [facility] [address] 7[address] [place] [address] Care Team Providers Care Research Program Intern Name Role Phone Cori Myra Primary Care Provider [phone] Elsi Nolasco PharmD Unavailable [phone] Encounter Details Date Type Department Care Team ([facility] Contact Info) Description 09/09/2023 Orders Only [facility] [address] [place] [address] JcBonyn, OD [address] [place] [address] Presbyopia (Primary Dx) Social History Tobacco Use [...] is your housing situation today? I have rois guan 07/17/[address] you [...] Description 09/23/2024 9:00 AM EDT Medication Management [facility] MEDICINE [address] [place] [address] Elsi Nolasco PharmD [address] [place] [address] documented as of this encounter Goals Goal Patient Goal Type Associated Problems Recent Progress Patient-Stated? Author Hemoglobin A1c < 7.5 Result Component 7(06/22/2024 11:19 AM EDT) No Shady Slade PharmD Record your blood sugar as directed Result Component No Elsi Nolasco, PharmD documented as of this encounter Visit Diagnoses Diagnosis Presbyopia- Primary documented in this encounter Additional Health Concerns Assessment Noted Time PHQ-9 Depression Total Score: 1 08/03/19 24 10:16 AM EDT documented as of this encounter Care Teams Research Program Intern Relationship Specialty Start Date End Date Myra Persaud DO [address] [place] [phone] PCP - General Family Medicine 10/18/13 Elsi Nolasco, PharmD [address] [place] [phone] Pharmacist Internal Medicine 11/24/22 documented as of this encounter
--- OUTSIDE RECORDS SUMMARY | 2024-07-14 08:01 | XMS_ITS | Encounter Summary ---
Author Organization [facility] Address [address] [facility] 7t [place] [address] Care Team Providers Care Wiring Mechanic Name Role Phone Myra Persaud DO Primary Care Provider [phone] Elsi Nolasco PharmD Unavailable [phone] Reason for Visit * Reason Onset Date Comments PT1 07/13/2024 Encounter Details Date Type Department Care Team ([facility] st Contact Info) Description 07/13/2024 Telephone [facility] MEDICINE [address] [place] [address] Myra Persaud DO [address] [place] [address] PT1 Social History Tobacco Use Types Packs/Day [...] * Telephone Encounter - Laureen Max - 07/13/2024 11:05 AM EDT 1.)Patient calling requesting PT1 Home Address verified: Y/N: Yes Provider name or facility name: [facility] Facility Address: [address] [place] [address] Escort needed: Y/N: No Do you have a wheelchair: Y/N: No If yes- Manual or electric: no Visits: 2-3 visit a month 2.)Home Address verified: Y/N: Yes Provider name or facility name: [facility] Facility Address: [address] [place] [address] Escort needed: Y/N: No Do you have a wheelchair: Y/N: No If yes- Manual or electric: Visits: 7-8 times a month documented in this encounter Plan of Treatment Upcoming Encounters Date Type Department Care Team ([facility] st Contact Info) Description 09/23/2024 9:00 AM EDT Medication Management [facility] MEDICINE [address] [place] [address] Elsi Nolasco, RakeshD [address] [place] [address] documented as of this encounter Goals Goal Patient Goal Type Associated Problems Recent Progress Patient-Stated? Author Hemoglobin A1c < 7.5 Result Component 7(06/22/2024 11:19 AM EDT) No Shady Slade, Amina Record your blood sugar as directed Result Component No Elsi Nolasco PharmD documented as of this encounter Visit Diagnoses Not on filedocumented in this encounter Additional Health Concerns Assessment Noted Time PHQ-9 Depression Total Score: 1 08/03/19 24 10:16 AM EDT documented as of this encounter Care Teams Wiring Mechanic Relationship Specialty Start Date End Date Myra Persaud DO [address] [place] [address] PCP - General Family Medicine 10/18/13 Elsi Nolasco PharmD [address] [place] [address] Pharmacist Internal Medicine 11/24/22 documented as of this encounter
--- OUTSIDE RECORDS SUMMARY | 2024-07-14 08:01 | XMS_ITS | Encounter Summary ---
Author Organization [facility] Address [address] [place] [address] 7t [place] [address] Care Team Providers Care Alterations Sewer Name Role Phone Myra Persaud DO Primary Care Provider [phone] DelShady wong PharmD Unavailable Unavail able Pulanette Elsi PharmD Unavailable Encounter Details Date Type Department Care Team (Late st Contact Info) Description 04/09/2022 Orders Only [facility] MEDICINE [address] [place] [phone] Patricia Hogan LPN Social History Tobacco Use [...] 9:00 AM EDT Medication Management [facility] MEDICINE [address] [place] [address] Puia, Elsi, PharmD [address] [place] [address] documented as of this encounter Visit Diagnoses Not on filedocumented in this encounter Care Teams Alterations Sewer Relationship Specialty Start Date End Date Myra Persaud DO [address] [place] [address] PCP - General Family Medicine 10/18/13 Shady Slade, PharmD [address] [place] [address] Pharmacist Internal Medicine 06/09/22 11/23/22 Elsi Nolasco, RakeshD [address] [place], [place] [phone] Pharmacist Internal Medicine 11/24/22 documented as of this encounter
--- OUTSIDE RECORDS SUMMARY | 2024-07-14 08:01 | XMS_ITS | Encounter Summary ---
Author Organization [facility] Address [address] [place] [address] 7t [place] [address] Care Team Providers Care Assembler Seat Name Role Phone Myra Persaud DO Primary Care Provider DelShady wong PharmD Unavailable Unavail able Nikunj Nolascoyssa PharmD Unavailable [phone] Encounter Details Date Type Department Care Team (Late st Contact Info) Description 04/10/2022 Orders Only [facility] [address] [place] [address] Myra Bland LPN Social History Tobacco Use [...] Description 09/23/2024 9:00 AM EDT Medication Management [facility] MEDICINE [address] [place] [address] Puia, Elsi, PharmD [address] [place] [address] documented as of this encounter Visit Diagnoses Not on filedocumented in this encounter Care Teams Assembler Seat Relationship Specialty Start Date End Date Myra Persaud DO [address] [place] [address] PCP - General Family Medicine 10/18/13 Shady Slade, PharmD [address] [facility] [place] [address] Pharmacist Internal Medicine 06/09/22 11/23/22 Elsi Nolasco, RakeshD [address] [place] [address] Pharmacist Internal Medicine 11/24/22 documented as of this encounter
--- OUTSIDE RECORDS SUMMARY | 2024-07-14 08:01 | XMS_ITS | Clinical Summary ---
Author Organization [employer] Address [address] [place] [address] 7[address] [place] [address] Care Team Providers Care Firearms Specialist Name Role Phone Cori Myra Primary Care Provider Elsi Nolasco PharmD Unavailable [phone] Allergies Active Allergy Reactions Criticality Noted Date Comments Simvastatin 07/11/2010 Other reaction(s): elevated LFTs Medications amLODIPine (Norvasc) 2.5 MG tablet Take 2.5 mg by mouth Once daily. 023 Active albuterol 108 (90 Base) MCG/ACT inhaler INHALE 2 PUFFS EVERY 4 TO 6 HOURS NEEDED FOR COUGH, WHEEZING, OR SHORTNESS OF BREATH 18 g 11 023 Active ketorolac (Acular) 0.5 % ophthalmic solution 024 Active Diclofenac Sodium 1 % gelIndications:Bill n Apply 2 g topically if needed in the morning, at noon, in the evening, and at bedtime (pain). 150 g 3 024 Active insulin pen needle (UltiGuard SafePack Pen Needle) 32G x 4 mm miscIndications:Ty pe 2 diabetes mellitus with stage 4 chronic kidney disease, with long-term current use of insulin ([facility]) Use as instructed three times daily for insulin injections 100 each 11 024 Active Eye Itch Relief 0.035 % solution INSTILL 1 DROP IN EACH EYE TWICE DAILY 024 Active Zenpep 3000-48082 units capsule delayed-release particles capsule TAKE 2 CAPSULES BY MOUTH THREE TIMES DAILY WITH MEALS 024 Active calcitriol (Rocaltrol) 0.25 MCG capsule TAKE 1 CAPSULE BY MOUTH EVERY OTHER DAY IN THE MORNING Active ergocalciferol (Vitamin D2) 1.25 MG (49536 UT) capsule TAKE 1 CAPSULE BY MOUTH EVERY MONTH Active TRUEplus Lancets 33G miscIndications:Ty pe 2 diabetes mellitus without complications ([facility]) TEST BLOOD SUGAR THREE TIMES DAILY 100 each Active glucose blood (FREESTYLE LITE) test stripIndications:T ype 2 diabetes mellitus without complications ([facility]) TEST BLOOD SUGAR THREE TIMES DAILY 100 [...] prior to dental procedure 2 capsule 3 Active folic acid (Folvite) 1 MG tablet TAKE 1 TABLET BY MOUTH EVERY MORNING 30 tablet 11 Active atorvastatin (Lipitor) 80 MG tabletIndications: Other hyperlipidemia TAKE 1 TABLET BY MOUTH AT BEDTIME 30 tablet Active pantoprazole (ProtoNix) 40 MG EC tabletIndications: [...] BY MOUTH AT BEDTIME 30 tablet 5 Active Aspirin Low Dose 81 MG EC tabletIndications: Type 2 diabetes mellitus with other specified complication, unspecified 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 ([facility]) TAKE 1 TABLET BY MOUTH EVERY MORNING 90 tablet 3 Active calcium carbonate (Calcium Antacid) 500 MG chewable tabletIndications: Osteopenia, unspecified location CHEW 1 TABLET BY MOUTH TWICE DAILY IN THE MORNING AND IN THE EVENING FOR HEARTBURN 180 tablet 1 Active loratadine (Claritin) 10 MG tabletIndications: Allergic rhinitis, unspecified seasonality, unspecified trigger TAKE 1 TABLET BY MOUTH EVERY MORNING 90 tablet 1 Active glucose 4 g chewable tabletIndications: Type 2 diabetes mellitus with stage 4 chronic kidney disease, with long-term current use of insulin ([facility]) Chew 4 tablets as directed for low blood sugar (< 70 mg/dL). Repeat as needed. 40 tablet 5 Active empagliflozin (Jardiance) 10 MGIndications:Type 2 diabetes mellitus with stage 4 chronic kidney disease, with long-term current use of insulin ([facility]) Take 1 tablet (10 mg) by mouth in the morning. 30 tablet 5 Active Linzess 145 MCG capsule Take 1 capsule by mouth Once per day. Active Alcohol Swabs (Alcohol Prep) 70 % padsIndications:Ty pe 2 diabetes mellitus with stage 4 chronic kidney disease, with long-term current use of insulin ([facility]) Use prior 6 times daily prior to [...] MEALS AND BEFORE SUPPER 60 tablet 1 025 Active docusate sodium (Colace) 100 MG capsuleIndications :Chronic constipation TAKE 1 CAPSULE BY MOUTH TWICE DAILY IN THE MORNING AND IN THE EVENING 180 capsule 3 025 Active carvedilol (Coreg) 3.125 MG tablet TAKE 1 TABLET BY MOUTH TWICE DAILY IN THE MORNING AND IN THE EVENING WITH FOOD 180 tablet 3 025 Active glucagon (Baqsimi Two Pack) 3 MG/DOSE nasal powderIndications: Type 2 diabetes mellitus with stage 4 chronic kidney disease, with long-term current use of insulin (CMS/HCC) Administer 3 mg via 1 device into the nostril for hypoglycemia with loss of consciousness. If no response after 15 minutes administer an additional dose via 2nd device into other nostril. 2 each 1 025 Active insulin aspart (NovoLOG FLEXPEN) 100 UNIT/ML penIndications:Typ e 2 diabetes mellitus with stage 4 chronic kidney disease, with long-term current use of insulin (CMS/HCC) Inject 6 Units under the skin with breakfast AND 10 Units with evening meal. Use 1/2 dose, as directed, if eating low/no carb.. 15 mL 2 025 Active insulin degludec (Tresiba FlexTouch) 100 UNIT/ML injectionIndicatio ns:Type 2 diabetes mellitus with stage 4 chronic kidney disease, with long-term current use of insulin (CMS/HCC) Inject 38 Units under the skin in the evening. 15 mL 5 025 Active glucagon (Baqsimi Two Pack) 3 MG/DOSE nasal powderIndications: Type 2 diabetes mellitus with stage 4 chronic kidney disease, with long-term current use of insulin (CMS/HCC) Administer 3 mg via 1 device into the nostril for hypoglycemia with loss of consciousness. If no response after 15 minutes administer an additional dose via 2nd device into other nostril. 2 each 1 023 06/22 Discontinued( Reorder (will not trigger notification to Pharmacy)) carvedilol (Coreg) 3.125 MG tablet TAKE 1 TABLET BY MOUTH TWICE DAILY IN THE MORNING AND IN THE EVENING WITH FOOD 180 tablet 3 024 06/22 Discontinued docusate sodium (Colace) 100 MG capsuleIndications :Chronic constipation TAKE 1 CAPSULE BY MOUTH TWICE DAILY IN THE MORNING AND IN THE EVENING 180 capsule 3 024 06/22 Discontinued insulin degludec (Tresiba FlexTouch) 100 UNIT/ML injectionIndicatio ns:Type 2 diabetes mellitus with stage 4 chronic kidney disease, with long-term current use of insulin (CMS/HCC) Inject 36 Units under the skin in the evening. 15 mL 5 024 06/24 Discontinued( Reorder (will not trigger notification to Pharmacy)) insulin aspart (NovoLOG FLEXPEN) 100 UNIT/ML penIndications:Typ e 2 diabetes mellitus with stage 4 chronic kidney disease, with long-term current use of insulin (CMS/HCC) Inject 6 Units under the skin with breakfast AND 12 Units with evening meal. Use 1/2 dose, as directed, if eating low/no carb.. 15 mL 2 024 06/24 Discontinued( Reorder (will not trigger notification to Pharmacy)) Active Problems Problem Noted Date Diagnosed Date [...] to avoid any NSAIDS Acute pancreatitis 04/21/2022 3 Gastrointestinal hemorrhage with melena 04/21/2022 05/14/2022 Acute non-ST segment elevati on myocardial infarction 09/10/2017 05/14/2022 Encounters Date Type Department Care Team Description 07/13/2024 Patient Outreach [facility] [address] [place] [phone] JurMyra shields DO Care Coordination (CHW outreach for SDOH PT-1 and food needs-referral completed /) 07/13/[address] [address] Myra Persaud DO PT1 06/27/2024 Travel 06/22/2024 Travel 06/22/[address] [address] Myra Persaud DO Chronic constipation 06/20/2024 Patient Outreach [address] [address] Myra Persaud DO Care Coordination (CHW outreach for SDOH food needs-referral completed /) 06/20/2024 Patient Outreach [address] [address] Myra Persaud DO Care Coordination (CHW outreach for SDOH food needs-referral completed /) 06/20/2024 Patient Outreach [address] [address] Myra Persaud DO Pre-visit Planning (SDOH Screening positive and Tobacco screening negative) 05/21/[address] [address] Myra Persaud DO Acute gastritis, presence of bleeding unspecified, unspecified gastritis type 05/12/[address] [address] Myra Persaud DO Recall Appt. 05/12/2024 Travel 04/21/[address] [address] Mery Benavides, EBEN Med B form from Last 3 Months Immunizations Name Administration [...] EDT Medication Management [facility] [address] [place] [address] Elsi Nolasco, PharmD [address] [place] [address] Health Maintenance Due Date Last Done Comments CT Colonography 1955 Dental Oral Exam 1955 Dental Prophylaxis 1956 FIT DNA/Cologuard 1955 FIT 1956 Sigmoidoscopy 1956 Diabetes: Foot Exam 1966 Alcohol/Substance Use Screening 1968 Hepatitis A Vaccines (1 of 2 - Risk 2-dose series) 10/21/1975 FOBT 11/07/2020 11/08/2019 Lipid Panel 07/09/2024 07/10/2023, 04/30, 06/28/2021, Additional history exists Depression Screening 08/02/2024 08/03/2023, 08/03/19 Diabetes: Hemoglobin A1C 09/22/2024 025, 03/24/2024, 12/21/2023, Additional history exists Mammogram 10/15/2024 10/16/2023, 09/2022, 10/03/2022, Additional history exists Dental X-Ray: Bitewings 12/02/2024 12/02/2023, 11/11 Tobacco Screening 02/07/2025 02/08/2024 SDOH Screening 06/20/2025 06/20/2024 Eye Exam 02/02/2026 02/03/2024, 1108/2023, 02/03/2024, Additional history exists Dental X-Ray: Full [...] Diagnosis Comments POCT GLYCATED HEMOGLOBIN, TOTAL Routine 06/22/2024 11:19 AM EDT Type 2 diabetes mellitus with stage 4 chronic kidney disease, with long-term current use of insulin ([facility]) INTRAORAL - COMPLETE SERIES OF RADIOGRAPHIC IMAGES [...] Maintenance Results * (ABNORMAL) POCT HGB A1C (06/22/2024 11:19 AM EDT) Hemoglobin A1C 7.0(A) 4.0 - 6.0 % Blood 06/22/2024 11:1 9 AM EDT us Myra Persaud DO POINT OF CARE TEST ENTER/HUMBERTO T ORDERABLES Final Result * BI Mammogram Screening Tomosynthesis Bilateral (10/16/2023 1:25 PM EDT) Anatomical Region Laterality Modality Breast Bilateral Mammography 10/16/2023 1:25 PM EDT Narrative 11/10/2023 2:45 PM EDT ? [facility] ? [address] ?[place] [address] ? Mammography Report ? Signed ? Patient: Denise,Iris N ?MR#: [id number] ?? 36 ? : 1955 ?Acct:[id number] ? Age/Sex: 67 / F ?ADM Date: 10/16/23 ? Loc: HO.MAMMO ? Attending Dr: Turner Arana PA ? Ordering Physician: TURNER ARANA ? Results: 1Negat ?? leroy ? Date of Service: 10/16/23 ?Follow Up: 1 Year From Orig ?? inal Mammogram ? Procedure(s): MM tomosynthesis screening BI ?? Accession Number(s): [id number] ? cc: TURNER ARANA ; Myra Persaud [...] 1440 ? DD/ 1325 ? TD/TT: ? Receiving Checker: ? Procedure Note Parkerrodrigoelygaby, Image - 11/10/2023 [facility] [address] [place] [address] [place] [address] Mammography Report Signed Patient: Amy Walker#: [id number] 36 : 7Acct:[id number] Age/Sex: 67 / FADM Date: 10/16/23 Loc: [facility] Attending Dr: Turner Arana PA Ordering Physician: TURNER ARANAResults: 1Negat leroy Date of Service: 10/16/23Follow Up: 1 Year From Orig inal Mammogram Procedure(s): MM tomosynthesis screening BI Accession Number(s): [id number] cc: TURNER ARANA ; Myra Persaud DO EXAMINATION: MM SCREENING DIGITAL BREAST TOMOSYNTHESIS, [...] in OV> 11/10/23 1440 DD/ 1325 TD/TT: Receiving Checker: [facility] External Provider IMG BI PROCEDURES Final Result * Lipid Panel, Standard (07/10/2023 10:01 AM EDT) Triglycerides 86 <150 mg/dL [facility] Comment:Desirable Triglyceri de: less than 150 mg/dLBorderline High Triglyceride 150-199 mg/dLHigh Triglyceride: 200-499 mg/dLVery High Triglyceride: greater than or equal to 5OO mg/dL Cholesterol 117 <200 mg/dL [facility] Comment:Desirable Cholestero l: less than 200 mg/dLBorderline High Cholesterol: 200-239 mg/dLHigh Cholesterol: greater than 239 mg/dL LDL Cholesterol Calculated 45 <100 mg/dL [facility] Comment:Desirable LDL: less than 100 mg/dLNear Optimal/Above Optimal LDL: 110- 129 mg/dLBorderline High LDL: 130-159 mg/dLHigh LDL: 160-189 mg/dLVery High LDL: greater than or equal to 190 mg/dL HDL Cholesterol 55 >40 mg/dL [facility] Comment:Desirable HDL: great er than 40 mg/dL Note: This HDL assay may give artificially low results in patients with liver disease. 07/10/2023 10:0 1 AM EDT 07/10/2023 11:59 AM EDT Myra Persaud DO LAB BLOOD ORDERABLES Final R esult Performing Organization Address [facility] Co de Phone Number [facility] [address] [place] [address] [phone] * HEPATITIS B SURFACE ANTIBODY (09/09/2021 [...] [facility] 09/09/2021 4:20 PM EDT Jeison Bhakta MD HISTORICAL/NON ORDERABLE LABS Final Result Performing Organization Address [facility] Co de Phone Number [facility] [address] [place] [phone], * THINPREP TIS PAP (06/25/2021 9:16 AM [...] has been evaluated with computer assisted technology. [facility] Application Development Intern : SEE COMMENT [facility] Comment: DCR, CT(ASCP) CT screening location: [address] ??[phone] Interpretation/R esult: Negative for intraepithelial lesion or malignancy. [facility] LMP: NONE [facility]IVEN [facility] Prev. BX: NONE [facility]IVEN [facility] Prev. PAP: NONE [facility]IVEN [facility] SOURCE: None given [facility] Statement Of Adequacy: SATISFACTORY FOR EVALUATION [facility] 06/25/2021 9:16 AM EDT Myra Persaud DO LAB PATHOLOGY ORDERABLES Fin al Result Performing Organization Address [facility] Co de Phone Number [facility] [address] * HPV mRNA E6/E7 REFLEX TO HPV 16, 18/45 (06/25/2021 9:16 AM EDT) HPV nRNA E6/E7 Not Detected Not Detected [facility] Comment: Methodology: Laborer [employer]bark-Mediated Amplification This assay detects E6/E7 viral messenger RNA (mRNA) from 14 high-risk HPV types (16,18,31,33,35,39,45,51,52,56,58,59,66,68). ? The analytical performance characteristics of this assay have been determined by [employer]. The modifications have not been cleared or approved by the FDA. This assay has been validated pursuant to the CLIA regulations and is used for clinical purposes. ?? For additional information, please refer to http://education.[employer]phi/faq/SQX454m1 (This link if provided for information/ educational purposes only.) 06/25/2021 9:16 AM EDT Myra Persaud DO LAB CYTOLOGY ORDERABLES Jeane l Result Performing Organization Address [facility]/ZIP Co de Phone Number [facility] [address] [place] [address], * (ABNORMAL) OCCULT BLOOD STOOL (11/08/2019 9:39 AM EDT) OCCULT BLOOD STOOL POS(AA) NEG [facility] 11/08/2019 9:39 AM EDT us Historical Provider LAB BODY FLUIDS AND STOOL S ORDERABLES Final Result [facility] [address] from Last 3 Months or Most Recently Relevant to Health Maintenance Insurance [address] [place] [address] MEDICARE [facility] STANDARD [address] [place] [address] [facility] ST[facility] ADULT Care Teams Firearms Specialist Relationship Specialty Start Date End Date Myra Persaud DO [address] [place] [address] PCP - General Family Medicine 10/18/13 Elsi Nolasco PharmD [address] [place] [address] Pharmacist Internal Medicine 11/24/22
--- OUTSIDE RECORDS SUMMARY | 2024-07-14 08:01 | XMS_ITS | Encounter Summary ---
Author Organization [employer] [facility] Address [address] [place] [address] [address] [place] [address] Care Team Providers Care Cloth Worker Name Role Phone Myra Persaud DO Primary Care Provider Shady Slade PharmD Unavailable Unavail able Elsi Nolasco PharmD Unavailable Encounter Details Date Type Department Care Team (Late st Contact Info) Description 04/17/2022 Telephone [facility] [address] [place] [phone] Myra Persaud DO [address] [place] [address] Social History Tobacco Use Types Packs/Day Years [...] Description 09/23/2024 9:00 AM EDT Medication Management [facility] [address] [place] [phone] Elsi Nolasco, PharmD [address] [place] [address] documented as of this encounter Visit Diagnoses Not on filedocumented in this encounter Care Teams Cloth Worker Relationship Specialty Start Date End Date Myra Persaud DO [address] [place] [address] PCP - General Family Medicine 10/18/13 Shady Slade, PharmD [address] [place] [address] Pharmacist Internal Medicine 06/09/22 11/23/22 Elsi Nolasco PharmD [address] [place] [address] Pharmacist Internal Medicine 11/24/22 documented as of this encounter
--- OUTSIDE RECORDS SUMMARY | 2024-07-14 08:01 | XMS_ITS | Clinical Summary ---
Author Organization [facility] Address [address] [place] [phone] Phone Care Team Providers Care Plugger Man Name Role Phone Myra Persaud DO Primary [...] 1 (one) time each day Active pancrelipase, Cxu-Rryj-Oidn, (Creon) 68[address] units capsule Take 1 capsule by mouth [...] mouth every 8 (eight) hours if needed 04/22/19 23 Active ondansetron (ZOFRAN) 4 MG tablet Take 4 mg by mouth every 8 (eight) hours if needed for nausea or vomiting Active amLODIPine-jian rvastatin (CADUET) 2.5-20 MG per tablet Take 1 tablet by mouth 1 (one) time each day Active glipiZIDE (GLUCOTROL) 10 MG tablet Take 10 mg by mouth 07/10/19 24 Active Insulin Degludec (Tresiba) 100 UNIT/ML solution Inject 30 Units under the skin Active Empagliflozin (Jardiance) 10 MG tablet Take 10 mg by mouth 1 (one) time each day in the morning Active amLODIPine (NORVASC) 2.5 MG tablet TAKE 1 TABLET BY MOUTH EVERY MORNING 90 tablet 3 03/27/20 24 Active Linzess 145 MCG capsule Take 1 capsule by mouth in the morning. 03/18/20 24 Active calcitriol (ROCALTROL) 0.25 MCG capsule Take 1 capsule (0.25 mcg total) by mouth every other day TAKE 1 CAPSULE BY MOUTH EVERY OTHER DAY IN THE MORNING 45 capsule 1 03/31/19 25 026 Active ergocalciferol 1.25 MG (85551 UT) capsuleIndicat ions:Stage 3b chronic kidney disease (HCC) TAKE 1 CAPSULE BY MOUTH EVERY MONTH 1 capsule 3 06/24/19 25 Active ergocalciferol 1.25 MG (02008 UT) capsuleIndicat ions:Stage 3b chronic kidney disease (HCC) TAKE 1 CAPSULE BY MOUTH EVERY MONTH 1 capsule 3 03/03/20 24 025 Discontinued Active Problems Problem Noted Date Diagnosed [...] Encounters Date Type Department Care Team Description 06/23/2024 Refill [facility] [address] [place] [address] Jeison Bhakta MD Stage 3b chronic kidney disease (HCC) from Last 3 Months Immunizations Immunization Administration Dates Next Due Influenza Split 12/12/2011 [...] Office Visit [facility] [address] [place] [address] Jeison Bhakta MD [address] [facility] [address] [place] [address] Health Maintenance Due Date Last Done Comments [...] 07/10/2023, 05/14/2022, Additional history exists Pneumococcal Vaccine: 50+ Years Completed 06/17/2022, 09/03/2017, 03/18/2012 Pneumococcal Vaccine: Peds ( 0 to 5 Years) and At-Risk Patients (6 to 49 Years) Discontinued 06/17/2022, 09/03/2017, 03/18/2012 Influenza Vaccine Completed 12/21/2023, , 06/07/2021, Additional history exists Insurance Medicaid [place] Medicare Medicaid [place] Medicare Medicaid [place] Care Teams Plugger Man Relationship Specialty Start Date End Date Myra Persaud DO [address] [place] [address] PCP - General Family Medicine 07/31/21
--- NOTE | 2024-07-14 08:04 | A.OFFVIS_ITS ---
Vital Signs 07/14/24 08:05 Height 5 ft 1 in Weight 186 lb BMI 35.1 BP 122/67 Blood Pressure Location Lt brachial Position Sitting Pulse 70 Pulse Oximetry (%) 99 Oxygen Delivery Method Room Air Intake Visit Reasons: 4 mo f/u Intake Note: Patient 4 month follow up for Abnormal CT scan, gastrointestinal tract Patient cc: nauseas, acid reflux and med is not helping, denies any other GI issues for today. Utility Bill Collection Clerk Required: Yes Utility Bill Collection Clerk Name: [facility] Interpeter Accompanied by: Self / Same As Patient Allergies simvastatin [SIMVASTATIN] Adverse Reaction (Unknown, Verified 07/14/24 08:03) Unknown Medication List - Last Reconciled 07/14/24 by Migue Breen MD acetaminophen ER (Arthritis Pain Reliever) 650 mg PO Q12H albuterol sulfate 90 mcg/actuation 2 puffs inhalation Q4-6H PRN amlodipine-celecoxib 2.5-200 mg 1 tab PO DAILY aspirin 81 mg PO DAILY atorvastatin (Lipitor) 80 mg PO BEDTIME baclofen 1 tab PO TID PRN budesonide-formoterol 160-4.5 mcg/actuation 2 puffs inhalation DAILY calcitriol 0.25 mcg PO DAILY calcium carbonate (Calcium Antacid) 1 tab PO BID PRN carvedilol 3.125 mg PO BID empagliflozin (Jardiance) 10 mg PO DAILY fluticasone propionate 110 mcg/actuation (Flovent HFA) 2 puffs inhalation BID folic acid 1 mg PO DAILY gabapentin 1 cap PO BEDTIME glipizide 10 mg PO QPM [insulin zari 30 units miscellaneous DAILY] ketotifen fumarate 0.025%(0.035%) 1 drp ophthalmic (eye) BID linaclotide (Linzess) 145 mcg PO DAILY 30 days alotrn-tsgciblo-bahjjfk 3,000-10,000 -14,000-unit (Zenpep) 2 caps PO TID 60 days loratadine 10 mg PO DAILY ondansetron 4 mg PO Q8H PRN 60 days pantoprazole (Protonix) 40 mg PO BID sennosides-docusate sodium 8.6-50 mg (Senna Plus) 2 tab-caps (2 x 8.6-50 mg) PO BEDTIME 60 days HPI HPI 4 mo f/u: Details: GI CLINIC VISIT FOR THIS 68-YEAR-OLD WOLOF-SPEAKING FEMALE TO DISCUSS ABD CT RESULTS. Pt was hospitalized at [facility] 07/28 to 07/31/21 with rhabdomyolysis and abdominal CT scan showed enteritis. 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 Stool are hard and associated with straining. Sees Dr Bhakta for renal issues Lab results reviewed Continues to have constipation - has a BM daily with passage of hard stools Denies abdominal pain. Nausea improved with medications Sees Dr Bhakta for renal disease Reports she was diagnosed with DM 7 years ago PAST VISIT: Patient cc: acid reflex on and off and some constipation. Denies any other GI issues. Patient cc: abdominal discomfort with burning sensation and some nauseas, denies any other GI issues. Pt is accompanied by her daughter and infant grand daughter. Complains of a sensation of heat and nausea in the stomach - almost every morning. Denies taking Ondansetron - refill sent Appetite is fine and denies constipation. Elevated Cr is sees a School Bus Mechanic - has FU appt in Jul, 2023. Appetite is good and denies any abdominal pain or diarrhea She has the sensation that she has diarrhea and does not have diarrhea. Has a BM twice a day with passage of hard stools. Denies having to strain or push. Has been gaining. Feels like she has to have a BM and does unable to have one. Stays in the toilet when she feels she needs to have a BM. Unable to sleep last night due to leg and back pain. Scheduled to see Nephrology on 09/09/21 Appetite is good and has gained some weight over the past month abd pain is getting better with the medication Everything I eat gives me diarrhea Diarrhea when she wakes up in the morning. Denies ETOH abuse. Has'nt weighed herself recently Pt is accompanied by her daughter who interpreted abdominal pain with every solid food, Nauseas, GERD, and diarrhea. Denies any constipation or vomit . Pt complains of 10/10 upper abdominal pain for the past month. Abd pain can radiate into the chest and denies radiation to the back. Pain is intermittent and feels like a tightness Patient denies symptoms of abdominal pain, heartburn. Denies recent change in bowel habits, constipation, black stools or rectal bleeding. Intermittent food related diarrhea Pt complains of diarrhea and denies nausea, vomiting or fever. Every time she tries to eat, she has to stop due to abdominal pain. Has 4 loose BMs a day. Taking yogurt, soft foods and water. Unable to eat bread. Weight loss from 151 to 146 lbs. (wt decreased from 178 lbs 2 yrs ago) ETOH abuse since age 6 yrs and quitted a year. She was drinking 3-6 bottles of Vodka in a day IMAGING STUDIES:? 07/27/[address] SCAN SHOWED: PANCREAS: Changes of chronic pancreatitis. There is dilatation of the pancreatic duct. There are coarse calcifications at the head and body of the pancreas. No acute abnormality. No inflammation around the pancreas. No pseudocyst formation.? 1. No acute abnormality. 2. Changes of chronic pancreatitis but no acute inflammatory changes of the pancreas. 3. Status post cholecystectomy. Chronic dilatation of the bile duct. No calcified stone in the bile ducts. 4. Diverticulosis of the colon. No acute abnormality of the bowel.? 10/2019 MRI showed:Diffuse dilation of the extrahepatic biliary tree.? No evidence of choledocholithiasis or interval increase. This could be from previous obstruction or after cholecystectomy. Diffuse irregular dilation of the pancreatic duct.? No definate pancreatic mass. This is also unchanged in could reflect chronic pancreatitis. ENDOSCOPIC STUDIES: 07/25/22 COLON SHOWED: Colon preparation: Excellent Colonoscopy Findings: No polyps were detected Moderate diverticulosis seen in the left colon Moderate hemorrhoids on retroflexed exam. Plan: Repeat Colonoscopy in 5 years due to a history of adenomatous colon polyps. 03/18 Colonoscopy showed:Four polyps removed Moderate diverticulosis seen in the left colon Moderate hemorrhoids on retroflexed exam. Plan: Repeat Colonoscopy interval based on path results - in 1-2 years if polyps are adenomatous. Above findings were reviewed with the patient and colon polyps and diverticulosis handouts were given in the discharge area BIOPSIES SHOWED: A.? Colon, ascending #1, polypectomy:? Tubular adenoma; no high grade dysplasia or carcinoma seen. B.? Colon, ascending at 75 cm, polypectomy:? Colonic mucosa with hyperplastic changes.? See comment. C.? Colon, transverse, polypectomy:? Colonic mucosa with prominent lymphoid aggregate; no dysplasia seen. D.? Rectum, polypectomy:? Hyperplastic mucosal polyp with prolapse changes. COMMENT:? The polyp in part B may be an incipient sessile serrated polyp. 10/2019 EGD AND COLONOSCOPY SHOWED:Findings: Cecum ? Two 3-5 mm sessile polyps removed with a cold biopsy Ascending Colon ? A 2.5 x 2 cms polyp in the distal AC at 110 cms raised with 6 cc of normal saline (submucosal injection) and removed piece meal with a hot snare and polyepctomy site marked by timothy ink. Descending Colon ? Moderate diverticulosis Sigmoid Colon ? A 3 - 2.5 x 3 cms hemorrhagic and ulcerated appearing pedunculated polyp at 45 cms removed with a hot snare. Some bleeding noted from the pedicle treated with placement of a hemoclip. Polypectomy site marked with timothy ink. Moderate diverticulosis. Anorectum - Moderate internal hemorrhoids Colon preparation: Good after some irrigation Impression and Post Procedure Diagnosis: Endoscopy Findings: STOMACH: Gastritis DUODENUM: Normal - biopsied to check for celiac sprue Colonoscopy Findings: Four polyps removed (two were 2.5 to 3 cms) Moderate diverticulosis seen in the left colon Moderate hemorrhoids on retroflexed exam. Rectal bleeding is likely from large SC polyp Plan: Repeat Colonoscopy interval based on path results - in 6 to 12 months to check polypectomy sites in the AC and SC if polyps are adenomatous. BIOPSIES SHOWED: A. Small bowel, biopsy: Duodenal mucosa within normal limits. B. Stomach, antrum, biopsy: Antral-type and oxyntic mucosa with moderate chronic inactive inflammation; no Helicobacter organisms seen. C. Cecum, polypectomies: - Tubular adenoma; no high grade dysplasia or carcinoma seen. - Colonic mucosa with prominent lymphoid aggregate; no dysplasia seen. - Fragments of colonic mucosa within normal limits.D. Colon, ascending at 110 cm, polypectomies: - Tubulovillous adenoma (large polyp); no high grade dysplasia or carcinoma seen. - Fragments of tubulovillous adenoma(s); no high grade dysplasia or carcinoma seen.E. Colon, sigmoid at 45 cm, polypectomy: Inflammatory polyp with prolapse and hyperplastic changes [facility] Medical History Obesity hypoventilation syndrome Alcohol abuse Chronic respiratory failure Abnormal nuclear stress test History of palpitations Hyperglycemia Metabolic acidosis Elevated LFTs DMII (diabetes mellitus, type 2) Anemia Chronic pancreatitis History of colon polyps GERD (gastroesophageal reflux disease) Non-ischemic cardiomyopathy Ascending aorta dilatation Hx of non-ST elevation myocardial infarction (NSTEMI) History of alcohol dependence Fatty liver Sleep apnea Hx of diabetes with ketoacidosis Elevated cholesterol HTN (hypertension) Asthma CHF (congestive heart failure) CAD (coronary artery disease) Hx of acute renal failure Hx of acute pancreatitis Anemia IDDM (insulin dependent diabetes mellitus) Surgical History History of cardiac cath Hx of cholecystectomy Hx of lithotripsy History of partial hysterectomy Hx of colonoscopy History of esophagogastroduodenoscopy (EGD) Family History Father History of heart attack Mother No problems noted. Other No family history of cancer Social History Household Members: Children Housing: Apartment Are you a primary childbirth and infant care teacher to a significant other at home: No Do you presently have visiting nurse or other home services: No Alcohol intake: never Patient Tobacco Use Status: Never used Tobacco Advance Directives Date on File: 07/02/21 service: No Current occupational status: disabled Review of Systems Const All systems reviewed & are unremarkable except as noted in HPI and below Physical Exam Vital Signs: Last Vital Signs Pulse 70 07/14/24 08:05 BP 122/67 07/14/24 08:05 Pulse Ox 99 07/14/24 08:05 Oxygen Delivery Method Room Air 07/14/24 08:05 BMI result Body Mass Index 35.1 Const General: no acute distress Nutritional Appearance: obese Orientation/consciousness: patient oriented x3 Limitations: language barrier HEENT Head: Yes normal to inspection Ears: hearing grossly normal bilaterally Eyes Sclerae: sclerae normal Pupils: Equal, round and reactive pupils present Neck Neck: Yes normal visual inspection Chest Chest palpation & inspection: normal inspection of the chest Resp Effort & Inspection: normal respiratory effort Auscultation: clear to auscultation bilaterally Cardio Palpation: normal PMI Rate: regular rate Rhythm: regular rhythm Heart sounds: S1 normal heart sound present, S2 normal heart sound present and no murmurs GI Palpation (GI): Soft to palpation, nontender and No hepatosplenomegaly present Auscultation: normal bowel sounds Rectal Exam - Female: deferred Skin General skin exam: no rashes or lesions noted Neuro General: patient oriented x3, gait normal and moves all extremities Cranial nerves: Yes Equal, round and reactive pupils present Psych Appearance: grossly normal Mental Status: mental status grossly normal Assessment & Plan Assessment & Plan (1) Diverticulosis: Code(s): K57.90 - Diverticulosis of intestine, part unspecified, without perforation or abscess without bleeding Category: Medical (2) Anemia: Code(s): D64.9 - Anemia, unspecified Category: Medical (3) Elevated lipase: Code(s): R74.8 - Abnormal levels of other serum enzymes Category: Medical (4) Abnormal CT scan, gastrointestinal tract: Code(s): R93.3 - Abnormal findings on diagnostic imaging of other parts of digestive tract Category: Medical (5) Chronic calcific pancreatitis: Code(s): K86.1 - Other chronic pancreatitis Category: Medical (6) Chronic constipation: Code(s): K59.09 - Other constipation Category: Medical (7) Nausea alone: Code(s): R11.0 - Nausea Category: Medical Plan 68 year-old Slovenian-speaking female with hypertension, Lagophthalmos, Obesity, Type 2 DM, obstructive sleep apnea (JUAN DANIEL), stress urinary incontinence, fatty liver followed in GI for anemia (iron studies suggestive of anemia of chronic disease) and history of colon polyps. Pt has a chronically elevated lipase and abd CT scan showed pancreatic calcifications likely due to chronic pancreatitis from long standing ETOH abuse. Pt complains of abdominal pain - worse with eating, nausea, post prandial diarrhea and wt loss - now resolved and pt has been gaining weight. Pts with chronic pancreatitis are at increase risk for pancreatic ca. 06/[address] scan showed chronic calcific pancreatitis (stable). Patient was advised to increase dose of Creon to 2 capsules with each meal (new prescription sent with a higher dose of pancreatic enzymes). 07/25/22 COLON SHOWED: Colon preparation: Excellent Colonoscopy Findings: No polyps were detected Moderate diverticulosis seen in the left colon Moderate hemorrhoids on retroflexed exam. Plan: Repeat Colonoscopy in 5 years due to a history of adenomatous colon polyps. 07/02/23 Complains of a sensation of heat and nausea in the stomach - almost every morning. Denies taking Ondansetron - refill sent. Appetite is fine and denies constipation. Advised to resume pancreatic enzymes for chronic pancreatitis 03/18/24 Patient cc: constipation, patient never received the last med prescribed for constipation. Lab results reviewed Continues to have constipation - has a BM daily with passage of hard stools Advised to start Linzess 145 mcg daily for constipation Stop Omeprazole and continue taking Pantoprazole 40 mg twice daily for GERD 07/14/24 Schedule GES for evaluation of nausea and early satiety Nausea may be related to Jardiance (reported in 2% of patients) FU in 2 months Orders: Orders NM gastric emptying study Today R11.0 - Nausea, R68.81 - Early satiety Medications: Changed From ondansetron 4 mg PO Q8H 60 days PRN 30 tabs 2RF nausea and vomiting R11.0 - Nausea To ondansetron 4 mg PO Q8H 90 days PRN 90 tabs 1RF nausea and vomiting R11.0 - Nausea Coding Level of Care Code Est Pt Level 4 (12746) Diagnoses Diverticulosis K57.90 Anemia D64.9 Elevated lipase R74.[address] scan, gastrointestinal tract R93.3 Chronic calcific pancreatitis K86.1 Chronic constipation K59.09 Nausea alone R11.0 Time Spent (min) 21
[2024-07-14 08:05] VITALS: BP 122/67; PULSE 70; O2SAT 99; BMI 35.1
== END 2024-07-14 08:37 | disposition home or self-care (01) ==
LOC: HO.HGI 07:57
PROVIDERS: PCP Family Medicine; Visit Provider Internal Medicine Gastroenterology
DX: K57.90 Diverticulosis of intestine, part unspecified, without perforation or abscess without bleeding (principal); D64.9 Anemia, unspecified; R74.8 Abnormal levels of other serum enzymes; R93.3 Abnormal findings on diagnostic imaging of other parts of digestive tract; K86.1 Other chronic pancreatitis; K59.09 Other constipation; R11.0 Nausea
CPT/HCPCS: 99214

== ENCOUNTER → 2024-07-14 07:56 | Outpatient (BNVA) | payer MEDICARE, MEDICAID, SELFPAY | PROVIDERS: PCP Family Medicine; Visit Provider Internal Medicine Gastroenterology | DX: K57.90 Diverticulosis of intestine, part unspecified, without perforation or abscess without bleeding (principal); D64.9 Anemia, unspecified; R74.8 Abnormal levels of other serum enzymes; R93.3 Abnormal findings on diagnostic imaging of other parts of digestive tract; K86.1 Other chronic pancreatitis; K59.09 Other constipation; R11.0 Nausea | CPT/HCPCS: 99212 ==

== ENCOUNTER → 2024-07-28 08:05 | Outpatient (REF) | payer MEDICARE, MEDICAID, SELFPAY ==
--- NOTE | ~2024-07-28 | NM_ITS ---
EXAMINATION: NM RADIONUCLIDE SOLID FOOD GASTRIC EMPTYING 4-HOUR STUDY CLINICAL INFORMATION: Diabetes with gastroparesis. Nausea early satiety and acid reflux. COMPARISON: Ultrasound abdomen 01/14/[address] abdomen 11/19/2023. TECHNIQUE: A standard meal consisting of 4 oz of Egg Beaters brand tagged with 1.0 microcuries Tc-99m Sulfur Colloid, 8 oz water and 1 slices of toast with jelly was administered orally to the patient. Images were obtained using a dual head gamma camera in the anterior and posterior projections over of the stomach immediately post ingestion and at hourly intervals up to 4 hours post ingestion. The anterior and posterior counts at each time interval were averaged using the geometric mean and expressed as percentage of the immediate post ingestion counts. FINDINGS: There is good visualization of activity in the stomach immediately post ingestion. As the study progresses, there is good clearance of activity from the stomach and visualization of progressively increasing small bowel activity. By the end of the study, there is almost no retention noted in the stomach. Retention in the stomach at each time interval was: 1 hour 55% (normal 37%-90%) 2 hours 42% (normal 30%-60%) 3 hours 17% 4 hours 4% (normal 0%-10%) NM/NM gastric emptying study IMPRESSION: Normal 4-hour solid food gastric emptying study. For solid meal, rapid gastric emptying is less than 30% at 60 minutes. Delayed gastric emptying criteria is more than 60% remaining at 120 minutes or more than 10% at 240 minutes. The 4-hour value is the best discriminator of a normal or abnormal result). Gastric emptying study grading per JNMT Consensus Recommendations in 2008 (https://tech.snmjournals.org/content/36/1/44) Grade 1 (mild retention): 11-20% at 4h Grade 2 (moderate retention): 21-35% at 4h Grade 3 (severe retention): 36-50% at 4h Grade 4 (very severe retention): >50% retention at 4h Electronically signed by: Juan Lee MD 07/29/2024 07:08 AM EDT
--- OUTSIDE RECORDS SUMMARY | 2024-07-28 08:10 | XMS_ITS | Encounter Summary ---
Author Organization [facility] Address [address] [facility] [address] [place] [address] Care Team Providers Care Groover And Striper Operator Name Role Phone Myra Persaud DO Primary Care Provider [phone] Elsi Nolasco PharmD Unavailable [phone] Reason for Visit * Reason Onset Date Comments PT1 07/13/2024 Encounter Details Date Type Department Care Team ([facility] st Contact Info) Description 07/13/2024 Telephone [facility] [address] [place] [address] Myra Persaud DO [address] [place] [address] PT1 Social History Tobacco Use Types Packs/Day [...] Y/N: Yes Provider name or facility name: [facility] Facility Address: [address] [place] [address] Escort needed: Y/N: No Do you have a wheelchair: Y/N: No If yes- Manual or electric: no Visits: 2-3 visit a month 2.)Home Address verified: Y/N: Yes Provider name or facility name: [facility] Facility Address: [address] [place] [id number] Escort needed: Y/N: No Do you have a wheelchair: Y/N: No If yes- Manual or electric: Visits: 7-8 times a month documented in this encounter Plan of Treatment Upcoming Encounters Date Type Department Care Team ([facility] st Contact Info) Description 08/29/2024 9:30 AM EDT Office Visit [facility] AD[facility] DENT[facility] [address] [place] [address] Gabino Fitzgerald DDS [address] [place] [address] 09/23/2024 9:00 AM EDT Medication Management [facility] [address] [place] [address] Elsi Nolasco PharmD [address] [place] [id number] documented as of this encounter Goals Goal [...] documented as of this encounter Care Teams Groover And Striper Operator Relationship Specialty Start Date End Date Myra Persaud DO [address] [place] [id number] PCP - General Family Medicine 10/18/13 Elsi Nolasco PharmD [address] [place] [id number] Pharmacist Internal Medicine 11/24/22 documented as of this encounter
--- OUTSIDE RECORDS SUMMARY | 2024-07-28 08:10 | XMS_ITS | Encounter Summary ---
Author Organization [facility] Address [address] [address] [place] [address] Care Team Providers Care Gate Technician Name Role Phone CoriMyra Primary Care Provider [phone] Elsi Nolasco PharmD Unavailable [phone] Reason for Visit * Reason Comments Med Refill Encounter Details Date Type Department Care Team ([facility] st Contact Info) Description 07/24/2024 Refill [facility] [address] [place] [address] Dena Rogers MD [address] [place] [address] Acute gastritis, presence of bleeding unspecified, unspecified [...] Care Team (Late st Contact Info) Description 08/29/2024 9:30 AM EDT Office Visit [facility] ADULT DENTAL [address] [place] [address] Gabino Fitzgerald DDS [address] [place] [address] 09/23/2024 9:00 AM EDT Medication Management [facility] [address] [place] [address] Elsi Nolasco PharmD [address] [place] [address] documented as of this encounter Goals Goal [...] Time PHQ-9 Depression Total Score: 1 08/03/19 10:16 AM EDT documented as of this encounter Care Teams Gate Technician Relationship Specialty Start Date End Date Myra Persaud DO [address] [place] [address] PCP - General Family Medicine 10/18/13 Elsi Nolasco PharmD [address] [place] [address] Pharmacist Internal Medicine 11/24/22 documented as of this encounter
--- OUTSIDE RECORDS SUMMARY | 2024-07-28 08:10 | XMS_ITS | Clinical Summary ---
Author Organization [employer] Address [address] [place] [address] 7t [place] [address] Care Team Providers Care Meat Hostess Name Role Phone Sugey Persaudfer Primary Care Provider Elsi Nolasco PharmD Unavailable [phone] Allergies Active Allergy Reactions Criticality Noted [...] disease, with long-term current use of insulin ([facility]) Use as instructed three times daily for insulin injections 100 each 11 024 Active Eye Itch Relief 0.035 % solution INSTILL 1 DROP IN EACH EYE TWICE DAILY 024 Active Zenpep 3000-97046 units capsule delayed-release particles capsule TAKE 2 CAPSULES BY MOUTH THREE TIMES DAILY WITH MEALS 024 Active calcitriol (Rocaltrol) 0.25 MCG capsule TAKE 1 CAPSULE BY MOUTH EVERY OTHER DAY IN THE MORNING Active ergocalciferol (Vitamin D2) 1.25 MG (15542 UT) capsule TAKE 1 CAPSULE BY MOUTH EVERY MONTH Active TRUEplus Lancets 33G miscIndications:Ty pe 2 diabetes mellitus without complications ([facility]) TEST BLOOD SUGAR THREE TIMES DAILY 100 each Active glucose blood (FREESTYLE LITE) test stripIndications:T ype 2 diabetes mellitus without complications ([facility]) TEST BLOOD SUGAR THREE TIMES [...] call 911 if no relief 25 tablet 12/30 Active Aspirin Low Dose 81 MG EC tabletIndications: Type 2 diabetes mellitus with other specified complication, 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 Repeat as needed. 40 tablet 5 Active empagliflozin (Jardiance) 10 MGIndications:Type 2 diabetes mellitus with stage 4 chronic kidney disease, with long-term current use of insulin ([facility]) Take 1 tablet (10 mg) by mouth in the morning. 30 tablet 5 Active Linzess 145 MCG capsule Take 1 capsule by mouth Once per day. Active Alcohol Swabs (Alcohol Prep) 70 % padsIndications:Ty pe 2 diabetes mellitus with stage 4 chronic kidney disease, with long-term current use of insulin ([facility]) Use prior 6 times daily prior to BG testing & insulin administration 200 each Active Fluticasone Furoate-Vilanterol (Breo Ellipta) 200-25 MCG/ACT aerosol powder INHALE 1 PUFF BY MOUTH EVERY DAY. RINSE MOUTH AFTER USING. 1 each Active gabapentin (Neurontin) 100 MG capsule TAKE 1 CAPSULE BY MOUTH AT BEDTIME 30 capsule 5 Active docusate sodium (Colace) 100 MG capsuleIndications :Chronic constipation TAKE 1 CAPSULE BY MOUTH TWICE DAILY IN THE MORNING AND IN THE EVENING 180 capsule 3 Active carvedilol (Coreg) 3.125 MG tablet TAKE 1 TABLET BY MOUTH TWICE DAILY IN THE MORNING AND IN THE EVENING WITH FOOD 180 tablet 3 Active glucagon (Baqsimi Two Pack) 3 MG/DOSE nasal powderIndications: Type 2 diabetes mellitus with stage 4 chronic kidney disease, with long-term current use of insulin (CMS/HCC) Administer 3 mg via 1 device into the nostril for hypoglycemia with loss of consciousness. If no response after 15 minutes administer an additional dose via 2nd device into other nostril. 2 each 1 Active insulin aspart (NovoLOG FLEXPEN) 100 UNIT/ML penIndications:Typ e 2 diabetes mellitus with stage 4 chronic kidney disease, with long-term current use of insulin (CMS/HCC) Inject 6 Units under the skin with breakfast AND 10 Units with evening meal. Use 1/2 dose, as directed, if eating low/no carb.. 15 mL 2 Active insulin degludec (Tresiba FlexTouch) 100 UNIT/ML injectionIndicatio ns:Type 2 diabetes mellitus with stage 4 chronic kidney disease, with long-term current use of insulin (CMS/HCC) Inject 38 Units under the skin in the evening. 15 mL 5 025 Active sucralfate (Carafate) 1 g tabletIndications: Acute gastritis, presence of bleeding unspecified, unspecified gastritis type TAKE 1 TABLET BY MOUTH TWICE DAILY IN THE MORNING AND IN THE EVENING BEFORE MEALS 60 tablet 3 Active amitriptyline (Elavil) 10 MG tablet TAKE 1 TABLET BY MOUTH AT BEDTIME 30 tablet 5 025 Active amitriptyline (Elavil) 10 MG tablet TAKE 1 TABLET BY MOUTH AT BEDTIME 30 tablet 5 024 07/25 Discontinued( Reorder (will not trigger notification to Pharmacy)) sucralfate (Carafate) 1 g tabletIndications: Acute gastritis, presence of bleeding unspecified, unspecified gastritis type TAKE 1 TABLET BY MOUTH TWICE DAILY BEFORE MEALS AND BEFORE SUPPER 60 tablet 1 025 07/26 Discontinued Active Problems Problem Noted Date Diagnosed [...] Encounters Date Type Department Care Team Description 07/24/2024 Refill [facility] [address] [place] [address] Dena Rogers MD Acute gastritis, presence of bleeding unspecified, unspecified gastritis type 07/24/2024 Refill [facility] [address] [place] [address] Myra Persaud DO 07/13/2024 Patient Outreach [facility] [address] [place] [address] Myra Persaud DO Care Coordination (CH[facility] outreach for SDOH PT-1 and food needs-referral completed /) 07/13/2024 Telephone [facility] [address] [place] [address] Myra Persaud DO PT1 06/27/2024 Travel 06/22/2024 Travel 06/22/2024 Refill [facility] [address] [place] [address] Myra Persaud DO Chronic constipation 06/20/2024 Patient Outreach [facility] [address] [place] [address] Myra Persaud DO Care Coordination ([facility] outreach for SDOH food needs-referral completed /) 06/20/2024 Patient Outreach [facility] [address] [place] [address] Myra Persaud DO Care Coordination (CH[facility] outreach for SDOH food needs-referral completed /) 06/20/2024 Patient Outreach [facility] [address] [place], [place] [phone] Myra Persaud DO Pre-visit Planning (SDOH Screening positive and Tobacco screening negative) 05/21/2024 Refill [facility] [address] [place], [place] [phone] Myra Persaud DO Acute gastritis, presence of bleeding unspecified, unspecified gastritis type 05/12/2024 Telephone [facility] [address] [place], [place] [phone] Myra Persaud DO Recall Appt. 05/12/2024 Travel from Last 3 Months Immunizations Name Administration [...] Description 08/29/2024 9:30 AM EDT Office Visit [facility] [address] [place] [address] Gabino Fitzgerald, KAVEHS [address] [place] [address] 09/23/2024 9:00 AM EDT Medication Management [facility] [address] [place] [address] Elsi Nolasco, PharmD [address] [place] [address] Health Maintenance Due Date Last Done Comments [...] 12/21/2023, Additional history exists Mammogram 10/15/2024 10/16/2023, 07/0 09/2022, 10/03/2022, Additional history exists Dental X-Ray: Bitewings 12/02/2024 12/02/2023, 11/11 Tobacco Screening 02/07/2025 02/08/2024 SDOH Screening 06/20/2025 06/20/2024 Eye Exam 02/02/2026 02/03/2024, 08/2023, 02/03/2024, Additional [...] 7(06/22/2024 11:19 AM EDT) No Shady Slade, PharmD Record your blood sugar as directed Result Component No Elsi Nolasco, Amina Procedures Procedure Name Priority Date/Time Associated Diagnosis Comments POCT GLYCATED HEMOGLOBIN, TOTAL Routine 06/22/2024 11:19 AM EDT Type 2 diabetes mellitus with stage 4 chronic kidney disease, with long-term current use of insulin ([facility]) INTRAORAL - COMPLETE SERIES OF [...] % Blood 06/22/2024 11:1 9 AM EDT Myra Persaud DO POINT OF CARE TEST ENTER/HUMBERTO T ORDERABLES Final Result * BI Mammogram Screening Tomosynthesis Bilateral (10/16/2023 1:25 PM EDT) Anatomical Region Laterality Modality Breast Bilateral Mammography 10/16/2023 1:25 PM EDT Narrative 11/10/2023 2:45 PM EDT ? [facility] ? [address] ?[place] [address] ? Mammography Report ? Signed ? Patient: Denise,Iris N ?MR#: [id number] ?? 36 ? : 1955 ?Acct:[id number] ? Age/Sex: 67 / F ?ADM Date: 10/16/23 ? Loc: HO.MAMMO ? Attending Dr: Turner KESSLER ? Ordering Physician: TURNER HERNANDEZ ? Results: 1Negat ?? leroy ? Date of Service: 10/16/23 ?Follow Up: 1 Year From Orig ?? inal Mammogram ? Procedure(s): MM tomosynthesis screening BI ?? Accession Number(s): [id number] ? cc: TURNER HERNANDEZ ; Myra Persaud DO ? EXAMINATION: ?? [...] 1440 ? DD/ 1325 ? TD/TT: ? Rotor Casting Machine Operator: ? Procedure Note Sofia Yu - 11/10/2023 [facility] [address] [place] [address] Mammography Report Signed Patient: Amy Walker NMR#: [id number] 36 : 7Acct:[id number] Age/Sex: 67 / FADM Date: 10/16/23 Loc: HO.MAMMO Attending Dr: Turner KESSLER Ordering Physician: TURNER HERNANDEZResults: 1Negat leroy Date of Service: 10/16/23Follow Up: 1 Year From Orig inal Mammogram Procedure(s): MM tomosynthesis screening BI Accession Number(s): [id number] cc: TURNER HERNANDEZ Jennifer A DO EXAMINATION: MM SCREENING DIGITAL [...] in OV> 11/10/23 1440 DD/ 1325 TD/TT: Rotor Casting Machine Operator: [facility] External Provider IMG BI PROCEDURES Final Result * Lipid Panel, Standard (07/10/2023 10:01 AM EDT) Triglycerides 86 <150 mg/dL [facility] Comment:Desirable Triglyceri de: less than 150 mg/dLBorderline High Triglyceride 150-199 mg/dLHigh Triglyceride: 200-499 mg/dLVery High Triglyceride: greater than or equal to 5OO mg/dL Cholesterol 117 <200 mg/dL [facility] Comment:Desirable Cholestero l: less than 200 mg/dLBorderline High Cholesterol: 200-239 mg/dLHigh Cholesterol: greater than 239 mg/dL LDL Cholesterol Calculated 45 <100 mg/dL [facility] Comment:Desirable LDL: less than 100 mg/dLNear Optimal/Above Optimal LDL: 110- 129 mg/dLBorderline High LDL: 130-159 mg/dLHigh LDL: 160-189 mg/dLVery High LDL: greater than or equal to 190 mg/dL HDL Cholesterol 55 >40 mg/dL [facility] Comment:Desirable HDL: great er than 40 mg/dL Note: This HDL assay may give artificially low results in patients with liver disease. 07/10/2023 10:0 1 AM EDT 07/10/2023 11:59 AM EDT Myra Persaud DO LAB BLOOD ORDERABLES Final R esult [facility] [address] [place] [address] [phone] * HEPATITIS B SURFACE ANTIBODY (09/09/2021 [...] ORDERABLE LABS Final Result Performing Organization Address [facility] Co de Phone Number [facility] [address] * THINPREP TIS PAP (06/25/2021 9:16 AM [...] has been evaluated with computer assisted technology. [facility] Repairer [employer] : SEE COMMENT [facility] Comment: DCR, CT(ASCP) CT screening location: [address] ??[id number] Interpretation/R esult: Negative for intraepithelial lesion or malignancy. [facility] LMP: NONE GIVEN [facility] Prev. BX: NONE GIVEN [facility] Prev. PAP: NONE GIVEN [facility] SOURCE: None given [facility] Statement Of Adequacy: SATISFACTORY FOR EVALUATION [facility] 06/25/2021 9:16 AM EDT Myra Persaud DO LAB PATHOLOGY ORDERABLES Fin al Result Performing Organization Address [facility] Co de Phone Number [facility] [address] * HPV mRNA E6/E7 REFLEX TO HPV 16, 18/45 (06/25/2021 9:16 AM EDT) HPV nRNA E6/E7 Not Detected Not Detected [facility] Comment: Methodology: Supervisor Heading-Mediated Amplification This assay detects E6/E7 viral messenger RNA (mRNA) from 14 high-risk HPV types (16,18,31,33,35,39,45,51,52,56,58,59,66,68). ? The analytical performance characteristics of this assay have been determined by [employer]. The modifications have not been cleared or approved by the FDA. This assay has been validated pursuant to the CLIA regulations and is used for clinical purposes. ?? For additional information, please refer to http://education.NurseGrid/faq/IYD979i3 (This link if provided for information/ educational purposes only.) 06/25/2021 9:16 AM EDT us Myra Persaud DO LAB CYTOLOGY ORDERABLES Jeane l Result Performing Organization Address [facility] de Phone Number [facility] [address] * (ABNORMAL) OCCULT BLOOD STOOL (11/08/2019 9:39 AM EDT) OCCULT BLOOD STOOL POS(AA) NEG [facility] 11/08/2019 9:39 AM EDT Historical Provider MD LAB BODY FLUIDS AND STOOL S ORDERABLES Final Result Performing Organization Address [facility] Co de Phone Number [facility] [address] from Last 3 Months or Most Recently Relevant to Health Maintenance Insurance [facility] STANDARD [address] [facility] [address] [place] [facility] MEDICAID STAND ADULT Care Teams Meat Hostess Relationship Specialty Start Date End Date Myra Persaud DO [address] [place] [address] PCP - General Family Medicine 10/18/13 Elsi Nolasco PharmD [address] [place] [address] Pharmacist Internal Medicine 11/24/22
--- OUTSIDE RECORDS SUMMARY | 2024-07-28 08:10 | XMS_ITS | Encounter Summary ---
Author Organization [facility] Address [address] [place] [address] 7t [place] [address] Care Team Providers Care Sales And Service Representative Name Role Phone Myra Persaud Primary Care Provider Shady Slade PharmD Unavailable Unavail able Elsi Nolasco PharmD Unavailable Encounter Details Date Type Department Care Team (Late st Contact Info) Description 04/09/2022 Orders Only [facility] [address] [place] [phone] Patricia Hogan LPN Social History Tobacco Use [...] Description 08/29/2024 9:30 AM EDT Office Visit [facility] [address] [place] [address] Gabino Fitzgerald DDS [address] [place] [address] 09/23/2024 9:00 AM EDT Medication Management [facility] [address] [place] [address] PuiaAshleighsa, PharmD [address] [place] [address] documented as of this encounter Visit Diagnoses Not on filedocumented in this encounter Care Teams Sales And Service Representative Relationship Specialty Start Date End Date Myra Persaud DO [address] [place] [address] PCP - General Family Medicine 10/18/13 Shady Slade, RakeshD [address] [place] [address] Pharmacist Internal Medicine 06/09/22 11/23/22 Elsi Nolasco PharmD [address] [place] [address] Pharmacist Internal Medicine 11/24/22 documented as of this encounter
--- OUTSIDE RECORDS SUMMARY | 2024-07-28 08:10 | XMS_ITS | Clinical Summary ---
Author Organization [facility] Address [address] [place] [phone] Phone Care Team Providers Care It Technical Specialist Name Role Phone Myra Persaud DO Primary [...] 1 (one) time each day Active pancrelipase, Nfd-Enci-Cvfv, (Creon) 82474-09678 units capsule Take 1 capsule by mouth [...] 45 capsule 1 5 03/31/19 26 Active ergocalciferol 1.25 MG (16930 UT) capsuleIndicati ons:Stage 3b chronic kidney disease (HCC) TAKE 1 CAPSULE BY MOUTH EVERY MONTH 1 capsule 3 5 Active Active Problems Problem Noted Date Diagnosed [...] [facility] [address] [place] [address] Jeison Bhakta MD Stage 3b chronic kidney [...] Visit [facility] [address] [place] [phone] Jeison Bhakta MD [address] [facility] [address] [place] [phone] Health Maintenance Due Date Last Done Comments Breast Cancer Screening 1955 Colorectal Cancer Screening: Annual FOBT 2005 Colorectal Cancer Screening: Colonoscopy 2005 Colorectal Cancer Screening: Sigmoidoscopy 2005 Hepatitis B Vaccine (1 of 3 - Risk 3-dose series) 2016 03/24/2024, 10/07/2023, 08/27/2023 Diabetes: Ophthalmology Exam 08/19/2021 Diabetes: Pedal Pulse Checked 08/19/2021 Diabetes: Sensory Foot Exam 08/19/2021 Diabetes: Visual Foot Exam 08/19/2021 Diabetes: Hemoglobin A1C 06/22/202403/24/2 024, 07/10/2023, 05/14/2022, Additional history exists Pneumococcal Vaccine: 50+ Years Completed 06/17/2022, 09/03/2017, 03/18/2012 Pneumococcal Vaccine: Peds ( 0 to 5 Years) and At-Risk Patients (6 to 49 Years) Discontinued 06/17/2022, 09/03/2017, 03/18/2012 Influenza Vaccine Completed 12/21/2023, , 06/07/2021, Additional history exists Insurance Medicaid [place] Medicare Medicaid [place] Medicare Medicaid [place] Care Teams It Technical Specialist Relationship Specialty Start Date End Date Myra Persaud DO [address] [facility] [place] [address] PCP - General Family Medicine 07/31/21
--- OUTSIDE RECORDS SUMMARY | 2024-07-28 08:10 | XMS_ITS | Encounter Summary ---
Author Organization [employer] [facility] Address [address] 7t [place] [address] Care Team Providers Care Senior Sql Server Developer Name Role Phone Myra Persaud DO Primary Care Provider [phone] Elsi Nolasco PharmD Unavailable [phone] Reason for Visit * Reason Onset Date Comments PT1 10/08/2023 Encounter Details Date Type Department Care Team ([facility] st Contact Info) Description 10/08/2023 Telephone [facility] [address] [place] [address] Myra Persaud DO [address] [place] [address] PT1 Social History Tobacco Use Types Packs/Day [...] Y/N: Yes Provider name or facility name: [facility] Facility Address: [address] [facility] [address] Escort needed: Y/N: No Do you have a wheelchair: Y/N: No If yes- Manual or electric: no Visits: 4-5 times a month 2.)Home Address verified: Y/N: Yes Provider name or facility name: [facility] Facility Address: [address] [place] [address] Escort needed: Y/N: No Do you have a wheelchair: Y/N: No If yes- Manual or electric: Visits: 7-8 times a month documented in this encounter Plan of Treatment Upcoming Encounters Date Type Department Care Team (Late st Contact Info) Description 08/29/2024 9:30 AM EDT Office Visit [facility] [address] [place] [address] Gabino Fitzgerald DDS [address] [place] [address] 09/23/2024 9:00 AM EDT Medication Management [facility] [address] [place] [address] Elsi Nolasco PharmD [address] [place] [address] documented as of this encounter Goals Goal [...] documented as of this encounter Care Teams Senior Sql Server Developer Relationship Specialty Start Date End Date Myra Persaud DO [address] [place] [address] PCP - General Family Medicine 10/18/13 Elsi Nolasco PharmD [address] [place] [address] Pharmacist Internal Medicine 11/24/22 documented as of this encounter
--- OUTSIDE RECORDS SUMMARY | 2024-07-28 08:10 | XMS_ITS | Encounter Summary ---
Author Organization [employer] [facility] Address [address] [place] [address] 7t [place] [address] Care Team Providers Care Artist Model Name Role Phone Myra Persaud DO Primary Care Provider Shady Slade PharmD Unavailable Unavail able Elsi Nolasco PharmD Unavailable Encounter Details Date Type Department Care Team (Late st Contact Info) Description 04/17/2022 Telephone [facility] [address] [place] [address] Myra Persaud DO [address] [place] [address] Social History Tobacco Use Types Packs/Day Years [...] Description 08/29/2024 9:30 AM EDT Office Visit [facility] ADULT [facility] [address] [place] [address] Gabino Fitzgerald DDS [address] [place] [address] 09/23/2024 9:00 AM EDT Medication Management [facility] [address] [place] [address] Elsi Nolasco PharmD [address] [place] [address] documented as of this encounter Visit Diagnoses Not on filedocumented in this encounter Care Teams Artist Model Relationship Specialty Start Date End Date Myra Persaud DO [address] [place] [address] PCP - General Family Medicine 10/18/13 Shady Slade PharmD [address] [place] [address] Pharmacist Internal Medicine 06/09/22 11/23/22 Elsi Nolasco PharmD [address] [place] [address] Pharmacist Internal Medicine 11/24/22 documented as of this encounter
--- OUTSIDE RECORDS SUMMARY | 2024-07-28 08:10 | XMS_ITS | Encounter Summary ---
Author Organization [facility] Address [address] [facility] 7t [place] [address] Care Team Providers Care Pathology Teacher Name Role Phone Cori Myra Primary Care Provider [phone] DelShady wong PharmD Unavailable Unavail able Elsi Nolasco PharmD Unavailable Encounter Details Date Type Department Care Team (Late st Contact Info) Description 04/10/2022 Orders Only [facility] & [facility] [address] [place] [address] Myra Bland LPN Social History Tobacco Use [...] Description 08/29/2024 9:30 AM EDT Office Visit [facility] ADULT DENTAL [address] [place] [address] Gabino Fitzgerald DDS [address] [place] [address] 09/23/2024 9:00 AM EDT Medication Management [facility] [address] [place] [address] Puia, Elsi, PharmD [address] [place] [address] documented as of this encounter Visit Diagnoses Not on filedocumented in this encounter Care Teams Pathology Teacher Relationship Specialty Start Date End Date Myra Persaud DO [address] [place] [address] PCP - General Family Medicine 10/18/13 Shady Slade, PharmD [address] [place] [address] Pharmacist Internal Medicine 06/09/22 11/23/22 Elsi Nolasco PharmD [address] [place] [address] Pharmacist Internal Medicine 11/24/22 documented as of this encounter
--- OUTSIDE RECORDS SUMMARY | 2024-07-28 08:10 | XMS_ITS | Encounter Summary ---
Author Organization [employer] Address [address] 7t [place] [address] Care Team Providers Care Dairy Farmer Name Role Phone Cori Myra Primary Care Provider [phone] Elsi Nolasco PharmD Unavailable [phone] Encounter Details Date Type Department Care Team ([facility] Contact Info) Description 09/09/2023 Orders Only [facility] [address] [place] [address] JcBonyn, OD [address] [place] [address] Presbyopia (Primary Dx) Social History Tobacco Use [...] Description 08/29/2024 9:30 AM EDT Office Visit [facility] ADULT DENTAL [address] [place] [address] Gabino Fitzgerald DDS [address] [place] [address] 09/23/2024 9:00 AM EDT Medication Management [facility] [address] [place] [address] Elsi Nolasco, PharmD [address] [place] [address] documented as of this encounter Goals Goal Patient Goal Type Associated Problems Recent Progress Patient-Stated? Author Hemoglobin A1c < 7.5 Result Component 7(06/22/2024 11:19 AM EDT) No DellogShady lópez, PharmD Record your blood sugar as directed Result Component No PuiaElsi, PharmD documented as of this encounter Visit Diagnoses Diagnosis Presbyopia- Primary documented in this encounter Additional Health Concerns Assessment Noted Time PHQ-9 Depression Total Score: 1 08/03/19 24 10:16 AM EDT documented as of this encounter Care Teams Dairy Farmer Relationship Specialty Start Date End Date Myra Persaud DO [address] [place] [address] PCP - General Family Medicine 10/18/13 Elsi Nolasco, Amina [address] [place] [address] Pharmacist Internal Medicine 11/24/22 documented as of this encounter
--- OUTSIDE RECORDS SUMMARY | 2024-07-28 08:10 | XMS_ITS | Encounter Summary ---
Author Organization [facility] Address [address] 7t [place] [address] Care Team Providers Care Education Department Chair Name Role Phone Myra Persaud DO Primary Care Provider +1 [phone] Elsi Nolasco PharmD Unavailable [phone] Reason for Visit * Reason Onset Date Comments PT1 08/10/2023 Encounter Details Date Type Department Care Team ([facility] st Contact Info) Description 08/10/2023 Telephone [facility] [address] [place] [address] Myra Persaud DO [address] [place] [address] PT1 Social History Tobacco Use Types Packs/Day [...] / denial letter via mail. PT-1 Request [id number] Authorized [facility] PT-1 Request [id number] Pending - [facility] Pulmon[facility] PT-1 Request [id number] Pending - [facility] Gastro [address] PT-1 Request [id number] Authorized [facility] * Telephone Encounter - Laureen Max - 08/10/2023 9:09 AM EDT 1.)Patient calling requesting PT1 Home Address verified: Y/N: Yes Provider name or facility name: [facility] Facility Address: [address] [place] [address] Escort needed: Y/N: No Do you have a wheelchair: Y/N: No If yes- Manual or electric: no Visits: 2-3 visit a month 2.)Patient calling requesting PT1 Home Address verified: Y/N: Yes Provider name or facility name: [facility] Facility Address: [address] [place] [address] Escort needed: Y/N: No Do you have a wheelchair: Y/N: No If yes- Manual or electric: no Visits: 2-3 visit a month 3.)Patient calling requesting PT1 Home Address verified: Y/N: Yes Provider name or facility name: [facility] Facility Address: [address] [place] [address] Dr [address] Floor, [place] [address] Escort needed: Y/N: No Do you have a wheelchair: Y/N: No If yes- Manual or electric: no Visits: 2-3 visit a month 4.)Patient calling requesting PT1 Home Address verified: Y/N: Yes Provider name or facility name: [facility] V[facility] Facility Address: [address], [address] [place] [address] Escort needed: Y/N: No Do you have a wheelchair: Y/N: No If yes- Manual or electric: no Visits: 2-3 visit a month documented in this encounter Plan of Treatment Upcoming Encounters Date Type Department Care Team (Late st Contact Info) Description 08/29/2024 9:30 AM EDT Office Visit [facility] [address] [place] [address] Gabino Fitzgerald DDS [address] [place] [address] 09/23/2024 9:00 AM EDT Medication Management [facility] [address] [place] [address] Elsi Nolasco, PharmD [address] [place] [address] documented as of this encounter Goals Goal [...] documented as of this encounter Care Teams Education Department Chair Relationship Specialty Start Date End Date Myra Persaud DO [address] [place] [address] PCP - General Family Medicine 10/18/13 Elsi Nolasco PharmD [address] [place] [address] Pharmacist Internal Medicine 11/24/22 documented as of this encounter
--- OUTSIDE RECORDS SUMMARY | 2024-07-28 08:10 | XMS_ITS | Encounter Summary ---
Author Organization [facility] [facility] Address [address] 7t [place] [address] Care Team Providers Care Manager Material Name Role Phone Myra Persaud DO Primary Care Provider [phone] Elsi Nolasco PharmD Unavailable [phone] Reason for Visit * Reason Comments Med Refill Encounter Details Date Type Department Care Team ([facility] st Contact Info) Description 07/24/2024 Refill [facility] MEDICINE [address] [place] [address] Myra Persaud DO [address] [place] [address] Social History Tobacco Use Types Packs/Day Years [...] Description 08/29/2024 9:30 AM EDT Office Visit [facility] ADULT DENTAL [address] [place] [address] Gabino Fitzgerald DDS [address] [place] [address] 09/23/2024 9:00 AM EDT Medication Management [facility] MEDICINE [address] [place] [address] Elsi Nolasco, PharmD [address] [place] [address] documented as of this encounter Goals Goal [...] documented as of this encounter Care Teams Manager Material Relationship Specialty Start Date End Date Myra Persaud DO [address] [place] [address] PCP - General Family Medicine 10/18/13 Elsi Nolasco, Amina [address] [place] [address] Pharmacist Internal Medicine 11/24/22 documented as of this encounter
== END ==
LOC: HO.NUCMED 08:05
PROVIDERS: PCP Family Medicine; Visit Provider Internal Medicine Gastroenterology
DX: R68.81 Early satiety (principal); R11.0 Nausea
CPT/HCPCS: 78264; A9541

== ENCOUNTER → 2024-07-28 08:06 | Outpatient (BNV) | payer MEDICARE, MEDICAID, SELFPAY | PROVIDERS: PCP Family Medicine; Visit Provider Radiology Diagnostic Radiology | DX: E11.43 Type 2 diabetes mellitus with diabetic autonomic (poly)neuropathy (principal); R11.0 Nausea; K21.9 Gastro-esophageal reflux disease without esophagitis | CPT/HCPCS: 78264 ==

== ENCOUNTER → 2024-09-15 09:32 | Outpatient (BNV) | payer MEDICARE, MEDICAID, SELFPAY | PROVIDERS: PCP Family Medicine; Visit Provider Radiology Diagnostic Radiology | DX: S50.12XA Contusion of left forearm, initial encounter (principal); M79.632 Pain in left forearm; W19.XXXA Unspecified fall, initial encounter; Y92.019 Unspecified place in single-family (private) house as the place of occurrence of the external cause | CPT/HCPCS: 73090 ==

== ENCOUNTER 2024-09-15 09:34 | Outpatient (REF) | payer MEDICARE, MEDICAID, SELFPAY ==
--- NOTE | ~2024-09-15 | XR_ITS ---
EXAMINATION: XR FOREARM, LEFT CLINICAL INFORMATION: fell at home, left forearm pain and bruising COMPARISON: None available. TECHNIQUE: AP and lateral views of the left forearm were obtained. FINDINGS: No acute cortical disruption. No metallic or radiopaque foreign body. No subcutaneous emphysema. XR/XR forearm LT 2V IMPRESSION: No acute fracture. Electronically signed by: Ghulam Del Toro MD 09/15/2024 09:58 AM EDT
--- OUTSIDE RECORDS SUMMARY | 2024-09-15 10:25 | XMS_ITS | Encounter Summary ---
Author Organization [facility] Address [address] [place] [address] 7t [place] [address] Care Team Providers Care Rpg Developer Name Role Phone Myra Persaud DO Primary Care Provider [phone] Elsi Nolasco PharmD Unavailable [phone] Reason for Visit * Reason Onset Date Comments PT1 08/10/2023 Encounter Details Date Type Department Care Team ([facility] st Contact Info) Description 08/10/[address] [facility] MEDICINE [address] [place] [address] Myra Persaud DO [address] [place], [place] [phone] PT1 Social History Tobacco Use Types Packs/Day [...] / denial letter via mail. PT-1 Request [id number] Authorized [facility] PT-1 Request [id number] Pending - [facility] Pul[facility] PT-1 Request [id number] Pending - [facility] Gastro [address] PT-1 Request [id number] Authorized [facility] * Telephone Encounter - Laureen Max - 08/10/2023 9:09 AM EDT 1.)Patient calling requesting PT1 Home Address verified: Y/N: Yes Provider name or facility name: [facility] Facility Address: [address] [place] [address] Escort needed: Y/N: No Do you have a wheelchair: Y/N: No If yes- Manual or electric: no Visits: 2-3 visit a month 2.)Patient calling requesting PT1 Home Address verified: Y/N: Yes Provider name or facility name: [facility] Facility Address: [address] [place] [address] Escort needed: Y/N: No Do you have a wheelchair: Y/N: No If yes- Manual or electric: no Visits: 2-3 visit a month 3.)Patient calling requesting PT1 Home Address verified: Y/N: Yes Provider name or facility name: [facility] Facility Address: [address], [place] [address] Escort needed: Y/N: No Do you have a wheelchair: Y/N: No If yes- Manual or electric: no Visits: 2-3 visit a month 4.)Patient calling requesting PT1 Home Address verified: Y/N: Yes Provider name or facility name: [facility] V[facility] Facility Address: [address], [address] [place] [address] Escort needed: Y/N: No Do you have a wheelchair: Y/N: No If yes- Manual or electric: no Visits: 2-3 visit a month documented in this encounter Plan of Treatment Upcoming Encounters Date Type Department Care Team (Late st Contact Info) Description 09/23/2024 9:00 AM EDT Medication Management [facility] MEDICINE [address] [place] [address] Puia, Elsi, PharmD [address] [place] [address] documented as of this encounter Goals Goal [...] documented as of this encounter Care Teams Rpg Developer Relationship Specialty Start Date End Date Myra Persaud DO [address] [place] [address] PCP - General Family Medicine 10/18/13 Puia, Elsi, PharmD [address] [place] [address] Pharmacist Internal Medicine 11/24/22 documented as of this encounter
== END 2024-09-15 09:35 | disposition home or self-care (01) ==
LOC: HO.XRAY 09:34
PROVIDERS: PCP Family Medicine; Visit Provider Nurse Practitioner Family
DX: M79.632 Pain in left forearm (principal)
CPT/HCPCS: 73090

== ENCOUNTER 2024-09-29 06:51 | Outpatient (REF) | payer MEDICARE, MEDICAID, SELFPAY ==
[2024-09-29 07:14] LABS: MANUAL DIFF FLAG NO
[2024-09-29 07:38] LABS: Appearance Urine Hazy; Glucose Urine UA >=1000 mg/dL (Negative); PH 6.0 (5.0-9.0); Specific Gravity - Urine 1.025 (1.005-1.025); UMIC TRIGGER UA YES
[2024-09-29 07:44] LABS: Hematocrit 35.6 % (37.0-47.0); Hemoglobin 10.9 g/dl (12.0-16.0); Imm Gran Abs Auto 0.05 X10*3/uL (0.00-0.03); Imm Gran Pct Auto 0.4 % (0.0-0.4); Lymphocytes Absolute Auto 4.5 X10*3/uL (1.2-4.9); Mean Corpuscular HGB Conc 30.6 g/dl (31.0-35.0); Mean Corpuscular Hemoglobin 27.4 pg (27.0-33.0); Mean Corpuscular Volume 89.4 fL (80.0-98.0); NRBC Abs Auto 0.000 X10*3/uL (0.0-0.012); NRBC Pct Auto 0.0 /100WBC (0.0-0.2); Platelet Count 203 X10*3/uL (160-400); Red Blood Count 3.98 X10*6/uL (4.20-5.50); White Blood Count 11.6 X10*3/uL (4.8-10.8)
[2024-09-29 08:15] LABS: Microalbum/Creatinine Ratio Ur 12.9 ug/mg cr (<30); Protein/Creatinine Ratio, Ur 0.10 (<0.2); Total Protein Urine Random 17 mg/dL (<12)
[2024-09-29 08:26] LABS: Parathyroid Hormone Intact 409.6 pg/mL (8.7-77.1)
[2024-09-29 08:28] LABS: Albumin Level 4.0 g/dL (3.5-5.0); Anion Gap 12 (12-20); Blood Urea Nitrogen 25 mg/dL (9-16); Calcium 8.9 mg/dL (8.4-10.2); Carbon Dioxide 21 mmol/L (22-29); Chloride 111 mmol/L (96-108); Estimated Glomerular Filt Rate 32; Magnesium 2.2 mg/dL (1.6-2.6); Potassium 3.8 mmol/L (3.3-5.1); Sodium 140 mmol/L (135-145)
== END 2024-09-29 06:52 | disposition home or self-care (01) ==
LOC: HO.LAB 06:51
PROVIDERS: PCP Family Medicine; Visit Provider Internal Medicine Nephrology
DX: E11.22 Type 2 diabetes mellitus with diabetic chronic kidney disease (principal); N18.4 Chronic kidney disease, stage 4 (severe); N25.0 Renal osteodystrophy; R74.8 Abnormal levels of other serum enzymes; R93.3 Abnormal findings on diagnostic imaging of other parts of digestive tract; R11.0 Nausea; K59.09 Other constipation
CPT/HCPCS: 36415; 80051; 81001; 82040; 82043; 82306; 82310; 82565; 82570; 83735; 83970; 84100; 84156; 84520; 85025; 99212

== ENCOUNTER 2024-09-29 07:26 | Outpatient (AMB) | payer MEDICARE, MEDICAID, SELFPAY ==
--- OUTSIDE RECORDS SUMMARY | 2024-09-29 07:28 | XMS_ITS | Encounter Summary ---
Author Organization [employer] [facility] Address [address] [place] [address] 7t [place] [address] Care Team Providers Care Biofuels Product Development Manager Name Role Phone Myra Persaud DO Primary Care Provider [phone] Elsi Nolasco PharmD Unavailable [phone] Reason for Visit * Reason Onset Date Comments PT1 08/10/2023 Encounter Details Date Type Department Care Team ([facility] st Contact Info) Description 08/10/2023 Telephone [facility] MEDICINE [address] [place] [address] Myra Persaud DO [address] [place], [place] [phone] PT1 Social History Tobacco Use Types Packs/Day [...] / denial letter via mail. PT-1 Request [id number] Authorized [facility] PT-1 Request [id number] Pending - [facility] Pulmonology PT-1 Request [id number] Pending - [facility] Gastro [address] PT-1 Request [id number] Authorized [facility] * Telephone Encounter - Laureen Max - 08/10/2023 9:09 AM EDT 1.)Patient calling requesting PT1 Home Address verified: Y/N: Yes Provider name or facility name: [facility] Facility Address: [address] [place] [address] Escort needed: Y/N: No Do you have a wheelchair: Y/N: No If yes- Manual or electric: no Visits: 2-3 visit a month 2.)Patient calling requesting PT1 Home Address verified: Y/N: Yes Provider name or facility name: [facility] Facility Address: [address] [place] [address] Escort needed: Y/N: No Do you have a wheelchair: Y/N: No If yes- Manual or electric: no Visits: 2-3 visit a month 3.)Patient calling requesting PT1 Home Address verified: Y/N: Yes Provider name or facility name: [facility] Facility Address: [address], [place] [address] Escort needed: Y/N: No Do you have a wheelchair: Y/N: No If yes- Manual or electric: no Visits: 2-3 visit a month 4.)Patient calling requesting PT1 Home Address verified: Y/N: Yes Provider name or facility name: [facility] Vascular Facility Address: [address], [address] [place] [address] Escort needed: Y/N: No Do you have a wheelchair: Y/N: No If yes- Manual or electric: no Visits: 2-3 visit a month documented in this encounter Plan of Treatment Upcoming Encounters Date Type Department Care Team (Late st Contact Info) Description 2024 9:30 AM EDT Medication Management [facility] MEDICINE [address] [place] [address] Puia, Elsi, PharmD [address] [place] [address] documented as of this encounter Goals Goal Patient Goal Type Associated Problems Recent Progress Patient-Stated? Author Hemoglobin A1c < 7.5 Result Component 8(09/23/2024 9:22 AM EDT) No DellogShady lópez, PharmD Record your blood sugar as directed Result Component No Puia, Elsi, PharmD documented as of this encounter Visit Diagnoses Not on filedocumented in this encounter Additional Health Concerns Assessment Noted Time PHQ-9 Depression Total Score: 1 08/03/19 24 10:16 AM EDT documented as of this encounter Care Teams Biofuels Product Development Manager Relationship Specialty Start Date End Date Myra Persaud DO [address] [place] [address] PCP - General Family Medicine 10/18/13 Puia, Elsi, PharmD [address] [place] [address] Pharmacist Internal Medicine 11/24/22 documented as of this encounter
--- OUTSIDE RECORDS SUMMARY | 2024-09-29 07:29 | XMS_ITS | Clinical Summary ---
Author Organization [facility] Address [address] [place] [phone] Phone Care Team Providers Care Rehabilitation Construction Specialist Name Role Phone Myra Persaud DO [...] 1 (one) time each day Active pancrelipase, Tcr-Moah-Vhso, (Creon) 77[address] units capsule Take 1 capsule by mouth [...] 5 03/31/19 26 Active ergocalciferol 1.25 MG (97011 UT) capsuleIndicati ons:Stage 3b chronic kidney disease [...] Encounters Date Type Department Care Team Description 08/29/2024 Orders Only [facility] [address] [place] [address] Jeison Bhakta MD Chronic kidney disease, stage 4 (severe) (HCC); Renal osteodystrophy; Type 2 diabetes mellitus with diabetic chronic kidney disease (HCC) from Last 3 [...] Visit [facility] [address] [place] [address] Jeison Bhakta MD [address] [facility] [address] [place] [address] Health Maintenance Due Date Last Done Comments Breast Cancer Screening 1955 Colorectal Cancer Screening: Annual FOBT 2005 Colorectal Cancer Screening: Colonoscopy 2005 Colorectal Cancer Screening: Sigmoidoscopy 2005 Hepatitis B Vaccine (1 of 3 - Risk 3-dose series) 2016 03/24/2024, 10/07/2023, 08/27/2023 Diabetes: Ophthalmology Exam 08/19/2021 Diabetes: Pedal Pulse Checked 08/19/2021 Diabetes: Sensory Foot Exam 08/19/2021 Diabetes: Visual Foot Exam 08/19/2021 Influenza Vaccine (#1) 2024 , 05/14/2022, 06/07/2021, Additional history exists Diabetes: Hemoglobin A1C 12/24/2024 025, 06/22/2024, 03/24/2024, Additional history exists Pneumococcal Vaccine: 50+ Years Completed 06/17/2022, 09/03/2017, 03/18/2012 Pneumococcal Vaccine: Peds ( 0 to 5 Years) and At-Risk Patients (6 to 49 Years) Discontinued 06/17/2022, 09/03/2017, 03/18/2012 Procedures Procedure Name Priority Date/Time Associated Diagnosis Comments ALT EXT LABS Routine 09/15/2024 from Last 3 Months Results * (ABNORMAL) ALT EXT LABS (09/15/2024) Iron 57 UG/DL Iron Saturation (TSat) 31 % TIBC 166 ug/dL Ferritin 816.0(A) 9.0 - 150.0 NG/ML BUN 28(A) 4 - 21 mg/dL Creatinine 2.05(A) 0.50 - 1.10 mg/dL Albumin 4.1 3.5 - 5.0 g/dL Calcium 9.2 8.7 - 10.7 mg/dL Sodium 143 137 - 147 Potassium 4.0 3.4 - 5.5 Chloride 115.0(A) 99.0 - 108.0 09/15/2024 Historical Provider LAB BLOOD ORDERABLES Jeane l Result from Last 3 Months Insurance Medicaid [place] Medicare Medicaid [place] Medicare Medicaid [place] Care Teams Rehabilitation Construction Specialist Relationship Specialty Start Date End Date Myra Persaud DO [address] [facility] [place] [address] PCP - General Family Medicine 07/31/21
--- NOTE | 2024-09-29 07:40 | A.OFFVIS_ITS ---
Vital Signs 09/29/24 07:41 Height 5 ft 1 in Weight 184 lb BMI 34.8 BP 116/64 Blood Pressure Location Lt brachial Position Sitting Pulse 82 Pulse Oximetry (%) 98 Oxygen Delivery Method Room Air Intake Visit Reasons: Schedule GES, FU in 2 months Intake Note: Patient follow up for Abnormal CT scan, gastrointestinal tract and GES results. Patient denies any GI issues for today. Project Archivist Required: Yes Project Archivist Name: [facility] interpeter Accompanied by: Self / Same As Patient Allergies simvastatin (SIMVASTATIN) Adverse Reaction (Unknown, Verified 09/29/24 07:38) Unknown Medication List - Last Reconciled 09/29/24 by Migue Breen MD acetaminophen ER (Arthritis Pain Reliever) 650 mg PO Q12H albuterol sulfate 90 mcg/actuation 2 puffs inhalation Q4-6H PRN amlodipine-celecoxib 2.5-200 mg 1 tab PO DAILY aspirin 81 mg PO DAILY atorvastatin (Lipitor) 80 mg PO BEDTIME baclofen 1 tab PO TID PRN budesonide-formoterol 160-4.5 mcg/actuation 2 puffs inhalation DAILY calcitriol 0.25 mcg PO DAILY calcium carbonate (Calcium Antacid) 1 tab PO BID PRN carvedilol 3.125 mg PO BID empagliflozin (Jardiance) 10 mg PO DAILY fluticasone propionate 110 mcg/actuation (Flovent HFA) 2 puffs inhalation BID folic acid 1 mg PO DAILY gabapentin 1 cap PO BEDTIME glipizide 10 mg PO QPM [insulin zari 30 units miscellaneous DAILY] ketotifen fumarate 0.025%(0.035%) 1 drp ophthalmic (eye) BID linaclotide (Linzess) 145 mcg PO DAILY 30 days kltxtd-zsfdpabc-orqwvtl 3,000-10,000 -14,000-unit (Zenpep) 2 caps PO TID 60 days loratadine 10 mg PO DAILY ondansetron 4 mg PO Q8H PRN 90 days pantoprazole (Protonix) 40 mg PO BID sennosides-docusate sodium 8.6-50 mg (Senna Plus) 2 tab-caps (2 x 8.6-50 mg) PO BEDTIME 60 days HPI HPI Schedule GES, FU in 2 months: Details: GI CLINIC VISIT FOR THIS 68-YEAR-OLD GREENLANDIC-SPEAKING FEMALE FOR FU OF. Pt was hospitalized at [facility] 07/28 to 07/31/21 with rhabdomyolysis and abdominal CT scan showed enteritis. TODAY'S VISIT: [facility] Telephone Exchange Operator, Emmanuelle Patient follow up for Abnormal CT scan, gastrointestinal tract and GES results. Nausea has improved with medications - takes ondansetron once daily in the am Denies constipation or diarrhea Follows with Dr Bhakta for renal issues PAST VISIT: I am a little better and the nausea and burning has not gone away Constipation is better and having a BM twice a day - morning and afternoon. Stool are hard and associated with straining. Sees Dr Bhakta for renal issues Lab results reviewed Continues to have constipation - has a BM daily with passage of hard stools Denies abdominal pain. Nausea improved with medications Sees Dr Bhakta for renal disease Reports she was diagnosed with DM 7 years ago Patient cc: acid reflex on and off and some constipation. Denies any other GI issues. Patient cc: abdominal discomfort with burning sensation and some nauseas, denies any other GI issues. Pt is accompanied by her daughter and grand daughter. Complains of a sensation of heat and nausea in the stomach - almost every morning. Denies taking Ondansetron - refill sent Appetite is fine and denies constipation. Elevated Cr is sees a Human Resources Technician - has FU appt in Jul, 2023. Appetite is good and denies any abdominal pain or diarrhea She has the sensation that she has diarrhea and does not have diarrhea. Has a BM twice a day with passage of hard stools. Denies having to strain or push. Has been gaining. Feels like she has to have a BM and does unable to have one. Stays in the toilet when she feels she needs to have a BM. Unable to sleep last night due to leg and back pain. Scheduled to see Nephrology on 09/09/21 Appetite is good and has gained some weight over the past month abd pain is getting better with the medication Everything I eat gives me diarrhea Diarrhea when she wakes up in the morning. Denies ETOH abuse. Has'nt weighed herself recently Pt is accompanied by her daughter who interpreted abdominal pain with every solid food, Nauseas, GERD, and diarrhea. Denies any constipation or vomit . Pt complains of 10/10 upper abdominal pain for the past month. Abd pain can radiate into the chest and denies radiation to the back. Pain is intermittent and feels like a tightness Patient denies symptoms of abdominal pain, heartburn. Denies recent change in bowel habits, constipation, black stools or rectal bleeding. Intermittent food related diarrhea Pt complains of diarrhea and denies nausea, vomiting or fever. Every time she tries to eat, she has to stop due to abdominal pain. Has 4 loose BMs a day. Taking yogurt, soft foods and water. Unable to eat bread. Weight loss from 151 to 146 lbs. (wt decreased from 178 lbs 2 yrs ago) ETOH abuse since age 6 yrs and quitted a year. She was drinking 3-6 bottles of Vodka in a day IMAGING STUDIES:? 07/27/[address] SCAN SHOWED: PANCREAS: Changes of chronic pancreatitis. There is dilatation of the pancreatic duct. There are coarse calcifications at the head and body of the pancreas. No acute abnormality. No inflammation around the pancreas. No pseudocyst formation.? 1. No acute abnormality. 2. Changes of chronic pancreatitis but no acute inflammatory changes of the pancreas. 3. Status post cholecystectomy. Chronic dilatation of the bile duct. No calcified stone in the bile ducts. 4. Diverticulosis of the colon. No acute abnormality of the bowel.? 10/2019 MRI showed:Diffuse dilation of the extrahepatic biliary tree.? No evidence of choledocholithiasis or interval increase. This could be from previous obstruction or after cholecystectomy. Diffuse irregular dilation of the pancreatic duct.? No definate pancreatic mass. This is also unchanged in could reflect chronic pancreatitis. ENDOSCOPIC STUDIES: 07/25/22 COLON SHOWED: Colon preparation: Excellent Colonoscopy Findings: No polyps were detected Moderate diverticulosis seen in the left colon Moderate hemorrhoids on retroflexed exam. Plan: Repeat Colonoscopy in 5 years due to a history of adenomatous colon polyps. 03/18 Colonoscopy showed:Four polyps removed Moderate diverticulosis seen in the left colon Moderate hemorrhoids on retroflexed exam. Plan: Repeat Colonoscopy interval based on path results - in 1-2 years if polyps are adenomatous. Above findings were reviewed with the patient and colon polyps and diverticulosis handouts were given in the discharge area BIOPSIES SHOWED: A.? Colon, ascending #1, polypectomy:? Tubular adenoma; no high grade dysplasia or carcinoma seen. B.? Colon, ascending at 75 cm, polypectomy:? Colonic mucosa with hyperplastic changes.? See comment. C.? Colon, transverse, polypectomy:? Colonic mucosa with prominent lymphoid aggregate; no dysplasia seen. D.? Rectum, polypectomy:? Hyperplastic mucosal polyp with prolapse changes. COMMENT:? The polyp in part B may be an incipient sessile serrated polyp. 10/2019 EGD AND COLONOSCOPY SHOWED:Findings: Cecum ? Two 3-5 mm sessile polyps removed with a cold biopsy Ascending Colon ? A 2.5 x 2 cms polyp in the distal AC at 110 cms raised with 6 cc of normal saline (submucosal injection) and removed piece meal with a hot snare and polyepctomy site marked by timothy ink. Descending Colon ? Moderate diverticulosis Sigmoid Colon ? A 3 - 2.5 x 3 cms hemorrhagic and ulcerated appearing pedunculated polyp at 45 cms removed with a hot snare. Some bleeding noted from the pedicle treated with placement of a hemoclip. Polypectomy site marked with timothy ink. Moderate diverticulosis. Anorectum - Moderate internal hemorrhoids Colon preparation: Good after some irrigation Impression and Post Procedure Diagnosis: Endoscopy Findings: STOMACH: Gastritis DUODENUM: Normal - biopsied to check for celiac sprue Colonoscopy Findings: Four polyps removed (two were 2.5 to 3 cms) Moderate diverticulosis seen in the left colon Moderate hemorrhoids on retroflexed exam. Rectal bleeding is likely from large SC polyp Plan: Repeat Colonoscopy interval based on path results - in 6 to 12 months to check polypectomy sites in the AC and SC if polyps are adenomatous. BIOPSIES SHOWED: A. Small bowel, biopsy: Duodenal mucosa within normal limits. B. Stomach, antrum, biopsy: Antral-type and oxyntic mucosa with moderate chronic inactive inflammation; no Helicobacter organisms seen. C. Cecum, polypectomies: - Tubular adenoma; no high grade dysplasia or carcinoma seen. - Colonic mucosa with prominent lymphoid aggregate; no dysplasia seen. - Fragments of colonic mucosa within normal limits.D. Colon, ascending at 110 cm, polypectomies: - Tubulovillous adenoma (large polyp); no high grade dysplasia or carcinoma seen. - Fragments of tubulovillous adenoma(s); no high grade dysplasia or carcinoma seen.E. Colon, sigmoid at 45 cm, polypectomy: Inflammatory polyp with prolapse and hyperplastic changes [facility] Medical History Obesity hypoventilation syndrome Alcohol abuse Chronic respiratory failure Abnormal nuclear stress test History of palpitations Hyperglycemia Metabolic acidosis Elevated LFTs DMII (diabetes mellitus, type 2) Anemia Chronic pancreatitis History of colon polyps GERD (gastroesophageal reflux disease) Non-ischemic cardiomyopathy Ascending aorta dilatation Hx of non-ST elevation myocardial infarction (NSTEMI) History of alcohol dependence Fatty liver Sleep apnea Hx of diabetes with ketoacidosis Elevated cholesterol HTN (hypertension) Asthma CHF (congestive heart failure) CAD (coronary artery disease) Hx of acute renal failure Hx of acute pancreatitis Anemia IDDM (insulin dependent diabetes mellitus) Surgical History History of cardiac cath Hx of cholecystectomy Hx of lithotripsy History of partial hysterectomy Hx of colonoscopy History of esophagogastroduodenoscopy (EGD) Family History Father History of heart attack Mother No problems noted. Other No family history of cancer Social History Household Members: Children Housing: Apartment Are you a primary senior resident care director to a significant other at home: No Do you presently have visiting nurse or other home services: No Alcohol intake: never Patient Tobacco Use Status: Never used Tobacco Advance Directives Date on File: 07/02/21 service: No Current occupational status: disabled Review of Systems Const All systems reviewed & are unremarkable except as noted in HPI and below Physical Exam Vital Signs: Last Vital Signs Pulse 82 09/29/24 07:41 BP 116/64 09/29/24 07:41 Pulse Ox 98 09/29/24 07:41 Oxygen Delivery Method Room Air 09/29/24 07:41 BMI result Body Mass Index 34.8 Const General: no acute distress Nutritional Appearance: obese Orientation/consciousness: patient oriented x3 Limitations: language barrier HEENT Head: Yes normal to inspection Ears: hearing grossly normal bilaterally Eyes Sclerae: sclerae normal Pupils: Equal, round and reactive pupils present Neck Neck: Yes normal visual inspection Chest Chest palpation & inspection: normal inspection of the chest Resp Effort & Inspection: normal respiratory effort Auscultation: clear to auscultation bilaterally Cardio Palpation: normal PMI Rate: regular rate Rhythm: regular rhythm Heart sounds: S1 normal heart sound present, S2 normal heart sound present and no murmurs GI Palpation (GI): Soft to palpation, nontender and No hepatosplenomegaly present Auscultation: normal bowel sounds Rectal Exam - Female: deferred Skin General skin exam: no rashes or lesions noted Neuro General: patient oriented x3, gait normal and moves all extremities Cranial nerves: Yes Equal, round and reactive pupils present Psych Appearance: grossly normal Mental Status: mental status grossly normal Assessment & Plan Assessment & Plan (1) Elevated lipase: Code(s): R74.8 - Abnormal levels of other serum enzymes Category: Medical (2) Abnormal CT scan, gastrointestinal tract: Code(s): R93.3 - Abnormal findings on diagnostic imaging of other parts of digestive tract Category: Medical (3) Chronic calcific pancreatitis: Code(s): K86.1 - Other chronic pancreatitis Category: Medical (4) Chronic constipation: Code(s): K59.09 - Other constipation Category: Medical (5) Nausea alone: Code(s): R11.0 - Nausea Category: Medical Plan 68 year-old [place]-speaking female with hypertension, Lagophthalmos, Obesity, Type 2 DM, obstructive sleep apnea (JUAN DANIEL), stress urinary incontinence, fatty liver followed in GI for anemia (iron studies suggestive of anemia of chronic disease) and history of colon polyps. Pt has a chronically elevated lipase and abd CT scan showed pancreatic calcifications likely due to chronic pancreatitis from long standing ETOH abuse. Pt complains of abdominal pain - worse with eating, nausea, post prandial diarrhea and wt loss - now resolved and pt has been gaining weight. Pts with chronic pancreatitis are at increase risk for pancreatic ca. 06/[address] scan showed chronic calcific pancreatitis (stable). Patient was advised to increase dose of Creon to 2 capsules with each meal (new prescription sent with a higher dose of pancreatic enzymes). 07/25/22 COLON SHOWED: Colon preparation: Excellent Colonoscopy Findings: No polyps were detected Moderate diverticulosis seen in the left colon Moderate hemorrhoids on retroflexed exam. Plan: Repeat Colonoscopy in 5 years due to a history of adenomatous colon polyps. 07/02/23 Complains of a sensation of heat and nausea in the stomach - almost every morning. Denies taking Ondansetron - refill sent. Appetite is fine and denies constipation. Advised to resume pancreatic enzymes for chronic pancreatitis 03/18/24 Patient cc: constipation, patient never received the last med prescribed for constipation. Lab results reviewed Continues to have constipation - has a BM daily with passage of hard stools Advised to start Linzess 145 mcg daily for constipation Stop Omeprazole and continue taking Pantoprazole 40 mg twice daily for GERD 07/14/24 Schedule GES for evaluation of nausea and early satiety Nausea may be related to Jardiance (reported in 2% of patients) 07/28/24 GASTRIC EMPTYING STUDY SHOWED: 1 hour 55% (normal 37%-90%) 2 hours 42% (normal 30%-60%) 3 hours 17% 4 hours 4% (normal 0%-10%) IMPRESSION: Normal 4-hour solid food gastric emptying study. FU in 2 months Coding Level of Care Code Est Pt Level 3 (85189) Diagnoses Elevated lipase R74.[address] scan, gastrointestinal tract R93.3 Chronic calcific pancreatitis K86.1 Chronic constipation K59.09 Nausea alone R11.0 Time Spent (min) 16
[2024-09-29 07:41] VITALS: BP 116/64; PULSE 82; O2SAT 98; BMI 34.8
== END 2024-09-29 08:15 | disposition home or self-care (01) ==
PROVIDERS: PCP Family Medicine; Visit Provider Internal Medicine Gastroenterology
DX: R74.8 Abnormal levels of other serum enzymes (principal); R93.3 Abnormal findings on diagnostic imaging of other parts of digestive tract; K86.1 Other chronic pancreatitis; K59.09 Other constipation; R11.0 Nausea
CPT/HCPCS: 99213

== ENCOUNTER 2024-10-07 08:59 | Outpatient (AMB) | payer MEDICARE, MEDICAID, SELFPAY ==
--- NOTE | 2024-10-07 09:08 | A.OFFVIS_ITS ---
Vital Signs 10/07/24 09:09 Height 5 ft 1 in Weight 184 lb BMI 34.8 Intake Visit Reasons: Inj-Right Thumb CMC OA-last inj 06/06/24 Intake Note: Amy is a 68 year old right hand dominant female who presents today for a follow up of her Right Thumb CMC joint OA. An injection was administered on 06/06/24. Fireworks Inspector Required: No Allergies simvastatin (SIMVASTATIN) Adverse Reaction (Unknown, Verified 10/07/24 09:18) Unknown HPI HPI Inj-Right Thumb CMC OA-last inj 06/06/24: Details: Amy is a 68 year old right hand dominant female who presents today for a follow up of her Right Thumb CMC joint OA. An injection was administered on 06/06/24. Reports good relief with the previous injection, but reports pain has returned and would like to explore another injection. [facility] Medical History Obesity hypoventilation syndrome Alcohol abuse Chronic respiratory failure Abnormal nuclear stress test History of palpitations Hyperglycemia Metabolic acidosis Elevated LFTs DMII (diabetes mellitus, type 2) Anemia Chronic pancreatitis History of colon polyps GERD (gastroesophageal reflux disease) Non-ischemic cardiomyopathy Ascending aorta dilatation Hx of non-ST elevation myocardial infarction (NSTEMI) History of alcohol dependence Fatty liver Sleep apnea Hx of diabetes with ketoacidosis Elevated cholesterol HTN (hypertension) Asthma CHF (congestive heart failure) CAD (coronary artery disease) Hx of acute renal failure Hx of acute pancreatitis Anemia IDDM (insulin dependent diabetes mellitus) Surgical History History of cardiac cath Hx of cholecystectomy Hx of lithotripsy History of partial hysterectomy Hx of colonoscopy History of esophagogastroduodenoscopy (EGD) Family History Father History of heart attack Mother No problems noted. Other No family history of cancer Social History Household Members: Children Housing: Apartment Are you a primary adult care manager to a significant other at home: No Do you presently have visiting nurse or other home services: No Alcohol intake: never Patient Tobacco Use Status: Never used Tobacco Advance Directives Date on File: 07/02/21 service: No Current occupational status: disabled Physical Exam Vital Signs: BMI result Body Mass Index 34.8 Office Procedures AMB Joint Injection/Aspiration Joint Injection/Aspiration Primary Site: right thumb Injected: 40 mg of and DepoMedrol Procedure: The patient tolerated the procedure well and there was some relief with the local anesthesia Coding - Small Joint Procedure code (CPT) selection complete Assessment & Plan Assessment & Plan (1) Osteoarthritis of first carpometacarpal joint of right hand: Code(s): M18.11 - Unilateral primary osteoarthritis of first carpometacarpal joint, right hand Category: Medical Plan 1. Arthritis of 1st CMC joint of right hand Pain ongoing for approximately 1.5 years A educated the patient about this condition I educated the patient about potential treatment options, including conservative, nonoperative, and operative treatments. The patient would like to proceed with a steroid injection at this time. The risks and benefits of a steroid injection including but not limited to risk of damage to blood vessels, nerve, tendon, infection, skin bleaching, persistent or worsening pain, and failure to improve symptoms were discussed with the patient and they wish to proceed with the steroid injection. Once consent was obtained the skin over the dorsum of the right basal joint was aseptically prepped. The joint was then injected with a combination of 1 mL of 40 mg/ml Depo-Medrol and 1% plain Lidocaine. The patient appears to have tolerated the procedure well and with no complications. She had good early relief before leaving clinic today. She knows that they may not have another steroid injection into this joint for least 4 months. Patient will follow-up as needed with any acute concerns Coding Level of Care Code Procedure Only Diagnoses Osteoarthritis of first carpometacarpal joint of right hand M18.11 CPT Codes Coding - 03916 - Small joint: 68487 - Small Joint ([id number])
[2024-10-07 09:09] VITALS: BMI 34.8
--- OUTSIDE RECORDS SUMMARY | 2024-10-07 09:11 | XMS_ITS | Encounter Summary ---
Author Organization [facility] Address [address] [place] [address] [address] [place] [address] Care Team Providers Care Featheredge Machine Operator Name Role Phone Myra Persaud DO Primary Care Provider [phone] Elsi Nolasco PharmD Unavailable [phone] Reason for Visit * Reason Onset Date Comments PT1 08/10/2023 Encounter Details Date Type Department Care Team ([facility] st Contact Info) Description 08/10/2023 Telephone [facility] MEDICINE [address] [place] [address] Myra Persaud DO [address], [place] [id number] PT1 Social History Tobacco Use Types Packs/Day [...] / denial letter via mail. PT-1 Request [id number] Authorized [facility] PT-1 Request [id number] Pending - [facility] Pulmonology PT-1 Request [id number] Pending - [facility] Gastro [address] PT-1 Request [id number] Authorized [facility] * Telephone Encounter - Laureen Max - 08/10/2023 9:09 AM EDT 1.)Patient calling requesting PT1 Home Address verified: Y/N: Yes Provider name or facility name: [facility] Facility Address: [address] [place] [id number] Escort needed: Y/N: No Do you have a wheelchair: Y/N: No If yes- Manual or electric: no Visits: 2-3 visit a month 2.)Patient calling requesting PT1 Home Address verified: Y/N: Yes Provider name or facility name: [facility] Pulmonology Center Facility Address: [address] [place] [id number] Escort needed: Y/N: No Do you have a wheelchair: Y/N: No If yes- Manual or electric: no Visits: 2-3 visit a month 3.)Patient calling requesting PT1 Home Address verified: Y/N: Yes Provider name or facility name: [facility] Gastroenterology Facility Address: [address], [place] [address] Escort needed: Y/N: No Do you have a wheelchair: Y/N: No If yes- Manual or electric: no Visits: 2-3 visit a month 4.)Patient calling requesting PT1 Home Address verified: Y/N: Yes Provider name or facility name: [facility] Vascular Facility Address: [address], [address] [place] [address] Escort needed: Y/N: No Do you have a wheelchair: Y/N: No If yes- Manual or electric: no Visits: 2-3 visit a month documented in this encounter Plan of Treatment Upcoming Encounters Date Type Department Care Team (Late st Contact Info) Description 2024 9:30 AM EDT Medication Management [facility] MEDICINE [address] [place] [address] Puia, Elsi, PharmD [address] [place] [address] documented as of this encounter Goals Goal [...] documented as of this encounter Care Teams Featheredge Machine Operator Relationship Specialty Start Date End Date Myra Persaud DO [address] [place] [address] PCP - General Family Medicine 10/18/13 Puia, Elsi, PharmD [address] [place] [id number] Pharmacist Internal Medicine 11/24/22 documented as of this encounter
== END 2024-10-07 09:24 | disposition home or self-care (01) ==
LOC: HO.HOS 09:00
PROVIDERS: PCP Family Medicine
DX: M18.11 Unilateral primary osteoarthritis of first carpometacarpal joint, right hand (principal)
CPT/HCPCS: 20600

== ENCOUNTER → 2024-10-07 08:59 | Outpatient (BNVA) | payer MEDICARE, MEDICAID, SELFPAY | PROVIDERS: PCP Family Medicine | DX: M18.11 Unilateral primary osteoarthritis of first carpometacarpal joint, right hand (principal) | CPT/HCPCS: 20600; J1010; J2003 ==

== ENCOUNTER 2024-10-20 08:54 | Outpatient (REF) | payer MEDICARE, MEDICAID, SELFPAY ==
--- OUTSIDE RECORDS SUMMARY | 2024-10-20 09:23 | XMS_ITS | Encounter Summary ---
Author Organization [facility] Address [address] [place] [address] Phone Care Team Providers Care Chemical Handler Name Role Phone Myra Persaud DO Primary Care Provider Unava ilable Reason for Visit * Reason Comments Med Refill Encounter Details Date Type Department Care Team (Late Contact Info) Description 2024 Refill [facility] [address] [place] [address] Jeison Bhakta MD [address] [address] Stage 3b chronic kidney disease (HCC) Social History Tobacco Use Types Packs/Day Years Used Date Smoking Tobacco: Never Smokeless Tobacco: Never Alcohol Use Standard Drinks/Week Comments Never 0 (1 standard drink = 0.6 oz pur e alcohol) Comments Unknown Sex and Gender Information Value Date Recorded Sex Assigned at Not on file Legal Sex Female 1:08 PM EDT Gender Identity Not on file Sexual Orientation Not on file documented as of this encounter Plan of Treatment Upcoming Encounters Date Type Department Care Team (Late st Contact Info) Description 04/10/2025 1:00 PM EST Office Visit [facility] [address] [place] [phone] Jeison Bhakta MD [address] [address] documented as of this encounter Visit Diagnoses Diagnosis Stage 3b chronic kidney disease (HCC) documented in this encounter Care Teams Chemical Handler Relationship Specialty Start Date End Date Myra Persaud DO [address] [place] [address] PCP - General Family Medicine 07/31/21 documented as of this encounter
--- OUTSIDE RECORDS SUMMARY | 2024-10-20 09:23 | XMS_ITS | Encounter Summary ---
Author Organization [employer] [facility] Address [address] [place] [address] 7t [place] [address] Care Team Providers Care White Sugar Pan Tank Operator Name Role Phone Myra Persaud DO Primary Care Provider [phone] Elsi Nolasco PharmD Unavailable [phone] Reason for Visit * Reason Onset Date Comments PT1 08/10/2023 Encounter Details Date Type Department Care Team ([facility] st Contact Info) Description 08/10/2023 Telephone [facility] MEDICINE [address] [place] [address] Myra Persaud DO [address] [place], [place] [phone] PT1 Social History Tobacco Use Types Packs/Day [...] / denial letter via mail. PT-1 Request [id number] Authorized [facility] PT-1 Request [id number] [place] - [facility] [place]-1 Request [id number] Pending - [facility] [place] [address] PT-1 Request [id number] Authorized [facility] * Telephone Encounter - Laureen Max - 08/10/2023 9:09 AM EDT 1.)Patient calling requesting PT1 Home Address verified: Y/N: Yes Provider name or facility name: [facility] Facility Address: [address] [place] [address] Escort needed: Y/N: No Do you have a wheelchair: Y/N: No If yes- Manual or electric: no Visits: 2-3 visit a month 2.)Patient calling requesting PT1 Home Address verified: Y/N: Yes Provider name or facility name: [facility] Facility Address: [address] [place] [address] Escort needed: Y/N: No Do you have a wheelchair: Y/N: No If yes- Manual or electric: no Visits: 2-3 visit a month 3.)Patient calling requesting PT1 Home Address verified: Y/N: Yes Provider name or facility name: [facility] Facility Address: [address], [place] [address] Escort needed: Y/N: No Do you have a wheelchair: Y/N: No If yes- Manual or electric: no Visits: 2-3 visit a month 4.)Patient calling requesting PT1 Home Address verified: Y/N: Yes Provider name or facility name: [facility] Facility Address: [address], [address] [place] [address] Escort needed: Y/N: No Do you have a wheelchair: Y/N: No If yes- Manual or electric: no Visits: 2-3 visit a month documented in this encounter Plan of Treatment Upcoming Encounters Date Type Department Care Team (Late st Contact Info) Description 2024 9:30 AM EDT Medication Management [facility] MEDICINE [address] [place] [address] Puia, Elsi, PharmD [address] [place] [address] Arrived documented as of this encounter Goals Goal [...] documented as of this encounter Care Teams White Sugar Pan Tank Operator Relationship Specialty Start Date End Date Myra Persaud DO [address] [place] [address] PCP - General Family Medicine 10/18/13 Puia, Elsi, PharmD [address] [place] [address] Pharmacist Internal Medicine 11/24/22 documented as of this encounter
[2024-10-20 11:23] LABS: MANUAL DIFF FLAG NO
[2024-10-20 11:28] LABS: Hematocrit 37.4 % (37.0-47.0); Hemoglobin 11.5 g/dl (12.0-16.0); Imm Gran Abs Auto 0.06 X10*3/uL (0.00-0.03); Imm Gran Pct Auto 0.4 % (0.0-0.4); Lymphocytes Absolute Auto 4.9 X10*3/uL (1.2-4.9); Mean Corpuscular HGB Conc 30.7 g/dl (31.0-35.0); Mean Corpuscular Hemoglobin 27.9 pg (27.0-33.0); Mean Corpuscular Volume 90.8 fL (80.0-98.0); NRBC Abs Auto 0.000 X10*3/uL (0.0-0.012); NRBC Pct Auto 0.0 /100WBC (0.0-0.2); Platelet Count 251 X10*3/uL (160-400); Red Blood Count 4.12 X10*6/uL (4.20-5.50); White Blood Count 14.0 X10*3/uL (4.8-10.8)
[2024-10-20 11:32] LABS: Hematocrit 37.8 % (37.0-47.0); Hemoglobin 11.5 g/dl (12.0-16.0); Imm Gran Abs Auto 0.06 X10*3/uL (0.00-0.03); Imm Gran Pct Auto 0.4 % (0.0-0.4); Lymphocytes Absolute Auto 5.1 X10*3/uL (1.2-4.9); MANUAL DIFF FLAG SCAN; Mean Corpuscular HGB Conc 30.4 g/dl (31.0-35.0); Mean Corpuscular Hemoglobin 27.6 pg (27.0-33.0); Mean Corpuscular Volume 90.9 fL (80.0-98.0); NRBC Abs Auto 0.000 X10*3/uL (0.0-0.012); NRBC Pct Auto 0.0 /100WBC (0.0-0.2); Platelet Count 251 X10*3/uL (160-400); Red Blood Count 4.16 X10*6/uL (4.20-5.50); SCAN SMEAR FLAG 1; White Blood Count 14.6 X10*3/uL (4.8-10.8)
[2024-10-20 11:54] LABS: Alanine Aminotransferase 151 U/L (0-31); Albumin Level 4.0 g/dL (3.5-5.0); Alkaline Phosphatase 128 U/L (39-117); Anion Gap 10 (12-20); Aspartate Amino Transferase 83 U/L (5-31); Blood Urea Nitrogen 26 mg/dL (9-16); Calcium 9.3 mg/dL (8.4-10.2); Carbon Dioxide 23 mmol/L (22-29); Chloride 114 mmol/L (96-108); Cholesterol 105 mg/dL (<200); Estimated Glomerular Filt Rate 43; HDL Cholesterol 46 mg/dL (>40); Potassium 3.9 mmol/L (3.3-5.1); Sodium 143 mmol/L (135-145); Total Protein 7.1 g/dL (6.5-8.0); Triglycerides 67 mg/dL (<150)
[2024-10-20 12:04] LABS: Microalbum/Creatinine Ratio Ur 14.5 ug/mg cr (<30)
== END 2024-10-20 08:55 | disposition home or self-care (01) ==
LOC: HO.HHCL 08:54
PROVIDERS: Internal Medicine Medical Oncology; PCP Family Medicine; Visit Provider Family Medicine
DX: I12.9 Hypertensive chronic kidney disease with stage 1 through stage 4 chronic kidney disease, or unspecified chronic kidney disease (principal); E11.22 Type 2 diabetes mellitus with diabetic chronic kidney disease; D63.1 Anemia in chronic kidney disease; N18.4 Chronic kidney disease, stage 4 (severe); Z79.4 Long term (current) use of insulin; E78.49 Other hyperlipidemia
CPT/HCPCS: 36415; 80053; 80061; 80076; 82043; 82248; 82570; 85025

== ENCOUNTER 2024-10-21 12:11 | Outpatient (REF) | payer MEDICARE, MEDICAID, SELFPAY ==
--- OUTSIDE RECORDS SUMMARY | 2024-10-21 12:13 | XMS_ITS | Encounter Summary ---
Author Organization [facility] Address [address] [place] [address] Phone Care Team Providers Care Furniture Technician Name Role Phone Myra Persaud DO Primary Care Provider Unava ilable Reason for Visit * Reason Comments Med Refill Encounter Details Date Type Department Care Team (Late Contact Info) Description 2024 Refill [facility] [address] [place] [address] Jeison Bhakta MD [address] [address] Stage 3b chronic kidney disease [...] Visit [facility] [address] [place] [address] Jeison Bhakta MD [address] [address] documented as of this encounter Visit Diagnoses Diagnosis Stage 3b chronic kidney disease (HCC) documented in this encounter Care Teams Furniture Technician Relationship Specialty Start Date End Date Myra Persaud DO [address] [place] [address] PCP - General Family Medicine 07/31/21 documented as of this encounter
--- OUTSIDE RECORDS SUMMARY | 2024-10-21 12:13 | XMS_ITS | Encounter Summary ---
Author Organization [facility] Address [address] [place] [address] 7t [place] [address] Care Team Providers Care Jail Keeper Name Role Phone Myra Persaud DO Primary Care Provider [phone] Elsi Nolasco PharmD Unavailable [phone] Reason for Visit * Reason Onset Date Comments PT1 08/10/2023 Encounter Details Date Type Department Care Team ([facility] st Contact Info) Description 08/10/2023 Telephone [facility] MEDICINE [address] [place] [address] Myra Persaud DO [address] [place], [place] [phone] PT1 Social History Tobacco Use Types Packs/Day [...] / denial letter via mail. PT-1 Request [id number] Authorized [facility] PT-1 Request [id number] Pending - [facility] [place] PT-1 Request [id number] Pending - [facility] [place] [address] PT-1 Request [id number] Authorized [facility] * Telephone Encounter - Laureen Max - 08/10/2023 9:09 AM EDT 1.)Patient calling requesting PT1 Home Address verified: Y/N: Yes Provider name or facility name: [facility] Facility Address: [address] [place] [address] Escort needed: Y/N: No Do you have a wheelchair: Y/N: No If yes- Manual or electric: no Visits: 2-3 visit a month 2.)Patient calling requesting PT1 Home Address verified: Y/N: Yes Provider name or facility name: [facility] Facility Address: [address] [place] [address] Escort needed: Y/N: No Do you have a wheelchair: Y/N: No If yes- Manual or electric: no Visits: 2-3 visit a month 3.)Patient calling requesting PT1 Home Address verified: Y/N: Yes Provider name or facility name: [facility] Facility Address: [address], [place] [address] Escort needed: Y/N: No Do you have a wheelchair: Y/N: No If yes- Manual or electric: no Visits: 2-3 visit a month 4.)Patient calling requesting PT1 Home Address verified: Y/N: Yes Provider name or facility name: [facility] Facility Address: [address], [address] [place] [address] Escort needed: Y/N: No Do you have a wheelchair: Y/N: No If yes- Manual or electric: no Visits: 2-3 visit a month documented in this encounter Plan of Treatment Upcoming Encounters Date Type Department Care Team (Late st Contact Info) Description 12/19/2024 9:00 AM EDT Medication Management [facility] [address] [place] [address] Puia, Elsi, PharmD [address] [place] [address] documented as of this encounter Goals Goal [...] documented as of this encounter Care Teams Jail Keeper Relationship Specialty Start Date End Date Myra Persaud DO [address] [place] [address] PCP - General Family Medicine 10/18/13 Puia, Elsi, PharmD [address] [place] [address] Pharmacist Internal Medicine 11/24/22 documented as of this encounter
== END 2024-10-21 12:12 | disposition home or self-care (01) ==
LOC: HO.MAMMO 12:11
PROVIDERS: PCP Family Medicine; Visit Provider Family Medicine
DX: Z12.31 Encounter for screening mammogram for malignant neoplasm of breast (principal)
CPT/HCPCS: 77063; 77067

== ENCOUNTER → 2024-10-21 13:15 | Outpatient (BNV) | payer MEDICARE, MEDICAID, SELFPAY | PROVIDERS: PCP Family Medicine; Visit Provider Internal Medicine | DX: Z12.31 Encounter for screening mammogram for malignant neoplasm of breast (principal) | CPT/HCPCS: 77063; 77067 ==

== ENCOUNTER 2024-11-02 15:52 | Outpatient (REF) | payer MEDICARE, MEDICAID, SELFPAY ==
--- OUTSIDE RECORDS SUMMARY | 2024-11-02 16:16 | XMS_ITS | Encounter Summary ---
Author Organization [employer] Address [address] [place] [address] 7t [place] [address] Care Team Providers Care Roll Icer Name Role Phone Myra Persaud DO Primary Care Provider [phone] Elsi Nolasco PharmD Unavailable [phone] Name, Santosh AVALOS Primary Care Provider [phone] Reason for Visit * Reason Onset Date Comments PT1 08/10/2023 Encounter Details Date Type Department Care Team ([facility] st Contact Info) Description 08/10/2023 Telephone [facility] MEDICINE [address] [place], [place] [phone] Myra Persaud DO [address] [place], [place] [phone] PT1 Social History Tobacco Use Types Packs/Day [...] / denial letter via mail. PT-1 Request [id number] Authorized [facility] PT-1 Request [id number] [place] - [facility] [place]-1 Request [id number] Pending - [facility] [place] [address] PT-1 Request [id number] Authorized [facility] * Telephone Encounter - Laureen Max - 08/10/2023 9:09 AM EDT 1.)Patient calling requesting PT1 Home Address verified: Y/N: Yes Provider name or facility name: [facility] Facility Address: [address] [place] [address] Escort needed: Y/N: No Do you have a wheelchair: Y/N: No If yes- Manual or electric: no Visits: 2-3 visit a month 2.)Patient calling requesting PT1 Home Address verified: Y/N: Yes Provider name or facility name: [facility] Facility Address: [address] [place] [address] Escort needed: Y/N: No Do you have a wheelchair: Y/N: No If yes- Manual or electric: no Visits: 2-3 visit a month 3.)Patient calling requesting PT1 Home Address verified: Y/N: Yes Provider name or facility name: [facility] Facility Address: [address] [place] [address] Dr [address] Floor, [place], [place] Escort needed: Y/N: No Do you have a wheelchair: Y/N: No If yes- Manual or electric: no Visits: 2-3 visit a month 4.)Patient calling requesting PT1 Home Address verified: Y/N: Yes Provider name or facility name: [facility] Facility Address: [address], [address] [place], [place] Escort needed: Y/N: No Do you have a wheelchair: Y/N: No If yes- Manual or electric: no Visits: 2-3 visit a month documented in this encounter Plan of Treatment Upcoming Encounters Date Type Department Care Team (Late st Contact Info) Description 12/19/2024 9:00 AM EDT Medication Management [facility] MEDICINE [address] [place] [address] Elsi Nolasco PharmD [address] [place] [address] documented as of this encounter Goals Goal Patient Goal Type Associated Problems Recent Progress Patient-Stated? Author Hemoglobin A1c < 7.5 Result Component 8(09/23/2024 9:22 AM EDT) No Shady Slade, PharmD Record your blood sugar as directed Result Component No FloriaElsi, PharmD documented as of this encounter Visit Diagnoses Not on filedocumented in this encounter Additional Health Concerns Assessment Noted Time PHQ-9 Depression Total Score: 1 08/03/19 24 10:16 AM EDT documented as of this encounter Care Teams Roll Icer Relationship Specialty Start Date End Date Myra Persaud DO [address] [place] [address] PCP - General Family Medicine 10/18/13 10/30/24 Name, MD Santosh [address] [place] [address] PCP - General Internal Medicine 10/31/24 Elsi Nolasco PharmD [address] [place] [address] Pharmacist Internal Medicine 11/24/22 documented as of this encounter
--- OUTSIDE RECORDS SUMMARY | 2024-11-02 16:16 | XMS_ITS | Clinical Summary ---
Author Organization [facility] Address [address] [place] [phone] Phone Care Team Providers Care Hrbp Name Role Phone Myra Persaud DO Primary [...] 1 (one) time each day Active pancrelipase, Agy-Pabw-Viey, (Creon) 90014-31227 units capsule Take 1 capsule by mouth [...] 1 capsule (0.25 mcg total) by mouth 1 (one) time each day TAKE 1 CAPSULE BY MOUTH EVERY OTHER DAY IN THE MORNING 90 capsule 10/04/19 25 025 Active ergocalciferol 1.25 MG (50780 UT) capsuleIndicat ions:Stage 3b chronic kidney disease (HCC) TAKE 1 CAPSULE BY MOUTH EVERY MONTH 1 capsule 3 10/22/19 25 Active ergocalciferol 1.25 MG (12036 UT) capsuleIndicat ions:Stage 3b chronic kidney disease (HCC) TAKE 1 CAPSULE BY MOUTH EVERY MONTH 1 capsule 3 06/24/19 25 025 Discontinued Active Problems Problem Noted Date [...] Encounters Date Type Department Care Team Description 2024 Refill [facility] [address] [place] [address] Jeison Bhakta MD Stage 3b chronic kidney disease (HCC) 10/03/2024 1:00 PM EDT Office Visit [facility] [address] [place] [address] Jeison Bhakta MD Stage 3b chronic kidney disease (HCC) (Primary Dx); Renal osteodystrophy; Type 2 diabetes mellitus with diabetic chronic kidney disease (HCC) 08/29/2024 Orders Only [facility] [address] [place] [address] Jeison Bhakta MD Chronic kidney disease, stage 4 (severe) (HCC); Renal osteodystrophy; Type 2 diabetes mellitus with diabetic chronic kidney disease (HCC) from Last 3 Months Immunizations Immunization Administration Dates Next Due Hepatitis B 03/24/2024,10/07/2023,08/27/2023 Influenza Split 12/12/2011 Influenza Split High Dose Pr eservative Free IM 12/21/2023 Influenza, MDCK, PF, Quadrivalent 02/17/2020 Influenza, Quadrivalent, Pre servative Free 05/14/2022,06/07/2021 Influenza, Unspecified 06/02/2011 Moderna SARS-COV-2 05/14/2022, 2,07/04/2020,06/06 Pneumococcal Conjugate Pcv 20 06/17/2022 Pneumococcal Polysaccharide 09/03/2017, 2 Shingrix 04/19/2020,02/17/2020 Td [...] Sign Reading Time Taken Comments Blood Pressure 119/64 10/03/2024 12:39 PM EDT Pulse 74 10/03/2024 12:39 PM EDT Temperature - - Respiratory Rate - - Oxygen Saturation 99% 10/03/2024 12:39 PM EDT Inhaled Oxygen Concentration - - Weight 83 kg (183 lb) 10/03/2024 12:39 PM EDT Height - - Body Mass Index - - Plan of Treatment Upcoming Encounters Date Type Department Care Team (Late st Contact Info) Description 04/10/2025 1:00 PM EST Office Visit [facility] [address] [place] [address] Jeison Bhakta MD [address] [facility] [address] [place] [address] Health Maintenance Due Date Last Done [...] Procedure Name Priority Date/Time Associated Diagnosis Comments ALBUMIN, URINE, RANDOM Routine 09/29/2024 7:24 AM EDT PROTEIN / CREATININE RATIO, URINE Routine 09/29/2024 7:24 AM EDT Chronic kidney disease, stage 4 (severe) (HCC) Renal osteodystrophy Type 2 diabetes mellitus with diabetic chronic kidney disease (HCC) URINALYSIS WITH MICROSCOPIC Routine 09/29/2024 7:24 AM EDT Chronic kidney disease, stage 4 (severe) (HCC) Renal osteodystrophy Type 2 diabetes mellitus with diabetic chronic kidney disease (HCC) CREATININE, BLOOD Routine 09/29/2024 7:1 2 AM EDT BUN Routine 09/29/2024 7:12 AM EDT ELECTROLYTE PANEL Routine 09/29/2024 7:1 2 AM EDT PTH, INTACT (HC) Routine 09/29/2024 7:12 AM EDT CBC AND DIFFERENTIAL Routine 09/29/2024 7:12 AM EDT CALCIUM Routine 09/29/2024 7:12 AM EDT Chronic kidney disease, stage 4 (severe) (HCC) Renal osteodystrophy Type 2 diabetes mellitus with diabetic chronic kidney disease (HCC) ALBUMIN Routine 09/29/2024 7:12 AM EDT Chronic kidney disease, stage 4 (severe) (HCC) Renal osteodystrophy Type 2 diabetes mellitus with diabetic chronic kidney disease (HCC) MAGNESIUM Routine 09/29/2024 7:12 AM EDT Chronic kidney disease, stage 4 (severe) (HCC) Renal osteodystrophy Type 2 diabetes mellitus with diabetic chronic kidney disease (HCC) PHOSPHATE ( PHOSPHORUS) Routine 09/29/2024 7:12 AM EDT Chronic kidney disease, stage 4 (severe) (HCC) Renal osteodystrophy Type 2 diabetes mellitus with diabetic chronic kidney disease (HCC) VITAMIN D 25 HYDROXY Routine 09/29/2024 7:12 AM EDT Chronic kidney disease, stage 4 (severe) (HCC) Renal osteodystrophy Type 2 diabetes mellitus with diabetic chronic kidney disease (HCC) ALT EXT LABS Routine 09/15/2024 from Last 3 Months Results * (ABNORMAL) Protein, Total, Random Urine w/Creatinine (Protein/Creat Ratio) (09/29/2024 7:24 AM EDT) Protein Urine Random 17(H) <12 mg/dL See order comments Protein/Creatin ine Ratio, Urine 0.10 <0.2 See order comments Comment: The spot urine protein:creatinine ratio may increase to 0.3 during normal . Urine specimen (specimen) Urine specimen obtained by clean catch procedure / Unknown 09/29/2024 7:24 AM EDT 09/29/2024 7:24 AM EDT Jeison Bhakta MD LAB URINE ORDERABLES Final Re sult Performing Organization Address [facility] Co de Phone Number [place] See order comments [place] [address] * Albumin, urine, random (09/29/2024 7:24 AM EDT) Creatinine, Urine 162.78 mg/dL Se e order comments Urine Microalbumin 21.0 mg/L See order comments Microalbumin/Crea tinine Ratio 12.9 <30 ug/mg cr See order comments Comment: Albumin/Creatinine Ratio Reference Ranges: Normal: < 30 ug/mg creatinine Microalbuminuria: 30 - 300 ug/mg creatinine Clinical Albuminuria: > 300 ug/mg creatinine 09/29/2024 7:24 AM EDT 09/29/2024 7:24 AM EDT Jeison Bhakta MD LAB URINE ORDERABLES Final Re sult Performing Organization Address [facility] de Phone Number [place] See order comments [place] [address] * (ABNORMAL) Urinalysis with microscopic (09/29/2024 7:24 AM EDT) Color Urine Yellow See orde r comments Appearance Urine Hazy See order comments pH Urine 6.0 5.0 - 9.0 See order comments Glucose Urine >=1000(A) Negative mg/dL See order comments Blood, Urine Negative Negative See ord er comments Specific Cove Urine 1.025 1.005 - 1.025 See order comments Protein Urine Negative Neg-Trace mg/dL See order comments Ketones, Urine Negative Negative mg/dL See order comments Nitrite, Urine Negative Negative See o rder comments Leukocyte Esterase Urine Small (1+)(A) Negative See order comments RBC, Urine 0-2 0 - 2 /HPF See orde r comments WBC 6-10 0 - 5 /HPF See order comments Squamous Epithelial, Urine 11-20 0 - 2 /HPF See order comments Bacteria, Urine 2+ None Seen See order comments Hyaline Casts, Urine 0-2 0 - 2 /LPF See order comments Urine specimen (specimen) Urine specimen obtained by clean catch procedure / Unknown 09/29/2024 7:24 AM EDT 09/29/2024 7:24 AM EDT us Jeison Bhakta MD LAB URINE ORDERABLES Final Re sult Performing Organization Address [facility] de Phone Number [place] See order comments [place] [address] * (ABNORMAL) Creatinine (09/29/2024 7:12 AM EDT) Creatinine Serum 1.59(H) 0.5 - 1.4 mg/dL See order comments eGFR (Calc) 32 See orde r comments Comment: Chronic Kidney Disease: Estimated GFR < 60 mL/min/1.73m2 Severe Kidney Disease: Estimated GFR < 15 mL/min/1.73m2 09/29/2024 7:12 AM EDT 09/29/2024 7:12 AM EDT us Jeison Bhakta MD LAB BLOOD ORDERABLES Final Re sult Performing Organization Address [facility] de Phone Number [place] See order comments [place] [address] * (ABNORMAL) PTH, Intact (09/29/2024 7:12 AM EDT) Parathyroid Hormone, Intact 409.6(H) 8.7 - 77.1 pg/mL See order comments 09/29/2024 7:12 AM EDT 09/29/2024 7:12 AM EDT us Jeison Bhakta MD LAB [id number]-GR SOLICITED RESULTS Final Result Performing Organization Address [facility] de Phone Number [place] See order comments [place] [address] * (ABNORMAL) Vitamin D 25 Hydroxy (09/29/2024 7:12 AM EDT) Vitamin D, 25-Hydroxy 17.3(L) >30 ng/mL See order comments Comment: Health Based Reference Values* < 20 ng/mL Deficient 20-30 ng/mL Insufficient > 30 ng/mL Sufficient *Herb ALONSO. N Engl J Med. 2007;357:266-280 There is no well-established upper level of normal vitamin D levels. Some laboratories use 50 ng/mL as an upper limit of normal. However, toxicity is patient-dependent and may occur at any level. Careful correlation with the patient's presentation is necessary and, if there is concern for vitamin D toxicity, treatment should be considered irrespective of the serum level. Care must be taken in interpreting Vitamin D results from different laboratories and methodologies. Published data demonstrated that results from patients undergoing hemodialysis may show a negative bias when tested with various automated 25-OH vitamin D assays when compared to LC-MS/MS. When testing samples from patients whose predominant form of Vitamin D is Vitamin D2, such as patients receiving Vitamin D2 supplementation, results that are subtherapeutic should be confirmed with another method such as LC-MS/MS. Blood specimen (specimen) Venous blood / Unknown 09/29/2024 7:12 AM EDT 09/29/2024 7:12 AM EDT us Jeison Bhakta MD LAB BLOOD ORDERABLES Final Re sult [place] See order comments [place] [address] * (ABNORMAL) CBC and Differential (09/29/2024 7:12 AM EDT) WBC 11.6(H) 4.8 - 10.8 X10*3/uL See order comments RBC 3.98(L) 4.20 - 5.50 X10*6/uL See order comments Hgb 10.9(L) 12.0 - 16.0 g/dl See order comments Hematocrit 35.6(L) 37.0 - 47.0 % See order comments MCV 89.4 80.0 - 98.0 fL See order comments MCH 27.4 27.0 - 33.0 pg See order comments MCHC 30.6(L) 31.0 - 35.0 g/dl See order comments RDW 14.6 11.0 - 16.0 % See order comments Platelets 203 160 - 400 X10*3/uL See order comments MPV 10.3 9.4 - 12.3 fL See order comments Neutrophils % Auto 50.7 45 - 73 % See order comments Immature Granulocytes 0.4 0.0 - 0.4 % See order comments Lymphocytes Relative 38.5 20 - 40 % See order comments Monocytes 6.1 2 - 11 % See order comments Eosinophils Relative 3.9 0 - 4 % See order comments Basophils Relative 0.4 0 - 2 % See order comments nRBC Count 0.0 0.0 - 0.2 /100WBC See order comments Neutrophils Absolute 5.9 2.0 - 8.3 x10*3/uL See order comments Immature Grans (Absolute) 0.05(H) 0.00 - 0.03 X10*3/uL See order comments Lymphocytes Absolute 4.5 1.2 - 4.9 X10*3/uL See order comments Monocytes Absolute 0.7 0.1 - 1.2 X10*3/uL See order comments Eosinophils Absolute 0.5(H) 0.0 - 0.4 X10*3/uL See order comments Basophils Absolute 0.1 0.0 - 0.2 X10*3/uL See order comments NRBC Absolute 0.000 0.0 - 0.012 X10*3/uL See order comments 09/29/2024 7:12 AM EDT 09/29/2024 7:12 AM EDT Jeison Bhakta MD LAB BLOOD ORDERABLES Final Re sult [place] See order comments [place] [address] * (ABNORMAL) BUN (09/29/2024 7:12 AM EDT) BUN 25(H) 9 - 16 mg/dL See order comments 09/29/2024 7:12 AM EDT 09/29/2024 7:12 AM EDT Jeison Bhakta MD LAB BLOOD ORDERABLES Final Re sult [place] See order comments [place] [address] * Phosphorus (09/29/2024 7:12 AM EDT) Phosphorus, Serum 3.3 2.7 - 4.5 mg/dL See order comments Blood specimen (specimen) Venous blood / Unknown 09/29/2024 7:12 AM EDT 09/29/2024 7:12 AM EDT us Jeison Bhakta MD LAB BLOOD ORDERABLES Final Re sult Performing Organization Address [facility]/State/ZIP Co de Phone Number [place] See order comments [place] [address] * Magnesium (09/29/2024 7:12 AM EDT) Magnesium 2.2 1.6 - 2.6 mg/dL See order comments Blood specimen (specimen) Venous blood / Unknown 09/29/2024 7:12 AM EDT 09/29/2024 7:12 AM EDT us Jeison Bhakta MD LAB BLOOD ORDERABLES Final Re sult Performing Organization Address [facility] Co de Phone Number [place] See order comments [place] [address] * Calcium (09/29/2024 7:12 AM EDT) Calcium 8.9 8.4 - 10.2 mg/dL See order comments Blood specimen (specimen) Venous blood / Unknown 09/29/2024 7:12 AM EDT 09/29/2024 7:12 AM EDT us Jeison Bhakta MD LAB BLOOD ORDERABLES Final Re sult Performing Organization Address [facility] Co de Phone Number [place] See order comments [place] [address] * Albumin (09/29/2024 7:12 AM EDT) Albumin 4.0 3.5 - 5.0 g/dL See order comments Blood specimen (specimen) Venous blood / Unknown 09/29/2024 7:12 AM EDT 09/29/2024 7:12 AM EDT Jeison Bhakta MD LAB BLOOD ORDERABLES Final Re sul Performing Organization Address [facility] Co de Phone [facility] See order comments [place] [address] * (ABNORMAL) Electrolyte panel (09/29/2024 7:12 AM EDT) Sodium 140 135 - 145 mmol/L See order comments Potassium 3.8 3.3 - 5.1 mmol/L See order comments Chloride 111(H) 96 - 108 mmol/L See order comments Bicarbonate (CO2) 21(L) 22 - 29 mmol/L See order comments Anion Gap 12 12 - 20 See order comments 09/29/2024 7:12 AM EDT 09/29/2024 7:12 AM EDT Jeison Bhakta MD LAB BLOOD ORDERABLES Final Re sul Performing Organization Address [facility] Co de Phone Number [place] See order comments [place] [address] * (ABNORMAL) ALT EXT LABS (09/15/2024) Iron 57 UG/DL Iron Saturation (TSat) 31 % TIBC 166 ug/dL Ferritin 816.0(A) 9.0 - 150.0 NG/ML BUN 28(A) 4 - 21 mg/dL Creatinine 2.05(A) 0.50 - 1.10 mg/dL Albumin 4.1 3.5 - 5.0 g/dL Calcium 9.2 8.7 - 10.7 mg/dL Sodium 143 137 - 147 Potassium 4.0 3.4 - 5.5 Chloride 115.0(A) 99.0 - 108.0 09/15/2024 Result [facility] Oseas West MD LAB BLOOD ORDERABLES Jeane l Result from Last 3 Months Insurance [place] Care Teams Hrbp Relationship Specialty Start Date End Date Myra Persaud DO [address] [place] [address] PCP - General Family Medicine 07/31/21
[2024-11-02 16:36] LABS: MANUAL DIFF FLAG NO
[2024-11-02 16:47] LABS: Hematocrit 36.9 % (37.0-47.0); Hemoglobin 11.2 g/dl (12.0-16.0); Imm Gran Abs Auto 0.06 X10*3/uL (0.00-0.03); Imm Gran Pct Auto 0.5 % (0.0-0.4); Lymphocytes Absolute Auto 3.9 X10*3/uL (1.2-4.9); Mean Corpuscular HGB Conc 30.4 g/dl (31.0-35.0); Mean Corpuscular Hemoglobin 27.6 pg (27.0-33.0); Mean Corpuscular Volume 90.9 fL (80.0-98.0); NRBC Abs Auto 0.000 X10*3/uL (0.0-0.012); NRBC Pct Auto 0.0 /100WBC (0.0-0.2); Platelet Count 196 X10*3/uL (160-400); Red Blood Count 4.06 X10*6/uL (4.20-5.50); White Blood Count 10.9 X10*3/uL (4.8-10.8)
[2024-11-02 17:52] LABS: Alanine Aminotransferase 70 U/L (0-31); Albumin Level 4.0 g/dL (3.5-5.0); Alkaline Phosphatase 114 U/L (39-117); Anion Gap 13 (12-20); Aspartate Amino Transferase 55 U/L (5-31); Blood Urea Nitrogen 24 mg/dL (9-16); Calcium 9.6 mg/dL (8.4-10.2); Carbon Dioxide 23 mmol/L (22-29); Chloride 112 mmol/L (96-108); Estimated Glomerular Filt Rate 41; Potassium 3.9 mmol/L (3.3-5.1); Sodium 144 mmol/L (135-145); Total Protein 7.0 g/dL (6.5-8.0)
== END 2024-11-02 15:53 | disposition home or self-care (01) ==
LOC: HO.HHCL 15:52
PROVIDERS: Internal Medicine Medical Oncology; Pharmacist; PCP Family Medicine; Visit Provider Family Medicine
DX: E11.22 Type 2 diabetes mellitus with diabetic chronic kidney disease (principal); I12.9 Hypertensive chronic kidney disease with stage 1 through stage 4 chronic kidney disease, or unspecified chronic kidney disease; N18.4 Chronic kidney disease, stage 4 (severe); D64.9 Anemia, unspecified; R79.89 Other specified abnormal findings of blood chemistry; Z79.4 Long term (current) use of insulin
CPT/HCPCS: 36415; 80048; 80076; 85025

== ENCOUNTER 2024-11-11 15:57 | Outpatient (REF) | payer MEDICARE, MEDICAID, SELFPAY ==
--- OUTSIDE RECORDS SUMMARY | 2024-11-11 16:01 | XMS_ITS | Encounter Summary ---
Author Organization [employer] Address [address] [place] [address] [address] [place] [address] Care Team Providers Care Automation Lead Name Role Phone Myra Persaud DO Primary Care Provider [phone] Elsi Nolasco PharmD Unavailable [phone] Name, Santosh AVALOS Primary Care Provider [phone] Reason for Visit * Reason Onset Date Comments PT1 08/10/2023 Encounter Details Date Type Department Care Team ([facility] st Contact Info) Description 08/10/2023 Telephone [facility] MEDICINE [address] [place], [place] [phone] Myra Persaud DO [address] [place], [place] [phone] PT1 Social History Tobacco Use Types Packs/Day [...] / denial letter via mail. PT-1 Request [id number] Authorized [facility] PT-1 Request [id number] Pending - [facility] PT-1 Request [id number] Pending - [facility] [address] PT-1 Request [id number] Authorized [facility] * Telephone Encounter - Laureen Max - 08/10/2023 9:09 AM EDT 1.)Patient calling requesting PT1 Home Address verified: Y/N: Yes Provider name or facility name: [facility] Facility Address: [address] [place] [address] Escort needed: Y/N: No Do you have a wheelchair: Y/N: No If yes- Manual or electric: no Visits: 2-3 visit a month 2.)Patient calling requesting PT1 Home Address verified: Y/N: Yes Provider name or facility name: [facility] Facility Address: [address] [place] [address] Escort needed: Y/N: No Do you have a wheelchair: Y/N: No If yes- Manual or electric: no Visits: 2-3 visit a month 3.)Patient calling requesting PT1 Home Address verified: Y/N: Yes Provider name or facility name: [facility] Facility Address: [address] [place] [address] Dr [address] Floor, [place], [place] Escort needed: Y/N: No Do you have a wheelchair: Y/N: No If yes- Manual or electric: no Visits: 2-3 visit a month 4.)Patient calling requesting PT1 Home Address verified: Y/N: Yes Provider name or facility name: [facility] Facility Address: [address], [address] [place], [place] Escort needed: Y/N: No Do you have a wheelchair: Y/N: No If yes- Manual or electric: no Visits: 2-3 visit a month documented in this encounter Plan of Treatment Upcoming Encounters Date Type Department Care Team (Late st Contact Info) Description 12/19/2024 9:00 AM EDT Medication Management [facility] MEDICINE [address] [place] [address] Elsi Nolasco PharmD [address] [place] [address] documented as of this encounter Goals Goal Patient Goal Type Associated Problems Recent Progress Patient-Stated? Author Hemoglobin A1c < 7.5 Result Component 8.4( 3:35 PM EDT) No DellogShady lópez, PharmD Record your blood sugar as directed Result Component No Puia, Elsi, PharmD documented as of this encounter Visit Diagnoses Not on filedocumented in this encounter Additional Health Concerns Assessment Noted Time PHQ-9 Depression Total Score: 1 08/03/19 24 10:16 AM EDT documented as of this encounter Care Teams Automation Lead Relationship Specialty Start Date End Date Myra Persaud DO [address] [place] [address] PCP - General Family Medicine 10/18/13 10/30/24 Name, MD Santosh [address] [place], [place] [phone] PCP - General Internal Medicine 10/31/24 Elsi Nolasco, Amina [address] [place] [address] Pharmacist Internal Medicine 11/24/22 documented as of this encounter
--- OUTSIDE RECORDS SUMMARY | 2024-11-11 16:01 | XMS_ITS | Clinical Summary ---
Author Organization [facility] Address [address] [place] [phone] Phone Care Team Providers Care Transportation Supervisor Name Role Phone Myra Persaud DO Primary [...] 1 (one) time each day Active pancrelipase, Lbq-Hcea-Qqdv, (Creon) 34930-45593 units capsule Take 1 capsule by mouth [...] 10/04/19 25 025 Active ergocalciferol 1.25 MG (09735 UT) capsuleIndicat ions:Stage 3b chronic kidney disease (HCC) TAKE 1 CAPSULE BY MOUTH EVERY MONTH 1 capsule 3 10/22/19 25 Active ergocalciferol 1.25 MG (82368 UT) capsuleIndicat ions:Stage 3b chronic kidney disease [...] Of [address] [place] [address] Jeison Bhakta MD Stage 3b chronic kidney disease (HCC) 10/03/2024 1:00 PM EDT Office Visit [facility] [address] [place] [address] Jeison Bhakta MD Stage 3b chronic kidney disease (HCC) (Primary Dx); Renal osteodystrophy; Type 2 diabetes mellitus with diabetic chronic kidney disease (HCC) 08/29/2024 Orders Only [facility] [address] [place] [address] Jeison Bhakta MD Chronic kidney disease, stage [...] Visit [facility] [address] [place] [address] Jeison Bhakta MD [address] [facility] [address] [place] [address] Health Maintenance Due Date Last Done [...] ORDERABLES Final Re sult Performing Organization Address [facility] Co de Phone Number [place] See order comments [place] [address] * Albumin, urine, random (09/29/2024 7:24 AM [...] ORDERABLES Final Re sult Performing Organization Address [facility] de Phone Number [place] See order comments [place] [address] * (ABNORMAL) Urinalysis with microscopic (09/29/2024 7:24 AM EDT) Color Urine Yellow See orde r comments Appearance Urine Hazy See order comments pH Urine 6.0 5.0 - 9.0 See order comments Glucose Urine >=1000(A) Negative mg/dL See order comments Blood, Urine Negative Negative See ord er comments Specific [place] Urine 1.025 1.005 - 1.025 See order [...] ORDERABLES Final Re sult Performing Organization Address [facility] de Phone Number [place] See order comments [place] [address] * (ABNORMAL) Creatinine (09/29/2024 7:12 AM EDT) Creatinine Serum 1.59(H) 0.5 - 1.4 mg/dL See order comments eGFR (Calc) 32 See orde r comments Comment: Chronic Kidney Disease: Estimated GFR < 60 mL/min/1.73m2 Severe Kidney Disease: Estimated GFR < 15 mL/min/1.73m2 09/29/2024 7:12 AM EDT 09/29/2024 7:12 AM EDT us Jeison Bhakta MD LAB BLOOD ORDERABLES Final Re sult Performing Organization Address [facility] de Phone Number [place] See order comments [place] [address] * (ABNORMAL) PTH, Intact (09/29/2024 7:12 AM EDT) Parathyroid Hormone, Intact 409.6(H) 8.7 - 77.1 pg/mL See order comments 09/29/2024 7:12 AM EDT 09/29/2024 7:12 AM EDT us Jeison Bhakta MD LAB [id number] SOLICITED RESULTS Final Result Performing Organization Address [facility] de Phone Number [place] See order comments [place] [address] * (ABNORMAL) Vitamin D 25 Hydroxy (09/29/2024 [...] order comments [place] [address] * (ABNORMAL) CBC and Differential (09/29/2024 7:12 [...] order comments [place] [address] * (ABNORMAL) BUN (09/29/2024 7:12 AM EDT) BUN 25(H) 9 - 16 mg/dL See order comments 09/29/2024 7:12 AM EDT 09/29/2024 7:12 AM EDT Jeison Bhakta MD LAB BLOOD ORDERABLES Final Re sult [place] See order comments [place] [address] * Phosphorus (09/29/2024 7:12 AM EDT) Phosphorus, Serum 3.3 2.7 - 4.5 mg/dL See order comments Blood specimen (specimen) Venous blood / Unknown 09/29/2024 7:12 AM EDT 09/29/2024 7:12 AM EDT us Jeison Bhakta MD LAB BLOOD ORDERABLES Final Re sult Performing Organization Address [facility]/State/ZIP Co de Phone Number [place] See order comments [place] [address] * Magnesium (09/29/2024 7:12 AM EDT) Magnesium 2.2 1.6 - 2.6 mg/dL See order comments Blood specimen (specimen) Venous blood / Unknown 09/29/2024 7:12 AM EDT 09/29/2024 7:12 AM EDT us Jeison Bhakta MD LAB BLOOD ORDERABLES Final Re sult Performing Organization Address [facility] Co de Phone Number [place] See order comments [place] [address] * Calcium (09/29/2024 7:12 AM EDT) Calcium 8.9 8.4 - 10.2 mg/dL See order comments Blood specimen (specimen) Venous blood / Unknown 09/29/2024 7:12 AM EDT 09/29/2024 7:12 AM EDT us Jeison Bhakta MD LAB BLOOD ORDERABLES Final Re sult Performing Organization Address [facility] Co de Phone Number [place] See order comments [place] [address] * Albumin (09/29/2024 7:12 AM EDT) Albumin 4.0 3.5 - 5.0 g/dL See order comments Blood specimen (specimen) Venous blood / Unknown 09/29/2024 7:12 AM EDT 09/29/2024 7:12 AM EDT Jesion Bhakta MD LAB BLOOD ORDERABLES Final Re sul Performing Organization Address [facility] Co de [facility] See order comments [place] [address] * (ABNORMAL) Electrolyte panel (09/29/2024 7:12 AM [...] ORDERABLES Final Re sul Performing Organization Address [facility] Co de Phone Number [place] See order comments [place] [address] * (ABNORMAL) ALT EXT LABS (09/15/2024) Iron [...] Chloride 115.0(A) 99.0 - 108.0 09/15/2024 Result [facility] Oseas West MD LAB BLOOD ORDERABLES Jeane l Result from Last 3 Months Insurance [place] Medicaid [place] Care Teams Transportation Supervisor Relationship Specialty Start Date End Date Myra Persaud DO [address] [place] [address] PCP - General Family Medicine 07/31/21
[2024-11-12 08:22] LABS: ~HepC Num1 0.29 S/CO (0.00-0.79); ~Hepatitis C Antibody Nonreactive (Nonreactive)
== END 2024-11-11 15:58 | disposition home or self-care (01) ==
LOC: HO.HHCL 15:57
PROVIDERS: PCP Internal Medicine Geriatric Medicine
DX: Z11.59 Encounter for screening for other viral diseases (principal); R79.89 Other specified abnormal findings of blood chemistry; R74.01 Elevation of levels of liver transaminase levels
CPT/HCPCS: 36415; 86803

== ENCOUNTER 2025-01-12 10:04 | Outpatient (REF) | payer MEDICARE, MEDICAID, SELFPAY ==
--- NOTE | ~2025-01-12 | US_ITS ---
EXAMINATION: US COMPLETE ABDOMEN WITH LIVER ELASTOGRAPHY CLINICAL INFORMATION: Transaminitis. COMPARISON: No prior elastography. Abdomen US 01/14/2024. Correlation made with CT abdomen and pelvis 11/19/2023. TECHNIQUE: Real-time imaging of the abdominal viscera. Noninvasive ultrasound liver fibrosis assessment is performed using Angella ElastPQ point quantification shear wave elastography (pSWE) with a C5-2 MHz transducer. Multiple elastography samples are obtained. FINDINGS: PANCREAS: Partially obscured by gas. The imaged portions of the pancreas demonstrate diffuse parenchymal calcifications in keeping with chronic pancreatitis. There is prominence of the pancreatic duct. ABDOMINAL AORTA: The mid and distal aorta are obscured by gas. The proximal aorta is normal in caliber. INFERIOR VENA CAVA: Visualized portions are normal. LIVER: The liver demonstrates normal size, contour and echogenicity. No focal lesion or intrahepatic biliary duct dilatation. The right lobe measures 11.7 cm in length. The left lobe measures 9.7 cm in length. Portal flow is towards the liver (hepatopetal). Shear wave liver elastography median stiffness is 1.33 m/s (reference: normal median stiffness is 1.3 m/s or less). IQR/median stiffness to assess sampling precision is 0.08 (reference: good quality data set is IQR/median stiffness of 0.15 or less). This indicates a quality data set. GALLBLADDER: Surgically absent. COMMON BILE DUCT: Normal in caliber measuring 0.7 cm in diameter. RIGHT KIDNEY: No hydronephrosis. No renal calculi or suspicious focal parenchymal lesions. The kidney measures 11.1 cm in maximum dimension. There is an exophytic lateral lower pole cyst measuring 1.0 cm. There is increased cortical echogenicity. LEFT KIDNEY: No hydronephrosis. No renal calculi or suspicious focal parenchymal lesions. The kidney measures 12.6 cm in maximum dimension. There is increased cortical echogenicity. SPLEEN: Unremarkable. The spleen measures 7.8 cm in maximum dimension. FREE FLUID: None. US/US abdomen comp w elastography IMPRESSION: 1. Normal-appearing liver. No suspicious hepatic lesion. 2. Liver elastography: In the absence of other known clinical signs, measurements rule out compensated advanced chronic liver disease. If there are known clinical signs, further testing may be needed for confirmation. 3. Findings of chronic pancreatitis, with prominence of the pancreatic duct. 4. Mild increased cortical echogenicity of the kidneys, suggesting intrinsic renal disease. 5. Cholecystectomy. REFERENCE: Society of Radiologists in Ultrasound Liver Stiffness Thresholds (2019): LIVER STIFFNESS THRESHOLDS: *Liver Stiffness equal or less than 1.3 m/s: High probability of being normal. *Liver Stiffness less than 1.7 m/s: In the absence of other known clinical signs, rules out compensated advanced chronic liver disease. *Liver Stiffness 1.7-2.1 m/s: Suggestive of compensated advanced chronic liver disease but need further test for confirmation. *Liver Stiffness over 2.1 m/s: Rules in compensated advanced chronic liver disease. *Liver Stiffness over 2.4 m/s: Suggestive of clinically significant portal hypertension. QUALITY OF DATA SET: *IQR/Median value equal or less than 0.15 implies a quality data set. *IQR/Median value over 0.15 implies a poor quality data set. SIGNIFICANT CHANGE FROM PRIOR EXAM: Significant change if liver stiffness measurement is 10% or greater from prior exam. OTHER CONSIDERATIONS: The stage of liver fibrosis may be overestimated in the setting of acute hepatitis, liver inflammation, elevated liver function tests, hepatic vascular congestion, obstructive cholestasis, non-fasting state, and infiltrative diseases such as amyloidosis and lymphoma. In some patients with NAFLD, the liver stiffness thresholds for compensated advanced chronic liver disease may be lower. In causes other than viral hepatitis and NAFLD, liver stiffness thresholds are not well established. Electronically signed by: Jayme Steve MD 01/12/2025 11:38 AM EDT
--- OUTSIDE RECORDS SUMMARY | 2025-01-12 12:03 | XMS_ITS | Encounter Summary ---
Author Organization [employer] Address [address] [place] [address] 7t [place] [address] Care Team Providers Care Speed Reading Teacher Name Role Phone Myra Persaud DO Primary Care Provider [phone] Elsi Nolasco PharmD Unavailable [phone] Name, Santosh AVALOS Primary Care Provider [phone] Reason for Visit * Reason Onset Date Comments PT1 08/10/2023 Encounter Details Date Type Department Care Team ([facility] st Contact Info) Description 08/10/2023 Telephone [facility] MEDICINE [address] [place], [place] [phone] Myra Persaud DO [address] [place], [place] [phone] PT1 Social History Tobacco Use Types Packs/Day [...] / denial letter via mail. PT-1 Request [id number] Authorized [facility] PT-1 Request [id number] Pending - [facility] Pulmonology PT-1 Request [id number] Pending - [facility] Gastro [address] PT-1 Request [id number] Authorized [facility] [place] [facility] * Telephone Encounter - Laureen Max - 08/10/2023 9:09 AM EDT 1.)Patient calling requesting PT1 Home Address verified: Y/N: Yes Provider name or facility name: [facility] Facility Address: [address] [place] [address] Escort needed: Y/N: No Do you have a wheelchair: Y/N: No If yes- Manual or electric: no Visits: 2-3 visit a month 2.)Patient calling requesting PT1 Home Address verified: Y/N: Yes Provider name or facility name: [facility] Facility Address: [address] [place] [address] Escort needed: Y/N: No Do you have a wheelchair: Y/N: No If yes- Manual or electric: no Visits: 2-3 visit a month 3.)Patient calling requesting PT1 Home Address verified: Y/N: Yes Provider name or facility name: [facility] Facility Address: [address] [place] [address] Dr [address] Floor, [place] [address] Escort needed: Y/N: No Do you have a wheelchair: Y/N: No If yes- Manual or electric: no Visits: 2-3 visit a month 4.)Patient calling requesting PT1 Home Address verified: Y/N: Yes Provider name or facility name: [facility] Vascular Facility Address: [address], [address] [place] [address] Escort needed: Y/N: No Do you have a wheelchair: Y/N: No If yes- Manual or electric: no Visits: 2-3 visit a month documented in this encounter Plan of Treatment Upcoming Encounters Date Type Department Care Team (Late st Contact Info) Description 01/17/2025 10:15 AM EDT Office Visit [facility] MEDICINE [address] [place] [address] Name, MD Santosh [address] [place] [address] 01/26/2025 9:00 AM EDT Medication Management [facility] MEDICINE [address] [place] [address] Elsi Nolasco, PharmD [address] [place] [address] 05/02/2025 2:00 PM EST Office Visit [facility] OPTOMETRY [address] [place] [address] Helene Greene OD [address] [place] [address] documented as of this encounter Goals Goal Patient Goal Type Associated Problems Recent Progress Patient-Stated? Author Hemoglobin A1c < 7.5 Result Component 8.4( 3:35 PM EDT) No Dellogono, Shady, PharmDanielle Record your blood sugar as directed Result Component No Elsi Nolasco PharmD documented as of this encounter Visit Diagnoses Not on filedocumented in this encounter Additional Health Concerns Assessment Noted Time PHQ-9 Depression Total Score: 1 08/03/19 24 10:16 AM EDT documented as of this encounter Care Teams Speed Reading Teacher Relationship Specialty Start Date End Date Myra Persaud DO [address] [place] [address] PCP - General Family Medicine 10/18/13 10/30/24 Name, MD Santosh [address] [place] [address] PCP - General Internal Medicine 10/31/24 Elsi Nolasco PharmD [address] [place] [address] Pharmacist Internal Medicine 11/24/22 documented as of this encounter
--- OUTSIDE RECORDS SUMMARY | 2025-01-12 12:04 | XMS_ITS | Encounter Summary ---
Author Organization [employer] Address [address] [place] [address] 7t [place] [address] Care Team Providers Care Rotary Saw Operator Name Role Phone Myra Persaud DO Primary Care Provider [phone] Elsi Nolasco PharmD Unavailable [phone] Name, Santosh AVALOS Primary Care Provider Reason for Visit * Reason Onset Date Comments PT1 10/08/2023 Encounter Details Date Type Department Care Team ([facility] st Contact Info) Description 10/08/2023 Telephone [facility] MEDICINE [address] [place], [place] [phone] Myra Persaud DO [address] [place], [place] [phone] PT1 Social History Tobacco Use Types Packs/Day [...] Y/N: Yes Provider name or facility name: [facility] Facility Address: [address] [place] [address] Escort needed: Y/N: No Do you have a wheelchair: Y/N: No If yes- Manual or electric: no Visits: 4-5 times a month 2.)Home Address verified: Y/N: Yes Provider name or facility name: [facility] Facility Address: [address] [place] [address] Escort needed: Y/N: No Do you have a wheelchair: Y/N: No If yes- Manual or electric: Visits: 7-8 times a month documented in this encounter Plan of Treatment Upcoming Encounters Date Type Department Care Team ([facility] st Contact Info) Description 01/17/2025 10:15 AM EDT Office Visit [facility] MEDICINE [address] [place] [address] Name, MD Santosh [address] [place] [address] 01/26/2025 9:00 AM EDT Medication Management [facility] MEDICINE [address] [place] [address] Elsi Nolasco PharmD [address] [place] [address] 05/02/2025 2:00 PM EST Office Visit [facility] OPTOMETRY [address] [place] [address] Jc, Helene, OD [address] [place] [address] documented as of this encounter Goals Goal Patient Goal Type Associated Problems Recent Progress Patient-Stated? Author Hemoglobin A1c < 7.5 Result Component 8.4( 3:35 PM EDT) No Shady Slade PharmDanielle Record your blood sugar as directed Result Component No Elsi Nolasco PharmD documented as of this encounter Visit Diagnoses Not on filedocumented in this encounter Additional Health Concerns Assessment Noted Time PHQ-9 Depression Total Score: 1 08/03/19 24 10:16 AM EDT documented as of this encounter Care Teams Rotary Saw Operator Relationship Specialty Start Date End Date Myra Persaud DO [address] [place] [address] PCP - General Family Medicine 10/18/13 10/30/24 Santosh Higgins MD [address] [place], [place] [phone] PCP - General Internal Medicine 10/31/24 Elsi Nolasco PharmD [address] [place], [place] [phone] Pharmacist Internal Medicine 11/24/22 documented as of this encounter
--- OUTSIDE RECORDS SUMMARY | 2025-01-12 12:04 | XMS_ITS | Encounter Summary ---
Author Organization [email or web address] Address [address] [place] [address] 7t [place] [address] Care Team Providers Care First Mate Name Role Phone Myra Persaud DO Primary Care Provider [phone] DellogShady lópez PharmD Unavailable Unavail able PuElsi gama PharmD Unavailable [phone] Santosh Higgins MD Primary Care Provider [phone] Encounter Details Date Type Department Care Team (Late st Contact Info) Description 04/10/2022 Orders Only [facility] CHC MED & PEDS [address] [place], [place] [phone] Myra Bland LPN Social History Tobacco Use [...] Description 01/17/2025 10:15 AM EDT Office Visit [facility] MEDICINE [address] [place] [phone] Santosh Higgins MD [address] [place] [phone] 01/26/2025 9:00 AM EDT Medication Management [facility] MEDICINE [address] [place] [phone] Puia, Elsi, PharmD 230 [place] [address] 05/02/2025 2:00 PM EST Office Visit [facility] OPTOMETRY [address] [place], [place] [phone] Jc Helene, OD [address] [place] [address] documented as of this encounter Visit Diagnoses Not on filedocumented in this encounter Care Teams First Mate Relationship Specialty Start Date End Date Myra Persaud DO [address] [place] [address] PCP - General Family Medicine 10/18/13 10/30/24 Santosh Higgins MD [address] [place] [address] PCP - General Internal Medicine 10/31/24 Shady Slade PharmD [address] [place] [address] Pharmacist Internal Medicine 06/09/22 11/23/22 Elsi Nolasco PharmD [address] [place] [phone] Pharmacist Internal Medicine 11/24/22 documented as of this encounter
--- OUTSIDE RECORDS SUMMARY | 2025-01-12 12:04 | XMS_ITS | Encounter Summary ---
Author Organization [employer] Address [address] [place] [address] 7t [place] [address] Care Team Providers Care Instrument Setter Name Role Phone Myra Persaud DO Primary Care Provider [phone] Elsi Nolasco PharmD Unavailable [phone] Name, Santosh AVALOS Primary Care Provider [phone] Reason for Visit * Reason Onset Date Comments PT1 07/13/2024 Encounter Details Date Type Department Care Team ([facility] st Contact Info) Description 07/13/2024 Telephone [facility] MEDICINE [address] [place], [place] [phone] Myra Persaud DO [address] [place], [place] [phone] PT1 Social History Tobacco Use Types Packs/Day [...] Y/N: Yes Provider name or facility name: [facility] Facility Address: [address] [place] [address] Escort needed: Y/N: No Do you have a wheelchair: Y/N: No If yes- Manual or electric: no Visits: 2-3 visit a month 2.)Home Address verified: Y/N: Yes Provider name or facility name: [facility] Facility Address: [address] [place] [address] Escort needed: Y/N: No Do you have a wheelchair: Y/N: No If yes- Manual or electric: Visits: 7-8 times a month documented in this encounter Plan of Treatment Upcoming Encounters Date Type Department Care Team ([facility] st Contact Info) Description 01/17/2025 10:15 AM EDT Office Visit [facility] MEDICINE [address] [place] [address] NameSantosh MD [address] [place] [address] 01/26/2025 9:00 AM EDT Medication Management [facility] MEDICINE [address] [place] [address] Elsi Nolasco PharmD [address] [place] [address] 05/02/2025 2:00 PM EST Office Visit [facility] OPTOMETRY [address] [place] [address] Jc, Helene, OD [address] [place] [address] documented as of this encounter Goals Goal Patient Goal Type Associated Problems Recent Progress Patient-Stated? Author Hemoglobin A1c < 7.5 Result Component 8.4( 3:35 PM EDT) No Shady Slade PharmD Record your blood sugar as directed Result Component No Elsi Nolasco PharmD documented as of this encounter Visit Diagnoses Not on filedocumented in this encounter Additional Health Concerns Assessment Noted Time PHQ-9 Depression Total Score: 1 08/03/19 24 10:16 AM EDT documented as of this encounter Care Teams Instrument Setter Relationship Specialty Start Date End Date Myra Persaud DO [address] [place] [address] PCP - General Family Medicine 10/18/13 10/30/24 Santosh Higgins MD [address] [place] [address] [phone] PCP - General Internal Medicine 10/31/24 Elsi Nolasco PharmD [address] [place] [phone] Pharmacist Internal Medicine 11/24/22 documented as of this encounter
--- OUTSIDE RECORDS SUMMARY | 2025-01-12 12:04 | XMS_ITS | Encounter Summary ---
Author Organization [employer] Address [address] [facility] 7t [place] [address] Care Team Providers Care Junior High Math Teacher Name Role Phone Myra Persaud DO Primary Care Provider [phone] Elsi Nolasco PharmD Unavailable [phone] Name, Santosh AVALOS Primary Care Provider [phone] Encounter Details Date Type Department Care Team (Late st Contact Info) Description 09/09/2023 Orders Only [facility] OPTOMETRY [address] [place] [address] Jc, Helene, OD [address] [place] [address] Presbyopia (Primary Dx) Social History Tobacco Use [...] is your housing situation today? I have rosimariel guan 07/17/[address] you [...] Description 01/17/2025 10:15 AM EDT Office Visit [facility] MEDICINE [address] [place] [address] Name, MD Santosh [address] [place] [address] 01/26/2025 9:00 AM EDT Medication Management [facility] MEDICINE [address] [place] [address] Elsi Nolasco PharmD [address] [place] [address] 05/02/2025 2:00 PM EST Office Visit [facility] OPTOMETRY [address] [place] [address] Jc, Helene, OD [address] [place] [address] documented as of this encounter Goals Goal Patient Goal Type Associated Problems Recent Progress Patient-Stated? Author Hemoglobin A1c < 7.5 Result Component 8.4( 3:35 PM EDT) No Shady Slade, PharmD Record your blood sugar as directed Result Component No Elsi Nolasco PharmD documented as of this encounter Visit Diagnoses Diagnosis Presbyopia- Primary documented in this encounter Additional Health Concerns Assessment Noted Time PHQ-9 Depression Total Score: 1 08/03/19 24 10:16 AM EDT documented as of this encounter Care Teams Junior High Math Teacher Relationship Specialty Start Date End Date Myra Persaud DO [address] [place] [address] PCP - General Family Medicine 10/18/13 10/30/24 Santosh Higgins MD [address] [place] [address] PCP - General Internal Medicine 10/31/24 Elsi Nolasco PharmD [address] [place] [address] Pharmacist Internal Medicine 11/24/22 documented as of this encounter
--- OUTSIDE RECORDS SUMMARY | 2025-01-12 12:04 | XMS_ITS | Encounter Summary ---
Author Organization [facility] Address [address] [place] [address] 7t [place] [address] Care Team Providers Care Antisqueak Applier Name Role Phone Myra Persaud Primary Care Provider [phone] DelShady wong PharmD Unavailable Unavail able Elsi Nolasco PharmD Unavailable [phone] Santosh Higgins MD Primary Care Provider [phone] Encounter Details Date Type Department Care Team (Late st Contact Info) Description 04/09/2022 Orders Only [facility] MEDICINE [address] [place] [phone] Patricia Hogan LPN Social History Tobacco Use [...] Description 01/17/2025 10:15 AM EDT Office Visit [facility] MEDICINE [address] [place] [address] [phone] Santosh Higgins MD [address] [place] [address] 01/26/2025 9:00 AM EDT Medication Management [facility] MEDICINE [address] [place] [address] Elsi Nolasco, PharmD [address] [place] [address] 05/02/2025 2:00 PM EST Office Visit [facility] OPTOMETRY [address] [place], [place] [phone] Jc, Helene, OD [address] [place] [address] documented as of this encounter Visit Diagnoses Not on filedocumented in this encounter Care Teams Antisqueak Applier Relationship Specialty Start Date End Date Myra Persaud DO [address] [place] [address] PCP - General Family Medicine 10/18/13 10/30/24 Santosh Higgins MD [address] [place] [address] [phone] PCP - General Internal Medicine 10/31/24 Shady Slade, PharmD [address] [place] [address] Pharmacist Internal Medicine 06/09/22 11/23/22 Elsi Nolasco PharmD [address] [place] [address] Pharmacist Internal Medicine 11/24/22 documented as of this encounter
--- OUTSIDE RECORDS SUMMARY | 2025-01-12 12:04 | XMS_ITS | Clinical Summary ---
Author Organization [employer] Address [address] [place] [address] [address] [place] [address] Care Team Providers Care Chemical Production Engineer Name Role Phone Elsi Nolasco PharmD Unavailable [phone] Name, Santosh AVALOS Primary Care Provider [phone] Allergies Active Allergy Reactions Criticality Noted Date Comments Simvastatin 07/11/2010 Other reaction(s): elevated LFTs Medications amLODIPine (Norvasc) 2.5 MG tablet Take 2.5 mg by mouth Once daily. 023 Active albuterol 108 (90 Base) MCG/ACT inhaler INHALE 2 PUFFS EVERY 4 TO 6 HOURS NEEDED FOR COUGH, WHEEZING, OR SHORTNESS OF BREATH 18 g 11 023 Active Zenpep 3000-83786 units capsule delayed-release particles capsule TAKE 2 CAPSULES BY MOUTH THREE TIMES DAILY WITH MEALS 024 Active calcitriol (Rocaltrol) 0.25 MCG capsule TAKE 1 CAPSULE BY MOUTH EVERY OTHER DAY IN THE MORNING 024 Active ergocalciferol (Vitamin D2) 1.25 MG (65003 UT) capsule TAKE 1 CAPSULE BY MOUTH EVERY MONTH 024 Active ondansetron ODT (Zofran-ODT) 4 MG disintegrating tabletIndications: Acute gastritis, presence of bleeding unspecified, unspecified gastritis type Take 2 tablets (8 mg) by mouth every 12 (twelve) hours if needed for nausea or vomiting. 20 tablet 024 Active nitroglycerin (Nitrostat) 0.[address] 1 tablet (0.4 mg) under the tongue every 5 (five) minutes if needed for chest pain. X 3 doses, advised call 911 if no relief 25 tablet Active Aspirin Low Dose 81 MG EC tabletIndications: Type 2 diabetes mellitus with other specified complication, unspecified whether senior care insulin use ([facility]) TAKE 1 TABLET BY MOUTH EVERY MORNING 90 tablet 3 Active glucose 4 g chewable tabletIndications: Type 2 diabetes mellitus with stage 4 chronic kidney disease, with long-term current use of insulin ([facility]) Chew 4 tablets as directed for low blood sugar (< 70 mg/dL). Repeat as needed. 40 tablet 5 Active Linzess 145 MCG capsule Take 1 capsule by mouth Once per day. Active Alcohol Swabs (Alcohol Prep) 70 % padsIndications:Ty pe 2 diabetes mellitus with stage 4 chronic kidney disease, with long-term current use of insulin ([facility]) Use prior 6 times daily prior to BG testing & insulin administration 200 each Active Fluticasone Furoate-Vilanterol (Breo Ellipta) 200-25 MCG/ACT aerosol powder INHALE 1 PUFF BY MOUTH EVERY DAY. RINSE MOUTH AFTER USING. 1 each Active docusate sodium (Colace) 100 MG capsuleIndications [...] disease, with long-term current use of insulin ([facility]) Administer 3 mg via 1 device into the nostril for hypoglycemia with loss of consciousness. If no response after 15 minutes administer an additional dose via 2nd device into other nostril. 2 each 025 Active amitriptyline (Elavil) 10 MG tablet TAKE 1 TABLET BY MOUTH AT BEDTIME 30 tablet 5 025 Active calcium carbonate (Calcium Antacid) 500 MG chewable tabletIndications: Osteopenia, unspecified location CHEW 1 TO BURN BY MOUTH TWICE DAILY IN THE MORNING AND IN THE EVENING FOR HEARTBURN 180 tablet 1 025 Active pantoprazole (ProtoNix) 40 MG EC tabletIndications: Chronic gastroesophageal reflux disease TAKE 1 TABLET BY MOUTH TWICE DAILY IN THE MORNING AND IN THE EVENING WITH FOOD 60 tablet 7 025 Active loratadine (Claritin) 10 MG tabletIndications: Allergic rhinitis, unspecified seasonality, unspecified trigger TAKE 1 TABLET BY MOUTH EVERY MORNING 90 tablet 1 Active insulin degludec (Tresiba FlexTouch) 100 UNIT/ML injectionIndicatio ns:Type 2 diabetes mellitus with stage 4 chronic kidney disease, with long-term current use of insulin ([facility]) Inject 34 Units under the skin in the evening. If hypoBG persists, decrease further to 30 units & call office. 15 mL Active insulin pen needle (BD Pen Needle Kaylene Ultrafine) 32G x 4 mm miscIndications:Ty pe 2 diabetes mellitus with stage 4 chronic kidney disease, with long-term current use of insulin ([facility]) Use daily for insulin injection 100 each 3 025 Active Jardiance 10 MGIndications:Type 2 diabetes mellitus with stage 4 chronic kidney disease, with long-term current use of insulin ([facility]) TAKE 1 TABLET BY MOUTH EVERY MORNING 30 tablet 5 Active TRUEplus Lancets 33G miscIndications:Ty pe 2 diabetes mellitus without complications ([facility]) TEST BLOOD SUGAR THREE TIMES DAILY 100 each 025 Active FREESTYLE LITE test stripIndications:T ype 2 diabetes mellitus without complications ([facility]) TEST BLOOD SUGAR THREE TIMES DAILY 100 strip 025 Active folic acid (Folvite) 1 MG tablet TAKE 1 TABLET BY MOUTH EVERY MORNING 30 tablet 11 025 Active gabapentin (Neurontin) 100 MG capsule TAKE 1 CAPSULE BY MOUTH AT BEDTIME 30 capsule 5 025 Active sucralfate (Carafate) 1 g tabletIndications: Acute gastritis, presence of bleeding unspecified, unspecified gastritis type TAKE 1 TABLET BY MOUTH TWICE DAILY IN THE MORNING AND IN THE EVENING BEFORE MEALS 60 tablet 3 025 Active FT Gas Relief Ultra Strength 180 MG capsule TAKE 1 CAPSULE BY MOUTH EVERY 8 HOURS NEEDED FOR GAS 30 capsule 2 025 Active acetaminophen (Tylenol 8 Hour) 650 MG ER tablet TAKE 1 TABLET BY MOUTH EVERY 8 HOURS NEEDED FOR PAIN 40 tablet 2 024 01/11 Discontinued( Med list cleanup (will not trigger notification to Pharmacy)) clindamycin (Cleocin) 300 MG capsule Take 2 tabs (600mg) 1 hour prior to dental procedure 2 capsule 3 024 01/11 Discontinued( Med list cleanup (will not trigger notification to Pharmacy)) sucralfate (Carafate) 1 g tabletIndications: Acute gastritis, presence of bleeding unspecified, unspecified gastritis type TAKE 1 TABLET BY MOUTH TWICE DAILY IN THE MORNING AND IN THE EVENING BEFORE MEALS 60 tablet 3 025 12/26 Discontinued simethicone (Mylicon,Gas-X) 180 MG capsule Take 1 capsule (180 mg) by mouth every 8 (eight) hours if needed for flatulence. 30 capsule 2 025 01/03 Discontinued Active Problems Problem Noted Date Diagnosed [...] maintenance 08/03/2023 Chronic gastroesophageal reflux disease 12/25/19 23 Renal osteodystrophy 06/02/2022 Chronic pancreatitis ([facility]) 05/14/2022 History of non-ST elevation myocardial infarctio n (NSTEMI) 05/14/2022 Anemia 05/14/2022 Chronic kidney disease, stage 4 (severe) ([facility]/ C) 05/14/2022 Nonischemic cardiomyopathy ([facility]) 09/10/2017 Type 2 diabetes mellitus 05/15/2016 Ascending aorta dilatation 05/30/2015 Female stress incontinence 02/26/2015 History of alcohol dependence ([facility]) 11/30/20 15 Hyperlipidemia 02/26/2015 Essential hypertension 02/26/2015 Lagophthalmos 02/26/2015 [...] Encounters Date Type Department Care Team Description 01/10/2025 Patient Outreach [facility] [address] [place] [address] Name, MD Santosh Pre-visit Planning (SDOH was already completed ) 01/05/2025 Orders Only GENERIC EXTERNAL DATA DEPARTMENT Provider, Generic External Data 01/01/2025 Refill [facility] [place] [address] Myra Persaud DO 12/24/2024 Refill [facility] [place] [address] Myra Persaud DO Acute gastritis, presence of bleeding unspecified, unspecified gastritis type 12/08/2024 Telephone [facility] [place] [address] Kade Glass MA Nov Recalls TP 11/30/2024 Telephone [facility] [place] [address] Santosh Higgins MD PT 1 11/23/2024 Refill [facility] [place] [address] Dena Rogers MD 11/23/2024 Refill [facility] [place] [address] Myra Persaud DO 11/11/2024 3:45 PM EDT Office Visit [facility] [place] [address] Vlad Jacobo CNP Type 2 diabetes mellitus without complication, with long-term current use of insulin ([facility]) (Primary Dx); Elevated LFTs; Transaminitis 11/11/2024 Travel 11/10/2024 Telephone [facility] [place] [address] Maria Luisa Sheridan MA CHARTPREP 11/02/2024 Orders Only GENERIC EXTERNAL DATA DEPARTMENT Provider, Generic External Data 10/31/2024 Telephone [facility] [place] [address] Myra Persaud DO 10/29/2024 Refill [facility] [place] [address] Myra Persaud DO Type 2 diabetes mellitus without complications (CMS/HCC) 10/21/2024 Results Follow-Up [facility] [place] [address] Elsi Nolasco PharmD Comprehensive Metabolic Panel, Hepatic Function Panel, Lipid Panel, Standard, Additional followed-up results: 4 2024 Orders Only GENERIC EXTERNAL DATA DEPARTMENT Provider, Generic External Data 2024 Refill [facility] [address] [place] [address] Myra Persaud DO 2024 Travel from Last 3 Months Immunizations Immunization Administration Dates Next Due Hep B, adult [...] Answer Date Recorded Patient Health Questionnaire-9 Score 3 11/11/2024 Patient Health Questionnaire-9 Score 3 11/11/2024 Last PHQ-9: Questionnaire Data Not on file 0 11/11/2024 Housing Stability Answer Date Recorded What is [...] Answer Date Recorded Patient Health Questionnaire-2 Score 3 11/11/2024 Internet Access Answer Date Recorded Internet Access [...] Sign Reading Time Taken Comments Blood Pressure 150/84 11/11/2024 3:34 PM EDT Pulse 73 11/11/2024 3:34 PM EDT Temperature 37.3 C (99.2 F) 11/11/2024 3:34 PM EDT Respiratory Rate 20 11/11/2024 3:34 PM EDT Oxygen Saturation 98% 11/11/2024 3:34 PM EDT Inhaled Oxygen Concentration - - Weight 82.8 kg (182 lb 8 oz) 11/11/2024 3:34 PM EDT Height 151.6 cm (4' 11.7 ) 11/11/2024 3:34 PM ED T Body Mass Index 36 11/11/2024 3:34 PM EDT Plan of Treatment Upcoming Encounters Date Type Department Care Team (Late st Contact Info) Description 01/17/2025 10:15 AM EDT Office Visit [facility] [address] [place] [address] Name, MD Santosh [address] [place] [address] 01/26/2025 9:00 AM EDT Medication Management [facility] [address] [place] [address] FloriaElsi, PharmD [address] [place] [address] 05/02/2025 2:00 PM EST Office Visit [facility] [address] [place] [address] Jc, Helene, OD [address] [place] [address] Health Maintenance Due Date Last Done Comments CT Colonography 1955 Dental Oral Exam 1955 Dental Prophylaxis 1955 FIT DNA/Cologuard 1955 FIT 1955 Sigmoidoscopy 1955 Diabetes: Foot Exam 1966 Hepatitis A Vaccines (1 of 2 - Risk 2-dose series) 10/21/1975 FOBT 11/07/2020 11/08/2019 COVID-19 Vaccine ( season) 2024 01/15/2024, 05/14/2022, 06/07/2021, Additional history exists Influenza Vaccine (#1) 2024 , 12/24/2022, 05/14/2022, Additional history exists Dental X-Ray: Bitewings 12/02/2024 12/02/2023, 11/11 Diabetes: Hemoglobin A1C 02/11/2025 025, 09/23/2024, 06/22/2024, Additional history exists SDOH Screening 06/20/2025 06/20/2024 Lipid Panel 2025 2024, 06/28, 05/14/2022, Additional history exists Mammogram 10/21/2025 10/21/2024, 09/27, 10/03/2022, Additional history exists Alcohol/Substance Use Screening 11/11/2025 11/11/2024 Depression Screening 11/11/2025 11/11/2024, 11/12/19 Tobacco Screening 11/11/2025 11/11/2024 Eye Exam 02/02/2026 02/03/2024, 08/2023, 02/03/2024, Additional history exists Dental X-Ray: Full Mouth 12/02/2026 12/02/2023, 10/28 Colonoscopy 07/26/2027 07/25/2022 Colorectal Cancer Screening 07/26/2027 DTaP/Tdap/Td Vaccines (2 - Td or Tdap) 06/08/2031 06/07/2021, 03/30/2007 Zoster Vaccines Completed 04/19/2020, 02/17/2020 Cervical Cancer Screening Discontinued HPV/Cotest Discontinued 06/25/2021 Pap Smear Discontinued 06/25/2021 Pneumococcal Vaccine: 50+ Years Completed 06/17/2022, 09/03/2017, 03/18/2012 RSV Patients and Patients Aged 60 years or older Completed 03/25/2023 Hepatitis B Vaccines Completed 03/24/2024, 10/07/2023, 08/27/2023 Hepatitis C Screening Completed 11/11/2024 , 09/09/2021, 09/09/2021, Additional history exists HIB Vaccines Aged Out No longer eligi ble based on patient's age to complete this topic HPV Vaccines Aged Out No longer eligi ble based on patient's age to complete this topic IPV Vaccines Aged Out No longer eligi ble based on patient's age to complete this topic Meningococcal B Vaccine Aged Out No l onger eligible based on patient's age to complete [...] Procedure Name Priority Date/Time Associated Diagnosis Comments US ABDOMEN COMPLETE WITH ELASTOGRAPHY Routine 01/12/2025 10:39 AM EDT Elevated LFTs Transaminitis CBC WITH AUTO DIFFERENTIAL Routine 01/05/2025 11:06 AM EDT HEPATITIS C AB W/REFL TO HCV RNA, QN, PCR Routine 11/11/2024 4:00 PM EDT Elevated LFTs Transaminitis POCT GLYCATED HEMOGLOBIN, TOTAL Routine 11/11/2024 3:35 PM EDT Type 2 diabetes mellitus without complication, with long-term current use of insulin (CMS/HCC) POCT GLUCOSE Routine 11/11/2024 3:35 PM EDT Type 2 diabetes mellitus without complication, with long-term current use of insulin (CMS/HCC) BASIC METABOLIC PANEL Routine 11/02/2024 3:57 PM EDT CBC WITH AUTO DIFFERENTIAL Routine 11/02/2024 3:57 PM EDT HEPATIC FUNCTION PANEL Routine 11/02/2024 3:57 PM EDT Elevated LFTs BI MAMMOGRAM SCREENING TOMOSYNTHESIS BILATERAL Routine 10/21/2024 12:55 PM EDT ALBUMIN, RANDOM URINE W/CREATININE Routine 2024 9:07 AM EDT SLIDE REVIEW Routine 2024 9:07 AM EDT CBC WITH AUTO DIFFERENTIAL Routine 2024 9:07 AM EDT LIPID PANEL, STANDARD Routine 2024 9:07 AM EDT HEPATIC FUNCTION PANEL Routine 2024 9:07 AM EDT COMPREHENSIVE METABOLIC PANEL Routine 2024 9:07 AM EDT CBC WITH AUTO DIFFERENTIAL Routine 2024 9:07 AM EDT INTRAORAL - COMPLETE SERIES OF RADIOGRAPHIC IMAGES Routine 12/02/2023 8:00 AM EDT Extruded tooth Acute gingival inflammation Gingival bleeding Missing teeth, acquired Dental abscess Dental calculus Generalized severe acute periodontitis HM COLONOSCOPY Routine 07/25/2022 HPV MRNA E6/E7 REFLEX TO HPV 16, 18/45 Routine 06/25/2021 9:16 AM EDT THINPREP IMAGING SYSTEM PAP Routine 06/25/2021 9:16 AM EDT OCCULT BLOOD, FECAL, IMMUNOASSAY Routine 11/08/2019 9:39 AM EDT from Last 3 Months or Most Recently Relevant to Health Maintenance Results * US Abdomen Comp w elastography (01/12/2025 10:39 AM EDT) Anatomical Region Laterality Modality Abdomen Ultrasound 01/12/2025 10:3 9 AM EDT Narrative 01/12/2025 11:41 AM EDT [place] [address] Ultrasound Report Signed Patient: Amy Amor MR#: [id number] : 1955 Acct:[id number] Age/Sex: 69 / F ADM Date: 01/12/25 Loc: HO.US Attending Dr: Vlad Jacobo [employer]CH[employer]ER Ordering Physician: Vlad Jacobo NP Date of Service: 01/12/25 Procedure(s): US abdomen comp w elastography Accession Number(s): [id number] cc: Name,Snatosh AVALOS; Vlad Jacobo NP Reason for Exam: transaminitis EXAMINATION: US COMPLETE ABDOMEN WITH LIVER ELASTOGRAPHY CLINICAL INFORMATION: Transaminitis. COMPARISON: No prior elastography. Abdomen US 01/14/2024. Correlation made with CT abdomen and pelvis 11/19/2023. TECHNIQUE: Real-time imaging of the abdominal viscera. Noninvasive ultrasound liver fibrosis assessment is performed using [employer] ElastPQ point quantification shear wave elastography (pSWE) with a C5-2 MHz transducer. Multiple elastography samples are obtained. FINDINGS: PANCREAS: Partially obscured by gas. The imaged portions of the pancreas demonstrate diffuse parenchymal calcifications in keeping with chronic pancreatitis. There is prominence of the pancreatic duct. ABDOMINAL AORTA: The mid and distal aorta are obscured by gas. The proximal aorta is normal in caliber. INFERIOR VENA CAVA: Visualized portions are normal. LIVER: The liver demonstrates normal size, contour and echogenicity. No focal lesion or intrahepatic biliary duct dilatation. The right lobe measures 11.7 cm in length. The left lobe measures 9.7 cm in length. Portal flow is towards the liver (hepatopetal). Shear wave liver elastography median stiffness is 1.33 m/s (reference: normal median stiffness is 1.3 m/s or less). IQR/median stiffness to assess sampling precision is 0.08 (reference: good quality data set is IQR/median stiffness of 0.15 or less). This indicates a quality data set. GALLBLADDER: Surgically absent. COMMON BILE DUCT: Normal in caliber measuring 0.7 cm in diameter. RIGHT KIDNEY: No hydronephrosis. No renal calculi or suspicious focal parenchymal lesions. The kidney measures 11.1 cm in maximum dimension. There is an exophytic lateral lower pole cyst measuring 1.0 cm. There is increased cortical echogenicity. LEFT KIDNEY: No hydronephrosis. No renal calculi or suspicious focal parenchymal lesions. The kidney measures 12.6 cm in maximum dimension. There is increased cortical echogenicity. SPLEEN: Unremarkable. The spleen measures 7.8 cm in maximum dimension. FREE FLUID: None. US/US abdomen comp w elastography IMPRESSION: 1. Normal-appearing liver. No suspicious hepatic lesion. 2. Liver elastography: In the absence of other known clinical signs, measurements rule out compensated advanced chronic liver disease. If there are known clinical signs, further testing may be needed for confirmation. 3. Findings of chronic pancreatitis, with prominence of the pancreatic duct. 4. Mild increased cortical echogenicity of the kidneys, suggesting intrinsic renal disease. 5. Cholecystectomy. REFERENCE: Society of Radiologists in Ultrasound Liver Stiffness Thresholds (2019): LIVER STIFFNESS THRESHOLDS: *Liver Stiffness equal or less than 1.3 m/s: High probability of being normal. *Liver Stiffness less than 1.7 m/s: In the absence of other known clinical signs, rules out compensated advanced chronic liver disease. *Liver Stiffness 1.7-2.1 m/s: Suggestive of compensated advanced chronic liver disease but need further test for confirmation. *Liver Stiffness over 2.1 m/s: Rules in compensated advanced chronic liver disease. *Liver Stiffness over 2.4 m/s: Suggestive of clinically significant portal hypertension. QUALITY OF DATA SET: *IQR/Median value equal or less than 0.15 implies a quality data set. *IQR/Median value over 0.15 implies a poor quality data set. SIGNIFICANT CHANGE FROM PRIOR EXAM: Significant change if liver stiffness measurement is 10% or greater from prior exam. OTHER CONSIDERATIONS: The stage of liver fibrosis may be overestimated in the setting of acute hepatitis, liver inflammation, elevated liver function tests, hepatic vascular congestion, obstructive cholestasis, non-fasting state, and infiltrative diseases such as amyloidosis and lymphoma. In some patients with NAFLD, the liver stiffness thresholds for compensated advanced chronic liver disease may be lower. In causes other than viral hepatitis and NAFLD, liver stiffness thresholds are not well established. Electronically signed by: Jayme Steve MD 01/12/2025 11:38 AM EDT Dictated By: Jayme Steve MD Signed By: <Electronically signed by Jayme Steve MD in [place]> 01/12/25 1138 DD/ 1039 TD/TT: 01/12/25 1107 Iron Worker Foreman: Procedure Note Donotuseinterpreter, Image - 01/12/[address] [address] Ultrasound Report Signed Patient: Denise LazoAmy [facility]#: [id number] : 7Acct:[id number] Age/Sex: 69 / FADM Date: 01/12/25 Loc: HO.US Attending Dr: Vlad Jacobo NP Ordering Physician: Vlad Jacobo NP Date of Service: 01/12/25 Procedure(s): US abdomen comp w elastography Accession Number(s): [id number] cc: Name,Santosh AVALOS; Vlad Jacobo NP Reason for Exam: transaminitis EXAMINATION: US COMPLETE ABDOMEN WITH LIVER ELASTOGRAPHY CLINICAL INFORMATION: Transaminitis. COMPARISON: No prior elastography. Abdomen US 01/14/2024. Correlation made with CT abdomen and pelvis 11/19/2023. TECHNIQUE: Real-time imaging of the abdominal viscera. Noninvasive ultrasound liver fibrosis assessment is performed using [employer] ElastPQ point quantification shear wave elastography (pSWE) with a C5-2 MHz transducer. Multiple elastography samples are obtained. FINDINGS: PANCREAS: Partially obscured by gas. The imaged portions of the pancreas demonstrate diffuse parenchymal calcifications in keeping with chronic pancreatitis. There is prominence of the pancreatic duct. ABDOMINAL AORTA: The mid and distal aorta are obscured by gas. The proximal aorta is normal in caliber. INFERIOR VENA CAVA: Visualized portions are normal. LIVER: The liver demonstrates normal size, contour and echogenicity. No focal lesion or intrahepatic biliary duct dilatation. The right lobe measures 11.7 cm in length. The left lobe measures 9.7 cm in length. Portal flow is towards the liver (hepatopetal). Shear wave liver elastography median stiffness is 1.33 m/s (reference: normal median stiffness is 1.3 m/s or less). IQR/median stiffness to assess sampling precision is 0.08 (reference: good quality data set is IQR/median stiffness of 0.15 or less). This indicates a quality data set. GALLBLADDER: Surgically absent. COMMON BILE DUCT: Normal in caliber measuring 0.7 cm in diameter. RIGHT KIDNEY: No hydronephrosis. No renal calculi or suspicious focal parenchymal lesions. The kidney measures 11.1 cm in maximum dimension. There is an exophytic lateral lower pole cyst measuring 1.0 cm. There is increased cortical echogenicity. LEFT KIDNEY: No hydronephrosis. No renal calculi or suspicious focal parenchymal lesions. The kidney measures 12.6 cm in maximum dimension. There is increased cortical echogenicity. SPLEEN: Unremarkable. The spleen measures 7.8 cm in maximum dimension. FREE FLUID: None. US/US abdomen comp w elastography IMPRESSION: 1. Normal-appearing liver. No suspicious hepatic lesion. 2. Liver elastography: In the absence of other known clinical signs, measurements rule out compensated advanced chronic liver disease. If there are known clinical signs, further testing may be needed for confirmation. 3. Findings of chronic pancreatitis, with prominence of the pancreatic duct. 4. Mild increased cortical echogenicity of the kidneys, suggesting intrinsic renal disease. 5. Cholecystectomy. REFERENCE: Society of Radiologists in Ultrasound Liver Stiffness Thresholds (2019): LIVER STIFFNESS THRESHOLDS: *Liver Stiffness equal or less than 1.3 m/s: High probability of being normal. *Liver Stiffness less than 1.7 m/s: In the absence of other known clinical signs, rules out compensated advanced chronic liver disease. *Liver Stiffness 1.7-2.1 m/s: Suggestive of compensated advanced chronic liver disease but need further test for confirmation. *Liver Stiffness over 2.1 m/s: Rules in compensated advanced chronic liver disease. *Liver Stiffness over 2.4 m/s: Suggestive of clinically significant portal hypertension. QUALITY OF DATA SET: *IQR/Median value equal or less than 0.15 implies a quality data set. *IQR/Median value over 0.15 implies a poor quality data set. SIGNIFICANT CHANGE FROM PRIOR EXAM: Significant change if liver stiffness measurement is 10% or greater from prior exam. OTHER CONSIDERATIONS: The stage of liver fibrosis may be overestimated in the setting of acute hepatitis, liver inflammation, elevated liver function tests, hepatic vascular congestion, obstructive cholestasis, non-fasting state, and infiltrative diseases such as amyloidosis and lymphoma. In some patients with NAFLD, the liver stiffness thresholds for compensated advanced chronic liver disease may be lower. In causes other than viral hepatitis and NAFLD, liver stiffness thresholds are not well established. Electronically signed by: Jayme Steve MD 01/12/2025 11:38 AM EDT Dictated By: Jayme Steve MD Signed By: <Electronically signed by Jayme Steve MD in OV> 01/12/25 1138 DD/ 1039 TD/TT: 01/12/25 1107 Iron Worker Foreman: [facility] IMG US PROCEDURES Edited Result - Final * (ABNORMAL) CBC auto differential (01/05/2025 11:06 AM EDT) Only the most recent of4 resultswithin the time period is included. White Blood Count 11.5(H) 4.8 - 10.8 X10*3/uL [facility] Red Blood Count 4.28 4.20 - 5.50 X10*6/uL [facility] Hemoglobin 11.9(L) 12.0 - 16.0 g/dl [facility] Hematocrit 38.5 37.0 - 47.0 % [facility] Mean Corpuscular Volume 90.0 80.0 - 98.0 fL [facility] Mean Corpuscular Hemoglobin 27.8 27.0 - 33.0 pg [facility] Mean Corpuscular HGB Conc 30.9(L) 31.0 - 35.0 g/dl [facility] Red Cell Distribution Width 14.6 11.0 - 16.0 % [facility] Platelet Count 195 160 - 400 X10*3/uL [facility] Mean Platelet Volume 10.3 9.4 - 12.3 fL [facility] Neutrophils Percent Auto 50.1 45 - 73 % [facility] Imm Gran Pct Auto 0.3 0.0 - 0.4 % [facility] Lymphocytes Percent Auto 40.1(H) 20 - 40 % [facility] Monocytes Percent Auto 5.6 2 - 11 % [facility] Eosinophils Percent Auto 3.5 0 - 4 % [facility] Basophils Percent Auto 0.4 0 - 2 % [facility] NRBC Pct Auto 0.0 0.0 - 0.2 /100WBC [facility] Neutrophils Absolute Auto 5.7 2.0 - 8.3 x10*3/uL [facility] Imm Gran Abs Auto 0.04(H) 0.00 - 0.03 X10*3/uL [facility] Lymphocytes Absolute Auto 4.6 1.2 - 4.9 X10*3/uL [facility] Monocytes Absolute Auto 0.6 0.1 - 1.2 X10*3/uL [facility] Eosinophils Absolute Auto 0.4 0.0 - 0.4 X10*3/uL [facility] Basophils Absolute Auto 0.1 0.0 - 0.2 X10*3/uL [facility] NRBC Abs Auto 0.000 0.0 - 0.012 X10*3/uL [facility] 01/05/2025 11:0 6 AM EDT 01/05/2025 11:06 AM EDT Generic External Data Provider LAB BLOOD ORDERAB LES Final Result Performing Organization Address [facility]/ZIP Co de Phone Number [facility] [address] [place] [phone] * Hepatitis C Antibody with Reflex to HCV, RNA, Quantitative, Real-Time PCR (11/11/2024 4:00 PM EDT) [facility] Hepatitis C Antibody Nonreactive Nonreactive [facility] Comment:Antibodies to HCV no t detected; does not exclude early acuteHCV infection. Blood Venous blood specimen / Unknown 11/11/2024 4:00 PM EDT 11/11/2024 5:41 PM EDT [facility] LAB BLOOD ORDERABLES Jeane l Result Performing Organization Address [facility] Co de Phone Number [facility] [address] [place] [phone] * (ABNORMAL) POCT HGB A1C (11/11/2024 3:35 PM EDT) Pathologist [facility] Hemoglobin A1C 8.4(A) 4.0 - 5.7 % QC Media Lot # [id number] Lot# Expiration Date Blood 11/11/2024 3:35 PM EDT [facility] POINT OF CARE TEST ENTER/ EDIT ORDERABLES Final Result * (ABNORMAL) POCT Glucose (11/11/2024 3:35 PM EDT) [facility] Glucose Blood, POC 340(A) 60 - 200 mg/dL QC Media Lot # [id number] Lot# Expiration Date 061 Blood Capillary blood specimen / Unknown 11/11/2024 3:35 PM EDT [facility] POINT OF CARE TEST ENTER/ EDIT ORDERABLES Final Result * (ABNORMAL) Hepatic Function Panel (11/02/2024 3:57 PM EDT) Only the most recent of2 resultswithin the time period is included. [facility] Bilirubin, Total 0.5 0.0 - 1.0 mg/dL [facility] Bilirubin, Direct 0.2 0.0 - 0.5 mg/dL [facility] Aspartate Amino Transferase 55(H) 5 - 31 U/L [facility] Alanine Aminotransferase 70(H) 0 - 31 U/L [facility] Total Protein 7.0 6.5 - 8.0 g/dL [facility] Albumin Level 4.0 3.5 - 5.0 g/dL [facility] Alkaline Phosphatase 114 39 - 117 U/L [facility] Blood Venous blood specimen / Unknown 11/02/2024 3:57 PM EDT 11/02/2024 4:34 PM EDT Result [facility] Elsi Puia PharmD LAB BLOOD ORDERABLES Final Re sult [facility] [address] [place] [phone] * (ABNORMAL) Basic Metabolic Panel (11/02/2024 3:57 PM EDT) Sodium 144 135 - 145 mmol/L [facility] Potassium 3.9 3.3 - 5.1 mmol/L [facility] Chloride 112(H) 96 - 108 mmol/L [facility] Carbon Dioxide 23 22 - 29 mmol/L [facility] Anion Gap 13 12 - 20 [facility] Urea Nitrogen (BUN) 24(H) 9 - 16 mg/dL [facility] Creatinine, Serum 1.28 0.5 - 1.4 mg/dL [facility] Estimated Glomerular Filt Rate 41 [facility] Comment:Chronic Kidney Disea se: Estimated GFR < 60 mL/min/1.83o5Cyoftp Kidney Disease: Estimated GFR < 15 mL/min/1.73m2 Glucose 75 60 - 115 mg/dL [facility] Calcium 9.6 8.4 - 10.2 mg/dL [facility] 11/02/2024 3:57 PM EDT 11/02/2024 4:34 PM EDT Myra Persaud DO LAB BLOOD ORDERABLES Final R esult [facility] [address] [place] [phone] * BI Mammogram Screening Tomosynthesis Bilateral (10/21/2024 12:55 PM EDT) Anatomical Region Laterality Modality Breast Bilateral Mammography 10/21/2024 12:5 5 PM EDT Narrative 11/01/2024 10:47 AM EDT [facility] [address] [place] [address] Mammography Report Signed Patient: Amy Amor MR#: [id number] : 1955 Acct:[id number] Age/Sex: 69 / F ADM Date: 10/21/24 Loc: [facility] Attending Dr: Myra Persaud DO Ordering Physician: Myra Persaud DO Results: 1N egative Date of Service: 10/21/24 Follow Up: 1 Year From Orig inal Mammogram Procedure(s): MM tomosynthesis screening BI Accession Number(s): [id number] cc: Myra Persaud DO EXAMINATION: MM SCREENING DIGITAL BREAST TOMOSYNTHESIS, BILATERAL CLINICAL INFORMATION: Screening. Asymptomatic. COMPARISON: Mammography: Comparison is made with available priors TECHNIQUE: Digital breast mammography with tomosynthesis is performed in both the craniocaudal and mediolateral oblique views along with computer-aided detection (CAD). FINDINGS: There are scattered areas of fibroglandular [...] target due date for their next mammogram. Electronically signed by: Renae Durbin DO 11/01/2024 10:44 AM EDT Dictated By: Renae Durbin DO Signed By: <Electronically signed by Renae Durbin DO in OV> 11/01/24 1044 DD/ 1255 TD/TT: 10/21/24 1315 Iron Worker Foreman: Procedure Note Donotuseinterpreter, Image - 11/01/2024 [place] [facility] [address] [place] [address] Mammography Report Signed Patient: Amy Amor [facility]#: [id number] : 7Acct:[id number] Age/Sex: 69 / FADM Date: 10/21/24 Loc: [facility] Attending Dr: Myra Persaud DO Ordering Physician: Myra Persaudults: 1N egative Date of Service: 10/21/24Follow Up: 1 Year From [facility] Mammogram Procedure(s): MM tomosynthesis screening BI Accession Number(s): [id number] cc: Myra Persaud DO EXAMINATION: MM SCREENING DIGITAL BREAST TOMOSYNTHESIS, BILATERAL CLINICAL INFORMATION: Screening. Asymptomatic. COMPARISON: Mammography: Comparison is made with available priors TECHNIQUE: Digital breast mammography with tomosynthesis is performed in both the craniocaudal and mediolateral oblique views along with computer-aided detection (CAD). FINDINGS: There are scattered areas of fibroglandular [...] target due date for their next mammogram. Electronically signed by: Renae Durbin DO 11/01/2024 10:44 AM EDT RP Dictated By: Renae Durbin DO Signed By: <Electronically signed by Renae Durbin DO in OV> 11/01/24 1044 DD/ 1255 TD/TT: 10/21/24 1315 Iron Worker Foreman: Myra Persaud DO IMG BI PROCEDURES Edited Res ult - Final * Slide Review (2024 9:07 AM EDT) Slide Review VERIFIED [facility] 2024 9:07 AM EDT 2024 11:18 AM EDT Myra Persaud DO LAB BLOOD ORDERABLES Final R esult [facility] [address] [place] [phone] * Albumin, Random Urine W/Creatinine (2024 9:07 AM EDT) Creatinine, Urine 144.26 mg/dL [facility] Microalbumin Urine 21.0 mg/L [facility] Microalbum Creatinine Ratio Ur 14.5 <30 ug/mg cr [facility] Comment:Albumin/Creatinine R atio Reference Ranges: Normal: < 30 ug/mg creatinine Microalbuminuria: 30 - 300 ug/mg creatinineClinical Albuminuria: > 300 ug/mg creatinine 2024 9:07 AM EDT 2024 11:12 AM EDT Myra Persaud DO LAB URINE ORDERABLES Final R esult [facility] [address] [place] [phone] * Lipid Panel, Standard (2024 9:07 AM EDT) Triglycerides 67 <150 mg/dL [facility] Comment:Desirable Triglyceri de: less than 150 mg/dLBorderline High Triglyceride 150-199 mg/dLHigh Triglyceride: 200-499 mg/dLVery High Triglyceride: greater than or equal to 5OO mg/dL Cholesterol 105 <200 mg/dL [facility] Comment:Desirable Cholestero l: less than 200 mg/dLBorderline High Cholesterol: 200-239 mg/dLHigh Cholesterol: greater than 239 mg/dL LDL Cholesterol Calculated 46 <100 mg/dL [facility] Comment:Desirable LDL: less than 100 mg/dLNear Optimal/Above Optimal LDL: 110- 129 mg/dLBorderline High LDL: 130-159 mg/dLHigh LDL: 160-189 mg/dLVery High LDL: greater than or equal to 190 mg/dL HDL Cholesterol 46 >40 mg/dL [facility] Comment:Desirable HDL: great er than 40 mg/dL Note: This HDL assay may give artificially low results in patients with liver disease. 2024 9:07 AM EDT 2024 11:18 AM EDT us Mrya Persaud DO LAB BLOOD ORDERABLES Final R esult [facility] [address] [place] [phone] [phone] * (ABNORMAL) Comprehensive Metabolic Panel (2024 9:07 AM EDT) Sodium 143 135 - 145 mmol/L [facility] Potassium 3.9 3.3 - 5.1 mmol/L [facility] Chloride 114(H) 96 - 108 mmol/L [facility] Carbon Dioxide 23 22 - 29 mmol/L [facility] Anion Gap 10(L) 12 - 20 [facility] Urea Nitrogen (BUN) 26(H) 9 - 16 mg/dL [facility] Creatinine, Serum 1.25 0.5 - 1.4 mg/dL [facility] Estimated Glomerular Filt Rate 43 [facility] Comment:Chronic Kidney Disea se: Estimated GFR < 60 mL/min/1.11h7Goxocd Kidney Disease: Estimated GFR < 15 mL/min/1.73m2 Glucose 67 60 - 115 mg/dL [facility] Calcium 9.3 8.4 - 10.2 mg/dL [facility] Bilirubin, Total 0.6 0.0 - 1.0 mg/dL [facility] Aspartate Amino Transferase 83(H) 5 - 31 U/L [facility] Alanine Aminotransferase 151(H) 0 - 31 U/L [facility] Total Protein 7.1 6.5 - 8.0 g/dL [facility] Albumin Level 4.0 3.5 - 5.0 g/dL [facility] Alkaline Phosphatase 128(H) 39 - 117 U/L [facility] 2024 9:07 AM EDT 2024 11:18 AM EDT us Generic External Data Provider LAB BLOOD ORDERAB LES Final Result [facility] [address] [place] [phone] * Hm Colonoscopy (07/25/2022) Colonoscopy Normal Normal Narrative Manisha Forbes - 07/25/2022 Repeat Colonoscopy in 5 years due to a history of adenomatous colon polyps. See external hospital admission note on 02/2024 Historical Provider MD HEALTH MAINTENANCE Final Result * THINPREP TIS PAP (06/25/2021 9:16 AM EDT) Clinical Information: None given [facility] COMMENT SEE COMMENT [facility] Comment: EXPLANATORY NOTE: The Pap is a screening test for cervical cancer. It is not a diagnostic test and is subject to false negative and false positive results. It is most reliable when a satisfactory sample, regularly obtained, is submitted with relevant clinical findings and history, and when the Pap result is evaluated along with historic and current clinical information. COMMENT: This Pap test has been evaluated with computer assisted technology. [facility] Nuclear Plant Equipment Operator : SEE COMMENT [facility] Comment: DCR, CT(ASCP) CT screening location: [place] [address] Interpretation/R esult: Negative for intraepithelial lesion or [...] DO LAB PATHOLOGY ORDERABLES Fin al Result [facility] [address] [place], [place] [address] * HPV mRNA E6/E7 REFLEX TO HPV 16, 18/45 (06/25/2021 9:16 AM EDT) HPV nRNA E6/E7 Not Detected Not Detected [facility] Comment: Methodology: Talent Management Manager-Mediated Amplification This assay detects E6/E7 viral messenger RNA (mRNA) from 14 high-risk HPV types (16,18,31,33,35,39,45,51,52,56,58,59,66,68). The analytical performance characteristics of this assay have been determined by [employer]. The modifications have not been cleared or approved by the FDA. This assay has been validated pursuant to the CLIA regulations and is used for clinical purposes. For additional information, please refer to http://education.Loomio/faq/IBP421j3 (This link if provided for information/ educational purposes only.) 06/25/2021 9:16 AM EDT Myra Persaud DO LAB CYTOLOGY ORDERABLES Jeane l Result Performing Organization Address [facility] Phone Number [facility] [address] * (ABNORMAL) OCCULT BLOOD STOOL (11/08/2019 9:39 AM EDT) OCCULT BLOOD STOOL POS(AA) NEG [facility] 11/08/2019 9:39 AM EDT Historical Provider LAB BODY FLUIDS AND STOOL S ORDERABLES Final Result Performing Organization Address [facility] Co wi Phone Number [facility] [address] from Last 3 Months or Most Recently Relevant to Health Maintenance Insurance [address] [place] [address] MEDICARE [facility] STANDARD [address] [facility] [address] [place] DENTAL-[facility] MEDICAID STAND ADULT [address] [facility] [address] [place] Care Teams Chemical Production Engineer Relationship Specialty Start Date End Date Name, MD Santosh [address] [place] [address] [place] [address] PCP - General Internal Medicine 10/31/24 Elsi Nolasco, PharmD [address] [place] [phone] Pharmacist Internal Medicine 11/24/22
--- OUTSIDE RECORDS SUMMARY | 2025-01-12 12:04 | XMS_ITS | Encounter Summary ---
Author Organization [employer] Address [address] [place] [address] 7[address] [place] [address] Care Team Providers Care Leg Man Name Role Phone Elsi Nolasco PharmD Unavailable Name, Santosh AVALOS Primary Care Provider [phone] Reason for Visit * Reason Comments Pre-visit Planning SDOH was already com pleted Encounter Details Date Type Department Care Team ([facility] st Contact Info) Description 01/10/2025 Patient Outreach [facility] [address] [place], [place] [phone] Name, MD Santosh [address] [place] [address] Pre-visit Planning (SDOH was already completed ) Social History Tobacco Use Types Packs/Day Years [...] as of this encounter Progress Notes * Sandra Mcqueen - 01/10/2025 3:20 PM EDT CC Sandra Soares placed successful outbound call to patient for pre-visit planning. Patient name and confirmed. Patient confirms appt date and time, and has transportation arrangements. Biggest concern for appointment at this time is no concerns. Appropriate screenings completed in anticipation ofappointment. documented in this encounter Plan of Treatment Upcoming Encounters Date Type Department Care Team (Late st Contact Info) Description 01/17/2025 10:15 AM EDT Office Visit [facility] MEDIC[facility] [address] [place] [phone] Name, MD Santosh [address] [place] [address] 01/26/2025 9:00 AM EDT Medication Management [facility] [address] [place] [phone] Elsi Nolasco, PharmD [address] [place] [address] 05/02/2025 2:00 PM EST Office Visit [facility] OPT[facility] [address] [place] [address] Helene Greene, DINORAH [address] [place] [address] documented as of this encounter Goals Goal [...] Assessment Noted Time PHQ-9 Depression Total Score: 3 11/12/19 25 3:37 PM EDT documented as of this encounter Care Teams Leg Man Relationship Specialty Start Date End Date Name, MD Santosh [address] [place] [address] PCP - General Internal Medicine 10/31/24 Elsi Nolasco, PharmD [address] [place] [address] Pharmacist Internal Medicine 11/24/22 documented as of this encounter
--- OUTSIDE RECORDS SUMMARY | 2025-01-12 12:04 | XMS_ITS | Encounter Summary ---
Author Organization [facility] Address [address] [place] [address] 7[address] [place] [address] Care Team Providers Care Passenger Agent Name Role Phone Myra Persaud DO Primary Care Provider [phone] DelShady wong PharmD Unavailable Unavail able Elsi Nolasco PharmD Unavailable Santosh Higgins MD Primary Care Provider Encounter Details Date Type Department Care Team (Late st Contact Info) Description 04/17/[address] [address] Myra Persaud DO [address] [place] [phone] Social History Tobacco Use Types Packs/Day Years [...] Description 01/17/2025 10:15 AM EDT Office Visit [address] [address] Santosh Higgins MD [address] [place] [phone] 01/26/2025 9:00 AM EDT Medication Management [address] [place] [address] Elsi Nolasco PharmD [address] [place] [address] 05/02/2025 2:00 PM EST Office Visit [facility] OPT[facility] [address] [place] [address] Jc, Helene, OD [address] [place] [address] documented as of this encounter Visit Diagnoses Not on filedocumented in this encounter Care Teams Passenger Agent Relationship Specialty Start Date End Date Myra Persaud DO [address] [place] [address] PCP - General Family Medicine 10/18/13 10/30/24 Santosh Higgins MD [address] [place] [phone] PCP - General Internal Medicine 10/31/24 Shady Slade PharmD [address] [place] [address] Pharmacist Internal Medicine 06/09/22 11/23/22 Elsi Nolasco, Amina [address] [place] [address] Pharmacist Internal Medicine 11/24/22 documented as of this encounter
== END 2025-01-12 10:05 | disposition home or self-care (01) ==
LOC: HO.US 10:04
PROVIDERS: PCP Internal Medicine Geriatric Medicine
DX: R74.01 Elevation of levels of liver transaminase levels (principal); R79.89 Other specified abnormal findings of blood chemistry
CPT/HCPCS: 36415; 76700; 76981; 85025

== ENCOUNTER → 2025-01-12 10:05 | Outpatient (BNV) | payer MEDICARE, MEDICAID, SELFPAY | PROVIDERS: PCP Internal Medicine Geriatric Medicine; Visit Provider Radiology Diagnostic Radiology | DX: K86.1 Other chronic pancreatitis (principal); K86.89 Other specified diseases of pancreas; N28.89 Other specified disorders of kidney and ureter | CPT/HCPCS: 76700 ==

== ENCOUNTER 2025-01-26 08:15 | Outpatient (REF) | payer MEDICARE, MEDICAID, SELFPAY ==
--- OUTSIDE RECORDS SUMMARY | 2025-01-26 08:50 | XMS_ITS | Clinical Summary ---
Author Organization [facility] Address [address] [place] [phone] Phone Care Team Providers Care Tufting Creeler Name Role Phone Myra Persaud DO Primary [...] 1 (one) time each day Active pancrelipase, Hve-Fhzi-Ldrx, (Creon) 15236-34485 units capsule Take 1 capsule by mouth [...] OTHER DAY IN THE MORNING 90 capsule 5 Active ergocalciferol 1.25 MG (07642 UT) capsuleIndicati ons:Stage 3b chronic kidney disease [...] Fatty liver 02/26/2015 Obstructive sleep apnea 02/26/2015 Immunizations Immunization Administration Dates Next Due Hepatitis [...] Visit [facility] [address] [place] [phone] Jeison Bhakta MD [address] [facility] [address] [place] [phone] Health Maintenance Due Date Last Done Comments Breast Cancer Screening 1955 Colorectal Cancer Screening: Annual FOBT 2005 Colorectal Cancer Screening: Colonoscopy 2005 Colorectal Cancer Screening: Sigmoidoscopy 2005 Diabetes: Ophthalmology Exam 08/19/2021 Diabetes: Pedal Pulse Checked 08/19/2021 Diabetes: Sensory Foot Exam 08/19/2021 Diabetes: Visual Foot Exam 08/19/2021 Influenza Vaccine (#1) 2024 4, 05/14/2022, 06/07/2021, Additional history exists Diabetes: Hemoglobin A1C 12/24/2024 025, 06/22/2024, 03/24/2024, Additional history exists Pneumococcal Vaccine: 50+ Years Completed 06/17/2022, 09/03/2017, 03/18/2012 Pneumococcal Vaccine: Peds (0 to 5 Years) and At-Risk Patients (6 to 49 Years) Discontinued 06/17/2022, 09/03/2017, 03/18/2012 Hepatitis B Vaccine Aged Out 03/24/2024, 10/07/2023, 08/27/2023 No longer eligible based on patient's age to complete this topic Insurance [place] Care Teams Tufting Creeler Relationship Specialty Start Date End Date Myra Persaud DO [address] [place] [address] PCP - General Family Medicine 07/31/21
[2025-01-26 12:07] LABS: Alanine Aminotransferase 17 U/L (0-31); Albumin Level 4.0 g/dL (3.5-5.0); Alkaline Phosphatase 120 U/L (39-117); Anion Gap 11 (12-20); Aspartate Amino Transferase 24 U/L (5-31); Blood Urea Nitrogen 21 mg/dL (9-16); Calcium 9.1 mg/dL (8.4-10.2); Carbon Dioxide 24 mmol/L (22-29); Chloride 113 mmol/L (96-108); Estimated Glomerular Filt Rate 33; Potassium 3.8 mmol/L (3.3-5.1); Sodium 144 mmol/L (135-145); Total Protein 7.2 g/dL (6.5-8.0)
== END 2025-01-26 08:16 | disposition home or self-care (01) ==
LOC: HO.HHCL 08:15
PROVIDERS: PCP Internal Medicine Geriatric Medicine; Visit Provider Internal Medicine Geriatric Medicine
DX: R74.01 Elevation of levels of liver transaminase levels (principal)
CPT/HCPCS: 36415; 80053